=== PATIENT | female | born 1975 | race Caucasian/White ===

== ENCOUNTER 2017-12-14 17:18 | Emergency (ER) | payer MEDICAID, SELFPAY ==
[2017-12-14 17:21] VITALS: BP 151/93; PULSE 100; RESP 22; TEMP 37.2; BMI 29.9
== END 2017-12-14 18:11 | disposition left against medical advice (07) ==
LOC: ED 18:10
PROVIDERS: Emergency Provider Emergency Medicine; Family Provider Family Medicine; PCP Family Medicine
DX: R69 Illness, unspecified (principal)

== ENCOUNTER 2018-01-26 17:08 | Emergency (ER) | payer OTHER, SELFPAY ==
[2018-01-26 17:10] VITALS: BP 115/68; PULSE 104; RESP 18; TEMP 36.7; O2SAT 98; BMI 30.1
--- NOTE | 2018-01-26 17:32 | ED.VISSUMM ---
- ER Visit Summary Date of Service: 01/26/18 Chief Complaint: [Back injury] History of Present Illness: The patient is a 42 F [presents to the emergency department with injury to her back that occurred approximately 4 PM today. Patient states that she needed apart so she reached overhead move a palate that was above her head. The palate shifted patient twisted her back. Patient felt a pop in her back. Patient complains of pain radiating down the backside of her right leg. She states she has had similar symptoms in the past and she had an MRI about a year ago that showed a herniated disc but does not remember what level. Patient denies loss of bowel or bladder function. She denies any saddle anesthesia.] Physical Examination: [HEENT-PERRLA, EOMI. Cranial nerves II through XII grossly intact. TMs clear. Mucous membranes moist. No adenopathy. Cardiovascular-regular rate and rhythm without murmur or ectopy Lungs-clear to auscultation, chest wall stable without crepitus or subcu emphysema Abdomen-normoactive bowel sounds, soft, nontender, no rebound or rigidity, no peritoneal signs. Back exam-patient has tenderness to palpation over the right lumbar paraspinal musculature. Patient has tenderness over the right buttock and right piriformis muscle. Patient has a positive straight leg raise with pain at about 20?. Deep tendon reflexes are plus 2 out of 4 bilaterally at the patella and Achilles. Patient has normal L5 extension bilaterally. Patient has somewhat decreased sensation to light touch over the lateral aspect of the right calf. Extremities-intact ?4, normal range of motion, normal pulses, atraumatic] Test Results: [None indicated] Emergency Department Course and Treatment: [Patient was medicated with Dilaudid and Norflex. Patient required second and third dose of Dilaudid for pain. She is feeling much improved at this time. Patient was given option of admission for pain control versus home with pain meds and outpatient follow-up. Patient does not want to be admitted at this time.] Treatment Plan: [Patient to follow-up with [facility] within next 3-5 days and given work restriction's.] Patient given a prescription for Flexeril and Percocet. Disposition: [Discharged home in stable condition] Impression: [Lumbar radiculopathy Lumbar strain] This note was generated with [employer] software. It may contain incorrect words, spelling, and punctuation that were not noted in review of the chart prior to signing ED Disposition - Plan for ED Patient: Chief Complaint: Back Referrals: Care Physician,No Primary [Primary Care Provider] -
[2018-01-26] MEDS: HYDROmorphone 1 MG/ML Syringe IM ×3 (17:38→19:42)
[2018-01-26] MEDS: Orphenadrine 60 MG/2 ML Ampul IM (17:38)
[2018-01-26] MEDS: Ondansetron ODT 4 MG Tablet PO (17:50)
--- NOTE | 2018-01-26 19:10 | ED.DEP ---
ED Disposition - Plan for ED Patient: Chief Complaint: Back Instructions: ED Spasm Back No Trauma, ED Sciatica Prescriptions: Oxycodone HCl/Acetaminophen [Percocet 5/325] 1 tab PO Q6H PRN PRN 5 Days #20 tab PRN Reason: Pain Cyclobenzaprine [Flexeril] 10 mg PO TID PRN #20 tab PRN Reason: Muscle Spasm Referrals: Care Physician,No Primary [Primary Care Provider] - [facility] - 3-5 Days
[2018-01-26 20:25] VITALS: BP 127/75; PULSE 75; RESP 18; O2SAT 95
== END 2018-01-26 20:26 | disposition home or self-care (01) ==
PROVIDERS: Emergency Provider Emergency Medicine
DX: M54.16 Radiculopathy, lumbar region (principal); S39.012A Strain of muscle, fascia and tendon of lower back, initial encounter; M79.7 Fibromyalgia; Z72.0 Tobacco use; Z79.899 Other long term (current) drug therapy; X50.1XXA Overexertion from prolonged static or awkward postures, initial encounter; Y93.89 Activity, other specified; Y92.1 Institutional (nonprivate) residence as the place of occurrence of the external cause; Y99.8 Other external cause status
CPT/HCPCS: 99282

== ENCOUNTER 2018-02-10 21:17 | Emergency (ER) | payer OTHER, SELFPAY ==
[2018-02-10 21:19] VITALS: BP 126/102; PULSE 113; RESP 16; TEMP 36.8; O2SAT 99; BMI 30.1
[2018-02-10] MEDS: HYDROcodone Bitartrate/Apap 5/325 Tablet PO (21:50)
[2018-02-10] MEDS: predniSONE 20 MG Tablet 40 MG PO (21:50)
--- NOTE | 2018-02-10 22:03 | ED.VISSUMM ---
- ER Visit Summary Date of Service: 02/10/18 Chief Complaint: Low back pain History of Present Illness: The patient is a 42 F who presents for several days of low back pain status post an injury at work. Patient was seen on January 26 of this year for a Worker's Comp. injury, in which she injured her lower back while at work. Patient states that she is taking Flexeril currently without any relief. Her pain is severe located in the bilateral lower back and radiating down into her right leg to the toes. She states she is under work restrictions to only sit or to stand on a concrete floor, and her back is not getting any better. Pain is worse with moving and standing. She has tried heat without improvement. Flexeril is not working. Patient states she is allergic to all NSAIDs. She was given prescription for Percocet with some improvement. Pain is sharp. Patient denies any fever, abdominal pain, urinary or bowel incontinence or retention. Patient had an MRI recently and brought the report with her. Physical Examination: Vital signs: afebrile, hemodynamically stable, no hypoxia on room air General: well nourished, well developed, in no distress but tearful Skin: warm, dry, no rash, no pallor HEENT: normocephalic and atraumatic; PERRL, EOMI, moist mucous membranes Cardiovascular: tachycardic rate and rhythm without murmurs, no peripheral edema, 2+ pulses all distal extremities Respiratory: No increased work of breathing, lungs are clear to auscultation bilaterally, no rales, rhonchi or wheezing Abdominal: Abdomen is soft, nontender with normoactive bowel sounds, no guarding or rebound, no masses Back: Diffuse tenderness to palpation in the lumbar paraspinal musculature bilaterally and diffusely in the midline, no foreign bodies, step-offs, fluctuance or induration; no erythema --patient is very waite diffusely and evenly MSK: Moves all extremities, no deformities, weakness with plantar flexion, dorsiflexion and EHL in the right lower extremity with poor effort. Patellar reflexes are 2+ and symmetric. Patient has diffuse diminished sensation to light touch in the right lower extremity following no dermatomal or radicular pattern. Neuro: Awake and alert, oriented ?4. No facial droop, sensation and motor function intact and symmetric Test Results: [] Emergency Department Course and Treatment: Discussed with patient that back injuries and back pain take days to weeks to heal. Patient already has an MRI performed which she brought with her, and it showed no concerning findings that would require emergent spinal decompression or further emergent evaluation. Oars report was performed on patient and shows 2 prescriptions for Percocet since the injury occurred and multiple prescriptions from multiple providers for opiates and benzodiazepines. Patient states she does take clonazepam on a regular basis anxiety. Discussed with her that I cannot write her an opiate prescription due to her multiple recent prescriptions as well as the fact she is also a benzodiazepine, and a combination of the 2 increases her risk of accidental overdose and . Patient is allergic to all NSAIDs per the patient, and thus stated she cannot take any of those. She is taking Tylenol and states it does not work. Patient was given a dose of prednisone and a Medrol Dosepak prescription to see if that will help her pain. Patient's neuro exam was diffuse in the right lower extremity and did not clinically make sense, as it would be expected patient would have sensory and motor deficits in a specific nerve pattern rather than on the hip down. Patient gave poor effort on her strength examination. Thus I do not think her sensory and motor deficits reflect any active nerve compression. Patient requested a work excuse for tomorrow, and we discussed she is under the care of Worker's Comp. and already has work restrictions in place. She needs to follow-up with her Worker's Comp. physician if she needs any adjustments to her work restrictions. She was discharged home. She walked out of the emergency department with an even gait and no evidence of footdrop or limp. Treatment Plan: [] Disposition: [] Impression: lower back injury, subsequent visit This note was generated with [email or web address] dictation software. It may contain incorrect words, spelling, and punctuation that were not noted in review of the chart prior to signing ED Disposition - Plan for ED Patient: Disposition: Home or Assisted Living Chief Complaint: Back Instructions: ED Low Back Pain Injury Prescriptions: MethylPREDNISolone DosePak [Medrol DosePak] 4 mg PO UD #1 box Referrals: Care Physician,No Primary [Primary Care Provider] - Doctor,Your [STAFF PHYSICIAN] - As soon as possible Additional Instructions: Please continue using the Flexeril that you have previously been prescribed as needed for your pain. Use [id number] pain medication of your choice. Please take the steroid Dosepak as directed to help further with your pain. We will need to follow-up with your Worker's Comp physician for further discussion of work restrictions. Please keep your scheduled appointment or call to schedule an appointment for sooner date if possible.
[2018-02-10 22:12] VITALS: RESP 16
== END 2018-02-10 22:12 | disposition home or self-care (01) ==
PROVIDERS: Emergency Provider Emergency Medicine
DX: S39.012D Strain of muscle, fascia and tendon of lower back, subsequent encounter (principal); X58.XXXD Exposure to other specified factors, subsequent encounter; R20.2 Paresthesia of skin; R53.1 Weakness; F41.9 Anxiety disorder, unspecified; Z79.899 Other long term (current) drug therapy
CPT/HCPCS: 99283

== ENCOUNTER 2018-04-10 17:39 | Emergency (ER) | payer BC, MEDICAID, SELFPAY ==
[2018-04-10 17:40] VITALS: BP 150/85; PULSE 91; RESP 16; TEMP 36.6; O2SAT 98; BMI 32.1
[2018-04-10] MEDS: 0.9% Normal Saline 1,000 ML 150 ML IV (18:50)
[2018-04-10] MEDS: MethylPREDNISolone 125 MG/2 ML Vial IV (18:50)
[2018-04-10] MEDS: DiphenhydrAMINE 50 MG/ML Syringe 25 MG IV (18:51)
[2018-04-10] MEDS: Ondansetron 4 MG/2 ML Vial IV (18:51)
[2018-04-10 18:55] LABS: Absolute Lymphocyte Count 3.22 X10^3/ul (0.83-4.51); Absolute Neutrophil Count 6.1 X10^3/uL (2.0-7.7); Basophil# 0.04 X10^3/uL; Basophil% 0.4 % (0-1); Eosinophil# 0.17 X10^3/uL; Eosinophils% 1.7 % (0-5); Hematocrit 45.4 % (37-47); Hemoglobin 15.1 g/dl (12.0-15.0); Lymphocyte # 3.22 X10^3/ul (4.0); Lymphocyte % 31.7 % (19-41); Mean Corp Hgb Conc 33.3 g/gl (32-36); Mean Corpuscular Hgb 32.1 pg (27.0-32.0); Mean Corpuscular Volume 96.6 fL (81-99); Monocyte# 0.56 X10^3/uL; Monocyte% 5.5 % (0-10); Neutrophil # 6.14 X10^3/uL (2.7-7.7); Neutrophil % 60.5 % (47-70); Platelet Count 237 K/mm3 (150-450); RBC Distribution Width SD 45.6 fl (35.1-43.9); White Blood Count 10.2 K/mm3 (4.4-11.0)
[2018-04-10 18:57] LABS: International Normalized Ratio 0.9; Prothrombin Time (Protime)PT. 12.4 SECONDS (11.7-14.9)
[2018-04-10 19:04] LABS: Anion Gap 7 (5-15); BUN 9 mg/dL (7-18); BUN/Creat Ratio 10.9 RATIO (10-20); Calcium,Total 9.1 mg/dL (8.5-10.1); Chloride 109 mmol/L (98-107); Creatinine, Serum 0.82 mg/dL (0.55-1.02); EST Glomerular Filtration Rate 81 mL/min (>60); Est Glom Filt Rate - Afr Amer 98 mL/min (>60); Estimated Creatinine Clearance 74.69 ml/min; Glucose 85 mg/dL (74-106); Potassium 3.6 mmol/L (3.5-5.1); Sodium Level 140 mmol/L (136-145)
[2018-04-10 19:06] LABS: POSITIVE COUNT NO; POSITIVE DIFFERENTIAL NO; POSITIVE MORPHOLOGY NO
[2018-04-10 19:10] LABS: Pregnancy, Serum, hCG Quali. NEGATIVE Negative (0-9 Nonpreg)
[2018-04-10 19:14] VITALS: BP 127/88; PULSE 81; RESP 20; O2SAT 100
[2018-04-10 20:04] VITALS: BP 139/86; PULSE 71; RESP 18; O2SAT 100
[2018-04-10] MEDS: HYDROmorphone 0.5 MG/0.5 ML SYRINGE IV ×2 (20:04→21:10)
[2018-04-10 20:30] VITALS: BP 150/89; PULSE 71; RESP 18; O2SAT 96
[2018-04-10] MEDS: Metoclopramide 10 MG/2 ML Vial IV (21:10)
[2018-04-10] MEDS: DiphenhydrAMINE 50 MG/ML Syringe 12.5 MG IV (21:10)
--- NOTE | 2018-04-10 22:40 | ED.VISSUMM ---
- ER Visit Summary Date of Service: 04/10/18 Chief Complaint: Headache History of Present Illness: The patient is a 43 F with a history of migraines. Patient states she had gradual onset of a slight headache with some double vision. Headache and suddenly worsened. She reported had a syncopal episode at work. She denies any recent head trauma. No URI symptoms. She does state her father of a stroke at age 40. Patient has had multiple imaging studies of her head and denies known history of aneurysm. Physical Examination: Blood pressure is 150/85, other vitals normal. Patient's lying in a darkened room with a washcloth over her eyes. Pupils are equal and reactive. Neck is nontender with no meningismus. Heart is regular rate and rhythm. Lung sounds are clear. Abdomen is soft nontender. Neuro exam reveals no focal deficits with good strength and sensation throughout. Test Results: Noncontrast head CT is unremarkable. CTA head is unremarkable. Blood work unremarkable. test is negative. Emergency Department Course and Treatment: Patient does have an allergy to IV contrast and due to initial concern for possible subarachnoid hemorrhage was pretreated with Benadryl, Zofran, and Solu-Medrol. After noncontrast head CT returned okay she was given a small dose of Dilaudid. Patient does have multiple allergies to pain medication and other options were not easily available. Patient was sent for a CTA of the head which was unremarkable. Due to continued pain she did receive 1 final dose of Dilaudid, Reglan, and Benadryl. On final repeat evaluation she is sitting up looking around the room. She states she feels significantly improved and wishes to go home. Test results were discussed with the patient and family at bedside. Treatment Plan: [] Disposition: Discharge Impression: Cephalgia, resolved This note was generated with [employer] dictation software. It may contain incorrect words, spelling, and punctuation that were not noted in review of the chart prior to signing ED Disposition - Plan for ED Patient: Disposition: Home or Assisted Living Chief Complaint: Headache Instructions: ED Headache Migraine Prescriptions: proMETHazine tablet [Phenergan] 25 mg PO Q6H PRN PRN #10 tablet PRN Reason: Nausea Referrals: Ish Zhu MD [STAFF PHYSICIAN] - As Needed
[2018-04-10 22:50] VITALS: BP 115/83; PULSE 81; RESP 16; O2SAT 99
[2018-04-10] MEDS: proMETHazine 25 MG Tablet PO (22:50)
== END 2018-04-10 22:51 | disposition home or self-care (01) ==
PROVIDERS: Emergency Provider Emergency Medicine
DX: G43.909 Migraine, unspecified, not intractable, without status migrainosus (principal); K21.9 Gastro-esophageal reflux disease without esophagitis; F41.9 Anxiety disorder, unspecified; F32.9 Major depressive disorder, single episode, unspecified; Z90.710 Acquired absence of both cervix and uterus; Z79.899 Other long term (current) drug therapy; Z72.0 Tobacco use
CPT/HCPCS: 70450; 70496; 80048; 84703; 85025; 85610; 85730; 96361; 96374; 96375; 96376; 99284; J7030; Q9967; A4216

== ENCOUNTER 2018-06-16 17:10 | Emergency (ER) | payer BC, SELFPAY ==
[2018-06-16 17:11] VITALS: BP 132/78; PULSE 87; RESP 22; TEMP 36.6; O2SAT 98; BMI 30.1
--- NOTE | 2018-06-16 17:31 | CT_ITS ---
STUDY: CT ABDOMEN AND PELVIS WITHOUT CONTRAST REASON FOR EXAM: Female, 43 years old. Right-sided abdominal pain RADIATION DOSAGE (If Supplied By Facility): CTDIvol = ( 8.32 ) mGy, DLP = ( 382.49 ) mGycm TECHNIQUE: Transaxial images were obtained from the dome of the diaphragm to the symphysis pubis without oral contrast, and without intravenous contrast. Sagittal and coronal images were reconstructed. # of Images: 429 Individualized dose optimization techniques were used for this CT. COMPARISON: 12/06/2013 FINDINGS: The visualized lung bases are unremarkable. The visualized portions of the heart are within normal limits. Normal liver. Normal gallbladder and extrahepatic biliary system. Normal spleen. Normal pancreas. Normal bilateral adrenal glands. Normal right kidney. Normal left kidney. Normal visualized stomach. Normal small intestine. Normal colon. The appendix is visualized and appears normal. Normal abdominal aorta. Normal inferior vena cava. Normal retroperitoneum. Normal urinary bladder. Multiseptated cystic structure in the left adnexa measuring roughly 8.9 x 5.3 cm. Probable complicated ovarian or paraovarian cyst. Status post hysterectomy. Normal abdominal wall. Normal osseous structures. CT/Abdomen/Pelvis without Cont IMPRESSION: 1. No evidence of urolithiasis or renal obstruction 2. Unremarkable appendix 3. Large multiseptated cystic structure in the left adnexa, likely adnexal cyst versus ovarian cyst. Recommend pelvic ultrasound to further evaluate Electronically Signed: Kwasi Willett DO at 18:41 EDT Tel , Service support ,
--- NOTE | 2018-06-16 17:33 | ED.DCSUM_ITS ---
- ER Visit Summary Date of Service: 06/16/18 Chief Complaint: Right flank pain History of Present Illness: The patient is a 43 F presenting with right flank and right lower quadrant abdominal pain. She states this started suddenly while at work. She has nausea with no vomiting. Denies fever. Denies dysuria or hematuria. She has never had these symptoms in the past. Denies other complaints. Physical Examination: Vitals are stable. Patient is afebrile. Alert no acute distress. HEENT exam is unremarkable. Neck is supple. Lungs are clear and equal bilaterally. Heart is regular rate and rhythm. Abdomen is soft right lower quadrant tenderness with no rebound or guarding Pelvic: No cervical motion tenderness, left adnexal tenderness. No discharge Back: Right CVA tenderness Extremities are unremarkable. Skin is warm and dry. Remainder of exam is unremarkable. Emergency Department Course and Treatment: Patient is given morphine, Zofran IV. CT abdomen pelvis shows no evidence of urolithiasis or renal obstruction, unremarkable appendix, large multiseptated cystic structure in the left adnexa, likely adnexal cyst versus ovarian cyst. Recommend pelvic ultrasound to further evaluate. Pelvic ultrasound shows 2 left ovarian cysts, one is simple in appearance and the second is complex in appearance. Recommend repeat pelvic ultrasound in 4-6 weeks. Status post hysterectomy. Normal right ovary. Patient initially felt the pain on the right but she states it does radiate to the left side as well. Patient was given Dilaudid IV with improvement of her symptoms. CBC, chemistries unremarkable. Urinalysis is unremarkable. Patient is given prescription for short course of [place]. 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 Advised return to ED for worsening complaints. Disposition: Discharge home Impression: Left ovarian cyst This note was generated with [employer] dictation software. It may contain incorrect words, spelling, and punctuation that were not noted in review of the chart prior to signing ED Disposition - Plan for ED Patient: Chief Complaint: Flank Pain Instructions: ED Cyst Ovarian Prescriptions: Hydrocodone Bitart/Apap 5-325 [[place] 5MG-325MG] 1 tablet PO Q6H PRN PRN 3 Days #10 tablet PRN Reason: Pain Referrals: Becca Gaines MD [STAFF PHYSICIAN] - Care Physician,No Primary [NON-STAFF] -
[2018-06-16] MEDS: Morphine 4 MG/ML Syringe IV ×2 (17:37→21:17)
[2018-06-16] MEDS: Ondansetron 4 MG/2 ML Vial IV (17:37)
[2018-06-16 17:52] LABS: Bacteria 0 SEEN /hpf (None Seen); Mucous, Urine 0 SEEN /hpf (<or=2+); Red Blood Cells-Urine 0 SEEN /hpf (0-5); White Blood Cells 0 SEEN /hpf (0-5)
[2018-06-16 17:56] LABS: Absolute Lymphocyte Count 3.65 X10^3/ul (0.83-4.51); Basophil# 0.05 X10^3/uL; Basophil% 0.5 % (0-1); Eosinophils% 2.1 % (0-5); Hematocrit 41.7 % (37-47); Hemoglobin 14.4 g/dl (12.0-15.0); Lymphocyte # 3.65 X10^3/ul (4.0); Mean Corp Hgb Conc 34.5 g/gl (32-36); Mean Corpuscular Hgb 33.3 pg (27.0-32.0); Mean Corpuscular Volume 96.3 fL (81-99); Mean Platelet Vol. 11.9 fl (6.2-12.0); Monocyte# 0.67 X10^3/uL; Neutrophil % 52.1 % (47-70); Platelet Count 197 K/mm3 (150-450); RBC Distribution Width CV 12.2 % (11.6-14.6); RBC Distribution Width SD 41.9 fl (35.1-43.9); Red Blood Count 4.33 M/mm3 (4.2-5.4); White Blood Count 9.6 K/mm3 (4.4-11.0)
[2018-06-16 17:58] LABS: POSITIVE COUNT NO; POSITIVE DIFFERENTIAL NO; POSITIVE MORPHOLOGY NO
[2018-06-16 18:02] LABS: Color, Urine Yellow (Yellow); Glucose, Dipstick Normal (Normal); Ketone-Dipstick Negative (Negative); Leukocyte Esterase-Dipstick Negative /ul (Negative); Nitrite-Dipstick Negative (Negative); Occult Blood-Urine Negative /ul (Negative); Protein-Dipstick Negative (Negative); Urine Bilirubin Dipstick Negative (Negative); Urine Clarity Clear (Clear); Urine Urobilinogen Normal (Normal)
[2018-06-16 18:15] LABS: Anion Gap 8 (5-15); BUN 11 mg/dL (7-18); BUN/Creat Ratio 14.3 RATIO (10-20); Chloride 109 mmol/L (98-107); Creatinine, Serum 0.77 mg/dL (0.55-1.02); EST Glomerular Filtration Rate 88 mL/min (>60); Est Glom Filt Rate - Afr Amer 106 mL/min (>60); Estimated Creatinine Clearance 79.54 ml/min; Glucose 85 mg/dL (74-106); Potassium 3.9 mmol/L (3.5-5.1); Sodium Level 142 mmol/L (136-145)
[2018-06-16 18:26] LABS: Squamous Epithelial Cells - UA 0-5 SEEN /hpf (5-10)
[2018-06-16] MEDS: HYDROmorphone 1 MG/ML Syringe IV (18:32)
--- NOTE | 2018-06-16 19:20 | US_ITS ---
STUDY: ULTRASOUND OF THE FEMALE PELVIS - COMPLETE REASON FOR EXAM: Female, 43 years old. Pelvic pain LMP: Unknown. TECHNIQUE: Transabdominal and Transvaginal # of Images: 50 TECHNICAL QUALITY: Adequate. COMPARISON: CT abdomen and pelvis earlier FINDINGS: Status post hysterectomy The right ovary is visualized. The right ovary measures 2.5 x 1.6 x 1.6 cm. There is no right ovarian cyst or ovarian mass. There is no visualized right adnexal mass or complex lesion. There is normal arterial and normal venous vascularity. The left ovary is visualized. The left ovary measures 8.4 x 7.1 x 5.4 cm. There are 2 ovarian cysts, one measures 4.6 x 4.8 x 5.0 cm. This cyst is anechoic and simple in appearance. A second cyst is noted measuring 5.1 x 4.9 x 4.6 cm. This is complex in nature with a soft tissue mural component, without vascularity. There is no visualized left adnexal mass or complex lesion. There is normal arterial and normal venous vascularity. There is no fluid in the cul-de-sac. The pre void volume of the bladder was 50 ml. US/Pelvic (Non ) IMPRESSION: 2 left ovarian cysts, one is simple in appearance and the second is complex in appearance. Recommend repeat pelvic ultrasound in 4-6 weeks. Status post hysterectomy. Normal right ovary. Electronically Signed: Kwasi Willett DO at 21:52 EDT Tel , Service support ,
--- NOTE | 2018-06-16 19:20 | US_ITS ---
STUDY: ULTRASOUND OF THE FEMALE PELVIS - COMPLETE REASON FOR EXAM: Female, 43 years old. Pelvic pain LMP: Unknown. TECHNIQUE: Transabdominal and Transvaginal # of Images: 50 TECHNICAL QUALITY: Adequate. COMPARISON: CT abdomen and pelvis earlier FINDINGS: Status post hysterectomy The right ovary is visualized. The right ovary measures 2.5 x 1.6 x 1.6 cm. There is no right ovarian cyst or ovarian mass. There is no visualized right adnexal mass or complex lesion. There is normal arterial and normal venous vascularity. The left ovary is visualized. The left ovary measures 8.4 x 7.1 x 5.4 cm. There are 2 ovarian cysts, one measures 4.6 x 4.8 x 5.0 cm. This cyst is anechoic and simple in appearance. A second cyst is noted measuring 5.1 x 4.9 x 4.6 cm. This is complex in nature with a soft tissue mural component, without vascularity. There is no visualized left adnexal mass or complex lesion. There is normal arterial and normal venous vascularity. There is no fluid in the cul-de-sac. The pre void volume of the bladder was 50 ml. US/Transvaginal Non- IMPRESSION: 2 left ovarian cysts, one is simple in appearance and the second is complex in appearance. Recommend repeat pelvic ultrasound in 4-6 weeks. Status post hysterectomy. Normal right ovary. Electronically Signed: Kwasi Willett DO at 21:52 EDT Tel , Service support ,
[2018-06-16 19:29] VITALS: BP 122/77; PULSE 81; RESP 16; O2SAT 95
[2018-06-16 21:01] VITALS: RESP 16
--- NOTE | 2018-06-16 22:33 | ED.DEP ---
ED Disposition - Plan for ED Patient: Chief Complaint: Flank Pain Instructions: ED Cyst Ovarian Prescriptions: Hydrocodone Bitart/Apap 5-325 [[place] 5MG-325MG] 1 tablet PO Q6H PRN PRN 3 Days #10 tablet PRN Reason: Pain Referrals: Care Physician,No Primary [NON-STAFF] - Becca Gaines MD [STAFF PHYSICIAN] -
--- NOTE | 2018-06-16 22:37 | DCINST.ED_ITS ---
ED Disposition - Plan for ED Patient: Chief Complaint: Flank Pain Instructions: ED Cyst Ovarian Prescriptions: Hydrocodone Bitart/Apap 5-325 [[place] 5MG-325MG] 1 tablet PO Q6H PRN PRN 3 Days #10 tablet PRN Reason: Pain Referrals: Care Physician,No Primary [NON-STAFF] - Becca Gaines MD [STAFF PHYSICIAN] -
[2018-06-16] MEDS: HYDROcodone Bitartrate/Apap 5/325 Tablet PO (22:43)
[2018-06-16 22:50] VITALS: BP 111/72; PULSE 77; RESP 16; O2SAT 95
--- NOTE | 2018-06-16 22:51 | ED.RN ---
REVIEWED D/C INSTRUCTIONS, FOLLOW UP CARE, PRESCRIPTION, AND S/S THAT WOULD WARRANT A RETURN TO THE ED WITH PT. PT VERBALIZED AN UNDERSTANDING AND DENIES FURTHER QUESTIONS FOR THIS RN. PT SKIN P/W/D, RESP EVEN AND UNLABORED, PT A&O X 3, NO DISTRESS NOTED. PT AMBULATED OUT OF ED, GAIT STEADY.
== END 2018-06-16 22:53 | disposition home or self-care (01) ==
PROVIDERS: Emergency Provider Emergency Medicine; Family Provider Family Medicine; PCP Family Medicine
DX: N83.202 Unspecified ovarian cyst, left side (principal); M79.7 Fibromyalgia; Z90.710 Acquired absence of both cervix and uterus; Z79.899 Other long term (current) drug therapy; Z72.0 Tobacco use
CPT/HCPCS: 74176; 76830; 76856; 80048; 81001; 85025; 93976; 96374; 96375; 96376; 99283; A4216; J2405

== ENCOUNTER 2018-06-19 01:54 | Observation (INO) | payer BC, SELFPAY ==
[2018-06-19] VITALS (8 sets, daily range): BP systolic 88–128; BP diastolic 47–82; PULSE 68–90; RESP 14–18; TEMP 36.5–37.3; O2SAT 93–100; BMI 31.1; BMI 30.5
[2018-06-19 02:19] LABS: Bacteria 0 SEEN /hpf (None Seen); Mucous, Urine 0 SEEN /hpf (<or=2+)
[2018-06-19 02:24] LABS: Color, Urine Yellow (Yellow); Glucose, Dipstick Normal (Normal); Ketone-Dipstick Negative (Negative); Leukocyte Esterase-Dipstick 25 /ul (Negative); Nitrite-Dipstick Negative (Negative); Occult Blood-Urine 10 /ul (Negative); Protein-Dipstick 30 mg/dl (Negative); Specific Gravity, Urine 1.015 (1.002-1.030); Urine Bilirubin Dipstick Negative (Negative); Urine Clarity Sl. Cloudy (Clear); Urine Urobilinogen 1 mg/dl (Normal)
[2018-06-19 02:28] LABS: Absolute Lymphocyte Count 3.96 X10^3/ul (0.83-4.51); Absolute Neutrophil Count 5.2 X10^3/uL (2.0-7.7); Basophil# 0.06 X10^3/uL; Basophil% 0.6 % (0-1); Eosinophil# 0.19 X10^3/uL; Eosinophils% 1.9 % (0-5); Hematocrit 42.8 % (37-47); Hemoglobin 14.5 g/dl (12.0-15.0); Lymphocyte # 3.96 X10^3/ul (4.0); Lymphocyte % 39.6 % (19-41); Mean Corp Hgb Conc 33.9 g/gl (32-36); Mean Corpuscular Hgb 32.8 pg (27.0-32.0); Mean Corpuscular Volume 96.8 fL (81-99); Mean Platelet Vol. 11.1 fl (6.2-12.0); Monocyte# 0.62 X10^3/uL; Monocyte% 6.2 % (0-10); Neutrophil # 5.16 X10^3/uL (2.7-7.7); Neutrophil % 51.5 % (47-70); Platelet Count 196 K/mm3 (150-450); RBC Distribution Width CV 12.3 % (11.6-14.6); RBC Distribution Width SD 42.8 fl (35.1-43.9); Red Blood Count 4.42 M/mm3 (4.2-5.4)
[2018-06-19 02:31] LABS: Squamous Epithelial Cells - UA 25-50 SEEN /hpf (5-10); White Blood Cells 0-5 SEEN /hpf (0-5)
[2018-06-19 02:32] LABS: Red Blood Cells-Urine 0-5 SEEN /hpf (0-5)
[2018-06-19 02:32] LABS: POSITIVE COUNT NO; POSITIVE DIFFERENTIAL NO; POSITIVE MORPHOLOGY NO
[2018-06-19 02:42] LABS: Anion Gap 5 (5-15); BUN 10 mg/dL (7-18); BUN/Creat Ratio 13.1 RATIO (10-20); Calcium,Total 8.4 mg/dL (8.5-10.1); Chloride 109 mmol/L (98-107); Creatinine, Serum 0.76 mg/dL (0.55-1.02); EST Glomerular Filtration Rate 88 mL/min (>60); Est Glom Filt Rate - Afr Amer 107 mL/min (>60); Estimated Creatinine Clearance 80.58 ml/min; Glucose 106 mg/dL (74-106); Potassium 3.6 mmol/L (3.5-5.1); Sodium Level 140 mmol/L (136-145)
[2018-06-19] MEDS: Ondansetron 4 MG/2 ML Vial IV (02:47)
[2018-06-19] MEDS: HYDROmorphone 1 MG/ML Syringe IV ×3 (02:47→10:58)
[2018-06-19 02:50] LABS: Pregnancy, Serum, hCG Quali. NEGATIVE Negative (0-9 Nonpreg)
--- NOTE | 2018-06-19 02:51 | CT_ITS ---
STUDY: CT ABDOMEN AND PELVIS WITHOUT CONTRAST REASON FOR EXAM: Female, 43 years old. Abdominal pain, nausea, bloating. RADIATION DOSAGE (If Supplied By Facility): CTDIvol = ( 8.70 ) mGy, DLP = ( 441.03 ) mGycm TECHNIQUE: Transaxial images were obtained from the dome of the diaphragm to the symphysis pubis with oral contrast, and without intravenous contrast. Sagittal and coronal images were reconstructed. Individualized dose optimization techniques were used for this CT. COMPARISON: June 16, 2018. December 06, 2013. Pelvic ultrasound June 19, 2018. FINDINGS: The visualized lung bases are unremarkable. The visualized portions of the heart are within normal limits. There is decreased attenuation of the liver consistent with steatosis. Normal gallbladder and extrahepatic biliary system. Normal spleen. Normal pancreas. Normal bilateral adrenal glands. Normal right kidney. Normal left kidney. Normal visualized stomach. Normal small intestine. At the time of imaging only the stomach, duodenum and proximal/mid jejunum were opacified with oral contrast. Normal colon. The appendix is visualized and appears normal. Normal abdominal aorta. Normal inferior vena cava. Normal retroperitoneum. No intra-abdominal free air. Normal urinary bladder. Uterus grossly normal. 7.7 x 5.7 cm minimally complex left ovarian cyst, unchanged since the recent prior CT scan and not present on the study of November 2013. The thickened septation seen on the ultrasound is not appreciated on this study. Normal abdominal wall. Normal osseous structures. CT/Abdomen/Pel W ORAL Cont Only IMPRESSION: No acute findings in the abdomen or pelvis. Fatty liver. Enlarged left ovary containing a 7.7 cm minimally complex left ovarian cyst. There is a thickened septation within the cyst on the pelvic ultrasound not appreciated on this study. Considerations include both benign and malignant neoplasms. Recommend SCRIPT WORKER consult. No evidence of bowel obstruction. Electronically Signed: Yury Ann MD at 5:38 EDT , Service support ,
--- NOTE | 2018-06-19 02:51 | US_ITS ---
STUDY: ULTRASOUND TRANSVAGINAL CLINICAL: Female, 43 years old. Ovarian cyst. TECHNIQUE: Transvaginal COMPARISON: 06/16/2018. CT abdomen and pelvis June 16, 2018. FINDINGS: Uterus is absent. Right ovary not visualized. Left ovary measures 8.8 x 6.3 x 4.8 cm and contains an anechoic cyst measuring 8.0 x 6.1 x 4.4 cm which contains a thickened septation.. There is no free fluid in the pelvis. Polycystic ovary disease: No. US/Transvaginal Non- IMPRESSION: Enlarged left ovary containing an 8 cm cyst with a thick septation. Considerations include both benign and malignant neoplasms. Recommend AUTOMATIC OPERATOR consult. Electronically Signed: Yury Ann MD at 4:54 EDT , Service support ,
[2018-06-19] MEDS: HYDROmorphone 0.5 MG/0.5 ML SYRINGE IV (04:09)
--- NOTE | 2018-06-19 04:55 | ED.VISSUMM ---
- ER Visit Summary Date of Service: 06/19/18 Chief Complaint: Abdominal pain History of Present Illness: The patient is a 43 F presenting with left lower quadrant abdominal pain. This started 3 days ago. She was seen in the ED at that time. She had a CT scan and pelvic ultrasound which showed a simple and complex left ovarian cyst. She was sent home with [place]. She states [place] is not helping. She believes the pain has worsened. She now complains of bloating as well. She denies fever. Denies other complaints. Physical Examination: Vitals are stable. Patient is afebrile. Alert no acute distress. HEENT exam is unremarkable. Neck is supple. Lungs are clear and equal bilaterally. Heart is regular rate and rhythm. Abdomen is soft left lower quadrant tenderness with no rebound or guarding Extremities are unremarkable. Skin is warm and dry. Remainder of exam is unremarkable. Emergency Department Course and Treatment: Patient was given Dilaudid, Zofran IV. CBC chemistries unremarkable. Urinalysis unremarkable. HCG negative. Pelvic ultrasound shows enlarged left ovary containing an 8 cm cyst with a thick septation. Considerations include both benign and malignant neoplasms. Recommend RECREATION FACILITY ATTENDANT consult. CT abdomen pelvis with po contrast shows no acute findings in the abdomen or pelvis. Fatty liver. Enlarged left ovary containing a 7.7 cm minimally complex left ovarian cyst. Considerations include both benign and malignant neoplasms. Recommend RECREATION FACILITY ATTENDANT consult. No evidence of bowel obstruction. Discussed with Dr Gaines and she will evaluate the patient in the ED. Disposition: pending 911 OPERATOR eval Impression: Complex left ovarian cyst This note was generated with [employer] dictation software. It may contain incorrect words, spelling, and punctuation that were not noted in review of the chart prior to signing ED Disposition - Plan for ED Patient: Chief Complaint: Abd Pain Referrals: Antonino Billy MD [Primary Care Provider] -
--- NOTE | 2018-06-19 07:22 | ED.DEP ---
ED Disposition - Plan for ED Patient: Chief Complaint: Abd Pain Prescriptions: Oxycodone HCl/Acetaminophen [Percocet 5/325] 1 tablet PO Q6H PRN PRN 3 Days #12 tablet PRN Reason: Pain Referrals: Antonino Billy MD [Primary Care Provider] - Becca Gaines MD [STAFF PHYSICIAN] -
--- NOTE | 2018-06-19 07:25 | ED.DEP ---
ED Disposition - Plan for ED Patient: Chief Complaint: Abd Pain Instructions: ED Cyst Ovarian Prescriptions: Oxycodone HCl/Acetaminophen [Percocet 5/325] 1 tablet PO Q6H PRN PRN 3 Days #12 tablet PRN Reason: Pain Referrals: Antonino Billy MD [Primary Care Provider] - Becca Gaines MD [STAFF PHYSICIAN] -
[2018-06-19] MEDS: Lactated Ringers 1,000 ML 75 ML IV (09:45)
--- NOTE | 2018-06-19 11:10 | OV_PTH ---
PATIENT: FELIX ARITA LOC: MS2 U#:[id number] AGE/SX: 43/F [place] [facility] [id number]/[address]: Dr. Becca Gaines MD : 1975 BED: 1 DIS: 06/19/2018 SPEC #: [id number] RECD: 06/20/18 11:50 STATUS: CRISTHIAN REKhanh #: [id number] HERNÁN: 06/19/18 11:[address]: Becca Gaines DEPT: SURGICAL PATHOLOGY RECD BY: Lamont Espinoza ENTERED: 06/20/18 11:51 SP TYPE: OVARY OTHR DR: Dr. Antonino Billy MD Tissues: A - Left ovary B - Appendix, NOS Procedures: Surgery Specimen Level III Surgery Specimen Level IV HEADER OPERATION: Laparoscopic left oophorectomy with extensive lysis of adhesion PRE-OP DIAGNOSIS: Left adnexal mass, left lower quadrant pain TISSUE SUBMITTED: A - Left ovary, B - Appendix MICROSCOPIC DIAGNOSIS A. Left ovary, oophorectomy: A collapsed hemorrhagic cyst, favor physiologic follicular cyst. Adherent portion of fallopian tube, no pathologic diagnosis. B. Appendix: Appendix with luminal obliteration, no pathologic diagnosis. ALEKSANDR:jesus 06/21/18 MICROSCOPIC DESCRIPTION Slides are reviewed. GROSS DESCRIPTION A - Received in fixative is one container labeled with the patient's name and designated left ovary. The specimen consists of a soft to cystic ovary weighing 18 gm and measuring 5 x 3.5 x 2 cm. The outer surface is smooth and is inked black. Sections reveal a collapsed cyst with smooth lining measuring 3 cm in greatest dimension and also multiple cysts filled with clear to hemorrhagic fluid. The large cyst measures 0.5 cm in greatest dimension. Catalogue Illustrator sections are submitted in two cassettes. B - Received is one container labeled with the patient's name and designated appendix. The specimen consists of a C-shaped appendix measuring 5.5 cm in length and up to 0.5 cm in diameter. The attached periappendiceal adipose tissue measures up to 3 cm in width. The serosal surface is waite, glistening. No obvious perforation is identified. The lumen is pin point. No fecalith is identified. Sections of the periappendiceal adipose tissue do not reveal any obvious mass lesions. The entire appendix is submitted in two cassettes as follows: 1 - tip and proximal portion, 2 - rest of the appendix. / ALEKSANDR:jesus 06/20/18 TC:5 CPT: 86478, 52018
--- NOTE | 2018-06-19 11:10 | FLU_PTH ---
PATIENT: FELIX ARITA LOC: MS2 U#:[id number] AGE/SX: 43/F [place] [facility] [id number] RE06/19/[address]: Dr. Becca Gaines MD : 1975 BED: 1 DIS: 06/19/2018 SPEC #: [id number] RECD: 06/20/18 11:49 STATUS: CRISTHIAN NAHID #: [id number] HERNÁN: 06/19/18 11:[address]: Becca Gaines DEPT: CYTOLOGY RECD BY: Lamont Espinoza ENTERED: 06/20/18 11:50 SP TYPE: Fluid OTHR DR: Dr. Antonino Billy MD Tissues: OVARIAN CYST Procedures: Pap Stain (control) Special Stain Group II Surgery Specimen Level IV Cell Block Cytospin Fluid HEADER OPERATION: Laparoscopic left oophorectomy with extensive lysis of adhesions PRE-OP DIAGNOSIS: Left adnexal mass, left lower quadrant pain TISSUE SUBMITTED: Cyst fluid for cytology DIAGNOSIS CYTOLOGY Cyst fluid for cytology (cytospin and cell block): Negative for malignant cells. Paucicellular and bloody specimen. SJ:rg 06/21/18 COMMENT Please correlate with corresponding surgical specimen ([id number]). CYTOLOGY STUDY Slides are reviewed. CYTOLOGY GROSS Received is 20 ml of dark red cloudy fluid with tissue fragments labeled with the patient's name and and designated per the requisition as cyst. Submitted for cytology preparation including cell block. / 06/20/18 TC:5 CPT: 83260, 97105
[2018-06-19] MEDS: Bupivacaine 0.5% PF 10 ML VIAL (12:16)
--- NOTE | 2018-06-19 12:37 | HP.PCM_ITS ---
History of Present Illness Date of Admission: 06/19/18 Chief Complaint: LLQ pain 43-year-old patient presents today with acute onset of left lower quadrant pain for 2 days. She states that sharp and stabbing. It increases and decreases in intensity. It is limiting her activities. It is so intense is making her feel nauseous. Vicodin did not take away her pain completely. She states she has not had pain like this before. She has a remote history of ovarian cyst but nothing in the last few years. She has a history of a total abdominal hysterectomy approximately 4 years ago. She does not have menses because of this. She denies any fevers or chills. She states the pain radiates to her back somewhat and down into her vaginal area. She denies any vaginal bleeding. Past medical history is significant for goiter, Graves' disease, seasonal allergies, fibromyalgia, depression and anxiety, tobacco use disorder Past surgical history is significant for 3 C-sections the last one with a tubal, tonsillectomy with adenoidectomy, CALVIN approximately 4 years ago in the upper port at that time revealed extensive adhesions especially around the left ovary. Past Medical History Allergies amoxicillin trihydrate [From Augmentin] Allergy (Verified 06/19/18 01:58) Hives Gadolinium-MRI Contrast Medium [DYE] Allergy (Verified 06/19/18 01:58) Swelling ibuprofen Allergy (Verified 06/19/18 01:58) Hives Iodinated Contrast- Oral and IV Dye [DYEE] Allergy (Verified 06/19/18 01:58) Swelling ketorolac [From Toradol] Allergy (Verified 06/19/18 01:58) Hives nitrofurantoin macrocrystalline [From Macrodantin] Allergy (Verified 06/19/18 01:58) Hives NSAIDS (Non-Steroidal Anti-Inflamma Allergy (Verified 06/19/18 01:58) Hives potassium clavulanate [From Augmentin] Allergy (Verified 06/19/18 01:58) Hives sulfamethoxazole [From Bactrim] Allergy (Verified 06/19/18 01:58) Hives trimethoprim [From Bactrim] Allergy (Verified 06/19/18 01:58) Hives STERI-STRIPS Allergy (Uncoded 06/19/18 01:58) Other Home Medications: Ambulatory Orders Medication Instructions Recorded Sertraline HCl [Zoloft] 100 mg PO DAILY 01/26/18 Clonazepam [Klonopin] 1 mg PO DAILY PRN 06/19/18 Smoking Status: Current every day smoker Review of Systems Constitutional: Reports: Anorexia, Malaise. Denies: Chills, Weight Change Cardiovascular: Denies: Chest Pain, Chest Tightness, Edema Respiratory: Denies: Cough, Shortness of Breath Gastrointestinal: Reports: Abdominal Pain, Nausea. Denies: Constipation, Diarrhea, Vomiting Genitourinary: Denies: Dysuria, Frequency, Hematuria Gynecological: Denies: Vaginal bleeding, Vaginal discharge, Vaginal itching Skin: Denies: Rash Neurological: Denies: Blurred vision, Change in Speech, Headaches Psychiatric: Reports: Anxiety, Depression Hematologic/ Lymphatic: Denies: Anemia, Easy Bruising, Easy Bleeding, Hx of blood clot VTE Information - Inpt Only VTE Present on Admission: No VTE Mechan Device Prophylaxis: SCD's VTE Pharm Prophylaxis ordered?: No Reason prophylaxis not ordered:: Treatment Not Indicated - Physical Exam General: Alert, Cooperative, No apparent distress HEENT: Atraumatic, PERRLA Neck: Supple Lungs: Clear to auscultation, No rhonchi, No wheeze, No rales Cardiovascular: Regular rate, Regular Rhythm Abdomen: Soft, Distended - moderately, Obese, Guarding, Tender - moderately, - - pain worse LLQ Exam: Normal mons pubis, normal labia majora and minora. Normal hair distribution pattern. Normal introitus and perineum. Normal urethra and anus. Vagina with pink moist mucous membranes and normal rugae and physiological discharge. Cervix and uterus are surgically absent. Moderate tenderness in the left lower quadrant with a fullness that not well-defined. Right lower quadrant adnexal area is less tender but still mildly tender. Extremities: No clubbing, No edema Skin: No rashes Psych/Mental Status: Normal Affect, Appropriate Comment: [employer] exam: Normal mons pubis, normal labia majora and minora. Normal vagina Vital Signs Temp Pulse Resp BP Pulse Ox 98.4 F 68 14 106/58 L 99 06/19/18 09:19 06/19/18 11:08 06/19/18 11:08 06/19/18 11:08 06/19/18 11:08 Oxygen Delivery Method Room Air Weight: 78.188 kg Body Mass Index (BMI) 30.5 Laboratory Tests Past 24 Hrs 06/19/18 06/19/18 06/19/18 02:10 02:20 02:20 WBC 10.0 RBC 4.42 Hgb 14.5 Hct 42.8 MCV 96.8 MCH 32.8 H MCHC 33.9 RDW 12.3 RDW Differential 42.8 Plt Count 196 MPV 11.1 Immature Gran % (Auto) 0.200 Neut % (Auto) 51.5 Lymph % (Auto) 39.6 Pershing % (Auto) 6.2 Eos % (Auto) 1.9 Baso % (Auto) 0.6 Absolute Neuts (auto) 5.2 Absolute Lymphs (auto) 3.96 Total Counted Not Reportable Sodium 140 Potassium 3.6 Chloride 109 H Carbon Dioxide 26.0 Anion Gap 5 BUN 10 Creatinine 0.76 Estim Creat Clear Calc 80.58 Est GFR (MDRD) Af Amer 107 Est GFR (MDRD) Non-Af 88 BUN/Creatinine Ratio 13.1 Glucose 106 Calcium 8.4 L CA 125 Antigen CA 125 Ag Serial Mntr Serum , Qual Urine Color Yellow Urine Clarity Sl. Cloudy Urine pH 7.0 Ur Specific [place] 1.015 Urine Protein 30 H Urine Glucose (UA) Normal Urine Ketones Negative Urine Occult Blood 10 H Urine Nitrite Negative Urine Bilirubin Negative Urine Urobilinogen 1 H Ur Leukocyte Esterase 25 H Urine RBC 0-5 SEEN Urine WBC 0-5 SEEN Ur Squamous Epith Cells 25-50 SEEN Urine Bacteria 0 SEEN Urine Mucus 0 SEEN Blood Type Antibody Screen 06/19/18 06/19/18 06/19/18 02:20 10:50 10:50 WBC RBC Hgb Hct MCV MCH MCHC RDW RDW Differential Plt Count MPV Immature Gran % (Auto) Neut % (Auto) Lymph % (Auto) Pershing % (Auto) Eos % (Auto) Baso % (Auto) Absolute Neuts (auto) Absolute Lymphs (auto) Total Counted Sodium Potassium Chloride Carbon Dioxide Anion Gap BUN Creatinine Estim Creat Clear Calc Est GFR (MDRD) Af Amer Est GFR (MDRD) Non-Af BUN/Creatinine Ratio Glucose Calcium CA 125 Antigen Pending CA 125 Ag Serial Mntr Pending Serum , Qual NEGATIVE Urine Color Urine Clarity Urine pH Ur Specific [place] Urine Protein Urine Glucose (UA) Urine Ketones Urine Occult Blood Urine Nitrite Urine Bilirubin Urine Urobilinogen Ur Leukocyte Esterase Urine RBC Urine WBC Ur Squamous Epith Cells Urine Bacteria Urine Mucus Blood Type A POSITIVE Antibody Screen NEGATIVE Assessment/Plan 43-year-old female status post hysterectomy now with complex left adnexal mass. Acute left lower quadrant pain. Patient's been to the emergency room twice in the past 3 days. I discussed with the patient risk benefits and alternatives to diagnostic laparoscopy with possible left oophorectomy. We discussed possible need to conversion to open laparotomy depending on adhesions and size of the mass. We also discussed small chance that this may be a malignancy. If I am highly suspicious of malignancy upon entry with laparoscope would close her and send her to [facility] [facility]. The patient's questions were answered to her satisfaction consent was signed. And she desires to proceed. She will be observed on the floor for pain control and kept n.p.o. until surgery.
--- NOTE | 2018-06-19 14:54 | DCINST_ITS ---
Discharge Diet: No Restrictions - Increase fluid intake for the next 48 hours. Eat lightly for 2-3 days and until you have a bowel movement Discharge Activity: Return to Normal Activity, May Drive - when you are no longer taking pain/narcotic meds., May Shower, May Take a Tub Bath - in 7 days Return to work on:: 07/03/18 May shower in (days): 1 May resume sexual activity in: 1 week Additional Activity Instructions:: Ambulate often the next week after surgery. Nothing in the vagina for 5 days. Call your doctor if your incision/area has: Continuous Slow Oozing, Sudden Increased Bleeding, Increased Pain/ Swelling, Increased Redness, Foul Smelling Discharge Call your doctor if you observe: Fever of 101 or Higher, Inability to have a bowel movement, Uncontrolled pain Cleanse incision/area with: Soap & Water, - - Your incisions have skin glue, they can get wet Instructions: ED Cyst Ovarian Allergies/Adverse Reactions: Allergies amoxicillin trihydrate [From Augmentin] Allergy (Verified 06/19/18 01:58) Hives Gadolinium-MRI Contrast Medium [DYE] Allergy (Verified 06/19/18 01:58) Swelling ibuprofen Allergy (Verified 06/19/18 01:58) Hives Iodinated Contrast- Oral and IV Dye [DYEE] Allergy (Verified 06/19/18 01:58) Swelling ketorolac [From Toradol] Allergy (Verified 06/19/18 01:58) Hives nitrofurantoin macrocrystalline [From Macrodantin] Allergy (Verified 06/19/18 01:58) Hives NSAIDS (Non-Steroidal Anti-Inflamma Allergy (Verified 06/19/18 01:58) Hives potassium clavulanate [From Augmentin] Allergy (Verified 06/19/18 01:58) Hives sulfamethoxazole [From Bactrim] Allergy (Verified 06/19/18 01:58) Hives trimethoprim [From Bactrim] Allergy (Verified 06/19/18 01:58) Hives STERI-STRIPS Allergy (Uncoded 06/19/18 01:58) Other Medications to take at Discharge Sertraline HCl [Zoloft] 100 mg PO DAILY 01/26/18 Clonazepam [Klonopin] 1 mg PO DAILY PRN 06/19/18 Docusate Sodium [Colace] 100 mg PO BID PRN PRN #60 capsule 06/19/18 Ondansetron HCl [Zofran] 8 mg PO Q8 PRN #12 tablet 06/19/18 Oxycodone HCl/Acetaminophen [Percocet 5-325] 1 - 2 tablet PO Q8 PRN 7 Days #28 tablet 06/19/18 The following prescriptions were given: Docusate Sodium [Colace] 100 mg PO BID PRN PRN #60 capsule PRN Reason: Constipation Ondansetron HCl [Zofran] 8 mg PO Q8 PRN #12 tablet PRN Reason: Nausea Oxycodone HCl/Acetaminophen [Percocet 5-325] 1 - 2 tablet PO Q8 PRN 7 Days #28 tablet PRN Reason: Moderate-Severe pain Primary Care Physician: Antonino Billy MD [Primary Care Provider] - Becca Gaines MD [STAFF PHYSICIAN] - Test Results: Test results from this visit will be discussed in further detail at your follow- up appointment, if applicable. Please Follow Up With: Becca Gaines MD - [phone] When: 2 weeks or as needed Please Follow Up With: Lamont Atwood MD - [phone] When: call his office to schedule
--- NOTE | 2018-06-19 14:56 | OP.PCM_ITS ---
Report of Operation Date of Procedure: 06/19/18 Pre-Operative Diagnosis: Acute left lower quadrant pain, complex left ovarian cyst, extensive adhesions of the omentum to the anterior abdominal wall, the bowel and ovary to the pelvic sidewalls and vaginal cuff, adhesions of the mesosalpinx and appendix to the right pelvic sidewall Post-Operative Diagnosis: same Surgery/Procedure Performed:: Laparoscopic left oophorectomy with extensive lysis of adhesions (Dr. Atwood performed lysis of adhesions and appendectomy, see his note) Description of Surgical Findings:: Large amount of adhesions of the omentum to the anterior abdominal wall. Exte nsive adhesions of the colon to both the right and left pelvic sidewalls as well as the vaginal cuff. Left ovary was enlarged with 2 simple appearing cysts. It was adhered to the left pelvic sidewall and the colon. The right ovary was able to be visualized and appeared normal but adhered to the right pelvic sidewall and was somewhat adhesed to the colon. It was not dissected off the pelvic hussein ewall because it appeared normal and I do not want a risk of bleeding and needing to remove it. The appendix was adhered to the right pelvic sidewall and taut with some epiploica adhered over it. Normal-appearing upper abdomen. talent acquisition program manager: Lamont Atwood talent acquisition program manager: Susy Murillo Type of Anesthesia:: General Anesthesiologist: Ligia Hansen Special Medications: none Specimen's removed: left ovary, appendix, ovarian cyst fluid Drains: none Estimated Blood Loss (mL): 30cc Fluids Replaced: 1500 cc LR Description of Procedure: The patient was taken the operating room where she is prepped and draped in dorsal lithotomy position. A sponge stick was placed in the vagina and her bladder was drained. A 5 mm incision was made proximally 3 cm above the umbilicus. Entry here was chosen because of her previous umbilical hernia repair. The skin incisions were all infiltrated with Marcaine before skin incisions were made. A 5 mm blade less trocar and sleeve were advanced directly the peritoneal cavity while tenting up the anterior abdominal wall with towel clips. Intraperitoneal placement was confirmed with the laparoscope. Pneumoperitoneum was created and the underlying abdominal contents were intact. The large amount of adhesions was noted but we are able to find a clear spot on the right and left lateral sidewalls to place 5 mm trochars. Using EndoShears and blunt dissection the omentum was taken down off the anterior abdominal wall. At this point, I cannot even identify the left or right ovary. We manipulated some of the adhesions and bowel gently with some blunt and sharp dissection and were able to visualize the right ovary but did not dissected out. It appeared normal. I then began dissecting the sigmoid colon off the left pelvic sidewall and away from the left ovary. I still could not identify discretely a left ovary or mass. After dissecting for approximately 45 minutes, I did not feel comfortable proceeding with the dissection of the bowel and ask for general surgery intraoperative consultation. Dr. Ramírez then came in and proceeded with his portion of the case. After he dissected down to the cyst, while grasping the cyst and dissecting off the bowel and pelvic sidewall there were 2 separate cyst that ruptured with clear straw-colored fluid. The fluid was collected for cytology. With care the ovary was dissected off the pelvic sidewall. At this point, after another hours worth of dissection the majority of the ovary and ovarian cyst was followed down to the infundibulopelvic ligament. Clamped across the ligament removing as much of the ovary as possible. The tube may have been in this mass, it was not difficult discretely identified. The harmonic scalpel was used to clamp seal and transect the ovary from the pedicle. The pedicle was hemostatic. Dr. Ramírez then performed the appendectomy. At the end of the procedure, the suction manager new product was used to irrigated out any blood and clots and the pedicles were hemostatic. Dr. Ramírez had converted the midline port to a 10 mm and placed another 5mm port approximately [facility] between the umbilicus and the pubic symphysis. The 10 mm port site fascia was closed with PDS suture by Dr. Ramírez. I then released the pneumoperitoneum and release the 5 mm ports. The skin incisions were all closed by me with Monocryl suture in a subcuticular fashion and skin glue was placed over them. The vaginal instruments were removed and a vaginal sweep was completed by me. The patient was awakened and taken to the recovery room in stable condition. Grafts/Implants Used: none - Complications none - Admit VTE Documentation VTE Present on Admission: No VTE Mechan Device Prophylaxis: SCD's VTE Pharm Prophylaxis ordered?: No Reason prophylaxis not ordered:: Procedure Not Indicated
[2018-06-19] MEDS: oxyCODONE 5 MG Tablet 10 MG PO (15:58)
[2018-06-19] MEDS: Sertraline 100 MG Tablet PO (15:58)
--- NOTE | 2018-06-19 21:42 | PCM.OPRPT ---
Report of Operation Date of Procedure: 06/19/18 Pre-Operative Diagnosis: Acute left lower quadrant pain, complex left ovarian cyst, extensive adhesions of the omentum to the anterior abdominal wall, the bowel and ovary to the pelvic sidewalls and vaginal cuff, adhesions of the mesosalpinx and appendix to the right pelvic sidewall Post-Operative Diagnosis: same Surgery/Procedure Performed:: Laparoscopic left oophorectomy with extensive lysis of adhesions (Dr. Atwood performed lysis of adhesions and appendectomy, see his note) web producer: Becca Gaines web producer: Susy Murillo Type of Anesthesia:: General Anesthesiologist: Ligia Hansen Special Medications: none Specimen's removed: left ovary, appendix, ovarian cyst fluid Drains: none Estimated Blood Loss (mL): 30cc Fluids Replaced: 1500 cc LR Description of Procedure: I was consulted intraoperatively by Dr. Gaines for significant adhesions to the left lower quadrant for a patient taken for a left pelvic pain and a larger left ovarian cyst. patient undergone a previous hysterectomy but had 2 ER visits recently for pelvic pain and was noted to have a larger left presumed ovarian cyst for which Dr. Gaines was present for planned left nephrectomy. Sigmoid adhesions to the left lateral sidewall and pelvis were dense enough that the tube and ovarian structures were not visualized. Additionally with the patient's recurring pain we discussed the plan for appendectomy as there were adhesions to the appendix on the right pelvic sidewall and if she had persistent chronic pelvic pain then remove the appendix would prevent diagnostic tumors in the future.. There were 35 and reports are replaced the supraumbilical port was upsized to a 10 mm port and an additional 5 port was placed in the lower midline extensive lysis of adhesions encompassing approximately 45 minutes of dissection time was undertaking freeing the sigmoid colon off the Lateral sidewall and being ill to mobilize and demonstrate the left ovary and larger cystic structure the colon and colonic mesentery and lateral pelvic structures were dissected so that the [place] structures could be addressed by Dr. Gaines. Dissection was performed both sharply locally using Metzenbaum scissors and harmonic scalpel. Once this was completed with good hemostasis the appendix was freed up from its adhesions in the right lower quadrant as was the mesoappendix the mesoappendix was then sequentially divided using a Harmonic scalpel and the appendix transected using the intestinal load Endo SYMONE stapler. The appendix was placed in her back and remove the supraumbilical 10 port site fundus 0 PDS figure 8 sutures placed on the 10 mm site to prevent future herniation. Dr. Gaines completed the case.
[2018-06-20 14:46] LABS: Cancer Antigen 125 2303 10.3 U/mL (0.0-38.1)
[2018-06-22 15:13] LABS: Cytology, Body Fluid / CSF SEE PATHOLOGY REPORT
== END 2018-06-19 16:50 | disposition home or self-care (01) ==
LOC: ED 08:22 → MS2 08:28
PROVIDERS: Admitting Provider Obstetrics & Gynecology; Emergency Provider Emergency Medicine; Family Provider Family Medicine; PCP Family Medicine; Visit Provider Obstetrics & Gynecology
PROC: (CPT 49320; principal; 2018-06-19 10:55)
DX: N83.292 Other ovarian cyst, left side (principal); M79.7 Fibromyalgia; F41.9 Anxiety disorder, unspecified; F32.9 Major depressive disorder, single episode, unspecified; Z79.899 Other long term (current) drug therapy; F17.200 Nicotine dependence, unspecified, uncomplicated; N73.6 Female pelvic peritoneal adhesions (postinfective); M32.9 Systemic lupus erythematosus, unspecified
CPT/HCPCS: 00840; 44970; 58661; 36415; 74176; 76830; 80048; 81001; 84703; 85025; 86304; 86850; 86900; 88108; 88304; 88305; 88313; 93976; 96361; 96374; 96375; 96376; 99218; 99282; 99406; J7120; A4216; G0378; J2405

== ENCOUNTER 2018-08-02 13:34 | Emergency (ER) | payer MEDICAID, SELFPAY ==
[2018-08-02 13:39] VITALS: BP 133/87; PULSE 95; RESP 22; TEMP 37.2; O2SAT 99; BMI 31.8
--- NOTE | 2018-08-02 13:40 | CT_ITS ---
STUDY: CT ABDOMEN AND PELVIS WITH CONTRAST REASON FOR EXAM: Female, 43 years old. Right lower quadrant pain and hematochezia RADIATION DOSAGE (If Supplied By Facility): CTDIvol = ( 14.19 ) mGy, DLP = ( 906.72 ) mGycm TECHNIQUE: Transaxial images were obtained from the dome of the diaphragm to the symphysis pubis without oral contrast. 100CC ml of Isovue 300 contrast was administered. Sagittal and coronal images were reconstructed. Individualized dose optimization techniques were used for this CT. COMPARISON: June 19, 2018 FINDINGS: There is minor atelectasis within the dependent portion of the lungs. The visualized portions of the heart are within normal limits. Liver is prominent and fatty infiltrated without mass or bile duct dilatation. Normal gallbladder and extrahepatic biliary system. Spleen is upper normal size. Normal pancreas. Normal bilateral adrenal glands. Normal right kidney. Normal left kidney. Concentric thickening of the moffett of stomach and narrowing of the lumen of uncertain significance possibly due to gastritis. Mild nonspecific ileus pattern.. Appendix is not visualized status post cholecystectomy. There does appear to be thick-walled terminal ileum with narrowing of the lumen possibly inflammatory Normal abdominal aorta. Normal inferior vena cava. Normal retroperitoneum. Bladder is incompletely distended and diffusely thick-walled uncertain significance. Uterus has been removed surgically. Normal abdominal wall. Normal osseous structures. CT/Abdomen/Pelvis WITH Contrast IMPRESSION: Nonvisualization of the appendix status post appendectomy. There does appear to be mild diffuse thickening of the wall of the terminal ileum and narrowing of the lumen possibly inflammatory. Nonspecific thickening of the moffett of stomach and diffuse ileus possibly inflammatory. Hepatomegaly and fatty infiltration of the liver. Status post hysterectomy Electronically Signed: Juan Luis Church MD at 17:18 EST , Service support ,
--- NOTE | 2018-08-02 13:44 | ED.VISSUMM ---
- ER Visit Summary Date of Service: 08/02/18 Chief Complaint: Right lower quadrant pain History of Present Illness: The patient is a 43 F who is 6 weeks status post hysterectomy, left ovary removal, appendectomy. Today she developed right lower quadrant pain and had bright red blood per rectum. She went to Dr. Ramírez's office and was sent in for evaluation by [facility]. She denies fever or chills. She does report having a colonoscopy in the past but does not remember specific result findings. Physical Examination: Vital signs are unremarkable. Patient sitting upright in bed. She is intermittently tearful. Head neck examination is unremarkable. Heart is regular rate and rhythm. Lung sounds are clear benign abdomen is soft with tenderness in the right lower quadrant. Prior incisions are well-healed. Hypoactive bowel sounds are noted throughout. Test Results: CBC is unremarkable. Chemistry studies normal. Coags normal. Urinalysis unremarkable. Emergency Department Course and Treatment: Patient was given Dilaudid, Zofran, and IV fluids. Vital signs remained stable. CT scan of the abdomen and pelvis with p.o. and IV contrast is obtained. Images were somewhat delayed secondary to the patient needing premedication due to an IV contrast allergy. This will be checked by oncoming physician for final disposition and contact to Dr. Ramírez. Treatment Plan: [] Disposition: Pending CT Impression: Abdominal pain with reported GI bleed This note was generated with [employer] dictation software. It may contain incorrect words, spelling, and punctuation that were not noted in review of the chart prior to signing ED Disposition - Plan for ED Patient: Chief Complaint: Abd Pain Referrals: Antonino Billy MD [Primary Care Provider] -
[2018-08-02] MEDS: Ondansetron 4 MG/2 ML Vial IV ×2 (13:57→18:01)
[2018-08-02] MEDS: HYDROmorphone 1 MG/ML Syringe 0.5 MG IV (13:57)
[2018-08-02 14:12] LABS: Absolute Lymphocyte Count 3.29 X10^3/ul (0.83-4.51); Absolute Neutrophil Count 2.9 X10^3/uL (2.0-7.7); Basophil# 0.04 X10^3/uL; Basophil% 0.6 % (0-1); Eosinophil# 0.16 X10^3/uL; Eosinophils% 2.3 % (0-5); Hematocrit 43.4 % (37-47); Hemoglobin 14.7 g/dl (12.0-15.0); Lymphocyte # 3.29 X10^3/ul (4.0); Mean Corp Hgb Conc 33.9 g/gl (32-36); Mean Corpuscular Volume 94.6 fL (81-99); Monocyte# 0.46 X10^3/uL; Monocyte% 6.7 % (0-10); Neutrophil % 42.3 % (47-70); Platelet Count 221 K/mm3 (150-450); RBC Distribution Width CV 12.6 % (11.6-14.6); RBC Distribution Width SD 43.5 fl (35.1-43.9); Red Blood Count 4.59 M/mm3 (4.2-5.4); White Blood Count 6.9 K/mm3 (4.4-11.0)
[2018-08-02 14:17] LABS: POSITIVE COUNT NO; POSITIVE DIFFERENTIAL NO; POSITIVE MORPHOLOGY NO
[2018-08-02 14:23] LABS: Anion Gap 8 (5-15); BUN 12 mg/dL (7-18); BUN/Creat Ratio 15.6 RATIO (10-20); Calcium,Total 9.3 mg/dL (8.5-10.1); Chloride 110 mmol/L (98-107); Creatinine, Serum 0.77 mg/dL (0.55-1.02); EST Glomerular Filtration Rate 88 mL/min (>60); Est Glom Filt Rate - Afr Amer 106 mL/min (>60); Estimated Creatinine Clearance 79.54 ml/min; Glucose 76 mg/dL (74-106); Potassium 3.7 mmol/L (3.5-5.1); Sodium Level 142 mmol/L (136-145)
[2018-08-02 14:27] LABS: International Normalized Ratio 0.9; Prothrombin Time (Protime)PT. 12.3 SECONDS (11.7-14.9)
[2018-08-02 14:28] LABS: Partial Thromboplast Time 31.5 Seconds (24.1-36.2)
[2018-08-02 14:39] LABS: Mucous, Urine 0 SEEN /hpf (<or=2+); White Blood Cells 0 SEEN /hpf (0-5)
[2018-08-02 14:41] LABS: Color, Urine Yellow (Yellow); Glucose, Dipstick Normal (Normal); Ketone-Dipstick Negative (Negative); Leukocyte Esterase-Dipstick Negative /ul (Negative); Nitrite-Dipstick Negative (Negative); Occult Blood-Urine Negative /ul (Negative); Protein-Dipstick Negative (Negative); Urine Bilirubin Dipstick Negative (Negative); Urine Clarity Sl. Cloudy (Clear); Urine Urobilinogen Normal (Normal)
[2018-08-02 14:55] LABS: Bacteria RARE /hpf (None Seen); Red Blood Cells-Urine 0-5 SEEN /hpf (0-5); Squamous Epithelial Cells - UA 5-10 SEEN /hpf (5-10)
[2018-08-02] MEDS: 0.9% Normal Saline 1,000 ML 150 ML IV (15:20)
[2018-08-02] MEDS: HYDROmorphone 0.5 MG/0.5 ML SYRINGE IV ×2 (15:20→18:01)
[2018-08-02 15:35] VITALS: BP 155/92; PULSE 84; RESP 12; O2SAT 95
[2018-08-02] MEDS: DiphenhydrAMINE 50 MG/ML Syringe 25 MG IV (15:36)
[2018-08-02] MEDS: MethylPREDNISolone 125 MG/2 ML Vial 100 MG IV (15:36)
[2018-08-02 17:57] VITALS: BP 119/80; PULSE 84; RESP 16; O2SAT 95
--- NOTE | 2018-08-02 17:59 | ED.RN ---
ATTEMPTED TO PAGE DR CARR PUT THROUGH TO DR BIRCH
--- NOTE | 2018-08-02 18:02 | ED.RN ---
DR HANNAH ON THE PHONE WITH DR BIRCH
--- NOTE | 2018-08-02 18:49 | DCINST.ED_ITS ---
ED Disposition - Plan for ED Patient: Chief Complaint: Abd Pain Instructions: ED Abdominal Pain Unkn Cause Prescriptions: Hydrocodone Bitart/Apap 5-325 [[place] 5MG-325MG] 1 tab PO Q4H PRN PRN 2 Days #4 tab PRN Reason: Pain Referrals: Antonino Billy MD [Primary Care Provider] - Additional Instructions: Please present to Dr. Ramírez's office for follow-up appointment tomorrow at 9:45 AM
[2018-08-02 19:18] VITALS: BP 125/73; PULSE 83; RESP 16; O2SAT 96
== END 2018-08-02 19:19 | disposition home or self-care (01) ==
LOC: ED 13:54
PROVIDERS: Emergency Provider Emergency Medicine; Family Provider Family Medicine; PCP Family Medicine
DX: R10.31 Right lower quadrant pain (principal); R11.0 Nausea
CPT/HCPCS: 74177; 80048; 81001; 85025; 85610; 85730; 96361; 96374; 96375; 96376; 99285; J7030; J7040; Q9967; J2405

== ENCOUNTER 2018-08-10 20:09 | Emergency (ER) | payer MEDICAID, SELFPAY ==
[2018-08-10 20:10] VITALS: BP 130/81; PULSE 103; RESP 16; TEMP 37.1; O2SAT 97; BMI 28.6
--- NOTE | 2018-08-10 20:42 | ED.RN ---
THIS NURSE CHECKED PT PHONE. PT INFORMED IT IS OK FOR HER TO KEEP HER PHONE LONG SHE IS COOPERATIVE AND IT DOES NOT CAUSE INCREASED STRESS
[2018-08-10 21:31] LABS: Amphetamine Urine VISTA NEGATIVE (<1000 ng/mL); Barbiturate Urine VISTA NEGATIVE (< 200 ng/mL); Benzodiazepine Urine VISTA NEGATIVE (< 200 ng/mL); Cocaine Urine VISTA NEGATIVE (< 300 ng/mL); Ecstacy Urine VISTA NEGATIVE (< 500 ng/mL); Methadone Urine VISTA NEGATIVE (< 300 ng/mL); PCP Urine VISTA NEGATIVE (< 25 ng/mL); THC Urine VISTA NEGATIVE (< 50 ng/mL); Vista UDS pH Range 6
[2018-08-10 21:40] LABS: Absolute Lymphocyte Count 3.22 X10^3/ul (0.83-4.51); Absolute Neutrophil Count 8.9 X10^3/uL (2.0-7.7); Basophil# 0.03 X10^3/uL; Basophil% 0.2 % (0-1); Eosinophil# 0.08 X10^3/uL; Eosinophils% 0.6 % (0-5); Hematocrit 45.1 % (37-47); Hemoglobin 15.4 g/dl (12.0-15.0); Lymphocyte # 3.22 X10^3/ul (4.0); Lymphocyte % 24.7 % (19-41); Mean Corp Hgb Conc 34.1 g/gl (32-36); Mean Corpuscular Hgb 32.5 pg (27.0-32.0); Mean Corpuscular Volume 95.1 fL (81-99); Monocyte# 0.76 X10^3/uL; Monocyte% 5.8 % (0-10); Neutrophil # 8.94 X10^3/uL (2.7-7.7); Neutrophil % 68.5 % (47-70); Platelet Count 227 K/mm3 (150-450); RBC Distribution Width CV 12.6 % (11.6-14.6); RBC Distribution Width SD 43.7 fl (35.1-43.9); Red Blood Count 4.74 M/mm3 (4.2-5.4); White Blood Count 13.1 K/mm3 (4.4-11.0)
[2018-08-10 21:41] LABS: POSITIVE COUNT NO; POSITIVE DIFFERENTIAL NO; POSITIVE MORPHOLOGY NO
[2018-08-10 21:54] LABS: Anion Gap 7 (5-15); BUN 6 mg/dL (7-18); BUN/Creat Ratio 7.2 RATIO (10-20); Calcium,Total 9.1 mg/dL (8.5-10.1); Chloride 108 mmol/L (98-107); Creatinine, Serum 0.83 mg/dL (0.55-1.02); EST Glomerular Filtration Rate 80 mL/min (>60); Est Glom Filt Rate - Afr Amer 97 mL/min (>60); Estimated Creatinine Clearance 77.02 ml/min; Glucose 80 mg/dL (74-106); Potassium 3.3 mmol/L (3.5-5.1); Sodium Level 141 mmol/L (136-145)
[2018-08-10 21:59] LABS: Pregnancy, Serum, hCG Quali. NEGATIVE Negative (0-9 Nonpreg)
[2018-08-10 22:00] VITALS: PULSE 92; RESP 16; O2SAT 100
--- NOTE | 2018-08-10 22:47 | ED.DCSUM_ITS ---
- ER Visit Summary Date of Service: 08/10/18 Chief Complaint: [Depression] History of Present Illness: The patient is a 43 F [presents the emergency department complaint of feeling depressed today due to the fact that she just found out that her cheated on her again for the third time. Patient apparently was on the phone with her while she was driving and made a comment to him that she wanted to kill herself and just called the thermometer production worker and let him know where to find her body. The then called the police who found the patient and brought her to the emergency department for evaluation. Patient states that she has no intention on harming herself and she just made the statement impulsively. Patient does have a history of depression and she is currently on Zoloft. She does see a counselor. Patient has an appointment with her counselor tomorrow morning. Patient has 3 children and states that she wants to be around for them and is adamant that she has no intention on harming herself. Patient is never made an attempt to harm herself in the past. She does have a history of fibromyalgia and depression as well as lupus. Patient denies any visual or auditory hallucinations. She denies any homicidal ideation.] Physical Examination: [HEENT-PERRLA, EOMI. Cranial nerves II through XII grossly intact. TMs clear. Mucous membranes moist. No adenopathy. Cardiovascular-regular rate and rhythm without murmur or ectopy Lungs-clear to auscultation, chest wall stable without crepitus or subcu emphysema Abdomen-normoactive bowel sounds, soft, nontender, no rebound or rigidity, no peritoneal signs. Extremities-intact ?4, normal range of motion, normal pulses, atraumatic] Test Results: [CBC with differential was unremarkable. Chemistry showed a slight depressed potassium at 3.3. Toxicology screen was positive for opiates. Alcohol was negative. HCG was negative.] Emergency Department Course and Treatment: [Patient was evaluated by crisis in the emergency department and they felt patient contract for safety and she has a support system. I do not believe patient is a threat to harm herself at this time.] Treatment Plan: [Discharged home in stable condition. Patient advised to return if she should start feeling suicidal.] Disposition: [Discharged home in stable condition] Impression: [Depression] This note was generated with [employer] software. It may contain incorrect words, spelling, and punctuation that were not noted in review of the chart prior to signing ED Disposition - Plan for ED Patient: Chief Complaint: Suicidal Referrals: Antonino Billy MD [Primary Care Provider] -
--- NOTE | 2018-08-10 22:47 | ED.DEP ---
ED Disposition - Plan for ED Patient: Chief Complaint: Suicidal Instructions: ED Contract, No Harm, ED Depression Referrals: Antonino Billy MD [Primary Care Provider] - 3-5 Days
[2018-08-10 23:04] VITALS: BP 136/81; PULSE 79; RESP 16; O2SAT 99
--- OUTSIDE RECORDS SUMMARY | 2018-09-26 15:32 | XMS RPT_ITS ---
:1975 Author Organization [place] Support Name Relationship Address Phone ROCIO RICCI Unavailable [address] + [address] [place] [address] LYLA, GHADA Unavailable [address] + [place] [address] UE Unavailable Unavailable Unavailable ROCIO RICCI Unavailable [address] + [address] [place] [address] LYLA GHADA Unavailable [address] + [place] [address] UE Unavailable Unavailable Unavailable ROCIO RICCI Unavailable [address] + [address] [place] [address] LYLA GHADA Unavailable [address] + [place] [address] WOOBR Unavailable [address] + [address] [place] [address] GEGEOZIER ROCIO Unavailable [address] + [address] [place] [address] LYLA GHADA Unavailable [address] + [place] [address] WOOBR Unavailable [address] + [address] [place] [address] DELOZIER, ROCIO Unavailable [address] [place] [address] LYLA, GHADA Unavailable [address] + [place] [address] WOOBR Unavailable [address] + [address] [place] [address] ASHLEYIER ROCIO Unavailable [address] + [address] [place] [address] LYLA, GHADA Unavailable [address] + [place] [address] WOOBR Unavailable [address] + [address] [place] [address] DELOZIER, ROCIO Unavailable [address] + [address] [place] [address] LYLA, GHADA Unavailable [address] + [place] [address] WOOBR Unavailable [address] + [address] [place] [address] DELOZIER, ROCIO Unavailable [address] + [address] [place] [address] UE Unavailable Unavailable Unavailable Care Team Providers Name Role Phone CASSIE CLARKE ([facility]) Attending Unavailable PODLOGAR, ELMIRA ([facility]) Attending Unavailable CASSIE CLARKE ([facility]) Attending Unavailable SHELIA YANES Attending Unavailable CASSIE CLARKE ([facility]) Attending Unavailable MEGHNA PRO ([facility]) Attending Unavailable NORA ATWOOD Attending Unavailable SHELIA YANES Referring Unavailable NORA ATWOOD Attending Unavailable Chuck Long Admitting Unavailable Chuck Long Attending Unavailable Tourlas, Gautam Primary Care Unavailable Chuck Long Attending Unavailable Tourlas, Gautam Primary Care Unavailable Tourlas, Gautam Attending Unavailable Tourlas, Gautam Primary Care Unavailable Tourlas, Gautam Attending Unavailable Tourlas, Gautam Primary Care Unavailable Tourlas, Gautam Admitting Unavailable Tourlas, Gautam Attending Unavailable Tourlas, Gautam Primary Care Unavailable Tourlas, Gautam Admitting Unavailable Tourlas, Gautam Attending Unavailable Tourlas, Gautam Primary Care Unavailable Tourlas, Gautam Primary Care Unavailable Sokari, Telemate Admitting Unavailable Sokari, Telemate Attending Unavailable Janessa Prater Attending Unavailable Tourlas, Gautam Primary Care Unavailable Janessa Prater Admitting Unavailable Tourlas, Gautam Attending Unavailable Tourlas, Gautam Primary Care Unavailable Anselmo Marks Attending Unavailable Tourlas, Gautam Primary Care Unavailable BRUNO, NORA T Admitting Unavailable BRUNO, NORA T Attending Unavailable Dhruv Bailey Primary Care Unavailable Charity Curran Attending Unavailable Isai, Kristinus Attending Unavailable Primay Care Physicia, No Primary Care Unavailable Primay Care Physicia, No Primary Care Unavailable Carolina Agosto Attending Unavailable Primay Care Physicia, No Primary Care Unavailable Charity Curran Attending Unavailable Rakel Duenas Attending Unavailable Bursley, Antonino Primary Care Unavailable Bursley, Antonino Primary Care Unavailable Eder, Shelia Admitting Unavailable Eder Shelia Attending Unavailable Dyllanley, Antonino Primary Care Unavailable Curran, Charity Attending Unavailable Wenceslao, Antonino Primary Care Unavailable Ungur, Remus Attending Unavailable PROBLEMS PROBLEMS DATE TYPE CONDITION / CODE ATTENDING STATUS SOURCE 08/03/2018 Active Unspecified BRUNO, Active [place] abdominal pain / [facility] Other R10.9(ICD-10) [place] Repository 08/03/2018 Active Constipation, BRUNO, Active [place] unspecified / [facility] Other K59.00(ICD-10) [facility] Repository 08/02/2018 Unknown R52 - Pain, Curran, Active [place] unspecified / [facility] R52(ICD-10) Hospital Repository 06/19/2018 Unknown G89.18 - Other acute Eder, Active [place] postprocedural pain [facility] / G89.18(ICD-10) Hospital Repository 06/16/2018 Unknown N83.209 - [place], Active [place] Unspecified ovarian [facility] cyst, unspecified Hospital side / Repository N83.209(ICD-10) 04/12/2018 Admitting Unknown / NA Active [facility] Medical diagnosis UNK(Unknown) [facility] Repository 07/27/2018 Unknown R51 - Headache / Curran, Active [place] R51(ICD-10) [facility] Repository 02/07/2018 Unknown S39.92XA - Ungur, Remus Active [place] Unspecified injury Community of lower back, Hospital initial encounter / Repository S39.92XA(ICD-10) PROCEDURES PROCEDURES No Procedure Records FoundRESULTS RESULTS PROGRESS Observed: 09/19/2018 Status: COMPLETED Source: [facility] 11:28 AM [facility] REPOSITORY HNO ID: [id number] Author: Aby Ayala Service: (none) Author Type: Physician Student Services Representative Type: Progress Notes Filed: 09/19/2018 12:45 PM Note Text: 09/19/2018 Patient presents with: bilateral ear pressure, chest and sinus congestion: x 6 days SUBJECTIVE: This is a 43 year old that is here today for Complaint(s) of LIZETH ear pressure and sinus congestion x 6 days. + chest congestion and cough. Cannot tolerate sudafed. + purulent drainage. Denies SOB, wheezing, vomiting, diarrhea. PAST MEDICAL HISTORY Diagnosis Date - Acne Vulgaris: Grade IV Nodulocystic--scarring 08/28/2009 - Adjustment disorder with depressed mood - Allergic rhinitis, cause unspecified 03/02/2006 - Depressive disorder - Fibromyalgia - Myalgia and myositis, unspecified - Other and unspecified hyperlipidemia 2003 - Other chronic cystitis 09/20/2005 - Palpitations 07/19/2005 - Systemic lupus erythematosus (HCC) - Thyroid nodule - Thyroiditis, unspecified 2000 had PP thyroiditis / hyperthyroidism, treated with radioactive iodine, was on Synthroid for a while, but recent TSH's are normal off of meds - Tobacco abuse ALLERGIES Iodinated Contrast- Oral And Iv Dye; Augmentin [Amoxicillin-Pot Clavulanate]; Bactrim [Sulfamethoxazole-Trimethoprim]; Cetirizine; Environmental Allergies [Other]; Ibuprofen; Iv Contrast [Iodine]; Macrodantin [Nitrofurantoin Macrocrystalline]; Nsaids (Non-Steroidal Anti-Inflammatory Drug); Phenazopyridine; Pseudoephedrine Hcl; Pyridium [Phenazopyridine Hcl] MEDICATIONS Current Outpatient Prescriptions: omeprazole (PRILOSEC) 20 mg capsule Take 2 capsules by mouth twice daily. prochlorperazine (COMPAZINE) 10 mg tablet Take 1 tablet by mouth every 6 hours as needed for Nausea/Vomiting. clonazePAM (KLONOPIN) 1 mg tablet Take 1 tablet by mouth at bedtime as needed for Anxiety. triamcinolone acetonide (KENALOG) 0.1 % cream Apply 1 application to affected area three times daily. Apply sparingly to area for rash/itching. (Patient not taking: Reported on 07/26/2018 ) hydrOXYzine pamoate (VISTARIL) 25 mg capsule Take 1 capsule by mouth three times daily as needed. May take 25-50 mg three times a day as needed for itching (Patient not taking: Reported on 07/26/2018 ) EPINEPHrine (EPIPEN) 0.3 mg/0.3 mL auto-injector Inject 0.3 mL intramuscularly as needed. Inject full content of the syringe. (Patient not taking: Reported on 07/26/2018 ) sertraline (ZOLOFT) 100 mg tablet Take 1 tablet by mouth once daily. No current facility-administered medications for this visit. 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 Social History Main Topics Smoking status: Current Every Day Smoker Packs/day: 0.50 Years: 17.00 Types: Cigarettes Smokeless tobacco: Never Used Alcohol use: No Drug use: No Sexual activity: Yes Partners with: Male control/protection: Tubal Ligation, Surgical Comment: hysterectomy Other Topics Concern No BLOOD TRANSFUSIONS No CAFFEINE No OCCUPATIONAL EXPOSURE No HOBBY HAZARD No SLEEP CONCERN No STRESS CONCERN No WEIGHT CONCERN No DIET No BACK CARE No EXERCISE No BIKE HELMET No SEAT BELT No SELF EXAMS No REVIEW OF SYSTEMS See HPI OBJECTIVE: BP 132/82 Pulse 92 Temp 36.3 ?C (97.4 ?F) (Tympanic) Resp 16 Wt 80 kg (176 lb 6.4 oz) LMP 04/07/2012 SpO2 97% BMI 30.28 kg/m? APPEARANCE Well appearing, alert, in no acute distress, well-hydrated, well nourished. EYES PERRLA, conjunctiva and sclera normal. EARS External ears normal, canals clear. TMS normal LIZETH NOSE/SINUS Nares normal. Septum midline. Mucosa erythematous. No drainage. + LIZETH maxillary sinus tenderness. THROAT normal, no erythema NECK Supple, no adenopathy; HEART RRR with normal S1 and S2 LUNG clear to auscultation,No wheezing, rhonchi, rales. ASSESSMENT/PLAN: 1. Acute maxillary sinusitis, recurrence not specified - ICD9: 461.0, ICD10: J01.00 rx printed for doxycycline-discussed possible viral etiology. Start abx in 5-7 days if not improving, sooner if worsening. - The patient should also be given OTC cough and cold meds as needed, warm salt water gargles, throat lozenges and/or OTC throat spray as needed and nasal saline gtts and suction prn for the first 5-7 days of treatment. - Supportive care with plenty of fluids, rest, and analgesia prn. - Follow up in one week if symptoms persist or worsen. - BENZONATATE 100 MG CAPSULE - DOXYCYCLINE MONOHYDRATE 100 MG CAPSULE The patient indicates understanding of these issues and agrees with the plan Reviewed red flags and when to seek care sooner. Aby Ayala PA-C CNOV Observed: 09/19/2018 Status: COMPLETED Source: [place] 11:15 AM [facility] REPOSITORY Office Visit ([facility]) KAT ARITA ([id number]) 1975 F Date Time Provider Department 09/19/18 11:15 AM ABY AYALA) [facility] During your visit today, we recorded the following information about you: Temperature Pulse Respiration Blood pressure 97.4 degrees 92/minute 16/minute 132/82 Weight 80 kg Aby Ayala PA-C 09/19/2018 12:45 PM Signed 09/19/2018 Patient presents with: bilateral ear pressure, chest and sinus congestion: x 6 days SUBJECTIVE: This is a 43 year old that is here today for Complaint(s) of LIZETH ear pressure and sinus congestion x 6 days. + chest congestion and cough. Cannot tolerate sudafed. + purulent drainage. Denies SOB, wheezing, vomiting, diarrhea. PAST MEDICAL HISTORY Diagnosis Date - Acne Vulgaris: Grade IV Nodulocystic--scarring 08/28/2009 - Adjustment disorder with depressed mood - Allergic rhinitis, cause unspecified 03/02/2006 - Depressive disorder - Fibromyalgia - Myalgia and myositis, unspecified - Other and unspecified hyperlipidemia 2003 - Other chronic cystitis 09/20/2005 - Palpitations 07/19/2005 - Systemic lupus erythematosus (HCC) - Thyroid nodule - Thyroiditis, unspecified 2000 had PP thyroiditis / hyperthyroidism, treated with radioactive iodine, was on Synthroid for a while, but recent TSH's are normal off of meds - Tobacco abuse ALLERGIES Iodinated Contrast- Oral And Iv Dye; Augmentin [Amoxicillin-Pot Clavulanate]; Bactrim [Sulfamethoxazole-Trimethoprim]; Cetirizine; Environmental Allergies [Other]; Ibuprofen; Iv Contrast [Iodine]; Macrodantin [Nitrofurantoin Macrocrystalline]; Nsaids (Non-Steroidal Anti-Inflammatory Drug); Phenazopyridine; Pseudoephedrine Hcl; Pyridium [Phenazopyridine Hcl] MEDICATIONS Current Outpatient Prescriptions: omeprazole (PRILOSEC) 20 mg capsule Take 2 capsules by mouth twice daily. prochlorperazine (COMPAZINE) 10 mg tablet Take 1 tablet by mouth every 6 hours as needed for Nausea/Vomiting. clonazePAM (KLONOPIN) 1 mg tablet Take 1 tablet by mouth at bedtime as needed for Anxiety. triamcinolone acetonide (KENALOG) 0.1 % cream Apply 1 application to affected area three times daily. Apply sparingly to area for rash/itching. (Patient not taking: Reported on 07/26/2018 ) hydrOXYzine pamoate (VISTARIL) 25 mg capsule Take 1 capsule by mouth three times daily as needed. May take 25-50 mg three times a day as needed for itching (Patient not taking: Reported on 07/26/2018 ) EPINEPHrine (EPIPEN) 0.3 mg/0.3 mL auto-injector Inject 0.3 mL intramuscularly as needed. Inject full content of the syringe. (Patient not taking: Reported on 07/26/2018 ) sertraline (ZOLOFT) 100 mg tablet Take 1 tablet by mouth once daily. No current facility-administered medications for this visit. 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 Social History Main Topics Smoking status: Current Every Day Smoker Packs/day: 0.50 Years: 17.00 Types: Cigarettes Smokeless tobacco: Never Used Alcohol use: No Drug use: No Sexual activity: Yes Partners with: Male control/protection: Tubal Ligation, Surgical Comment: hysterectomy Other Topics Concern No BLOOD TRANSFUSIONS No CAFFEINE No OCCUPATIONAL EXPOSURE No HOBBY HAZARD No SLEEP CONCERN No STRESS CONCERN No WEIGHT CONCERN No DIET No BACK CARE No EXERCISE No BIKE HELMET No SEAT BELT No SELF EXAMS No REVIEW OF SYSTEMS See HPI OBJECTIVE: BP 132/82 Pulse 92 Temp 36.3 ?C (97.4 ?F) (Tympanic) Resp 16 Wt 80 kg (176 lb 6.4 oz) LMP 04/07/2012 SpO2 97% BMI 30.28 kg/m? APPEARANCE Well appearing, alert, in no acute distress, well- hydrated, well nourished. EYES PERRLA, conjunctiva and sclera normal. EARS External ears normal, canals clear. TMS normal LIZETH NOSE/SINUS Nares normal. Septum midline. Mucosa erythematous. No drainage. + LIZETH maxillary sinus tenderness. THROAT normal, no erythema NECK Supple, no adenopathy; HEART RRR with normal S1 and S2 LUNG clear to auscultation,No wheezing, rhonchi, rales. ASSESSMENT/PLAN: 1. Acute maxillary sinusitis, recurrence not specified - ICD9: 461.0, ICD10: J01.00 rx printed for doxycycline-discussed possible viral etiology. Start abx in 5-7 days if not improving, sooner if worsening. - The patient should also be given OTC cough and cold meds as needed, warm salt water gargles, throat lozenges and/or OTC throat spray as needed and nasal saline gtts and suction prn for the first 5-7 days of treatment. - Supportive care with plenty of fluids, rest, and analgesia prn. - Follow up in one week if symptoms persist or worsen. - BENZONATATE 100 MG CAPSULE - DOXYCYCLINE MONOHYDRATE 100 MG CAPSULE The patient indicates understanding of these issues and agrees with the plan Reviewed red flags and when to seek care sooner. Aby Ayala PA-C Referring Provider: SELF [200] Allergies As of Date: 09/19/2018 Noted Allergy Reaction IODINATED CONTRAST- ORAL AND IV D*02/24/2017 4 - Hives AUGMENTIN (AMOXICILLIN-POT CLAVUL*07/19/2005 4 - Hives BACTRIM (SULFAMETHOXAZOLE-TRIMETH*12/04/2015 4 - Hives 7 - Swelling CETIRIZINE 14 - Other: See Comments Comments: Other reaction(s): Palpitations Environmental allergies [Other] 06/14/2006 Comments: Dust mites, molds IBUPROFEN 12/04/2015 4 - Hives 7 - Swelling IV CONTRAST (IODINE) 12/04/2015 2 - Rash 7 - Swelling MACRODANTIN (NITROFURANTOIN MACRO*07/19/2005 4 - Hives NSAIDS (NON-STEROIDAL ANTI-INFLAM*12/04/2015 4 - Hives Comments: Is able to take Toradol - given after surgery 2017 with no allergic response PHENAZOPYRIDINE 7 - Swelling Comments: Other reaction(s): Hives PSEUDOEPHEDRINE HCL 14 - Other: See Comments Comments: Other reaction(s): Palpitations PYRIDIUM (PHENAZOPYRIDINE HCL) 03/21/2007 2 - Rash Date Reviewed: 09/19/2018 Reviewed by: Trish Fay LPN - Fully Assessed Reason for Visit: bilateral ear pressure, chest and sinus congestion [Other] Cmt: x 6 days Primary Visit Diagnosis:Acute maxillary sinusitis, recurrence not specified [J01.00] Order(s):benzonatate (TESSALON PERLES) 100 mg capsuleTake 1-2 capsules by mouth three times daily as needed for Cough.Disp: 30 capsuleRfl: 0 doxycycline monohydrate (MONODOX) 100 mg capsuleTake 1 capsule by mouth twice daily for 10 days.Disp: 20 capsuleRfl: 0 Prescriptions as of 09/19/2018 Sig: OMEPRAZOLE 20 MG CAPSULE,CHAO* Take 2 capsules by mouth twic* PROCHLORPERAZINE MALEATE 10 M* Take 1 tablet by mouth every * CLONAZEPAM 1 MG TABLET Take 1 tablet by mouth at bed* BENZONATATE 100 MG CAPSULE Take 1-2 capsules by mouth th* DOXYCYCLINE MONOHYDRATE 100 M* Take 1 capsule by mouth twice* TRIAMCINOLONE ACETONIDE 0.1 %* Apply 1 application to affect* Patient not taking: Reported on 07/26/2018 HYDROXYZINE PAMOATE 25 MG CAP* Take 1 capsule by mouth three* Patient not taking: Reported on 07/26/2018 EPINEPHRINE 0.3 MG/0.3 ML INJ* Inject 0.3 mL intramuscularly* Patient not taking: Reported on 07/26/2018 SERTRALINE 100 MG TABLET Take 1 tablet by mouth once d* Problem List As Of Date 09/19/2018 Noted Resolved Severe episode of recurrent major depressive di*INVALID FOR* Generalized anxiety disorder [F41.1] INVALID FOR* ADJUSTMENT DISORDER WITH DEPRESSED MOOD [F43.21] 01/06/2007 Systemic lupus erythematosus (HCC) [M32.9] 12/29/2015 Fibromyalgia [M79.7] Palpitations [R00.2] INVALID FOR*12/29/2015 HYPOTHYROIDISM NOS [E03.9] INVALID FOR*01/06/2007 Other chronic cystitis [N30.20] INVALID FOR*12/29/2015 ALLERGIC RHINITIS NOS [J30.9] INVALID FOR* HYPERLIPIDEMIA NEC/NOS [E78.5] Thyroiditis, unspecified [E06.9] 12/29/2015 More... Acne Vulgaris: Grade IV Nodulocystic--scarring*INVALID FOR*12/29/2015 Scar Condition AND Fibrosis of Skin: acne: face*INVALID FOR* Sebaceous cyst [L72.3] INVALID FOR*12/29/2015 Dermatitis due to Unspec [L25.9] INVALID FOR*12/29/2015 Vitamin D deficiency [E55.9] INVALID FOR*12/29/2015 Tobacco abuse [Z72.0] INVALID FOR* Recurrent major depression in partial remission*INVALID FOR* Marital conflict [Z63.0] INVALID FOR* Panic disorder without agoraphobia [F41.0] INVALID FOR* Hx of Graves' disease [Z86.39] INVALID FOR* Impaired fasting glucose [R73.01] INVALID FOR* Uninodular goiter [E04.1] INVALID FOR* Thyroid nodule [E04.1] INVALID FOR* Abdominal pain [R10.9] INVALID FOR* More... Constipation [K59.00] INVALID FOR* More... Prescriptions ordered this encounter Disp Refills Start End BENZONATATE 100 MG CAPSULE 30 c* 0 09/19/2018 Route: ORAL Sig: Take 1-2 capsules by mouth three times daily as needed for Cough. DOXYCYCLINE MONOHYDRATE 100 MG CAPSU* 20 c* 0 09/19/2018 09/29/2018 Class: Print RX Route: ORAL Sig: Take 1 capsule by mouth twice daily for 10 days. Letter Text Aby Ayala PA-C Urgent Care [address] [facility] [place] [address] Dept: [phone] 09/19/2018 Kat Arita [address] [facility] [address] To Whom it May Concern: This is to certify that Kat Arita was seen at our office for medical care. Sincerely: Aby Ayala PA-C Encounter Status:Closed by ABY AYALA PA-C on 09/19/18 CNCO Observed: 09/04/2018 Status: COMPLETED Source: [facility] 12:00 AM [facility] REPOSITORY Letter Text [facility] [address] [place], [place] [address] 08/31/2018 Kat Samano Lyla [phone] [facility] [address] Dear Ms. Arita: I noted on my schedule today that we had an appointment. I am sorry I missed you. I realize that there are many distractions and busy schedules. Please call ahead of time, if you are unable to make it. If this was because of a miscommunication, please ensure that you speak with one of the schedulers over the phone/in person after each appointment (this is the safest way, since we can't guarantee that you will receive your appointments via mail). If you need to cancel, please call us in advance. Thanks for your understanding, and hope to see you again soon. Sincerely, Dhruv Billy MD (Signed electronically to expedite mailing) EMERGENCY DEPARTMENT Observed: 08/10/2018 Status: F Source: [place] SUMMARY 10:47 PM [facility] Medical Records Department [address] [place] [address] Emergency Department Summary 08/10/18 2245 MR#: [id number] Acct: [id number] Name: KAT ARITA Rep #: [id number] : 1975 43 From: Robin Alex DO PCP: Antonino Billy MD Status: REG ER - ER Visit Summary Date of Service: 08/10/18 Chief Complaint: [Depression] History of Present Illness: The patient is a 43 F [presents the emergency department complaint of feeling depressed today due to the fact that she just found out that her cheated on her again for the third time. Patient apparently was on the phone with her while she was driving and made a comment to him that she wanted to kill herself and just called the burr bench hand and let him know where to find her body. The then called the police who found the patient and brought her to the emergency department for evaluation. Patient states that she has no intention on harming herself and she just made the statement impulsively. Patient does have a history of depression and she is currently on Zoloft. She does see a counselor. Patient has an appointment with her counselor tomorrow morning. Patient has 3 children and states that she wants to be around for them and is adamant that she has no intention on harming herself. Patient is never made an attempt to harm herself in the past. She does have a history of fibromyalgia and depression as well as lupus. Patient denies any visual or auditory hallucinations. She denies any homicidal ideation.] Physical Examination: [HEENT-PERRLA, EOMI. Cranial nerves II through XII grossly intact. TMs clear. Mucous membranes moist. No adenopathy. Cardiovascular-regular rate and rhythm without murmur or ectopy Lungs-clear to auscultation, chest wall stable without crepitus or subcu emphysema Abdomen-normoactive bowel sounds, soft, nontender, no rebound or rigidity, no peritoneal signs. Extremities-intact 4, normal range of motion, normal pulses, atraumatic] Test Results: [CBC with differential was unremarkable. Chemistry showed a slight depressed potassium at 3.3. Toxicology screen was positive for opiates. Alcohol was negative. HCG was negative.] Emergency Department Course and Treatment: [Patient was evaluated by crisis in the emergency department and they felt patient contract for safety and she has a support system. I do not believe patient is a threat to harm herself at this time.] Treatment Plan: [Discharged home in stable condition. Patient advised to return if she should start feeling suicidal.] Disposition: [Discharged home in stable condition] Impression: [Depression] This note was generated with [employer] dictation software. It may contain incorrect words, spelling, and punctuation that were not noted in review of the chart prior to signing ED Disposition - Plan for ED Patient: Chief Complaint: Suicidal Referrals: Antonino Billy MD [Primary Care Provider] - What to do if you have Problems For any increased pain, shortness of breath, bleeding, nausea or vomiting, chest pain, or any unexpected problems, contact your Primary Care Provider. Call [facility] ([phone]) or report to the closest Emergency Room. Call 911 if necessary. 08/10/18 [id number] <Electronically signed by Robin Alex DO> Date Robin Alex DO Cosigner Signature (If Indicated): Date CC: Antonino Billy MD DISCHARGE INSTRUCTION Observed: 08/10/2018 Status: F Source: [place] 10:47 PM [facility] Medical Records Department [address] [place] [address] Discharge Instruction 08/10/182246 MR#: [id number] Acct: [id number] Name: KAT ARITA Rep #: [id number] : 1975 43 From: Robin Alex DO PCP: Antonino Billy MD Status: REG ER ED Disposition - Plan for ED Patient: Chief Complaint: Suicidal Instructions: ED Contract, No Harm, ED Depression Referrals: Antonino Billy MD [Primary Care Provider] - 3-5 Days What to do if you have Problems For any increased pain, shortness of breath, bleeding, nausea or vomiting, chest pain, or any unexpected problems, contact your Primary Care Provider. Call [facility] ([phone]) or report to the closest Emergency Room. Call 911 if necessary. 08/10/182246 <Electronically signed by Robin Alex DO> Date Kristin Isai ROWAN Cosigner Signature (If Indicated): Date CC: Antonino Billy MD CBC W/DIFF, AUTOMATED Collected: 08/10/2018 Status: F Source: [place] 9:20 PM [facility] REPOSITORY TYPE CODE TESTS RESULT OUT OF RANGE REFERENCE UNITS LAB L100.1000 4.4-11.0 K/mm3 High WBC 13.1 LAB L100.1200 4.2-5.4 M/mm3 Normal RBC 4.74 LAB L100.1300 12.0-15.0 g/dl High HGB 15.4 LAB L100.1400 37-47 % Normal HCT 45.1 LAB L100.1500 81-99 fL Normal MCV 95.1 LAB L100.1600 27.0-32.0 pg High MCH 32.5 LAB L100.1700 32-36 g/gl Normal MCHC 34.1 LAB L100.1810 11.6-14.6 % Normal RDW CV 12.6 LAB L100.1820 35.1-43.9 fl Normal RDW SD 43.7 LAB L100.1900 150-450 K/mm3 Normal PLT 227 LAB L100.2000 6.2-12.0 fl Normal MPV 11.0 LAB L100.2100 47-70 % Normal NEUT% 68.5 LAB L100.2200 19-41 % Normal LY% 24.7 LAB L100.2300 0-10 % Normal MONO% 5.8 LAB L100.2400 0-5 % Normal EO% 0.6 LAB L100.2500 0-1 % Normal BASO% 0.2 LAB L100.2550 0.0-0.9 % Normal IM GRAN % 0.200 Result Comment: IG% - Immature Granulocytes (promyelocytes, myelocytes and metamyelocytes) > 1% indicates that a LEFT SHIFT is Present. LAB L100.2620 2.0-7.7 X10 3/uL High Absolute Neut 8.9 LAB L100.2720 0.83-4.51 X10 3/ul Normal Absolute Lymph 3.22 Performed By: #### L100.0100 #### [facility] [address] [place], [place], [id number] BASIC METABOLIC Collected: 08/10/2018 Status: F Source: [place] PROFILE (BMP) 9:20 PM [facility] REPOSITORY TYPE CODE TESTS RESULT OUT OF RANGE REFERENCE UNITS LAB L501.0100 74-106 mg/dL Normal GLU 80 Result Comment: Please note revised GLUCOSE reference range effective 2017. LAB L501.1000 7-18 mg/dL Low BUN 6 LAB L501.1100 0.55-1.02 mg/dL Normal CREAT,SERUM 0.83 Result Comment: The validity of the calculated GFR AND GFRAA in patients over 70 years has not been determined. Clinical correlation is essential. LAB L501.1110 >60 mL/min Normal EST GFR 80 Result Comment: Non- GFR Calc LAB L501.1115 >60 mL/min Normal EST GFR - AA 97 Result Comment: GFR Calc LAB L501.1255 ml/min Normal Estimated CRCL 77.02 LAB L501.1300 10-20 RATIO Low BUN/CRE 7.2 LAB L501.2200 8.5-10 mg/dL Normal .1 CA 9.1 LAB L501.5300 136-14 mmol/L Normal 5 NA 141 LAB L501.5600 3.5-5. mmol/L Low 1 K 3.3 LAB L501.5900 98-107 mmol/L High CL 108 LAB L501.6100 21.0-3 mmol/L Normal 2.0 CO2 26.0 LAB L501.6200 5-15 Normal GAP 7 Performed By: #### L500.2500 #### [facility] [address] [place], [address] ALCOHOL, BLOOD Collected: 08/10/2018 Status: F Source: [place] ([facility])-SERUM 9:20 PM [facility] REPOSITORY TYPE CODE TESTS RESULT OUT OF RANGE REFERENCE UNITS LAB L501.9100 mg/dL Normal SERUM 15.0 ETOH Result Comment: The serum:whole blood ethanol ratio is approximately 1.14 and varies slightly with hematocrit. Medical Alcohol reference interval and critical value in non-tolerant individuals; 50 - 100 Impairment 100 Intoxication 100 - 250 Severe Poisoning 250 - 400 Deep/possible fatal coma Performed By: #### L501.9100 #### [facility] [address] [place], [place], [id number] ,SERUM,HCG QUALI. Collected: Status: F Source: [place] 08/10/2018 9:20 PM [facility] REPOSITORY TYPE CODE TESTS RESULT OUT OF REFERENCE UNITS RANGE LAB L700.7000 0-9 Nonpreg Negative Normal HCGSQUAL NEGATIVE LAB L700.6700 =>Qualitative mIU/mL Normal HCG Qual < 1 triggr Performed By: #### L700.6800 #### [facility] [address] [place], [address] URINE DRUG SCREEN Collected: 08/10/2018 Status: F [facility]: [place] [facility]:00 PM [facility] REPOSITORY TYPE CODE TESTS RESULT OUT OF RANGE REFERENCE UNITS LAB L505.0075 TO BE Normal CONFIRMED Result Comment: CONFIRMATORY TESTING FOR ALL POSITIVE URINE DRUG SCREEN RESULTS WILL ONLY BE SENT OUT UPON PHYSICIAN ORDER. VISTA Urine Drug Screen methods provide only preliminary analytical test results. A more specific alternate chemical method must be used in order to obtain a confirmed analytical result. Gas chromatography/mass spectrometery (GC/MS) is the preferred confirmatory method. Clinical consideration and professional judgement should be applied to any drug of abuse test result, particularly when preliminary positive results are used. URINE TCA TESTING MUST BE ORDERED SEPARATELY. USE TEST MNEMONIC: [facility] LAB L505.5005 VISTA UDS PH 6 Normal LAB L505.5015 <1000 ng/mL AMPHETAMINES Normal NEGATIVE LAB L505.5025 < 200 ng/mL BARBITIURATES Normal NEGATIVE LAB L505.5035 < 200 ng/mL BENZODIAZIPINE Normal NEGATIVE LAB L505.5045 < 300 ng/mL COCAINE Normal NEGATIVE LAB L505.5055 < 500 ng/mL ECSTACY Normal NEGATIVE LAB L505.5065 < 300 ng/mL METHADONE Normal NEGATIVE LAB L505.5075 < 300 High ng/mL OPIATES POSITIVE LAB L505.5085 < 25 ng/mL PCP Normal NEGATIVE LAB L505.5095 < 50 ng/mL THC Normal NEGATIVE Performed By: #### L505.5000 #### [facility] [address] [place], [address] ANES POST Observed: 08/09/2018 Status: COMPLETED Source: [place] 1:47 PM CLIN[facility] OTHER CAMPUS REPOSITORY HNO ID: [id number] Author: Mateo Stafford MD Service: Anesthesiology Author Type: Anesthesiologist Type: Anesthesia PostOp Filed: 08/09/2018 2:25 PM Note Text: POST ANESTHESIA EVALUATION NOTE SERVICE DATE: 08/09/2018 SERVICE TIME: 1300 : 1975 Vitals: 08/09/18 1042 08/09/18 1236 Temp: 37.3 ?C (99.1 ?F) 36.5 ?C (97.7 ?F) 08/09/18 1145 08/09/18 1236 08/09/18 1245 08/09/18 1300 BP: 153/84 105/55 107/59 118/65 08/09/18 1145 08/09/18 1236 08/09/18 1245 08/09/18 1300 Pulse: 86 81 75 77 08/09/18 1145 08/09/18 1236 08/09/18 1245 08/09/18 1300 Resp: 16 16 16 16 08/09/18 1145 08/09/18 1236 08/09/18 1245 08/09/18 1300 SpO2: 97% 94% 95% 99% Validated Vital Signs: Yes POST ANES STATUS: No apparent anesthetic complications. The patient is appropriately hydrated with stable respiratory and cardiovascular status. Patient has safe and adequate airway control. The patient has appropriate pain relief and no significant post operative nausea or vomiting. The patient has achieved baseline mental status. Intra-Operative Events: No Significant Anesthesia Events Further assessment by Anesthesia Service: None Other Remarks: SIGNATURE: Mateo Stafford MD PATIENT NAME: Kat Arita DATE: August 09, 2018 TIME: 2:25 PM PAGER/CONTACT #: PT ED Observed: 08/09/2018 Status: COMPLETED Source: [place] 1:46 PM [facility] REPOSITORY HNO ID: [id number] Author: Rashida (Rn) KITTY Easton Service: (none) Author Type: Registered Nurse Type: Patient Education Filed: 08/09/2018 1:46 PM Note Text: POST OP LEARNING RESPONSE INSTRUCTION PROVIDED TO: Patient and Family member METHOD OF INSTRUCTION: Individual instruction PATIENT / FAMILY RESPONSE: Verbalizes understanding of: POST-OPERATIVE INSTRUCTIONS-Correct actions to take to reduce postoperative complications FOLLOW-UP PLAN: Complete - No need for follow-up SUPPLEMENTAL MATERIAL: None REFERRAL (RECOMMENDATION): None Electronically Signed By: Rashida Easton RN In Department: [facility] ENDOSCOPY NURSING PROG Observed: 08/09/2018 Status: COMPLETED Source: [place] 1:[address] [facility] OTHER CAMPUS REPOSITORY HNO ID: [id number] Author: Makayla (Rn) KITTY Erwin Service: (none) Author Type: Registered Nurse Type: Nursing Progress Note Filed: 08/09/2018 1:10 PM Note Text: Nursing Progress Note Patient Name: Kat Arita Patient Location: [facility] Endo/[place] Endo @1309 Pt laughing and passing flatus without difficulty. Attempted to call report. RN will call back with available. This note was completed by: Makayla Erwin RN SURGICAL PATHOLOGY Observed: 08/09/2018 Status: F Source: [place] 12:45 PM CLINIC OTHER CAMPUS REPOSITORY Specimen originated from [facility] Specimen #: [id number] Submitting Physician: NORA ATWOOD MD FINAL DIAGNOSIS 1. Specimen designated terminal ileum, biopsy (A) - Colonic mucosa with no diagnostic abnormality. 2. Random colon, biopsy (B) - Colonic mucosa with no diagnostic abnormality. 3. Mid esophagus, biopsy (C) - Squamous mucosa with no diagnostic abnormality. 4. Stomach, antrum, biopsy (D) - Gastric antral-type mucosa with mild reactive gastropathy. 5. Esophagogastric junction, biopsy (E) - Squamous mucosa with no diagnostic abnormality. 6. Jejunum, biopsy (F) - Small bowel mucosa with no diagnostic abnormality. SASHA/michelle 08/10/2018 COMMENT 4. No Helicobacter pylori organisms are identified. Chuck Pierce M.D. (Electronic Signature) SPECIMEN SUBMITTED A: TERMINAL ILEUM, BIOPSY B: RANDOM COLON, BIOPSY C: MID ESOPHAGUS, BIOPSY D: ANTRAL, BIOPSY E: ESOPHAGOGASTRIC JUNCTION, BIOPSY F: JEJUNUM, BIOPSY CLINICAL DATA ABDOMINAL PAIN, CONSTIPATION, LMP: HYSTERECTOMY GROSS DESCRIPTION A. Received in formalin is one piece of waite, soft tissue measuring 2.3 x 0.2 x 0.2 cm. Totally submitted in one cassette. B. Received in formalin are two pieces of waite, soft tissue aggregating to 0.7 x 0.3 x 0.2 cm. Totally submitted in one cassette. C. Received in formalin is one piece of waite, soft tissue measuring 0.2 x 0.2 x 0.1 cm. Totally submitted in one cassette. D. Received in formalin is one piece of waite, soft tissue measuring 0.4 x 0.3 x 0.2 cm. Totally submitted in one cassette. E. Received in formalin is one piece of waite, soft tissue measuring 0.3 x 0.3 x 0.2 cm. Totally submitted in one cassette. F. Received in formalin is one piece of waite, soft tissue measuring 0.4 x 0.2 x 0.2 cm. Totally submitted in one cassette. Gross examination performed at [facility], [address] [place] [address] 08/09/2018 7:42:51 PM Date of Report: 08/10/2018 Date of Procedure: 08/09/2018 Date of Receipt: 08/09/2018 Submitted by: NORA ATWOOD MD Location: [facility] [place] [address]. Performed By: #### PATHS #### [employer] [address] [place] [address] [phone] HISTORY PHYSICAL Observed: 08/09/2018 Status: COMPLETED Source: [place] 11:52 AM CLINIC OTHER CAMPUS REPOSITORY HNO ID: [id number] Author: Nora Atwood Service: General Surgery Author Type: Physician Type: HANDP Filed: 08/09/2018 11:52 AM Note Text: HISTORY AND PHYSICAL ? Kat Arita 1975 ? ? REFERRING PHYSICIAN: Shelia Yanes MD ? CHIEF COMPLAINT: Post Op (post op Lysis of adhesions 06/19) ? HPI: The patient is a 43 year old female with a complaint of sudden onset of severe abdominal pain. The patient notes pain in her right lower quadrant. She states the pain has been going on for a few hours. 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 The patient drove here by herself. She was brought in to the office suite promptly when she noted she was having severe pain felt nausea and felt dizzy. The patient was sent down. Vitals were obtained which demonstrated mild tachycardia and a systolic blood pressure of 172. I was rapidly called to evaluate the patient. ? The patient also notes what she describes as a large bloody bowel movement this point it was all blood. She noted nausea and was retching in the office without actually vomiting. The patient states she feels she would feel better if she did vomit. She notes no bulges in her abdominal wall. ? The patient has a past surgical history of 3 sections. She then had an umbilical hernia repair in 2006. She had a tubal ligation then a hysterectomy. Most recently she underwent a left salpingo-oophorectomy for which I was called intraoperatively to assist due to significant adhesions to the tube and ovary structures and I performed an appendectomy at that time. This was on June 19, 2018. ? The patient underwent previous upper and lower endoscopy in December 2015 for nausea and change in bowel habits. Both scopes demonstrated no specific abnormalities. ? The patient's past medical history is significant for lupus, fibromyalgia, recurring severe major depression, generalized anxiety disorder, history of panic attacks, she smokes cigarettes. She denies other substances. ? The patient was seen in gynecology last week with complaints of dysuria. A urinalysis was obtained which demonstrated greater than 100,000 colony-forming units of Escherichia coli. ? The patient is being seen by me today at the request of Dr. Yanes for my opinion and advice regarding sudden onset severe abdominal pain. She was started on Keflex for 10 days ? PAST MEDICAL HISTORY PAST MEDICAL HISTORY Diagnosis Date - Acne Vulgaris: Grade IV Nodulocystic--scarring 08/28/2009 - Adjustment disorder with depressed mood ? - Allergic rhinitis, cause unspecified 03/02/2006 - Depressive disorder ? - Fibromyalgia ? - Myalgia and myositis, unspecified ? - Other and unspecified hyperlipidemia 2003 - Other chronic cystitis 09/20/2005 - Palpitations 07/19/2005 - Systemic lupus erythematosus (HCC) ? - Thyroid nodule ? - Thyroiditis, unspecified 2000 ? had PP thyroiditis / hyperthyroidism, treated with radioactive iodine, was on Synthroid for a while, but recent TSH's are normal off of meds - Tobacco abuse ? ? ? PAST SURGICAL HISTORY PAST SURGICAL HISTORY Procedure Laterality Date - APPENDECTOMY ? 06/19/2018 ? lysis of adhesions and appendectomy [facility] - BIOPSY OF BREAST ? 09/09/2010 ? U/S Core biopsy left breast - DELIVERY ONLY ? ? ? , low cervical - DELIVERY ONLY ? ? ? , low cervical - DELIVERY ONLY ? ? ? , low cervical - SECTION HX ? ? - COLONOSCOP W/ OR W/O [facility] SPEC ? 01/08/16 ? Colonoscopy (MAC) - COLONOSCOPY ? 2014 - DANDC DIAG AND/OR THERAP, NOT OB ? 2012 ? w/ ablation - EGD W/O OR W/BRUSH/WASH ? 01/08/16 ? EGD (MAC) - HYSTERECTOMY HX ? 2014 ? Dr Harris- both ovaries remain - L'SCOPE REM ADNEX W/PART/TOT OOPH/SALP ? left ? LSO< extensive adhesions, may have left some ovarian tissue on colon/sidewall - LIGATE FALLOPIAN TUBE ? ? ? Tubal ligation - REMOVAL ADENOIDS,PRIMARY,<12 Y/O ? ? ? Adenoidectomy - REMOVAL OF TONSILS,<12 Y/O ? ? ? Tonsillectomy - REPAIR UMBILICAL FADUMO,5+Y/O,REDUC ? 2006 ? ? ? CURRENT MEDICATIONS ? Current Outpatient Prescriptions: cephALEXin (KEFLEX) 500 mg capsule Take 1 capsule by mouth three times daily for 10 days. mupirocin (BACTROBAN) 2 % cream Apply 1 application to affected area three times daily for 10 days. Location: outer ear hydrocortisone 1 % cream Apply 1 application to affected area twice daily for 7 days. triamcinolone acetonide (KENALOG) 0.1 % cream Apply 1 application to affected area three times daily. Apply sparingly to area for rash/itching. (Patient not taking: Reported on 07/26/2018 ) hydrOXYzine pamoate (VISTARIL) 25 mg capsule Take 1 capsule by mouth three times daily as needed. May take 25-50 mg three times a day as needed for itching (Patient not taking: Reported on 07/26/2018 ) EPINEPHrine (EPIPEN) 0.3 mg/0.3 mL auto-injector Inject 0.3 mL intramuscularly as needed. Inject full content of the syringe. (Patient not taking: Reported on 07/26/2018 ) predniSONE (DELTASONE) 10 mg tablet Take 5 tablets by mouth once daily. (Patient not taking: Reported on 07/26/2018 ) sertraline (ZOLOFT) 100 mg tablet Take 1 tablet by mouth once daily. clonazePAM (KLONOPIN) 1 mg tablet Take 1 tablet by mouth at bedtime as needed for Anxiety. ? No current facility-administered medications for this visit. ? ALLERGIES: Iodinated Contrast- Oral And Iv Dye; Augmentin [Amoxicillin-Pot Clavulanate]; Bactrim [Sulfamethoxazole-Trimethoprim]; Cetirizine; Environmental Allergies [Other]; Ibuprofen; Iv Contrast [Iodine]; Macrodantin [Nitrofurantoin Macrocrystalline]; Nsaids (Non-Steroidal Anti-Inflammatory Drug); Phenazopyridine; Pseudoephedrine Hcl; Pyridium [Phenazopyridine Hcl] ? PERSONAL HISTORY: SOCIAL HISTORY Social History Marital status: Spouse name: KRISTEN Years of education: 12 Number of children: 3 ? 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 Social History Main Topics Smoking status: Current Every Day Smoker Packs/day: 0.50 Years: 17.00 Types: Cigarettes Smokeless tobacco: Never Used Alcohol use: No Drug use: No Sexual activity: Yes Partners with: Male control/protection: Tubal Ligation, Surgical Comment: hysterectomy ? Other Topics Concern No BLOOD TRANSFUSIONS No CAFFEINE No OCCUPATIONAL EXPOSURE No HOBBY HAZARD No SLEEP CONCERN No STRESS CONCERN No WEIGHT CONCERN No DIET No BACK CARE No EXERCISE No BIKE HELMET No SEAT BELT No SELF EXAMS No ? ? FAMILY HISTORY: FAMILY HISTORY FAMILY HISTORY Problem Relation Age of Onset - Hypertension Father ? - Stroke Father ? - Alcohol/Drug Father ? - Heart Mother ? - Cancer Mother ? ? skin - Coronary Artery Disease Mother ? - Psychiatry Mother ? - Cancer Maternal Grandmother ? ? lung / brain - Breast Cancer Maternal Grandmother ? - Colon Cancer Maternal Grandfather ? - Heart Paternal Grandfather ? - other (MULTIPLE SCLEROSIS) Maternal Aunt ? - Breast Cancer Other ? ? MGM AND MGGM - in their 40's - Colon Cancer Other ? ? MGF - in his 60's ? ? REVIEW OF SYMPTOMS: The review of systems data was entered by the nurse and reviewed by me ? There are no exam notes on file for this visit. ? Review of systems not able to be obtained due to patient distress. ? PHYSICAL EXAMINATION: ? General: The patient is 43 year old female, well nourished, well hydrated in significant distress due to her abdominal discomfort, but does come down with talking and during her examination. The patient is oriented to time, place, and person. ? VITALS: Blood pressure 172/88, pulse 80, temperature 36.8 ?C (98.3 ?F), temperature source Temporal Artery, last menstrual period 04/07/2012, SpO2 99 %. ? HEENT: Normal cephalic, ataumatic, pupils are equally round, sclera are anicteric, mucous membranes are moist, oropharynx is clear. Neck has no masses, asymmetry or lymphadenopathy. Thyroid is unremarkable. ? Respiratory: Clear to auscultation and percussion. Normal respiratory excursion and pattern. ? Cardiac: Examination is regular rate and rhythm. ? Abdominal exam: Soft, tender on the right abdomen with referred pain to the right with palpation of the left. No obvious peritoneal signs, with no palpable masses. No hepatosplenomegaly. No palpable hernias. ? Rectal exam: exam deferred ? Extremities: no clubbing, cyanosis or edema. No adenopathy. ? Other: ? ? LABORATORY VALUES: As Noted ? RADIOLOGIC STUDIES: As Noted ? Assessment IMPRESSION: Abdominal pain-severe, dizziness ? PLAN: At this point we have called EMS to transport the patient was treated Hospital for evaluation. Discussed with the emergency room physician the patient relating the above information and anticipate will be contacted by them later today. ? Diagnoses: (R10.84) Generalized abdominal pain (primary encounter diagnosis) ? My findings have been communicated to Dr. Yanes via shared medical record. Return to Clinic: The patient is instructed to follow-up with me as needed. ? This note was partially generated using [employer] voice recognition system, and there may be some incorrect words, spellings, and punctuation that were not noted in checking the note before saving. ? Nora Atwood MD NURSING PROG Observed: 08/09/2018 Status: COMPLETED Source: [place] 11:42 AM [facility] REPOSITORY HNO ID: [id number] Author: Lise DixonRn) KITTY Kaur Service: Nursing Author Type: Registered Nurse Type: Nursing Progress Note Filed: 08/09/2018 11:42 AM Note Text: 1135 Pt c/o feeling very anxious Dr caraballo updated 1141 Versed 2mg iv Continuous pulse ox on ANES PREOP Observed: 08/09/2018 Status: COMPLETED Source: [place] 11:06 AM [facility] REPOSITORY HNO ID: [id number] Author: Jose Caraballo Service: Anesthesiology Author Type: Anesthesiologist Type: Anesthesia PreOp Filed: 08/09/2018 11:06 AM Note Text: ANESTHESIOLOGY DAY OF SURGERY NOTE SERVICE DATE: 08/09/2018 SERVICE TIME: 11:06 AM : 1975 Procedure(s) (LRB): COLONOSCOPY (N/A) EGD (N/A) Surgeon(s): Nora Atwood Estimated body mass index is 28.67 kg/m? as calculated from the following: Height as of this encounter: 162.6 cm (5' 4). Weight as of this encounter: 75.8 kg (167 lb). Most recent hematocrit and potassium results: Hematocrit 43.2 12/14/2017 Potassium 3.9 12/14/2017 ANES DOS/PREOP NOTE: Vitals: 08/09/18 1042 BP: 126/77 Pulse: 83 Resp: 16 Temp: 37.3 ?C (99.1 ?F) SpO2: 98% Weight: 75.8 kg (167 lb) Height: 162.6 cm (5' 4) ACTIVE PROBLEM LIST Severe Episode of Recurrent Major Depressive Disorder (Hcc) Generalized anxiety disorder Fibromyalgia Allergic Rhinitis, Cause Unspecified Other and Unspecified Hyperlipidemia Scar Condition AND Fibrosis of Skin: acne: face Tobacco Abuse Recurrent Major Depression in Partial Remission (Hcc) Marital Conflict Panic Disorder Without Agoraphobia Hx of Graves' Disease Impaired Fasting Glucose Uninodular Goiter Thyroid Nodule Abdominal Pain Constipation PAST MEDICAL HISTORY Diagnosis Date - Acne Vulgaris: Grade IV Nodulocystic--scarring 08/28/2009 - Adjustment disorder with depressed mood - Allergic rhinitis, cause unspecified 03/02/2006 - Depressive disorder - Fibromyalgia - Myalgia and myositis, unspecified - Other and unspecified hyperlipidemia 2003 - Other chronic cystitis 09/20/2005 - Palpitations 07/19/2005 - Systemic lupus erythematosus (HCC) - Thyroid nodule - Thyroiditis, unspecified 2000 had PP thyroiditis / hyperthyroidism, treated with radioactive iodine, was on Synthroid for a while, but recent TSH's are normal off of meds - Tobacco abuse PAST SURGICAL HISTORY Procedure Laterality Date - APPENDECTOMY 06/19/2018 lysis of adhesions and appendectomy [facility] - BIOPSY OF BREAST 09/09/2010 U/S Core biopsy left breast - DELIVERY ONLY , low cervical - DELIVERY ONLY , low cervical - DELIVERY ONLY , low cervical - SECTION HX - COLONOSCOP W/ OR W/O [facility] SPEC 01/08/16 Colonoscopy (MAC) - COLONOSCOPY 2014 - DANDC DIAG AND/OR THERAP, NOT OB 2013 w/ ablation - EGD W/O OR W/BRUSH/WASH 01/08/16 EGD (MAC) - HYSTERECTOMY HX 2014 Dr Harris- both ovaries remain - L'SCOPE REM ADNEX W/PART/TOT OOPH/SALP left LSO< extensive adhesions, may have left some ovarian tissue on colon/sidewall - LIGATE FALLOPIAN TUBE Tubal ligation - REMOVAL ADENOIDS,PRIMARY,<12 Y/O Adenoidectomy - REMOVAL OF TONSILS,<12 Y/O Tonsillectomy - REPAIR UMBILICAL FADUMO,5+Y/O,REDUC 2006 FAMILY HISTORY Problem Relation Age of Onset - Hypertension Father - Stroke Father - Alcohol/Drug Father - Heart Mother - Cancer Mother skin - Coronary Artery Disease Mother - Psychiatry Mother - Cancer Maternal Grandmother lung / brain - Breast Cancer Maternal Grandmother - Colon Cancer Maternal Grandfather - Heart Paternal Grandfather - other (MULTIPLE SCLEROSIS) Maternal Aunt - Breast Cancer Other MGM AND MGGM - in their 40's - Colon Cancer Other MGF - in his 60's Social History: Social History Substance Use Topics - Smoking status: Current Every Day Smoker Packs/day: 0.50 Years: 17.00 Types: Cigarettes - Smokeless tobacco: Never Used - Alcohol use No No current facility-administered medications on file prior to encounter. Current Outpatient Prescriptions on File Prior to Encounter: clonazePAM (KLONOPIN) 1 mg tablet Take 1 tablet by mouth at bedtime as needed for Anxiety. sertraline (ZOLOFT) 100 mg tablet Take 1 tablet by mouth once daily. EPINEPHrine (EPIPEN) 0.3 mg/0.3 mL auto-injector Inject 0.3 mL intramuscularly as needed. Inject full content of the syringe. (Patient not taking: Reported on 07/26/2018 ) HYDROcodone-acetaminophen (NORCO) 5-325 mg per tablet Take 1 tablet by mouth every 8 hours as needed for up to 7 days. hydrOXYzine pamoate (VISTARIL) 25 mg capsule Take 1 capsule by mouth three times daily as needed. May take 25-50 mg three times a day as needed for itching (Patient not taking: Reported on 07/26/2018 ) prochlorperazine (COMPAZINE) 10 mg tablet Take 1 tablet by mouth every 6 hours as needed for Nausea/Vomiting. triamcinolone acetonide (KENALOG) 0.1 % cream Apply 1 application to affected area three times daily. Apply sparingly to area for rash/itching. (Patient not taking: Reported on 07/26/2018 ) Current Facility-Administered Medications: NaCl 0.9% iv infusion 30 mL/hr INTRAVENOUS CONTINUOUS Nora Atwood Last Rate: 30 mL/hr at 08/09/18 1056 30 mL/hr at 08/09/18 1056 Allergies: ALLERGIES Allergen Reactions - Iodinated Contrast-* Hives - Augmentin [Amoxicil* Hives - Bactrim [Sulfametho* Hives, Swelling - Cetirizine Other: See Comments Other reaction(s): Palpitations - Environmental Aller* Dust mites, molds - Ibuprofen Hives, Swelling - Iv Contrast [Iodine] Rash, Swelling - Macrodantin [Nitrof* Hives - Nsaids (Non-Steroid* Hives Is able to take Toradol - given after surgery 2017 with no allergic response - Phenazopyridine Swelling Other reaction(s): Hives - Pseudoephedrine Hcl Other: See Comments Other reaction(s): Palpitations - Pyridium [Phenazopy* Rash DOS EXAM: Adequate NPO status: Yes Anesthetic risks, benefits, alternatives, personnel and consent discussed: Yes Patient agrees to proceed: Yes Previous Anesthesia: No history of adverse event. Airway Assessment: MP 2; Neck ROM: Full ROM without neurologic symptoms; Airway Evaluation: No significant abnormalities Symptoms of Sleep Apnea: None Dentition: Teeth intact Additional Physical Exam: Lungs: Patient health status unchanged since recent history and physical. See history and physical for exam findings. Cardiac: Patient health status unchanged since recent history and physical. See history and physical for exam findings. Additional Pertinent Findings: N/A Blood Products: Not anticipated for this procedure. Anesthetic Plan: MAC with Sedation Pain Management Plan: Parenteral or Oral ASA Class: 3 Other Medical Problems: None I have interviewed and examined the patient. I have reviewed the medical record and/or the pre-anesthesia evaluation, pertinent labs, and test results. Significant changes in the patient's condition since the History and Physical, not otherwise documented in primary service progress notes: No This contains updated information obtained within 48 hours of Surgery/Procedure. SIGNATURE: Jose Caraballo MD PATIENT NAME: Kat Arita DATE: August 09, 2018 TIME: 11:06 AM CSN: [id number] PT ED Observed: 08/09/2018 Status: COMPLETED Source: [facility] 10:31 AM CLINIC OTHER [facility] REPOSITORY HNO ID: [id number] Author: Lise DixonRn) KITTY Kaur Service: Nursing Author Type: Registered Nurse Type: Patient Education Filed: 08/09/2018 10:31 AM Note Text: PRE OP LEARNING ASSESSMENT PROCEDURE/SURGERY:egd and colonoscopy READINESS TO LEARN COGNITIVE ABILITY: Alert and oriented MOTIVATION TO LEARN: Interested FAMILY SUPPORT: High - Very involved in pt care PATIENT LEARNS BEST BY: Verbal Instruction FACTORS AFFECTING LEARNING: None PHYSICAL LIMITATIONS AFFECTING LEARNING: None Electronically Signed By: Lise Kaur RN In Department: [facility] ENDOSCOPY NURSING PROG Observed: 08/08/2018 Status: COMPLETED Source: [facility] 1:19 PM CLINIC OTHER [facility] REPOSITORY HNO ID: [id number] Author: Naheed DixonRnRory Wallace RN Service: Nursing Author Type: Registered Nurse Type: Nursing Progress Note Filed: 08/08/2018 1:29 PM Note Text: PACC Nurse Progress Note History AND Physical: PACC Visit Date: N/A Original HANDP Date: 08/03/[address] Atwood,office visit ED visit Date: N/A Outside HANDP Scanned Date: N/A Labs Within Last 6 Months: N/A Imaging Within Last 12 Months: CT Scan- 06/16/18 abdomen/pelvis -scanned 07/18/18 Transvaginal 06/19/18- scanned 07/18/18 Cardiac Testing: N/A Last Menstrual Period: LMP Date: 2014 Postmenopausal >1yr: Yes, S/P Hysterectomy: Yes BMI Percentile (PEDS): N/A Risk Assessment: N/A Anesthesia Review: N/A Narrative: HX Lupus,fibromyalgia, panic attacks Pre-op Considerations: N/A Chart Check: IN PROGRESS Needs instructions. Naheed Wallace RN August 08, 2018 1:19 PM PATIENT PREOPERATIVE INSTRUCTIONS No ref. provider found has scheduled you for your procedure at this surgery center: [facility]: [phone] -- [address] [id number]. Please read below carefully for your personalized instructions. Blood Thinning Medications: - Stop NSAIDS (Ibuprofen, Advil, Aleve, Motrin, Celebrex, Mobic, etc.) 7 days before surgery, as directed by your surgeon. - Stop Vitamin E, ALL multi-vitamins, herbals and dietary supplements 7 days before surgery. Dietary Restrictions: - Follow Dr Atwood bowel prep instructions. Pain Medications: Medications: Approved medications to take the morning of surgery with a sip of water: zoloft Klonipin if needed If you start any new medications after today's visit, please contact the surgeon's office. Important Reminders: - Candy, mints, gum and tobacco products are NOT permitted the morning of surgery. - Hearing aids, dentures and glasses may be worn the morning of surgery. - NO jewelry, body piercings, makeup, hairpins or contacts are to be worn the day of surgery. Shower pre op,no creams.lotions, powders dos If you develop symptoms such as a fever, cold, or flu, or have other changes to your health within TWO DAYS of scheduled surgery or the morning of surgery, please contact the surgery center above. Personal Belongings: - Leave ALL valuables and money at home or with family members. For Outpatient Procedures: - YOU MUST HAVE A RESPONSIBLE WHITING CAN WORKER TAKE YOU HOME. A WORKFORCE MANAGEMENT CONSULTANT OR ELECTRIC SERVICEMAN CANNOT BE MADE A RESPONSIBLE WHITING CAN WORKER. - We recommend that a responsible person stays with you overnight to take care of you. - You cannot stay in a hotel alone after outpatient surgery. You will not be permitted to have your surgery, if you do not have someone to take care of you. Arrival Time for Surgery: - The Surgery Center or hospital where you are having surgery will call the afternoon before surgery (or Tuesday for Tuesday surgery) with a scheduled arrival time. - If you have not heard by 4 pm, please contact the surgery center above. Please be aware that emergency situations arise, which may delay or change your surgical time. If this happens, we will notify you as soon as possible and regret any inconvenience. Naheed Wallace RN 1:30 pm PROGRESS Observed: 08/03/2018 Status: COMPLETED Source: [facility] 12:27 PM [facility] REPOSITORY O ID: [id number] Author: Nora Atwood Service: (none) Author Type: Physician Type: Progress Notes Filed: 08/03/2018 12:48 PM Note Text: HISTORY AND PHYSICAL Kat Arita 1975 REFERRING PHYSICIAN: Shelia Yanes MD CHIEF COMPLAINT: Post Op (post op Lysis of adhesions 06/19) HPI: The patient is a 43 year old female with a complaint of sudden onset of severe abdominal pain. The patient notes pain in her right lower quadrant. She states the pain has been going on for a few hours. 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 The patient drove here by herself. She was brought in to the office suite promptly when she noted she was having severe pain felt nausea and felt dizzy. The patient was sent down. Vitals were obtained which demonstrated mild tachycardia and a systolic blood pressure of 172. I was rapidly called to evaluate the patient. The patient also notes what she describes as a large bloody bowel movement this point it was all blood. She noted nausea and was retching in the office without actually vomiting. The patient states she feels she would feel better if she did vomit. She notes no bulges in her abdominal wall. The patient has a past surgical history of 3 sections. She then had an umbilical hernia repair in 2006. She had a tubal ligation then a hysterectomy. Most recently she underwent a left salpingo-oophorectomy for which I was called intraoperatively to assist due to significant adhesions to the tube and ovary structures and I performed an appendectomy at that time. This was on June 19, 2018. The patient underwent previous upper and lower endoscopy in December 2015 for nausea and change in bowel habits. Both scopes demonstrated no specific abnormalities. The patient's past medical history is significant for lupus, fibromyalgia, recurring severe major depression, generalized anxiety disorder, history of panic attacks, she smokes cigarettes. She denies other substances. The patient was seen in gynecology last week with complaints of dysuria. A urinalysis was obtained which demonstrated greater than 100,000 colony-forming units of Escherichia coli. The patient is being seen by yesterday at the request of Dr. Yanes for my opinion and advice regarding sudden onset severe abdominal pain. She was started on Keflex for 10 days for urinary tract infection last week. She was sent by EMS to [facility]. She underwent laboratory testing which demonstrated normal white blood cell count normal chemistry and otherwise normal CBC. CT scan of the abdomen pelvis was obtained which demonstrated no severe acute abnormalities but did suggest gastric thickening and potentially terminal ileal thickening. The patient was comfortable going home with plans to follow-up with me this morning She states the blood in her stool yesterday but no blood since. She denies any diarrhea. She denies fever or chills. The abdominal pain is not as severe as just a but is still present in the right lower quadrant. PAST MEDICAL HISTORY Diagnosis Date - Acne Vulgaris: Grade IV Nodulocystic--scarring 08/28/2009 - Adjustment disorder with depressed mood - Allergic rhinitis, cause unspecified 03/02/2006 - Depressive disorder - Fibromyalgia - Myalgia and myositis, unspecified - Other and unspecified hyperlipidemia 2003 - Other chronic cystitis 09/20/2005 - Palpitations 07/19/2005 - Systemic lupus erythematosus (HCC) - Thyroid nodule - Thyroiditis, unspecified 2000 had PP thyroiditis / hyperthyroidism, treated with radioactive iodine, was on Synthroid for a while, but recent TSH's are normal off of meds - Tobacco abuse PAST SURGICAL HISTORY Procedure Laterality Date - APPENDECTOMY 06/19/2018 lysis of adhesions and appendectomy [facility] - BIOPSY OF BREAST 09/09/2010 U/S Core biopsy left breast - DELIVERY ONLY , low cervical - DELIVERY ONLY , low cervical - DELIVERY ONLY , low cervical - SECTION HX - COLONOSCOP W/ OR W/O [facility] SPEC 01/08/16 Colonoscopy (MAC) - COLONOSCOPY 2014 - [facility] DIAG AND/OR THERAP, NOT OB 2012 w/ ablation - EGD W/O OR W/BRUSH/WASH 01/08/16 EGD (MAC) - HYSTERECTOMY HX 2014 Dr Harris- both ovaries remain - L'SCOPE REM ADNEX W/PART/TOT OOPH/SALP left LSO< extensive adhesions, may have left some ovarian tissue on colon/sidewall - LIGATE FALLOPIAN TUBE Tubal ligation - REMOVAL ADENOIDS,PRIMARY,<12 Y/O Adenoidectomy - REMOVAL OF TONSILS,<12 Y/O Tonsillectomy - REPAIR UMBILICAL FADUMO,5+Y/O,REDUC 2006 Current Outpatient Prescriptions: prochlorperazine (COMPAZINE) 10 mg tablet Take 1 tablet by mouth every 6 hours as needed for Nausea/Vomiting. HYDROcodone-acetaminophen (NORCO) 5-325 mg per tablet Take 1 tablet by mouth every 8 hours as needed for up to 7 days. mupirocin (BACTROBAN) 2 % cream Apply 1 application to affected area three times daily for 10 days. Location: outer ear cephALEXin (KEFLEX) 500 mg capsule Take 1 capsule by mouth three times daily for 10 days. triamcinolone acetonide (KENALOG) 0.1 % cream Apply 1 application to affected area three times daily. Apply sparingly to area for rash/itching. (Patient not taking: Reported on 07/26/2018 ) hydrOXYzine pamoate (VISTARIL) 25 mg capsule Take 1 capsule by mouth three times daily as needed. May take 25-50 mg three times a day as needed for itching (Patient not taking: Reported on 07/26/2018 ) EPINEPHrine (EPIPEN) 0.3 mg/0.3 mL auto-injector Inject 0.3 mL intramuscularly as needed. Inject full content of the syringe. (Patient not taking: Reported on 07/26/2018 ) predniSONE (DELTASONE) 10 mg tablet Take 5 tablets by mouth once daily. (Patient not taking: Reported on 07/26/2018 ) sertraline (ZOLOFT) 100 mg tablet Take 1 tablet by mouth once daily. clonazePAM (KLONOPIN) 1 mg tablet Take 1 tablet by mouth at bedtime as needed for Anxiety. No current facility-administered medications for this visit. 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 Social History Main Topics Smoking status: Current Every Day Smoker Packs/day: 0.50 Years: 17.00 Types: Cigarettes Smokeless tobacco: Never Used Alcohol use: No Drug use: No Sexual activity: Yes Partners with: Male control/protection: Tubal Ligation, Surgical Comment: hysterectomy Other Topics Concern No BLOOD TRANSFUSIONS No CAFFEINE No OCCUPATIONAL EXPOSURE No HOBBY HAZARD No SLEEP CONCERN No STRESS CONCERN No WEIGHT CONCERN No DIET No BACK CARE No EXERCISE No BIKE HELMET No SEAT BELT No SELF EXAMS No FAMILY HISTORY: FAMILY HISTORY Problem Relation Age of Onset - Hypertension Father - Stroke Father - Alcohol/Drug Father - Heart Mother - Cancer Mother skin - Coronary Artery Disease Mother - Psychiatry Mother - Cancer Maternal Grandmother lung / brain - Breast Cancer Maternal Grandmother - Colon Cancer Maternal Grandfather - Heart Paternal Grandfather - other (MULTIPLE SCLEROSIS) Maternal Aunt - Breast Cancer Other MGM AND MGGM - in their 40's - Colon Cancer Other MGF - in his 60's REVIEW OF SYMPTOMS: The review of systems data was entered by the nurse and reviewed by me There are no exam notes on file for this visit. Review of systems not able to be obtained due to patient distress. PHYSICAL EXAMINATION: General: The patient is 43 year old female, well nourished, well hydrated in significant distress due to her abdominal discomfort, but does come down with talking and during her examination. The patient is oriented to time, place, and person. VITALS: Blood pressure 110/70, pulse 80, temperature 36.6 ?C (97.8 ?F), temperature source Temporal Artery, last menstrual period 04/07/2012. HEENT: Normal cephalic, ataumatic, pupils are equally round, sclera are anicteric, mucous membranes are moist, oropharynx is clear. Neck has no masses, asymmetry or lymphadenopathy. Thyroid is unremarkable. Respiratory: Clear to auscultation and percussion. Normal respiratory excursion and pattern. Cardiac: Examination is regular rate and rhythm. Abdominal exam: Soft, tender on the right abdomen with referred pain to the right with palpation of the left. No obvious peritoneal signs, with no palpable masses. No hepatosplenomegaly. No palpable hernias. Rectal exam: exam deferred Extremities: no clubbing, cyanosis or edema. No adenopathy. Other: LABORATORY VALUES: As Noted RADIOLOGIC STUDIES: As Noted Assessment IMPRESSION: Abdominal right lower quadrant-questionable gastric thickening and questionable ileocolic inflammation .oar PLAN: I have prescribed both Compazine for nausea and no workup as that improved her pain when she was given 4 tablets overnight for the emergency department - she noted this improved her pain. PDMP website checked and validated. All prescriptions have been APPROPRIATELY filled. No suspicious activity was identified. 08/03/2018 by Nora Atwood MD I plan to perform upper and lower endoscopy. Given the patient continued nausea I would plan for her to stay on clear liquids and do a relatively slow bowel prep with Ekaterina lax/Gatorade. We will then plan for endoscopy Tuesday at [facility] with monitored anesthetic care. We discussed the risks and benefits of the planned endoscopy. I have informed the patient that complications can occur including failure to complete the endoscopy and perforation. The patient had the opportunity to ask questions concerning the planned endoscopy. My staff has also explained the procedure to the patient in understandable terms and has given the patient printed material concerning the procedure. The patient freely consents to surgery. Diagnoses: (R93.3) Abnormal CT scan, colon (primary encounter diagnosis) (R10.31) RLQ abdominal pain (R11.0) Nausea My findings have been communicated to Dr. Yanes via shared medical record. Return to Clinic: The patient is instructed to follow-up with me as needed. This note was partially generated using [employer] voice recognition system, and there may be some incorrect words, spellings, and punctuation that were not noted in checking the note before saving. Nora Atwood MD CNOV Observed: 08/03/2018 Status: COMPLETED Source: [facility] 9:45 AM CLINIC MA[facility] REPOSITORY Office Visit (GENSWS) KAT ARITA ([id number]) 1975 F Date Time Provider Department 08/03/18 9:45 AM NORA ATWOOD During your visit today, we recorded the following information about you: Temperature Pulse Blood pressure 97.8 degrees 80/minute 110/70 Nora Atwood MD 08/03/2018 12:48 PM Signed HISTORY AND PHYSICAL Kat Arita 1975 REFERRING PHYSICIAN: Shelia Yanes MD CHIEF COMPLAINT: Post Op (post op Lysis of adhesions 06/19) HPI: The patient is a 43 year old female with a complaint of sudden onset of severe abdominal pain. The patient notes pain in her right lower quadrant. She states the pain has been going on for a few hours. 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 The patient drove here by herself. She was brought in to the office suite promptly when she noted she was having severe pain felt nausea and felt dizzy. The patient was sent down. Vitals were obtained which demonstrated mild tachycardia and a systolic blood pressure of 172. I was rapidly called to evaluate the patient. The patient also notes what she describes as a large bloody bowel movement this point it was all blood. She noted nausea and was retching in the office without actually vomiting. The patient states she feels she would feel better if she did vomit. She notes no bulges in her abdominal wall. The patient has a past surgical history of 3 sections. She then had an umbilical hernia repair in 2006. She had a tubal ligation then a hysterectomy. Most recently she underwent a left salpingo- oophorectomy for which I was called intraoperatively to assist due to significant adhesions to the tube and ovary structures and I performed an appendectomy at that time. This was on June 19, 2018. The patient underwent previous upper and lower endoscopy in December 2015 for nausea and change in bowel habits. Both scopes demonstrated no specific abnormalities. The patient's past medical history is significant for lupus, fibromyalgia, recurring severe major depression, generalized anxiety disorder, history of panic attacks, she smokes cigarettes. She denies other substances. The patient was seen in gynecology last week with complaints of dysuria. A urinalysis was obtained which demonstrated greater than 100,000 colony-forming units of Escherichia coli. The patient is being seen by yesterday at the request of Dr. Yanes for my opinion and advice regarding sudden onset severe abdominal pain. She was started on Keflex for 10 days for urinary tract infection last week. She was sent by EMS to [facility]. She underwent laboratory testing which demonstrated normal white blood cell count normal chemistry and otherwise normal CBC. CT scan of the abdomen pelvis was obtained which demonstrated no severe acute abnormalities but did suggest gastric thickening and potentially terminal ileal thickening. The patient was comfortable going home with plans to follow-up with me this morning She states the blood in her stool yesterday but no blood since. She denies any diarrhea. She denies fever or chills. The abdominal pain is not as severe as just a but is still present in the right lower quadrant. PAST MEDICAL HISTORY Diagnosis Date - Acne Vulgaris: Grade IV Nodulocystic--scarring 08/28/2009 - Adjustment disorder with depressed mood - Allergic rhinitis, cause unspecified 03/02/2006 - Depressive disorder - Fibromyalgia - Myalgia and myositis, unspecified - Other and unspecified hyperlipidemia 2003 - Other chronic cystitis 09/20/2005 - Palpitations 07/19/2005 - Systemic lupus erythematosus (HCC) - Thyroid nodule - Thyroiditis, unspecified 2000 had PP thyroiditis / hyperthyroidism, treated with radioactive iodine, was on Synthroid for a while, but recent TSH's are normal off of meds - Tobacco abuse PAST SURGICAL HISTORY Procedure Laterality Date - APPENDECTOMY 06/19/2018 lysis of adhesions and appendectomy [facility] - BIOPSY OF BREAST 09/09/2010 U/S Core biopsy left breast - DELIVERY ONLY , low cervical - DELIVERY ONLY , low cervical - DELIVERY ONLY , low cervical - SECTION HX - COLONOSCOP W/ OR W/O [facility] SPEC 01/08/16 Colonoscopy (MAC) - COLONOSCOPY 2014 - [facility] DIAG AND/OR THERAP, NOT OB 2012 w/ ablation - EGD W/O OR W/BRUSH/WASH 01/08/16 EGD ([facility]) - HYSTERECTOMY HX 2014 Dr Harris- both ovaries remain - L'SCOPE REM ADNEX W/PART/TOT OOPH/SALP left LSO< extensive adhesions, may have left some ovarian tissue on colon/sidewall - LIGATE FALLOPIAN TUBE Tubal ligation - REMOVAL ADENOIDS,PRIMARY,<12 Y/O Adenoidectomy - REMOVAL OF TONSILS,<12 Y/O Tonsillectomy - REPAIR UMBILICAL FADUMO,5+Y/O,REDUC 2006 Current Outpatient Prescriptions: prochlorperazine (COMPAZINE) 10 mg tablet Take 1 tablet by mouth every 6 hours as needed for Nausea/Vomiting. HYDROcodone-acetaminophen (NORCO) 5-325 mg per tablet Take 1 tablet by mouth every 8 hours as needed for up to 7 days. mupirocin (BACTROBAN) 2 % cream Apply 1 application to affected area three times daily for 10 days. Location: outer ear cephALEXin (KEFLEX) 500 mg capsule Take 1 capsule by mouth three times daily for 10 days. triamcinolone acetonide (KENALOG) 0.1 % cream Apply 1 application to affected area three times daily. Apply sparingly to area for rash/itching. (Patient not taking: Reported on 07/26/2018 ) hydrOXYzine pamoate (VISTARIL) 25 mg capsule Take 1 capsule by mouth three times daily as needed. May take 25-50 mg three times a day as needed for itching (Patient not taking: Reported on 07/26/2018 ) EPINEPHrine (EPIPEN) 0.3 mg/0.3 mL auto-injector Inject 0.3 mL intramuscularly as needed. Inject full content of the syringe. (Patient not taking: Reported on 07/26/2018 ) predniSONE (DELTASONE) 10 mg tablet Take 5 tablets by mouth once daily. (Patient not taking: Reported on 07/26/2018 ) sertraline (ZOLOFT) 100 mg tablet Take 1 tablet by mouth once daily. clonazePAM (KLONOPIN) 1 mg tablet Take 1 tablet by mouth at bedtime as needed for Anxiety. No current facility-administered medications for this visit. 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 Social History Main Topics Smoking status: Current Every Day Smoker Packs/day: 0.50 Years: 17.00 Types: Cigarettes Smokeless tobacco: Never Used Alcohol use: No Drug use: No Sexual activity: Yes Partners with: Male control/protection: Tubal Ligation, Surgical Comment: hysterectomy Other Topics Concern No BLOOD TRANSFUSIONS No CAFFEINE No OCCUPATIONAL EXPOSURE No HOBBY HAZARD No SLEEP CONCERN No STRESS CONCERN No WEIGHT CONCERN No DIET No BACK CARE No EXERCISE No BIKE HELMET No SEAT BELT No SELF EXAMS No FAMILY HISTORY: FAMILY HISTORY Problem Relation Age of Onset - Hypertension Father - Stroke Father - Alcohol/Drug Father - Heart Mother - Cancer Mother skin - Coronary Artery Disease Mother - Psychiatry Mother - Cancer Maternal Grandmother lung / brain - Breast Cancer Maternal Grandmother - Colon Cancer Maternal Grandfather - Heart Paternal Grandfather - other (MULTIPLE SCLEROSIS) Maternal Aunt - Breast Cancer Other MGM AND MGGM - in their 40's - Colon Cancer Other MGF - in his 60's REVIEW OF SYMPTOMS: The review of systems data was entered by the nurse and reviewed by me There are no exam notes on file for this visit. Review of systems not able to be obtained due to patient distress. PHYSICAL EXAMINATION: General: The patient is 43 year old female, well nourished, well hydrated in significant distress due to her abdominal discomfort, but does come down with talking and during her examination. The patient is oriented to time, place, and person. VITALS: Blood pressure 110/70, pulse 80, temperature 36.6 ?C (97.8 ?F), temperature source Temporal Artery, last menstrual period 04/07/2012. HEENT: Normal cephalic, ataumatic, pupils are equally round, sclera are anicteric, mucous membranes are moist, oropharynx is clear. Neck has no masses, asymmetry or lymphadenopathy. Thyroid is unremarkable. Respiratory: Clear to auscultation and percussion. Normal respiratory excursion and pattern. Cardiac: Examination is regular rate and rhythm. Abdominal exam: Soft, tender on the right abdomen with referred pain to the right with palpation of the left. No obvious peritoneal signs, with no palpable masses. No hepatosplenomegaly. No palpable hernias. Rectal exam: exam deferred Extremities: no clubbing, cyanosis or edema. No adenopathy. Other: LABORATORY VALUES: As Noted RADIOLOGIC STUDIES: As Noted Assessment IMPRESSION: Abdominal right lower quadrant-questionable gastric thickening and questionable ileocolic inflammation .oar PLAN: I have prescribed both Compazine for nausea and no workup as that improved her pain when she was given 4 tablets overnight for the emergency department - she noted this improved her pain. PDMP website checked and validated. All prescriptions have been APPROPRIATELY filled. No suspicious activity was identified. 08/03/2018 by Nora Atwood MD I plan to perform upper and lower endoscopy. Given the patient continued nausea I would plan for her to stay on clear liquids and do a relatively slow bowel prep with Ekaterina lax/Gatorade. We will then plan for endoscopy Tuesday at [facility] with monitored anesthetic care. We discussed the risks and benefits of the planned endoscopy. I have informed the patient that complications can occur including failure to complete the endoscopy and perforation. The patient had the opportunity to ask questions concerning the planned endoscopy. My staff has also explained the procedure to the patient in understandable terms and has given the patient printed material concerning the procedure. The patient freely consents to surgery. Diagnoses: (R93.3) Abnormal CT scan, colon (primary encounter diagnosis) (R10.31) RLQ abdominal pain (R11.0) Nausea My findings have been communicated to Dr. Yanes via shared medical record. Return to Clinic: The patient is instructed to follow-up with me as needed. This note was partially generated using [employer] voice recognition system, and there may be some incorrect words, spellings, and punctuation that were not noted in checking the note before saving. MD Jeanette Lomeli LPN 08/04/2018 11:18 AM Signed REVIEW OF SYSTEMS: General: The patient NOTES fatigue, denies weight loss, denies weight gain, denies feeling hot, and denies feelings of cold. Eyes: The patient denies glaucoma, denies eye injury/surgery, wears glasses or contacts. Ear/Nose/Throat: The patient NOTES allergies, denies hayfever, denies ear infections, and denies bloody noses. Cardiovascular: The patient denies chest pain, denies heart disease, denies high blood pressure,denies cardiac stent, denies prior heart attack, denies irregular heart beat, denies high cholesterol, denies poor circulation, denies heart failure, other cardiac issues, denies claudication, denies cold feet, denies peripheral arterial stent. Respiratory: The patient denies tuberculosis, denies pneumonia, denies frequent cough, denies pulmonary embolism, denies shortness of breath, and denies coughing up blood. Gastrointestinal: The patient denies difficulty swallowing, NOTES acid reflux, denies ulcers, denies vomiting, denies jaundice/hepatitis, denies gallbladder problems, denies black or tarry stools, denies hemorrhoids, NOTES bleeding from rectum, denies diverticulitis, denies constipation, denies diarrhea, denies loss of stool control, and denies hernias. Kidney/Bladder: The patient denies kidney stones, NOTES urine infections, and denies bloody urine. Skin: The patient denies a history of skin cancer, denies bleeding/changing moles, and denies a history of skin rash. Neurologic: The patient denies a history of epilepsy/convulsions, denies headaches, denies head/spinal injuries, and denies stroke/TIA. Psychiatric: The patient denies psychiatric medications, NOTES depression, and denies voices, denies substance abuse. Endocrine: The patient NOTES thyroid disorders, denies diabetes, and denies hormonal problems. Hematologic: The patient denies a history of bruising, denies bleeding, and denies anemia, denies blood clots. Infections: The patient denies a history of measles and mumps, denies rheumatic fever, and denies sexually transmitted diseases. Musculoskeletal: The patient denies back pain/injury, NOTES back problems, denies sciatica, denies knee/foot trouble, denies arthritis, or denies gout. When was patient's last Mammogram screening? 2017 Last Colonoscopy: None Jeanette Downs LPN Referring Provider: [facility] [[id number]] Allergies As of Date: 08/03/2018 Noted Allergy Reaction IODINATED CONTRAST- ORAL AND IV D*02/24/2017 4 - Hives AUGMENTIN (AMOXICILLIN-POT CLAVUL*07/19/2005 4 - Hives BACTRIM (SULFAMETHOXAZOLE-TRIMETH*12/04/2015 4 - Hives 7 - Swelling CETIRIZINE 14 - Other: See Comments Comments: Other reaction(s): Palpitations Environmental allergies [Other] 06/14/2006 Comments: Dust mites, molds IBUPROFEN 12/04/2015 4 - Hives 7 - Swelling IV CONTRAST (IODINE) 12/04/2015 2 - Rash 7 - Swelling MACRODANTIN (NITROFURANTOIN MACRO*07/19/2005 4 - Hives NSAIDS (NON-STEROIDAL ANTI-INFLAM*12/04/2015 4 - Hives Comments: Is able to take Toradol - given after surgery 2017 with no allergic response PHENAZOPYRIDINE 7 - Swelling Comments: Other reaction(s): Hives PSEUDOEPHEDRINE HCL 14 - Other: See Comments Comments: Other reaction(s): Palpitations PYRIDIUM (PHENAZOPYRIDINE HCL) 03/21/2007 2 - Rash Date Reviewed: 08/03/2018 Reviewed by: Nora Atwood - Fully Assessed Reason for Visit: ER F/U [41] Primary Visit Diagnosis:Abnormal CT scan, colon [R93.3] Other Visit Diagnoses:RLQ abdominal pain [R10.31] Nausea [R11.0] Order(s):prochlorperazine (COMPAZINE) 10 mg tabletTake 1 tablet by mouth every 6 hours as needed for Nausea/Vomiting.Disp: 20 tabletRfl: 0 HYDROcodone-acetaminophen (NORCO) 5-325 mg per tabletTake 1 tablet by mouth every 8 hours as needed for up to 7 days.Disp: 20 tabletRfl: 0 Prescriptions as of 08/03/2018 Sig: PROCHLORPERAZINE MALEATE 10 M* Take 1 tablet by mouth every * HYDROCODONE 5 MG-ACETAMINOPHE* Take 1 tablet by mouth every * MUPIROCIN 2 % TOPICAL CREAM Apply 1 application to affect* CEPHALEXIN 500 MG CAPSULE Take 1 capsule by mouth three* TRIAMCINOLONE ACETONIDE 0.1 %* Apply 1 application to affect* Patient not taking: Reported on 07/26/2018 HYDROXYZINE PAMOATE 25 MG CAP* Take 1 capsule by mouth three* Patient not taking: Reported on 07/26/2018 EPINEPHRINE 0.3 MG/0.3 ML INJ* Inject 0.3 mL intramuscularly* Patient not taking: Reported on 07/26/2018 PREDNISONE 10 MG TABLET Take 5 tablets by mouth once * Patient not taking: Reported on 07/26/2018 SERTRALINE 100 MG TABLET Take 1 tablet by mouth once d* CLONAZEPAM 1 MG TABLET Take 1 tablet by mouth at bed* Problem List As Of Date 08/03/2018 Noted Resolved Severe episode of recurrent major depressive di*INVALID FOR* Generalized anxiety disorder [F41.1] INVALID FOR* ADJUSTMENT DISORDER WITH DEPRESSED MOOD [F43.21] 01/06/2007 Systemic lupus erythematosus (HCC) [M32.9] 12/29/2015 Fibromyalgia [M79.7] Palpitations [R00.2] INVALID FOR*12/29/2015 HYPOTHYROIDISM NOS [E03.9] INVALID FOR*01/06/2007 Other chronic cystitis [N30.20] INVALID FOR*12/29/2015 ALLERGIC RHINITIS NOS [J30.9] INVALID FOR* HYPERLIPIDEMIA NEC/NOS [E78.5] Thyroiditis, unspecified [E06.9] 12/29/2015 More... Acne Vulgaris: Grade IV Nodulocystic--scarring*INVALID FOR*12/29/2015 Scar Condition AND Fibrosis of Skin: acne: face*INVALID FOR* Sebaceous cyst [L72.3] INVALID FOR*12/29/2015 Dermatitis due to Unspec [L25.9] INVALID FOR*12/29/2015 Vitamin D deficiency [E55.9] INVALID FOR*12/29/2015 Tobacco abuse [Z72.0] INVALID FOR* Recurrent major depression in partial remission*INVALID FOR* Marital conflict [Z63.0] INVALID FOR* Panic disorder without agoraphobia [F41.0] INVALID FOR* Hx of Graves' disease [Z86.39] INVALID FOR* Impaired fasting glucose [R73.01] INVALID FOR* Uninodular goiter [E04.1] INVALID FOR* Thyroid nodule [E04.1] INVALID FOR* Abdominal pain [R10.9] INVALID FOR* More... Constipation [K59.00] INVALID FOR* More... Visit Notes: >> Jeanette Downs LPN TueAug 04, 2018 11:17 AM Status: Signed REVIEW OF SYSTEMS: General: The patient NOTES fatigue, denies weight loss, denies weight gain, denies feeling hot, and denies feelings of cold. Eyes: The patient denies glaucoma, denies eye injury/surgery, wears glasses or contacts. Ear/Nose/Throat: The patient NOTES allergies, denies hayfever, denies ear infections, and denies bloody noses. Cardiovascular: The patient denies chest pain, denies heart disease, denies high blood pressure,denies cardiac stent, denies prior heart attack, denies irregular heart beat, denies high cholesterol, denies poor circulation, denies heart failure, other cardiac issues, denies claudication, denies cold feet, denies peripheral arterial stent. Respiratory: The patient denies tuberculosis, denies pneumonia, denies frequent cough, denies pulmonary embolism, denies shortness of breath, and denies coughing up blood. Gastrointestinal: The patient denies difficulty swallowing, NOTES acid reflux, denies ulcers, denies vomiting, denies jaundice/hepatitis, denies gallbladder problems, denies black or tarry stools, denies hemorrhoids, NOTES bleeding from rectum, denies diverticulitis, denies constipation, denies diarrhea, denies loss of stool control, and denies hernias. Kidney/Bladder: The patient denies kidney stones, NOTES urine infections, and denies bloody urine. Skin: The patient denies a history of skin cancer, denies bleeding/changing moles, and denies a history of skin rash. Neurologic: The patient denies a history of epilepsy/convulsions, denies headaches, denies head/spinal injuries, and denies stroke/TIA. Psychiatric: The patient denies psychiatric medications, NOTES depression, and denies voices, denies substance abuse. Endocrine: The patient NOTES thyroid disorders, denies diabetes, and denies hormonal problems. Hematologic: The patient denies a history of bruising, denies bleeding, and denies anemia, denies blood clots. Infections: The patient denies a history of measles and mumps, denies rheumatic fever, and denies sexually transmitted diseases. Musculoskeletal: The patient denies back pain/injury, NOTES back problems, denies sciatica, denies knee/foot trouble, denies arthritis, or denies gout. When was patient's last Mammogram screening? 2017 Last Colonoscopy: None Jeanette Downs LPN Prescriptions ordered this encounter Disp Refills Start End PROCHLORPERAZINE MALEATE 10 MG TABLET 20 t* 0 08/03/2018 Route: ORAL Sig: Take 1 tablet by mouth every 6 hours as needed for Nausea/Vomiting. HYDROCODONE 5 MG-ACETAMINOPHEN 325 M* 20 t* 0 08/03/2018 08/10/2018 Class: Print RX Route: ORAL Sig: Take 1 tablet by mouth every 8 hours as needed for up to 7 days. Follow-up and Disposition History Recorded Encounter Status:Closed by NORA ATWOOD MD on 08/03/18 HOSP Observed: 08/03/2018 Status: COMPLETED Source: [place] 12:00 AM CLINIC OTHER CAMPUS REPOSITORY Patient:Kat Arita MRN: <[id number]> Height:5' 4(1.626 m) Weight:167 lb (75.751 kg) Outpatient Medications as of 08/09/18: clonazePAM (KLONOPIN) 1 mg tablet EPINEPHrine (EPIPEN) 0.3 mg/0.3 mL auto-injector HYDROcodone-acetaminophen (NORCO) 5-325 mg per tablet hydrOXYzine pamoate (VISTARIL) 25 mg capsule prochlorperazine (COMPAZINE) 10 mg tablet sertraline (ZOLOFT) 100 mg tablet triamcinolone acetonide (KENALOG) 0.1 % cream Admission/Clinic Administered Medications as of 08/09/18: NaCl 0.9% iv infusion Problem List: Severe episode of recurrent major depressive disorder (HCC) [F33.2] Generalized anxiety disorder [F41.1] Fibromyalgia [M79.7] Allergic rhinitis, cause unspecified [J30.9] Other and unspecified hyperlipidemia [E78.5] Scar Condition AND Fibrosis of Skin: acne: face [L90.5] Tobacco abuse [Z72.0] Recurrent major depression in partial remission (HCC) [F33.41] Marital conflict [Z63.0] Panic disorder without agoraphobia [F41.0] Hx of Graves' disease [Z86.39] Impaired fasting glucose [R73.01] Uninodular goiter [E04.1] Thyroid nodule [E04.1] Abdominal pain [R10.9] Constipation [K59.00] Allergies: Iodinated Contrast- Oral And IV Dye Augmentin [Amoxicillin-Pot Clavulanate] Bactrim [Sulfamethoxazole-Trimethoprim] Cetirizine Environmental allergies [Other] Ibuprofen IV Contrast [Iodine] Macrodantin [Nitrofurantoin Macrocrystalline] Nsaids (Non-Steroidal Anti-Inflammatory Drug) Phenazopyridine Pseudoephedrine Hcl Pyridium [Phenazopyridine Hcl] Date Verified: 08/09/18 Lab Values No results within the last 30 days for the following basenames: K,HCT Progress Notes ([facility]): Jeanette Downs LPN 08/07/2018 11:18 AM Signed Patient has been identified by name and date of : Yes Pending Prescriptions Disp Refills PEG 3350 240 GRAM-ELECTROLYTES 22.72 GRAM-6.72 G-5.84 G POWDR FOR SOLN 1 Bottle 0 Sig: Take 4,000 mL by mouth one time only for 1 dose. RX INSTRUCTIONS: Patient aware RX will be sent to pharmacy. No need to notify patient. Jeanette Downs LPN Progress Notes (PRE [facility]): Charity Cisneros PA-C 08/04/2018 11:45 AM Signed Pt was called after she missed her PACC appt because she slept through it today. She saw Dr Atwood on 08/02/18 and 08/03/18 and she was in [facility] ED for abdominal pain 08/02/18. Dr Meléndez note from yesterday has a physical exam and full ROS per Nursing note. Vitals stable yesterday. Pt confirmed today on the phone she has had no h/o anesthesia complications. Pt understands all instructions. Dr Meléndez note acceptable for PACC for surgery. Liliana Cisneros PA-C DISCHARGE INSTRUCTION Observed: 08/02/2018 Status: F Source: [place] 6:49 PM [facility] REPOSITORY [facility] Medical Records Department [address] [place] [address] Discharge Instruction 08/02/18 1847 MR#: [id number] Acct: [id number] Name: KAT ARITA Rep #: [id number] : 1975 43 From: Jayce Craig MD PCP: Antonino Billy MD Status: REG ER ED Disposition - Plan for ED Patient: Chief Complaint: Abd Pain Instructions: ED Abdominal Pain Unkn Cause Prescriptions: Hydrocodone Bitart/Apap 5-325 [[place] 5MG-325MG] 1 tab PO Q4H PRN PRN 2 Days #4 tab PRN Reason: Pain Referrals: Antonino Billy MD [Primary Care Provider] - Additional Instructions: Please present to Dr. Ramírez's office for follow-up appointment tomorrow at 9:45 AM What to do if you have Problems For any increased pain, shortness of breath, bleeding, nausea or vomiting, chest pain, or any unexpected problems, contact your Primary Care Provider. Call [facility] ([phone]) or report to the closest Emergency Room. Call 911 if necessary. 08/02/18 1849 <Electronically signed by Jayce Craig MD> Date Jayce Craig MD Cosigner Signature (If Indicated): Date CC: Antonino Billy MD EMERGENCY DEPARTMENT Observed: 08/02/2018 Status: C Source: [place] SUMMARY 6:47 PM [facility] REPOSITORY [facility] Medical Records Department [address] [place] [address] Emergency Department Summary 08/02/18 1344 MR#: [id number] Acct: [id number] Name: KAT ARITA Rep #: [id number] : 1975 43 From: Charity Curran MD PCP: Antonino Billy MD Status: REG ER ADDENDUM by MD Daryl Craig on 08/02/[address] Craig dictating asked to evaluate the patient discussed case Dr. Ramírez after CT scan is available, patient is resting in the bed no distress CT scan shows some inflammation in the right lower quadrant see that report, we did speak with Dr. Ramírez made him aware of the CT images and report, he asked that the patient be instructed that he would be happy to arrange for admission for further management versus seeing her in the office tomorrow, the patient indicated she would prefer outpatient management did not wish to be admitted this time with the plan is to have her to be seen by Dr. Ramírez in the office tomorrow at 945 and return for change in symptoms she will be given [place] 4 tablet prescription and she understands need for follow-up Date Jayce Craig MD cc: Antonino Billy MD * Addendum - ER Visit Summary Date of Service: 08/02/18 Chief Complaint: Right lower quadrant pain History of Present Illness: The patient is a 43 F who is 6 weeks status post hysterectomy, left ovary removal, appendectomy. Today she developed right lower quadrant pain and had bright red blood per rectum. She went to Dr. Ramírez's office and was sent in for evaluation by amanda. She denies fever or chills. She does report having a colonoscopy in the past but does not remember specific result findings. Physical Examination: Vital signs are unremarkable. Patient sitting upright in bed. She is intermittently tearful. Head neck examination is unremarkable. Heart is regular rate and rhythm. Lung sounds are clear benign abdomen is soft with tenderness in the right lower quadrant. Prior incisions are well-healed. Hypoactive bowel sounds are noted throughout. Test Results: CBC is unremarkable. Chemistry studies normal. Coags normal. Urinalysis unremarkable. Emergency Department Course and Treatment: Patient was given Dilaudid, Zofran, and IV fluids. Vital signs remained stable. CT scan of the abdomen and pelvis with p.o. and IV contrast is obtained. Images were somewhat delayed secondary to the patient needing premedication due to an IV contrast allergy. This will be checked by oncoming physician for final disposition and contact to Dr. Ramírez. Treatment Plan: [] Disposition: Pending CT Impression: Abdominal pain with reported GI bleed This note was generated with [employer] software. It may contain incorrect words, spelling, and punctuation that were not noted in review of the chart prior to signing ED Disposition - Plan for ED Patient: Chief Complaint: Abd Pain Referrals: Antonino Billy MD [Primary Care Provider] - What to do if you have Problems For any increased pain, shortness of breath, bleeding, nausea or vomiting, chest pain, or any unexpected problems, contact your Primary Care Provider. Call [facility] ([phone]) or report to the closest Emergency Room. Call 911 if necessary. 08/02/18 1710 <Electronically signed by Charity Curran MD> Date Charity Curran MD Cosigner Signature (If Indicated): Date CC: Antonino Billy MD URINALYSIS, COMPLETE Collected: 08/02/2018 Status: F Source: [place] 2:33 PM [facility] REPOSITORY Order Comment: Order Date: 08/02/18 How was Urine Obtained? CLEAN CATCH TYPE CODE TESTS RESULT OUT OF RANGE REFERENCE UNITS LAB L400.3000 Yellow COLOR Normal Yellow LAB L400.3050 Clear Normal CLARITY Sl. Cloudy LAB L400.3200 Normal mg/dl Normal GLUCOSE, UR Normal LAB L400.3300 Negative mg/dL Normal BILIRUBIN URINE Negative LAB L400.3400 Negative mg/dl Normal KETONE UR Negative LAB L400.3465 1.002-1.030 Normal SP.GR. DIPSTX 1.010 LAB L400.3550 5.0 - 8.0 pH UR Normal 8.0 LAB L400.3600 Negative mg/dl PROT Normal DIPSTX Negative LAB L400.3700 Normal mg/dl Normal UROBILI Normal LAB L400.3750 Negative Normal NITRITE UR Negative LAB L400.3780 Negative /ul Normal OCCULT BLOOD-UR Negative LAB L400.3800 Negative /ul LEUK Normal ESTERASE Negative LAB L400.4050 0-5 /hpf WBC 0 Normal SEEN LAB L400.4100 0-5 /hpf Normal RBC-UA 0-5 SEEN LAB L400.4150 5-10 /hpf SQUAM Normal EPI 5-10 SEEN LAB L400.4300 None Seen /hpf Normal BACTERIA RARE LAB L400.4350 <or=2+ /hpf 0 Normal MUCUS, URINE SEEN Performed By: #### L400.0001 #### [facility] [address] [place], [address] CNOV Observed: 08/02/2018 Status: COMPLETED Source: [place] 2:20 PM [facility] REPOSITORY Office Visit (GENSWS) KAT ARITA ([id number]) 1975 F Date Time Provider Department 08/02/18 2:20 PM NORA ATWOOD During your visit today, we recorded the following information about you: Temperature Pulse Blood pressure 98.3 degrees 80/minute 172/88 Nora Atwood MD 08/02/2018 6:11 PM Signed HISTORY AND PHYSICAL Kat Arita 1975 REFERRING PHYSICIAN: Shelia Yanes MD CHIEF COMPLAINT: Post Op (post op Lysis of adhesions 06/19) HPI: The patient is a 43 year old female with a complaint of sudden onset of severe abdominal pain. The patient notes pain in her right lower quadrant. She states the pain has been going on for a few hours. 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 The patient drove here by herself. She was brought in to the office suite promptly when she noted she was having severe pain felt nausea and felt dizzy. The patient was sent down. Vitals were obtained which demonstrated mild tachycardia and a systolic blood pressure of 172. I was rapidly called to evaluate the patient. The patient also notes what she describes as a large bloody bowel movement this point it was all blood. She noted nausea and was retching in the office without actually vomiting. The patient states she feels she would feel better if she did vomit. She notes no bulges in her abdominal wall. The patient has a past surgical history of 3 sections. She then had an umbilical hernia repair in 2006. She had a tubal ligation then a hysterectomy. Most recently she underwent a left salpingo- oophorectomy for which I was called intraoperatively to assist due to significant adhesions to the tube and ovary structures and I performed an appendectomy at that time. This was on June 19, 2018. The patient underwent previous upper and lower endoscopy in December 2015 for nausea and change in bowel habits. Both scopes demonstrated no specific abnormalities. The patient's past medical history is significant for lupus, fibromyalgia, recurring severe major depression, generalized anxiety disorder, history of panic attacks, she smokes cigarettes. She denies other substances. The patient was seen in gynecology last week with complaints of dysuria. A urinalysis was obtained which demonstrated greater than 100,000 colony-forming units of Escherichia coli. The patient is being seen by me today at the request of Dr. Yanes for my opinion and advice regarding sudden onset severe abdominal pain. She was started on Keflex for 10 days PAST MEDICAL HISTORY Diagnosis Date - Acne Vulgaris: Grade IV Nodulocystic--scarring 08/28/2009 - Adjustment disorder with depressed mood - Allergic rhinitis, cause unspecified 03/02/2006 - Depressive disorder - Fibromyalgia - Myalgia and myositis, unspecified - Other and unspecified hyperlipidemia 2003 - Other chronic cystitis 09/20/2005 - Palpitations 07/19/2005 - Systemic lupus erythematosus (HCC) - Thyroid nodule - Thyroiditis, unspecified 2000 had PP thyroiditis / hyperthyroidism, treated with radioactive iodine, was on Synthroid for a while, but recent TSH's are normal off of meds - Tobacco abuse PAST SURGICAL HISTORY Procedure Laterality Date - APPENDECTOMY 06/19/2018 lysis of adhesions and appendectomy [facility] - BIOPSY OF BREAST 09/09/2010 U/S Core biopsy left breast - DELIVERY ONLY , low cervical - DELIVERY ONLY , low cervical - DELIVERY ONLY , low cervical - SECTION HX - COLONOSCOP W/ OR W/O [facility] SPEC 01/08/16 Colonoscopy ([facility]) - COLONOSCOPY 2014 - DANDC DIAG AND/OR THERAP, NOT OB 2012 w/ ablation - EGD W/O OR W/BRUSH/WASH 01/08/16 EGD ([facility]) - HYSTERECTOMY HX 2014 Dr Harris- both ovaries remain - L'SCOPE REM ADNEX W/PART/TOT OOPH/SALP left LSO< extensive adhesions, may have left some ovarian tissue on colon/sidewall - LIGATE FALLOPIAN TUBE Tubal ligation - REMOVAL ADENOIDS,PRIMARY,<12 Y/O Adenoidectomy - REMOVAL OF TONSILS,<12 Y/O Tonsillectomy - REPAIR UMBILICAL FADUMO,5+Y/O,REDUC 2006 Current Outpatient Prescriptions: cephALEXin (KEFLEX) 500 mg capsule Take 1 capsule by mouth three times daily for 10 days. mupirocin (BACTROBAN) 2 % cream Apply 1 application to affected area three times daily for 10 days. Location: outer ear hydrocortisone 1 % cream Apply 1 application to affected area twice daily for 7 days. triamcinolone acetonide (KENALOG) 0.1 % cream Apply 1 application to affected area three times daily. Apply sparingly to area for rash/itching. (Patient not taking: Reported on 07/26/2018 ) hydrOXYzine pamoate (VISTARIL) 25 mg capsule Take 1 capsule by mouth three times daily as needed. May take 25-50 mg three times a day as needed for itching (Patient not taking: Reported on 07/26/2018 ) EPINEPHrine (EPIPEN) 0.3 mg/0.3 mL auto-injector Inject 0.3 mL intramuscularly as needed. Inject full content of the syringe. (Patient not taking: Reported on 07/26/2018 ) predniSONE (DELTASONE) 10 mg tablet Take 5 tablets by mouth once daily. (Patient not taking: Reported on 07/26/2018 ) sertraline (ZOLOFT) 100 mg tablet Take 1 tablet by mouth once daily. clonazePAM (KLONOPIN) 1 mg tablet Take 1 tablet by mouth at bedtime as needed for Anxiety. No current facility-administered medications for this visit. 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 Social History Main Topics Smoking status: Current Every Day Smoker Packs/day: 0.50 Years: 17.00 Types: Cigarettes Smokeless tobacco: Never Used Alcohol use: No Drug use: No Sexual activity: Yes Partners with: Male control/protection: Tubal Ligation, Surgical Comment: hysterectomy Other Topics Concern No BLOOD TRANSFUSIONS No CAFFEINE No OCCUPATIONAL EXPOSURE No HOBBY HAZARD No SLEEP CONCERN No STRESS CONCERN No WEIGHT CONCERN No DIET No BACK CARE No EXERCISE No BIKE HELMET No SEAT BELT No SELF EXAMS No FAMILY HISTORY: FAMILY HISTORY Problem Relation Age of Onset - Hypertension Father - Stroke Father - Alcohol/Drug Father - Heart Mother - Cancer Mother skin - Coronary Artery Disease Mother - Psychiatry Mother - Cancer Maternal Grandmother lung / brain - Breast Cancer Maternal Grandmother - Colon Cancer Maternal Grandfather - Heart Paternal Grandfather - other (MULTIPLE SCLEROSIS) Maternal Aunt - Breast Cancer Other MGM AND MGGM - in their 40's - Colon Cancer Other MGF - in his 60's REVIEW OF SYMPTOMS: The review of systems data was entered by the nurse and reviewed by me There are no exam notes on file for this visit. Review of systems not able to be obtained due to patient distress. PHYSICAL EXAMINATION: General: The patient is 43 year old female, well nourished, well hydrated in significant distress due to her abdominal discomfort, but does come down with talking and during her examination. The patient is oriented to time, place, and person. VITALS: Blood pressure 172/88, pulse 80, temperature 36.8 ?C (98.3 ?F), temperature source Temporal Artery, last menstrual period 04/07/2012, SpO2 99 %. HEENT: Normal cephalic, ataumatic, pupils are equally round, sclera are anicteric, mucous membranes are moist, oropharynx is clear. Neck has no masses, asymmetry or lymphadenopathy. Thyroid is unremarkable. Respiratory: Clear to auscultation and percussion. Normal respiratory excursion and pattern. Cardiac: Examination is regular rate and rhythm. Abdominal exam: Soft, tender on the right abdomen with referred pain to the right with palpation of the left. No obvious peritoneal signs, with no palpable masses. No hepatosplenomegaly. No palpable hernias. Rectal exam: exam deferred Extremities: no clubbing, cyanosis or edema. No adenopathy. Other: LABORATORY VALUES: As Noted RADIOLOGIC STUDIES: As Noted Assessment IMPRESSION: Abdominal pain-severe, dizziness PLAN: At this point we have called EMS to transport the patient was treated Hospital for evaluation. Discussed with the emergency room physician the patient relating the above information and anticipate will be contacted by them later today. Diagnoses: (R10.84) Generalized abdominal pain (primary encounter diagnosis) My findings have been communicated to Dr. Yanes via shared medical record. Return to Clinic: The patient is instructed to follow-up with me as needed. This note was partially generated using [employer] voice recognition system, and there may be some incorrect words, spellings, and punctuation that were not noted in checking the note before saving. MD Papito Lomeli CEMENT FINISHER 08/02/2018 3:34 PM Signed When patients name was called to come back to exam room pt asked for assistance as she was feeling weak. Pt ambulated to exam room with minimal assistance. Pt reported that she has been having RLQ abd pain for about 1 day with significant increase through this morning. Pt reports that when she had episode of rectal bleeding this morning. Vitals taken as documented. Pain 10/10. Pt became nauseas and vomited small amount. Discussed with pt sending to ER. At pt's request called her mother for possible ride to ER. Stepped out to update doctor but not seen. Returned to exam room and pt reported she may need to lay down. Pt unable to move with assistance of 2 nurses to exam table to lay down. 2nd nurse stayed with pt in chair with feet elevated. Report given to Dr Atwood and he agreed to call 911 and send to ER. 911 called at [phone]. asked PSR to call and advise admin of 911 call. A [place] retrieved AED as precautionary measure. Squad arrived at 13:18 at the same time as pt's mother. Mother updated with pt status at pt's request and left for hospital with pt belongings at the same time as amanda. Referring Provider: SHELIA YANES [[id number]] Allergies As of Date: 08/02/2018 Noted Allergy Reaction IODINATED CONTRAST- ORAL AND IV D*02/24/2017 4 - Hives AUGMENTIN (AMOXICILLIN-POT CLAVUL*07/19/2005 4 - Hives BACTRIM (SULFAMETHOXAZOLE-TRIMETH*12/04/2015 4 - Hives 7 - Swelling CETIRIZINE 14 - Other: See Comments Comments: Other reaction(s): Palpitations Environmental allergies [Other] 06/14/2006 Comments: Dust mites, molds IBUPROFEN 12/04/2015 4 - Hives 7 - Swelling IV CONTRAST (IODINE) 12/04/2015 2 - Rash 7 - Swelling MACRODANTIN (NITROFURANTOIN MACRO*07/19/2005 4 - Hives NSAIDS (NON-STEROIDAL ANTI-INFLAM*12/04/2015 4 - Hives Comments: Is able to take Toradol - given after surgery 2017 with no allergic response PHENAZOPYRIDINE 7 - Swelling Comments: Other reaction(s): Hives PSEUDOEPHEDRINE HCL 14 - Other: See Comments Comments: Other reaction(s): Palpitations PYRIDIUM (PHENAZOPYRIDINE HCL) 03/21/2007 2 - Rash Date Reviewed: 08/02/2018 Reviewed by: Nora Atwood - Fully Assessed Reason for Visit: Post Op [174] Cmt: post op Lysis of adhesions 06/19 Primary Visit Diagnosis:Generalized abdominal pain [R10.84] Prescriptions as of 08/02/2018 Sig: CEPHALEXIN 500 MG CAPSULE Take 1 capsule by mouth three* MUPIROCIN 2 % TOPICAL CREAM Apply 1 application to affect* HYDROCORTISONE 1 % TOPICAL CR* Apply 1 application to affect* TRIAMCINOLONE ACETONIDE 0.1 %* Apply 1 application to affect* Patient not taking: Reported on 07/26/2018 HYDROXYZINE PAMOATE 25 MG CAP* Take 1 capsule by mouth three* Patient not taking: Reported on 07/26/2018 EPINEPHRINE 0.3 MG/0.3 ML INJ* Inject 0.3 mL intramuscularly* Patient not taking: Reported on 07/26/2018 PREDNISONE 10 MG TABLET Take 5 tablets by mouth once * Patient not taking: Reported on 07/26/2018 SERTRALINE 100 MG TABLET Take 1 tablet by mouth once d* CLONAZEPAM 1 MG TABLET Take 1 tablet by mouth at bed* Problem List As Of Date 08/02/2018 Noted Resolved Severe episode of recurrent major depressive di*INVALID FOR* Generalized anxiety disorder [F41.1] INVALID FOR* ADJUSTMENT DISORDER WITH DEPRESSED MOOD [F43.21] 01/06/2007 Systemic lupus erythematosus (HCC) [M32.9] 12/29/2015 Fibromyalgia [M79.7] Palpitations [R00.2] INVALID FOR*12/29/2015 HYPOTHYROIDISM NOS [E03.9] INVALID FOR*01/06/2007 Other chronic cystitis [N30.20] INVALID FOR*12/29/2015 ALLERGIC RHINITIS NOS [J30.9] INVALID FOR* HYPERLIPIDEMIA NEC/NOS [E78.5] Thyroiditis, unspecified [E06.9] 12/29/2015 More... Acne Vulgaris: Grade IV Nodulocystic--scarring*INVALID FOR*12/29/2015 Scar Condition AND Fibrosis of Skin: acne: face*INVALID FOR* Sebaceous cyst [L72.3] INVALID FOR*12/29/2015 Dermatitis due to Unspec [L25.9] INVALID FOR*12/29/2015 Vitamin D deficiency [E55.9] INVALID FOR*12/29/2015 Tobacco abuse [Z72.0] INVALID FOR* Recurrent major depression in partial remission*INVALID FOR* Marital conflict [Z63.0] INVALID FOR* Panic disorder without agoraphobia [F41.0] INVALID FOR* Hx of Graves' disease [Z86.39] INVALID FOR* Impaired fasting glucose [R73.01] INVALID FOR* Uninodular goiter [E04.1] INVALID FOR* Thyroid nodule [E04.1] INVALID FOR* Visit Notes: >> Papito Yassine VALADEZ TueAug 02, 2018 2:18 PM Status: Signed When patients name was called to come back to exam room pt asked for assistance as she was feeling weak. Pt ambulated to exam room with minimal assistance. Pt reported that she has been having RLQ abd pain for about 1 day with significant increase through this morning. Pt reports that when she had episode of rectal bleeding this morning. Vitals taken as documented. Pain 10/10. Pt became nauseas and vomited small amount. Discussed with pt sending to ER. At pt's request called her mother for possible ride to ER. Stepped out to update doctor but not seen. Returned to exam room and pt reported she may need to lay down. Pt unable to move with assistance of 2 nurses to exam table to lay down. 2nd nurse stayed with pt in chair with feet elevated. Report given to Dr Atwood and he agreed to call 911 and send to ER. 911 called at 1312. asked PSR to call and advise admin of 911 call. A Ele retrieved AED as precautionary measure. Amanda arrived at 13:18 at the same time as pt's mother. Mother updated with pt status at pt's request and left for hospital with pt belongings at the same time as amanda. Follow-up and Disposition History Recorded Encounter Status:Closed by NORA ATWOOD MD on 08/02/18 CBC W/DIFF, AUTOMATED Collected: 08/02/2018 Status: F Source: [place] 2:00 PM [facility] REPOSITORY TYPE CODE TESTS RESULT OUT OF RANGE REFERENCE UNITS LAB L100.1000 4.4-11.0 K/mm3 Normal WBC 6.9 LAB L100.1200 4.2-5.4 M/mm3 Normal RBC 4.59 LAB L100.1300 12.0-15.0 g/dl Normal HGB 14.7 LAB L100.1400 37-47 % Normal HCT 43.4 LAB L100.1500 81-99 fL Normal MCV 94.6 LAB L100.1600 27.0-32.0 pg Normal MCH 32.0 LAB L100.1700 32-36 g/gl Normal MCHC 33.9 LAB L100.1810 11.6-14.6 % Normal RDW CV 12.6 LAB L100.1820 35.1-43.9 fl Normal RDW SD 43.5 LAB L100.1900 150-450 K/mm3 Normal PLT 221 LAB L100.2000 6.2-12.0 fl Normal MPV 11.0 LAB L100.2100 47-70 % Low NEUT% 42.3 LAB L100.2200 19-41 % High LY% 48.0 LAB L100.2300 0-10 % Normal MONO% 6.7 LAB L100.2400 0-5 % Normal EO% 2.3 LAB L100.2500 0-1 % Normal BASO% 0.6 LAB L100.2550 0.0-0.9 % Normal IM GRAN % 0.100 Result Comment: IG% - Immature Granulocytes (promyelocytes, myelocytes and metamyelocytes) > 1% indicates that a LEFT SHIFT is Present. LAB L100.2620 2.0-7.7 X10 3/uL Normal Absolute Neut 2.9 LAB L100.2720 0.83-4.51 X10 3/ul Normal Absolute Lymph 3.29 Performed By: #### L100.0100 #### [facility] [address] [place], [place], [id number] BASIC METABOLIC Collected: 08/02/2018 Status: F Source: [place] PROFILE (BMP) 2:00 PM [facility] REPOSITORY TYPE CODE TESTS RESULT OUT OF RANGE REFERENCE UNITS LAB L501.0100 74-106 mg/dL Normal GLU 76 Result Comment: Please note revised GLUCOSE reference range effective 2017. LAB L501.1000 7-18 mg/dL Normal BUN 12 LAB L501.1100 0.55-1.02 mg/dL Normal CREAT,SERUM 0.77 Result Comment: The validity of the calculated GFR AND GFRAA in patients over 70 years has not been determined. Clinical correlation is essential. LAB L501.1110 >60 mL/min Normal EST GFR 88 Result Comment: Non- GFR Calc LAB L501.1115 >60 mL/min Normal EST GFR - AA 106 Result Comment: GFR Calc LAB L501.1255 ml/min Normal Estimated CRCL 79.54 LAB L501.1300 10-20 RATIO Normal BUN/CRE 15.6 LAB L501.2200 8.5-10 mg/dL Normal .1 CA 9.3 LAB L501.5300 136-14 mmol/L Normal 5 NA 142 LAB L501.5600 3.5-5. mmol/L Normal 1 K 3.7 LAB L501.5900 98-107 mmol/L High CL 110 LAB L501.6100 21.0-3 mmol/L Normal 2.0 CO2 24.0 LAB L501.6200 5-15 Normal GAP 8 Performed By: #### L500.2500 #### [facility] [address] [place], [place], [id number] PROTHROMBIN TIME W/INR Collected: 08/02/2018 Status: F Source: [place] 2:00 PM [facility] REPOSITORY TYPE CODE TESTS RESULT OUT OF RANGE REFERENCE UNITS LAB L300.4150 11.7-14.9 SECONDS Normal PROTIME 12.3 LAB L300.4200 Normal INR 0.9 Performed By: #### L300.3900, L300.4310 #### [facility] [address] [place], [address] PARTIAL THROMBOPLAST Collected: 08/02/2018 Status: F Source: [place] TIME 2:00 PM [facility] REPOSITORY TYPE CODE TESTS RESULT OUT OF RANGE REFERENCE UNITS LAB L300.4310 24.1-36.2 Seconds Normal PTT 31.5 Performed By: #### L300.3900, L300.4310 #### [facility] [address] [place], [address] ABDOMEN/PELVIS WITH Observed: 08/02/2018 Status: F Source: [place] CONTRAST 1:42 PM [facility] REPOSITORY [facility] Services [address] [place] [address] Abdomen/Pelvis WITH Contrast MR#: [id number] Acct: [id number] Name: KAT ARITA Jazmyne Rep #: [id number] : 1975 F 43 From: Juan Luis Church MD PCP: Antonino Billy MD Status: REG ER Study: Abdomen/Pelvis WITH Contrast Date of Exam: 08/02/18 Exam# [id number] Ordering Dr: Charity Curran MD STUDY: CT ABDOMEN AND PELVIS WITH CONTRAST REASON FOR EXAM: Female, 43 years old. Right lower quadrant pain and hematochezia RADIATION DOSAGE (If Supplied By Facility): CTDIvol = ( 14.19 ) mGy, DLP = ( 906.72 ) mGycm TECHNIQUE: Transaxial images were obtained from the dome of the diaphragm to the symphysis pubis without oral contrast. 100CC ml of Isovue 300 contrast was administered. Sagittal and coronal images were reconstructed. Individualized dose optimization techniques were used for this CT. COMPARISON: June 19, 2018 FINDINGS: There is minor atelectasis within the dependent portion of the lungs. The visualized portions of the heart are within normal limits. Liver is prominent and fatty infiltrated without mass or bile duct dilatation. Normal gallbladder and extrahepatic biliary system. Spleen is upper normal size. Normal pancreas. Normal bilateral adrenal glands. Normal right kidney. Normal left kidney. Concentric thickening of the moffett of stomach and narrowing of the lumen of uncertain significance possibly due to gastritis. Mild nonspecific ileus pattern.. Appendix is not visualized status post cholecystectomy. There does appear to be thick-walled terminal ileum with narrowing of the lumen possibly inflammatory Normal abdominal aorta. Normal inferior vena cava. Normal retroperitoneum. Bladder is incompletely distended and diffusely thick-walled uncertain significance. Uterus has been removed surgically. Normal abdominal wall. Normal osseous structures. CT/Abdomen/Pelvis WITH Contrast IMPRESSION: Nonvisualization of the appendix status post appendectomy. There does appear to be mild diffuse thickening of the wall of the terminal ileum and narrowing of the lumen possibly inflammatory. Nonspecific thickening of the moffett of stomach and diffuse ileus possibly inflammatory. Hepatomegaly and fatty infiltration of the liver. Status post hysterectomy Electronically Signed: Juan Luis Church MD at 17:18 EST , Service support , CC: Antonino Billy MD; Charity Curran MD Supervisor In Charge: Signed PROGRESS Observed: 08/02/2018 Status: COMPLETED Source: [place] 1:07 PM [facility] REPOSITORY HNO ID: [id number] Author: Nora Atwood Service: (none) Author Type: Physician Type: Progress Notes Filed: 08/02/2018 6:11 PM Note Text: HISTORY AND PHYSICAL Kat Arita 1975 REFERRING PHYSICIAN: Shelia Yanes MD CHIEF COMPLAINT: Post Op (post op Lysis of adhesions 06/19) HPI: The patient is a 43 year old female with a complaint of sudden onset of severe abdominal pain. The patient notes pain in her right lower quadrant. She states the pain has been going on for a few hours. 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 The patient drove here by herself. She was brought in to the office suite promptly when she noted she was having severe pain felt nausea and felt dizzy. The patient was sent down. Vitals were obtained which demonstrated mild tachycardia and a systolic blood pressure of 172. I was rapidly called to evaluate the patient. The patient also notes what she describes as a large bloody bowel movement this point it was all blood. She noted nausea and was retching in the office without actually vomiting. The patient states she feels she would feel better if she did vomit. She notes no bulges in her abdominal wall. The patient has a past surgical history of 3 sections. She then had an umbilical hernia repair in 2006. She had a tubal ligation then a hysterectomy. Most recently she underwent a left salpingo-oophorectomy for which I was called intraoperatively to assist due to significant adhesions to the tube and ovary structures and I performed an appendectomy at that time. This was on June 19, 2018. The patient underwent previous upper and lower endoscopy in December 2015 for nausea and change in bowel habits. Both scopes demonstrated no specific abnormalities. The patient's past medical history is significant for lupus, fibromyalgia, recurring severe major depression, generalized anxiety disorder, history of panic attacks, she smokes cigarettes. She denies other substances. The patient was seen in gynecology last week with complaints of dysuria. A urinalysis was obtained which demonstrated greater than 100,000 colony-forming units of Escherichia coli. The patient is being seen by me today at the request of Dr. Yanes for my opinion and advice regarding sudden onset severe abdominal pain. She was started on Keflex for 10 days PAST MEDICAL HISTORY Diagnosis Date - Acne Vulgaris: Grade IV Nodulocystic--scarring 08/28/2009 - Adjustment disorder with depressed mood - Allergic rhinitis, cause unspecified 03/02/2006 - Depressive disorder - Fibromyalgia - Myalgia and myositis, unspecified - Other and unspecified hyperlipidemia 2003 - Other chronic cystitis 09/20/2005 - Palpitations 07/19/2005 - Systemic lupus erythematosus (HCC) - Thyroid nodule - Thyroiditis, unspecified 2000 had PP thyroiditis / hyperthyroidism, treated with radioactive iodine, was on Synthroid for a while, but recent TSH's are normal off of meds - Tobacco abuse PAST SURGICAL HISTORY Procedure Laterality Date - APPENDECTOMY 06/19/2018 lysis of adhesions and appendectomy [facility] - BIOPSY OF BREAST 09/09/2010 U/S Core biopsy left breast - DELIVERY ONLY , low cervical - DELIVERY ONLY , low cervical - DELIVERY ONLY , low cervical - SECTION HX - COLONOSCOP W/ OR W/O BRSH SPEC 01/08/16 Colonoscopy ([facility] [place]) - COLONOSCOPY 2014 - DANDC DIAG AND/OR THERAP, NOT OB 2012 w/ ablation - EGD W/O OR W/BRUSH/WASH 01/08/16 EGD ([facility]) - HYSTERECTOMY HX 2014 Dr Harris- both ovaries remain - L'SCOPE REM ADNEX W/PART/TOT OOPH/SALP left LSO< extensive adhesions, may have left some ovarian tissue on colon/sidewall - LIGATE FALLOPIAN TUBE Tubal ligation - REMOVAL ADENOIDS,PRIMARY,<12 Y/O Adenoidectomy - REMOVAL OF TONSILS,<12 Y/O Tonsillectomy - REPAIR UMBILICAL FADUMO,5+Y/O,REDUC 2006 Current Outpatient Prescriptions: cephALEXin (KEFLEX) 500 mg capsule Take 1 capsule by mouth three times daily for 10 days. mupirocin (BACTROBAN) 2 % cream Apply 1 application to affected area three times daily for 10 days. Location: outer ear hydrocortisone 1 % cream Apply 1 application to affected area twice daily for 7 days. triamcinolone acetonide (KENALOG) 0.1 % cream Apply 1 application to affected area three times daily. Apply sparingly to area for rash/itching. (Patient not taking: Reported on 07/26/2018 ) hydrOXYzine pamoate (VISTARIL) 25 mg capsule Take 1 capsule by mouth three times daily as needed. May take 25-50 mg three times a day as needed for itching (Patient not taking: Reported on 07/26/2018 ) EPINEPHrine (EPIPEN) 0.3 mg/0.3 mL auto-injector Inject 0.3 mL intramuscularly as needed. Inject full content of the syringe. (Patient not taking: Reported on 07/26/2018 ) predniSONE (DELTASONE) 10 mg tablet Take 5 tablets by mouth once daily. (Patient not taking: Reported on 07/26/2018 ) sertraline (ZOLOFT) 100 mg tablet Take 1 tablet by mouth once daily. clonazePAM (KLONOPIN) 1 mg tablet Take 1 tablet by mouth at bedtime as needed for Anxiety. No current facility-administered medications for this visit. 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 Social History Main Topics Smoking status: Current Every Day Smoker Packs/day: 0.50 Years: 17.00 Types: Cigarettes Smokeless tobacco: Never Used Alcohol use: No Drug use: No Sexual activity: Yes Partners with: Male control/protection: Tubal Ligation, Surgical Comment: hysterectomy Other Topics Concern No BLOOD TRANSFUSIONS No CAFFEINE No OCCUPATIONAL EXPOSURE No HOBBY HAZARD No SLEEP CONCERN No STRESS CONCERN No WEIGHT CONCERN No DIET No BACK CARE No EXERCISE No BIKE HELMET No SEAT BELT No SELF EXAMS No FAMILY HISTORY: FAMILY HISTORY Problem Relation Age of Onset - Hypertension Father - Stroke Father - Alcohol/Drug Father - Heart Mother - Cancer Mother skin - Coronary Artery Disease Mother - Psychiatry Mother - Cancer Maternal Grandmother lung / brain - Breast Cancer Maternal Grandmother - Colon Cancer Maternal Grandfather - Heart Paternal Grandfather - other (MULTIPLE SCLEROSIS) Maternal Aunt - Breast Cancer Other MGM AND MGGM - in their 40's - Colon Cancer Other MGF - in his 60's REVIEW OF SYMPTOMS: The review of systems data was entered by the nurse and reviewed by me There are no exam notes on file for this visit. Review of systems not able to be obtained due to patient distress. PHYSICAL EXAMINATION: General: The patient is 43 year old female, well nourished, well hydrated in significant distress due to her abdominal discomfort, but does come down with talking and during her examination. The patient is oriented to time, place, and person. VITALS: Blood pressure 172/88, pulse 80, temperature 36.8 ?C (98.3 ?F), temperature source Temporal Artery, last menstrual period 04/07/2012, SpO2 99 %. HEENT: Normal cephalic, ataumatic, pupils are equally round, sclera are anicteric, mucous membranes are moist, oropharynx is clear. Neck has no masses, asymmetry or lymphadenopathy. Thyroid is unremarkable. Respiratory: Clear to auscultation and percussion. Normal respiratory excursion and pattern. Cardiac: Examination is regular rate and rhythm. Abdominal exam: Soft, tender on the right abdomen with referred pain to the right with palpation of the left. No obvious peritoneal signs, with no palpable masses. No hepatosplenomegaly. No palpable hernias. Rectal exam: exam deferred Extremities: no clubbing, cyanosis or edema. No adenopathy. Other: LABORATORY VALUES: As Noted RADIOLOGIC STUDIES: As Noted Assessment IMPRESSION: Abdominal pain-severe, dizziness PLAN: At this point we have called EMS to transport the patient was treated Hospital for evaluation. Discussed with the emergency room physician the patient relating the above information and anticipate will be contacted by them later today. Diagnoses: (R10.84) Generalized abdominal pain (primary encounter diagnosis) My findings have been communicated to Dr. Yanes via shared medical record. Return to Clinic: The patient is instructed to follow-up with me as needed. This note was partially generated using [employer] voice recognition system, and there may be some incorrect words, spellings, and punctuation that were not noted in checking the note before saving. Nora Atwood MD PROGRESS Observed: 07/26/2018 Status: COMPLETED Source: [place] 1:[address] [facility] REPOSITORY O ID: [id number] Author: Glenys Humphreys (Pa) Service: (none) Author Type: Physician Student Services Representative Type: Progress Notes Filed: 07/26/2018 3:00 PM Note Text: Subjective HPI Patient presents with bilateral ear itching over the past couple of days. She has on Keflex right now for UTI. She has been on that in the past she thinks. She states that outside of her ears have been itchy. She denies any swelling. She does not wear any earbuds or earplugs. No cold symptoms. No fever or chills. Review of Systems HENT: Positive for ear pain. Skin: Positive for itching. All other systems reviewed and are negative. PAST MEDICAL HISTORY Diagnosis Date - Acne Vulgaris: Grade IV Nodulocystic--scarring 08/28/2009 - Adjustment disorder with depressed mood - Allergic rhinitis, cause unspecified 03/02/2006 - Depressive disorder - Fibromyalgia - Myalgia and myositis, unspecified - Other and unspecified hyperlipidemia 2003 - Other chronic cystitis 09/20/2005 - Palpitations 07/19/2005 - Systemic lupus erythematosus (HCC) - Thyroid nodule - Thyroiditis, unspecified 2000 had PP thyroiditis / hyperthyroidism, treated with radioactive iodine, was on Synthroid for a while, but recent TSH's are normal off of meds - Tobacco abuse Current Outpatient Prescriptions: cephALEXin (KEFLEX) 500 mg capsule Take 1 capsule by mouth three times daily for 10 days. Disp: 30 capsule Rfl: 0 sertraline (ZOLOFT) 100 mg tablet Take 1 tablet by mouth once daily. Disp: 30 tablet Rfl: 5 clonazePAM (KLONOPIN) 1 mg tablet Take 1 tablet by mouth at bedtime as needed for Anxiety. Disp: 30 tablet Rfl: 1 fluconazole (DIFLUCAN) 150 mg tablet Take 1 tablet by mouth one time only for 1 dose. (Patient not taking: Reported on 07/26/2018 ) Disp: 1 tablet Rfl: 0 mupirocin (BACTROBAN) 2 % cream Apply 1 application to affected area three times daily for 10 days. Location: outer ear Disp: 15 g Rfl: 0 hydrocortisone 1 % cream Apply 1 application to affected area twice daily for 7 days. Disp: 30 g Rfl: 0 triamcinolone acetonide (KENALOG) 0.1 % cream Apply 1 application to affected area three times daily. Apply sparingly to area for rash/itching. (Patient not taking: Reported on 07/26/2018 ) Disp: 85.2 g Rfl: 1 hydrOXYzine pamoate (VISTARIL) 25 mg capsule Take 1 capsule by mouth three times daily as needed. May take 25-50 mg three times a day as needed for itching (Patient not taking: Reported on 07/26/2018 ) Disp: 30 capsule Rfl: 1 EPINEPHrine (EPIPEN) 0.3 mg/0.3 mL auto-injector Inject 0.3 mL intramuscularly as needed. Inject full content of the syringe. (Patient not taking: Reported on 07/26/2018 ) Disp: 2 Each Rfl: 0 predniSONE (DELTASONE) 10 mg tablet Take 5 tablets by mouth once daily. (Patient not taking: Reported on 07/26/2018 ) Disp: 3 tablet Rfl: 0 No current facility-administered medications for this visit. PAST SURGICAL HISTORY Procedure Laterality Date - APPENDECTOMY 06/19/2018 lysis of adhesions and appendectomy WC - BIOPSY OF BREAST 09/09/2010 U/S Core biopsy left breast - DELIVERY ONLY , low cervical - DELIVERY ONLY , low cervical - DELIVERY ONLY , low cervical - SECTION HX - COLONOSCOP W/ OR W/O BRSH SPEC 01/08/16 Colonoscopy ([facility] [place]) - COLONOSCOPY 2014 - DANDC DIAG AND/OR THERAP, NOT OB 2013 w/ ablation - EGD W/O OR W/BRUSH/WASH 01/08/16 EGD ([facility]) - HYSTERECTOMY HX 2014 Dr Harris- both ovaries remain - L'SCOPE REM ADNEX W/PART/TOT OOPH/SALP left LSO< extensive adhesions, may have left some ovarian tissue on colon/sidewall - LIGATE FALLOPIAN TUBE Tubal ligation - REMOVAL ADENOIDS,PRIMARY,<12 Y/O Adenoidectomy - REMOVAL OF TONSILS,<12 Y/O Tonsillectomy - REPAIR UMBILICAL FADUMO,5+Y/O,REDUC 2006 FAMILY HISTORY Problem Relation Age of Onset - Hypertension Father - Stroke Father - Alcohol/Drug Father - Heart Mother - Cancer Mother skin - Coronary Artery Disease Mother - Psychiatry Mother - Cancer Maternal Grandmother lung / brain - Breast Cancer Maternal Grandmother - Colon Cancer Maternal Grandfather - Heart Paternal Grandfather - other (MULTIPLE SCLEROSIS) Maternal Aunt - Breast Cancer Other MGM AND MGGM - in their 40's - Colon Cancer Other MGF - in his 60's Social History Substance Use Topics - Smoking status: Current Every Day Smoker Packs/day: 0.50 Years: 17.00 Types: Cigarettes - Smokeless tobacco: Never Used - Alcohol use No BP 112/70 Pulse 78 Temp 36.6 ?C (97.8 ?F) (Tympanic) Resp 16 Wt 75.8 kg (167 lb) LMP 04/07/2012 BMI 27.79 kg/m? Objective Physical Exam Constitutional: She is oriented to person, place, and time and well-developed, well-nourished, and in no distress. HENT: Head: Normocephalic and atraumatic. Right Ear: Tympanic membrane and ear canal normal. Left Ear: Tympanic membrane and ear canal normal. Nose: Nose normal. Mouth/Throat: Uvula is midline, oropharynx is clear and moist and mucous membranes are normal. Patient has some mild erythema and flaky skin on the external ears adjacent to the ear canals. No swelling. The canal itself is normal. TMs normal bilaterally. Cardiovascular: Normal rate, regular rhythm and normal heart sounds. Pulmonary/Chest: Effort normal and breath sounds normal. Neurological: She is alert and oriented to person, place, and time. Skin: Skin is warm and dry. Psychiatric: Affect and judgment normal. Nursing note and vitals reviewed. ASSESSMENT/PLAN: 1. Irritation of ear, bilateral - ICD9: 388.8, ICD10: H93.8X3 I did write mupirocin and hydrocortisone x 1 week. Discussed not putting inside the ear canal just the outer ear. If not improved follow up with pcp. Glenys Humphreys PA-C CNOV Observed: 07/26/2018 Status: COMPLETED Source: [place] 1:30 PM [facility] REPOSITORY Office Visit (WSTR) KAT ARITA ([id number]) 1975 F Date Time Provider Department 07/26/18 1:30 PM GLENYS HUMPHREYS (GONZALO) [facility] During your visit today, we recorded the following information about you: Temperature Pulse Respiration Blood pressure 97.8 degrees 78/minute 16/minute 112/70 Weight 75.8 kg Glenys Humphreys PA-C 07/26/2018 3:00 PM Signed Subjective HPI Patient presents with bilateral ear itching over the past couple of days. She has on Keflex right now for UTI. She has been on that in the past she thinks. She states that outside of her ears have been itchy. She denies any swelling. She does not wear any earbuds or earplugs. No cold symptoms. No fever or chills. Review of Systems HENT: Positive for ear pain. Skin: Positive for itching. All other systems reviewed and are negative. PAST MEDICAL HISTORY Diagnosis Date - Acne Vulgaris: Grade IV Nodulocystic--scarring 08/28/2009 - Adjustment disorder with depressed mood - Allergic rhinitis, cause unspecified 03/02/2006 - Depressive disorder - Fibromyalgia - Myalgia and myositis, unspecified - Other and unspecified hyperlipidemia 2003 - Other chronic cystitis 09/20/2005 - Palpitations 07/19/2005 - Systemic lupus erythematosus (HCC) - Thyroid nodule - Thyroiditis, unspecified 2000 had PP thyroiditis / hyperthyroidism, treated with radioactive iodine, was on Synthroid for a while, but recent TSH's are normal off of meds - Tobacco abuse Current Outpatient Prescriptions: cephALEXin (KEFLEX) 500 mg capsule Take 1 capsule by mouth three times daily for 10 days. Disp: 30 capsule Rfl: 0 sertraline (ZOLOFT) 100 mg tablet Take 1 tablet by mouth once daily. Disp: 30 tablet Rfl: 5 clonazePAM (KLONOPIN) 1 mg tablet Take 1 tablet by mouth at bedtime as needed for Anxiety. Disp: 30 tablet Rfl: 1 fluconazole (DIFLUCAN) 150 mg tablet Take 1 tablet by mouth one time only for 1 dose. (Patient not taking: Reported on 07/26/2018 ) Disp: 1 tablet Rfl: 0 mupirocin (BACTROBAN) 2 % cream Apply 1 application to affected area three times daily for 10 days. Location: outer ear Disp: 15 g Rfl: 0 hydrocortisone 1 % cream Apply 1 application to affected area twice daily for 7 days. Disp: 30 g Rfl: 0 triamcinolone acetonide (KENALOG) 0.1 % cream Apply 1 application to affected area three times daily. Apply sparingly to area for rash/itching. (Patient not taking: Reported on 07/26/2018 ) Disp: 85.2 g Rfl: 1 hydrOXYzine pamoate (VISTARIL) 25 mg capsule Take 1 capsule by mouth three times daily as needed. May take 25-50 mg three times a day as needed for itching (Patient not taking: Reported on 07/26/2018 ) Disp: 30 capsule Rfl: 1 EPINEPHrine (EPIPEN) 0.3 mg/0.3 mL auto-injector Inject 0.3 mL intramuscularly as needed. Inject full content of the syringe. (Patient not taking: Reported on 07/26/2018 ) Disp: 2 Each Rfl: 0 predniSONE (DELTASONE) 10 mg tablet Take 5 tablets by mouth once daily. (Patient not taking: Reported on 07/26/2018 ) Disp: 3 tablet Rfl: 0 No current facility-administered medications for this visit. PAST SURGICAL HISTORY Procedure Laterality Date - APPENDECTOMY 06/19/2018 lysis of adhesions and appendectomy WC - BIOPSY OF BREAST 09/09/2010 U/S Core biopsy left breast - DELIVERY ONLY , low cervical - DELIVERY ONLY , low cervical - DELIVERY ONLY , low cervical - SECTION HX - COLONOSCOP W/ OR W/O BRSH SPEC 01/08/16 Colonoscopy ([facility]) - COLONOSCOPY 2014 - DANDC DIAG AND/OR THERAP, NOT OB 2012 w/ ablation - EGD W/O OR W/BRUSH/WASH 01/08/16 EGD ([facility] [place]) - HYSTERECTOMY HX 2014 Dr Harris- both ovaries remain - L'SCOPE REM ADNEX W/PART/TOT OOPH/SALP left LSO< extensive adhesions, may have left some ovarian tissue on colon/sidewall - LIGATE FALLOPIAN TUBE Tubal ligation - REMOVAL ADENOIDS,PRIMARY,<12 Y/O Adenoidectomy - REMOVAL OF TONSILS,<12 Y/O Tonsillectomy - REPAIR UMBILICAL FADUMO,5+Y/O,REDUC 2006 FAMILY HISTORY Problem Relation Age of Onset - Hypertension Father - Stroke Father - Alcohol/Drug Father - Heart Mother - Cancer Mother skin - Coronary Artery Disease Mother - Psychiatry Mother - Cancer Maternal Grandmother lung / brain - Breast Cancer Maternal Grandmother - Colon Cancer Maternal Grandfather - Heart Paternal Grandfather - other (MULTIPLE SCLEROSIS) Maternal Aunt - Breast Cancer Other MGM AND MGGM - in their 40's - Colon Cancer Other MGF - in his 60's Social History Substance Use Topics - Smoking status: Current Every Day Smoker Packs/day: 0.50 Years: 17.00 Types: Cigarettes - Smokeless tobacco: Never Used - Alcohol use No BP 112/70 Pulse 78 Temp 36.6 ?C (97.8 ?F) (Tympanic) Resp 16 Wt 75.8 kg (167 lb) LMP 04/07/2012 BMI 27.79 kg/m? Objective Physical Exam Constitutional: She is oriented to person, place, and time and well-developed, well-nourished, and in no distress. HENT: Head: Normocephalic and atraumatic. Right Ear: Tympanic membrane and ear canal normal. Left Ear: Tympanic membrane and ear canal normal. Nose: Nose normal. Mouth/Throat: Uvula is midline, oropharynx is clear and moist and mucous membranes are normal. Patient has some mild erythema and flaky skin on the external ears adjacent to the ear canals. No swelling. The canal itself is normal. TMs normal bilaterally. Cardiovascular: Normal rate, regular rhythm and normal heart sounds. Pulmonary/Chest: Effort normal and breath sounds normal. Neurological: She is alert and oriented to person, place, and time. Skin: Skin is warm and dry. Psychiatric: Affect and judgment normal. Nursing note and vitals reviewed. ASSESSMENT/PLAN: 1. Irritation of ear, bilateral - ICD9: 388.8, ICD10: H93.8X3 I did write mupirocin and hydrocortisone x 1 week. Discussed not putting inside the ear canal just the outer ear. If not improved follow up with pcp. Glenys Humphreys PA-C Referring Provider: SELF [[id number]] Allergies As of Date: 07/26/2018 Noted Allergy Reaction IODINATED CONTRAST- ORAL AND IV D*02/24/2017 4 - Hives AUGMENTIN (AMOXICILLIN-POT CLAVUL*07/19/2005 4 - Hives BACTRIM (SULFAMETHOXAZOLE-TRIMETH*12/04/2015 4 - Hives 7 - Swelling CETIRIZINE 14 - Other: See Comments Comments: Other reaction(s): Palpitations Environmental allergies [Other] 06/14/2006 Comments: Dust mites, molds IBUPROFEN 12/04/2015 4 - Hives 7 - Swelling IV CONTRAST (IODINE) 12/04/2015 2 - Rash 7 - Swelling MACRODANTIN (NITROFURANTOIN MACRO*07/19/2005 4 - Hives NSAIDS (NON-STEROIDAL ANTI-INFLAM*12/04/2015 4 - Hives Comments: Is able to take Toradol - given after surgery 2017 with no allergic response PHENAZOPYRIDINE 7 - Swelling Comments: Other reaction(s): Hives PSEUDOEPHEDRINE HCL 14 - Other: See Comments Comments: Other reaction(s): Palpitations PYRIDIUM (PHENAZOPYRIDINE HCL) 03/21/2007 2 - Rash Date Reviewed: 07/26/2018 Reviewed by: Mary Herrera Ma - Fully Assessed Reason for Visit: Ear Pain [817] Cmt: bilateral ear pain with itching on outside of ears x few days Primary Visit Diagnosis:Irritation of ear, bilateral [H93.8X3] Order(s):mupirocin (BACTROBAN) 2 % creamApply 1 application to affected area three times daily for 10 days. Location: outer earDisp: 15 gRfl: 0 hydrocortisone 1 % creamApply 1 application to affected area twice daily for 7 days.Disp: 30 gRfl: 0 Prescriptions as of 07/26/2018 Sig: CEPHALEXIN 500 MG CAPSULE Take 1 capsule by mouth three* SERTRALINE 100 MG TABLET Take 1 tablet by mouth once d* CLONAZEPAM 1 MG TABLET Take 1 tablet by mouth at bed* FLUCONAZOLE 150 MG TABLET Take 1 tablet by mouth one ti* Patient not taking: Reported on 07/26/2018 MUPIROCIN 2 % TOPICAL CREAM Apply 1 application to affect* HYDROCORTISONE 1 % TOPICAL CR* Apply 1 application to affect* TRIAMCINOLONE ACETONIDE 0.1 %* Apply 1 application to affect* Patient not taking: Reported on 07/26/2018 HYDROXYZINE PAMOATE 25 MG CAP* Take 1 capsule by mouth three* Patient not taking: Reported on 07/26/2018 EPINEPHRINE 0.3 MG/0.3 ML INJ* Inject 0.3 mL intramuscularly* Patient not taking: Reported on 07/26/2018 PREDNISONE 10 MG TABLET Take 5 tablets by mouth once * Patient not taking: Reported on 07/26/2018 Problem List As Of Date 07/26/2018 Noted Resolved Severe episode of recurrent major depressive di*INVALID FOR* Generalized anxiety disorder [F41.1] INVALID FOR* ADJUSTMENT DISORDER WITH DEPRESSED MOOD [F43.21] 01/06/2007 Systemic lupus erythematosus (HCC) [M32.9] 12/29/2015 Fibromyalgia [M79.7] Palpitations [R00.2] INVALID FOR*12/29/2015 HYPOTHYROIDISM NOS [E03.9] INVALID FOR*01/06/2007 Other chronic cystitis [N30.20] INVALID FOR*12/29/2015 ALLERGIC RHINITIS NOS [J30.9] INVALID FOR* HYPERLIPIDEMIA NEC/NOS [E78.5] Thyroiditis, unspecified [E06.9] 12/29/2015 More... Acne Vulgaris: Grade IV Nodulocystic--scarring*INVALID FOR*12/29/2015 Scar Condition AND Fibrosis of Skin: acne: face*INVALID FOR* Sebaceous cyst [L72.3] INVALID FOR*12/29/2015 Dermatitis due to Unspec [L25.9] INVALID FOR*12/29/2015 Vitamin D deficiency [E55.9] INVALID FOR*12/29/2015 Tobacco abuse [Z72.0] INVALID FOR* Recurrent major depression in partial remission*INVALID FOR* Marital conflict [Z63.0] INVALID FOR* Panic disorder without agoraphobia [F41.0] INVALID FOR* Hx of Graves' disease [Z86.39] INVALID FOR* Impaired fasting glucose [R73.01] INVALID FOR* Uninodular goiter [E04.1] INVALID FOR* Thyroid nodule [E04.1] INVALID FOR* Prescriptions ordered this encounter Disp Refills Start End MUPIROCIN 2 % TOPICAL CREAM 15 g 0 07/26/2018 08/05/2018 Route: TOPICAL Sig: Apply 1 application to affected area three times daily for 10 days. Location: outer ear HYDROCORTISONE 1 % TOPICAL CREAM 30 g 0 07/26/2018 08/02/2018 Route: TOPICAL Sig: Apply 1 application to affected area twice daily for 7 days. Encounter Status:Closed by GLENYS HUMPHREYS PA-C on 07/26/18 APOLINAR Observed: 07/26/2018 Status: COMPLETED Source: [place] 12:00 AM [facility] REPOSITORY Telephone (WOOB) KAT ARITA ([id number]) 1975 F Date Time Provider Department 07/26/18 MEGHNA PRO (PK) WOOB During your visit today, we recorded the following information about you: Meghna Pro APRN.CNP 07/26/2018 11:36 AM Signed Please let the pt know that the vaginal culture were negative but I will send in Diflucan for her to take when she completes the ATB for the UTI. LUO Irahetaque RN 07/26/2018 12:15 PM Signed Attempted to call patient. Unable to leave message-voicemail not set up yet. aDlia Summerse David VALADEZ 07/27/2018 3:47 PM Signed ----- Message from Meghna Pro sent at 07/27/2018 3:22 PM EST ----- Pt was treated at [facility]. LOU Iraheta LPN 07/27/2018 3:48 PM Signed + UTI-was treated at [facility]. See note below also regarding Diflucan Melia Hernandez LPN 07/27/2018 4:07 PM Signed Not able to leave a message d/t voicemail not being set up. Charity Peng RN 07/31/2018 3:09 PM Signed Again, attempted to notify patient. No answer and voicemail not set up yet. Patient doesn't check her mychart. Letter mailed. Charity Peng RN Allergies As of Date: 07/26/2018 Noted Allergy Reaction IODINATED CONTRAST- ORAL AND IV D*02/24/2017 4 - Hives AUGMENTIN (AMOXICILLIN-POT CLAVUL*07/19/2005 4 - Hives BACTRIM (SULFAMETHOXAZOLE-TRIMETH*12/04/2015 4 - Hives 7 - Swelling CETIRIZINE 14 - Other: See Comments Comments: Other reaction(s): Palpitations Environmental allergies [Other] 06/14/2006 Comments: Dust mites, molds IBUPROFEN 12/04/2015 4 - Hives 7 - Swelling IV CONTRAST (IODINE) 12/04/2015 2 - Rash 7 - Swelling MACRODANTIN (NITROFURANTOIN MACRO*07/19/2005 4 - Hives NSAIDS (NON-STEROIDAL ANTI-INFLAM*12/04/2015 4 - Hives Comments: Is able to take Toradol - given after surgery 2017 with no allergic response PHENAZOPYRIDINE 7 - Swelling Comments: Other reaction(s): Hives PSEUDOEPHEDRINE HCL 14 - Other: See Comments Comments: Other reaction(s): Palpitations PYRIDIUM (PHENAZOPYRIDINE HCL) 03/21/2007 2 - Rash Date Reviewed: 07/26/2018 Reviewed by: Mary Herrera Ma - Fully Assessed Reason for Visit: Results [95] Order(s):[] fluconazole (DIFLUCAN) 150 mg tabletTake 1 tablet by mouth one time only for 1 dose.Disp: 1 tabletRfl: 0 Prescriptions as of 07/26/2018 Sig: FLUCONAZOLE 150 MG TABLET Take 1 tablet by mouth one ti* Patient not taking: Reported on 07/26/2018 CEPHALEXIN 500 MG CAPSULE Take 1 capsule by mouth three* TRIAMCINOLONE ACETONIDE 0.1 %* Apply 1 application to affect* Patient not taking: Reported on 07/26/2018 HYDROXYZINE PAMOATE 25 MG CAP* Take 1 capsule by mouth three* Patient not taking: Reported on 07/26/2018 EPINEPHRINE 0.3 MG/0.3 ML INJ* Inject 0.3 mL intramuscularly* Patient not taking: Reported on 07/26/2018 PREDNISONE 10 MG TABLET Take 5 tablets by mouth once * Patient not taking: Reported on 07/26/2018 SERTRALINE 100 MG TABLET Take 1 tablet by mouth once d* CLONAZEPAM 1 MG TABLET Take 1 tablet by mouth at bed* Problem List As Of Date 07/26/2018 Noted Resolved Severe episode of recurrent major depressive di*INVALID FOR* Generalized anxiety disorder [F41.1] INVALID FOR* ADJUSTMENT DISORDER WITH DEPRESSED MOOD [F43.21] 01/06/2007 Systemic lupus erythematosus (HCC) [M32.9] 12/29/2015 Fibromyalgia [M79.7] Palpitations [R00.2] INVALID FOR*12/29/2015 HYPOTHYROIDISM NOS [E03.9] INVALID FOR*01/06/2007 Other chronic cystitis [N30.20] INVALID FOR*12/29/2015 ALLERGIC RHINITIS NOS [J30.9] INVALID FOR* HYPERLIPIDEMIA NEC/NOS [E78.5] Thyroiditis, unspecified [E06.9] 12/29/2015 More... Acne Vulgaris: Grade IV Nodulocystic--scarring*INVALID FOR*12/29/2015 Scar Condition AND Fibrosis of Skin: acne: face*INVALID FOR* Sebaceous cyst [L72.3] INVALID FOR*12/29/2015 Dermatitis due to Unspec [L25.9] INVALID FOR*12/29/2015 Vitamin D deficiency [E55.9] INVALID FOR*12/29/2015 Tobacco abuse [Z72.0] INVALID FOR* Recurrent major depression in partial remission*INVALID FOR* Marital conflict [Z63.0] INVALID FOR* Panic disorder without agoraphobia [F41.0] INVALID FOR* Hx of Graves' disease [Z86.39] INVALID FOR* Impaired fasting glucose [R73.01] INVALID FOR* Uninodular goiter [E04.1] INVALID FOR* Thyroid nodule [E04.1] INVALID FOR* Prescriptions ordered this encounter Disp Refills Start End FLUCONAZOLE 150 MG TABLET 1 ta* 0 07/26/2018 07/26/2018 Route: ORAL Sig: Take 1 tablet by mouth one time only for 1 dose. Letter Text Meghna Pro CNP [facility] [address] [place], [place] [id number] Kat Arita [id number] [facility] [address] 07/31/2018 Dear Kat, We have been unable to reach you by phone. Please call between 8am and 5pm at your earliest convenience and ask to speak with a nurse regarding need for additional medication. Thank you for choosing the [facility]. Sincerely, Meghna Pro CNP Encounter Status:Closed by MEGHNA PRO on 07/31/18 Observed: 07/24/2018 Status: F Source: [place] URINE CULTURE 4:[address] [facility] REPOSITORY Sp. Request/Comment: - Specimen received in preservative Culture Result - >=100,000 CFU/ml Escherichia coli --> ABNORMAL ALERT ORGANISM: Escherichia coli METHOD: Minimum inhibitory concentration(Vitek) Antibiotic Interp ENMA Status Ampicillin SUSCEPTIBLE <=2 F Gentamicin SUSCEPTIBLE <=1 F Trimeth sulfameth SUSCEPTIBLE <=20 F Cefazolin SUSCEPTIBLE <=4 F CLSI breakpoints for therapy of uncomplicated UTI's due to E.coli, K.pneumoniae, and P.mirabilis were applied and may be used to predict the activity of oral agents(cefaclor, cefdinir, cefpodoxime, cefp rozil, cefuroxime, cephalexin, loracarbef). Ciprofloxacin SUSCEPTIBLE <=0.25 F Nitrofurantoin SUSCEPTIBLE 32 F Cefepime SUSCEPTIBLE <=1 F Piperacillin/Tazobac SUSCEPTIBLE <=4 F Ampicillin Sulbact SUSCEPTIBLE <=2 F Ceftriaxone SUSCEPTIBLE <=1 F Meropenem SUSCEPTIBLE <=0.25 F Ertapenem SUSCEPTIBLE <=0.5 F Performed By: #### URCUL #### [facility] [address] [place], [place] [address] PROGRESS Observed: 07/24/2018 Status: COMPLETED Source: [place] 2:[address] [facility] RE[facility]ITORY HNO ID: [id number] Author: Meghna Clement) Layla Service: (none) Author Type: Nurse Practitioner Type: Progress Notes Filed: 07/24/2018 3:17 PM Note Text: Kat Arita is a 43 year old female who presents for problem visit Dysuria, vaginal discharge and itching for 3 days. HPI: pt states that she notice about 3 days ago the dysuria and just seem to be getting worst, also having some frequency with little output. Vaginal discharge is white/greer/yellow- she used some monostat late nite. She also notice a lump on the upper inner thigh and it is red and painful. Denies any fever or chills. PAST MEDICAL HISTORY Diagnosis Date - Acne Vulgaris: Grade IV Nodulocystic--scarring 08/28/2009 - Adjustment disorder with depressed mood - Allergic rhinitis, cause unspecified 03/02/2006 - Depressive disorder - Fibromyalgia - Myalgia and myositis, unspecified - Other and unspecified hyperlipidemia 2003 - Other chronic cystitis 09/20/2005 - Palpitations 07/19/2005 - Systemic lupus erythematosus (HCC) - Thyroid nodule - Thyroiditis, unspecified 2000 had PP thyroiditis / hyperthyroidism, treated with radioactive iodine, was on Synthroid for a while, but recent TSH's are normal off of meds - Tobacco abuse PAST SURGICAL HISTORY Procedure Laterality Date - APPENDECTOMY 06/19/2018 lysis of adhesions and appendectomy WC - BIOPSY OF BREAST 09/09/2010 U/S Core biopsy left breast - DELIVERY ONLY , low cervical - DELIVERY ONLY , low cervical - DELIVERY ONLY , low cervical - SECTION HX - COLONOSCOP W/ OR W/O BRSH SPEC 01/08/16 Colonoscopy ([facility]) - COLONOSCOPY 2014 - DANDC DIAG AND/OR THERAP, NOT OB 2012 w/ ablation - EGD W/O OR W/BRUSH/WASH 01/08/16 EGD ([facility]) - HYSTERECTOMY HX 2014 Dr Harris- both ovaries remain - L'SCOPE REM ADNEX W/PART/TOT OOPH/SALP left LSO< extensive adhesions, may have left some ovarian tissue on colon/sidewall - LIGATE FALLOPIAN TUBE Tubal ligation - REMOVAL ADENOIDS,PRIMARY,<12 Y/O Adenoidectomy - REMOVAL OF TONSILS,<12 Y/O Tonsillectomy - REPAIR UMBILICAL FADUMO,5+Y/O,REDUC 2006 FAMILY HISTORY Problem Relation Age of Onset - Hypertension Father - Stroke Father - Alcohol/Drug Father - Heart Mother - Cancer Mother skin - Coronary Artery Disease Mother - Psychiatry Mother - Cancer Maternal Grandmother lung / brain - Breast Cancer Maternal Grandmother - Colon Cancer Maternal Grandfather - Heart Paternal Grandfather - other (MULTIPLE SCLEROSIS) Maternal Aunt - Breast Cancer Other MGM AND MGGM - in their 40's - Colon Cancer Other MGF - in his 60's Social History Marital status: Spouse name: KRISTEN Years of education: 12 Number of children: 3 Occupational History 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 Social History Main Topics Smoking status: Current Every Day Smoker Packs/day: 0.50 Years: 17.00 Types: Cigarettes Smokeless tobacco: Never Used Alcohol use: No Drug use: No Sexual activity: Yes Partners with: Male control/protection: Tubal Ligation, Surgical Comment: hysterectomy Other Topics Concern No BLOOD TRANSFUSIONS No CAFFEINE No OCCUPATIONAL EXPOSURE No HOBBY HAZARD No SLEEP CONCERN No STRESS CONCERN No WEIGHT CONCERN No DIET No BACK CARE No EXERCISE No BIKE HELMET No SEAT BELT No SELF EXAMS No Current Outpatient Prescriptions: triamcinolone acetonide (KENALOG) 0.1 % cream Apply 1 application to affected area three times daily. Apply sparingly to area for rash/itching. hydrOXYzine pamoate (VISTARIL) 25 mg capsule Take 1 capsule by mouth three times daily as needed. May take 25-50 mg three times a day as needed for itching EPINEPHrine (EPIPEN) 0.3 mg/0.3 mL auto-injector Inject 0.3 mL intramuscularly as needed. Inject full content of the syringe. predniSONE (DELTASONE) 10 mg tablet Take 5 tablets by mouth once daily. sertraline (ZOLOFT) 100 mg tablet Take 1 tablet by mouth once daily. clonazePAM (KLONOPIN) 1 mg tablet Take 1 tablet by mouth at bedtime as needed for Anxiety. No current facility-administered medications for this visit. Allergies As of Date: 07/24/2018 Allergen Noted Reaction IODINATED CONTRAST- ORAL AND IV D*02/24/2017 Hives AUGMENTIN [AMOXICILLIN-POT CLAVUL*07/19/2005 Hives BACTRIM [SULFAMETHOXAZOLE-TRIMETH*12/04/2015 Hives and Swelling CETIRIZINE Other: See Comments ENVIRONMENTAL ALLERGIES [OTHER] 06/14/2006 IBUPROFEN 12/04/2015 Hives and Swelling IV CONTRAST [IODINE] 12/04/2015 Rash and Swelling MACRODANTIN [NITROFURANTOIN MACRO*07/19/2005 Hives NSAIDS (NON-STEROIDAL ANTI-INFLAM*12/04/2015 Hives PHENAZOPYRIDINE Swelling PSEUDOEPHEDRINE HCL Other: See Comments PYRIDIUM [PHENAZOPYRIDINE HCL] 03/21/2007 Rash Fully Assessed 07/24/2018 REVIEW OF SYSTEMS Abdomen: No bloating, early satiety, indigestion, or increased flatulence. No abdominal pain, nausea, vomiting, diarrhea, or constipation. Bladder: dysuria and frequency . Expanded ROS: N/A Allergies and current medication updated:Yes EXAM: Wt 171 lb 9.6 oz (77.8kg) LMP 04/07/2012 GENERAL: pleasant, female in no apparent distress HEENT: Normocephalic, atraumatic, mucus membranes moist and no lesions CHEST: Normal inspiratory effort PELVIC: external genitalia normal, normal Bartholin's glands, urethra, [place]'s glands, no vulvar lesions, no cervical lesions, good vaginal support, normal appearing perineal body and perianal region, large amount of white discharge NEURO: alert and oriented x3,exam grossly non-focal SKIN: right upper inner thigh with semi-firm lump that is red and warm to touch ASSESSMENT AND PLAN: Encounter Diagnosis ICD-10-CM 1. Dysuria R30.0 UA DIP B/O I AND D of right thigh cyst- Keflex given for 10 days BVC sent will call with results She will need Diflucan at the end of ATB treatment. Meghna Pro APRN.PK CNOV Observed: 07/24/2018 Status: COMPLETED Source: [facility] 2:[address] [facility] REPOSITORY Office Visit (WOOB) KAT ARITA ([id number]) 1975 F Date Time Provider Department 07/24/18 2:30 PM MEGHNA PRO (PK) WOOB During your visit today, we recorded the following information about you: Blood pressure Weight 122/64 77.8 kg Meghna Pro APRN.CNP 07/24/2018 3:17 PM Signed Kat Arita is a 43 year old female who presents for problem visit Dysuria, vaginal discharge and itching for 3 days. HPI: pt states that she notice about 3 days ago the dysuria and just seem to be getting worst, also having some frequency with little output. Vaginal discharge is white/greer/yellow- she used some monostat late nite. She also notice a lump on the upper inner thigh and it is red and painful. Denies any fever or chills. PAST MEDICAL HISTORY Diagnosis Date - Acne Vulgaris: Grade IV Nodulocystic--scarring 08/28/2009 - Adjustment disorder with depressed mood - Allergic rhinitis, cause unspecified 03/02/2006 - Depressive disorder - Fibromyalgia - Myalgia and myositis, unspecified - Other and unspecified hyperlipidemia 2003 - Other chronic cystitis 09/20/2005 - Palpitations 07/19/2005 - Systemic lupus erythematosus (HCC) - Thyroid nodule - Thyroiditis, unspecified 2000 had PP thyroiditis / hyperthyroidism, treated with radioactive iodine, was on Synthroid for a while, but recent TSH's are normal off of meds - Tobacco abuse PAST SURGICAL HISTORY Procedure Laterality Date - APPENDECTOMY 06/19/2018 lysis of adhesions and appendectomy WC - BIOPSY OF BREAST 09/09/2010 U/S Core biopsy left breast - DELIVERY ONLY , low cervical - DELIVERY ONLY , low cervical - DELIVERY ONLY , low cervical - SECTION HX - COLONOSCOP W/ OR W/O BRSH SPEC 01/08/16 Colonoscopy ([facility]) - COLONOSCOPY 2014 - DANMI DIAG AND/OR THERAP, NOT OB 2012 w/ ablation - EGD W/O OR W/BRUSH/WASH 01/08/16 EGD ([facility]) - HYSTERECTOMY HX 2014 Dr Harris- both ovaries remain - L'SCOPE REM ADNEX W/PART/TOT OOPH/SALP left LSO< extensive adhesions, may have left some ovarian tissue on colon/sidewall - LIGATE FALLOPIAN TUBE Tubal ligation - REMOVAL ADENOIDS,PRIMARY,<12 Y/O Adenoidectomy - REMOVAL OF TONSILS,<12 Y/O Tonsillectomy - REPAIR UMBILICAL FADUMO,5+Y/O,REDUC 2006 FAMILY HISTORY Problem Relation Age of Onset - Hypertension Father - Stroke Father - Alcohol/Drug Father - Heart Mother - Cancer Mother skin - Coronary Artery Disease Mother - Psychiatry Mother - Cancer Maternal Grandmother lung / brain - Breast Cancer Maternal Grandmother - Colon Cancer Maternal Grandfather - Heart Paternal Grandfather - other (MULTIPLE SCLEROSIS) Maternal Aunt - Breast Cancer Other MGM AND MGGM - in their 40's - Colon Cancer Other MGF - in his 60's Social History Marital status: Spouse name: KRISTEN Years of education: 12 Number of children: 3 Occupational History 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 Social History Main Topics Smoking status: Current Every Day Smoker Packs/day: 0.50 Years: 17.00 Types: Cigarettes Smokeless tobacco: Never Used Alcohol use: No Drug use: No Sexual activity: Yes Partners with: Male control/protection: Tubal Ligation, Surgical Comment: hysterectomy Other Topics Concern No BLOOD TRANSFUSIONS No CAFFEINE No OCCUPATIONAL EXPOSURE No HOBBY HAZARD No SLEEP CONCERN No STRESS CONCERN No WEIGHT CONCERN No DIET No BACK CARE No EXERCISE No BIKE HELMET No SEAT BELT No SELF EXAMS No Current Outpatient Prescriptions: triamcinolone acetonide (KENALOG) 0.1 % cream Apply 1 application to affected area three times daily. Apply sparingly to area for rash/itching. hydrOXYzine pamoate (VISTARIL) 25 mg capsule Take 1 capsule by mouth three times daily as needed. May take 25-50 mg three times a day as needed for itching EPINEPHrine (EPIPEN) 0.3 mg/0.3 mL auto-injector Inject 0.3 mL intramuscularly as needed. Inject full content of the syringe. predniSONE (DELTASONE) 10 mg tablet Take 5 tablets by mouth once daily. sertraline (ZOLOFT) 100 mg tablet Take 1 tablet by mouth once daily. clonazePAM (KLONOPIN) 1 mg tablet Take 1 tablet by mouth at bedtime as needed for Anxiety. No current facility-administered medications for this visit. Allergies As of Date: 07/24/2018 Allergen Noted Reaction IODINATED CONTRAST- ORAL AND IV D*02/24/2017 Hives AUGMENTIN [AMOXICILLIN-POT CLAVUL*07/19/2005 Hives BACTRIM [SULFAMETHOXAZOLE-TRIMETH*12/04/2015 Hives and Swelling CETIRIZINE Other: See Comments ENVIRONMENTAL ALLERGIES [OTHER] 06/14/2006 IBUPROFEN 12/04/2015 Hives and Swelling IV CONTRAST [IODINE] 12/04/2015 Rash and Swelling MACRODANTIN [NITROFURANTOIN MACRO*07/19/2005 Hives NSAIDS (NON-STEROIDAL ANTI-INFLAM*12/04/2015 Hives PHENAZOPYRIDINE Swelling PSEUDOEPHEDRINE HCL Other: See Comments PYRIDIUM [PHENAZOPYRIDINE HCL] 03/21/2007 Rash Fully Assessed 07/24/2018 REVIEW OF SYSTEMS Abdomen: No bloating, early satiety, indigestion, or increased flatulence. No abdominal pain, nausea, vomiting, diarrhea, or constipation. Bladder: dysuria and frequency . Expanded ROS: N/A Allergies and current medication updated:Yes EXAM: Wt 171 lb 9.6 oz (77.8kg) LMP 04/07/2012 GENERAL: pleasant, female in no apparent distress HEENT: Normocephalic, atraumatic, mucus membranes moist and no lesions CHEST: Normal inspiratory effort PELVIC: external genitalia normal, normal Bartholin's glands, urethra, [place]'s glands, no vulvar lesions, no cervical lesions, good vaginal support, normal appearing perineal body and perianal region, large amount of white discharge NEURO: alert and oriented x3,exam grossly non-focal SKIN: right upper inner thigh with semi-firm lump that is red and warm to touch ASSESSMENT AND PLAN: Encounter Diagnosis ICD-10-CM 1. Dysuria R30.0 UA DIP B/O I AND D of right thigh cyst- Keflex given for 10 days BVC sent will call with results She will need Diflucan at the end of ATB treatment. Meghna Pro APRN.PK Pro APRN.CNP 07/24/2018 4:07 PM Signed Addended by: MEGHNA PRO on: 07/24/2018 04:07 PM Modules accepted: Orders Referring Provider: SELF [[id number]] Allergies As of Date: 07/24/2018 Noted Allergy Reaction IODINATED CONTRAST- ORAL AND IV D*02/24/2017 4 - Hives AUGMENTIN (AMOXICILLIN-POT CLAVUL*07/19/2005 4 - Hives BACTRIM (SULFAMETHOXAZOLE-TRIMETH*12/04/2015 4 - Hives 7 - Swelling CETIRIZINE 14 - Other: See Comments Comments: Other reaction(s): Palpitations Environmental allergies [Other] 06/14/2006 Comments: Dust mites, molds IBUPROFEN 12/04/2015 4 - Hives 7 - Swelling IV CONTRAST (IODINE) 12/04/2015 2 - Rash 7 - Swelling MACRODANTIN (NITROFURANTOIN MACRO*07/19/2005 4 - Hives NSAIDS (NON-STEROIDAL ANTI-INFLAM*12/04/2015 4 - Hives Comments: Is able to take Toradol - given after surgery 2017 with no allergic response PHENAZOPYRIDINE 7 - Swelling Comments: Other reaction(s): Hives PSEUDOEPHEDRINE HCL 14 - Other: See Comments Comments: Other reaction(s): Palpitations PYRIDIUM (PHENAZOPYRIDINE HCL) 03/21/2007 2 - Rash Date Reviewed: 07/24/2018 Reviewed by: Neda Delacruz LPN - Fully Assessed Reason for Visit: Dysuria [1085] Primary Visit Diagnosis:Dysuria [R30.0] Other Visit Diagnoses:Vaginal discharge [N89.8] Skin cyst [L72.9] Order(s):UA DIP B/O [[id number]] Order #: [id number] UA DIP, URINE (POC) [[id number]] Order #: [id number]. #:[id number] cephALEXin (KEFLEX) 500 mg capsuleTake 1 capsule by mouth three times daily for 10 days.Disp: 30 capsuleRfl: 0 BACT/KINGSLEY VAG GRAM STAIN [SQBVCNSM] Order #: [id number] FUTURE URINE CULTURE [SQURCUL] Order #: [id number] Prescriptions as of 07/24/2018 Sig: CEPHALEXIN 500 MG CAPSULE Take 1 capsule by mouth three* TRIAMCINOLONE ACETONIDE 0.1 %* Apply 1 application to affect* HYDROXYZINE PAMOATE 25 MG CAP* Take 1 capsule by mouth three* EPINEPHRINE 0.3 MG/0.3 ML INJ* Inject 0.3 mL intramuscularly* PREDNISONE 10 MG TABLET Take 5 tablets by mouth once * SERTRALINE 100 MG TABLET Take 1 tablet by mouth once d* CLONAZEPAM 1 MG TABLET Take 1 tablet by mouth at bed* Problem List As Of Date 07/24/2018 Noted Resolved Severe episode of recurrent major depressive di*INVALID FOR* Generalized anxiety disorder [F41.1] INVALID FOR* ADJUSTMENT DISORDER WITH DEPRESSED MOOD [F43.21] 01/06/2007 Systemic lupus erythematosus (HCC) [M32.9] 12/29/2015 Fibromyalgia [M79.7] Palpitations [R00.2] INVALID FOR*12/29/2015 HYPOTHYROIDISM NOS [E03.9] INVALID FOR*01/06/2007 Other chronic cystitis [N30.20] INVALID FOR*12/29/2015 ALLERGIC RHINITIS NOS [J30.9] INVALID FOR* HYPERLIPIDEMIA NEC/NOS [E78.5] Thyroiditis, unspecified [E06.9] 12/29/2015 More... Acne Vulgaris: Grade IV Nodulocystic--scarring*INVALID FOR*12/29/2015 Scar Condition AND Fibrosis of Skin: acne: face*INVALID FOR* Sebaceous cyst [L72.3] INVALID FOR*12/29/2015 Dermatitis due to Unspec [L25.9] INVALID FOR*12/29/2015 Vitamin D deficiency [E55.9] INVALID FOR*12/29/2015 Tobacco abuse [Z72.0] INVALID FOR* Recurrent major depression in partial remission*INVALID FOR* Marital conflict [Z63.0] INVALID FOR* Panic disorder without agoraphobia [F41.0] INVALID FOR* Hx of Graves' disease [Z86.39] INVALID FOR* Impaired fasting glucose [R73.01] INVALID FOR* Uninodular goiter [E04.1] INVALID FOR* Thyroid nodule [E04.1] INVALID FOR* Prescriptions ordered this encounter Disp Refills Start End CEPHALEXIN 500 MG CAPSULE 30 c* 0 07/24/2018 08/03/2018 Route: ORAL Sig: Take 1 capsule by mouth three times daily for 10 days. Encounter Status:Closed by MEGHNA PRO on 07/24/18 Observed: 07/24/2018 Status: F Source: [facility] BACT/CAND VAG GRM [facility] 2:25 AM [facility] REPOSITORY Sp. Request/Comment: - Swab Smear Result - BACTERIAL VAGINOSIS RESULT: Stain results consistent with normal vaginal jorge. No Yeast observed No Polymorphonuclear Leukocytes Performed By: #### BVCNSM #### [place] [address] Observed: 07/04/2018 Status: F Source: [facility] BACT/CAND VAG GRM ST 3:30 PM [facility] REPOSITORY Sp. Request/Comment: - Swab Smear Result - BACTERIAL VAGINOSIS RESULT: Stain results consistent with normal vaginal jorge. Many --> ABNORMAL ALERT Yeast --> ABNORMAL ALERT Rare Polymorphonuclear leukocytes Performed By: #### BVCNSM #### [place] [address] GC/CHLAMYDIA AMPLIF Collected: 07/04/2018 Status: F Source: [facility] 3:30 PM [facility] REPOSITORY TYPE CODE TESTS RESULT OUT OF REFERENCE UNITS RANGE LAB GCCTSR GC/Chlam Amp [facility]ervix Source LAB GCAMPL GC Negative Amplification for Neisseria gonorrhoeae by amplification. LAB CLAMPL Chlamydia Negative Amplif for Chlamydia trachomatis by amplification. Performed By: #### GCCT #### [place] [address] Observed: 07/04/2018 Status: F Source: [facility] TRICHOMONAS PREP 3:30 PM [facility] REPOSITORY Sp. Request/Comment: - Swab Smear Result - Negative for Trichomonas vaginalis antigen This test was developed and its performance characteristics determined by [facility] [place] ([facility] It has not been cleared or approved by the FDA. [facility] is regulated under CLIA as qualified to perform high-complexity testing. This test is used for clinical purposes. It should not be regarded as investigational or for research. Performed By: #### TRICHO #### [place] [address] PROGRESS Observed: 07/04/2018 Status: COMPLETED Source: [facility] 3:07 PM [facility] REPOSITORY HNO ID: [id number] Author: Tabby Dc Ma Service: (none) Author Type: (none) Type: Progress Notes Filed: 07/04/2018 4:56 PM Note Text: Would you like a refinery superintendent present for your visit today? No Tabby Dao Wilma PROGRESS Observed: 07/04/2018 Status: COMPLETED Source: [facility] 3:01 PM [facility] REPOSITORY HNO ID: [id number] Author: Cassie Clarke Service: (none) Author Type: Nurse Practitioner Type: Progress Notes Filed: 07/04/2018 4:56 PM Note Text: Kat Arita is a 43 year old female who presents for vaginal pruritis for 2 days. Vaginal discharge: scant amount, thin and yellow. Slight fishy odor Itching: Yes Dyspareunia: YES from irritation Fever/chills: No Abdominal pain: Yes,lower aching/cramping Bladder: Negative for dysuria or frequency Bowel: No blood in stool, pain with BM, tarry stool, persistent diarrhea or constipation Any new sexual partners or concern for STD exposure: Yes, partner has been unfaithful in past Does your partner have any new complaints: Partner using powder for yeast infection in groin Are you currently taking any medications to treat vaginitis: No Do you use feminine sprays, douches or deodorants: No Menstrual cycle: hysterectomy Past medical, surgical, social history, medications and allergies reviewed and updated. OBJECTIVE: BP 120/80 Wt 169 lb 3.2 oz (76.7kg) LMP 04/07/2012 GENERAL: Well developed, well nourished in no apparent distress ABDOMEN: soft, non-tender and no masses. Healing incisions x 4. PELVIC: external genitalia normal, normal Bartholin's glands, urethra, [place]'s glands, no vulvar lesions, good vaginal support, normal appearing perineal body and perianal region, abnormal discharge thick white BIMANUAL: no adnexal masses, non-tender and uterus surgically absent. RECTOVAGINAL: deferred. ASSESSMENT/PLAN: 1. Acute vaginitis - ICD9: 616.10, ICD10: N76.0 (primary diagnosis) - suspect yeast infection. - GC/CHLAMYDIA DNA DET - BACT/KINGSLEY VAG GRAM STAIN - TRICHOMONAS PREP - RAPID BV B/O - negative - FLUCONAZOLE 150 MG TABLET 2. Screen for STD (sexually transmitted disease) - ICD9: V74.5, ICD10: Z11.3 - SYPHILIS IGG WITH CONF - HEP B SURF AG SCRN - HCV QUANT RNA BY PCR - GC/CHLAMYDIA DNA DET - HIV 1,2 COMBO (AG/AB) - TRICHOMONAS PREP with very large patches of yeast to groin and inner thighs - encouraged pt to ask to see his PCP for treatment. Follow-up as needed. Cassie Clarke APRN.CNP CNOV Observed: 07/04/2018 Status: COMPLETED Source: [facility] 2:45 PM [facility] REPOSITORY Office Visit (WOOB) KAT ARITA ([id number]) 1975 F Date Time Provider Department 07/04/18 2:45 PM CASSIE CLARKE (REFINERY SUPERINTENDENT) WOOB During your visit today, we recorded the following information about you: Blood pressure Weight 120/80 76.7 kg Cassie Clarke APRN.CNP 07/04/2018 4:56 PM Signed Kat Arita is a 43 year old female who presents for vaginal pruritis for 2 days. Vaginal discharge: scant amount, thin and yellow. Slight fishy odor Itching: Yes Dyspareunia: YES from irritation Fever/chills: No Abdominal pain: Yes,lower aching/cramping Bladder: Negative for dysuria or frequency Bowel: No blood in stool, pain with BM, tarry stool, persistent diarrhea or constipation Any new sexual partners or concern for STD exposure: Yes, partner has been unfaithful in past Does your partner have any new complaints: Partner using powder for yeast infection in groin Are you currently taking any medications to treat vaginitis: No Do you use feminine sprays, douches or deodorants: No Menstrual cycle: hysterectomy Past medical, surgical, social history, medications and allergies reviewed and updated. OBJECTIVE: BP 120/80 Wt 169 lb 3.2 oz (76.7kg) LMP 04/07/2012 GENERAL: Well developed, well nourished in no apparent distress ABDOMEN: soft, non-tender and no masses. Healing incisions x 4. PELVIC: external genitalia normal, normal Bartholin's glands, urethra, [place]'s glands, no vulvar lesions, good vaginal support, normal appearing perineal body and perianal region, abnormal discharge thick white BIMANUAL: no adnexal masses, non-tender and uterus surgically absent. RECTOVAGINAL: deferred. ASSESSMENT/PLAN: 1. Acute vaginitis - ICD9: 616.10, ICD10: N76.0 (primary diagnosis) - suspect yeast infection. - GC/CHLAMYDIA DNA DET - BACT/KINGSLEY VAG GRAM STAIN - TRICHOMONAS PREP - RAPID BV B/O - negative - FLUCONAZOLE 150 MG TABLET 2. Screen for STD (sexually transmitted disease) - ICD9: V74.5, ICD10: Z11.3 - SYPHILIS IGG WITH CONF - HEP B SURF AG SCRN - HCV QUANT RNA BY PCR - GC/CHLAMYDIA DNA DET - HIV 1,2 COMBO (AG/AB) - TRICHOMONAS PREP with very large patches of yeast to groin and inner thighs - encouraged pt to ask to see his PCP for treatment. Follow-up as needed. Cassie Clarke APRN.PK Dc Ma 07/04/2018 4:56 PM Signed Would you like a refinery superintendent present for your visit today? No Tabby Dc Ma Referring Provider: SELF [200] Allergies As of Date: 07/04/2018 Noted Allergy Reaction IODINATED CONTRAST- ORAL AND IV D*02/24/2017 4 - Hives AUGMENTIN (AMOXICILLIN-POT CLAVUL*07/19/2005 4 - Hives BACTRIM (SULFAMETHOXAZOLE-TRIMETH*12/04/2015 4 - Hives 7 - Swelling CETIRIZINE 14 - Other: See Comments Comments: Other reaction(s): Palpitations Environmental allergies [Other] 06/14/2006 Comments: Dust mites, molds IBUPROFEN 12/04/2015 4 - Hives 7 - Swelling IV CONTRAST (IODINE) 12/04/2015 2 - Rash 7 - Swelling MACRODANTIN (NITROFURANTOIN MACRO*07/19/2005 4 - Hives NSAIDS (NON-STEROIDAL ANTI-INFLAM*12/04/2015 4 - Hives Comments: Is able to take Toradol - given after surgery 2017 with no allergic response PHENAZOPYRIDINE 7 - Swelling Comments: Other reaction(s): Hives PSEUDOEPHEDRINE HCL 14 - Other: See Comments Comments: Other reaction(s): Palpitations PYRIDIUM (PHENAZOPYRIDINE HCL) 03/21/2007 2 - Rash Date Reviewed: 07/04/2018 Reviewed by: Cassie Clarke - Fully Assessed Primary Visit Diagnosis:Acute vaginitis [N76.0] Other Visit Diagnosis:Screen for STD (sexually transmitted disease) [Z11.3] Order(s):SYPHILIS IGG WITH CONF [SQSYPHGX] Order #: [id number] FUTURE HEP B SURF AG SCRN [SQHBSAG] Order #: [id number] FUTURE HCV QUANT RNA BY PCR [SQHCQPCR] Order #: [id number] FUTURE GC/CHLAMYDIA DNA DET [SQGCCAMP] Order #: [id number]. #:[id number] HIV 1,2 COMBO (AG/AB) [SQHIV12] Order #: [id number] FUTURE BACT/KINGSLEY VAG GRAM STAIN [SQBVCNSM] Order #: [id number] FUTURE TRICHOMONAS PREP [SQTRICHO] Order #: [id number]. #:[id number] RAPID BV B/O [[id number]] Order #: [id number] Prescriptions as of 07/04/2018 Sig: TRIAMCINOLONE ACETONIDE 0.1 %* Apply 1 application to affect* HYDROXYZINE PAMOATE 25 MG CAP* Take 1 capsule by mouth three* EPINEPHRINE 0.3 MG/0.3 ML INJ* Inject 0.3 mL intramuscularly* PREDNISONE 10 MG TABLET Take 5 tablets by mouth once * SERTRALINE 100 MG TABLET Take 1 tablet by mouth once d* CLONAZEPAM 1 MG TABLET Take 1 tablet by mouth at bed* X FLUCONAZOLE 150 MG TABLET Take 1 tablet by mouth one ti* Problem List As Of Date 07/04/2018 Noted Resolved Severe episode of recurrent major depressive di*INVALID FOR* Generalized anxiety disorder [F41.1] INVALID FOR* ADJUSTMENT DISORDER WITH DEPRESSED MOOD [F43.21] 01/06/2007 Systemic lupus erythematosus (HCC) [M32.9] 12/29/2015 Fibromyalgia [M79.7] Palpitations [R00.2] INVALID FOR*12/29/2015 HYPOTHYROIDISM NOS [E03.9] INVALID FOR*01/06/2007 Other chronic cystitis [N30.20] INVALID FOR*12/29/2015 ALLERGIC RHINITIS NOS [J30.9] INVALID FOR* HYPERLIPIDEMIA NEC/NOS [E78.5] Thyroiditis, unspecified [E06.9] 12/29/2015 More... Acne Vulgaris: Grade IV Nodulocystic--scarring*INVALID FOR*12/29/2015 Scar Condition AND Fibrosis of Skin: acne: face*INVALID FOR* Sebaceous cyst [L72.3] INVALID FOR*12/29/2015 Dermatitis due to Unspec [L25.9] INVALID FOR*12/29/2015 Vitamin D deficiency [E55.9] INVALID FOR*12/29/2015 Tobacco abuse [Z72.0] INVALID FOR* Recurrent major depression in partial remission*INVALID FOR* Marital conflict [Z63.0] INVALID FOR* Panic disorder without agoraphobia [F41.0] INVALID FOR* Hx of Graves' disease [Z86.39] INVALID FOR* Impaired fasting glucose [R73.01] INVALID FOR* Uninodular goiter [E04.1] INVALID FOR* Thyroid nodule [E04.1] INVALID FOR* Prescriptions ordered this encounter Disp Refills Start End FLUCONAZOLE 150 MG TABLET 1 ta* 0 07/04/2018 07/06/2018 Route: ORAL Sig: Take 1 tablet by mouth one time only for 1 dose. Encounter Status:Closed by CASSIE CLARKE on 07/04/18 PROGRESS Observed: 07/02/2018 Status: COMPLETED Source: [facility] 11:38 AM [facility] REPOSITORY HNO ID: [id number] Author: Nora Atwood Service: (none) Author Type: Physician Type: Progress Notes Filed: 07/02/2018 11:41 AM Note Text: [facility]ED[facility]. June 19, 2018 Kat Jazmyne Arita 1975 [id number] female PROCEDURE: laparoscopic appendectomy - 55477-045, Laparoscopic Lysis of Adhesions - 40627 SURGEON: Heather Atwood M.D. FACS [employer] INSTALLER: None DEPT: WQ PROVIDER: [id number]=XapopeaNora Atwood MD POS: [id number] DIAGNOSIS: (R10.32, G89.29) Chronic LLQ pain (primary encounter diagnosis) (K66.0) Intestinal adhesions ASA CLASS: 2 - mild FINDINGS: COMPLICATIONS: None PMHx - PAST MEDICAL HISTORY Diagnosis Date - Acne Vulgaris: Grade IV Nodulocystic--scarring 08/28/2009 - Adjustment disorder with depressed mood - Allergic rhinitis, cause unspecified 03/02/2006 - Depressive disorder - Fibromyalgia - Myalgia and myositis, unspecified - Other and unspecified hyperlipidemia 2003 - Other chronic cystitis 09/20/2005 - Palpitations 07/19/2005 - Systemic lupus erythematosus (HCC) - Thyroid nodule - Thyroiditis, unspecified 2000 had PP thyroiditis / hyperthyroidism, treated with radioactive iodine, was on Synthroid for a while, but recent TSH's are normal off of meds - Tobacco abuse COMORBIDITIES - Smoking/Tobacco Post Op Occurrences - None Wound Classification - Clean Contaminated Operative note dictated in the [facility] dictation system. Nora Atwood MD CNOV Observed: 06/26/2018 Status: COMPLETED Source: [place] 2:00 PM [facility] REPOSITORY Office Visit (WOOB) KAT ARITA ([id number]) 1975 F Date Time Provider Department 06/26/18 2:00 PM SHELIA YANES During your visit today, we recorded the following information about you: Blood pressure Weight 128/70 78.5 kg Shelia Yanes MD 06/26/2018 2:23 PM Signed Post-op visit Kat Arita is a 43 year old female who underwent laprascopicLSO w/ extensive lysis of adhesions w/ general surgery and appendectomy on 06/19/18 Her immediate post-op course was uncomplicated and she was discharged home from [facility] on post-op day #0 Has had some sweats. NO fever. Sofy. regular diet. Pain improved and has one percocet. Took oral toradol but upset stomach. Feels percocet is too strong, has one left. Having BM but still feels bowels are sluggish, did have BM this am. Having some episodes of acute pelvic/vaginal pain randomly, last a few minutes and resolve Symptoms since surgery: Fever/chills: No. Vaginal bleeding: No. Operative findings: extensive adhesions, left ovarian cysts, complex Pathology: Benign, reviewed Reviewed and updated past medical, surgical, family, social history, medications and allergies. LMP 04/07/2012 GENERAL: pleasant, female in no apparent distress ABDOMEN: soft, appropriately tender, no hernia, no masses INCISIONS: clean, dry and intact., some bruising Assessment: 43 year old doing well s/p l/s LSO w/ WILDER- no evidence of endometriosis 1) Operative findings and pathology were reviewed with the patient and all questions were answered. Additional follow up or treatment indicated: none 2) Return for Annual exam or sooner as needed Didn't tolerate po toradol, made her nauseated. Tramadol prn alternate w/ tylenol MD Shelia Moeller MD 06/26/2018 4:21 PM Signed Addended by: SHELIA YANES MD on: 06/26/2018 04:21 PM Modules accepted: Orders Referring Provider: SELF [200] Allergies As of Date: 06/26/2018 Noted Allergy Reaction IODINATED CONTRAST- ORAL AND IV D*02/24/2017 4 - Hives AUGMENTIN (AMOXICILLIN-POT CLAVUL*07/19/2005 4 - Hives BACTRIM (SULFAMETHOXAZOLE-TRIMETH*12/04/2015 4 - Hives 7 - Swelling CETIRIZINE 14 - Other: See Comments Comments: Other reaction(s): Palpitations Environmental allergies [Other] 06/14/2006 Comments: Dust mites, molds IBUPROFEN 12/04/2015 4 - Hives 7 - Swelling IV CONTRAST (IODINE) 12/04/2015 2 - Rash 7 - Swelling MACRODANTIN (NITROFURANTOIN MACRO*07/19/2005 4 - Hives NSAIDS (NON-STEROIDAL ANTI-INFLAM*12/04/2015 4 - Hives Comments: Is able to take Toradol - given after surgery 2018 with no allergic response PHENAZOPYRIDINE 7 - Swelling Comments: Other reaction(s): Hives PSEUDOEPHEDRINE HCL 14 - Other: See Comments Comments: Other reaction(s): Palpitations PYRIDIUM (PHENAZOPYRIDINE HCL) 03/21/2007 2 - Rash Date Reviewed: 06/22/2018 Reviewed by: Cassie Clarke - Fully Assessed Reason for Visit: Post Op [174] Primary Visit Diagnosis:Postoperative visit [Z48.89] Other Visit Diagnoses:Postoperative pain [G89.18] Breast screening [Z12.31] Order(s):traMADol (ULTRAM) 50 mg tabletTake 1 tablet by mouth every 4 hours as needed for up to 5 days.Disp: 15 tabletRfl: 0 ENMA SCREENING [[id number]] Order #: [id number] FUTURE Prescriptions as of 06/26/2018 Sig: TRAMADOL 50 MG TABLET Take 1 tablet by mouth every * TRIAMCINOLONE ACETONIDE 0.1 %* Apply 1 application to affect* HYDROXYZINE PAMOATE 25 MG CAP* Take 1 capsule by mouth three* EPINEPHRINE 0.3 MG/0.3 ML INJ* Inject 0.3 mL intramuscularly* PREDNISONE 10 MG TABLET Take 5 tablets by mouth once * SERTRALINE 100 MG TABLET Take 1 tablet by mouth once d* CLONAZEPAM 1 MG TABLET Take 1 tablet by mouth at bed* Problem List As Of Date 06/26/2018 Noted Resolved Severe episode of recurrent major depressive di*INVALID FOR* Generalized anxiety disorder [F41.1] INVALID FOR* ADJUSTMENT DISORDER WITH DEPRESSED MOOD [F43.21] 01/06/2007 Systemic lupus erythematosus (HCC) [M32.9] 12/29/2015 Fibromyalgia [M79.7] Palpitations [R00.2] INVALID FOR*12/29/2015 HYPOTHYROIDISM NOS [E03.9] INVALID FOR*01/06/2007 Other chronic cystitis [N30.20] INVALID FOR*12/29/2015 ALLERGIC RHINITIS NOS [J30.9] INVALID FOR* HYPERLIPIDEMIA NEC/NOS [E78.5] Thyroiditis, unspecified [E06.9] 12/29/2015 More... Acne Vulgaris: Grade IV Nodulocystic--scarring*INVALID FOR*12/29/2015 Scar Condition AND Fibrosis of Skin: acne: face*INVALID FOR* Sebaceous cyst [L72.3] INVALID FOR*12/29/2015 Dermatitis due to Unspec [L25.9] INVALID FOR*12/29/2015 Vitamin D deficiency [E55.9] INVALID FOR*12/29/2015 Tobacco abuse [Z72.0] INVALID FOR* Recurrent major depression in partial remission*INVALID FOR* Marital conflict [Z63.0] INVALID FOR* Panic disorder without agoraphobia [F41.0] INVALID FOR* Hx of Graves' disease [Z86.39] INVALID FOR* Impaired fasting glucose [R73.01] INVALID FOR* Uninodular goiter [E04.1] INVALID FOR* Thyroid nodule [E04.1] INVALID FOR* Prescriptions ordered this encounter Disp Refills Start End TRAMADOL 50 MG TABLET 15 t* 0 06/26/2018 07/01/2018 Class: Print RX Route: ORAL Sig: Take 1 tablet by mouth every 4 hours as needed for up to 5 days. Medications Discontinued During This Encounter ketorolac (TORADOL) 10 mg tablet 15 t* 0 06/22/2018 06/26/2018 Route: ORAL Sig: Take 1 tablet by mouth every 8 hours. Disc: Reason for discontinue is not on file. Encounter Status:Closed by SHELIA YANES MD on 06/26/18 PROGRESS Observed: 06/26/2018 Status: COMPLETED Source: [place] 1:[address] [facility] REPOSITORY O ID: [id number] Author: Shelia Yanes Service: (none) Author Type: Physician Type: Progress Notes Filed: 06/26/2018 2:23 PM Note Text: Post-op visit Kat Arita is a 43 year old female who underwent laprascopicLSO w/ extensive lysis of adhesions w/ general surgery and appendectomy on 06/19/18 Her immediate post-op course was uncomplicated and she was discharged home from [facility] on post-op day #0 Has had some sweats. NO fever. Sofy. regular diet. Pain improved and has one percocet. Took oral toradol but upset stomach. Feels percocet is too strong, has one left. Having BM but still feels bowels are sluggish, did have BM this am. Having some episodes of acute pelvic/vaginal pain randomly, last a few minutes and resolve Symptoms since surgery: Fever/chills: No. Vaginal bleeding: No. Operative findings: extensive adhesions, left ovarian cysts, complex Pathology: Benign, reviewed Reviewed and updated past medical, surgical, family, social history, medications and allergies. LMP 04/07/2012 GENERAL: pleasant, female in no apparent distress ABDOMEN: soft, appropriately tender, no hernia, no masses INCISIONS: clean, dry and intact., some bruising Assessment: 43 year old doing well s/p l/s LSO w/ WILDER- no evidence of endometriosis 1) Operative findings and pathology were reviewed with the patient and all questions were answered. Additional follow up or treatment indicated: none 2) Return for Annual exam or sooner as needed Didn't tolerate po toradol, made her nauseated. Tramadol prn alternate w/ tylenol Shelia Yanes MD PROGRESS Observed: 06/23/2018 Status: COMPLETED Source: [place] 4:52 PM [facility] REPOSITORY HNO ID: [id number] Author: Shelia Yanes Service: (none) Author Type: Physician Type: Progress Notes Filed: 06/23/2018 4:59 PM Note Text: Patient underwent a laparoscopic extensive lysis of adhesions of the omentum off the anterior abdominal wall and colon off the pelvic sidewall, left ovary off the pelvic sidewall and appendectomy on 06/19/2018 for acute pelvic pain with complex left adnexal mass. She had an extensive amount of adhesions of her colon to her ovary and pelvic sidewall. General surgeon Dr. Atwood was called in intraoperatively to assist. He perform some of the lysis of adhesions in the appendectomy. I performed some of the lysis of adhesions and the oophorectomy on the left. Her right ovary was and what adhered to the pelvic sidewall and there were some colon adhesions near it also. However, it was left intact and appeared to be normal size overall. The pelvic washings were negative. The cyst fluid contained straw-colored and blood colored fluid. There is no gross blood. Pathology has returned benign and consistent with corpus luteum and had a hemorrhagic cyst. There were at least 2 separate cysts that were ruptured during the surgery. The tube was not separately identified but is present on the pathological specimen. Patient was discharged home the same day with routine instructions and prescriptions. Shelia Yanes MD CNOV Observed: 06/22/2018 Status: COMPLETED Source: [place] 4:30 PM [facility] REPOSITORY Office Visit (WOOB) KAT ARITA ([id number]) 1975 F Date Time Provider Department 06/22/18 4:30 PM CASSIE CLARKE (REFINERY SUPERINTENDENT) WOOB During your visit today, we recorded the following information about you: Temperature Blood pressure Weight 97.8 degrees 140/82 79.4 kg Cassie Clarke APRN.PK 06/22/2018 5:32 PM Signed SUBJECTIVE: 43 year old female presents for post-op exam. 06/19/18 - Laparoscopic left oophorectomy per Dr Lorenza Yanes with extensive lysis of adhesions and appendectomy per Dr Atwood. States has been having a hard time controlling pain, temperature 100.0 last pm and pain to umbilical incision. Taking Percocet every 4 hours as scheduled. OBJECTIVE: Incision: x 4 healing with surgical glue intact. Incision on right side with surrounding ecchymosis. No erythema or drainage. Abdomen: Soft and mild tenderness with palpation. PLAN: Toradol 10 mg every hours sent to pharmacy - Given Toradol IV post-op while still intubated with no allergic reaction. RTO Tuesday for scheduled appointment with Dr Yanes. I have reviewed and updated past medical and surgical history, medications and allergies. Cassie Clarke APRN.REFINERY SUPERINTENDENT Referring Provider: SELF [200] Allergies As of Date: 06/22/2018 Noted Allergy Reaction IODINATED CONTRAST- ORAL AND IV D*02/24/2017 4 - Hives AUGMENTIN (AMOXICILLIN-POT CLAVUL*07/19/2005 4 - Hives BACTRIM (SULFAMETHOXAZOLE-TRIMETH*12/04/2015 4 - Hives 7 - Swelling CETIRIZINE 14 - Other: See Comments Comments: Other reaction(s): Palpitations Environmental allergies [Other] 06/14/2006 Comments: Dust mites, molds IBUPROFEN 12/04/2015 4 - Hives 7 - Swelling IV CONTRAST (IODINE) 12/04/2015 2 - Rash 7 - Swelling MACRODANTIN (NITROFURANTOIN MACRO*07/19/2005 4 - Hives NSAIDS (NON-STEROIDAL ANTI-INFLAM*12/04/2015 4 - Hives Comments: Is able to take Toradol - given after surgery 2018 with no allergic response PHENAZOPYRIDINE 7 - Swelling Comments: Other reaction(s): Hives PSEUDOEPHEDRINE HCL 14 - Other: See Comments Comments: Other reaction(s): Palpitations PYRIDIUM (PHENAZOPYRIDINE HCL) 03/21/2007 2 - Rash Date Reviewed: 06/22/2018 Reviewed by: Cassie Clarke - Fully Assessed Primary Visit Diagnosis:Post-operative state [Z98.890] Order(s):ketorolac (TORADOL) 10 mg tabletTake 1 tablet by mouth every 8 hours.Disp: 15 tabletRfl: 0 Prescriptions as of 06/22/2018 Sig: TRIAMCINOLONE ACETONIDE 0.1 %* Apply 1 application to affect* HYDROXYZINE PAMOATE 25 MG CAP* Take 1 capsule by mouth three* EPINEPHRINE 0.3 MG/0.3 ML INJ* Inject 0.3 mL intramuscularly* PREDNISONE 10 MG TABLET Take 5 tablets by mouth once * SERTRALINE 100 MG TABLET Take 1 tablet by mouth once d* CLONAZEPAM 1 MG TABLET Take 1 tablet by mouth at bed* KETOROLAC 10 MG TABLET Take 1 tablet by mouth every * Problem List As Of Date 06/22/2018 Noted Resolved Severe episode of recurrent major depressive di*INVALID FOR* Generalized anxiety disorder [F41.1] INVALID FOR* ADJUSTMENT DISORDER WITH DEPRESSED MOOD [F43.21] 01/06/2007 Systemic lupus erythematosus (HCC) [M32.9] 12/29/2015 Fibromyalgia [M79.7] Palpitations [R00.2] INVALID FOR*12/29/2015 HYPOTHYROIDISM NOS [E03.9] INVALID FOR*01/06/2007 Other chronic cystitis [N30.20] INVALID FOR*12/29/2015 ALLERGIC RHINITIS NOS [J30.9] INVALID FOR* HYPERLIPIDEMIA NEC/NOS [E78.5] Thyroiditis, unspecified [E06.9] 12/29/2015 More... Acne Vulgaris: Grade IV Nodulocystic--scarring*INVALID FOR*12/29/2015 Scar Condition AND Fibrosis of Skin: acne: face*INVALID FOR* Sebaceous cyst [L72.3] INVALID FOR*12/29/2015 Dermatitis due to Unspec [L25.9] INVALID FOR*12/29/2015 Vitamin D deficiency [E55.9] INVALID FOR*12/29/2015 Tobacco abuse [Z72.0] INVALID FOR* Recurrent major depression in partial remission*INVALID FOR* Marital conflict [Z63.0] INVALID FOR* Panic disorder without agoraphobia [F41.0] INVALID FOR* Hx of Graves' disease [Z86.39] INVALID FOR* Impaired fasting glucose [R73.01] INVALID FOR* Uninodular goiter [E04.1] INVALID FOR* Thyroid nodule [E04.1] INVALID FOR* Prescriptions ordered this encounter Disp Refills Start End KETOROLAC 10 MG TABLET 15 t* 0 06/22/2018 Route: ORAL Sig: Take 1 tablet by mouth every 8 hours. Encounter Status:Closed by CASSIE CLARKE on 06/22/18 PROGRESS Observed: 06/22/2018 Status: COMPLETED Source: [place] 3:57 PM [facility] HNO ID: [id number] Author: Cassie (Pk) Deepa Service: (none) Author Type: Nurse Practitioner Type: Progress Notes Filed: 06/22/2018 5:32 PM Note Text: SUBJECTIVE: 43 year old female presents for post-op exam. 06/19/18 - Laparoscopic left oophorectomy per Dr Lorenza Yanes with extensive lysis of adhesions and appendectomy per Dr Atwood. States has been having a hard time controlling pain, temperature 100.0 last pm and pain to umbilical incision. Taking Percocet every 4 hours as scheduled. OBJECTIVE: Incision: x 4 healing with surgical glue intact. Incision on right side with surrounding ecchymosis. No erythema or drainage. Abdomen: Soft and mild tenderness with palpation. PLAN: Toradol 10 mg every hours sent to pharmacy - Given Toradol IV post-op while still intubated with no allergic reaction. RTO Tuesday for scheduled appointment with Dr Yanes. I have reviewed and updated past medical and surgical history, medications and allergies. Cassie Clarke APRN.REFINERY SUPERINTENDENT OPERATIVE REPORT Observed: 06/22/2018 Status: F Source: [place] 1:00 PM [facility] Medical Records Department [address] [place] [address] Operative Report 06/19/18 1454 MR#: [id number] Acct: [id number] Name: KAT ARITA Rep #: [id number] : 1975 43 From: Shelia Yanes MD PCP: Antonino Billy MD Status: DIS REILLY Y [place] [facility] [id number] Report of Operation Date of Procedure: 06/19/18 Pre-Operative Diagnosis: Acute left lower quadrant pain, complex left ovarian cyst, extensive adhesions of the omentum to the anterior abdominal wall, the bowel and ovary to the pelvic sidewalls and vaginal cuff, adhesions of the mesosalpinx and appendix to the right pelvic sidewall Post-Operative Diagnosis: same Surgery/Procedure Performed:: Laparoscopic left oophorectomy with extensive lysis of adhesions (Dr. Atwood performed lysis of adhesions and appendectomy, see his note) Description of Surgical Findings:: Large amount of adhesions of the omentum to the anterior abdominal wall. Extensive adhesions of the colon to both the right and left pelvic sidewalls as well as the vaginal cuff. Left ovary was enlarged with 2 simple appearing cysts. It was adhered to the left pelvic sidewall and the colon. The right ovary was able to be visualized and appeared normal but adhered to the right pelvic sidewall and was somewhat adhesed to the colon. It was not dissected off the pelvic sidewall because it appeared normal and I do not want a risk of bleeding and needing to remove it. The appendix was adhered to the right pelvic sidewall and taut with some epiploica adhered over it. Normal-appearing upper abdomen. instrument fitter: Nora Atwood instrument fitter: Susy Murillo Type of Anesthesia:: General Anesthesiologist: Ligia Hansen Special Medications: none Specimen's removed: left ovary, appendix, ovarian cyst fluid Drains: none Estimated Blood Loss (mL): 30cc Fluids Replaced: 1500 cc LR Description of Procedure: The patient was taken the operating room where she is prepped and draped in dorsal lithotomy position. A sponge stick was placed in the vagina and her bladder was drained. A 5 mm incision was made proximally 3 cm above the umbilicus. Entry here was chosen because of her previous umbilical hernia repair. The skin incisions were all infiltrated with Marcaine before skin incisions were made. A 5 mm blade less trocar and sleeve were advanced directly the peritoneal cavity while tenting up the anterior abdominal wall with towel clips. Intraperitoneal placement was confirmed with the laparoscope. Pneumoperitoneum was created and the underlying abdominal contents were intact. The large amount of adhesions was noted but we are able to find a clear spot on the right and left lateral sidewalls to place 5 mm trochars. Using EndoShears and blunt dissection the omentum was taken down off the anterior abdominal wall. At this point, I cannot even identify the left or right ovary. We manipulated some of the adhesions and bowel gently with some blunt and sharp dissection and were able to visualize the right ovary but did not dissected out. It appeared normal. I then began dissecting the sigmoid colon off the left pelvic sidewall and away from the left ovary. I still could not identify discretely a left ovary or mass. After dissecting for approximately 45 minutes, I did not feel comfortable proceeding with the dissection of the bowel and ask for general surgery intraoperative consultation. Dr. Ramírez then came in and proceeded with his portion of the case. After he dissected down to the cyst, while grasping the cyst and dissecting off the bowel and pelvic sidewall there were 2 separate cyst that ruptured with clear straw-colored fluid. The fluid was collected for cytology. With care the ovary was dissected off the pelvic sidewall. At this point, after another hours worth of dissection the majority of the ovary and ovarian cyst was followed down to the infundibulopelvic ligament. Clamped across the ligament removing as much of the ovary as possible. The tube may have been in this mass, it was not difficult discretely identified. The harmonic scalpel was used to clamp seal and transect the ovary from the pedicle. The pedicle was hemostatic. Dr. Ramírez then performed the appendectomy. At the end of the procedure, the suction library clerk was used to irrigated out any blood and clots and the pedicles were hemostatic. Dr. Ramírez had converted the midline port to a 10 mm and placed another 5mm port approximately fdc between the umbilicus and the pubic symphysis. The 10 mm port site fascia was closed with PDS suture by Dr. Ramírez. I then released the pneumoperitoneum and release the 5 mm ports. The skin incisions were all closed by me with Monocryl suture in a subcuticular fashion and skin glue was placed over them. The vaginal instruments were removed and a vaginal sweep was completed by me. The patient was awakened and taken to the recovery room in stable condition. Grafts/Implants Used: none - Complications none - Admit VTE Documentation VTE Present on Admission: No VTE Mechan Device Prophylaxis: SCD's VTE Pharm Prophylaxis ordered?: No Reason prophylaxis not ordered:: Procedure Not Indicated 06/22/18 1300 <Electronically signed by Shelia Yanes MD> Date Shelia Yanes MD CC: Antonino Billy MD; Shelia Yanes MD Signed PROGRESS Observed: 06/21/2018 Status: COMPLETED Source: [place] 10:47 AM [facility] REPOSITORY HNO ID: [id number] Author: January Collins LPN Service: (none) Author Type: (none) Type: Progress Notes Filed: 06/21/2018 10:47 AM Note Text: Unable to reach pt, no answer/no voicemail. PROGRESS Observed: 06/20/2018 Status: COMPLETED Source: [place] 3:26 PM [facility] REPOSITORY HNO ID: [id number] Author: Dhruv Billy Service: (none) Author Type: Physician Type: Progress Notes Filed: 06/20/2018 3:27 PM Note Text: Reviewed. Will f/u on 06/28 as scheduled. Continue colace and add miralax daily to BID OTC for constipation. PROGRESS Observed: 06/20/2018 Status: COMPLETED Source: [place] 2:12 PM [facility] REPOSITORY HNO ID: [id number] Author: Danelle Timmons) RORY Robledo Service: (none) Author Type: LICENSED NURSE Type: Progress Notes Filed: 06/26/2018 10:46 AM Note Text: TRANSITION CARE MANAGEMENT (TCM) INITIAL CONTACT Reconciliation Manager Outreach Provider Action/FYI: Pt has no issues at this time other than no b/m since 06/17 is taking colace. Initial contact with patient post discharge, spoke to patient. Patient identified by name and . TRANSITION CARE MANAGEMENT INITIAL OUTREACH DOCUMENTATION: Date of Outreach: 06/20/2018 Date of Discharge 06/19/2018 Some recent data might be hidden SUMMARY: -Pt discharged from [facility] on 06/19/18. -Admitted for: adnexal mass Do you have a hospital follow up appointment with your PCP? Appointment on 06/28/18 with 10:40. Yes. Remind patient of appointment date, time, and location. If not within 14 calendar days of discharge - please reschedule accordingly. MEDICATIONS: Many patients have questions or concerns about their medications once they are home. Were you prescribed any new medications? Yes Percocet n5-325mg , zofran Were you told to hold any medications? No Were any of your medications discontinued? No Do you have any questions about getting or taking your medications? No Your discharge instructions/After visit Summary (AVS) are important in guiding you through the recovery process. Is there anything I might help you understand? No Do you have all the necessary equipment and supplies at home? Yes Medical records from recent hospitalization: Receive from [facility] . WILD Observed: 06/20/2018 Status: COMPLETED Source: [place] 12:00 AM [facility] REPOSITORY Patient Outreach (FAMPWS) KAT ARITA ([id number]) 1975 F Date Time Provider Department 06/20/18 DANELLE ROBLEDO (RORY) ROSEWS During your visit today, we recorded the following information about you: Danelle Robledo LPN, RORY 06/26/2018 10:46 AM Signed TRANSITION CARE MANAGEMENT (TCM) INITIAL CONTACT Reconciliation Manager Outreach Provider Action/FYI: Pt has no issues at this time other than no b/m since 06/17 is taking colace. Initial contact with patient post discharge, spoke to patient. Patient identified by name and . TRANSITION CARE MANAGEMENT INITIAL OUTREACH DOCUMENTATION: Date of Outreach: 06/20/2018 Date of Discharge 06/19/2018 Some recent data might be hidden SUMMARY: -Pt discharged from [facility] on 06/19/18. -Admitted for: adnexal mass Do you have a hospital follow up appointment with your PCP? Appointment on 06/28/18 with 10:40. Yes. Remind patient of appointment date, time, and location. If not within 14 calendar days of discharge - please reschedule accordingly. MEDICATIONS: Many patients have questions or concerns about their medications once they are home. Were you prescribed any new medications? Yes Percocet n5-325mg , zofran Were you told to hold any medications? No Were any of your medications discontinued? No Do you have any questions about getting or taking your medications? No Your discharge instructions/After visit Summary (AVS) are important in guiding you through the recovery process. Is there anything I might help you understand? No Do you have all the necessary equipment and supplies at home? Yes Medical records from recent hospitalization: Receive from [facility] . Dhruv Billy MD 06/20/2018 3:27 PM Addendum Reviewed. Will f/u on 06/28 as scheduled. Continue colace and add miralax daily to BID OTC for constipation. January Collins LPN 06/21/2018 10:47 AM Signed Unable to reach pt, no answer/no voicemail. Allergies As of Date: 06/20/2018 Noted Allergy Reaction IODINATED CONTRAST- ORAL AND IV D*02/24/2017 4 - Hives AUGMENTIN (AMOXICILLIN-POT CLAVUL*07/19/2005 4 - Hives BACTRIM (SULFAMETHOXAZOLE-TRIMETH*12/04/2015 4 - Hives 7 - Swelling CETIRIZINE 14 - Other: See Comments Comments: Other reaction(s): Palpitations Environmental allergies [Other] 06/14/2006 Comments: Dust mites, molds IBUPROFEN 12/04/2015 4 - Hives 7 - Swelling IV CONTRAST (IODINE) 12/04/2015 2 - Rash 7 - Swelling MACRODANTIN (NITROFURANTOIN MACRO*07/19/2005 4 - Hives NSAIDS (NON-STEROIDAL ANTI-INFLAM*12/04/2015 4 - Hives PHENAZOPYRIDINE 7 - Swelling Comments: Other reaction(s): Hives PSEUDOEPHEDRINE HCL 14 - Other: See Comments Comments: Other reaction(s): Palpitations PYRIDIUM (PHENAZOPYRIDINE HCL) 03/21/2007 2 - Rash Date Reviewed: 05/29/2018 Reviewed by: Danelle Perez (Rory) RORY Robledo - Fully Assessed Reason for Visit: Transition Of Care [4074] Prescriptions as of 06/20/2018 Sig: TRIAMCINOLONE ACETONIDE 0.1 %* Apply 1 application to affect* HYDROXYZINE PAMOATE 25 MG CAP* Take 1 capsule by mouth three* EPINEPHRINE 0.3 MG/0.3 ML INJ* Inject 0.3 mL intramuscularly* PREDNISONE 10 MG TABLET Take 5 tablets by mouth once * SERTRALINE 100 MG TABLET Take 1 tablet by mouth once d* CLONAZEPAM 1 MG TABLET Take 1 tablet by mouth at bed* Problem List As Of Date 06/20/2018 Noted Resolved Severe episode of recurrent major depressive di*INVALID FOR* Generalized anxiety disorder [F41.1] INVALID FOR* ADJUSTMENT DISORDER WITH DEPRESSED MOOD [F43.21] 01/06/2007 Systemic lupus erythematosus (HCC) [M32.9] 12/29/2015 Fibromyalgia [M79.7] Palpitations [R00.2] INVALID FOR*12/29/2015 HYPOTHYROIDISM NOS [E03.9] INVALID FOR*01/06/2007 Other chronic cystitis [N30.20] INVALID FOR*12/29/2015 ALLERGIC RHINITIS NOS [J30.9] INVALID FOR* HYPERLIPIDEMIA NEC/NOS [E78.5] Thyroiditis, unspecified [E06.9] 12/29/2015 More... Acne Vulgaris: Grade IV Nodulocystic--scarring*INVALID FOR*12/29/2015 Scar Condition AND Fibrosis of Skin: acne: face*INVALID FOR* Sebaceous cyst [L72.3] INVALID FOR*12/29/2015 Dermatitis due to Unspec [L25.9] INVALID FOR*12/29/2015 Vitamin D deficiency [E55.9] INVALID FOR*12/29/2015 Tobacco abuse [Z72.0] INVALID FOR* Recurrent major depression in partial remission*INVALID FOR* Marital conflict [Z63.0] INVALID FOR* Panic disorder without agoraphobia [F41.0] INVALID FOR* Hx of Graves' disease [Z86.39] INVALID FOR* Impaired fasting glucose [R73.01] INVALID FOR* Uninodular goiter [E04.1] INVALID FOR* Thyroid nodule [E04.1] INVALID FOR* Encounter Status:Closed by SIS ASHLEY MA on 06/26/18 OPERATIVE REPORT Observed: 06/19/2018 Status: F Source: [place] 9:46 PM [facility] Medical Records Department [address] [place] [address] Operative Report 06/19/18 214 MR#: [id number] Acct: [id number] Name: KAT ARITA Rep #: [id number] : 1975 43 From: Nora Atwood MD PCP: Antonino Billy MD Status: DIS REILLY Y Location: [place] [address] Report of Operation Date of Procedure: 06/19/18 Pre-Operative Diagnosis: Acute left lower quadrant pain, complex left ovarian cyst, extensive adhesions of the omentum to the anterior abdominal wall, the bowel and ovary to the pelvic sidewalls and vaginal cuff, adhesions of the mesosalpinx and appendix to the right pelvic sidewall Post-Operative Diagnosis: same Surgery/Procedure Performed:: Laparoscopic left oophorectomy with extensive lysis of adhesions (Dr. Atwood performed lysis of adhesions and appendectomy, see his note) instrument fitter: Shelia Yanes instrument fitter: Susy Murillo Type of Anesthesia:: General Anesthesiologist: Ligia Hansen Special Medications: none Specimen's removed: left ovary, appendix, ovarian cyst fluid Drains: none Estimated Blood Loss (mL): 30cc Fluids Replaced: 1500 cc LR Description of Procedure: I was consulted intraoperatively by Dr. Yanes for significant adhesions to the left lower quadrant for a patient taken for a left pelvic pain and a larger left ovarian cyst. patient undergone a previous hysterectomy but had 2 ER visits recently for pelvic pain and was noted to have a larger left presumed ovarian cyst for which Dr. Yanes was present for planned left nephrectomy. Sigmoid adhesions to the left lateral sidewall and pelvis were dense enough that the tube and ovarian structures were not visualized. Additionally with the patient's recurring pain we discussed the plan for appendectomy as there were adhesions to the appendix on the right pelvic sidewall and if she had persistent chronic pelvic pain then remove the appendix would prevent diagnostic tumors in the future.. There were 35 and reports are replaced the supraumbilical port was upsized to a 10 mm port and an additional 5 port was placed in the lower midline extensive lysis of adhesions encompassing approximately 45 minutes of dissection time was undertaking freeing the sigmoid colon off the Lateral sidewall and being ill to mobilize and demonstrate the left ovary and larger cystic structure the colon and colonic mesentery and lateral pelvic structures were dissected so that the Francisco structures could be addressed by Dr. Yanes. Dissection was performed both sharply locally using Metzenbaum scissors and harmonic scalpel. Once this was completed with good hemostasis the appendix was freed up from its adhesions in the right lower quadrant as was the mesoappendix the mesoappendix was then sequentially divided using a Harmonic scalpel and the appendix transected using the intestinal load Endo SYMONE stapler. The appendix was placed in her back and remove the supraumbilical 10 port site fundus 0 PDS figure 8 sutures placed on the 10 mm site to prevent future herniation. Dr. Yanes completed the case. 06/19/182145 <Electronically signed by Nora Atwood MD> Date Nora Atwood MD CC: Antonino Billy MD; Nora Atwood MD Signed DISCHARGE INSTRUCTION Observed: 06/19/2018 Status: F Source: [place] 2:54 PM [facility] Medical Records Department [address] [place] [address] Instructions for Home/Discharge Instructions 06/19/18 1452 MR#: [id number] Acct: [id number] Name: ETIENNE ARITASHAY Samano Rep #: [id number] : 1975 43 From: Shelia Yanes MD PCP: Antonino Billy MD Status: ADM REILLY Discharge Diet: No Restrictions - Increase fluid intake for the next 48 hours. Eat lightly for 2-3 days and until you have a bowel movement Discharge Activity: Return to Normal Activity, May Drive - when you are no longer taking pain/narcotic meds., May Shower, May Take a Tub Bath - in 7 days Return to work on:: 07/03/18 May shower in (days): 1 May resume sexual activity in: 1 week Additional Activity Instructions:: Ambulate often the next week after surgery. Nothing in the vagina for 5 days. Call your doctor if your incision/area has: Continuous Slow Oozing, Sudden Increased Bleeding, Increased Pain/ Swelling, Increased Redness, Foul Smelling Discharge Call your doctor if you observe: Fever of 101 or Higher, Inability to have a bowel movement, Uncontrolled pain Cleanse incision/area with: Soap AND Water, - - Your incisions have skin glue, they can get wet Instructions: ED Cyst Ovarian Allergies/Adverse Reactions: Allergies amoxicillin trihydrate [From Augmentin] Allergy (Verified 06/19/18 01:58) Hives Gadolinium-MRI Contrast Medium [DYE] Allergy (Verified 06/19/18 01:58) Swelling ibuprofen Allergy (Verified 06/19/18 01:58) Hives Iodinated Contrast- Oral and IV Dye [DYEE] Allergy (Verified 06/19/18 01:58) Swelling ketorolac [From Toradol] Allergy (Verified 06/19/18 01:58) Hives nitrofurantoin macrocrystalline [From Macrodantin] Allergy (Verified 06/19/18 01:58) Hives NSAIDS (Non-Steroidal Anti-Inflamma Allergy (Verified 06/19/18 01:58) Hives potassium clavulanate [From Augmentin] Allergy (Verified 06/19/18 01:58) Hives sulfamethoxazole [From Bactrim] Allergy (Verified 06/19/18 01:58) Hives trimethoprim [From Bactrim] Allergy (Verified 06/19/18 01:58) Hives STERI-STRIPS Allergy (Uncoded 06/19/18 01:58) Other Medications to take at Discharge Sertraline HCl [Zoloft] 100 mg PO DAILY 01/26/18 Clonazepam [Klonopin] 1 mg PO DAILY PRN 06/19/18 Docusate Sodium [Colace] 100 mg PO BID PRN PRN #60 capsule 06/19/18 Ondansetron HCl [Zofran] 8 mg PO Q8 PRN #12 tablet 06/19/18 Oxycodone HCl/Acetaminophen [Percocet 5-325] 1 - 2 tablet PO Q8 PRN 7 Days #28 tablet 06/19/18 The following prescriptions were given: Docusate Sodium [Colace] 100 mg PO BID PRN PRN #60 capsule PRN Reason: Constipation Ondansetron HCl [Zofran] 8 mg PO Q8 PRN #12 tablet PRN Reason: Nausea Oxycodone HCl/Acetaminophen [Percocet 5-325] 1 - 2 tablet PO Q8 PRN 7 Days #28 tablet PRN Reason: Moderate-Severe pain Primary Care Physician: Antonino Billy MD [Primary Care Provider] - Shelia Yanes MD [STAFF PHYSICIAN] - Test Results: Test results from this visit will be discussed in further detail at your follow-up appointment, if applicable. Please Follow Up With: Shelia Yanes MD - [phone] When: 2 weeks or as needed Please Follow Up With: Nora Atwood MD - [phone] When: call his office to schedule 06/19/18 3709 <Electronically signed by Shelia Yanes MD> Date Shelia Yanes MD CC: Antonino Billy MD CYTOLOGY, BODY FLUID / Collected: 06/19/2018 Status: F Source: [place] CSF 1:52 PM [facility] Order Comment: Comments: LEFT OVARIAN CYST CONTENTS FOR CYTOLOGY TYPE CODE TESTS RESULT OUT OF RANGE REFERENCE UNITS LAB L350.1000 SEE Normal PATHOLOGY CYTOLOGY,BF REPORT /CSF Result Comment: Specimen submitted to Anatomical Pathology Department for testing. Performed By: #### L350.1000 #### [facility] [address] [place], [address] HISTORY AND PHYSICAL Observed: 06/19/2018 Status: F Source: [place] EXAM 12:43 PM [facility] Medical Records Department [address] [facility] [place] [address] History and Physical 06/19/18 1231 MR#: [id number] Acct: [id number] Name: KAT ARITA Rep #: [id number] : 1975 43 From: Shelia Yanes MD PCP: Antonino Billy MD Status: ADM REILLY Y Location: [place] [id number] History of Present Illness Date of Admission: 06/19/18 Chief Complaint: LLQ pain 43-year-old patient presents today with acute onset of left lower quadrant pain for 2 days. She states that sharp and stabbing. It increases and decreases in intensity. It is limiting her activities. It is so intense is making her feel nauseous. Vicodin did not take away her pain completely. She states she has not had pain like this before. She has a remote history of ovarian cyst but nothing in the last few years. She has a history of a total abdominal hysterectomy approximately 4 years ago. She does not have menses because of this. She denies any fevers or chills. She states the pain radiates to her back somewhat and down into her vaginal area. She denies any vaginal bleeding. Past medical history is significant for goiter, Graves' disease, seasonal allergies, fibromyalgia, depression and anxiety, tobacco use disorder Past surgical history is significant for 3 C-sections the last one with a tubal, tonsillectomy with adenoidectomy, CALVIN approximately 4 years ago in the upper port at that time revealed extensive adhesions especially around the left ovary. Past Medical History Allergies amoxicillin trihydrate [From Augmentin] Allergy (Verified 06/19/18 01:58) Hives Gadolinium-MRI Contrast Medium [DYE] Allergy (Verified 06/19/18 01:58) Swelling ibuprofen Allergy (Verified 06/19/18 01:58) Hives Iodinated Contrast- Oral and IV Dye [DYEE] Allergy (Verified 06/19/18 01:58) Swelling ketorolac [From Toradol] Allergy (Verified 06/19/18 01:58) Hives nitrofurantoin macrocrystalline [From Macrodantin] Allergy (Verified 06/19/18 01:58) Hives NSAIDS (Non-Steroidal Anti-Inflamma Allergy (Verified 06/19/18 01:58) Hives potassium clavulanate [From Augmentin] Allergy (Verified 06/19/18 01:58) Hives sulfamethoxazole [From Bactrim] Allergy (Verified 06/19/18 01:58) Hives trimethoprim [From Bactrim] Allergy (Verified 06/19/18 01:58) Hives STERI-STRIPS Allergy (Uncoded 06/19/18 01:58) Other Home Medications: Ambulatory Orders Medication Instructions Recorded Sertraline HCl [Zoloft] 100 mg PO DAILY 01/26/18 Clonazepam [Klonopin] 1 mg PO DAILY PRN 06/19/18 Smoking Status: Current every day smoker Review of Systems Constitutional: Reports: Anorexia, Malaise. Denies: Chills, Weight Change Cardiovascular: Denies: Chest Pain, Chest Tightness, Edema Respiratory: Denies: Cough, Shortness of Breath Gastrointestinal: Reports: Abdominal Pain, Nausea. Denies: Constipation, Diarrhea, Vomiting Genitourinary: Denies: Dysuria, Frequency, Hematuria Gynecological: Denies: Vaginal bleeding, Vaginal discharge, Vaginal itching Skin: Denies: Rash Neurological: Denies: Blurred vision, Change in Speech, Headaches Psychiatric: Reports: Anxiety, Depression Hematologic/ Lymphatic: Denies: Anemia, Easy Bruising, Easy Bleeding, Hx of blood clot VTE Information - Inpt Only VTE Present on Admission: No VTE Mechan Device Prophylaxis: SCD's VTE Pharm Prophylaxis ordered?: No Reason prophylaxis not ordered:: Treatment Not Indicated - Physical Exam General: Alert, Cooperative, No apparent distress HEENT: Atraumatic, PERRLA Neck: Supple Lungs: Clear to auscultation, No rhonchi, No wheeze, No rales Cardiovascular: Regular rate, Regular Rhythm Abdomen: Soft, Distended - moderately, Obese, Guarding, Tender - moderately, - - pain worse LLQ Exam: Normal mons pubis, normal labia majora and minora. Normal hair distribution pattern. Normal introitus and perineum. Normal urethra and anus. Vagina with pink moist mucous membranes and normal rugae and physiological discharge. Cervix and uterus are surgically absent. Moderate tenderness in the left lower quadrant with a fullness that not well-defined. Right lower quadrant adnexal area is less tender but still mildly tender. Extremities: No clubbing, No edema Skin: No rashes Psych/Mental Status: Normal Affect, Appropriate Comment: GEAR FINISHER exam: Normal mons pubis, normal labia majora and minora. Normal vagina Vital Signs Temp Pulse Resp BP Pulse Ox 98.4 F 68 14 106/58 L 99 06/19/18 09:19 06/19/18 11:08 06/19/18 11:08 06/19/18 11:08 06/19/18 11:08 Oxygen Delivery Method Room Air Weight: 78.188 kg Body Mass Index (BMI) 30.5 Laboratory Tests Past 24 Hrs WBC 10.0 RBC 4.42 Hgb 14.5 Hct 42.8 MCV 96.8 MCH 32.8 H MCHC 33.9 WBC RBC Hgb Hct MCV MCH MCHC Assessment/Plan 43-year-old female status post hysterectomy now with complex left adnexal mass. Acute left lower quadrant pain. Patient's been to the emergency room twice in the past 3 days. I discussed with the patient risk benefits and alternatives to diagnostic laparoscopy with possible left oophorectomy. We discussed possible need to conversion to open laparotomy depending on adhesions and size of the mass. We also discussed small chance that this may be a malignancy. If I am highly suspicious of malignancy upon entry with laparoscope would close her and send her to [facility] oncology. The patient's questions were answered to her satisfaction consent was signed. And she desires to proceed. She will be observed on the floor for pain control and kept n.p.o. until surgery. 06/19/18 1243 <Electronically signed by Shelia Yanes MD> Date Shelia Ynaes MD Cosign Signature: Date (if applicable) CC: Antonino Billy MD; Shelia Yanes MD Signed FLUID/WASHING Observed: 06/19/2018 Status: F Source: [place] 11:10 AM [facility] Patient: KAT ARITA : 1975 (43/F) Acct Num: [id number] Phys: Eder MELGAR,Shelia Unit Num: [id number] Loc: MS2 [id number] Specimen: [id number] Received: 06/20/18 - 1149 Spec Type: Fluid TISSUES 1 TISSUES: OVARIAN CYST COMMENT Please correlate with corresponding surgical specimen ([id number]). CYTOLOGY GROSS Received is 20 ml of dark red cloudy fluid with tissue fragments labeled with the patient's name and and designated per the requisition as cyst. Submitted for cytology preparation including cell block. / 06/20/18 TC:5 CPT: 10830, 55929 CYTOLOGY STUDY Slides are reviewed. DIAGNOSIS CYTOLOGY Cyst fluid for cytology (cytospin and cell block): Negative for malignant cells. Paucicellular and bloody specimen. SJ:jesus 06/21/18 HEADER OPERATION: Laparoscopic left oophorectomy with extensive lysis of adhesions PRE-OP DIAGNOSIS: Left adnexal mass, left lower quadrant pain TISSUE SUBMITTED: Cyst fluid for cytology Signed Obey Fosterin 06/21/18 <signature on file> Performed By: #### PFLU #### [facility] [address] [place], [address] OVARY (CHOOSE SIDE) Observed: 06/19/2018 Status: F Source: [place] 11:10 AM [facility] Patient: KAT ARITA : 1975 (43/F) Acct Num: [id number] Phys: Eder MELGAR,Shelia Unit Num: [id number] Loc: MS2 [id number] Specimen: [id number] Received: 06/20/18 - 1150 Spec Type: OVARY TISSUES 1 TISSUES: A. Left ovary B. Appendix, NOS GROSS DESCRIPTION A - Received in fixative is one container labeled with the patient's name and designated left ovary. The specimen consists of a soft to cystic ovary weighing 18 gm and measuring 5 x 3.5 x 2 cm. The outer surface is smooth and is inked black. Sections reveal a collapsed cyst with smooth lining measuring 3 cm in greatest dimension and also multiple cysts filled with clear to hemorrhagic fluid. The large cyst measures 0.5 cm in greatest dimension. Order Checker sections are submitted in two cassettes. B - Received is one container labeled with the patient's name and designated appendix. The specimen consists of a C-shaped appendix measuring 5.5 cm in length and up to 0.5 cm in diameter. The attached periappendiceal adipose tissue measures up to 3 cm in width. The serosal surface is waite, glistening. No obvious perforation is identified. The lumen is pin point. No fecalith is identified. Sections of the periappendiceal adipose tissue do not reveal any obvious mass lesions. The entire appendix is submitted in two cassettes as follows: 1 - tip and proximal portion, 2 - rest of the appendix. / ALEKSANDR:jesus TC:5 CPT: 45457, 51642 HEADER OPERATION: Laparoscopic left oophorectomy with extensive lysis of adhesion PRE-OP DIAGNOSIS: Left adnexal mass, left lower quadrant pain TISSUE SUBMITTED: A - Left ovary, B - Appendix MICROSCOPIC DESCRIPTION Slides are reviewed. MICROSCOPIC DIAGNOSIS A. Left ovary, oophorectomy: A collapsed hemorrhagic cyst, favor physiologic follicular cyst. Adherent portion of fallopian tube, no pathologic diagnosis. B. Appendix: Appendix with luminal obliteration, no pathologic diagnosis. SJ:jesus 06/21/18 Signed Obey Guerrero 06/21/18 <signature on file> Performed By: #### POV #### [facility] [address] [place], [place], [address] TYPE AND SCREEN Collected: 06/19/2018 Status: F Source: [place] 10:50 AM [facility] Order Comment: Has pt arrived? Y Reason for Type AND Screen/Red Cells: SURGERY Surgery Date: 06/19/18 Time: 1230 Type of Surgery: OTHER TYPE CODE TESTS RESULT OUT OF RANGE REFERENCE UNITS LAB B10.0800 A Normal BLOOD TYPE GEL POSITIVE LAB B100.4000 Normal Antibody NEGATIVE Screen Performed By: #### B101.7450 #### [facility] [address] [place], [place], [address] CA 125 SERIAL Collected: 06/19/2018 Status: F Source: [place] MONITOR 10:50 AM [facility] TYPE CODE TESTS RESULT OUT OF RANGE REFERENCE UNITS LAB L3100.5010 0.0-38.1 U/mL Normal CA125 10.3 2303 Result Comment: Daniella ECLIA methodology Performed at: [facility] [address], [place], [place] [id number] Card Sorter: Rajinder Hensley PhD, Phone: [phone] LAB L3100.2463 Normal CA 125 SM GRAPH Result Comment: Scanned image report available in EMR Performed By: #### L3100.4950 #### [facility] (refer to report for specific site) refer to report for address and phone number DISCHARGE INSTRUCTION Observed: 06/19/2018 Status: F Source: [place] 7:26 AM [facility] Medical Records Department [address] [place] [address] Discharge Instruction 06/19/18724 MR#: [id number] Acct: [id number] Name: KAT ARITA Rep #: [id number] : 1975 43 From: Rakel Duenas MD PCP: Antonino Billy MD Status: REG ER ED Disposition - Plan for ED Patient: Chief Complaint: Abd Pain Instructions: ED Cyst Ovarian Prescriptions: Oxycodone HCl/Acetaminophen [Percocet 5/325] 1 tablet PO Q6H PRN PRN 3 Days #12 tablet PRN Reason: Pain Referrals: Antonino Billy MD [Primary Care Provider] - Shelia Yanes MD [STAFF PHYSICIAN] - What to do if you have Problems For any increased pain, shortness of breath, bleeding, nausea or vomiting, chest pain, or any unexpected problems, contact your Primary Care Provider. Call [facility] ([phone]) or report to the closest Emergency Room. Call 911 if necessary. 06/19/18725 <Electronically signed by Rakel Duenas MD> Date Rakel Duenas MD Cosigner Signature (If Indicated): Date CC: Antonino Billy MD DISCHARGE INSTRUCTION Observed: 06/19/2018 Status: F Source: [place] 7:24 AM [facility] Medical Records Department [address] [place] [address] Discharge Instruction 06/19/18721 MR#: [id number] Acct: [id number] Name: KAT ARITA Rep #: [id number] : 1975 43 From: Rakel Duenas MD PCP: Antonino Billy MD Status: REG ER ED Disposition - Plan for ED Patient: Chief Complaint: Abd Pain Prescriptions: Oxycodone HCl/Acetaminophen [Percocet 5/325] 1 tablet PO Q6H PRN PRN 3 Days #12 tablet PRN Reason: Pain Referrals: Antonino Billy MD [Primary Care Provider] - Shelia Yanes MD [STAFF PHYSICIAN] - What to do if you have Problems For any increased pain, shortness of breath, bleeding, nausea or vomiting, chest pain, or any unexpected problems, contact your Primary Care Provider. Call [facility] ([phone]) or report to the closest Emergency Room. Call 911 if necessary. 06/19/18 0724 <Electronically signed by Rakel Duenas MD> Date Rakel Duenas MD Cosigner Signature (If Indicated): Date CC: Antonino Billy MD EMERGENCY DEPARTMENT Observed: 06/19/2018 Status: F Source: [place] SUMMARY 7:03 AM [facility] Medical Records Department [address] [place] [address] Emergency Department Summary 06/19/18 0455 MR#: [id number] Acct: [id number] Name: LYLAKAT A Rep #: [id number] : 1975 43 From: Rakel Duenas MD PCP: Antonino Billy MD Status: REG ER - ER Visit Summary Date of Service: 06/19/18 Chief Complaint: Abdominal pain History of Present Illness: The patient is a 43 F presenting with left lower quadrant abdominal pain. This started 3 days ago. She was seen in the ED at that time. She had a CT scan and pelvic ultrasound which showed a simple and complex left ovarian cyst. She was sent home with [place]. She states [place] is not helping. She believes the pain has worsened. She now complains of bloating as well. She denies fever. Denies other complaints. Physical Examination: Vitals are stable. Patient is afebrile. Alert no acute distress. HEENT exam is unremarkable. Neck is supple. Lungs are clear and equal bilaterally. Heart is regular rate and rhythm. Abdomen is soft left lower quadrant tenderness with no rebound or guarding Extremities are unremarkable. Skin is warm and dry. Remainder of exam is unremarkable. Emergency Department Course and Treatment: Patient was given Dilaudid, Zofran IV. CBC chemistries unremarkable. Urinalysis unremarkable. HCG negative. Pelvic ultrasound shows enlarged left ovary containing an 8 cm cyst with a thick septation. Considerations include both benign and malignant neoplasms. Recommend GEAR FINISHER consult. CT abdomen pelvis with po contrast shows no acute findings in the abdomen or pelvis. Fatty liver. Enlarged left ovary containing a 7.7 cm minimally complex left ovarian cyst. Considerations include both benign and malignant neoplasms. Recommend GEAR FINISHER consult. No evidence of bowel obstruction. Discussed with Dr Yanes and she will evaluate the patient in the ED. Disposition: pending NURSERY MANAGER eval Impression: Complex left ovarian cyst This note was generated with [employer] dictation software. It may contain incorrect words, spelling, and punctuation that were not noted in review of the chart prior to signing ED Disposition - Plan for ED Patient: Chief Complaint: Abd Pain Referrals: nAtonino Billy MD [Primary Care Provider] - What to do if you have Problems For any increased pain, shortness of breath, bleeding, nausea or vomiting, chest pain, or any unexpected problems, contact your Primary Care Provider. Call [facility] ([phone]) or report to the closest Emergency Room. Call 911 if necessary. 06/19/18 0703 <Electronically signed by Rakel Duenas MD> Date Rakel Duenas MD Cosigner Signature (If Indicated): Date CC: Antonino Billy MD TRANSVAGINAL Observed: 06/19/2018 Status: F Source: [place] NON- 2:52 [facility] Imaging Services [address] [place] [address] Transvaginal Non- MR#: [id number] Acct: [id number] Name: KAT ARITA Rep #: [id number] : 1975 F 43 From: Yury Ann PCP: Antonino Billy MD Status: REG ER Study: Transvaginal Non- Date of Exam: 06/19/18 Exam# [id number] Ordering Dr: Rakel Duenas MD ADDENDUM by Yury Ann on 06/19/18 at 0458 ADDENDUM The left ovarian cyst was not present on the CT abdomen and pelvis from December 06, 2013. Electronically Signed: Yury Ann MD at 4:55 EDT , Service support , 06/19/18 5487 Date cc: Rakel Duenas MD; Antonino Billy MD * Signed ADDENDUM by Yury Ann on 06/19/18 at 0455 US/Transvaginal Non- 06/19/18 0502 Date cc: Rakel Duenas MD; Antonino Billy MD * Signed STUDY: ULTRASOUND TRANSVAGINAL CLINICAL: Female, 43 years old. Ovarian cyst. TECHNIQUE: Transvaginal COMPARISON: 06/16/2018. CT abdomen and pelvis June 16, 2018. FINDINGS: Uterus is absent. Right ovary not visualized. Left ovary measures 8.8 x 6.3 x 4.8 cm and contains an anechoic cyst measuring 8.0 x 6.1 x 4.4 cm which contains a thickened septation.. There is no free fluid in the pelvis. Polycystic ovary disease: No. US/Transvaginal Non- IMPRESSION: Enlarged left ovary containing an 8 cm cyst with a thick septation. Considerations include both benign and malignant neoplasms. Recommend GEAR FINISHER consult. Electronically Signed: Yury Ann MD at 4:54 EDT , Service support , CC: Rakel Duenas MD; Antonino Billy MD Supervisor In Charge: Signed ABDOMEN/PEL W ORAL CONT Observed: 06/19/2018 Status: F Source: [facility] 2:52 AM [facility] REPOSITORY [facility] Imaging Services [address] [place] [address] Abdomen/Pel W ORAL Cont Only MR#: [id number] Acct: [id number] Name: KAT ARITA Rep #: [id number] : 1975 F 43 From: Yury Ann PCP: Antonino Billy MD Status: REG ER Study: Abdomen/Pel W ORAL Cont Only Date of Exam: 06/19/18 Exam# [id number] Ordering Dr: Rakel Duenas MD STUDY: CT ABDOMEN AND PELVIS WITHOUT CONTRAST REASON FOR EXAM: Female, 43 years old. Abdominal pain, nausea, bloating. RADIATION DOSAGE (If Supplied By Facility): CTDIvol = ( 8.70 ) mGy, DLP = ( 441.03 ) mGycm TECHNIQUE: Transaxial images were obtained from the dome of the diaphragm to the symphysis pubis with oral contrast, and without intravenous contrast. Sagittal and coronal images were reconstructed. Individualized dose optimization techniques were used for this CT. COMPARISON: June 16, 2018. December 06, 2013. Pelvic ultrasound June 19, 2018. FINDINGS: The visualized lung bases are unremarkable. The visualized portions of the heart are within normal limits. There is decreased attenuation of the liver consistent with steatosis. Normal gallbladder and extrahepatic biliary system. Normal spleen. Normal pancreas. Normal bilateral adrenal glands. Normal right kidney. Normal left kidney. Normal visualized stomach. Normal small intestine. At the time of imaging only the stomach, duodenum and proximal/mid jejunum were opacified with oral contrast. Normal colon. The appendix is visualized and appears normal. Normal abdominal aorta. Normal inferior vena cava. Normal retroperitoneum. No intra-abdominal free air. Normal urinary bladder. Uterus grossly normal. 7.7 x 5.7 cm minimally complex left ovarian cyst, unchanged since the recent prior CT scan and not present on the study of November 2013. The thickened septation seen on the ultrasound is not appreciated on this study. Normal abdominal wall. Normal osseous structures. CT/Abdomen/Pel W ORAL Cont Only IMPRESSION: No acute findings in the abdomen or pelvis. Fatty liver. Enlarged left ovary containing a 7.7 cm minimally complex left ovarian cyst. There is a thickened septation within the cyst on the pelvic ultrasound not appreciated on this study. Considerations include both benign and malignant neoplasms. Recommend GEAR FINISHER consult. No evidence of bowel obstruction. Electronically Signed: Yury Ann MD at 5:38 EDT , Service support , CC: Rakel Duenas MD; Antonino Billy MD Supervisor In Charge: Signed CBC W/DIFF, AUTOMATED Collected: 06/19/2018 Status: F Source: [place] 2:20 AM [facility] REPOSITORY TYPE CODE TESTS RESULT OUT OF RANGE REFERENCE UNITS LAB L100.1000 4.4-11.0 K/mm3 Normal WBC 10.0 LAB L100.1200 4.2-5.4 M/mm3 Normal RBC 4.42 LAB L100.1300 12.0-15.0 g/dl Normal HGB 14.5 LAB L100.1400 37-47 % Normal HCT 42.8 LAB L100.1500 81-99 fL Normal MCV 96.8 LAB L100.1600 27.0-32.0 pg High MCH 32.8 LAB L100.1700 32-36 g/gl Normal MCHC 33.9 LAB L100.1810 11.6-14.6 % Normal RDW CV 12.3 LAB L100.1820 35.1-43.9 fl Normal RDW SD 42.8 LAB L100.1900 150-450 K/mm3 Normal PLT 196 LAB L100.2000 6.2-12.0 fl Normal MPV 11.1 LAB L100.2100 47-70 % Normal NEUT% 51.5 LAB L100.2200 19-41 % Normal LY% 39.6 LAB L100.2300 0-10 % Normal MONO% 6.2 LAB L100.2400 0-5 % Normal EO% 1.9 LAB L100.2500 0-1 % Normal BASO% 0.6 LAB L100.2550 0.0-0.9 % Normal IM GRAN % 0.200 Result Comment: IG% - Immature Granulocytes (promyelocytes, myelocytes and metamyelocytes) > 1% indicates that a LEFT SHIFT is Present. LAB L100.2620 2.0-7.7 X10 3/uL Normal Absolute Neut 5.2 LAB L100.2720 0.83-4.51 X10 3/ul Normal Absolute Lymph 3.96 Performed By: #### L100.0100 #### [facility] [address] [place], [address] BASIC METABOLIC Collected: 06/19/2018 Status: F Source: [place] PROFILE ([facility]) 2:20 AM [facility] REPOSITORY TYPE CODE TESTS RESULT OUT OF RANGE REFERENCE UNITS LAB L501.0100 74-106 mg/dL Normal GLU 106 Result Comment: Fasting Glucose result from 100 to 125 mg/dL suggests IMPAIRED HOMEOSTASIS per A.D.A. criteria. Please note revised GLUCOSE reference range effective 2017. LAB L501.1000 7-18 mg/dL Normal BUN 10 LAB L501.1100 0.55-1.02 mg/dL Normal CREAT,SERUM 0.76 Result Comment: The validity of the calculated GFR AND GFRAA in patients over 70 years has not been determined. Clinical correlation is essential. LAB L501.1110 >60 mL/min Normal EST GFR 88 Result Comment: Non- GFR Calc LAB L501.1115 >60 mL/min Normal EST GFR - AA 107 Result Comment: GFR Calc LAB L501.1255 ml/min Normal Estimated CRCL 80.58 LAB L501.1300 10-20 RATIO Normal BUN/CRE 13.1 LAB L501.2200 8.5-10 mg/dL Low .1 CA 8.4 LAB L501.5300 136-14 mmol/L Normal 5 NA 140 LAB L501.5600 3.5-5. mmol/L Normal 1 K 3.6 LAB L501.5900 98-107 mmol/L High CL 109 LAB L501.6100 21.0-3 mmol/L Normal 2.0 CO2 26.0 LAB L501.6200 5-15 Normal GAP 5 Performed By: #### L500.2500 #### [facility] [address] [place], [place], [address] ,SERUM,HCG QUALI. Collected: Status: F Source: [place] 06/19/2018 2:20 AM [facility] REPOSITORY TYPE CODE TESTS RESULT OUT OF REFERENCE UNITS RANGE LAB L700.6700 =>Qualitative mIU/mL Normal HCG Qual < 1 triggr LAB L700.7000 0-9 Nonpreg Negative Normal HCGSQUAL NEGATIVE Performed By: #### L700.6800 #### [facility] [address] [place], [place], [address] URINALYSIS, COMPLETE Collected: 06/19/2018 Status: F Source: [place] 2:10 AM [facility] REPOSITORY Order Comment: How was Urine Obtained? CLEAN CATCH TYPE CODE TESTS RESULT OUT OF RANGE REFERENCE UNITS LAB L400.3000 Yellow COLOR Normal Yellow LAB L400.3050 Clear Normal CLARITY Sl. Cloudy LAB L400.3200 Normal mg/dl Normal GLUCOSE, UR Normal LAB L400.3300 Negative mg/dL Normal BILIRUBIN URINE Negative LAB L400.3400 Negative mg/dl Normal KETONE UR Negative LAB L400.3465 1.002-1.030 Normal SP.GR. DIPSTX 1.015 LAB L400.3550 5.0 - 8.0 pH UR Normal 7.0 LAB L400.3600 Negative mg/dl High PROT 30 DIPSTX LAB L400.3700 Normal mg/dl High 1 UROBILI LAB L400.3750 Negative Normal NITRITE UR Negative LAB L400.3780 Negative /ul High 10 OCCULT BLOOD-UR LAB L400.3800 Negative /ul High LEUK 25 ESTERASE LAB L400.4050 0-5 /hpf WBC Normal 0-5 SEEN LAB L400.4100 0-5 /hpf Normal RBC-UA 0-5 SEEN LAB L400.4150 5-10 /hpf SQUAM Normal EPI 25-50 SEEN LAB L400.4300 None Seen /hpf 0 Normal BACTERIA SEEN LAB L400.4350 <or=2+ /hpf 0 Normal MUCUS, URINE SEEN Performed By: #### L400.0001 #### [facility] [address] [place], [address] CNOP Observed: 06/19/2018 Status: COMPLETED Source: [place] 12:00 AM [facility] REPOSITORY Operative Note (Enc) (WOOB) Progress Notes: Shelia Yanes MD 06/23/2018 4:59 PM Signed Patient underwent a laparoscopic extensive lysis of adhesions of the omentum off the anterior abdominal wall and colon off the pelvic sidewall, left ovary off the pelvic sidewall and appendectomy on 06/19/2018 for acute pelvic pain with complex left adnexal mass. She had an extensive amount of adhesions of her colon to her ovary and pelvic sidewall. General surgeon Dr. Atwood was called in intraoperatively to assist. He perform some of the lysis of adhesions in the appendectomy. I performed some of the lysis of adhesions and the oophorectomy on the left. Her right ovary was and what adhered to the pelvic sidewall and there were some colon adhesions near it also. However, it was left intact and appeared to be normal size overall. The pelvic washings were negative. The cyst fluid contained straw-colored and blood colored fluid. There is no gross blood. Pathology has returned benign and consistent with corpus luteum and had a hemorrhagic cyst. There were at least 2 separate cysts that were ruptured during the surgery. The tube was not separately identified but is present on the pathological specimen. Patient was discharged home the same day with routine instructions and prescriptions. Shelia Yanes MD Encounter Status:Closed by SHELIA YANES MD on 06/23/18 CNOP Observed: 06/19/2018 Status: COMPLETED Source: [place] 12:00 AM [facility] REPOSITORY Operative Note (Enc) (GENSWS) Progress Notes: Nora Atwood MD 07/02/2018 11:41 AM Signed [facility] SURGICAL PROCED[facility]. June 19, 2018 Katshay Johnser 1975 [id number] female PROCEDURE: laparoscopic appendectomy - 26099-529, Laparoscopic Lysis of Adhesions - 79139 SURGEON: Heather Atwood M.D. FACS [employer] INSTALLER: None DEPT: W PROVIDER: [id number]=AvhktmsNora Atwood MD POS: [id number] DIAGNOSIS: (R10.32, G89.29) Chronic LLQ pain (primary encounter diagnosis) (K66.0) Intestinal adhesions ASA CLASS: 2 - mild FINDINGS: COMPLICATIONS: None PMHx - PAST MEDICAL HISTORY Diagnosis Date - Acne Vulgaris: Grade IV Nodulocystic--scarring 08/28/2009 - Adjustment disorder with depressed mood - Allergic rhinitis, cause unspecified 03/02/2006 - Depressive disorder - Fibromyalgia - Myalgia and myositis, unspecified - Other and unspecified hyperlipidemia 2003 - Other chronic cystitis 09/20/2005 - Palpitations 07/19/2005 - Systemic lupus erythematosus (HCC) - Thyroid nodule - Thyroiditis, unspecified 2000 had PP thyroiditis / hyperthyroidism, treated with radioactive iodine, was on Synthroid for a while, but recent TSH's are normal off of meds - Tobacco abuse COMORBIDITIES - Smoking/Tobacco Post Op Occurrences - None Wound Classification - Clean Contaminated Operative note dictated in the [facility] dictation system. Nora Atwood MD Encounter Status:Closed by NORA ATWOOD MD on 07/02/18 EMERGENCY DEPARTMENT Observed: 06/16/2018 Status: F Source: [place] SUMMARY 10:42 PM [facility] Medical Records Department [address] [place] [address] Emergency Department Summary 06/16/18 1732 MR#: [id number] Acct: [id number] Name: KAT ARITA Rep #: [id number] : 1975 43 From: Rakel Duenas MD PCP: Antonino Billy MD Status: REG ER - ER Visit Summary Date of Service: 06/16/18 Chief Complaint: Right flank pain History of Present Illness: The patient is a 43 F presenting with right flank and right lower quadrant abdominal pain. She states this started suddenly while at work. She has nausea with no vomiting. Denies fever. Denies dysuria or hematuria. She has never had these symptoms in the past. Denies other complaints. Physical Examination: Vitals are stable. Patient is afebrile. Alert no acute distress. HEENT exam is unremarkable. Neck is supple. Lungs are clear and equal bilaterally. Heart is regular rate and rhythm. Abdomen is soft right lower quadrant tenderness with no rebound or guarding Pelvic: No cervical motion tenderness, left adnexal tenderness. No discharge Back: Right CVA tenderness Extremities are unremarkable. Skin is warm and dry. Remainder of exam is unremarkable. Emergency Department Course and Treatment: Patient is given morphine, Zofran IV. CT abdomen pelvis shows no evidence of urolithiasis or renal obstruction, unremarkable appendix, large multiseptated cystic structure in the left adnexa, likely adnexal cyst versus ovarian cyst. Recommend pelvic ultrasound to further evaluate. Pelvic ultrasound shows 2 left ovarian cysts, one is simple in appearance and the second is complex in appearance. Recommend repeat pelvic ultrasound in 4-6 weeks. Status post hysterectomy. Normal right ovary. Patient initially felt the pain on the right but she states it does radiate to the left side as well. Patient was given Dilaudid IV with improvement of her symptoms. CBC, chemistries unremarkable. Urinalysis is unremarkable. Patient is given prescription for short course of [place]. She is advised to follow-up with her NURSERY MANAGER. Advised return to ED for worsening complaints. Disposition: Discharge home Impression: Left ovarian cyst This note was generated with [employer] dictation software. It may contain incorrect words, spelling, and punctuation that were not noted in review of the chart prior to signing ED Disposition - Plan for ED Patient: Chief Complaint: Flank Pain Instructions: ED Cyst Ovarian Prescriptions: Hydrocodone Bitart/Apap 5-325 [[place] 5MG-325MG] 1 tablet PO Q6H PRN PRN 3 Days #10 tablet PRN Reason: Pain Referrals: Shelia Yanes MD [STAFF PHYSICIAN] - Care Physician,No Primary [NON-STAFF] - What to do if you have Problems For any increased pain, shortness of breath, bleeding, nausea or vomiting, chest pain, or any unexpected problems, contact your Primary Care Provider. Call [facility] ([phone]) or report to the closest Emergency Room. Call 911 if necessary. 06/16/182241 <Electronically signed by Rakel Duenas MD> Date Rakel Duenas MD Cosigner Signature (If Indicated): Date CC: Antonino Billy MD DISCHARGE INSTRUCTION Observed: 06/16/2018 Status: F Source: [place] 10:37 PM [facility] Medical Records Department [address] [place] [address] Discharge Instruction 06/16/183 MR#: [id number] Acct: [id number] Name: KAT ARITA Rep #: [id number] : 1975 43 From: Rakel Duenas MD PCP: Antonino Billy MD Status: REG ER ED Disposition - Plan for ED Patient: Chief Complaint: Flank Pain Instructions: ED Cyst Ovarian Prescriptions: Hydrocodone Bitart/Apap 5-325 [[place] 5MG-325MG] 1 tablet PO Q6H PRN PRN 3 Days #10 tablet PRN Reason: Pain Referrals: Care Physician,No Primary [NON-STAFF] - Shelia Yanes MD [STAFF PHYSICIAN] - What to do if you have Problems For any increased pain, shortness of breath, bleeding, nausea or vomiting, chest pain, or any unexpected problems, contact your Primary Care Provider. Call [facility] ([phone]) or report to the closest Emergency Room. Call 911 if necessary. 06/16/182236 <Electronically signed by Rakel Duenas MD> Date Rakel Duenas MD Cosigner Signature (If Indicated): Date CC: Antonino Billy MD TRANSVAGINAL Observed: 06/16/2018 Status: F Source: [place] NON- 7:21 PM [facility] Imaging Services [address] [place] [address] Transvaginal Non- MR#: [id number] Acct: [id number] Name: KAT ARITA Rep #: [id number] : 1975 F 43 From: [facility] PCP: Antonino Billy MD Status: REG ER Study: Transvaginal Non- Date of Exam: 06/16/18 Exam# [id number] Ordering Dr: Rakel Duenas MD STUDY: ULTRASOUND OF THE FEMALE PELVIS - COMPLETE REASON FOR EXAM: Female, 43 years old. Pelvic pain LMP: Unknown. TECHNIQUE: Transabdominal and Transvaginal # of Images: 50 TECHNICAL QUALITY: Adequate. COMPARISON: CT abdomen and pelvis earlier FINDINGS: Status post hysterectomy The right ovary is visualized. The right ovary measures 2.5 x 1.6 x 1.6 cm. There is no right ovarian cyst or ovarian mass. There is no visualized right adnexal mass or complex lesion. There is normal arterial and normal venous vascularity. The left ovary is visualized. The left ovary measures 8.4 x 7.1 x 5.4 cm. There are 2 ovarian cysts, one measures 4.6 x 4.8 x 5.0 cm. This cyst is anechoic and simple in appearance. A second cyst is noted measuring 5.1 x 4.9 x 4.6 cm. This is complex in nature with a soft tissue mural component, without vascularity. There is no visualized left adnexal mass or complex lesion. There is normal arterial and normal venous vascularity. There is no fluid in the cul-de-sac. The pre void volume of the bladder was 50 ml. US/Transvaginal Non- IMPRESSION: 2 left ovarian cysts, one is simple in appearance and the second is complex in appearance. Recommend repeat pelvic ultrasound in 4-6 weeks. Status post hysterectomy. Normal right ovary. Electronically Signed: Kwasi Willett DO at 21:52 EDT Tel , Service support , CC: Rakel Duenas MD; Antonino Billy MD Supervisor In Charge: Signed PELVIC (NON ) Observed: 06/16/2018 Status: F Source: [place] 7:21 PM [facility] Imaging Services [address] [place] [address] Pelvic (Non ) MR#: [id number] Acct: [id number] Name: KAT ARITA Jazmyne Rep #: [id number] : 1975 F 43 From: Kwasi Willett DO PCP: Antonino Billy MD Status: REG ER Study: Pelvic (Non ) Date of Exam: 06/16/18 Exam# [id number] Ordering Dr: Rakel Duenas MD STUDY: ULTRASOUND OF THE FEMALE PELVIS - COMPLETE REASON FOR EXAM: Female, 43 years old. Pelvic pain LMP: Unknown. TECHNIQUE: Transabdominal and Transvaginal # of Images: 50 TECHNICAL QUALITY: Adequate. COMPARISON: CT abdomen and pelvis earlier FINDINGS: Status post hysterectomy The right ovary is visualized. The right ovary measures 2.5 x 1.6 x 1.6 cm. There is no right ovarian cyst or ovarian mass. There is no visualized right adnexal mass or complex lesion. There is normal arterial and normal venous vascularity. The left ovary is visualized. The left ovary measures 8.4 x 7.1 x 5.4 cm. There are 2 ovarian cysts, one measures 4.6 x 4.8 x 5.0 cm. This cyst is anechoic and simple in appearance. A second cyst is noted measuring 5.1 x 4.9 x 4.6 cm. This is complex in nature with a soft tissue mural component, without vascularity. There is no visualized left adnexal mass or complex lesion. There is normal arterial and normal venous vascularity. There is no fluid in the cul-de-sac. The pre void volume of the bladder was 50 ml. US/Pelvic (Non ) IMPRESSION: 2 left ovarian cysts, one is simple in appearance and the second is complex in appearance. Recommend repeat pelvic ultrasound in 4-6 weeks. Status post hysterectomy. Normal right ovary. Electronically Signed: Kwasi Willett DO at 21:52 EDT Tel , Service support , CC: Rakel Duenas MD; Antonino Billy MD Supervisor In Charge: Signed CBC W/DIFF, AUTOMATED Collected: 06/16/2018 Status: F Source: [place] 5:42 PM [facility] REPOSITORY Order Comment: Order Date: 06/16/18 TYPE CODE TESTS RESULT OUT OF RANGE REFERENCE UNITS LAB L100.1000 4.4-11.0 K/mm3 Normal WBC 9.6 LAB L100.1200 4.2-5.4 M/mm3 Normal RBC 4.33 LAB L100.1300 12.0-15.0 g/dl Normal HGB 14.4 LAB L100.1400 37-47 % Normal HCT 41.7 LAB L100.1500 81-99 fL Normal MCV 96.3 LAB L100.1600 27.0-32.0 pg High MCH 33.3 LAB L100.1700 32-36 g/gl Normal MCHC 34.5 LAB L100.1810 11.6-14.6 % Normal RDW CV 12.2 LAB L100.1820 35.1-43.9 fl Normal RDW SD 41.9 LAB L100.1900 150-450 K/mm3 Normal PLT 197 LAB L100.2000 6.2-12.0 fl Normal MPV 11.9 LAB L100.2100 47-70 % Normal NEUT% 52.1 LAB L100.2200 19-41 % Normal LY% 38.0 LAB L100.2300 0-10 % Normal MONO% 7.0 LAB L100.2400 0-5 % Normal EO% 2.1 LAB L100.2500 0-1 % Normal BASO% 0.5 LAB L100.2550 0.0-0.9 % Normal IM GRAN % 0.300 Result Comment: IG% - Immature Granulocytes (promyelocytes, myelocytes and metamyelocytes) > 1% indicates that a LEFT SHIFT is Present. LAB L100.2620 2.0-7.7 X10 3/uL Normal Absolute Neut 5.0 LAB L100.2720 0.83-4.51 X10 3/ul Normal Absolute Lymph 3.65 Performed By: #### L100.0100 #### [facility] [address] [place], [address] BASIC METABOLIC Collected: 06/16/2018 Status: F Source: [place] PROFILE ([facility]) 5:42 PM [facility] REPOSITORY TYPE CODE TESTS RESULT OUT OF RANGE REFERENCE UNITS LAB L501.0100 74-106 mg/dL Normal GLU 85 Result Comment: Please note revised GLUCOSE reference range effective 2017. LAB L501.1000 7-18 mg/dL Normal BUN 11 LAB L501.1100 0.55-1.02 mg/dL Normal CREAT,SERUM 0.77 Result Comment: The validity of the calculated GFR AND GFRAA in patients over 70 years has not been determined. Clinical correlation is essential. LAB L501.1110 >60 mL/min Normal EST GFR 88 Result Comment: Non- GFR Calc LAB L501.1115 >60 mL/min Normal EST GFR - AA 106 Result Comment: GFR Calc LAB L501.1255 ml/min Normal Estimated CRCL 79.54 LAB L501.1300 10-20 RATIO Normal BUN/CRE 14.3 LAB L501.2200 8.5-10 mg/dL Normal .1 CA 9.0 LAB L501.5300 136-14 mmol/L Normal 5 NA 142 LAB L501.5600 3.5-5. mmol/L Normal 1 K 3.9 LAB L501.5900 98-107 mmol/L High CL 109 LAB L501.6100 21.0-3 mmol/L Normal 2.0 CO2 25.0 LAB L501.6200 5-15 Normal GAP 8 Performed By: #### L500.2500 #### [facility] [address] [place], [address] URINALYSIS, COMPLETE Collected: 06/16/2018 Status: F Source: [place] 5:42 PM [facility] REPOSITORY Order Comment: Order Date: 06/16/18 How was Urine Obtained? CLEAN CATCH TYPE CODE TESTS RESULT OUT OF RANGE REFERENCE UNITS LAB L400.3000 Yellow COLOR Normal Yellow LAB L400.3050 Clear Normal CLARITY Clear LAB L400.3200 Normal mg/dl Normal GLUCOSE, UR Normal LAB L400.3300 Negative mg/dL Normal BILIRUBIN URINE Negative LAB L400.3400 Negative mg/dl Normal KETONE UR Negative LAB L400.3465 1.002-1.030 Normal SP.GR. DIPSTX 1.010 LAB L400.3550 5.0 - 8.0 pH UR Normal 7.0 LAB L400.3600 Negative mg/dl PROT Normal DIPSTX Negative LAB L400.3700 Normal mg/dl Normal UROBILI Normal LAB L400.3750 Negative Normal NITRITE UR Negative LAB L400.3780 Negative /ul Normal OCCULT BLOOD-UR Negative LAB L400.3800 Negative /ul LEUK Normal ESTERASE Negative LAB L400.4050 0-5 /hpf WBC 0 Normal SEEN LAB L400.4100 0-5 /hpf 0 Normal RBC-UA SEEN LAB L400.4150 5-10 /hpf SQUAM Normal EPI 0-5 SEEN LAB L400.4300 None Seen /hpf 0 Normal BACTERIA SEEN LAB L400.4350 <or=2+ /hpf 0 Normal MUCUS, URINE SEEN Performed By: #### L400.0001 #### [facility] Laboratory [address] [place], [address] ABDOMEN/PELVIS WITHOUT Observed: 06/16/2018 Status: F Source: ESTELLE CONT 5:32 PM [facility] Imaging Services [address] [place] [address] Abdomen/Pelvis without Cont MR#: [id number] Acct: [id number] Name: KAT ARITA Rep #: [id number] : 1975 F 43 From: Kwasi Willett DO PCP: Antonino Billy MD Status: REG ER Study: Abdomen/Pelvis without Cont Date of Exam: 06/16/18 Exam# [id number] Ordering Dr: Rakel Duenas MD STUDY: CT ABDOMEN AND PELVIS WITHOUT CONTRAST REASON FOR EXAM: Female, 43 years old. Right-sided abdominal pain RADIATION DOSAGE (If Supplied By Facility): CTDIvol = ( 8.32 ) mGy, DLP = ( 382.49 ) mGycm TECHNIQUE: Transaxial images were obtained from the dome of the diaphragm to the symphysis pubis without oral contrast, and without intravenous contrast. Sagittal and coronal images were reconstructed. # of Images: 429 Individualized dose optimization techniques were used for this CT. COMPARISON: 12/06/2013 FINDINGS: The visualized lung bases are unremarkable. The visualized portions of the heart are within normal limits. Normal liver. Normal gallbladder and extrahepatic biliary system. Normal spleen. Normal pancreas. Normal bilateral adrenal glands. Normal right kidney. Normal left kidney. Normal visualized stomach. Normal small intestine. Normal colon. The appendix is visualized and appears normal. Normal abdominal aorta. Normal inferior vena cava. Normal retroperitoneum. Normal urinary bladder. Multiseptated cystic structure in the left adnexa measuring roughly 8.9 x 5.3 cm. Probable complicated ovarian or paraovarian cyst. Status post hysterectomy. Normal abdominal wall. Normal osseous structures. CT/Abdomen/Pelvis without Cont IMPRESSION: 1. No evidence of urolithiasis or renal obstruction 2. Unremarkable appendix 3. Large multiseptated cystic structure in the left adnexa, likely adnexal cyst versus ovarian cyst. Recommend pelvic ultrasound to further evaluate Electronically Signed: Kwasi Willett DO at 18:41 EDT Tel , Service support , CC: Rakel Duenas MD; Antonino Billy MD Supervisor In Charge: Signed CNOV Observed: 05/29/2018 Status: COMPLETED Source: [place] 2:00 PM [facility] REPOSITORY [facility] KAT ARITA ([id number]) 1975 F Date Time Provider Department 05/29/18 2:00 PM ELMIRA EVANS [facility] During your visit today, we recorded the following information about you: Pulse Respiration Blood pressure Weight 64/minute 18/minute 132/86 78.5 kg Elmira Evans [email or web address] 05/30/2018 8:28 AM Signed 05/29/2018 Patient presents with: Hives: no new meds or skin care or shampoos started tuesday. was at [facility] last evening SUBJECTIVE: This is a 43 year old that is here today for Above Complaints. In ER on 05/27 and 05/28 for hives. Given a prescription for prednisone for which she is on day 3 of and epi-pen. She was treated with epi IM and benadryl IM yesterday in ER. Presents today for follow-up ONSET: Tuesday woke up with rash LOCATION: entire body DURATION:went away intially tuesday when went to ER then came back Tuesday and reports it was worse CHARACTERISTICS:burnng feeling AGGRAVATING FEATURES: nothing ALLIEVIATING FEATURES: medicine from ER Denies fever, chills, new lotions, soaps, shampoos, detergents, prescribed, OTC, herbal medications, traveling, contacts with rashes, new foods, plant/animal exposure, new clothing or bedding, SOB, dyspnea, wheezing, drooling, lip swelling or feeling like throat is closing. Also denies stress. She reports she did not get her epi-pen filled d/t cost of $80.00. Patient is asking for note to be off work until she finds out what hives are from. PAST MEDICAL HISTORY Diagnosis Date - Acne Vulgaris: Grade IV Nodulocystic--scarring 08/28/2009 - Adjustment disorder with depressed mood - Allergic rhinitis, cause unspecified 03/02/2006 - Depressive disorder - Fibromyalgia - Myalgia and myositis, unspecified - Other and unspecified hyperlipidemia 2003 - Other chronic cystitis 09/20/2005 - Palpitations 07/19/2005 - Systemic lupus erythematosus (HCC) - Thyroid nodule - Thyroiditis, unspecified 2000 had PP thyroiditis / hyperthyroidism, treated with radioactive iodine, was on Synthroid for a while, but recent TSH's are normal off of meds - Tobacco abuse ALLERGIES Iodinated Contrast- Oral And Iv Dye; Augmentin [Amoxicillin-Pot Clavulanate]; Bactrim [Sulfamethoxazole-Trimethoprim]; Cetirizine; Environmental Allergies [Other]; Ibuprofen; Iv Contrast [Iodine]; Macrodantin [Nitrofurantoin Macrocrystalline]; Nsaids (Non-Steroidal Anti-Inflammatory Drug); Phenazopyridine; Pseudoephedrine Hcl; Pyridium [Phenazopyridine Hcl] MEDICATIONS Current Outpatient Prescriptions: EPINEPHrine (EPIPEN) 0.3 mg/0.3 mL auto-injector Inject 0.3 mL intramuscularly as needed. Inject full content of the syringe. predniSONE (DELTASONE) 10 mg tablet Take 5 tablets by mouth once daily. famotidine (PEPCID) 20 mg tablet Take 1 tablet by mouth twice daily for 14 days. 20mg PO BID times 3 days then PRN sertraline (ZOLOFT) 100 mg tablet Take 1 tablet by mouth once daily. clonazePAM (KLONOPIN) 1 mg tablet Take 1 tablet by mouth at bedtime as needed for Anxiety. No current facility-administered medications for this visit. Medications and allergies reviewed by this provider. 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 OBJECTIVE: LMP 04/07/2012 .BP 132/86 (BP Site: Left Arm, BP Position: Sitting, BP Cuff Size: Regular Adult) Pulse 64 Resp 18 Wt 78.5 kg (173 lb) LMP 04/07/2012 BMI 28.79 kg/m? APPEARANCE Well appearing, alert, in no acute distress, well- hydrated, well nourished. SKIN; No rashes observed today. Left foot second two slightly reddened from scratching. ASSESSMENT/PLAN: 1. Hives - ICD9: 708.9, ICD10: L50.9 (primary diagnosis) - resolved - Likely viral or allergic etiology discussed with patient - no red flag exam findings - red flag symptoms discussed, verbalizes understanding - discussed since hives have resolved I can not write her off work until seeing an extension forester- as it may take some time to see one - finish prednisone taper - Anti itch therapy of Rx for Atarax and triamcinolone to be used sparingly to areas of itching recommended prn - discussed not driving operating heavy machinery while take vistaril. Discussed with patient not to take benadryl of klonopin at same time as vistaril, verbalizes understanding - virtual voucher for epi-pen provided - CONSULT TO ALLERGY/IMMUNOLOGY - Follow up if symptoms persist or worsen, to ER with red flag symptoms 2. Screening for breast cancer - ICD9: V76.10, ICD10: Z12.31 - [facility] SCREENING Elmira Podlogar, LEAD SECURITY OFFICER.REFINERY SUPERINTENDENT Prescription instructions reviewed with patient as applicable. Patient advised if symptoms do not improve or if symptoms worsen sooner, to contact their primary care physician. Potential red flag symptoms discussed with the patient. Reviewed appropriate action plan to take if red flag symptoms occur. Patient agreeable to treatment plan. Elmira Greenberglogcurtis, [email or web address] 05/29/2018 2:34 PM Addendum Use triamcinolone cream sparingly to areas of itching Use cool compresses to help with itching Do not drive or operate heavy machinery while taking vistaril- do not take with klonopin If you develop difficulty breathing, lip swelling, drooling, feel like throat is closing, or wheezing call Referring Provider: SELF [200] Allergies As of Date: 05/29/2018 Noted Allergy Reaction IODINATED CONTRAST- ORAL AND IV D*02/24/2017 4 - Hives AUGMENTIN (AMOXICILLIN-POT CLAVUL*07/19/2005 4 - Hives BACTRIM (SULFAMETHOXAZOLE-TRIMETH*12/04/2015 4 - Hives 7 - Swelling CETIRIZINE 14 - Other: See Comments Comments: Other reaction(s): Palpitations Environmental allergies [Other] 06/14/2006 Comments: Dust mites, molds IBUPROFEN 12/04/2015 4 - Hives 7 - Swelling IV CONTRAST (IODINE) 12/04/2015 2 - Rash 7 - Swelling MACRODANTIN (NITROFURANTOIN MACRO*07/19/2005 4 - Hives NSAIDS (NON-STEROIDAL ANTI-INFLAM*12/04/2015 4 - Hives PHENAZOPYRIDINE 7 - Swelling Comments: Other reaction(s): Hives PSEUDOEPHEDRINE HCL 14 - Other: See Comments Comments: Other reaction(s): Palpitations PYRIDIUM (PHENAZOPYRIDINE HCL) 03/21/2007 2 - Rash Date Reviewed: 05/29/2018 Reviewed by: Danelle Perez (Rory) RORY Robledo - Fully Assessed Reason for Visit: Hives [56] Cmt: no new meds or skin care or shampoos started tuesday. was at [facility] last evening Primary Visit Diagnosis:Hives [L50.9] Other Visit Diagnosis:Screening for breast cancer [Z12.31] Order(s):[facility] SCREENING [[id number]] Order #: [id number] FUTURE CONSULT TO ALLERGY/IMMUNOLOGY [9001] Order #: [id number]: 1 triamcinolone acetonide (KENALOG) 0.1 % creamApply 1 application to affected area three times daily. Apply sparingly to area for rash/itching.Disp: 85.2 gRfl: 1 hydrOXYzine pamoate (VISTARIL) 25 mg capsuleTake 1 capsule by mouth three times daily as needed. May take 25-50 mg three times a day as needed for itchingDisp: 30 capsuleRfl: 1 Prescriptions as of 05/29/2018 Sig: EPINEPHRINE 0.3 MG/0.3 ML INJ* Inject 0.3 mL intramuscularly* PREDNISONE 10 MG TABLET Take 5 tablets by mouth once * FAMOTIDINE 20 MG TABLET Take 1 tablet by mouth twice * SERTRALINE 100 MG TABLET Take 1 tablet by mouth once d* CLONAZEPAM 1 MG TABLET Take 1 tablet by mouth at bed* TRIAMCINOLONE ACETONIDE 0.1 %* Apply 1 application to affect* HYDROXYZINE PAMOATE 25 MG CAP* Take 1 capsule by mouth three* Problem List As Of Date 05/29/2018 Noted Resolved Severe episode of recurrent major depressive di*INVALID FOR* Generalized anxiety disorder [F41.1] INVALID FOR* ADJUSTMENT DISORDER WITH DEPRESSED MOOD [F43.21] 01/06/2007 Systemic lupus erythematosus (HCC) [M32.9] 12/29/2015 Fibromyalgia [M79.7] Palpitations [R00.2] INVALID FOR*12/29/2015 HYPOTHYROIDISM NOS [E03.9] INVALID FOR*01/06/2007 Other chronic cystitis [N30.20] INVALID FOR*12/29/2015 ALLERGIC RHINITIS NOS [J30.9] INVALID FOR* HYPERLIPIDEMIA NEC/NOS [E78.5] Thyroiditis, unspecified [E06.9] 12/29/2015 More... Acne Vulgaris: Grade IV Nodulocystic--scarring*INVALID FOR*12/29/2015 Scar Condition AND Fibrosis of Skin: acne: face*INVALID FOR* Sebaceous cyst [L72.3] INVALID FOR*12/29/2015 Dermatitis due to Unspec [L25.9] INVALID FOR*12/29/2015 Vitamin D deficiency [E55.9] INVALID FOR*12/29/2015 Tobacco abuse [Z72.0] INVALID FOR* Recurrent major depression in partial remission*INVALID FOR* Marital conflict [Z63.0] INVALID FOR* Panic disorder without agoraphobia [F41.0] INVALID FOR* Hx of Graves' disease [Z86.39] INVALID FOR* Impaired fasting glucose [R73.01] INVALID FOR* Uninodular goiter [E04.1] INVALID FOR* Thyroid nodule [E04.1] INVALID FOR* Other instructions from your clinician: Use triamcinolone cream sparingly to areas of itching Use cool compresses to help with itching Do not drive or operate heavy machinery while taking vistaril- do not take with klonopin If you develop difficulty breathing, lip swelling, drooling, feel like throat is closing, or wheezing call Prescriptions ordered this encounter Disp Refills Start End TRIAMCINOLONE ACETONIDE 0.1 % TOPICA* 85.2* 1 05/29/2018 Route: TOPICAL Sig: Apply 1 application to affected area three times daily. Apply sparingly to area for rash/itching. HYDROXYZINE PAMOATE 25 MG CAPSULE 30 c* 1 05/29/2018 Route: ORAL Sig: Take 1 capsule by mouth three times daily as needed. May take 25-50 mg three times a day as needed for itching Follow-up and Disposition History Recorded Encounter Status:Closed by PODLOGARELMIRA CNP on 05/30/18 PROGRESS Observed: 05/29/2018 Status: COMPLETED Source: [place] 1:[address] [facility] REPOSIT[facility] HNO ID: [id number] Author: Elmira Clement) Podlogar Service: (none) Author Type: Nurse Practitioner Type: Progress Notes Filed: 05/30/2018 8:28 AM Note Text: 05/29/2018 Patient presents with: Hives: no new meds or skin care or shampoos started tuesday. was at [facility] last evening SUBJECTIVE: This is a 43 year old that is here today for Above Complaints. In ER on 05/27 and 05/28 for hives. Given a prescription for prednisone for which she is on day 3 of and epi-pen. She was treated with epi IM and benadryl IM yesterday in ER. Presents today for follow-up ONSET: Tuesday woke up with rash LOCATION: entire body DURATION:went away intially tuesday when went to ER then came back Tuesday and reports it was worse CHARACTERISTICS:burnng feeling AGGRAVATING FEATURES: nothing ALLIEVIATING FEATURES: medicine from ER Denies fever, chills, new lotions, soaps, shampoos, detergents, prescribed, OTC, herbal medications, traveling, contacts with rashes, new foods, plant/animal exposure, new clothing or bedding, SOB, dyspnea, wheezing, drooling, lip swelling or feeling like throat is closing. Also denies stress. She reports she did not get her epi-pen filled d/t cost of $80.00. Patient is asking for note to be off work until she finds out what hives are from. PAST MEDICAL HISTORY Diagnosis Date - Acne Vulgaris: Grade IV Nodulocystic--scarring 08/28/2009 - Adjustment disorder with depressed mood - Allergic rhinitis, cause unspecified 03/02/2006 - Depressive disorder - Fibromyalgia - Myalgia and myositis, unspecified - Other and unspecified hyperlipidemia 2003 - Other chronic cystitis 09/20/2005 - Palpitations 07/19/2005 - Systemic lupus erythematosus (HCC) - Thyroid nodule - Thyroiditis, unspecified 2000 had PP thyroiditis / hyperthyroidism, treated with radioactive iodine, was on Synthroid for a while, but recent TSH's are normal off of meds - Tobacco abuse ALLERGIES Iodinated Contrast- Oral And Iv Dye; Augmentin [Amoxicillin-Pot Clavulanate]; Bactrim [Sulfamethoxazole-Trimethoprim]; Cetirizine; Environmental Allergies [Other]; Ibuprofen; Iv Contrast [Iodine]; Macrodantin [Nitrofurantoin Macrocrystalline]; Nsaids (Non-Steroidal Anti-Inflammatory Drug); Phenazopyridine; Pseudoephedrine Hcl; Pyridium [Phenazopyridine Hcl] MEDICATIONS Current Outpatient Prescriptions: EPINEPHrine (EPIPEN) 0.3 mg/0.3 mL auto-injector Inject 0.3 mL intramuscularly as needed. Inject full content of the syringe. predniSONE (DELTASONE) 10 mg tablet Take 5 tablets by mouth once daily. famotidine (PEPCID) 20 mg tablet Take 1 tablet by mouth twice daily for 14 days. 20mg PO BID times 3 days then PRN sertraline (ZOLOFT) 100 mg tablet Take 1 tablet by mouth once daily. clonazePAM (KLONOPIN) 1 mg tablet Take 1 tablet by mouth at bedtime as needed for Anxiety. No current facility-administered medications for this visit. Medications and allergies reviewed by this provider. 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 OBJECTIVE: LMP 04/07/2012 .BP 132/86 (BP Site: Left Arm, BP Position: Sitting, BP Cuff Size: Regular Adult) Pulse 64 Resp 18 Wt 78.5 kg (173 lb) LMP 04/07/2012 BMI 28.79 kg/m? APPEARANCE Well appearing, alert, in no acute distress, well-hydrated, well nourished. SKIN; No rashes observed today. Left foot second two slightly reddened from scratching. ASSESSMENT/PLAN: 1. Hives - ICD9: 708.9, ICD10: L50.9 (primary diagnosis) - resolved - Likely viral or allergic etiology discussed with patient - no red flag exam findings - red flag symptoms discussed, verbalizes understanding - discussed since hives have resolved I can not write her off work until seeing an extension forester- as it may take some time to see one - finish prednisone taper - Anti itch therapy of Rx for Atarax and triamcinolone to be used sparingly to areas of itching recommended prn - discussed not driving operating heavy machinery while take vistaril. Discussed with patient not to take benadryl of klonopin at same time as vistaril, verbalizes understanding - virtual voucher for epi-pen provided - CONSULT TO ALLERGY/IMMUNOLOGY - Follow up if symptoms persist or worsen, to ER with red flag symptoms 2. Screening for breast cancer - ICD9: V76.10, ICD10: Z12.31 - [facility] SCREENING Elmira Evans APRN.REFINERY SUPERINTENDENT Prescription instructions reviewed with patient as applicable. Patient advised if symptoms do not improve or if symptoms worsen sooner, to contact their primary care physician. Potential red flag symptoms discussed with the patient. Reviewed appropriate action plan to take if red flag symptoms occur. Patient agreeable to treatment plan. ED NOTE Observed: 05/28/2018 Status: COMPLETED Source: [place] 9:06 PM [facility] REPOSITORY HNO ID: [id number] Author: Evangelist DixonRn) KITTY Faust Service: Emergency Medicine Author Type: Registered Nurse Type: ED Notes Filed: 05/28/2018 9:09 PM Note Text: To Xray at this time. ED NOTE Observed: 05/28/2018 Status: COMPLETED Source: [place] 8:24 PM [facility] REPOSITORY HNO ID: [id number] Author: Trish DixonRn) KITTY Gibson Service: Emergency Medicine Author Type: Registered Nurse Type: ED Notes Filed: 05/28/2018 8:24 PM Note Text: Pt reports itching has stopped, no discomfort at this time ED NOTE Observed: 05/28/2018 Status: COMPLETED Source: [place] 7:35 PM [facility] REPOSITORY HNO ID: [id number] Author: Evangelist Wang) KITTY Faust Service: Emergency Medicine Author Type: Registered Nurse Type: ED Notes Filed: 05/28/2018 7:44 PM Note Text: quality assurance monitor body applied. ED PROV NOTE Observed: 05/28/2018 Status: COMPLETED Source: [place] 7:27 PM [facility] REPOSITORY HNO ID: [id number] Author: Dwain Bazzi DO Service: Emergency Medicine Author Type: Physician Type: ED Provider Notes Filed: 05/28/2018 9:39 PM Note Text: ED Provider Note Patient Name: Kat Arita SERVICE DATE: 05/28/18 History Patient presents with: Jes Arita presents with urticaria that has gotten worse. She states she was seen in the emergency department yesterday. The hives started around her umbilical incision. Today they have spread to all over her body, mainly her upper extremities and lower extremities. They come and go. She thinks there in between her fingers at ?2. She denies that she has been outside or that anyone in her family has the same affliction. She denies any throat closing but feels mildly short of breath and shaky. She did fill her prescriptions and take her prednisone. She has been taking Benadryl without relief of her symptoms. She denies contact with any new substances. She states that she feels that these and she hives have gotten much worse. PAST MEDICAL HISTORY Diagnosis Date - Acne Vulgaris: Grade IV Nodulocystic--scarring 08/28/2009 - Adjustment disorder with depressed mood - Allergic rhinitis, cause unspecified 03/02/2006 - Depressive disorder - Fibromyalgia - Myalgia and myositis, unspecified - Other and unspecified hyperlipidemia 2003 - Other chronic cystitis 09/20/2005 - Palpitations 07/19/2005 - Systemic lupus erythematosus (HCC) - Thyroid nodule - Thyroiditis, unspecified 2000 had PP thyroiditis / hyperthyroidism, treated with radioactive iodine, was on Synthroid for a while, but recent TSH's are normal off of meds - Tobacco abuse PAST SURGICAL HISTORY Procedure Laterality Date - BIOPSY OF BREAST 09/09/2010 U/S Core biopsy left breast - DELIVERY ONLY , low cervical - DELIVERY ONLY , low cervical - DELIVERY ONLY , low cervical - SECTION HX - COLONOSCOP W/ OR W/O BRSH SPEC 01/08/16 Colonoscopy ([facility]) - COLONOSCOPY 2014 - DANDC DIAG AND/OR THERAP, NOT OB 2013 w/ ablation - EGD W/O OR W/BRUSH/WASH 01/08/16 EGD ([facility]) - HYSTERECTOMY HX 2014 Dr Harris- both ovaries remain - LIGATE FALLOPIAN TUBE Tubal ligation - REMOVAL ADENOIDS,PRIMARY,<12 Y/O Adenoidectomy - REMOVAL OF TONSILS,<12 Y/O Tonsillectomy - REPAIR UMBILICAL FADUMO,5+Y/O,REDUC 2006 FAMILY HISTORY Problem Relation Age of Onset - Hypertension Father - Stroke Father - Alcohol/Drug Father - Heart Mother - Cancer Mother skin - Coronary Artery Disease Mother - Psychiatry Mother - Cancer Maternal Grandmother lung / brain - Breast Cancer Maternal Grandmother - Colon Cancer Maternal Grandfather - Heart Paternal Grandfather - other (MULTIPLE SCLEROSIS) Maternal Aunt - Breast Cancer Other MGM AND MGGM - in their 40's - Colon Cancer Other MGF - in his 60's Social History Social History Main Topics - Smoking status: Current Every Day Smoker Packs/day: 0.50 Years: 17.00 Types: Cigarettes - Smokeless tobacco: Never Used - Alcohol use No - Drug use: No - Sexual activity: Yes Partners: Male control/ protection: Tubal Ligation, Surgical Comment: hysterectomy ALLERGIES Allergen Reactions - Iodinated Contrast-* Hives - Augmentin [Amoxicil* Hives - Bactrim [Sulfametho* Hives, Swelling - Cetirizine Other: See Comments Other reaction(s): Palpitations - Environmental Aller* Dust mites, molds - Ibuprofen Hives, Swelling - Iv Contrast [Iodine] Rash, Swelling - Macrodantin [Nitrof* Hives - Nsaids (Non-Steroid* Hives - Phenazopyridine Swelling Other reaction(s): Hives - Pseudoephedrine Hcl Other: See Comments Other reaction(s): Palpitations - Pyridium [Phenazopy* Rash Review of Systems Constitutional: Negative. Negative for chills and fever. HENT: Negative. Negative for sore throat and trouble swallowing. Eyes: Negative. Respiratory: Positive for shortness of breath. Negative for cough and wheezing. Cardiovascular: Negative. Negative for chest pain. Gastrointestinal: Negative. Negative for abdominal pain, nausea and vomiting. Genitourinary: Negative. Musculoskeletal: Negative. Negative for neck pain and neck stiffness. Skin: Positive for rash. Neurological: Negative. Negative for headaches. Physical Exam BP 125/72 Pulse 78 Temp (Src) 97.3 (Temporal Artery) Resp 20 Ht 5' 5 (1.65m) Wt 170 lb (77.1kg) SpO2 100% LMP 04/07/2012 BMI 28.29 kg/(m2). Physical Exam Constitutional: She is oriented to person, place, and time. She appears well-developed and well-nourished. nontoxic appearing HENT: Head: Normocephalic and atraumatic. Mouth/Throat: Oropharynx is clear and moist. airway patent. No drooling or trismus. Eyes: Pupils are equal, round, and reactive to light. EOM are normal. Neck: Normal range of motion. Neck supple. Cardiovascular: Normal rate, regular rhythm, normal heart sounds and intact distal pulses. Pulmonary/Chest: Effort normal and breath sounds normal. No respiratory distress. She has no wheezes. She has no rales. She exhibits no tenderness. Abdominal: Soft. Bowel sounds are normal. There is no tenderness. There is no rebound. Musculoskeletal: Normal range of motion. Neurological: She is alert and oriented to person, place, and time. She has normal reflexes. No cranial nerve deficit. Skin: Skin is warm and dry. Rash (Diffuse, blanchable hives on torso, and bilateral upper and lower extremities.) noted. Psychiatric: She has a normal mood and affect. Nursing note and vitals reviewed. Diagnostic Testing ED Labs Ordered and Reviewed - No data to display Procedures ED Course / Clinical Impression Clinical Impressions as of May 28 2135 Hives Allergic reaction, initial encounter MDM / Disposition / Plan Patient was placed on a quality assurance monitor chassis. As her hives have gotten progressively worse and she feels short of breath. I do feel that she would benefit from epinephrine as she has already been taking antihistamine and a corticosteroid. She was administered Benadryl 50 mg intramuscularly for the itching, and she was administered 0.3 mg of epinephrine intramuscularly. She'll be monitored to show signs of improvement. At this point in time, she'll be signed out to the overnight physician and will make final disposition which is anticipated discharge home. She is to continue her Benadryl and steroid burst that she had been given yesterday from the emergency department. In the event that this is idiopathic hives antihistamine problem, I will write her prescription for an epinephrine pen. I strongly suggested that she follow- up with her primary care physician and/or an extension forester. She'll be signed out to Dr. Bazzi in stable condition. Reevaluation at 21:37. Patient felt better. Patient states her hives have completely resolved. Patient denies any shortness of breath. Patient was instructed to continue her prednisone as prescribed. Patient was instructed to follow-up with her primary care physician in 1-2 days. Patient understood and was agreeable with the plan. All questions were answered. Disposition The patient was given RX and discharged. Counseled patient regarding . As well as the need for follow-up. Discharged home with verbal and written instructions. They were instructed to return as needed for persistent or worsening symptoms or any new concerns. Medication(s) prescribed include Epinephrine Pen. Condition at disposition is stable and improved. SIGNATURE: MD Dwain Orosco, DO 05/28/182138 ED NOTE Observed: 05/28/2018 Status: COMPLETED Source: [facility] 7:23 PM [facility] REPOSITORY HNO ID: [id number] Author: Carolina DixonRnRory Curry RN Service: Emergency Medicine Author Type: Registered Nurse Type: ED Notes Filed: 05/28/2018 7:24 PM Note Text: Here yesterday w/ hives. Returns today w/ worsening hives, itching. States taking rx given. Pt Anxious, restless. No dyspnea noted. ED NOTE Observed: 05/27/2018 Status: COMPLETED Source: [facility] 4:22 PM [facility] REPOSITORY HNO ID: [id number] Author: Trish Wang) KITTY Gibson Service: Emergency Medicine Author Type: Registered Nurse Type: ED Notes Filed: 05/27/2018 4:23 PM Note Text: Pt alert and oriented, thankful for the care she was given. ED NOTE Observed: 05/27/2018 Status: COMPLETED Source: [facility] 4:00 PM [facility] REPOSITORY HNO ID: [id number] Author: Trish Gibson RN Service: Emergency Medicine Author Type: Registered Nurse Type: ED Notes Filed: 05/27/2018 4:07 PM Note Text: Dr at bedside. ED NOTE Observed: 05/27/2018 Status: COMPLETED Source: [facility] 3:15 PM [facility] REPOSITORY HNO ID: [id number] Author: Clementina DixonRn) KITTY Partida Service: Emergency Medicine Author Type: Registered Nurse Type: ED Notes Filed: 05/27/2018 3:15 PM Note Text: Pt ambulates to bathroom with a steady gait ED NOTE Observed: 05/27/2018 Status: COMPLETED Source: [facility] 2:53 PM [facility] REPOSITORY HNO ID: [id number] Author: Clementina DixonRn) KITTY Partida Service: Emergency Medicine Author Type: Registered Nurse Type: ED Notes Filed: 05/27/2018 2:58 PM Note Text: Patient informed: the name of medication, why we are giving it, possible side effects, what they may expect to feel, and was offered a chance to ask questions, prior to the administration of tramadol, prednisone, pepcid and benadryl. ED NOTE Observed: 05/27/2018 Status: COMPLETED Source: [facility] 2:41 PM [facility] REPOSITORY HNO ID: [id number] Author: Clementina (Rn) KITTY Partida Service: Emergency Medicine Author Type: Registered Nurse Type: ED Notes Filed: 05/27/2018 2:41 PM Note Text: Lights off for patient comfort; as pt reports she is now sensitive to light with this headache. ED PROV NOTE Observed: 05/27/2018 Status: COMPLETED Source: [facility] 2:[address] [facility] REPOSITORY HNO ID: [id number] Author: Dhruv Shepherd MD Service: Emergency Medicine Author Type: Physician Type: ED Provider Notes Filed: 05/27/2018 4:39 PM Note Text: ED Provider Note Patient Name: Kat Arita SERVICE DATE: 05/27/18 History Patient presents with: Allergic Reaction Pt presents with itchy, red, rash, mainly to her abdomen Took prednisone without any improvement, did not take benadryl as she was supposed ot work today and did not want to be tired, however symptoms were progressing and she came to the ED Hives Severity: Mild Onset quality: Gradual Progression: Worsening Chronicity: New Associated symptoms: headaches and rash Associated symptoms: no abdominal pain, no chest pain, no cough and no wheezing PAST MEDICAL HISTORY Diagnosis Date - Acne Vulgaris: Grade IV Nodulocystic--scarring 08/28/2009 - Adjustment disorder with depressed mood - Allergic rhinitis, cause unspecified 03/02/2006 - Depressive disorder - Fibromyalgia - Myalgia and myositis, unspecified - Other and unspecified hyperlipidemia 2003 - Other chronic cystitis 09/20/2005 - Palpitations 07/19/2005 - Systemic lupus erythematosus (HCC) - Thyroid nodule - Thyroiditis, unspecified 2000 had PP thyroiditis / hyperthyroidism, treated with radioactive iodine, was on Synthroid for a while, but recent TSH's are normal off of meds - Tobacco abuse PAST SURGICAL HISTORY Procedure Laterality Date - BIOPSY OF BREAST 09/09/2010 U/S Core biopsy left breast - DELIVERY ONLY , low cervical - DELIVERY ONLY , low cervical - DELIVERY ONLY , low cervical - SECTION HX - COLONOSCOP W/ OR W/O BRSH SPEC 01/08/16 Colonoscopy ([facility]) - COLONOSCOPY 2014 - DANDC DIAG AND/OR THERAP, NOT OB 2012 w/ ablation - EGD W/O OR W/BRUSH/WASH 01/08/16 EGD ([facility]) - HYSTERECTOMY HX 2014 Dr Harris- both ovaries remain - LIGATE FALLOPIAN TUBE Tubal ligation - REMOVAL ADENOIDS,PRIMARY,<12 Y/O Adenoidectomy - REMOVAL OF TONSILS,<12 Y/O Tonsillectomy - REPAIR UMBILICAL FADUMO,5+Y/O,REDUC 2006 FAMILY HISTORY Problem Relation Age of Onset - Hypertension Father - Stroke Father - Alcohol/Drug Father - Heart Mother - Cancer Mother skin - Coronary Artery Disease Mother - Psychiatry Mother - Cancer Maternal Grandmother lung / brain - Breast Cancer Maternal Grandmother - Colon Cancer Maternal Grandfather - Heart Paternal Grandfather - other (MULTIPLE SCLEROSIS) Maternal Aunt - Breast Cancer Other MGM AND MGGM - in their 40's - Colon Cancer Other MGF - in his 60's Social History Social History Main Topics - Smoking status: Current Every Day Smoker Packs/day: 0.50 Years: 17.00 Types: Cigarettes - Smokeless tobacco: Never Used - Alcohol use No - Drug use: No - Sexual activity: Yes Partners: Male control/ protection: Tubal Ligation, Surgical Comment: hysterectomy ALLERGIES Allergen Reactions - Iodinated Contrast-* Hives - Augmentin [Amoxicil* Hives - Bactrim [Sulfametho* Hives, Swelling - Cetirizine Other: See Comments Other reaction(s): Palpitations - Environmental Aller* Dust mites, molds - Ibuprofen Hives, Swelling - Iv Contrast [Iodine] Rash, Swelling - Macrodantin [Nitrof* Hives - Nsaids (Non-Steroid* Hives - Phenazopyridine Swelling Other reaction(s): Hives - Pseudoephedrine Hcl Other: See Comments Other reaction(s): Palpitations - Pyridium [Phenazopy* Rash Review of Systems Respiratory: Negative for cough and wheezing. Cardiovascular: Negative for chest pain. Gastrointestinal: Negative for abdominal pain. Skin: Positive for rash. Neurological: Positive for headaches. All other systems reviewed and are negative. Physical Exam BP 132/79 Pulse 96 Temp 97.8 Resp 18 Ht 5' 3 (1.60m) Wt 170 lb (77.1kg) SpO2 98% LMP 04/07/2012 BMI 30.12 kg/(m2). Physical Exam Constitutional: She is oriented to person, place, and time. She appears well-developed and well-nourished. HENT: Head: Normocephalic and atraumatic. Mouth/Throat: Oropharynx is clear and moist. Eyes: Right eye exhibits no discharge. Left eye exhibits no discharge. Neck: Neck supple. No JVD present. Cardiovascular: Normal rate, regular rhythm and normal heart sounds. Pulmonary/Chest: Effort normal and breath sounds normal. No stridor. No respiratory distress. She has no wheezes. She exhibits no tenderness. Abdominal: Soft. Neurological: She is alert and oriented to person, place, and time. Skin: No rash noted. Diffuse, small, hives to torso, abdomen, and a couple of smaller sparse ones to the extremities Moderate confluence of hives around healed abdominal incision Psychiatric: She has a normal mood and affect. Her behavior is normal. Judgment and thought content normal. Nursing note and vitals reviewed. Diagnostic Testing ED Labs Ordered and Reviewed - No data to display Procedures ED Course / Clinical Impression Clinical Impressions as of May 27 1626 Urticaria Allergic reaction, initial encounter Other migraine without status migrainosus, not intractable MDM / Disposition / Plan 43 year old female with multiple reported allergies presents with diffuse urticaria. Etiology is not apparent, thru history/questioning/physical. Pt concerned that she was not improving because she took 40mg of leftover prednisone at home. Pt treated for urticaria of likely allergic etiology. No airway, or respiratory compromise noted in the ED. Pt improved with steroids, benadryl, and pepcid in the ED, w ultram for her migraine headache. DC home w short course of steroids, and OTC H1,H2 blockers. [facility] Disposition The patient was discharged. Counseled patient regarding suspected diagnosis. As well as the need for follow-up. Discharged home with verbal and written instructions. They were instructed to return as needed for persistent or worsening symptoms or any new concerns. Condition at disposition is improved. SIGNATURE: MD Dhruv Flores MD 05/27/18 0778 Dhruv Shepherd MD 05/27/18 1639 ED NOTE Observed: 05/27/2018 Status: COMPLETED Source: [facility] 2:[address] [facility] REPOSITORY HNO ID: [id number] Author: Clementina Wang) KITTY Partida Service: Emergency Medicine Author Type: Registered Nurse Type: ED Notes Filed: 05/27/2018 2:39 PM Note Text: Hives to low abd and groin area upon waking up today. The longer pt was here, she started to complain now of headache and stomach pain. ED NOTE Observed: 05/27/2018 Status: COMPLETED Source: [facility] 2:[address] [facility] REPOSITORY HNO ID: [id number] Author: Carolina Curry RN Service: Emergency Medicine Author Type: Registered Nurse Type: ED Notes Filed: 05/27/2018 2:31 PM Note Text: Hives to low abd/groin area CNCO Observed: 05/16/2018 Status: COMPLETED Source: [facility] 12:[address] [facility] REPOSITORY Letter Text Kat Arita [address] [facility] [address] 05/16/2018 [facility] #: [id number] Dear , Due to a change in the provider's schedule it has been necessary to reschedule your Appointment. Your original appointment was scheduled for 05/18/2018 at 10:00 AM with Dhruv Billy M.D. Your new appointment is now scheduled on 08/31/2018 at 2:00 PM with Dhruv Billy M.D. If this new appointment is not convenient for you, please contact our office at [phone]. Thank you for choosing the [facility] as your Healthcare Provider . Sincerely, Family Medicine Appointment Office ED DOC Observed: 04/12/2018 Status: UNK Source: [facility] 3:37 PM [facility] REPOSITORY This is a preliminary report only, as the practitioner review and authentication has not occurred. ED DOC Observed: 04/12/2018 Status: UNK Source: [facility] 3:37 PM [facility] REPOSITORY PHYSICIAN ASSESSMENT RECORDS : Discharge Report Event Time: 04/12/2018 15:10 : FlexChartData Event Time: 04/12/2018 16:00 Status: Signed [facility] Kat Arita [[id number]] Attending Physician 43 / F / 1975 Addendum (V2b) Chart created at 04/12/2018 15:28 by Andrew Garcia Chart closed at 04/12/2018 15:29 Entry in Emergency Department at 04/12/2018 12:30, departure at 04/12/2018 15:37 Patient Name: Kat Arita Record Number: [id number] Date: 04/12/2018 15:28 Entered Department at: 04/12/2018 12:30 Patient Seen at: 04/12/2018 14:00 PCP: [facility] Chief Complaint:PRESENTS WITH C/O HEADACHE SINCE TUESDAY, SYNCOPE AT WORK ON THAT DAY AND TAKEN TO [place] [facility] FOR EVALUATION AND HEAD CT. DIAGNOSED WITH MIGRAINE AT THAT TIME. DIZZINESS CONTINUES TODAY SINCE THAT TIME. WEAKNESS NOTED ON RIGHT HAND. STATES THAT SHE HAS WEAKNESS AND NUMBESS ON THE RIGH SIDE. PHOTOPHOBIA AT TRIAGE. UNABLE TO COMPLETE SNELLEN CHART. DIZZINESS WORSE WITH POSITION CHANGES. UNABLE TO ASSESS FACIAL SYMETRY AT TRIAGE. Re-Evaluation: 15:28: pt had her PMD send her to ED, though CT and CTA was on Tuesday. I dont feel this is a new change, and suggested she schedule appoint/ment with PMD. [facility] PATIENT NAME: KAT ARITA [address] [facility] [address] MEDICAL REC #: [id number] [place] [address] EMERGENCY DEPARTMENT CHART EMERGENCY DEPARTMENT PHYSICIAN Conor x1 day, follow up to be arranged, I dont feel needs emergent MRI. Very dramatic patient, and records from [place] suggest multiple workups. . : FlexChartData Event Time: 04/12/2018 15:40 Status: Signed [facility] Katshay Arita [[id number]] Attending Physician / 1975 Chart (V2b) Chart created at 04/12/2018 14:58 by Andrew Garcia Chart closed at 04/12/2018 15:09 Entry in Emergency Department at 04/12/2018 12:30, departure at 04/12/2018 15:37 Patient Name: Kat Arita Record Number: [id number] Date: 04/12/2018 14:58 Entered Department at: 04/12/2018 12:30 Patient Seen at: 04/12/2018 14:00 Historian: Patient PCP: CHALINO Chief Complaint:PRESENTS WITH C/O HEADACHE SINCE TUESDAY, SYNCOPE AT WORK ON THAT DAY AND TAKEN TO [place] [facility] FOR EVALUATION AND HEAD CT. DIAGNOSED WITH MIGRAINE AT THAT TIME. DIZZINESS CONTINUES TODAY SINCE THAT TIME. WEAKNESS NOTED ON RIGHT HAND. STATES THAT SHE HAS WEAKNESS AND NUMBESS ON THE RIGH SIDE. PHOTOPHOBIA AT TRIAGE. UNABLE TO COMPLETE SNELLEN CHART. DIZZINESS WORSE WITH POSITION CHANGES. UNABLE TO ASSESS FACIAL SYMETRY AT TRIAGE. Triage Note reviewed and Initial Vital Signs reviewed. Temperature: 98.4 F (36.9 C). Pulse: 101. Respiratory Rate: 18. Blood-pressure: 151/87. Oxygen Saturation: 99%. History of Present Illness: [facility] PATIENT NAME: KAT ARITA [address] [facility] [address] MEDICAL REC #: [id number] [place] [address] EMERGENCY DEPARTMENT CHART EMERGENCY DEPARTMENT PHYSICIAN Patient is here with a headache since Tuesday. She was seen at [facility] and discharged home. There was a question of allergy to contrast as she felt swelling after her CT scan with contrast. She is presented here because it has not improved. He describes weakness of the right side arm and leg. She describes having headaches all month, starting earlier this year. She does have multiple medical problems including fibromyalgia. She does not take Imitrex or other migraine type meds. There is been no trauma to her head. She is here with her family now saying that the right side is so weak. She was brought back to the nursing staff could not assess her further and said they thought her right eye was a little swelled. There is concerned about her history of contrast allergy. She describes her headache is sharp and aching right side of the head. No visual changes at this time. HPI Elements: Onset: 3 Days ago; Timing: Sudden Onset; Quality: Aching; Severity: maximum Moderate, now Moderate; Context: At Rest; Exacerbated by: Nothing; Alleviated by: Nothing Review of Systems. Constitutional: negative for Fever Eyes: negative for Eye Pain Ear/Nose/Throat: negative for Sore Throat Cardio-Vascular: negative for Chest Pain Respiratory: negative for Hemoptysis GI: negative for Abd. Pain : negative for Hematuria Musculo-Skeletal: negative for Back Pain, Right arm and leg weakness Neurological: positive for Headache Hem/Endo: negative for Bleeding Immunology: negative for Joint Pain All other systems reviewed and negative.. Past History, Medications, Allergies, Social History and Family History reviewed in nurses note. Medications: Reviewed RN Note. ZOLOFT 100MG TABLET - PO, MEDS VERIFIED WITH PT 04/12/18 SM Allergies: Reviewed RN Note [facility] PATIENT NAME: KAT ARITA [facility] [address] [place] MEDICAL REC #: [id number] [place] [address] EMERGENCY DEPARTMENT CHART EMERGENCY DEPARTMENT PHYSICIAN Bactrim(Hives), PYRIDI(Hives), NSAIDS(Hives), Toradol(Hives), Reglan(Hives), IVP DYE(Anaphylactic Reaction) Social History: Reviewed RN Note. Tobacco: Smoking. Alcohol: None. Family History: Reviewed RN Note Physical Examination: General: Alert and Well Developed; EOMI and PERRLA, no lid swelling HEENT: Normal ENT inspection. Eyes: Lids Normal; . Oropharynx / Throat: Normal Pharynx. Symmetric face and there is no eye swelling on my exam. Eyebrows elevate equally.. 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 With encouragement both of them increase of a little bit. But the patient did ambulate to the room. Skin: No rash, No Petechiae, Warm and Dry; No rashes no heat no warmth no swelling Psychological: Mood/Affect Normal and Normal Memory/Judgment; Very flat affect. Talks with her eyes closed. She has no neck stiffness. Medical Decision Making I do not believe that this is an acute CVA or one from 3 days ago. Her symptoms are bilateral and she has such a weak grasp left and right and anxiety I think is overwhelming on this. I do not find a focal loss and if she had a CTA, I do not think she has an acute bleed as she does not have a toxic appearing headache at this time. Is to note the nursing notes have shown me and he has talked to me that she was unable to visualize a Snellen chart even on the largest of numbers. Yet she looks at me to talk to me at times. There is no facial asymmetry at this time. Re-Evaluation: [facility] PATIENT NAME: KAT ARITA [facility] [address] [place] MEDICAL REC #: [id number] [place] [address] EMERGENCY DEPARTMENT CHART EMERGENCY DEPARTMENT PHYSICIAN 15:09: I am awaiting the records from [place]. Unless there is a significant white count or a CT finding, I expect to be discharging her to follow with the neurology appointment she has made already.. Additional Information: Old records reviewed. Discussed Results, Diagnosis and Follow-Up with Patient. Clinical Impression: 1. Headache 2. Anxiety Disposition: Discharged *Home at 12 Apr 2018, 15:09. Condition: Good MSE completed. I was the primary ED attending.. ===DISCHARGE REPORT=== : Discharge Report Event Time: 04/12/2018 15:10 Status: Draft Reasons to Return to the ER: You must return to the ER for any new, worsening or changing symptoms, or if you feel more ill or sick in any way. This is the most important thing to remember. Follow-up: The care you received in the ER was given on an emergency basis only, and it is often not possible to completely treat or diagnose a problem in a single ER visit. You must see your follow-up doctor for a recheck within a week unless you receive instructions with a different timeframe for follow-up. Please follow all your discharge instructions. Medications: Unless the ER doctor tells you differently, you should take [facility] PATIENT NAME: KAT ARITA [facility] [address] [place] MEDICAL REC #: [id number] [place] [id number] EMERGENCY DEPARTMENT CHART EMERGENCY DEPARTMENT PHYSICIAN all your regular medications and any new medications prescribed today. Because it is not possible for the ER doctor to review all of your medication side effects or interactions, you must review possible side effects and interactions with your pharmacist when you get your prescriptions filled. EKG and Radiology Results: A online advertising manager or radiologist will review any EKG or radiology results provided by the ER doctor. We will contact you if the results in the final EKG or radiology reports require a change in treatment. Culture Results: Cultures may have been ordered during your ER visit. We will contact you if the culture results require a change in treatment. Referrals: Most referrals to specialists come from the on-call list You should make your regular doctor aware of any referrals before you schedule the appointment so that they are aware and can make suggestions DIAGNOSIS: Headache, Anxiety UNLESS THE ER DOCTOR GIVES YOU OTHER INSTRUCTIONS, YOU MUST SEE YOUR FOLLOW-UP DOCTOR WITHIN 2 TO 3 DAYS FOR RECHECK YOU MUST RETURN TO THE ER RIGHT AWAY FOR ANY OF THE FOLLOWING:Increasing or changing painNew or increasing vision problemsNew or increasing problems with balanceNew or increasing confusion, dizziness or weaknessNew or increasing vomitingNew or increasing fever or chillsNew or increasing neck stiffnessNew or increasing numbness or weakness in the arms or legs REFERRAL Chuck Gee MD (Neurology), , fax: [facility] PATIENT NAME: KAT ARITA [address] [facility] [address] [place] MEDICAL REC #: [id number] [place] [address] EMERGENCY DEPARTMENT CHART EMERGENCY DEPARTMENT PHYSICIAN Please call the above number to schedule a follow-up appointment. next week MEDICATIONS We have given you these prescriptions that you must fill and start taking: [place] 5 mg-325 mg tablet, count:4, Dose = 1, count:4, q4-6h, count:4, Number of Refills = 0, count:4, R51, count:4 COMMENTS: Patient Satisfaction: Within the first few days after your visit, you will receive an email and/or phone call regarding your visit. We value your feedback, and would appreciate it if you would take the time to complete this short survey. If you receive a call, it will be between 6p and 8p. My signature below indicates that I have received and understand the oral instructions regarding my medical problem. I also acknowledge receipt of this written instruction sheet including a list of major tests and procedures ordered during my visit. I will arrange for follow-up care as indicated by these instructions and referrals. This signed original will be kept in my medical record. Your signature below indicates consent for Case Management to contact [facility] in an effort to meet your ongoing healthcare needs. This will allow forcontinuity of care once you leave the Emergency Department. This exchange of informationwill include, but not be limited to, disclosure of your patient information and possible release of records. : MistyDabrea Event Time: 04/12/2018 16:00 : FlexChartData [facility] PATIENT NAME: KAT ARITA [address] [facility] [address] 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 DIAGNOSED WITH MIGRAINE AT THAT TIME. DIZZINESS CONTINUES TODAY SINCE THAT TIME. WEAKNESS NOTED ON RIGHT HAND. STATES THAT SHE HAS WEAKNESS AND NUMBESS ON THE RIGH SIDE. PHOTOPHOBIA AT TRIAGE. UNABLE TO COMPLETE SNELLEN CHART. DIZZINESS WORSE WITH POSITION CHANGES. UNABLE TO ASSESS FACIAL SYMETRY AT TRIAGE. Arrival Date: 04/12/2018 12:30 Triage Date: 04/12/2018 13:06 Mode of Arrival: *Privately Owned Vehicle Transfer From: * Home WC: N Language: Liberian Transport: Ambulatory/Walk In [facility] PATIENT NAME: LYLAKAT [address] [facility] [address] [place] MEDICAL REC #: [id number] [place] [address] EMERGENCY DEPARTMENT CHART EMERGENCY DEPARTMENT PHYSICIAN BED A04 In: 04/12/2018 13:15:56 04/12/2018 13:15:56 JIR A04 (Removed From) Out: 04/12/2018 15:37:43 04/12/2018 15:37:43 SXM PROVIDERS KITTY Goodman Provider Contact: 04/12/2018 13:37:38 SXM End: ROBERTO CARLOS Bernal Provider Contact: 04/12/2018 13:41:50 [facility] End: MD Andrew Garcia Provider Contact: 04/12/2018 14:00:36 BAM End: TRIAGE HISTORY ALLERGIES Allergic To: Bactrim - Hives 04/12/2018 13:16 JIR Allergic To: PYRIDI - Hives 04/12/2018 13:16 JIR Allergic To: NSAIDS - Hives 04/12/2018 13:16 JIR Allergic To: Toradol - Hives 04/12/2018 13:16 JIR Allergic To: Reglan - Hives 04/12/2018 13:16 JIR Allergic To: IVP DYE - Anaphylactic Reaction 04/12/2018 13:16 JIR CURRENT MEDS Name: ZOLOFT 100MG TABLET - PO 04/12/2018 14:00 SXM Freq: 1 time a day - Last dose today Name: MEDS VERIFIED WITH PT 04/12/18 SM 04/12/2018 14:00 [facility] PATIENT NAME: ETIENNE ARITASHAY Samano [address] [facility] [address] [place] MEDICAL REC #: [id number] [place] [address] EMERGENCY DEPARTMENT CHART EMERGENCY DEPARTMENT PHYSICIAN SXM ILLNESS Illness: Depression 04/12/2018 13:16 JIR Illness: Fibromyalgia 04/12/2018 13:16 JIR Illness: Migraines 04/12/2018 13:16 JIR Illness: *Family History of CA 04/12/2018 13:16 JIR Illness: *Family History of CAD 04/12/2018 13:16 JIR Illness: *Family History of CVA 04/12/2018 13:16 JIR Illness: *Family History of Diabetes 04/12/2018 13:16 JIR Illness: *Family History of HTN 04/12/2018 13:16 JIR Illness: Anxiety 04/12/2018 13:16 JIR PAST SURGERY HIST Surgery: 04/12/2018 13:16 JIR Surgery: Hysterectomy- 04/12/2018 13:16 JIR Surgery: Hernia Repair 04/12/2018 13:16 JIR PAST SOCIAL HIST Social History: Behavior age appropriate 04/12/2018 13:16 JIR Social History: Communicates without difficulty 04/12/2018 13:16 JIR Social History: Lives with family or significant other 04/12/2018 13:16 JIR Social History: Alcohol - None 04/12/2018 13:16 JIR Social History: Smoker-0.5 PPD 04/12/2018 13:16 JIR [facility] PATIENT NAME: KAT ARITA [address] [facility] [address] [place] MEDICAL REC #: [id number] [place] [address] EMERGENCY DEPARTMENT CHART EMERGENCY DEPARTMENT PHYSICIAN Social History: Denies Domestic Violence 04/12/2018 13:16 JIR Social History: Denies thoughts of self harm. 04/12/2018 13:16 JIR Social History: Have you traveled in the past month? 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 04/12/2018 13:24 JIR 04/12/2018 14:30 RODOLFO AWARE OF RECORD REQUEST. 04/12/2018 14:30 SXM 04/12/2018 14:38 PT UP TO THE BEDISDE COMMODE BY HERSELF WITHOUT DIFFICULTY. 04/12/2018 14:38 SXM 04/12/2018 15:36 PT AXOX3. SKIN WARM AND DRY. PT REPORTS HEADACHE WITH NAUSEA AND PHOTOPHOBIA. PT SEEN AT [place] [facility] ON TUE DAY FOR THE SAME. NO FACIAL DROOP NOTED. NO SLURRED SPEECH NOTED. BILATERAL ARM WEAKNESS NOTED. 04/12/2018 15:37 SXM TREATMENT 04/12/2018 14:38 Patient Interaction - Name Band on Pt [facility] PATIENT NAME: KAT ARITA [address] [facility] [address] [place] MEDICAL REC #: [id number] [place] [address] EMERGENCY DEPARTMENT CHART EMERGENCY DEPARTMENT PHYSICIAN 04/12/2018 14:39 SXM 04/12/2018 14:38 Patient Interaction - Introduce self to Patient. 04/12/2018 14:39 SXM 04/12/2018 14:38 Patient Interaction - Allergy Band on Pt. 04/12/2018 14:39 SXM 04/12/2018 14:38 Primary DOC Guide - A. 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 Fall Risk Assessment (Age andlt;65) 04/12/2018 14:39 SXM History of Falling in last 3 months? No (0) Confusion or Disorientation? No (0) Intoxicated or Sedated? No (0) Impaired Gait? No (0) Mobility Assist Device Used? No (0) Altered Elimination? No (0) Fall Risk Score 1-2 Points = Low Risk. 3-4 Points = Moderate Risk. 5 or more points = High Risk. 0 Fall Score Greater andgt;= 3? No 04/12/2018 14:39 Primary DOC Guide - D. Psychosocial Assessment 04/12/2018 14:39 SXM Over the Last 2 weeks, how often have you had little interest or pleasure in doing things (0) Not at All Is Psychosocial Assessment Score 3 or more? If score is 3 or more please consult ED Navigator! No Total Psychosocial Assessment Score 0 Over the last 2 weeks, how often have you been feeling down, depressed or hopeless (0) Not at All 04/12/2018 14:39 Primary DOC Guide - E. Family Violence Assessment 04/12/2018 14:39 SXM [facility] PATIENT NAME: KAT ARITA [address] [facility] [address] [place] MEDICAL REC #: [id number] [place] [address] EMERGENCY DEPARTMENT CHART EMERGENCY DEPARTMENT PHYSICIAN Within the past year, has anyone ever pushed, shoved, slapped, choked, hit, punched or kicked you: No Within the past year, has anyone ever pressured or forced you to have sexual activities when you did not want to: No Do you feel safe and well cared for: Yes Is there a partner from a previous or current relationship that is making you feel unsafe now: No 04/12/2018 15:36 Admit/Discharge - *Discharge instructions/tests andamp; procedures/med list reviewed and provided; prescriptions given to patient 04/12/2018 15:36 SXM 04/12/2018 15:36 Admit/Discharge - Ambulated with steady gait home 04/12/2018 15:36 SXM MEDICATIONS IV I AND O VITALS VS-ROUTINE Time: 04/12/2018 13:06 B/P: 151/87 - Right Upper Arm - Sitting - Machine Pulse: 101 - Monitor Resp: 18 Sa02: 99 Room Air Temp: 98.40 F - Oral 04/12/2018 13:16 JIR VS-Pain Time: 04/12/2018 13:06 Pain Level: 10 04/12/2018 13:16 JIR VS-GCS Time: 04/12/2018 13:06 Visual: 4 Verbal: 5 Motor: 6 GCS Total: 15 04/12/2018 13:16 JIR VS-HT/WT Time: 04/12/2018 13:06 Ht: 63 in. Stated Weight: 172 lbs Stated 04/12/2018 13:16 JIR VS-Visual Time: 04/12/2018 13:06 04/12/2018 13:16 JIR VS-FHT Time: 04/12/2018 13:06 04/12/2018 13:16 JIR VS-Notes Time: 04/12/2018 13:06 MAP= 113 04/12/2018 13:16 JIR [facility] PATIENT NAME: KAT ARITA [address] [facility] [address] [place] MEDICAL REC #: [id number] [place] [address] EMERGENCY DEPARTMENT CHART EMERGENCY DEPARTMENT PHYSICIAN VS-ROUTINE Time: 04/12/2018 15:35 B/P: 147/88 - Left Upper Arm - Sitting - Machine Pulse: 82 - Monitor Resp: 16 Sa02: 97 Room Air 04/12/2018 15:36 SXM VS-Pain Time: 04/12/2018 15:35 Pain Level: 10 04/12/2018 15:36 SXM VS-GCS Time: 04/12/2018 15:35 04/12/2018 15:36 SXM VS-HT/WT Time: 04/12/2018 15:35 04/12/2018 15:36 SXM VS-Visual Time: 04/12/2018 15:35 04/12/2018 15:36 SXM VS-FHT Time: 04/12/2018 15:35 04/12/2018 15:36 SXM VS-Notes Time: 04/12/2018 15:35 map 113 04/12/2018 15:36 SXM ORDERS [place] (PO)*(5/325) DOSE:1 tabs PO 04/12/2018 15:35 N/A Ordered: 04/12/2018 15:26 By Andrew Garcia Completed Time: 04/12/2018 15:35 By Andrew Garcia Noted Time: 04/12/2018 15:29 SXM Discharge patient 04/12/2018 15:27 N/A Ordered: 04/12/2018 15:10 By . Other Reviewed: 04/12/2018 15:27 By . Other *Other Nurse: records from [place] on Tuesday CT and labs and visit 04/12/2018 14:37 N/A Ordered: 04/12/2018 14:19 By Andrew Garcia Completed Time: 04/12/2018 14:37 By Andrew Garcia Noted Time: 04/12/2018 14:30 SXM DISCHARGE Diagnosis: Headache, Anxiety 04/12/2018 15:30 CANCELLED DIAGNOSES Diagnosis Name: Headache, Anxiety Disposition: Time: 04/12/2018 15:10 Discharge Time: 04/12/2018 15:37 [facility] PATIENT NAME: LYLAKAT Jazmyne [address] [facility] [address] [place] MEDICAL REC #: [id number] [place] [address] EMERGENCY DEPARTMENT CHART EMERGENCY DEPARTMENT PHYSICIAN Type: Discharge Condition: Stable for admission/discharge/transfer after emergency evaluation/treatment Category: *NOT APPLICABLE Referral: 04/12/2018 15:30 Admit Physician: . Other PRESCRIPTIONS [place] 5 mg-325 mg tablet 04/12/2018 15:30 SI q4-6h Additional Instructions: R51 Dispense: 4 / Refills: CHARGES SIGNATURE Andrew Loaiza RNPCC JUANITA Goodman RN SXM Mateo Bernal PA-C [facility] PATIENT NAME: KAT ARITA [address] [facility] [address] [place] MEDICAL REC #: [id number] [place] [address] EMERGENCY DEPARTMENT CHART EMERGENCY DEPARTMENT PHYSICIAN EMERGENCY DEPARTMENT Observed: 04/11/2018 Status: F Source: [place] SUMMARY 3:00 PM [facility] Medical Records Department [address] [place] [address] Emergency Department Summary 04/10/18 2240 MR#: [id number] Acct: [id number] Name: KAT ARITA Rep #: [id number] : 1975 43 From: Charity Curran MD PCP: Care Physician, No Primary Status: DEP ER - ER Visit Summary Date of Service: 04/10/18 Chief Complaint: Headache History of Present Illness: The patient is a 43 F with a history of migraines. Patient states she had gradual onset of a slight headache with some double vision. Headache and suddenly worsened. She reported had a syncopal episode at work. She denies any recent head trauma. No URI symptoms. She does state her father of a stroke at age 40. Patient has had multiple imaging studies of her head and denies known history of aneurysm. Physical Examination: Blood pressure is 150/85, other vitals normal. Patient's lying in a darkened room with a washcloth over her eyes. Pupils are equal and reactive. Neck is nontender with no meningismus. Heart is regular rate and rhythm. Lung sounds are clear. Abdomen is soft nontender. Neuro exam reveals no focal deficits with good strength and sensation throughout. Test Results: Noncontrast head CT is unremarkable. CTA head is unremarkable. Blood work unremarkable. test is negative. Emergency Department Course and Treatment: Patient does have an allergy to IV contrast and due to initial concern for possible subarachnoid hemorrhage was pretreated with Benadryl, Zofran, and Solu-Medrol. After noncontrast head CT returned okay she was given a small dose of Dilaudid. Patient does have multiple allergies to pain medication and other options were not easily available. Patient was sent for a CTA of the head which was unremarkable. Due to continued pain she did receive 1 final dose of Dilaudid, Reglan, and Benadryl. On final repeat evaluation she is sitting up looking around the room. She states she feels significantly improved and wishes to go home. Test results were discussed with the patient and family at bedside. Treatment Plan: [] Disposition: Discharge Impression: Cephalgia, resolved This note was generated with [employer] dictation software. It may contain incorrect words, spelling, and punctuation that were not noted in review of the chart prior to signing ED Disposition - Plan for ED Patient: Disposition: Home or Assisted Living Chief Complaint: Headache Instructions: ED Headache Migraine Prescriptions: proMETHazine tablet [Phenergan] 25 mg PO Q6H PRN PRN #10 tablet PRN Reason: Nausea Referrals: Ish Zhu MD [STAFF PHYSICIAN] - As Needed What to do if you have Problems For any increased pain, shortness of breath, bleeding, nausea or vomiting, chest pain, or any unexpected problems, contact your Primary Care Provider. Call [facility] ([phone]) or report to the closest Emergency Room. Call 911 if necessary. 04/11/18 1500 <Electronically signed by Charity Curran MD> Date Charity Curran MD Cosigner Signature (If Indicated): Date CC: No Primary Care Physician DISCHARGE INSTRUCTION Observed: 04/10/2018 Status: F Source: [place] 10:41 PM [facility] Medical Records Department [address] [place] [address] Discharge Instruction 04/10/18 2240 MR#: [id number] Acct: [id number] Name: KAT ARITA Jazmyne Rep #: [id number] : 1975 43 From: Charity Curran MD PCP: Care Physician, No Primary Status: REG ER ED Disposition - Plan for ED Patient: Disposition: Home or Assisted Living Chief Complaint: Headache Instructions: ED Headache Migraine Prescriptions: proMETHazine tablet [Phenergan] 25 mg PO Q6H PRN PRN #10 tablet PRN Reason: Nausea Referrals: Ish Zhu MD [STAFF PHYSICIAN] - As Needed What to do if you have Problems For any increased pain, shortness of breath, bleeding, nausea or vomiting, chest pain, or any unexpected problems, contact your Primary Care Provider. Call [facility] ([phone]) or report to the closest Emergency Room. Call 911 if necessary. 04/10/18 2241 <Electronically signed by Charity Curran MD> Date Charity Curran MD Cosigner Signature (If Indicated): Date CC: No Primary Care Physician CTA HEAD W/WO Observed: 04/10/2018 Status: F Source: [place] CONTRAST 8:01 PM [facility] Imaging Services [address] [place] [address] CTA Head W/WO Contrast MR#: [id number] Acct: [id number] Name: KAT ARITA Rep #: [id number] : 1975 F 43 From: Garfield Christine MD PCP: Care Physician, No Primary Status: REG ER Study: CTA Head W/WO Contrast Date of Exam: 04/10/18 Exam# [id number] Ordering Dr: Charity Curran MD STUDY: CTA OF THE BRAIN REASON FOR EXAM: Female, 43 years old. Sudden onset of headache. Syncope. RADIATION DOSAGE (If Supplied By Facility): CTDIvol = ( 22.45 ) mGy, DLP = ( 379.88 ) mGycm TECHNIQUE: CT angiography was performed with a multi-detector CT scanner. Data acquisition was obtained from the skull base through the vertex following intravenous administration of 100 ml of Isovue-370. MIP images were reconstructed from the axial data set. Post-processing of the angiographic images was performed, with multiplanar reformation and 3D reconstruction. Individualized dose optimization techniques were used for this CT. COMPARISON: Noncontrast CT of the head of the same day.. FINDINGS: Normal bilateral petrous carotid arteries. Normal right cavernous carotid artery with a normal supraclinoid bifurcation. Normal left cavernous carotid artery with a normal supraclinoid bifurcation. Normal right A1 segments of the anterior cerebral artery. Normal left A1 segments of the anterior cerebral artery. Normal intact anterior communicating artery (ACOM). Normal bilateral A2 segments of the anterior cerebral arteries. Normal right M1 and M2 segments of the middle cerebral arteries, with a normal M1 bifurcation. Normal left M1 and M2 segments of the middle cerebral arteries, with a normal M1 bifurcation. Normal right posterior communicating artery (PCOM). Normal left posterior communicating artery (PCOM). Normal bilateral vertebral arteries. Normal basilar artery with a normal basilar bifurcation. The visualized bilateral superior cerebellar (SCA) arteries are normal. Normal bilateral P1, P2 and visualized P3 segments of the posterior cerebral arteries. There is no demonstrated aneurysm of the [place] of [place]. There is no demonstrated abnormality of the visualized brain. CT/CTA Head W/WO Contrast IMPRESSION: Normal [place] without a demonstrated aneurysm or hemodynamically significant stenosis. Electronically Signed: Garfield Christine MD at 22:00 EDT , Service support , CC: No Primary Care Physician; Charity Curran MD Supervisor In Charge: Signed BRAIN/HEAD WITHOUT Observed: 04/10/2018 Status: F Source: [place] CONTRAST 6:40 PM [facility] [place] [address] Brain/Head without Contrast MR#: [id number] Acct: [id number] Name: KAT ARITA Rep #: [id number] : 1975 F 43 From: Romario Dave MD PCP: Care Physician, No Primary Status: REG ER Study: Brain/Head without Contrast Date of Exam: 04/10/18 Exam# [id number] Ordering Dr: Charity Curran MD STUDY: CT BRAIN WITHOUT CONTRAST REASON FOR EXAM: Female, 43 years old. Sudden onset of headache at work, syncope RADIATION DOSAGE (If Supplied By Facility): CTDIvol = ( 44.99 ) mGy, DLP = ( 745.49 ) mGycm TECHNIQUE: Transaxial CT imaging of the brain was performed without administration of intravenous contrast material. Individualized dose optimization techniques were used for this CT. COMPARISON: MRI from 2012 FINDINGS: Normal soft tissue structures. Normal calvarium. Normal size ventricles and extra-axial spaces for the patient's age. Normal white matter tracts of the cerebral hemispheres. Normal basal ganglia and thalami. Normal brainstem. Normal cerebellum. There is no intracranial hemorrhage. There are no findings of an acute ischemic infarction. Normal visualized paranasal sinuses. CT/Brain/Head without Contrast IMPRESSION: Normal unenhanced CT scan of the brain. Electronically Signed: Boyd Dave MD at 19:21 EDT , Service support , CC: No Primary Care Physician; Charity Curran MD Supervisor In Charge: Signed BASIC METABOLIC Collected: 04/10/2018 Status: F Source: [place] PROFILE (BMP) 6:08 PM [facility] REPOSITORY TYPE CODE TESTS RESULT OUT OF RANGE REFERENCE UNITS LAB L501.0100 74-106 mg/dL Normal GLU 85 Result Comment: Please note revised GLUCOSE reference range effective 2017. LAB L501.1000 7-18 mg/dL Normal BUN 9 LAB L501.1100 0.55-1.02 mg/dL Normal CREAT,SERUM 0.82 Result Comment: The validity of the calculated GFR AND GFRAA in patients over 70 years has not been determined. Clinical correlation is essential. LAB L501.1110 >60 mL/min Normal EST GFR 81 Result Comment: Non- GFR Calc LAB L501.1115 >60 mL/min Normal EST GFR - AA 98 Result Comment: GFR Calc LAB L501.1255 ml/min Normal Estimated CRCL 74.69 LAB L501.1300 10-20 RATIO Normal BUN/CRE 10.9 LAB L501.2200 8.5-10 mg/dL Normal .1 CA 9.1 LAB L501.5300 136-14 mmol/L Normal 5 NA 140 LAB L501.5600 3.5-5. mmol/L Normal 1 K 3.6 LAB L501.5900 98-107 mmol/L High CL 109 LAB L501.6100 21.0-3 mmol/L Normal 2.0 CO2 24.0 LAB L501.6200 5-15 Normal GAP 7 Performed By: #### L500.2500 #### [facility] [address] [place], [address] CBC W/DIFF, AUTOMATED Collected: 04/10/2018 Status: F Source: [place] 6:08 PM [facility] REPOSIT[facility] TYPE CODE TESTS RESULT OUT OF RANGE REFERENCE UNITS LAB L100.1000 4.4-11.0 K/mm3 Normal WBC 10.2 LAB L100.1200 4.2-5.4 M/mm3 Normal RBC 4.70 LAB L100.1300 12.0-15.0 g/dl High HGB 15.1 LAB L100.1400 37-47 % Normal HCT 45.4 LAB L100.1500 81-99 fL Normal MCV 96.6 LAB L100.1600 27.0-32.0 pg High MCH 32.1 LAB L100.1700 32-36 g/gl Normal MCHC 33.3 LAB L100.1810 11.6-14.6 % Normal RDW CV 13.0 LAB L100.1820 35.1-43.9 fl High RDW SD 45.6 LAB L100.1900 150-450 K/mm3 Normal PLT 237 LAB L100.2000 6.2-12.0 fl Normal MPV 12.0 LAB L100.2100 47-70 % Normal NEUT% 60.5 LAB L100.2200 19-41 % Normal LY% 31.7 LAB L100.2300 0-10 % Normal MONO% 5.5 LAB L100.2400 0-5 % Normal EO% 1.7 LAB L100.2500 0-1 % Normal BASO% 0.4 LAB L100.2550 0.0-0.9 % Normal IM GRAN % 0.200 Result Comment: IG% - Immature Granulocytes (promyelocytes, myelocytes and metamyelocytes) > 1% indicates that a LEFT SHIFT is Present. LAB L100.2620 2.0-7.7 X10 3/uL Normal Absolute Neut 6.1 LAB L100.2720 0.83-4.51 X10 3/ul Normal Absolute Lymph 3.22 Performed By: #### L100.0100 #### [facility] [address] [place], [address] PROTHROMBIN TIME W/INR Collected: 04/10/2018 Status: F Source: [place] 6:08 PM [facility] REPOSITORY TYPE CODE TESTS RESULT OUT OF RANGE REFERENCE UNITS LAB L300.4150 11.7-14.9 SECONDS Normal PROTIME 12.4 LAB L300.4200 Normal INR 0.9 Performed By: #### L300.3900, L300.4310 #### [facility] [address] [place], [address] PARTIAL THROMBOPLAST Collected: 04/10/2018 Status: F Source: [place] TIME 6:08 PM [facility] REPOSITORY TYPE CODE TESTS RESULT OUT OF RANGE REFERENCE UNITS LAB L300.4310 24.1-36.2 Seconds Normal PTT 33.0 Performed By: #### L300.3900, L300.4310 #### [facility] [address] [place], [place], [address] ,SERUM,HCG QUALI. Collected: Status: F Source: [place] 04/10/2018 6:08 PM [facility] REPOSITORY TYPE CODE TESTS RESULT OUT OF REFERENCE UNITS RANGE LAB L700.7000 0-9 Nonpreg Negative Normal HCGSQUAL NEGATIVE LAB L700.6700 =>Qualitative mIU/mL Normal HCG Qual < 1 triggr Performed By: #### L700.6800 #### [facility] [address] [place], [address] Observed: 04/05/2018 Status: F Source: [place] TRICH[facility]ON[facility] PREP 11:20 AM [facility] REPOSITORY Sp. Request/Comment: - Swab Smear Result - Negative for Trichomonas vaginalis antigen This test was developed and its performance characteristics determined by [facility] [place] ([facility] It has not been cleared or approved by the FDA. [facility] is regulated under CLIA as qualified to perform high-complexity testing. This test is used for clinical purposes. It should not be regarded as investigational or for research. Performed By: #### TRICHO #### [facility] [address] [place] [place] [address] Observed: 04/05/2018 Status: F Source: [place] BACT/CAND VAG GRM ST 11:20 AM [facility] REPOSITORY Sp. Request/Comment: - Swab Smear Result - BACTERIAL VAGINOSIS RESULT: Stain results consistent with bacterial vaginosis. --> ABNORMAL ALERT No Yeast observed Rare Polymorphonuclear leukocytes Performed By: #### BVCNSM #### [facility] [place] [address] GC/CHLAMYDIA AMPLIF Collected: 04/04/2018 Status: F Source: [facility] 11:20 [facility] REPOSITORY TYPE CODE TESTS RESULT OUT OF REFERENCE UNITS RANGE LAB GCCTSR GC/Chlam Amp [facility] Source LAB GCAMPL GC Negative Amplification for Neisseria gonorrhoeae by amplification. LAB CLAMPL Chlamydia Negative Amplif for Chlamydia trachomatis by amplification. Performed By: #### GCCT #### [facility] [place] [address] PROGRESS Observed: 04/04/2018 Status: COMPLETED Source: [place] 11:04 AM [facility] REPOSITORY HNO ID: [id number] Author: Cassie Clarke Service: (none) Author Type: Nurse Practitioner Type: Progress Notes Filed: 04/04/2018 1:00 PM Note Text: Kat Arita is a 43 year old female who presents for problem visit HPI: Has had 2.5 years of recurrent vaginal infections. had affair just prior to onset of symptoms - subsequent testing was negative for STDs. Has been evaluated and treated by video camera operator in [place] and [facility]. Has been treated for bacterial vaginosis several times. Has noticed a fishy odor, milky greer, thin but sometimes thick discharge consistent with past episodes of BV. Constant vaginal itching. Has had bumps on labia - one has been there for one year - MD diagnosed a cyst. PAST MEDICAL HISTORY Diagnosis Date - Acne Vulgaris: Grade IV Nodulocystic--scarring 08/28/2009 - Adjustment disorder with depressed mood - Allergic rhinitis, cause unspecified 03/02/2006 - Depressive disorder - Fibromyalgia - Myalgia and myositis, unspecified - Other and unspecified hyperlipidemia 2003 - Other chronic cystitis 09/20/2005 - Palpitations 07/19/2005 - Systemic lupus erythematosus (HCC) - Thyroid nodule - Thyroiditis, unspecified 2000 had PP thyroiditis / hyperthyroidism, treated with radioactive iodine, was on Synthroid for a while, but recent TSH's are normal off of meds - Tobacco abuse PAST SURGICAL HISTORY Procedure Laterality Date - BIOPSY OF BREAST 09/09/2010 U/S Core biopsy left breast - DELIVERY ONLY , low cervical - DELIVERY ONLY , low cervical - DELIVERY ONLY , low cervical - SECTION HX - COLONOSCOP W/ OR W/O BRSH SPEC 01/08/16 Colonoscopy (MAC) - COLONOSCOPY 2014 - [facility] DIAG AND/OR THERAP, NOT OB 2012 w/ ablation - EGD W/O OR W/BRUSH/WASH 01/08/16 EGD (MAC) - HYSTERECTOMY HX 2014 Dr Harris- both ovaries remain - LIGATE FALLOPIAN TUBE Tubal ligation - REMOVAL ADENOIDS,PRIMARY,<12 Y/O Adenoidectomy - REMOVAL OF TONSILS,<12 Y/O Tonsillectomy - REPAIR UMBILICAL FADUMO,5+Y/O,REDUC 2006 FAMILY HISTORY Problem Relation Age of Onset - Hypertension Father - Stroke Father - Alcohol/Drug Father - Heart Mother - Cancer Mother skin - Coronary Artery Disease Mother - Psychiatry Mother - Cancer Maternal Grandmother lung / brain - Breast Cancer Maternal Grandmother - Colon Cancer Maternal Grandfather - Heart Paternal Grandfather - MULTIPLE SCLEROSIS [OTHER] Maternal Aunt - Breast Cancer Other MGM AND MGGM - in their 40's - Colon Cancer Other MGF - in his 60's Social History Marital status: Spouse name: KRISTEN Years of education: 12 Number of children: 3 Occupational History 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 Social History Main Topics Smoking status: Current Every Day Smoker Packs/day: 0.50 Years: 17.00 Types: Cigarettes Smokeless tobacco: Never Used Alcohol use: No Drug use: No Sexual activity: Yes Partners with: Male control/protection: Tubal Ligation, Surgical Comment: hysterectomy Other Topics Concern No BLOOD TRANSFUSIONS No CAFFEINE No OCCUPATIONAL EXPOSURE No HOBBY HAZARD No SLEEP CONCERN No STRESS CONCERN No WEIGHT CONCERN No DIET No BACK CARE No EXERCISE No BIKE HELMET No SEAT BELT No SELF EXAMS No Current Outpatient Prescriptions: sertraline (ZOLOFT) 100 mg tablet Take 1 tablet by mouth once daily. clonazePAM (KLONOPIN) 1 mg tablet Take 1 tablet by mouth at bedtime as needed for Anxiety. venlafaxine ER (EFFEXOR XR) 75 mg 24 hr capsule Take 75 mg by mouth once daily. sertraline (ZOLOFT) 50 mg tablet Take 1 tablet by mouth once daily. No current facility-administered medications for this visit. Allergies As of Date: 04/04/2018 Allergen Noted Reaction AUGMENTIN [AMOXICILLIN-POT CLAVUL*07/19/2005 Hives BACTRIM [SULFAMETHOXAZOLE-TRIMETH*12/04/2015 Hives and Swelling ENVIRONMENTAL ALLERGIES [OTHER] 06/14/2006 IBUPROFEN 12/04/2015 Hives and Swelling IV CONTRAST [IODINE] 12/04/2015 Rash and Swelling MACRODANTIN [NITROFURANTOIN MACRO*07/19/2005 Hives NSAIDS (NON-STEROIDAL ANTI-INFLAM*12/04/2015 Hives PYRIDIUM [PHENAZOPYRIDINE HCL] 03/21/2007 Rash Fully Assessed 04/04/2018 REVIEW OF SYSTEMS Abdomen: No bloating, early satiety, indigestion, or increased flatulence. No abdominal pain, nausea, vomiting, diarrhea, or constipation. Bladder: No dysuria, gross hematuria, urinary frequency, urinary urgency, or incontinence. Allergies and current medication updated:Yes EXAM: BP 110/66 Wt 170 lb (77.1kg) LMP 04/07/2012 GENERAL: pleasant, female in no apparent distress CHEST: Normal inspiratory effort ABDOMEN: soft, non-tender and no masses PELVIC: external genitalia normal, normal Bartholin's glands, urethra, [place]'s glands, no vulvar lesions, cervix absent good vaginal support, normal appearing perineal body and perianal region, abnormal discharge small amount white/wilburn BIMANUAL: uterus absent, shape and consistency, no adnexal masses and non-tender ASSESSMENT/PLAN: 1. Acute vaginitis - ICD9: 616.10, ICD10: N76.0 (primary diagnosis) - recurrent BV - GC/CHLAMYDIA DNA DET - TRICHOMONAS PREP - RAPID BV B/O - positive - BACT/KINGSLEY VAG GRAM STAIN 2. Screen for STD (sexually transmitted disease) - ICD9: V74.5, ICD10: Z11.3 - GC/CHLAMYDIA DNA DET - TRICHOMONAS PREP 3. BV (bacterial vaginosis) - ICD9: 616.10, 041.9, ICD10: N76.0, B96.89 - METRONIDAZOLE 500 MG TABLET - Discussed and given written information on vulvar hygiene and BV including use of condoms, Florajen-3 probiotic. If BV recurs after treatment and lifestyle changes, will plan to do long-term treatment. Pt agreeable. Follow-up as needed. Cassie Clarke APRN.CNP CNOV Observed: 04/04/2018 Status: COMPLETED Source: [facility] 10:45 AM [facility] REPOSITORY Office Visit (WOOB) KAT ARITA ([id number]) 1975 F Date Time Provider Department 04/04/18 10:45 AM CASSIE CLARKE (PK) WOOB During your visit today, we recorded the following information about you: Blood pressure Weight 110/66 77.1 kg Cassi Muñiz Wilma 04/04/2018 11:21 AM Signed Burrer Hand offered: Patient declines. Cassie Clarke APRN.CNP 04/04/2018 1:00 PM Signed Kat Arita is a 43 year old female who presents for problem visit HPI: Has had 2.5 years of recurrent vaginal infections. had affair just prior to onset of symptoms - subsequent testing was negative for STDs. Has been evaluated and treated by video camera operator in [place] and [facility]. Has been treated for bacterial vaginosis several times. Has noticed a fishy odor, milky greer, thin but sometimes thick discharge consistent with past episodes of BV. Constant vaginal itching. Has had bumps on labia - one has been there for one year - MD diagnosed a cyst. PAST MEDICAL HISTORY Diagnosis Date - Acne Vulgaris: Grade IV Nodulocystic--scarring 08/28/2009 - Adjustment disorder with depressed mood - Allergic rhinitis, cause unspecified 03/02/2006 - Depressive disorder - Fibromyalgia - Myalgia and myositis, unspecified - Other and unspecified hyperlipidemia 2003 - Other chronic cystitis 09/20/2005 - Palpitations 07/19/2005 - Systemic lupus erythematosus (HCC) - Thyroid nodule - Thyroiditis, unspecified 2000 had PP thyroiditis / hyperthyroidism, treated with radioactive iodine, was on Synthroid for a while, but recent TSH's are normal off of meds - Tobacco abuse PAST SURGICAL HISTORY Procedure Laterality Date - BIOPSY OF BREAST 09/09/2010 U/S Core biopsy left breast - DELIVERY ONLY , low cervical - DELIVERY ONLY , low cervical - DELIVERY ONLY , low cervical - SECTION HX - COLONOSCOP W/ OR W/O BRSH SPEC 01/08/16 Colonoscopy (MAC) - COLONOSCOPY 2014 - [facility] DIAG AND/OR THERAP, NOT OB 2012 w/ ablation - EGD W/O OR W/BRUSH/WASH 01/08/16 EGD (MAC) - HYSTERECTOMY HX 2014 Dr Harris- both ovaries remain - LIGATE FALLOPIAN TUBE Tubal ligation - REMOVAL ADENOIDS,PRIMARY,<12 Y/O Adenoidectomy - REMOVAL OF TONSILS,<12 Y/O Tonsillectomy - REPAIR UMBILICAL FADUMO,5+Y/O,REDUC 2006 FAMILY HISTORY Problem Relation Age of Onset - Hypertension Father - Stroke Father - Alcohol/Drug Father - Heart Mother - Cancer Mother skin - Coronary Artery Disease Mother - Psychiatry Mother - Cancer Maternal Grandmother lung / brain - Breast Cancer Maternal Grandmother - Colon Cancer Maternal Grandfather - Heart Paternal Grandfather - MULTIPLE SCLEROSIS [OTHER] Maternal Aunt - Breast Cancer Other MGM AND MGGM - in their 40's - Colon Cancer Other MGF - in his 60's Social History Marital status: Spouse name: KRISTEN Years of education: 12 Number of children: 3 Occupational History 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 Social History Main Topics Smoking status: Current Every Day Smoker Packs/day: 0.50 Years: 17.00 Types: Cigarettes Smokeless tobacco: Never Used Alcohol use: No Drug use: No Sexual activity: Yes Partners with: Male control/protection: Tubal Ligation, Surgical Comment: hysterectomy Other Topics Concern No BLOOD TRANSFUSIONS No CAFFEINE No OCCUPATIONAL EXPOSURE No HOBBY HAZARD No SLEEP CONCERN No STRESS CONCERN No WEIGHT CONCERN No DIET No BACK CARE No EXERCISE No BIKE HELMET No SEAT BELT No SELF EXAMS No Current Outpatient Prescriptions: sertraline (ZOLOFT) 100 mg tablet Take 1 tablet by mouth once daily. clonazePAM (KLONOPIN) 1 mg tablet Take 1 tablet by mouth at bedtime as needed for Anxiety. venlafaxine ER (EFFEXOR XR) 75 mg 24 hr capsule Take 75 mg by mouth once daily. sertraline (ZOLOFT) 50 mg tablet Take 1 tablet by mouth once daily. No current facility-administered medications for this visit. Allergies As of Date: 04/04/2018 Allergen Noted Reaction AUGMENTIN [AMOXICILLIN-POT CLAVUL*07/19/2005 Hives BACTRIM [SULFAMETHOXAZOLE-TRIMETH*12/04/2015 Hives and Swelling ENVIRONMENTAL ALLERGIES [OTHER] 06/14/2006 IBUPROFEN 12/04/2015 Hives and Swelling IV CONTRAST [IODINE] 12/04/2015 Rash and Swelling MACRODANTIN [NITROFURANTOIN MACRO*07/19/2005 Hives NSAIDS (NON-STEROIDAL ANTI-INFLAM*12/04/2015 Hives PYRIDIUM [PHENAZOPYRIDINE HCL] 03/21/2007 Rash Fully Assessed 04/04/2018 REVIEW OF SYSTEMS Abdomen: No bloating, early satiety, indigestion, or increased flatulence. No abdominal pain, nausea, vomiting, diarrhea, or constipation. Bladder: No dysuria, gross hematuria, urinary frequency, urinary urgency, or incontinence. Allergies and current medication updated:Yes EXAM: BP 110/66 Wt 170 lb (77.1kg) LMP 04/07/2012 GENERAL: pleasant, female in no apparent distress CHEST: Normal inspiratory effort ABDOMEN: soft, non-tender and no masses PELVIC: external genitalia normal, normal Bartholin's glands, urethra, [place]'s glands, no vulvar lesions, cervix absent good vaginal support, normal appearing perineal body and perianal region, abnormal discharge small amount white/wilburn BIMANUAL: uterus absent, shape and consistency, no adnexal masses and non-tender ASSESSMENT/PLAN: 1. Acute vaginitis - ICD9: 616.10, ICD10: N76.0 (primary diagnosis) - recurrent BV - GC/CHLAMYDIA DNA DET - TRICHOMONAS PREP - RAPID BV B/O - positive - BACT/KINGSLEY VAG GRAM STAIN 2. Screen for STD (sexually transmitted disease) - ICD9: V74.5, ICD10: Z11.3 - GC/CHLAMYDIA DNA DET - TRICHOMONAS PREP 3. BV (bacterial vaginosis) - ICD9: 616.10, 041.9, ICD10: N76.0, B96.89 - METRONIDAZOLE 500 MG TABLET - Discussed and given written information on vulvar hygiene and BV including use of condoms, Florajen-3 probiotic. If BV recurs after treatment and lifestyle changes, will plan to do long-term treatment. Pt agreeable. Follow-up as needed. LOU Rodriguez APRN.CNP 04/04/2018 11:45 AM Signed Florajen-3 probiotic RepHresh Condoms for intercourse Minimizing irritation of the vulva (area around the vagina) Wear white cotton underwear. Avoid synthetic fabrics and tight clothing. Sleep wearing shorts or pajama bottoms without underwear. No thongs. Shower as soon as possible after exercise. Avoid clothing detergents and soaps with perfumes or dyes. Use warm (not hot) water to wash the vulva and if you use soap use a product designed for sensitive skin (like Dove or Cetaphil). Dove unscented bar soap Do not douche or use creams/powders in the vulvar area unless instructed by your physician. If you must douche, use only plain warm water. Make sure the vulva is dry before dressing by patting dry with a towel. Avoid vigorous rubbing with the towel. You may want to use the blow dryer (on the cool setting only!) on the vulva. The most important way to let your body heal is by avoiding scratching. Many patients find it difficult to avoid scratching at night when they are most aware of the itchiness. You can try taking Benadryl just before bedtime. Some women find it helpful to wear cotton gloves to bed to avoid scratching at night. Bacterial Vaginosis What is bacterial vaginosis? Bacterial vaginosis (BV) is a common infection that occurs in a woman's vagina. Bacterial vaginosis does not usually cause serious health problems, except in women. What causes BV? Health care providers do not yet fully understand what causes BV. Bacteria are a natural part of the vagina. For some reason, something upsets the normal balance of bacteria. Some of the bacteria grow too rapidly and cause infection. What are the symptoms of BV? Unfortunately, almost 50 percent of the women who have bacterial vaginosis do not have any symptoms. Common symptoms of BV include: White or discolored discharge Discharge that smells fishy Fishy smell that is strongest after sex Other symptoms can include: Itchy vagina Sore vagina Because BV has symptoms that are similar to other infections, it is important that you visit your health care provider if you think you have an infection in your vagina. Who can get BV? Any woman can get BV. The infection is most common in women between the ages of 18 and 44. BV is most common in sexually active women, although sexual transmission of BV has never been proven. Women who are not engaging in sex can also get BV. You may have a higher risk of getting BV if you: Have many sex partners Have a sexually transmitted infection (STI) How can I know if I have BV? Your health care provider can tell you if you have BV. He or she will examine you and will take a sample of fluid from your vagina. The fluid is viewed under a microscope. In most cases, your health care provider can tell right away if you have BV. How is BV treated? Bacterial vaginosis is treated using medicines that kill the infection. The most common medicine ordered for BV is called metronidazole. Common product names for this medicine are Flagyl? and Protostat?. Metronidazole may be given as a pill that is taken by mouth. It may also be given as a vaginal gel. Does the medication have side effects? Yes. You may have: Upset stomach Metal taste in your mouth Heartburn Don't drink alcohol while you are taking metronidazole. You can become very sick to your stomach. Call your health care provider if you have these or any other side effects. Can I treat myself for BV? No. Bacterial vaginosis can only be treated with medicines ordered by your health care provider. You cannot purchase [id number] products to treat BV. Products for douching and treating yeast infections will not cure BV. Should I be treated for BV if I am ? Yes, but not during the first three months of . Some studies have shown that having the infection during may cause early labor and premature . Tell your health care provider if you are . Also let your health care provider know if you think that you might be . You and your health care provider should discuss whether or not the infection should be treated. How can I protect myself from BV? Ways to prevent BV are not yet known. Female hygiene products like douches and deodorants will not cure the infection. These products may make the infection worse. To maintain your overall good health: Eat a well-balanced diet Exercise Manage stress levels Get a pelvic exam as directed by your provider When should I call my doctor? You should call your health care provider any time if: Your vaginal discharge changes color, becomes heavier, or smells different You notice itching, burning, swelling, or soreness around the vagina ?Copyright 9274-8503 [facility]. All rights reserved. This information is provided by the [facility] and is not intended to replace the medical advice of your doctor or health care provider. Please consult your health care provider for advice about a specific medical condition. For additional written health information, please contact the Health Information Center at the [facility] or toll-free extension [phone] or visit [email or web address] This document was last reviewed on: 2010 Referring Provider: SELF [[id number]] Allergies As of Date: 04/04/2018 Noted Allergy Reaction IODINATED CONTRAST- ORAL AND IV D*02/24/2017 4 - Hives AUGMENTIN (AMOXICILLIN-POT CLAVUL*07/19/2005 4 - Hives BACTRIM (SULFAMETHOXAZOLE-TRIMETH*12/04/2015 4 - Hives 7 - Swelling CETIRIZINE 14 - Other: See Comments Comments: Other reaction(s): Palpitations Environmental allergies [Other] 06/14/2006 Comments: Dust mites, molds IBUPROFEN 12/04/2015 4 - Hives 7 - Swelling IV CONTRAST (IODINE) 12/04/2015 2 - Rash 7 - Swelling MACRODANTIN (NITROFURANTOIN MACRO*07/19/2005 4 - Hives NSAIDS (NON-STEROIDAL ANTI-INFLAM*12/04/2015 4 - Hives PHENAZOPYRIDINE 7 - Swelling Comments: Other reaction(s): Hives PSEUDOEPHEDRINE HCL 14 - Other: See Comments Comments: Other reaction(s): Palpitations PYRIDIUM (PHENAZOPYRIDINE HCL) 03/21/2007 2 - Rash Date Reviewed: 04/04/2018 Reviewed by: Cassie Clarke - Fully Assessed Reason for Visit: Vaginal Problem [117] Cmt: Discharge and Odor Primary Visit Diagnosis:Acute vaginitis [N76.0] Other Visit Diagnoses:Screen for STD (sexually transmitted disease) [Z11.3] BV (bacterial vaginosis) [N76.0, B96.89] Order(s):GC/CHLAMYDIA DNA DET [SQGCCAMP] Order #: [id number] TRICHOMONAS PREP [SQTRICHO] Order #: [id number] RAPID BV B/O [[id number]] Order #: [id number] BACT/KINGSLEY VAG GRAM STAIN [SQBVCNSM] Order #: [id number] FUTURE metroNIDAZOLE (FLAGYL) 500 mg tabletTake 1 tablet by mouth twice daily for 7 days.Disp: 14 tabletRfl: 0 Prescriptions as of 04/04/2018 Sig: SERTRALINE 100 MG TABLET Take 1 tablet by mouth once d* CLONAZEPAM 1 MG TABLET Take 1 tablet by mouth at bed* METRONIDAZOLE 500 MG TABLET Take 1 tablet by mouth twice * Problem List As Of Date 04/04/2018 Noted Resolved Severe episode of recurrent major depressive di*INVALID FOR* Generalized anxiety disorder [F41.1] INVALID FOR* ADJUSTMENT DISORDER WITH DEPRESSED MOOD [F43.21] 01/06/2007 Systemic lupus erythematosus (HCC) [M32.9] 12/29/2015 Fibromyalgia [M79.7] Palpitations [R00.2] INVALID FOR*12/29/2015 HYPOTHYROIDISM NOS [E03.9] INVALID FOR*01/06/2007 Other chronic cystitis [N30.20] INVALID FOR*12/29/2015 ALLERGIC RHINITIS NOS [J30.9] INVALID FOR* HYPERLIPIDEMIA NEC/NOS [E78.5] Thyroiditis, unspecified [E06.9] 12/29/2015 More... Acne Vulgaris: Grade IV Nodulocystic--scarring*INVALID FOR*12/29/2015 Scar Condition AND Fibrosis of Skin: acne: face*INVALID FOR* Sebaceous cyst [L72.3] INVALID FOR*12/29/2015 Dermatitis due to Unspec [L25.9] INVALID FOR*12/29/2015 Vitamin D deficiency [E55.9] INVALID FOR*12/29/2015 Tobacco abuse [Z72.0] INVALID FOR* Recurrent major depression in partial remission*INVALID FOR* Marital conflict [Z63.0] INVALID FOR* Panic disorder without agoraphobia [F41.0] INVALID FOR* Hx of Graves' disease [Z86.39] INVALID FOR* Impaired fasting glucose [R73.01] INVALID FOR* Uninodular goiter [E04.1] INVALID FOR* Thyroid nodule [E04.1] INVALID FOR* Other instructions from your clinician: Florajen-3 probiotic RepHresh Condoms for intercourse Minimizing irritation of the vulva (area around the vagina) Wear white cotton underwear. Avoid synthetic fabrics and tight clothing. Sleep wearing shorts or pajama bottoms without underwear. No thongs. Shower as soon as possible after exercise. Avoid clothing detergents and soaps with perfumes or dyes. Use warm (not hot) water to wash the vulva and if you use soap use a product designed for sensitive skin (like Dove or Cetaphil). Dove unscented bar soap Do not douche or use creams/powders in the vulvar area unless instructed by your physician. If you must douche, use only plain warm water. Make sure the vulva is dry before dressing by patting dry with a towel. Avoid vigorous rubbing with the towel. You may want to use the blow dryer (on the cool setting only!) on the vulva. The most important way to let your body heal is by avoiding scratching. Many patients find it difficult to avoid scratching at night when they are most aware of the itchiness. You can try taking Benadryl just before bedtime. Some women find it helpful to wear cotton gloves to bed to avoid scratching at night. Bacterial Vaginosis What is bacterial vaginosis? Bacterial vaginosis (BV) is a common infection that occurs in a woman's vagina. Bacterial vaginosis does not usually cause serious health problems, except in women. What causes BV? Health care providers do not yet fully understand what causes BV. Bacteria are a natural part of the vagina. For some reason, something upsets the normal balance of bacteria. Some of the bacteria grow too rapidly and cause infection. What are the symptoms of BV? Unfortunately, almost 50 percent of the women who have bacterial vaginosis do not have any symptoms. Common symptoms of BV include: White or discolored discharge Discharge that smells fishy Fishy smell that is strongest after sex Other symptoms can include: Itchy vagina Sore vagina Because BV has symptoms that are similar to other infections, it is important that you visit your health care provider if you think you have an infection in your vagina. Who can get BV? Any woman can get BV. The infection is most common in women between the ages of 18 and 44. BV is most common in sexually active women, although sexual transmission of BV has never been proven. Women who are not engaging in sex can also get BV. You may have a higher risk of getting BV if you: Have many sex partners Have a sexually transmitted infection (STI) How can I know if I have BV? Your health care provider can tell you if you have BV. He or she will examine you and will take a sample of fluid from your vagina. The fluid is viewed under a microscope. In most cases, your health care provider can tell right away if you have BV. How is BV treated? Bacterial vaginosis is treated using medicines that kill the infection. The most common medicine ordered for BV is called metronidazole. Common product names for this medicine are Flagyl? and Protostat?. Metronidazole may be given as a pill that is taken by mouth. It may also be given as a vaginal gel. Does the medication have side effects? Yes. You may have: Upset stomach Metal taste in your mouth Heartburn Don't drink alcohol while you are taking metronidazole. You can become very sick to your stomach. Call your health care provider if you have these or any other side effects. Can I treat myself for BV? No. Bacterial vaginosis can only be treated with medicines ordered by your health care provider. You cannot purchase yijj-jym-niysqms products to treat BV. Products for douching and treating yeast infections will not cure BV. Should I be treated for BV if I am ? Yes, but not during the first three months of . Some studies have shown that having the infection during may cause early labor and premature . Tell your health care provider if you are . Also let your health care provider know if you think that you might be . You and your health care provider should discuss whether or not the infection should be treated. How can I protect myself from BV? Ways to prevent BV are not yet known. Female hygiene products like douches and deodorants will not cure the infection. These products may make the infection worse. To maintain your overall good health: Eat a well-balanced diet Exercise Manage stress levels Get a pelvic exam as directed by your provider When should I call my doctor? You should call your health care provider any time if: Your vaginal discharge changes color, becomes heavier, or smells different You notice itching, burning, swelling, or soreness around the vagina ?Copyright 6885-4871 [facility]. All rights reserved. This information is provided by the [facility] and is not intended to replace the medical advice of your doctor or health care provider. Please consult your health care provider for advice about a specific medical condition. For additional written health information, please contact the Health Information Center at the [facility] or toll-free extension [phone] or visit [email or web address] This document was last reviewed on: 2010 Visit Notes: >> Cassi Abrams Apr 04, 2018 11:03 AM Status: Signed Burrer Hand offered: Patient declines. Prescriptions ordered this encounter Disp Refills Start End METRONIDAZOLE 500 MG TABLET 14 t* 0 04/04/2018 04/11/2018 Route: ORAL Sig: Take 1 tablet by mouth twice daily for 7 days. Medications Discontinued During This Encounter sertraline (ZOLOFT) 50 mg tablet 30 t* 1 12/29/2015 04/04/2018 Route: ORAL Sig: Take 1 tablet by mouth once daily. Disc: Reason for discontinue is not on file. venlafaxine ER (EFFEXOR XR) 75 mg 24* 04/04/2018 Class: Historical Med Route: ORAL Sig: Take 75 mg by mouth once daily. Disc: Reason for discontinue is not on file. Encounter Status:Closed by CASSIE CLARKE on 04/04/18 EMERGENCY DEPARTMENT Observed: 02/10/2018 Status: F Source: [place] SUMMARY 10:19 PM [facility] Medical Records Department [address] [place] [address] Emergency Department Summary 02/10/18 2203 MR#: [id number] Acct: [id number] Name: KAT ARITA Rep #: [id number] : 1975 42 From: Carolina Agosto MD PCP: Care Physician, No Primary Status: DEP ER - ER Visit Summary Date of Service: 02/10/18 Chief Complaint: Low back pain History of Present Illness: The patient is a 42 F who presents for several days of low back pain status post an injury at work. Patient was seen on January 26 of this year for a Worker's Comp. injury, in which she injured her lower back while at work. Patient states that she is taking Flexeril currently without any relief. Her pain is severe located in the bilateral lower back and radiating down into her right leg to the toes. She states she is under work restrictions to only sit or to stand on a concrete floor, and her back is not getting any better. Pain is worse with moving and standing. She has tried heat without improvement. Flexeril is not working. Patient states she is allergic to all NSAIDs. She was given prescription for Percocet with some improvement. Pain is sharp. Patient denies any fever, abdominal pain, urinary or bowel incontinence or retention. Patient had an MRI recently and brought the report with her. Physical Examination: Vital signs: afebrile, hemodynamically stable, no hypoxia on room air General: well nourished, well developed, in no distress but tearful Skin: warm, dry, no rash, no pallor HEENT: normocephalic and atraumatic; PERRL, EOMI, moist mucous membranes Cardiovascular: tachycardic rate and rhythm without murmurs, no peripheral edema, 2+ pulses all distal extremities Respiratory: No increased work of breathing, lungs are clear to auscultation bilaterally, no rales, rhonchi or wheezing Abdominal: Abdomen is soft, nontender with normoactive bowel sounds, no guarding or rebound, no masses Back: Diffuse tenderness to palpation in the lumbar paraspinal musculature bilaterally and diffusely in the midline, no foreign bodies, step-offs, fluctuance or induration; no erythema --patient is very waite diffusely and evenly MSK: Moves all extremities, no deformities, weakness with plantar flexion, dorsiflexion and EHL in the right lower extremity with poor effort. Patellar reflexes are 2+ and symmetric. Patient has diffuse diminished sensation to light touch in the right lower extremity following no dermatomal or radicular pattern. Neuro: Awake and alert, oriented 4. No facial droop, sensation and motor function intact and symmetric Test Results: [] Emergency Department Course and Treatment: Discussed with patient that back injuries and back pain take days to weeks to heal. Patient already has an MRI performed which she brought with her, and it showed no concerning findings that would require emergent spinal decompression or further emergent evaluation. Oars report was performed on patient and shows 2 prescriptions for Percocet since the injury occurred and multiple prescriptions from multiple providers for opiates and benzodiazepines. Patient states she does take clonazepam on a regular basis anxiety. Discussed with her that I cannot write her an opiate prescription due to her multiple recent prescriptions as well as the fact she is also a benzodiazepine, and a combination of the 2 increases her risk of accidental overdose and . Patient is allergic to all NSAIDs per the patient, and thus stated she cannot take any of those. She is taking Tylenol and states it does not work. Patient was given a dose of prednisone and a Medrol Dosepak prescription to see if that will help her pain. Patient's neuro exam was diffuse in the right lower extremity and did not clinically make sense, as it would be expected patient would have sensory and motor deficits in a specific nerve pattern rather than on the hip down. Patient gave poor effort on her strength examination. Thus I do not think her sensory and motor deficits reflect any active nerve compression. Patient requested a work excuse for tomorrow, and we discussed she is under the care of Worker's Comp. and already has work restrictions in place. She needs to follow-up with her Worker's Comp. physician if she needs any adjustments to her work restrictions. She was discharged home. She walked out of the emergency department with an even gait and no evidence of footdrop or limp. Treatment Plan: [] Disposition: [] Impression: lower back injury, subsequent visit This note was generated with [employer] dictation software. It may contain incorrect words, spelling, and punctuation that were not noted in review of the chart prior to signing ED Disposition - Plan for ED Patient: Disposition: Home or Assisted Living Chief Complaint: Back Instructions: ED Low Back Pain Injury Prescriptions: MethylPREDNISolone DosePak [Medrol DosePak] 4 mg PO UD #1 box Referrals: Care Physician,No Primary [Primary Care Provider] - Doctor,Your [STAFF PHYSICIAN] - As soon as possible Additional Instructions: Please continue using the Flexeril that you have previously been prescribed as needed for your pain. Use tygi-qeo-clirkic pain medication of your choice. Please take the steroid Dosepak as directed to help further with your pain. We will need to follow-up with your Worker's Comp physician for further discussion of work restrictions. Please keep your scheduled appointment or call to schedule an appointment for sooner date if possible. What to do if you have Problems For any increased pain, shortness of breath, bleeding, nausea or vomiting, chest pain, or any unexpected problems, contact your Primary Care Provider. Call [facility] ([phone]) or report to the closest Emergency Room. Call 911 if necessary. 02/10/18 4036 <Electronically signed by Carolina Agosto MD> Date Carolina Agosto MD Cosigner Signature (If Indicated): Date CC: No Primary Care Physician DISCHARGE INSTRUCTION Observed: 02/10/2018 Status: F Source: [place] 10:19 PM [facility] Medical Records Department [address] [place] [address] Discharge Instruction 02/10/18 2203 MR#: [id number] Acct: [id number] Name: KAT ARITA Rep #: [id number] : 1975 42 From: Carolina Agosto MD PCP: Care Physician, No Primary Status: DEP ER ED Disposition - Plan for ED Patient: Disposition: Home or Assisted Living Chief Complaint: Back Instructions: ED Low Back Pain Injury Prescriptions: MethylPREDNISolone DosePak [Medrol DosePak] 4 mg PO UD #1 box Referrals: Care Physician,No Primary [Primary Care Provider] - Doctor,Your [STAFF PHYSICIAN] - As soon as possible Additional Instructions: Please continue using the Flexeril that you have previously been prescribed as needed for your pain. Use [id number] pain medication of your choice. Please take the steroid Dosepak as directed to help further with your pain. We will need to follow-up with your Worker's Comp physician for further discussion of work restrictions. Please keep your scheduled appointment or call to schedule an appointment for sooner date if possible. What to do if you have Problems For any increased pain, shortness of breath, bleeding, nausea or vomiting, chest pain, or any unexpected problems, contact your Primary Care Provider. Call [employer] ([phone]) or report to the closest Emergency Room. Call 911 if necessary. 02/10/18 5516 <Electronically signed by Carolina Agosto MD> Date Carolina Agosto MD Cosigner Signature (If Indicated): Date CC: No Primary Care Physician EMERGENCY DEPARTMENT Observed: 01/26/2018 Status: F Source: [place] SUMMARY 10:12 PM [facility] Medical Records Department [address] [place] [address] Emergency Department Summary 01/26/18 1732 MR#: [id number] Acct: [id number] Name: KAT ARITA Rep #: [id number] : 1975 42 From: Robin Alex DO PCP: Care Physician, No Primary Status: DEP ER - ER Visit Summary Date of Service: 01/26/18 Chief Complaint: [Back injury] History of Present Illness: The patient is a 42 F [presents to the emergency department with injury to her back that occurred approximately 4 PM today. Patient states that she needed apart so she reached overhead move a palate that was above her head. The palate shifted patient twisted her back. Patient felt a pop in her back. Patient complains of pain radiating down the backside of her right leg. She states she has had similar symptoms in the past and she had an MRI about a year ago that showed a herniated disc but does not remember what level. Patient denies loss of bowel or bladder function. She denies any saddle anesthesia.] Physical Examination: [HEENT-PERRLA, EOMI. Cranial nerves II through XII grossly intact. TMs clear. Mucous membranes moist. No adenopathy. Cardiovascular-regular rate and rhythm without murmur or ectopy Lungs-clear to auscultation, chest wall stable without crepitus or subcu emphysema Abdomen-normoactive bowel sounds, soft, nontender, no rebound or rigidity, no peritoneal signs. Back exam-patient has tenderness to palpation over the right lumbar paraspinal musculature. Patient has tenderness over the right buttock and right piriformis muscle. Patient has a positive straight leg raise with pain at about 20 . Deep tendon reflexes are plus 2 out of 4 bilaterally at the patella and Achilles. Patient has normal L5 extension bilaterally. Patient has somewhat decreased sensation to light touch over the lateral aspect of the right calf. Extremities-intact 4, normal range of motion, normal pulses, atraumatic] Test Results: [None indicated] Emergency Department Course and Treatment: [Patient was medicated with Dilaudid and Norflex. Patient required second and third dose of Dilaudid for pain. She is feeling much improved at this time. Patient was given option of admission for pain control versus home with pain meds and outpatient follow-up. Patient does not want to be admitted at this time.] Treatment Plan: [Patient to follow-up with [facility] within next 3-5 days and given work restriction's.] Patient given a prescription for Flexeril and Percocet. Disposition: [Discharged home in stable condition] Impression: [Lumbar radiculopathy Lumbar strain] This note was generated with [employer] software. It may contain incorrect words, spelling, and punctuation that were not noted in review of the chart prior to signing ED Disposition - Plan for ED Patient: Chief Complaint: Back Referrals: Care Physician,No Primary [Primary Care Provider] - What to do if you have Problems For any increased pain, shortness of breath, bleeding, nausea or vomiting, chest pain, or any unexpected problems, contact your Primary Care Provider. Call [facility] ([phone]) or report to the closest Emergency Room. Call 911 if necessary. 01/26/182211 <Electronically signed by Robin Alex DO> Date Robin Alex DO Cosigner Signature (If Indicated): Date CC: No Primary Care Physician DISCHARGE INSTRUCTION Observed: 01/26/2018 Status: F Source: [place] 7:12 PM [facility] Medical Records Department [address] [place] [id number] Discharge Instruction 01/26/18 191 MR#: [id number] Acct: [id number] Name: KAT ARITA Rep #: [id number] : 1975 42 From: Robin Alex DO PCP: Care Physician, No Primary Status: REG ER ED Disposition - Plan for ED Patient: Chief Complaint: Back Instructions: ED Spasm Back No Trauma, ED Sciatica Prescriptions: Oxycodone HCl/Acetaminophen [Percocet 5/325] 1 tab PO Q6H PRN PRN 5 Days #20 tab PRN Reason: Pain Cyclobenzaprine [Flexeril] 10 mg PO TID PRN #20 tab PRN Reason: Muscle Spasm Referrals: Care Physician,No Primary [Primary Care Provider] - [facility] - 3-5 Days What to do if you have Problems For any increased pain, shortness of breath, bleeding, nausea or vomiting, chest pain, or any unexpected problems, contact your Primary Care Provider. Call [facility] ([phone]) or report to the closest Emergency Room. Call 911 if necessary. 01/26/181911 <Electronically signed by Robin Alex DO> Date Robin Alex DO Cosigner Signature (If Indicated): Date CC: No Primary Care Physician ED PROV NOTE Observed: 12/14/2017 Status: COMPLETED Source: [place] 9:[address] [facility] O ID: [id number] Author: Kristen Ruiz MD Service: Emergency Medicine Author Type: Physician Type: ED Provider Notes Filed: 12/14/2017 9:08 PM Note Text: ED Provider Note Patient Name: Kat Arita SERVICE DATE: 12/14/17 History Patient presents with: Headache HPI PAST MEDICAL HISTORY Diagnosis Date - Acne Vulgaris: Grade IV Nodulocystic--scarring 08/28/2009 - Adjustment disorder with depressed mood - Allergic rhinitis, cause unspecified 03/02/2006 - Depressive disorder - Fibromyalgia - Myalgia and myositis, unspecified - Other and unspecified hyperlipidemia 2003 - Other chronic cystitis 09/20/2005 - Palpitations 07/19/2005 - Systemic lupus erythematosus (HCC) - Thyroid nodule - Thyroiditis, unspecified 2000 had PP thyroiditis / hyperthyroidism, treated with radioactive iodine, was on Synthroid for a while, but recent TSH's are normal off of meds - Tobacco abuse PAST SURGICAL HISTORY Procedure Laterality Date - BIOPSY OF BREAST 09/09/2010 U/S Core biopsy left breast - DELIVERY ONLY , low cervical - DELIVERY ONLY , low cervical - DELIVERY ONLY , low cervical - SECTION HX - COLONOSCOP W/ OR W/O BRSH SPEC 01/08/16 Colonoscopy ([facility]) - COLONOSCOPY 2014 - DANDC DIAG AND/OR THERAP, NOT OB 2013 w/ ablation - EGD W/O OR W/BRUSH/WASH 01/08/16 EGD ([facility]) - HYSTERECTOMY HX 2014 Dr Harris- both ovaries remain - LIGATE FALLOPIAN TUBE Tubal ligation - REMOVAL ADENOIDS,PRIMARY,<12 Y/O Adenoidectomy - REMOVAL OF TONSILS,<12 Y/O Tonsillectomy - REPAIR UMBILICAL FADUMO,5+Y/O,REDUC 2006 FAMILY HISTORY Problem Relation Age of Onset - Hypertension Father - Stroke Father - Alcohol/Drug Father - Heart Mother - Cancer Mother skin - Coronary Artery Disease Mother - Psychiatry Mother - Cancer Maternal Grandmother lung / brain - Breast Cancer Maternal Grandmother - Colon Cancer Maternal Grandfather - Heart Paternal Grandfather - MULTIPLE SCLEROSIS [OTHER] Maternal Aunt - Breast Cancer Other MGM AND MGGM - in their 40's - Colon Cancer Other MGF - in his 60's Social History Social History Main Topics - Smoking status: Current Every Day Smoker Packs/day: 0.50 Years: 17.00 Types: Cigarettes - Smokeless tobacco: Never Used - Alcohol use No - Drug use: No - Sexual activity: Yes Partners: Male control/ protection: Tubal Ligation, Surgical Comment: hysterectomy ALLERGIES Allergen Reactions - Augmentin [Amoxicil* Hives - Bactrim [Sulfametho* Hives, Swelling - Environmental Aller* Dust mites, molds - Ibuprofen Hives, Swelling - Iv Contrast [Iodine] Rash, Swelling - Macrodantin [Nitrof* Hives - Nsaids (Non-Steroid* Hives - Pyridium [Phenazopy* Rash Review of Systems Physical Exam BP 138/80 Pulse 73 Temp (Src) 97.6 (Temporal Artery) Resp 16 Ht 5' 3 (1.60m) Wt 160 lb (72.6kg) SpO2 97% LMP 04/07/2012 BMI 28.35 kg/(m2). Physical Exam Diagnostic Testing ED Labs Ordered and Reviewed BASIC METABOLIC PANEL (AK,AV,EU,FV,HL,JOSE,MM,SP) - Abnormal; Notable for the following: Result Value Ref Range Chloride 108 (*) 98 - 107 mEq/L Glucose 100 (*) 70 - 99 mg/dL Anion Gap 7 (*) 8 - 20 All other components within normal limits CBC + AUTO DIFF (AK,AV,EU,FV,HL,JOSE,MM,SP) - Abnormal; Notable for the following: MCH 32.5 (*) 27.0 - 31.0 pg MPV 11.6 (*) 7.1 - 10.5 fl All other components within normal limits MDRD GFR Procedures Medical Decision Making / ED Course ED Course Patient was turned over to me pending her CTA. This came back that showed no acute process. The patient looks comfortable in the room. She is comfortable with the follow-up plan at discharge. We did discuss these results and follow-up. Medications that are ready been written for. Had a safe ride home. Encounter Diagnosis ICD-10-CM 1. Acute nonintractable headache, unspecified headache type R51 Plan The Patient was Condition at time of disposition: stable SIGNATURE: MD Kristen Castañeda MD 12/14/172107 ED NOTE Observed: 12/14/2017 Status: COMPLETED Source: [place] 8:25 PM [facility] REPOSIT[facility] HNO ID: [id number] Author: Caterina (Rn) KITTY Daniels Service: Emergency Medicine Author Type: Registered Nurse Type: ED Notes Filed: 12/14/2017 8:25 PM Note Text: Dr. Pfeiffer in room explaining plan of care after discharge. Dr. Ruiz to take over patient. Awaiting CT results. Pt aware. at bedside. CTA HEAD W IV CON Observed: 12/14/2017 Status: F Source: [facility] 8:23 PM [facility]POSITORY Performed at [facility] APPROVED BY: Oniel Pinon MD Addendum Begins * * * * * * * * ORIGINAL REPORT * * * * * * * * EXAMINATION: CTA HEAD W IV CON HISTORY: Right side headache x4 hours TECHNIQUE: Spiral high resolution axial images were obtained through the head, neck and superior mediastinum following bolus administration of intravenous contrast for CT angiography. The data was s ubsequently post-processed utilizing 3D multi-planar reconstructions, 3D maximum intensity projections, and a tissue segmentation algorithm at a separate workstation under physician supervision. Precon trast and postcontrast CT scan of brain was provided MQ: CTAHN_3 Contrast: 100 mL Omnipaque 320 IV Dose-Length Product (DLP): 3020 mGy*cm. CT Dose Reduction Employed: 5 COMPARISON: None. RESULT: BRAIN: Evaluation of the individual slices of the CTA demonstrates no evidence of an acute stroke. ASPECT Score = 10 On postcontrast imaging, no evidence of vascular malformation. No evidence of cytotoxic or vasogenic edema Hemorrhage: No evidence of acute intracranial hemorrhage. ECASS hemorrhagic transformation score: Not Applicable Spot Sign Presence: Not Applicable Spot Sign Number: Not Applicable CT ARTERIOGRAM: Intracranial Circulation: Anterior Circulation: No evidence of an aneurysm, occlusion or stenosis Vertebrobasilar Circulation: No evidence of aneurysm, occlusion or stenosis IMPRESSION: Negative enhanced and nonenhanced CT scan of brain. Negative CTA of the head * * * * * * * * ADDENDUM #1 * * * * * * * * Impression:Dose-Length Product (DLP): 3020 mGy*cm. CT Dose Reduction Employed: 5-no dose reduction technique was required Addendum Ends EXAMINATION: CTA HEAD W IV CON HISTORY: Right side headache x4 hours TECHNIQUE: Spiral high resolution axial images were obtained through the head, neck and superior mediastinum following bolus administration of intravenous contrast for CT angiography. The data was s ubsequently post-processed utilizing 3D multi-planar reconstructions, 3D maximum intensity projections, and a tissue segmentation algorithm at a separate workstation under physician supervision. Precon trast and postcontrast CT scan of brain was provided MQ: CTAHN_3 Contrast: 100 mL Omnipaque 320 IV Dose-Length Product (DLP): 3020 mGy*cm. CT Dose Reduction Employed: 5 COMPARISON: None. RESULT: BRAIN: Evaluation of the individual slices of the CTA demonstrates no evidence of an acute stroke. ASPECT Score = 10 On postcontrast imaging, no evidence of vascular malformation. No evidence of cytotoxic or vasogenic edema Hemorrhage: No evidence of acute intracranial hemorrhage. ECASS hemorrhagic transformation score: Not Applicable Spot Sign Presence: Not Applicable Spot Sign Number: Not Applicable CT ARTERIOGRAM: Intracranial Circulation: Anterior Circulation: No evidence of an aneurysm, occlusion or stenosis Vertebrobasilar Circulation: No evidence of aneurysm, occlusion or stenosis IMPRESSION: Negative enhanced and nonenhanced CT scan of brain. Negative CTA of the head ED PROV NOTE Observed: 12/14/2017 Status: COMPLETED Source: [place] 7:31 PM [facility] REPOSIT[facility] O ID: [id number] Author: Lupillo Pfeiffer MD Service: Emergency Medicine Author Type: Physician Type: ED Provider Notes Filed: 12/14/2017 8:13 PM Note Text: ED Provider Note Patient Name: Kat Arita SERVICE DATE: 12/14/17 History Patient presents with: Headache HPI patient complains of a headache that began abruptly 2- 3 hours ago. Stent 10 severity. It is a throbbing, sharp pain over her right jainism. She denies he vomited 3 times. This is associated with photophobia and phonophobia. Nothing has relieved this.she reports that this is accompanied by a double vision. She denies any numbness or weakness. Patient reports that she's had a history of similar headaches approximately once a month for the past 3-4 months. She had a CT of her head at [facility] one month ago. She is unsure whether or not she had a CTA. She does have a family history of aneurysms in her father. She is unsure of a history of migraines. PAST MEDICAL HISTORY Diagnosis Date - Acne Vulgaris: Grade IV Nodulocystic--scarring 08/28/2009 - Adjustment disorder with depressed mood - Allergic rhinitis, cause unspecified 03/02/2006 - Depressive disorder - Fibromyalgia - Myalgia and myositis, unspecified - Other and unspecified hyperlipidemia 2003 - Other chronic cystitis 09/20/2005 - Palpitations 07/19/2005 - Systemic lupus erythematosus (HCC) - Thyroid nodule - Thyroiditis, unspecified 2000 had PP thyroiditis / hyperthyroidism, treated with radioactive iodine, was on Synthroid for a while, but recent TSH's are normal off of meds - Tobacco abuse PAST SURGICAL HISTORY Procedure Laterality Date - BIOPSY OF BREAST 09/09/2010 U/S Core biopsy left breast - DELIVERY ONLY , low cervical - DELIVERY ONLY , low cervical - DELIVERY ONLY , low cervical - SECTION HX - COLONOSCOP W/ OR W/O BRSH SPEC 01/08/16 Colonoscopy ([facility]) - COLONOSCOPY 2014 - DANDC DIAG AND/OR THERAP, NOT OB 2012 w/ ablation - EGD W/O OR W/BRUSH/WASH 01/08/16 EGD ([facility]) - HYSTERECTOMY HX 2014 Dr Harris- both ovaries remain - LIGATE FALLOPIAN TUBE Tubal ligation - REMOVAL ADENOIDS,PRIMARY,<12 Y/O Adenoidectomy - REMOVAL OF TONSILS,<12 Y/O Tonsillectomy - REPAIR UMBILICAL FADUMO,5+Y/O,REDUC 2006 FAMILY HISTORY Problem Relation Age of Onset - Hypertension Father - Stroke Father - Alcohol/Drug Father - Heart Mother - Cancer Mother skin - Coronary Artery Disease Mother - Psychiatry Mother - Cancer Maternal Grandmother lung / brain - Breast Cancer Maternal Grandmother - Colon Cancer Maternal Grandfather - Heart Paternal Grandfather - MULTIPLE SCLEROSIS [OTHER] Maternal Aunt - Breast Cancer Other MGM AND MGGM - in their 40's - Colon Cancer Other MGF - in his 60's Social History Social History Main Topics - Smoking status: Current Every Day Smoker Packs/day: 0.50 Years: 17.00 Types: Cigarettes - Smokeless tobacco: Never Used - Alcohol use No - Drug use: No - Sexual activity: Yes Partners: Male control/ protection: Tubal Ligation, Surgical Comment: hysterectomy ALLERGIES Allergen Reactions - Augmentin [Amoxicil* Hives - Bactrim [Sulfametho* Hives, Swelling - Environmental Aller* Dust mites, molds - Ibuprofen Hives, Swelling - Iv Contrast [Iodine] Rash, Swelling - Macrodantin [Nitrof* Hives - Nsaids (Non-Steroid* Hives - Pyridium [Phenazopy* Rash Review of Systems Constitutional: Negative for chills, diaphoresis and fever. HENT: Negative for ear pain and sore throat. Respiratory: Negative for cough, chest tightness, shortness of breath and wheezing. Cardiovascular: Negative for chest pain and palpitations. Gastrointestinal: Negative for abdominal pain, blood in stool, constipation, diarrhea, nausea and vomiting. Genitourinary: Negative for dysuria, frequency and hematuria. Skin: Negative for rash. Neurological: Positive for headaches. Negative for dizziness, seizures, syncope, facial asymmetry, speech difficulty, weakness and numbness. All other systems reviewed and are negative. Physical Exam BP 129/78 Pulse 71 Temp (Src) 97.6 (Temporal Artery) Resp 16 Ht 5' 3 (1.60m) Wt 160 lb (72.6kg) SpO2 99% LMP 04/07/2012 BMI 28.35 kg/(m2). Physical Exam Constitutional: She is oriented to person, place, and time. She appears well-developed and well-nourished. HENT: Head: Normocephalic and atraumatic. Eyes: Conjunctivae are normal. Pupils are equal, round, and reactive to light. Neck: Normal range of motion. Cardiovascular: Normal rate, regular rhythm and normal heart sounds. No murmur heard. Pulmonary/Chest: Effort normal and breath sounds normal. No respiratory distress. Abdominal: Soft. Bowel sounds are normal. She exhibits no distension. There is no tenderness. There is no rebound and no guarding. No peritoneal signs. Musculoskeletal: Normal range of motion. She exhibits no tenderness. Lymphadenopathy: She has no cervical adenopathy. Neurological: She is alert and oriented to person, place, and time. She has normal strength. No cranial nerve deficit or sensory deficit. Gait normal. GCS eye subscore is 4. GCS verbal subscore is 5. GCS motor subscore is 6. Skin: Skin is warm and dry. No rash noted. Psychiatric: She has a normal mood and affect. Diagnostic Testing ED Labs Ordered and Reviewed BASIC METABOLIC PANEL (AK,AV,EU,FV,HL,JOSE,MM,SP) - Abnormal; Notable for the following: Result Value Ref Range Chloride 108 (*) 98 - 107 mEq/L Glucose 100 (*) 70 - 99 mg/dL Anion Gap 7 (*) 8 - 20 All other components within normal limits CBC + AUTO DIFF (AK,AV,EU,FV,HL,JOSE,MM,SP) - Abnormal; Notable for the following: MCH 32.5 (*) 27.0 - 31.0 pg MPV 11.6 (*) 7.1 - 10.5 fl All other components within normal limits MDRD GFR Procedures Medical Decision Making / ED Course ED Course patient had an IV placed. She has a history of IV contrast allergy and reports that this makes my ears well. She was pretreated with Benadryl and Solu-Medrol. She was given morphine and Reglan for her headache. on repeat exam she reports that her headache is improved and her vision has returned to normal. Encounter Diagnosis ICD-10-CM 1. Acute nonintractable headache, unspecified headache type R51 Plan the patient will be turned over to the care of the oncoming physician for follow-up on her CT and appropriate disposition if this is abnormal. If her CT is normal she will be discharged with prednisone and Zyrtec as she did get IV contrast here and has a history of allergy to iodine. She will be instructed to follow up with her primary care physician in one to 2 days if not improving. Instructed to return to the emergency department for any worsening symptoms or concerns. The Patient was transferred to the care of the oncoming physician. Condition at time of disposition: improved and stable. This note was generated with [employer] dictation software. It may contain incorrect words, spelling, and punctuate that were not noted in review of the chart prior to signing. SIGNATURE: MD Lupillo Zamora MD 12/14/172012 HEMOGRAM/DIFF Collected: 12/14/2017 Status: F Source: [facility] 7:00 HEALTH SYSTEM REPOSITORY TYPE CODE TESTS RESULT OUT OF REFERENCE UNITS RANGE LAB LWBC(LOINC 4.8-10.8 thou/cmm ) WBC 9.8 LAB LRBC(LOINC 4.20-5.40 mil/cmm ) RBC 4.62 LAB LHGB(LOINC 12.0-16.0 g/dL ) Hgb 15.0 LAB LHCT(LOINC 37.0-47.0 % ) Hct 43.2 LAB LMCV(LOINC 81.0-99.0 fl ) MCV 93.5 LAB LMCH(LOINC 27.0-31.0 pg ) MCH High 32.5 LAB LMCHC(LOIN 32.0-36.0 % C) MCHC 34.7 LAB LRDW(LOINC 11.5-15.9 % ) RDW 11.6 LAB LPLT(LOINC 150-400 thou/cmm ) Platelet 234 LAB LMPV(LOINC 7.1-10.5 fl ) MPV High 11.6 LAB LSEGT(LOIN % C) Seg Neutrophil 56.3 LAB LLYMP(LOIN % C) Lymphocyte 34.7 LAB LMNO(LOINC % ) Monocyte 6.0 LAB NIKI(LOINC % ) Eosinophil 2.3 LAB LBASO(LOIN % C) Basophil 0.7 LAB LSEGN(LOIN 3.00-5.67 thou/cmm C) Abs. Neut 5.51 LAB LLYMN(LOIN 1.50-3.65 thou/cmm C) Abs. Lymph 3.40 LAB LMONN(LOIN 0.20-1.00 thou/cmm C) Abs. Wilcox 0.59 LAB LEOSN(LOIN 0.00-0.41 thou/cmm C) Abs. Eosin 0.23 LAB LBASN(LOIN 0.00-0.08 thou/cmm C) Abs. Baso 0.07 Performed By: #### LCBCD #### [place] [address] BASIC PANEL Collected: 12/14/2017 Status: F Source: [facility] 7:00 HEALTH SYSTEM REPOSITORY TYPE CODE TESTS RESULT OUT OF REFERENCE UNITS RANGE LAB STOCK CRANE OPERATOR(LOINC) 136-145 mEq/L Sodium Blood 137 LAB LK(LOINC) 3.5-5.1 mEq/L Potassium Blood 3.9 LAB LCL(LOINC) 98-107 mEq/L Chloride High Blood 108 LAB LCO2(LOINC 21-32 mEq/L ) CO2 Blood 26 LAB LGLU(LOINC 70-99 mg/dL ) Glucose High Blood 100 LAB LBUN(LOINC 7-25 mg/dL ) BUN Blood 10 LAB LCREA(LOIN 0.51-0.95 mg/dL C) Creatinine Blood 0.74 LAB LCA(LOINC) 8.5-10.1 mg/dL Calcium Blood 9.6 LAB LANGP(LOIN 8-20 C) Low Anion Gap 7 LAB LBNCR(LOIN 10-20 C) BUN/Creatinine 14 Ratio Performed By: #### LP8 #### [place] [address] MDRD EGFR Collected: 12/14/2017 Status: F Source: [facility] 7:00 HEALTH SYSTEM REPOSITORY TYPE CODE TESTS RESULT OUT OF RANGE REFERENCE UNITS LAB LGFRF(LOINC >60mL/min/1.73m ) 2 eGFR >60 Result Comment: If the patient is , multiply the result by 1.210. Performed By: #### LGFR #### [place] [address] ED NOTE Observed: 12/14/2017 Status: COMPLETED Source: [facility] 6:44 PM [facility] REPOSITORY HNO ID: [id number] Author: Caterina Wang) KITTY Daniels Service: Emergency Medicine Author Type: Registered Nurse Type: ED Notes Filed: 12/14/2017 6:45 PM Note Text: Pt reports migraine onset approx 1630 pt states feels like I was hit in the head with a baseball bat. Pt reports pain to right side and radiating down neck. Reports 3 migraines in past 30 days; new onset CT HEAD OR BRAIN W/O Observed: 11/08/2017 Status: F Source: [facility] 8:36 PM [facility] REPOSITORY Exam Date/Time: 11/08/2017 20:53 EDT Reason for Exam: Headache Report CT SCAN BRAIN, NONCONTRAST CLINICAL HISTORY: Headache. COMPARISON: None. TECHNIQUE: Unenhanced helical imaging was acquired from skull base to vertex. Multiplanar images are submitted. Dose reduction techniques were achieved by using: automated exposure control and/or adjustment of mA and /or kV according to patient size and/or use of iterative reconstruction technique. FINDINGS: There is no acute intraaxial or extraaxial mass, shift, or bleed. Wilburn-white junctions are well defined. The ventricles and sulci are age-appropriate. The pituitary and sella turcica are normal. The orbit and ocular contents are normal. The paranasal sinuses are clear. Calvarium is intact. IMPRESSION: 1. No acute intracranial event. 2. Clear sinuses. FINAL REPORT Dictated: 11/08/2017 9:20 pm Tatyana Martin MD Signed (Electronic Signature): 11/08/2017 9:20 pm Signed by: Tatyana Martin MD Technologist: AM ALLERGIES ALLERGIES DATE TYPE / CODE NAME / CODE REACTION SEVERITY SOURCE 08/10/20 Drug amoxicillin Hives Unknown [place] 18 Allergy/860851589 trihydrate/C43061119 Community (SNOMED CT) 7(RXNORM) Hospital Repository 08/10/20 Drug potassium Hives Unknown [place] 18 Allergy/808796432 clavulanate/W8135128 Community (SNOMED CT) 09(RXNORM) Hospital Repository 08/10/20 Drug nitrofurantoin Hives Unknown [place] 18 Allergy/568373641 macrocrystalline/F00 Community (SNOMED CT) 3462595(RXNORM) Hospital Repository 08/10/20 Drug NSAIDS Hives Unknown [place] 18 Allergy/273700219 (Non-Steroidal Community (SNOMED CT) Anti-Inflamma/V58324 Hospital 0439(RXNORM) Repository 08/10/20 Drug ibuprofen/C101845059 Hives Unknown [place] 18 Allergy/496326129 (RXNORM) [facility] (SNOMED CT) Hospital Repository 08/10/20 Drug sulfamethoxazole/F00 Hives Unknown [place] 18 Allergy/963122722 6741809(RXNORM) Community (SNOMED CT) Hospital Repository 08/10/20 Drug trimethoprim/O795055 Hives Unknown [place] 18 Allergy/595070867 873(RXNORM) [facility] (SNOMED CT) Hospital Repository 08/10/20 Miscellaneous STERI-STRIPS Other Unknown [place] 18 Allergy/391865040 [facility] (SNOMED CT) Hospital Repository 08/10/20 Drug Iodinated Contrast- Swelling Unknown [place] 18 Allergy/742253534 Oral and IV Community (SNOMED CT) Dye/X801184294(RXNOR Hospital M) Repository 08/10/20 Drug Gadolinium-MRI Swelling Unknown [place] 18 Allergy/715639395 Contrast Community (SNOMED CT) Medium/N631826345(RX Hospital NORM) Repository 08/10/20 Drug ketorolac/B215886024 Hives Unknown [place] 18 Allergy/100275484 (RXNORM) [facility] (SNOMED CT) Hospital Repository 02/25/20 Drug IODINATED CONTRAST- HIVES Med [place] 17 Class/216617278(S ORAL AND IV DYE Clinic Main NOMED CT) [place] Repository 12/04/19 DRUG/313834038(SN SULFAMETHOXAZOLE-TRI [facility] [place] [address]) METHOPRIM Clinic Main [place] Repository 12/04/19 DRUG IBUPROFEN [facility] [place] 16 INGREDI/654573467 Clinic Main (SNOMED CT) [place] Repository 12/04/19 DRUG IODINE RASH [place] 16 INGREDI/789289293 Clinic Main (SNOMED CT) [place] Repository 12/04/19 Drug NSAIDS [facility] [place] 16 Class/825871635(S (NON-STEROIDAL Clinic Main NOMED CT) ANTI-INFLAMMATORY [place] DRUG) Repository 03/21/20 DRUG PHENAZOPYRIDINE HCL RASH [place] 07 INGREDI/629413117 Clinic Main (SNOMED CT) [place] Repository 06/14/20 Miscellaneous OTHER [place] 06 Allergy/173971709 Clinic Main (SNOMED CT) [place] Repository 07/19/20 DRUG/269400655(SN AMOXICILLIN-POT [facility] [address]) CLAVULANATE Clinic Main [place] Repository 07/19/20 DRUG NITROFURANTOIN HIVES [place] 05 INGREDI/722590320 MACROCRYSTALLINE Clinic Main (SNOMED CT) [place] Repository DRUG CETIRIZINE OTHER: SEE C [place] INGREDI/815757702 Clinic Main (SNOMED CT) [place] Repository DRUG PHENAZOPYRIDINE SWELLING [place] INGREDI/129972734 Clinic Main (SNOMED CT) [place] Repository DRUG PSEUDOEPHEDRINE HCL OTHER: SEE C [place] INGREDI/233701680 Clinic Main (SNOMED CT) [place] Repository Drug/510210549(SN Pyridium HIVES Mandaen OMED CT) [facility] Repository Drug/817387275(SN ibuprofen 702637709 Severe Mandaen OMED CT) [facility] Repository Drug/162189410(SN Contrast Dye Unknown Mandaen OMED CT) [facility] Repository Drug/130420338(SN Bactrim 356070448 Severe Mandaen OMED CT) [facility] Repository Drug/089958262(SN Sudafed PALPITATIONS Mandaen OMED CT) [facility] Repository Drug/900702092(SN ZyrTEC PALPITATIONS [place]anda[place] OMED CT) [facility] Repository ENCOUNTERS ENCOUNTERS ADMIT/DISCHARGE ACCOUNT ADMITTING ENCOUNTER LOCATION SOURCE NUMBER CLASS 09/19/2018/ [id number] Ambulatory [address] [place] Repository 08/10/2018/ [id number] Emergency [place] ing:ED Repository 08/09/2018/ [id number] BRUNO [address] Other [place] Repository 08/03/2018/ [id number] Ambulatory [address] Main [place] Repository 08/02/2018/ [id number] Ambulatory [address] Main [place] Repository 08/02/2018/ [id number] Emergency [place] [address] [place] [address] ing:ED Repository 07/26/2018/ [id number] Ambulatory [address] Main [place] Repository 07/24/2018/ [id number] Ambulatory [address] Main [place] Repository 07/04/2018/ [id number] Ambulatory [address] Main [place] Repository 06/26/2018/ [id number] Ambulatory [place] 018 Clinic Main [place] Repository 06/22/2018/ [id number] Ambulatory [place] 018 [facility] Main [place] Repository 06/19/2018/ [id number] Eder Ambulatory [place] 018 [facility] ing:VR6Zrhe: Repository XP432Esy: 1 06/16/2018/ [id number] Emergency [place] 018 [facility] ing:ED Repository 05/29/2018/ [id number] Ambulatory [place] 018 [facility] Main [place] Repository 04/12/2018 [id number] Emergency [facility] Ian g:H.ED Repository 04/10/2018/ [id number] Emergency [place] 018 [facility] ing:ED Repository 04/04/2018/ [id number] Ambulatory [place] 018 [facility] Main [place] Repository 02/10/2018/ [id number] Emergency [place] 018 [facility] ing:ED Repository 02/06/2018/ [id number] Ambulatory Medical [facility] 018 [facility] 01/26/2018/ [id number] Emergency [place] 018 [facility] ing:ED Repository 01/09/2018/ [id number] Ambulatory [place] Manda[place] 018 [facility] ing:[facility] Repository c 12/19/2017/ [id number] Janessa Prater Ambulatory [place]anda[place] 018 [facility] ing:[facility] Repository Mar: Room 2 12/14/2017/ [id number] Emergency [place] 018 [facility] ing:ED Repository 11/08/2017/ [id number] Errol Emergency Mandaen Mandaen 018 [facility] ing:[facility] EDRoom: WR Repository 11/03/2017/ [id number] Ambulatory [address] [facility] ing:[facility] Repository c 10/20/2017/ [id number] [facility], [address] Regional ing:.[facility] Health System Repository 10/13/2017/ [id number] [place], [address] System ing:[facility] Repository Mar: Room 3 10/03/2017/ [id number] Ambulatory [address] [facility] 10/03/2017/ [id number] [address] System ing:[facility] Repository c 09/23/2017/ [id number] Chuck Long [address] Regional ing:[facility] Health System Repository PAYERS PAYERS ENCOUNTER GUARANTOR PAYER SUBSCRIBER SOURCE 08/10/2018 KRISTEN Cheema Primary KAT Mccabe [id number] Insurance:CARESOURCEP STUDERDOB: [facility] Number: [id number], [place] [id number] Repository 794[address]Bdq: (330) Date:2018-08-10P O [phone] () [address]ATTN: [place] [address]MA: 08/10/2018 Secondary NOT GIVENUNK [place] Insurance:SELF PAY [facility] Number: Effective Repository Date:2018-08-10 08/02/2018 KRISTEN Cheema Primary KAT Mccabe [id number] Insurance:CARESOURCEP STUDERDOB: [facility] Number: [id number], [place] [id number] Repository [address]Blc: (330) Date:2018-08-02P O [phone] (HP) [address]ATTN: [place] [address]OQ: 08/02/2018 Secondary NOT GIVENUNK [place] Insurance:SELF PAY [facility] Number: Effective Repository Date:2018-08-02 06/19/2018 KRISTEN Cheema Primary KAT A [place] [id number] Insurance:ANTHEMPolic STUDERDOB: Community [address] y Number: [id number], [place] [id number] Repository 818[address]Ycl: (330) Date:4772-41-20SP [phone] () [id number] [address]GU: 06/19/2018 Secondary NOT GIVENUNK [place] Insurance:SELF PAY [facility] Number: Effective Repository Date:2018-06-19 06/16/2018 KRISTEN Cheema Primary KAT A [place] [id number] Insurance:ANTHEMPolic STUDERDOB: Community [address] y Number: [id number], [place] [id number] Repository [address]Gun: (330) Date:5476-90-02LE [phone] () [id number] [place] [address]RT: 06/16/2018 Secondary NOT GIVENUNK [place] Insurance:SELF PAY [facility] Number: Effective Repository Date:2018-06-16 04/12/2018 KAT A Primary KAT A [facility] [id number] Insurance:[facility] [address] OTHERPolicy Number: Repository [place], [place] [id number] [id number]: (330) Date:2087-64-29IX [phone] () [id number] [place] [address]CO: 04/12/2018 Secondary KAT A [facility] [place] [place] Repository [id number] Date:2017-11-27[address], [place] [address]QS: 04/10/2018 KRISTEN Cheema Primary KAT A [place] [id number] Insurance:ANTHEMPolic [facility] Number: [id number], [place] [id number] Repository [address]Shd: (623) Date:3093-72-34LK [phone] (HP) [address]64[address]HPAPSOP, [place] [address]NM: 04/10/2018 Secondary KAT A [place] Insurance:CARESOURC STUDERDOB: [facility] Number: [id number] [id number] Repository Date:2018-04-10 [address]ATTN: [place] [address]RT: 04/10/2018 Tertiary NOT GIVENUNK [place] Insurance:SELF PAY [facility] Number: Effective Repository Date:2018-04-10 02/10/2018 Kristen Cheema Primary KAT A [place] [id number] Insurance:SELF INS STUDERDOB: [facility] [id number] [facility] Medical CenterPol[facility] Number: Repository [address]Yrd: 330 [id number] [phone] () Date:2018-02-10 02/10/2018 Secondary NOT GIVENUNK [place] Insurance:SELF PAY [facility] Number: Effective Repository Date:2018-02-10 02/06/2018 KAT A Primary KAT A Mandaen STUDERDOB: Insurance:[facility] STUDERDOB: [facility] [id number] [facility] [id number] System [facility] Number: [facility] Repository [place], [place] [id number]: Date:2018-01-11 [id number]: [id number] () Name:CD:[id number] ()Tel: 000) [address], [place] [address] () [address]OU: 01/26/2018 Kristen Cheema Primary KAT A [place] [id number] Insurance:SELF INS STUDERDOB: [facility] [id number] County Memorial Hospitalic Number: Repository [address]Beh: (580) [id number] [phone] (HP) Date:2018-01-26 01/26/2018 Secondary NOT GIVENUNK [place] Insurance:SELF PAY [facility] Number: Effective Repository Date:2018-01-26 01/09/2018 KAT A Primary KAT A Mandaen STUDERDOB: Insurance:1500 STUDERDOB: [facility] [id number] System [address] OPolic Number: [address] Repository [place], [place] [id number]: Date:2017-12-19 [id number]: [id number] (HP) Name:CD:[id number] ()Tel: (000) [address], [place] [address] (WP) [address]JS: 12/19/2017 KAT A Primary KAT A Mandaen STUDERDOB: Insurance:1500 STUDERDOB: [facility] [id number] System [address]WE[address] OPolic Number: [address] [place], [place] Effective [place], [place] [id number]: Date:2017-12-19 [id number]: [id number] (HP) Name:CD:[id number] ()Tel: (000) [address], [place] 000[address] (WP) [phone]: 12/14/2017 Kristen Cheema Primary KAT A [place] [id number] Insurance:MEDICAIDPol STUDERDOB: [facility] [address] [facility] Number: [id number], [place] [id number] Repository [address]Wxk: (330) Date:2017-12-14 [phone] (HP) 12/14/2017 Secondary NOT GIVENUNK [place] Insurance:SELF PAY [facility] Number: Effective Repository Date:2017-12-14 11/08/2017 KAT A Primary KAT A Mandaen STUDERDOB: Insurance:[facility] STUDERDOB: [facility] MCAIDPolicy Number: [id number] [address] Effective [address] Repository [place], [place] Date:2017-11-08 [place], [place] [id number]: [id number] [id number]: Name:CD:[id number] (HP) [address] [place] [address] (HP)Tel: (000 [phone]: (WP) [phone] 11/03/2017 KAT A Primary KAT A Mandaen STUDERDOB: Insurance:[facility] STUDERDOB: [facility] [id number] [address] MCOPolicy Number: [address] Repository [place], [place] Effective [place], [place] [id number]: Date:2017-10-13 [id number]: [id number] (HP) Name:CD:[id number] (HP)Tel: (000) [address] [place] [address] (WP) [phone]: 10/20/2017 KAT A Primary KAT A Mandaen STUDERDOB: Insurance:[facility] STUDERDOB: [facility] MCAIDPolicy Number: [id number] [address] Effective [address] Repository [place], [place] Date:2017-10-14 [place], [place] [id number]: [id number] [id number]: Name:CD:[id number] (HP) [address] [place] [address] (HP)Tel: (000) [phone]: (WP) [phone] 10/13/2017 KAT A Primary KAT A Mandaen STUDERDOB: Insurance:1500 STUDERDOB: [facility] [id number] System [facility] OPoly Number: [address] Repository [place], [place] [id number]: Date:2017-10-13 [id number]: [id number] (HP) Name:CD:[id number] (HP)Tel: (000) [address], [place] [address] (WP) [address]PL: 10/03/2017 KAT A Primary KAT A Mandaen STUDERDOB: Insurance:1500 STUDERDOB: [facility] [id number] [place] [address] [id number] System [facility] HL[facility] [address]Policy [address] Repository [place], [place] Number: [place] [id number]: Date:2017-06-27 [id number]: [id number] (HP) Name:CD:[id number] O (HP)Tel: (000) [address], [place] [address] (WP) [address]RL: 10/03/2017 KAT A Primary KAT A Mandaen STUDERDOB: Insurance:1500 STUDERDOB: [facility] [id number] System [place] [address]CT[address]Policy [address] [facility] [address] Repository [place], [place] Number: Effective [place] [id number]: Date:2017-09-08 [id number]: [id number] (HP) Name:CD:[id number] O (HP)Tel: (000) [address], [place] [address] (WP) [address]SC: 09/23/2017 KAT A Primary KAT A Mandaen STUDERDOB: Insurance:CARESOURCE STUDERDOB: [facility] [id number] MCAIDPolicy Number: [id number] [address] Effective [address] Repository [place], [place] Date:2017-09-13 [place], [place] [id number]: [id number] [id number]: Name:CD:[id number] () [address] [place] [address] ()Tel: (242) [phone]: (wp) [phone]
== END 2018-08-10 23:04 | disposition home or self-care (01) ==
LOC: ED 21:12
PROVIDERS: Emergency Provider Emergency Medicine; Family Provider Family Medicine; PCP Family Medicine
DX: F32.9 Major depressive disorder, single episode, unspecified (principal); M79.7 Fibromyalgia; Z79.899 Other long term (current) drug therapy; Z72.0 Tobacco use
CPT/HCPCS: 80048; 80307; 80320; 84703; 85025; 99283; G0480

== ENCOUNTER 2018-11-14 12:00 | Emergency (ER) | payer MEDICAID, SELFPAY ==
[2018-11-14 12:01] VITALS: BP 167/85; PULSE 92; RESP 20; TEMP 36.6; O2SAT 99; BMI 30.4
--- NOTE | 2018-11-14 12:12 | ED.RN ---
PT DECLINES TO FILE WORKMAN'S COMPENSATION.
--- NOTE | 2018-11-14 12:14 | RAD_ITS ---
STUDY: X-RAY - LEFT SHOULDER REASON FOR EXAM: Female, 43 years old. chronic pain, worse today following dumping a bucket of water TECHNIQUE: 4 view(s) of the shoulder. COMPARISON: None. FINDINGS: Normal glenohumeral articulation. 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 Normal humeral head and visualized proximal humerus. The soft tissue structures are unremarkable. Normal visualized pulmonary apex. 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 Electronically Signed: Fredi Hedrick, at 12:40 EDT Tel , Service support ,
--- NOTE | 2018-11-14 12:19 | ED.DCSUM_ITS ---
History of Present Illness Chief Complaint: Upper Extremity Injury Informant: Patient Onset: Today - Worse today, - - Intermittent problem for 1 year Context: Sudden Onset Timing: Continuous Quality: Burning pain Location: Anterior and posterior left shoulder Current Severity: Mild Maximum Severity: Severe Worsened by: Movement Relieved by: Improves with rest Associated Symptoms: No other associated symptoms Narrative: Patient is a 43-year-old [id number] woman who reports intermittent left shoulder pain for approximate 1 year. Worse this morning after lifting a bucket of water. She reports pain and anteriorly in the area of the clavicle and posteriorly over the scapula. Movement makes the pain worse. She states that the burning discomfort. There is no radicular pain or neck pain. She denies paresthesia, anesthesia motor weakness. She has restricted use secondary to pain. She denies cardiac or respiratory symptoms. She took Tylenol arthritis without improvement. Prior similar symptoms: Yes Recent Illness/Hospitalization: No Past Medical History - Allergies and Home Meds Allergies/Adverse Reactions: Allergies amoxicillin trihydrate [From Augmentin] Allergy (Verified 11/14/18 12:04) Hives Gadolinium-MRI Contrast Medium [DYE] Allergy (Verified 11/14/18 12:04) Swelling ibuprofen Allergy (Verified 11/14/18 12:04) Hives Iodinated Contrast- Oral and IV Dye [DYEE] Allergy (Verified 11/14/18 12:04) Swelling ketorolac [From Toradol] Allergy (Verified 11/14/18 12:04) Hives nitrofurantoin macrocrystalline [From Macrodantin] Allergy (Verified 11/14/18 12:04) Hives NSAIDS (Non-Steroidal Anti-Inflamma Allergy (Verified 11/14/18 12:04) Hives phenazopyridine [From Pyridium] Allergy (Verified 11/14/18 12:04) Hives potassium clavulanate [From Augmentin] Allergy (Verified 11/14/18 12:04) Hives sulfamethoxazole [From Bactrim] Allergy (Verified 11/14/18 12:04) Hives trimethoprim [From Bactrim] Allergy (Verified 11/14/18 12:04) Hives STERI-STRIPS Allergy (Uncoded 11/14/18 12:04) Other Primary Care Physician: Antonino Billy MD [Primary Care Provider] - Prior records reviewed: Yes Lives: Spouse/ Significant Other Smoking Status: Current every day smoker Alcohol: Rare Review of Systems General: Denies: Chills, Fever, Malaise, Sweats Cardiovascular: Denies: Chest pain, Palpitations, Heart racing Respiratory: Denies: Dyspnea, Cough, Dyspnea on exertion, Orthopnea, Paroxysmal nocturnal dyspnea Gastrointestinal: Denies: Nausea, Vomiting Musculoskeletal: Reports: Extremity Pain. Denies: Myalgias, Arthralgias, Neck pain, Back pain, Swelling Skin: Denies: Rash Neurological: Denies: Weakness, Parasthesia, Numbness Physical Exam Vital Signs/Narrative: Vital Signs Temp Pulse Resp BP Pulse Ox 11/14/18 12:01 97.9 F 92 20 H 167/85 H 99 Inital Vital Signs reviewed: Yes General: Well nourished, Well developed, No Acute Distress Head: Normocephalic, Atraumatic Eyes: Perrl, EOMI. Negative for: Pale conjunctiva ENT: Moist mucous membranes, No rhinorrhea Neck: Supple, Nontender, No lymphadenopathy, No JVD Cardiovascular: Regular rate, Regular rhythm, No murmurs, Normal S1, Normal S2 Respiratory: No distress, CTA bilaterally, Chest nontender Extremities: No edema, - - There is no pain in a dermatomal distribution. Negative drop test. Increased pain with abduction past 90 degrees.. Negative for: Tenderness - Pain superior anterior left chest and left scapular region. Skin: Normal color, No rash, No Trauma. Negative for: Rash Neurological: Alert, Oriented x3, Cranial nerves II-XII grossly intact, Normal Strength, Normal Sensation, Normal DTR - Biceps, brachialis and triceps reflex are 1+ and symmetric. Psychological: Normal affect, Normal Mood Diagnostic/Tx/Re-eval Then three-view x-ray left shoulder reveals no evidence of fracture, subluxation, dislocation of the left shoulder. The AC joint is normal. The clavicle is normal. There is no evidence of calcification of the supraspinatus tendon. - Medical Decision Making With history of pain for approximate 1 year x-ray was obtained to determine if there is calcification of the supraspinatus tendon. Clinically patient has inflammation of the rotator cuff and probably impingement syndrome. I was informed by her nurse at 1245 that prednisone has not taken effect. She was administered the prednisone 9 minutes ago. Drug of choice is anti- inflammatory however she lists hives. Exam is suggestive of impingement syndrome versus strain. Will treat with prednisone since she has allergy to NSAIDs and opiate analgesics are not appropriate. ED Disposition - Plan for ED Patient: Disposition: Home or Assisted Living Diagnosis: Impingement syndrome of left shoulder Instructions: What Is Impingement Syndrome? Prescriptions: Prednisone [Deltasone] 40 mg PO DAILY #10 tab Referrals: Antonino Billy MD [Primary Care Provider] - 1 Week if not improving
[2018-11-14] MEDS: predniSONE 20 MG Tablet 60 MG PO (12:34)
[2018-11-14] MEDS: HYDROcodone Bitartrate/Apap 5/325 Tablet PO (12:57)
--- NOTE | 2018-11-14 12:58 | ED.RN ---
DISCHARGE INSTRUCTIONS GIVEN TO AND REVIEWED WITH PATIENT, PATIENT DENIES QUESTIONS OR CONCERNS AND VOICES UNDERSTANDING OF DISCHARGE INSTRUCTIONS. PT AMBULATES OUT OF ROOM WITHOUT DIFFICULTY.
== END 2018-11-14 12:58 | disposition home or self-care (01) ==
PROVIDERS: Emergency Provider Emergency Medicine; Family Provider Family Medicine; PCP Family Medicine
DX: M75.42 Impingement syndrome of left shoulder (principal); F17.200 Nicotine dependence, unspecified, uncomplicated
CPT/HCPCS: 73030; 99283

== ENCOUNTER 2019-05-07 17:17 | Emergency (ER) | payer MEDICAID, SELFPAY ==
[2019-04-09 12:55] VITALS: BMI 30.4
[2019-05-07 17:19] VITALS: BP 149/86; PULSE 120; RESP 24; TEMP 36.6; O2SAT 99; BMI 31.3
--- NOTE | 2019-05-07 17:57 | CT_ITS ---
STUDY: CT ABDOMEN AND PELVIS WITHOUT CONTRAST REASON FOR EXAM: Female, 44 years old. Right flank pain. RADIATION DOSAGE (If Supplied By Facility): CTDIvol = ( 13.83 ) mGy, DLP = ( 622.89 ) mGycm TECHNIQUE: Transaxial images were obtained from the dome of the diaphragm to the symphysis pubis without oral contrast, and without intravenous contrast. Sagittal and coronal images were reconstructed. Individualized dose optimization techniques were used for this CT. COMPARISON: May 03, 2018. FINDINGS: The visualized lung bases are unremarkable. The visualized portions of the heart are within normal limits. There is decreased attenuation of the enlargement liver consistent with steatosis. There is focal fatty sparing in the gallbladder fossa. Normal gallbladder and extrahepatic biliary system. Normal spleen. Normal pancreas. Normal bilateral adrenal glands. Normal right kidney. Normal left kidney. Normal ureters. Normal visualized stomach. Normal small intestine. Normal colon. There are surgical clips in the region of the appendix consistent with a prior appendectomy. Normal abdominal aorta. Normal inferior vena cava. Normal retroperitoneum. Normal urinary bladder. Normal vaginal cuff. There is no pelvic lymphadenopathy. No free air or free fluid is seen within the peritoneal cavity. Normal abdominal wall. Normal osseous structures. CT/Abdomen/Pelvis without Cont IMPRESSION: 1. No evidence of renal, ureteral or urinary bladder abnormality. 2. Stable hepatic steatosis and hepatomegaly. 3. No evidence of acute intra-abdominal process or interval change. Electronically Signed: Haider Black DO at 19:03 EDT Tel [phone], Service support ,
--- NOTE | 2019-05-07 18:06 | ED.VISSUMM ---
- ER Visit Summary Date of Service: 05/07/19 Chief Complaint: Right flank pain History of Present Illness: The patient is a 44 F presenting with right flank pain. Patient states this started yesterday. She complains of right flank pain and nausea. She has had subjective fever. She states she initially had dysuria and thought she had a UTI. She went to urgent care today. They sent her to the ED for concern of kidney stone. She has tried Tylenol at home. Physical Examination: Vitals are stable. Patient is afebrile. Alert no acute distress. HEENT exam is unremarkable. Neck is supple. Lungs are clear and equal bilaterally. Heart is regular and tachycardic Abdomen is soft nontender nondistended. No guarding or rebound Back right CVA tenderness Extremities are unremarkable. Skin is warm and dry. Remainder of exam is unremarkable. Emergency Department Course and Treatment: Patient was given morphine, Zofran IV. Urinalysis is unremarkable. CT flank shows no evidence of renal, ureteral or urinary bladder abnormality. Stable hepatic steatosis and hepatomegaly. No evidence of acute intra-abdominal process or interval change. Patient continues to have pain and was given Valium. She has some improvement. She did mention that the pain worsens with deep inspiration. She has no chest pain or shortness of breath. No PE/DVT risk factors. D-dimer was added and is negative. Patient will follow-up with her primary care physician. She is advised to return to ED for worsening complaints. Disposition: Discharge home Impression: Right flank pain This note was generated with [employer] dictation software. It may contain incorrect words, spelling, and punctuation that were not noted in review of the chart prior to signing ED Disposition - Plan for ED Patient: Referrals: Neda Chahal DO [Primary Care Provider] -
[2019-05-07] MEDS: 0.9% Normal Saline 1,000 ML 999 ML IV (18:14)
[2019-05-07] MEDS: Ondansetron 4 MG/2 ML Vial IV (18:15)
[2019-05-07] MEDS: Morphine 4 MG/ML Syringe IV (18:15)
[2019-05-07 18:27] LABS: Bacteria 0 SEEN /hpf (None Seen); Mucous, Urine 0 SEEN /hpf (<or=2+); Red Blood Cells-Urine 0 SEEN /hpf (0-5)
[2019-05-07 18:34] LABS: Color, Urine Yellow (Yellow); Glucose, Dipstick Normal (Normal); Ketone-Dipstick Negative (Negative); Leukocyte Esterase-Dipstick Negative /ul (Negative); Nitrite-Dipstick Negative (Negative); Occult Blood-Urine Negative /ul (Negative); Protein-Dipstick Negative (Negative); Urine Bilirubin Dipstick Negative (Negative); Urine Clarity Clear (Clear); Urine Urobilinogen Normal (Normal)
[2019-05-07 18:48] LABS: Squamous Epithelial Cells - UA 0-5 SEEN /hpf (5-10); White Blood Cells 0-5 SEEN /hpf (0-5)
[2019-05-07 19:49] VITALS: BP 139/75; PULSE 81; RESP 16; O2SAT 98
[2019-05-07] MEDS: diazePAM 5 MG Tablet PO (20:46)
[2019-05-07 20:57] LABS: D-Dimer Quantitative (DVT/PE) < 0.27 FEU/ug/m (0.27-0.49)
[2019-05-07 21:00] VITALS: RESP 16
[2019-05-07 21:28] VITALS: BP 107/74; PULSE 85; RESP 16; O2SAT 98
== END 2019-05-07 21:31 | disposition home or self-care (01) ==
LOC: ED 17:59
PROVIDERS: Emergency Provider Emergency Medicine; Family Provider Family Medicine; PCP Family Medicine
DX: R10.9 Unspecified abdominal pain (principal); R11.0 Nausea; R30.0 Dysuria; K76.0 Fatty (change of) liver, not elsewhere classified; F41.9 Anxiety disorder, unspecified; F32.9 Major depressive disorder, single episode, unspecified; M79.7 Fibromyalgia; Z79.899 Other long term (current) drug therapy; Z72.0 Tobacco use
CPT/HCPCS: 74176; 81001; 85379; 96361; 96374; 96375; 99284; J7030; A4216; J2405

== ENCOUNTER 2019-10-11 08:14 | Emergency (ER) | payer MEDICAID, SELFPAY ==
[2019-08-15 10:13] VITALS: BMI 31.3
[2019-10-11 08:16] VITALS: BP 150/88; PULSE 100; RESP 17; TEMP 36.9; O2SAT 97; BMI 30.9
--- NOTE | 2019-10-11 08:28 | ED.VISSUMM ---
- ER Visit Summary Date of Service: 10/11/19 Chief Complaint: [Headache] History of Present Illness: The patient is a 44 F [presents the emergency department complaint of a headache that started this morning. Patient woke up with a headache and took 2 Tylenol and then went to work. While at work patient states that the headache continued to progress and worsen. She states that she is got some blurred vision in her right eye. She complains of nausea and photophobia. She does have history of migraine. Patient describes the pain is a 6 out of 7 and throbbing to the right side of her head mostly. Patient denies recent illness. She denies any falls or head injuries. She denies any other medical issues. No family history of brain tumors or aneurysms.] Physical Examination: [HEENT-PERRLA, EOMI. Cranial nerves II through XII grossly intact. TMs clear. Mucous membranes moist. No adenopathy. Cardiovascular-regular rate and rhythm without murmur or ectopy Lungs-clear to auscultation, chest wall stable without crepitus or subcu emphysema Abdomen-normoactive bowel sounds, soft, nontender, no rebound or rigidity, no peritoneal signs. Neuro xziw-[id number] and heel galindo testing within normal limits, negative Romberg, negative for drift, fundi benign Extremities-intact ?4, normal range of motion, normal pulses, atraumatic] Test Results: [None indicated] Emergency Department Course and Treatment: [Patient given a liter normal same fluid bolus as well as Reglan 10 mg IV and Benadryl 25 mg IV. After approximately 1 hour her headache is resolved and her vision changes have resolved. Initially I had interviewed the patient about 45 minutes into treatment and she still had a lingering headache and I had ordered DHE as well as Decadron however by the time it came from pharmacy patient's headache had resolved and she does not want any further medication.] Treatment Plan: [Patient to follow-up with primary care physician as needed. Patient advised use ibuprofen or Tylenol for further discomfort.] Disposition: [Discharged home in stable condition.] Impression: [Migrainous cephalgia-resolved] This note was generated with [employer] software. It may contain incorrect words, spelling, and punctuation that were not noted in review of the chart prior to signing ED Disposition - Plan for ED Patient: Referrals: Neda Chahal DO [Primary Care Provider] -
[2019-10-11] MEDS: DiphenhydrAMINE 50 MG/ML Syringe 25 MG IV (08:41)
[2019-10-11] MEDS: Metoclopramide 10 MG/2 ML Vial IV (08:41)
[2019-10-11] MEDS: 0.9% Normal Saline 1,000 ML 1000 ML IV (08:41)
[2019-10-11 08:54] VITALS: BP 134/69; PULSE 93; RESP 16; TEMP 36.4; O2SAT 97
--- NOTE | 2019-10-11 09:46 | ED.DEP ---
ED Disposition - Plan for ED Patient: Instructions: ED, Migraine (Classical) Referrals: Neda Chahal DO [Primary Care Provider] - As Needed
== END 2019-10-11 09:57 | disposition home or self-care (01) ==
PROVIDERS: Emergency Provider Emergency Medicine; PCP Family Medicine
DX: G43.909 Migraine, unspecified, not intractable, without status migrainosus (principal); Z72.0 Tobacco use
CPT/HCPCS: 96361; 96374; 96375; 99283; J7030; A4216; J1110

== ENCOUNTER 2019-10-24 15:09 | Emergency (ER) | payer MEDICAID, SELFPAY ==
[2019-10-24 15:10] VITALS: BP 147/68; PULSE 120; RESP 15; TEMP 38; O2SAT 98; BMI 31.9
[2019-10-24 17:32] VITALS: BP 129/81; PULSE 103; RESP 16; O2SAT 98
[2019-10-24] MEDS: Acetaminophen 325 MG Tablet 650 MG PO (17:33)
[2019-10-24] MEDS: 0.9% Normal Saline 1,000 ML 999 ML IV (17:33)
--- NOTE | 2019-10-24 17:36 | ED.DCSUM_ITS ---
- ER Visit Summary Date of Service: 10/24/19 Chief Complaint: Fever, sore throat History of Present Illness: The patient is a 44 F who presents with a fever and sore throat. Started yesterday. She has body aches all over. She took her temperature at home and it was 102 ?F. She then started with some vomiting and diarrhea last night. Nothing really makes her pain better or worse. She tried Tylenol without any relief. She did get a flu shot this year. 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 Physical Examination: Vital signs reviewed. HEENT exam unremarkable. Heart is tachycardic and regular rhythm without murmurs. Lungs are clear to auscultation. Abdomen is soft and nontender. Extremities reveal no edema. Skin exam normal. Neurologic exam normal. Test Results: Chest x-ray, influenza and strep are negative Emergency Department Course and Treatment: Patient was given Tylenol and IV fluids. Upon reevaluation she is much improved. Her influenza test was negative but her clinical symptoms are consistent with influenza. I will treat her with Tamiflu. She will continue Tylenol and pushing fluids at home. Treatment Plan: [] Disposition: Discharge Impression: Influenza This note was generated with [employer] dictation software. It may contain incorrect words, spelling, and punctuation that were not noted in review of the chart prior to signing ED Disposition - Plan for ED Patient: Disposition: Home or Assisted Living Instructions: INFLUENZA (Adult) Prescriptions: Oseltamivir Phosphate [Tamiflu] 75 mg PO BID #10 cap Transmission Status: Pending to [facility] Referrals: Neda Chahal DO [Primary Care Provider] - Additional Instructions: Your prescription was electronically transmitted to [facility]
[2019-10-24] MEDS: Ondansetron 4 MG/2 ML Vial IV (18:03)
--- NOTE | 2019-10-24 18:34 | RAD_ITS ---
STUDY: X-RAY CHEST REASON FOR EXAM: Female, 44 years old. COUGH AND CONGESTION WITH FEVER. TECHNIQUE: Frontal and lateral views of the chest. COMPARISON: July 06, 2011 FINDINGS: The lungs are clear and expanded. There is no demonstrated pleural abnormality. Normal size heart. Normal mediastinum and alan. Normal visualized pulmonary arteries. Normal visualized aortic arch and descending thoracic aorta. Normal visualized thoracic spine. Normal visualized ribs, clavicles, and shoulders. There is no demonstrated abnormality of the visualized soft tissue structures of the upper abdomen. RAD/Chest PA and Lateral IMPRESSION: Normal x-ray examination of the chest. Electronically Signed: Emil Dan MD at 18:46 EST , Service support ,
[2019-10-24 19:15] VITALS: BP 116/74; PULSE 80; RESP 16; O2SAT 96
== END 2019-10-24 19:22 | disposition home or self-care (01) ==
PROVIDERS: Emergency Provider Emergency Medicine; PCP Family Medicine
DX: J11.1 Influenza due to unidentified influenza virus with other respiratory manifestations (principal); Z72.0 Tobacco use
CPT/HCPCS: 71046; 87804; 87880; 96361; 96374; 99285; J7030; A4216; J2405

== ENCOUNTER → 2019-12-07 11:14 | Outpatient (CLI) | payer MEDICAID, SELFPAY ==
--- NOTE | 2019-12-07 | LES_PTH ---
PATIENT: FELIX ARITA LOC: [facility] U#:[id number] AGE/SX: 50/F ROOM: RE12/07/[address]: Dr. Wayne Cote MD : [id number] BED: DIS: SPEC #: [id number] RECD: 12/07/19 12:07 STATUS: CRISTHIAN NAHID #: [id number] HERNÁN: 12/07/19 00:[address]: Wayne Cote Chi DEPT: SURGICAL PATHOLOGY RECD BY: Matt Haro Tissues: Skin of head, NOS Procedures: Surgery Specimen Level IV HEADER OPERATION: Biopsy PRE-OP DIAGNOSIS: L98.9 TISSUE SUBMITTED: Right rastafarian MICROSCOPIC DIAGNOSIS Right rastafarian lesion, biopsy: Squamous papilloma. ALEKSANDR:jesus 12/11/19 COMMENT Case has been reviewed in consultation with Dr. Sharma who concurs with the above diagnosis. IDC:AM MICROSCOPIC DESCRIPTION Slides are reviewed. GROSS DESCRIPTION Received in fixative is one container labeled with the patient's name and designated right rastafarian. The specimen consists of a piece of waite-brown skin measuring 0.3 x 0.2 x 0.2 cm. The specimen is inked and submitted entirely in one cassette. / SJ:rg 12/10/19 TC:1 CPT: 39759
--- NOTE | 2019-12-07 11:33 | RAD_ITS ---
STUDY: X-RAY - ABDOMEN/PELVIS REASON FOR EXAM: Female, 44 years old. ABDOMINAL PAIN, CONSTIPATION, HX HYSTERECTOMY TECHNIQUE: AP supine and upright views of the abdomen and pelvis. COMPARISON: None. FINDINGS: Normal visualized lung bases. There is a moderate amount of colonic fecal material. There is no demonstrated free abdominal air. The visualized liver, spleen and kidneys are grossly normal in size and morphology. Normal soft tissue structures. Normal visualized osseous structures. RAD/Abd Inc Decub and/or Erect IMPRESSION: Moderate amount of fecal material is seen in the colon. Electronically Signed: Joe Guaman, at 12:51 EDT , Service support ,
[2019-12-07 12:28] LABS: Absolute Lymphocyte Count 2.93 X10^3/uL (0.83-4.51); Absolute Neutrophil Count 3.4 X10^3/uL (2.0-7.7); Basophil# 0.05 X10^3/uL; Basophil% 0.7 % (0-1); Eosinophil# 0.18 X10^3/uL; Eosinophils% 2.6 % (0-5); Hematocrit 45.1 % (37-47); Hemoglobin 14.9 g/dL (12.0-15.0); Lymphocyte # 2.93 X10^3/ul (4.0); Lymphocyte % 41.7 % (19-41); Mean Corpuscular Hgb 31.1 pg (27.0-32.0); Mean Corpuscular Volume 94.2 fL (81-99); Mean Platelet Vol. 11.9 fl (6.2-12.0); Monocyte# 0.42 X10^3/uL; NRBC Flagged by Analyzer 0 % (0-5); Neutrophil # 3.43 X10^3/uL (2.7-7.7); Neutrophil % 48.7 % (47-70); Platelet Count 248 K/mm3 (150-450); RBC Distribution Width CV 12.1 % (11.6-14.6); RBC Distribution Width SD 42.5 fl (35.1-43.9); Red Blood Count 4.79 M/mm3 (4.2-5.4)
[2019-12-07 12:48] LABS: ALB/GLOB Ratio 1.1 RATIO (0.9-2.4); AST(SGOT) 56 U/L (15-37); Alanine Aminotransfer ALT/SGPT 116 U/L (13-56); Albumin, Serum 4.1 g/dL (3.2-5.0); Alkaline Phosphatase 96 U/L (45-117); Anion Gap 7 (5-15); BUN 8 mg/dL (7-18); BUN/Creat Ratio 9.9 RATIO (10-20); Calcium,Total 8.9 mg/dL (8.5-10.1); Chloride 107 mmol/L (98-107); Creatinine, Serum 0.81 mg/dL (0.55-1.02); EST Glomerular Filtration Rate 83 mL/min (>60); Est Glom Filt Rate - Afr Amer 100 mL/min (>60); Globulin 3.6 g/dL (2.2-4.2); Glucose 81 mg/dL (74-106); Potassium 4.1 mmol/L (3.5-5.1); Protein, Total 7.7 g/dL (6.4-8.2); Sodium Level 140 mmol/L (136-145); Thyroid Stim Hormone (TSH) 3.61 uIU/mL (0.358-3.74)
[2019-12-09 14:06] LABS: Almond <0.10 kU/L (Class 0); Banana <0.10 kU/L (Class 0); Barley, Whole Grain <0.10 kU/L (Class 0); Beef <0.10 kU/L (Class 0); Carrot <0.10 kU/L (Class 0); Casein <0.10 kU/L (Class 0); Cashew <0.10 kU/L (Class 0); Celery <0.10 kU/L (Class 0); Cheddar Cheese <0.10 kU/L (Class 0); Chicken <0.10 kU/L (Class 0); Chocolate <0.10 kU/L (Class 0); Clam <0.10 kU/L (Class 0); Codfish <0.10 kU/L (Class 0); Corn <0.10 kU/L (Class 0); Crab <0.10 kU/L (Class 0); Egg, White <0.10 kU/L (Class 0); Egg, Whole <0.10 kU/L (Class 0); Egg, Yolk <0.10 kU/L (Class 0); Garlic <0.10 kU/L (Class 0); Gluten <0.10 kU/L (Class 0); Hazelnut/Filbert <0.10 kU/L (Class 0); Lettuce <0.10 kU/L (Class 0); Lobster <0.10 kU/L (Class 0); Milk (Cow) <0.10 kU/L (Class 0); Oat <0.10 kU/L (Class 0); Onion <0.10 kU/L (Class 0); Orange <0.10 kU/L (Class 0); Pea <0.10 kU/L (Class 0); Peach <0.10 kU/L (Class 0); Pecan <0.10 kU/L (Class 0); Pork <0.10 kU/L (Class 0); Potato, White <0.10 kU/L (Class 0); Rice <0.10 kU/L (Class 0); Rye <0.10 kU/L (Class 0); Salmon <0.10 kU/L (Class 0); Shrimp 0.33 kU/L (Class I); Soybean <0.10 kU/L (Class 0); Strawberry <0.10 kU/L (Class 0); Tomato <0.10 kU/L (Class 0); Tuna <0.10 kU/L (Class 0); Walnut, (Food) <0.10 kU/L (Class 0); Wheat <0.10 kU/L (Class 0); Yeast <0.10 kU/L (Class 0)
[2019-12-09 15:54] LABS: Apple <0.10 kU/L (Class 0); Lactalbumin, Alpha <0.10 kU/L (Class 0); Peanut <0.10 kU/L (Class 0); Turkey <0.10 kU/L (Class 0)
[2019-12-10 05:06] LABS: Alternaria tenuis <0.10 kU/L (Class 0); Ash, White <0.10 kU/L (Class 0); Aspergillus fumigatus <0.10 kU/L (Class 0); Bermuda Grass <0.10 kU/L (Class 0); Birch <0.10 kU/L (Class 0); Black Walnut <0.10 kU/L (Class 0); Cat Hair / Dander,Stand <0.10 kU/L (Class 0); Cedar, Mountain <0.10 kU/L (Class 0); Cladosporium herbarum <0.10 kU/L (Class 0); Cockroach, American 0.56 kU/L (Class II); Cottonwood <0.10 kU/L (Class 0); D farinae Mite 0.16 kU/L (Class 0/I); D pteronyssinus 0.16 kU/L (Class 0/I); Dog Epithelia <0.10 kU/L (Class 0); Elm, American White <0.10 kU/L (Class 0); Immunoglobulin E 311 IU/mL (6-495); Maple/Box Elder <0.10 kU/L (Class 0); Mulberry, White <0.10 kU/L (Class 0); Oak, White <0.10 kU/L (Class 0); Pecan <0.10 kU/L (Class 0); Penicillium Notatum <0.10 kU/L (Class 0); Pigweed, Rough <0.10 kU/L (Class 0); Ragweed, Short/Common <0.10 kU/L (Class 0); Russian Thistle <0.10 kU/L (Class 0); Sheep Sorrel <0.10 kU/L (Class 0); Sycamore, American <0.10 kU/L (Class 0); Timothy Grass <0.10 kU/L (Class 0)
[2019-12-11 12:47] LABS: Mouse Urine <0.10 kU/L (Class 0)
== END ==
PROVIDERS: PCP Family Medicine Geriatric Medicine; Referring Provider Family Medicine Geriatric Medicine; Visit Provider Family Medicine Geriatric Medicine
DX: R10.9 Unspecified abdominal pain (principal); R53.83 Other fatigue; T78.40XA Allergy, unspecified, initial encounter; L98.9 Disorder of the skin and subcutaneous tissue, unspecified
CPT/HCPCS: 36415; 74019; 80053; 82785; 84443; 85025; 86003; 88305

== ENCOUNTER → 2019-12-10 16:20 | Outpatient (CLI) | payer MEDICAID, SELFPAY ==
[2019-12-10 16:51] LABS: Absolute Lymphocyte Count 3.41 X10^3/uL (0.83-4.51); Absolute Neutrophil Count 3.2 X10^3/uL (2.0-7.7); Basophil# 0.07 X10^3/uL; Basophil% 0.9 % (0-1); Eosinophil# 0.21 X10^3/uL; Eosinophils% 2.8 % (0-5); Hematocrit 44.4 % (37-47); Hemoglobin 15.1 g/dL (12.0-15.0); Lymphocyte # 3.41 X10^3/ul (4.0); Lymphocyte % 45.4 % (19-41); Mean Corpuscular Hgb 31.7 pg (27.0-32.0); Mean Corpuscular Volume 93.3 fL (81-99); Mean Platelet Vol. 11.8 fl (6.2-12.0); Monocyte# 0.57 X10^3/uL; Monocyte% 7.6 % (0-10); NRBC Flagged by Analyzer 0 % (0-5); Neutrophil # 3.23 X10^3/uL (2.7-7.7); Platelet Count 245 K/mm3 (150-450); RBC Distribution Width CV 12.1 % (11.6-14.6); RBC Distribution Width SD 41.9 fl (35.1-43.9); Red Blood Count 4.76 M/mm3 (4.2-5.4); White Blood Count 7.5 K/mm3 (4.4-11.0)
[2019-12-10 17:28] LABS: ALB/GLOB Ratio 1.1 RATIO (0.9-2.4); AST(SGOT) 56 U/L (15-37); Alanine Aminotransfer ALT/SGPT 120 U/L (13-56); Alkaline Phosphatase 101 U/L (45-117); Amylase 25 U/L (25-115); Anion Gap 6 (5-15); BUN 9 mg/dL (7-18); BUN/Creat Ratio 11.4 RATIO (10-20); Calcium,Total 8.9 mg/dL (8.5-10.1); Chloride 110 mmol/L (98-107); Creatinine, Serum 0.79 mg/dL (0.55-1.02); EST Glomerular Filtration Rate 84 mL/min (>60); Est Glom Filt Rate - Afr Amer 102 mL/min (>60); Globulin 3.5 g/dL (2.2-4.2); Glucose 78 mg/dL (74-106); Lipase 100 U/L (73-393); Potassium 3.8 mmol/L (3.5-5.1); Protein, Total 7.5 g/dL (6.4-8.2); Sodium Level 141 mmol/L (136-145)
[2019-12-12 05:06] LABS: HEPATITIS B SURFACE AG Negative (Negative); Hepatitis A AB, Total Negative (Negative); Hepatitis A IgM Antibody Negative (Negative); Hepatitis B Core AB IgM Negative (Negative); Hepatitis B Core Ab Total Negative (Negative); Hepatitis C Ab <0.1 s/co ratio (0.0-0.9)
[2019-12-12 05:17] LABS: Hep B Surface Antibodies Reactive (.)
== END ==
PROVIDERS: PCP Family Medicine Geriatric Medicine; Visit Provider Family Medicine Geriatric Medicine
DX: R10.9 Unspecified abdominal pain (principal); R74.8 Abnormal levels of other serum enzymes
CPT/HCPCS: 36415; 74177; 80053; 82150; 83690; 84443; 85025; 86704; 86705; 86706; 86708; 86709; 86803; 87340; Q9967

== ENCOUNTER → 2019-12-10 17:18 | Outpatient (CLI) | payer MEDICAID, SELFPAY ==
--- NOTE | 2019-12-10 17:25 | CT_ITS ---
STUDY: CT ABDOMEN AND PELVIS WITH CONTRAST REASON FOR EXAM: Female, 44 years old. ABDOMINAL PAIN RADIATION DOSAGE (If Supplied By Facility): CTDIvol = ( 13.74 ) mGy, DLP = ( 830.06 ) mGycm TECHNIQUE: Transaxial images were obtained from the dome of the diaphragm to the symphysis pubis with oral contrast. Oral and amp; IV Gastrografin and amp; 100mL Isovue-300 was administered. Sagittal and coronal images were reconstructed. Individualized dose optimization techniques were used for this CT. COMPARISON: CT of abdomen and pelvis dated May 07, 2019 FINDINGS: The visualized lung bases are unremarkable. There is decreased attenuation of the liver consistent with steatosis. No intrahepatic biliary duct dilatation or liver mass. The gallbladder is contracted. Normal spleen. Normal pancreas. Normal bilateral adrenal glands. Normal right kidney. Normal left kidney. No hydronephrosis or renal masses. No large stones. There is a small hiatal hernia. Normal small intestine. Normal colon. No bowel dilatation or obstruction. No free air or free fluid. The appendix is visualized and appears normal. Normal abdominal aorta. Normal inferior vena cava. Normal retroperitoneum. Normal urinary bladder. There is absence of the uterus consistent with a prior hysterectomy. Chronic postsurgical scarring seen near the umbilicus. Hernia mesh is also present in the anterior abdominal region near the umbilicus. Unremarkable osseous structures. CT/Abdomen/Pelvis WITH Contrast IMPRESSION: No demonstrated acute or significant process of the abdomen and pelvis. Electronically Signed: Zenon Fowler MD at 19:42 EDT , Service support ,
== END ==
PROVIDERS: PCP Family Medicine Geriatric Medicine; Visit Provider Family Medicine Geriatric Medicine
DX: R10.9 Unspecified abdominal pain (principal)
CPT/HCPCS: 74177; Q9967

== ENCOUNTER → 2020-01-01 15:32 | Outpatient (CLI) | payer MEDICAID, SELFPAY ==
[2020-01-01 16:32] LABS: Absolute Neutrophil Count 5.3 X10^3/uL (2.0-7.7); Basophil# 0.05 X10^3/uL; Basophil% 0.5 % (0-1); Eosinophil# 0.27 X10^3/uL; Eosinophils% 2.7 % (0-5); Hematocrit 42.7 % (37-47); Hemoglobin 14.2 g/dL (12.0-15.0); Lymphocyte % 38.3 % (19-41); Mean Corp Hgb Conc 33.3 g/dL (32-36); Mean Corpuscular Hgb 31.1 pg (27.0-32.0); Mean Corpuscular Volume 93.4 fL (81-99); Mean Platelet Vol. 11.7 fl (6.2-12.0); Monocyte# 0.65 X10^3/uL; Monocyte% 6.4 % (0-10); NRBC Flagged by Analyzer 0 % (0-5); Neutrophil # 5.27 X10^3/uL (2.7-7.7); Neutrophil % 51.8 % (47-70); Platelet Count 213 K/mm3 (150-450); RBC Distribution Width CV 12.2 % (11.6-14.6); Red Blood Count 4.57 M/mm3 (4.2-5.4); White Blood Count 10.2 K/mm3 (4.4-11.0)
[2020-01-01 16:40] LABS: Erythrocyte Sedimentation Rate 13 mm/hr (0-20)
[2020-01-01 17:08] LABS: ALB/GLOB Ratio 1.2 RATIO (0.9-2.4); AST(SGOT) 36 U/L (15-37); Alanine Aminotransfer ALT/SGPT 85 U/L (13-56); Albumin, Serum 3.8 g/dL (3.2-5.0); Alkaline Phosphatase 86 U/L (45-117); Anion Gap 5 (5-15); BUN 10 mg/dL (7-18); BUN/Creat Ratio 13.2 RATIO (10-20); CRP < 2.90 mg/L (0.0-3.0); Calcium,Total 8.7 mg/dL (8.5-10.1); Chloride 110 mmol/L (98-107); Creatinine, Serum 0.76 mg/dL (0.55-1.02); EST Glomerular Filtration Rate 89 mL/min (>60); Est Glom Filt Rate - Afr Amer 108 mL/min (>60); Globulin 3.3 g/dL (2.2-4.2); Glucose 104 mg/dL (74-106); Potassium 3.8 mmol/L (3.5-5.1); Protein, Total 7.1 g/dL (6.4-8.2); Sodium Level 140 mmol/L (136-145); Thyroid Stim Hormone (TSH) 2.15 uIU/mL (0.358-3.74)
== END ==
PROVIDERS: PCP Family Medicine Geriatric Medicine; Referring Provider Family Medicine Geriatric Medicine; Visit Provider Family Medicine Geriatric Medicine
DX: K76.0 Fatty (change of) liver, not elsewhere classified (principal); R50.9 Fever, unspecified; R53.83 Other fatigue
CPT/HCPCS: 36415; 80053; 84443; 85025; 85652; 86140; 87040

== ENCOUNTER → 2020-02-12 11:43 | Outpatient (CLI) | payer MEDICAID, SELFPAY ==
[2020-02-12 12:32] LABS: Absolute Lymphocyte Count 3.12 X10^3/uL (0.83-4.51); Absolute Neutrophil Count 4.8 X10^3/uL (2.0-7.7); Basophil# 0.05 X10^3/uL; Basophil% 0.6 % (0-1); Eosinophil# 0.17 X10^3/uL; Eosinophils% 1.9 % (0-5); Hematocrit 42.5 % (37-47); Hemoglobin 14.1 g/dL (12.0-15.0); Lymphocyte # 3.12 X10^3/ul (4.0); Lymphocyte % 35.7 % (19-41); Mean Corp Hgb Conc 33.2 g/dL (32-36); Mean Corpuscular Hgb 32.1 pg (27.0-32.0); Mean Corpuscular Volume 96.8 fL (81-99); Mean Platelet Vol. 12.2 fl (6.2-12.0); Monocyte# 0.55 X10^3/uL; Monocyte% 6.3 % (0-10); NRBC Flagged by Analyzer 0 % (0-5); Neutrophil # 4.82 X10^3/uL (2.7-7.7); Neutrophil % 55.2 % (47-70); Platelet Count 193 K/mm3 (150-450); RBC Distribution Width SD 45.9 fl (35.1-43.9); Red Blood Count 4.39 M/mm3 (4.2-5.4); White Blood Count 8.7 K/mm3 (4.4-11.0)
[2020-02-12 13:04] LABS: ALB/GLOB Ratio 1.1 RATIO (0.9-2.4); AST(SGOT) 28 U/L (15-37); Alanine Aminotransfer ALT/SGPT 68 U/L (13-56); Albumin, Serum 3.8 g/dL (3.2-5.0); Alkaline Phosphatase 79 U/L (45-117); Anion Gap 6 (5-15); BUN 12 mg/dL (7-18); BUN/Creat Ratio 15.7 RATIO (10-20); Chloride 108 mmol/L (98-107); Creatinine, Serum 0.76 mg/dL (0.55-1.02); EST Glomerular Filtration Rate 88 mL/min (>60); Est Glom Filt Rate - Afr Amer 106 mL/min (>60); Globulin 3.5 g/dL (2.2-4.2); Glucose 87 mg/dL (74-106); Potassium 4.4 mmol/L (3.5-5.1); Protein, Total 7.3 g/dL (6.4-8.2); Sodium Level 139 mmol/L (136-145); Thyroid Stim Hormone (TSH) 2.13 uIU/mL (0.358-3.74)
== END ==
PROVIDERS: PCP Family Medicine Geriatric Medicine; Visit Provider Family Medicine Geriatric Medicine
DX: I95.1 Orthostatic hypotension (principal)
CPT/HCPCS: 36415; 80053; 84443; 85025

== ENCOUNTER 2020-02-13 17:40 | Emergency (ER) | payer MEDICAID, SELFPAY ==
[2020-02-13 17:42] VITALS: BP 157/95; PULSE 110; RESP 18; TEMP 37.9; O2SAT 99; BMI 33.3
[2020-02-13 17:47] VITALS: O2SAT 100
--- NOTE | 2020-02-13 18:02 | RAD_ITS ---
STUDY: X-RAY CHEST REASON FOR EXAM: Female, 44 years old. FATIGUE, GENERAL BODY ACHES, SHORTNESS OF BREATH, FEVER, COUGH. TECHNIQUE: Single frontal view of the chest. COMPARISON: 10/24/2019 FINDINGS: The lungs are clear and expanded. There is no demonstrated pleural abnormality. Normal size heart. Normal mediastinum and alan. Normal visualized pulmonary arteries. Normal visualized aortic arch and descending thoracic aorta. Normal visualized thoracic spine. Normal visualized ribs, clavicles, and shoulders. There is no demonstrated abnormality of the visualized soft tissue structures of the upper abdomen. RAD/Chest 1 View (Portable) IMPRESSION: Normal x-ray examination of the chest. Electronically Signed: Indra Garcia MD at 18:37 EDT Tel , Service support ,
--- NOTE | 2020-02-13 18:02 | EKG12_ITS ---
Test Reason : SOB Blood Pressure : / mmHG Vent. Rate : 099 BPM Atrial Rate : 099 BPM P-R Int : 156 ms QRS Dur : 076 ms QT Int : 330 ms P-R-T Axes : 057 069 035 degrees QTc Int : 423 ms Normal sinus rhythm Normal ECG Confirmed by RAYNA MELGAR, OPAL ([id number]), associate genetics professor JAZMYNE PRATT ([id number]) on 02/15/2020 11:14:38 AM Referred By: BEN Confirmed By:OPAL WAY MD
--- NOTE | 2020-02-13 18:15 | NURSING ---
NO OLD EKGS
[2020-02-13] MEDS: 0.9% Normal Saline 1,000 ML 999 ML IV (18:54)
[2020-02-13] MEDS: LORazepam 2 MG/ML Syringe 0.5 MG IV (18:54)
[2020-02-13] MEDS: Acetaminophen 500 MG Tablet 1000 MG PO (18:55)
[2020-02-13 19:05] VITALS: BP 147/93; PULSE 98; O2SAT 97
[2020-02-13 19:07] LABS: Absolute Lymphocyte Count 3.36 X10^3/uL (0.83-4.51); Absolute Neutrophil Count 5.2 X10^3/uL (2.0-7.7); Basophil# 0.04 X10^3/uL; Basophil% 0.4 % (0-1); Eosinophil# 0.21 X10^3/uL; Eosinophils% 2.2 % (0-5); Hematocrit 42.9 % (37-47); Hemoglobin 14.4 g/dL (12.0-15.0); Lymphocyte # 3.36 X10^3/ul (4.0); Lymphocyte % 35.2 % (19-41); Mean Corp Hgb Conc 33.6 g/dL (32-36); Mean Corpuscular Hgb 32.4 pg (27.0-32.0); Mean Corpuscular Volume 96.4 fL (81-99); Mean Platelet Vol. 11.6 fl (6.2-12.0); Monocyte# 0.71 X10^3/uL; Monocyte% 7.4 % (0-10); NRBC Flagged by Analyzer 0 % (0-5); Neutrophil # 5.21 X10^3/uL (2.7-7.7); Neutrophil % 54.6 % (47-70); Platelet Count 214 K/mm3 (150-450); RBC Distribution Width CV 12.7 % (11.6-14.6); Red Blood Count 4.45 M/mm3 (4.2-5.4); White Blood Count 9.6 K/mm3 (4.4-11.0)
[2020-02-13 19:20] LABS: Anion Gap 5 (5-15); BUN 10 mg/dL (7-18); BUN/Creat Ratio 12.6 RATIO (10-20); Chloride 112 mmol/L (98-107); EST Glomerular Filtration Rate 84 mL/min (>60); Est Glom Filt Rate - Afr Amer 101 mL/min (>60); Estimated Creatinine Clearance 75.78 ml/min; Glucose 92 mg/dL (74-106); Potassium 3.6 mmol/L (3.5-5.1); Sodium Level 142 mmol/L (136-145)
[2020-02-13 19:30] LABS: D-Dimer Quantitative (DVT/PE) <= 0.27 FEU/ug/m (0.27-0.49)
[2020-02-13 20:00] VITALS: BP 128/80; PULSE 93; RESP 18; O2SAT 97
--- NOTE | 2020-02-13 20:38 | ED.VISSUMM ---
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 She reports that she has felt fatigued and tired for the past 2 days. She is had subjective fever and chills. She has a nonproductive cough that began today. She reports that she is very short of breath with this. She has severe chest pain with coughing. She states that her throat is scratchy. Patient has not been quarantining. 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 She does not have any known exposure to COVID-19. Physical Examination: Vitals: Stable. Afebrile. General: Well-nourished and well-developed. Head: Normocephalic atraumatic. Neck: Supple, no lymphadenopathy. No JVD. Nontender. Cardiovascular: Regular rate and rhythm. No murmurs. Respiratory: No respiratory distress. Clear to auscultation bilaterally. Abdominal: Soft, nontender, nondistended, normal bowel sounds. No guarding, rebound, or peritoneal signs. Back: Nontender. Extremities: Nontender, no edema. Skin: Normal color, no rash. Neurologic: Alert and oriented ?3. Cranial nerves II through XII are intact. Normal strength and sensation. Psych: Normal affect. Test Results: EKG is sinus at 99 with no acute changes. D-dimer is negative. Chem-7 shows a chloride of 112. Lactic acid is 1.0. CBC is normal. Chest x-ray is normal. COVID-19 is negative. Emergency Department Course and Treatment: Patient was given a liter of normal saline. She is given Tylenol p.o. She is resting more comfortably. I had a prolonged discussion with her about the sensitivity of the test for COVID-19 and that I suspect that this may still be what she has. Treatment Plan: Patient is instructed to quarantine for the next 2 weeks. She is given a note for work. I also discussed with her about getting a repeat COVID-19 test if she is not improving. Follow-up with Dr. Cote in 2 weeks if not improving. Return the emerge department for worsening difficulty breathing or other concerns. Disposition: To home in improved and stable condition. Impression: 1. URI. 2. Suspected COVID-19 infection. This note was generated with Dragon dictation software. It may contain incorrect words, spelling, and punctuation that were not noted in review of the chart prior to signing ED Disposition - Plan for ED Patient: Disposition: Home or Assisted Living Instructions: ED Upper Resp Infec No Abx Tx Referrals: Wayne Cote Chi, MD [Primary Care Provider] - 10-14 Days if not better
[2020-02-13 21:22] VITALS: BP 118/63; PULSE 75; RESP 18; O2SAT 98
== END 2020-02-13 21:22 | disposition home or self-care (01) ==
LOC: ED 18:39
PROVIDERS: Emergency Provider Emergency Medicine; PCP Family Medicine Geriatric Medicine
DX: Z03.818 Encounter for observation for suspected exposure to other biological agents ruled out (principal); J06.9 Acute upper respiratory infection, unspecified
CPT/HCPCS: 71045; 80048; 83605; 85025; 85379; 87040; 87635; 93005; 96361; 96374; 99285; C9803; G2023; J7030; A4216; U0003

== ENCOUNTER → 2020-02-18 09:39 | Outpatient (CLI) | payer MEDICAID, SELFPAY ==
[2020-02-13 17:42] VITALS: BMI 33.3
[2020-02-19 07:35] LABS: SARS-COV-2 TOTAL ABS Nonreactive (Nonreactive)
== END ==
PROVIDERS: PCP Family Medicine Geriatric Medicine; Visit Provider Family Medicine Geriatric Medicine
DX: U07.1 COVID-19 (principal)
CPT/HCPCS: 36415; 86769

== ENCOUNTER → 2020-04-01 14:55 | Outpatient (CLI) | payer MEDICAID, SELFPAY ==
[2020-04-01 15:39] LABS: Absolute Lymphocyte Count 4.89 X10^3/uL (0.83-4.51); Absolute Neutrophil Count 3.4 X10^3/uL (2.0-7.7); Basophil# 0.09 X10^3/uL; Eosinophil# 0.17 X10^3/uL; Eosinophils% 1.8 % (0-5); Hematocrit 44.1 % (37-47); Hemoglobin 14.5 g/dL (12.0-15.0); Lymphocyte # 4.89 X10^3/ul (4.0); Lymphocyte % 53.2 % (19-41); Mean Corp Hgb Conc 32.9 g/dL (32-36); Mean Corpuscular Hgb 31.5 pg (27.0-32.0); Mean Corpuscular Volume 95.9 fL (81-99); Mean Platelet Vol. 11.8 fl (6.2-12.0); Monocyte# 0.62 X10^3/uL; Monocyte% 6.7 % (0-10); NRBC Flagged by Analyzer 0 % (0-5); Neutrophil # 3.41 X10^3/uL (2.7-7.7); Neutrophil % 37.1 % (47-70); Platelet Count 240 K/mm3 (150-450); RBC Distribution Width CV 12.2 % (11.6-14.6); RBC Distribution Width SD 42.5 fl (35.1-43.9); White Blood Count 9.2 K/mm3 (4.4-11.0)
[2020-04-01 16:16] LABS: ALB/GLOB Ratio 1.2 RATIO (0.9-2.4); AST(SGOT) 32 U/L (15-37); Alanine Aminotransfer ALT/SGPT 68 U/L (13-56); Albumin, Serum 4.2 g/dL (3.2-5.0); Alkaline Phosphatase 84 U/L (45-117); Anion Gap 5 (5-15); BUN 10 mg/dL (7-18); BUN/Creat Ratio 10.4 RATIO (10-20); Calcium,Total 8.9 mg/dL (8.5-10.1); Chloride 105 mmol/L (98-107); Creatinine, Serum 0.96 mg/dL (0.55-1.02); EST Glomerular Filtration Rate 68 mL/min (>60); Est Glom Filt Rate - Afr Amer 82 mL/min (>60); Globulin 3.6 g/dL (2.2-4.2); Glucose 83 mg/dL (74-106); Potassium 3.7 mmol/L (3.5-5.1); Protein, Total 7.8 g/dL (6.4-8.2); Sodium Level 139 mmol/L (136-145); Thyroid Stim Hormone (TSH) 3.18 uIU/mL (0.358-3.74)
== END ==
PROVIDERS: PCP Family Medicine Geriatric Medicine; Visit Provider Family Medicine Geriatric Medicine
DX: R53.83 Other fatigue (principal)
CPT/HCPCS: 36415; 80053; 84443; 85025

== ENCOUNTER 2020-04-11 18:00 | Emergency (ER) | payer MEDICAID, SELFPAY ==
[2020-04-11 18:01] VITALS: BP 150/111; PULSE 93; RESP 17; TEMP 37; O2SAT 97; BMI 31.2
--- NOTE | 2020-04-11 18:20 | US_ITS ---
STUDY: ABDOMINAL ULTRASOUND - RIGHT UPPER QUADRANT REASON FOR VISIT: Female, 45 years old RUQ pain -- 1 DAY TECHNIQUE: Ultrasound evaluation of the right upper quadrant was performed with real-time and static donnelly-scale imaging. TECHNICAL QUALITY: Adequate. COMPARISON: CT abdomen and pelvis 12/10/2019 FINDINGS: Liver: The liver measures 18 cm. There is increased echogenicity consistent with fatty infiltration. The bile ducts are within normal limits. There is hepatic color flow. The direction of portal flow is hepatopetal. There is no demonstrated mass lesion. Gallbladder: Normal distended gallbladder. The gallbladder wall measures 1.5 mm. There is a negative sonographic Cleveland''s sign. There is no pericholecystic fluid. There are no gallstones. Common Bile Duct (C.B.D.): The common bile duct measures 4.8 mm. Pancreas: Normal size of the head, body and tail of the pancreas. There is normal echogenicity of the pancreas. There is no demonstrated pancreatic mass or cyst. Right Kidney: Normal size of the right kidney. The right kidney measures 10.8 cm. Normal renal cortex. The right cortex measures 1.3 cm. There is no demonstrated renal mass or cyst. There is no right hydronephrosis. US/Gallbladder IMPRESSION: Normal right upper quadrant ultrasound examination. Electronically Signed: Emil Dan MD at 20:37 EDT , Service support ,
--- NOTE | 2020-04-11 18:20 | ED.VIS.GI ---
History of Present Illness Chief Complaint: Abd Pain Informant: Patient - Abdominal Pain/Flank Pain Onset: Yesterday Context: Gradual Onset Timing: Intermittent, Lasts - hrs, - - currently, not colicky Quality: Aching Location: RUQ - w/ radiation into right periscapular area in back Current Severity: Severe Maximum Severity: Severe Worsened by: Food Relieved by: Nothing - Nausea/Vomiting/Emesis GI Symptom: Nausea, Vomiting Onset: Yesterday - Diarrhea/Melena/Hematochezia GI Symptom: Diarrhea. Negative for: Melena, Hematochezia Onset: Today Stool Quality: Loose. Negative for: Mucous, Black, CALE per rectum Severity: Mild Associated Symptoms: Negative for: Dysuria, Frequency, Hematuria, Urgency Narrative: Patient with severe upper abdominal pain that is worse in the right. Never had this before but started yesterday, seems to be after meals. States she cannot eat and is extremely nauseated today. No fevers or chills. No coughing or shortness of breath. Pain is not pleuritic. Prior similar symptoms: No Recent Illness/Hospitalization: No Past Medical History - Allergies and Home Meds Allergies/Adverse Reactions: Allergies amoxicillin trihydrate [From Augmentin] Allergy (Verified 04/11/20 18:01) Hives Gadolinium-MRI Contrast Medium [DYE] Allergy (Verified 04/11/20 18:01) Swelling ibuprofen Allergy (Verified 04/11/20 18:01) Hives Iodinated Contrast Media [DYEE] Allergy (Verified 04/11/20 18:01) Swelling ketorolac [From Toradol] Allergy (Verified 04/11/20 18:01) Hives nitrofurantoin macrocrystalline [From Macrodantin] Allergy (Verified 04/11/20 18:01) Hives NSAIDS (Non-Steroidal Anti-Inflamma Allergy (Verified 04/11/20 18:01) Hives phenazopyridine [From Pyridium] Allergy (Verified 04/11/20 18:01) Hives potassium clavulanate [From Augmentin] Allergy (Verified 04/11/20 18:01) Hives sulfamethoxazole [From Bactrim] Allergy (Verified 04/11/20 18:01) Hives trimethoprim [From Bactrim] Allergy (Verified 04/11/20 18:01) Hives STERI-STRIPS Allergy (Uncoded 04/11/20 18:01) Other Primary Care Physician: Wayne Cote Chi, MD [Primary Care Provider] - Past Medical History: None Surgical History: appendectomy, hysterectomy, - - Smoking Status: Former smoker Review of Systems General: Reports: Malaise. Denies: Chills, Fever, Sweats Eyes: Denies: Visual changes - bilaterally, Diplopia ENT: Denies: Rhinorrhea, Sore throat Cardiovascular: Denies: Chest pain, Palpitations Respiratory: Denies: Dyspnea, Cough, Dyspnea on exertion Gastrointestinal: Reports: Abdominal pain, Nausea, Vomiting, Diarrhea. Denies: Melena, Hematochezia Genitourinary: Denies: Dysuria, Hematuria, Frequency Musculoskeletal: Reports: Back pain. Denies: Neck pain, Extremity Pain Skin: Denies: Rash, Wounds Neurological: Denies: Headache, Weakness, Numbness Physical Exam Vital Signs/Narrative: Vital Signs Temp Pulse Resp BP Pulse Ox 04/11/20 18:01 98.6 F 93 17 150/111 H 97 Inital Vital Signs reviewed: Yes General: Well nourished, Well developed, No Acute Distress Head: Normocephalic, Atraumatic Eyes: Perrl, EOMI ENT: Moist mucous membranes, No rhinorrhea Neck: Supple, Nontender Cardiovascular: Regular rate, Regular rhythm, No murmurs Respiratory: No distress, CTA bilaterally, Chest nontender Abdomen: Soft, Nondistended, Normal bowel sounds, Tender - Severely tender right upper quadrant and epigastrium. Nontender left upper quadrant, lateral right flank, right lower quadrant., Guarding - Voluntary right upper quadrant, [place]'s sign. Negative for: Rebound tenderness Back: Nontender, Normal Inspection. Negative for: CVA tenderness Extremities: Nontender, No edema Skin: Normal color, No rash Neurological: Alert, Oriented x3, Cranial nerves II-XII grossly intact, Normal Strength, Normal Sensation Psychological: Tearful Diagnostic/Tx/Re-eval Impressions Gallbladder Ultrasound 04/11/20 18:20 IMPRESSION: Normal right upper quadrant ultrasound examination. Electronically Signed: Emil Dan MD at 20:37 EDT , Service support , Abdomen/Pelvis CT 04/11/20 21:02 IMPRESSION: No acute disease. Sensitivity limited without IV and oral contrast. Electronically Signed: Emil Dan MD at 22:36 EDT , Service support , 04/11/20 18:20 Gallbladder [US] Stat 04/11/20 21:02 CT Abd [Abdomen/Pelvis without Cont] [CT] Stat Laboratory Results 04/11/20 04/11/20 04/11/20 18:42 18:42 18:55 WBC 11.4 H RBC 4.60 Hgb 15.0 Hct 43.7 MCV 95.0 MCH 32.6 H MCHC 34.3 RDW Std Deviation 42.1 RDW Coeff of Sakina 12.0 Plt Count 262 MPV 11.1 Immature Gran % (Auto) 0.400 Neut % (Auto) 51.5 Lymph % (Auto) 38.5 [place] % (Auto) 5.9 Eos % (Auto) 2.9 Baso % (Auto) 0.8 Absolute Neuts (auto) 5.9 Absolute Lymphs (auto) 4.39 Nucleated RBC % 0 Sodium 143 Potassium 4.1 Chloride 111 H Carbon Dioxide 25.0 Anion Gap 7 BUN 12 Creatinine 0.86 Estim Creat Clear Calc 69.77 Est GFR (MDRD) Af Amer 92 Est GFR (MDRD) Non-Af 76 BUN/Creatinine Ratio 13.9 Glucose 83 Calcium 9.4 Total Bilirubin 0.30 AST 20 ALT 58 H Alkaline Phosphatase 84 Total Protein 7.6 Albumin 4.2 Globulin 3.4 Albumin/Globulin Ratio 1.2 Lipase 84 Urine Color Yellow Urine Clarity Clear Urine pH 7.0 Ur Specific [place] 1.015 Urine Protein Negative Urine Glucose (UA) Normal Urine Ketones Negative Urine Occult Blood Negative Urine Nitrite Negative Urine Bilirubin Negative Urine Urobilinogen Normal Ur Leukocyte Esterase 25 H Urine RBC 0 SEEN Urine WBC 0 SEEN Ur Squamous Epith Cells 0-5 SEEN Urine Bacteria 0 SEEN Urine Mucus 0 SEEN - Medical Decision Making As I was initially concerned about biliary pain, ultrasound of the gallbladder was obtained as well as relevant blood test. Aside from a very mild leukocytosis which is nonspecific, the rest of the testing as above is all normal including a gallbladder ultrasound. Patient was given morphine initially while we were getting these test results, and it helped, but then her pain came back. I gave her a GI cocktail, it did not help her abdominal pain at all so she was given another dose of morphine and I sent her for a CT of the abdomen and pelvis. I did so with no contrast and she has an allergy to IV contrast, and I thought it would be fine to leave it off. Result is normal. She is feeling better and keenly alert. My suspicion is that she could have a calculus cholecystitis, her labs being relatively normal with regards to her liver enzymes and her symptoms being controlled with medication, I do not think she needs to be admitted to the hospital at this time. I discussed all that with her, said that we certainly could admit her for intractable pain she was having trouble, however since tomorrow Tuesday nuclear medicine would not be available to perform a HIDA scan which I think is the next best test for her to get, which can be obtained as an outpatient if her symptoms are under control and she does not have any other acute changes, for which we advised returning to the emergency department. She is comfortable going home with a prescription for analgesics at this time, and sticking with a liquid diet such as Gatorade, water. We will follow-up with her PCP after the weekend. ED Disposition - Plan for ED Patient: Disposition: Home or Assisted Living Diagnosis: Right upper quadrant abdominal pain Instructions: ED Abdominal Pain Unkn Cause Fem Prescriptions: Dicyclomine HCl [Bentyl] 20 mg PO Q6H PRN #15 cap PRN Reason: abdominal pain Prescription Printed Oxycodone HCl/Acetaminophen [Percocet 5/325] 1 tab PO Q6H PRN PRN 3 Days #12 tab PRN Reason: Pain Prescription Printed Ondansetron [Zofran Odt] 8 mg PO Q8H PRN PRN #12 tab PRN Reason: Nausea Prescription Printed Referrals: Wayne Cote Chi, MD [Primary Care Provider] - 3-5 Days
[2020-04-11] MEDS: Ondansetron 4 MG/2 ML Vial IV (18:30)
[2020-04-11] MEDS: Morphine 4 MG/ML Syringe IV ×2 (18:30→22:48)
[2020-04-11 18:49] LABS: Absolute Lymphocyte Count 4.39 X10^3/uL (0.83-4.51); Absolute Neutrophil Count 5.9 X10^3/uL (2.0-7.7); Basophil# 0.09 X10^3/uL; Basophil% 0.8 % (0-1); Eosinophil# 0.33 X10^3/uL; Eosinophils% 2.9 % (0-5); Hematocrit 43.7 % (37-47); Lymphocyte # 4.39 X10^3/ul (4.0); Lymphocyte % 38.5 % (19-41); Mean Corp Hgb Conc 34.3 g/dL (32-36); Mean Corpuscular Hgb 32.6 pg (27.0-32.0); Mean Platelet Vol. 11.1 fl (6.2-12.0); Monocyte# 0.67 X10^3/uL; Monocyte% 5.9 % (0-10); NRBC Flagged by Analyzer 0 % (0-5); Neutrophil # 5.89 X10^3/uL (2.7-7.7); Neutrophil % 51.5 % (47-70); Platelet Count 262 K/mm3 (150-450); RBC Distribution Width SD 42.1 fl (35.1-43.9); White Blood Count 11.4 K/mm3 (4.4-11.0)
[2020-04-11] MEDS: 0.9% Normal Saline 1,000 ML 1000 ML IV (18:57)
[2020-04-11 19:03] LABS: Bacteria 0 SEEN /hpf (None Seen); Mucous, Urine 0 SEEN /hpf (<or=2+); Red Blood Cells-Urine 0 SEEN /hpf (0-5); White Blood Cells 0 SEEN /hpf (0-5)
[2020-04-11 19:08] LABS: Color, Urine Yellow (Yellow); Glucose, Dipstick Normal (Normal); Ketone-Dipstick Negative (Negative); Leukocyte Esterase-Dipstick 25 /ul (Negative); Nitrite-Dipstick Negative (Negative); Occult Blood-Urine Negative /ul (Negative); Protein-Dipstick Negative (Negative); Specific Gravity, Urine 1.015 (1.002-1.030); Urine Bilirubin Dipstick Negative (Negative); Urine Clarity Clear (Clear); Urine Urobilinogen Normal (Normal)
[2020-04-11 19:09] LABS: ALB/GLOB Ratio 1.2 RATIO (0.9-2.4); AST(SGOT) 20 U/L (15-37); Alanine Aminotransfer ALT/SGPT 58 U/L (13-56); Albumin, Serum 4.2 g/dL (3.2-5.0); Alkaline Phosphatase 84 U/L (45-117); Anion Gap 7 (5-15); BUN 12 mg/dL (7-18); BUN/Creat Ratio 13.9 RATIO (10-20); Calcium,Total 9.4 mg/dL (8.5-10.1); Chloride 111 mmol/L (98-107); Creatinine, Serum 0.86 mg/dL (0.55-1.02); EST Glomerular Filtration Rate 76 mL/min (>60); Est Glom Filt Rate - Afr Amer 92 mL/min (>60); Estimated Creatinine Clearance 69.77 ml/min; Globulin 3.4 g/dL (2.2-4.2); Glucose 83 mg/dL (74-106); Lipase 84 U/L (73-393); Potassium 4.1 mmol/L (3.5-5.1); Protein, Total 7.6 g/dL (6.4-8.2); Sodium Level 143 mmol/L (136-145)
[2020-04-11 19:28] LABS: Squamous Epithelial Cells - UA 0-5 SEEN /hpf (5-10)
--- NOTE | 2020-04-11 21:02 | CT_ITS ---
STUDY: CT ABDOMEN AND PELVIS WITHOUT CONTRAST REASON FOR EXAM: Female, 45 years old. RIGHT UPPER ABD PAIN, NAUSEA VOMITING SINCE YESTERDAY. RADIATION DOSAGE (If Supplied By Facility): CTDIvol = ( 8.70 ) mGy, DLP = ( 410.78 ) mGycm TECHNIQUE: Transaxial images were obtained from the dome of the diaphragm to the symphysis pubis without oral contrast, and without intravenous contrast. Sagittal and coronal images were reconstructed. Individualized dose optimization techniques were used for this CT. COMPARISON: Abdominal ultrasound 04/11/[address] abdomen and pelvis 12/10/2019 FINDINGS: The visualized lung bases are unremarkable. The visualized portions of the heart are within normal limits. Normal liver. Normal gallbladder and extrahepatic biliary system. Normal spleen. Normal pancreas. Normal bilateral adrenal glands. Normal right kidney. Normal left kidney. Normal visualized stomach. Normal small intestine. Normal colon. There are surgical clips in the region of the appendix consistent with a prior appendectomy. Normal abdominal aorta. Retroaortic left renal vein. Normal inferior vena cava. Normal retroperitoneum. Normal urinary bladder. Normal abdominal wall. Normal osseous structures. CT/Abdomen/Pelvis without Cont IMPRESSION: No acute disease. Sensitivity limited without IV and oral contrast. Electronically Signed: Emil Dan MD at 22:36 EDT , Service support ,
[2020-04-11 22:50] VITALS: BP 129/68; PULSE 74; RESP 16; O2SAT 98
[2020-04-12 00:06] VITALS: BP 147/98; PULSE 92; RESP 14; O2SAT 97
== END 2020-04-12 00:06 | disposition home or self-care (01) ==
PROVIDERS: Emergency Provider Emergency Medicine; PCP Family Medicine Geriatric Medicine
DX: R10.11 Right upper quadrant pain (principal); R10.13 Epigastric pain; R11.2 Nausea with vomiting, unspecified; R19.7 Diarrhea, unspecified; M54.9 Dorsalgia, unspecified; R53.81 Other malaise; Z87.891 Personal history of nicotine dependence
CPT/HCPCS: 74176; 76705; 80053; 81001; 83690; 85025; 96361; 96374; 96375; 96376; 99283; J7030; A4216; J2405

== ENCOUNTER 2020-05-14 14:16 | Outpatient (RCR) | payer MEDICAID, SELFPAY | END 2020-05-28 23:59 | LOC: EMPH 14:16 | PROVIDERS: PCP Family Medicine Geriatric Medicine; Visit Provider Family Medicine Geriatric Medicine | DX: Z11.59 Encounter for screening for other viral diseases (principal) | CPT/HCPCS: 87635; U0003 ==

== ENCOUNTER → 2020-06-23 14:32 | Outpatient (CLI) | payer MEDICAID, SELFPAY ==
--- NOTE | 2020-06-23 14:34 | RAD_ITS ---
HISTORY: FALL ADDITIONAL HISTORY: None provided. EXAMINATION/TECHNIQUE: XR Shoulder Min 2 Views Right Number of images including paperwork: 4 COMPARISON: Chest 02/13/2020 FINDINGS: BONES: No acute fracture. JOINTS: No subluxation. SOFT TISSUES: No distinct foreign body. RAD/Shoulder min 2 Views IMPRESSION: No acute osseous abnormality. at 0544 Reported and signed by: Carolina Akins MD Electronically Signed: Carolina Akins MD at 5:44 EDT Tel , Service support ,
--- NOTE | 2020-06-23 14:34 | RAD_ITS ---
HISTORY: FALL EXAMINATION/TECHNIQUE:XR AP pelvis and right hip 3 views total COMPARISON: CT abdomen and pelvis 04/11/2020 FINDINGS: No fracture, dislocation, or bony abnormality. The sacroiliac and hip joints appear preserved. As visualized, soft tissues are negative. RAD/HIP, UNI W/ Pelvis 2-3 Views IMPRESSION: Normal exam, AP pelvis and right hip. at 0637 Reported and signed by: Ran Avalos MD Electronically Signed: Ran Avalos, at 6:36 EDT Tel , Service support ,
--- NOTE | 2020-06-23 14:34 | RAD_ITS ---
HISTORY: FALL EXAMINATION/TECHNIQUE: XR Spine Lumbar: 2 views COMPARISON: CT abdomen and pelvis 04/11/2020 FINDINGS: The lumbar vertebra show normal height and alignment. No fracture or acute osseous abnormality. No suspicious bony lesion. Lumbar disc space heights are preserved. The posterior elements appear intact. No spondylolisthesis. The SI joints are preserved. Paravertebral soft tissues are unremarkable. RAD/Lumbar Spine 2 or 3 Views IMPRESSION: Normal exam, lumbar spine. at 0639 Reported and signed by: Ran Avalos MD Electronically Signed: Ran Avalos, at 6:38 EDT Tel , Service support ,
== END ==
PROVIDERS: PCP Family Medicine Geriatric Medicine; Referring Provider Family Medicine Geriatric Medicine; Visit Provider Family Medicine Geriatric Medicine
DX: Z03.818 Encounter for observation for suspected exposure to other biological agents ruled out (principal); M25.551 Pain in right hip; M54.5 Low back pain; M25.511 Pain in right shoulder
CPT/HCPCS: 72100; 73030; 73502; 87426

== ENCOUNTER 2020-06-26 13:09 | Outpatient (RCR) | payer MEDICAID, SELFPAY | END 2020-06-28 23:59 | LOC: EMPH 13:09 | PROVIDERS: PCP Family Medicine Geriatric Medicine; Referring Provider Family Medicine Geriatric Medicine; Visit Provider Family Medicine Geriatric Medicine | DX: Z03.818 Encounter for observation for suspected exposure to other biological agents ruled out (principal) | CPT/HCPCS: 87426 ==

== ENCOUNTER 2020-07-21 08:27 | Emergency (ER) | payer MEDICAID, SELFPAY ==
[2020-07-21 08:29] VITALS: PULSE 103; RESP 20; TEMP 36.2; O2SAT 99; BMI 30.1
--- NOTE | 2020-07-21 08:45 | CT_ITS ---
INDICATION: RLQ PAIN, NAUSEA -- SURG-ABLASION, C-SECTIONS, HERNIA REPAIR, APPY, LEFT OOPHRECTOMY EXAMINATION: CT ABDOMEN AND PELVIS WITHOUT CONTRAST - CT Abdomen And Pelvis W/O Contrast Injection TECHNIQUE: Helically acquired images were obtained of the abdomen and pelvis without oral or IV contrast. A radiation dose optimization technique was used for this scan. IV Contrast dosage and agent: None. Oral contrast: None. CLINICAL HISTORY: 45 years Female, RLQ PAIN, NAUSEA -- SURG-ABLASION, C-SECTIONS, HERNIA REPAIR, APPY, LEFT OOPHRECTOMY COMPARISON: Previous CT scan of the abdomen and pelvis obtained on 04/11/2020 TECHNIQUE: A CT scan of the abdomen and pelvis was performed without IV contrast contrast administration. Coronal and sagittal reconstruction images were reviewed. This exam was performed according to our departmental dose-optimization program, which includes automated exposure control, adjustment of the mA and/or kV according to patient size and/or use of iterative reconstruction technique. FINDINGS: The lung bases and the base of the heart are normal. The liver is normal.The spleen is normal.The adrenal glands are normal.The head, body, and tail of the pancreas are normal. The right and left kidneys were examined and appear to be normal. Both ureters appear to be normal, and no obstructive uropathy is identified. The abdominal aortal is normal along its course and distribution. No paraortic lymphadenopathy is seen. No abdominal masses or lesions are seen. The CT scan of the pelvis was then reviewed. The common iliac vessels, external iliac vessels, and common femoral vessels are normal along their course and distribution No pelvis masses or lesions are seen. No pericecal inflammatory reaction is seen. Bone scanning windows of the lumbar spine and pelvis were reviewed in the coronal and sagittal planes and appear to be normal. CT/Abdomen/Pelvis without Cont IMPRESSION: Normal CT scan of the abdomen and pelvis. Electronically Signed: Evangelist Lozano, at 9:32 EST Tel , Service support ,
--- NOTE | 2020-07-21 08:45 | ED.DCSUM_ITS ---
History of Present Illness Chief Complaint: Abd Pain Informant: Patient Narrative: 45-year-old female presenting to the emergency department with right lower quadrant pain. Patient states that she felt fine yesterday. She states shortly before arrival she began to have nauseous feeling. Then severe pain in the right lower quadrant. Nonradiating. She denies history of kidney stones but does note a history of ovarian cyst. Normal bowel movement today. No fevers. She denies any urinary symptoms. Past Medical History - Allergies and Home Meds Allergies/Adverse Reactions: Allergies amoxicillin trihydrate [From Augmentin] Allergy (Verified 07/21/20 08:30) Hives Gadolinium-MRI Contrast Medium [DYE] Allergy (Verified 07/21/20 08:30) Swelling ibuprofen Allergy (Verified 07/21/20 08:30) Hives Iodinated Contrast Media [DYEE] Allergy (Verified 07/21/20 08:30) Swelling ketorolac [From Toradol] Allergy (Verified 07/21/20 08:30) Hives nitrofurantoin macrocrystalline [From Macrodantin] Allergy (Verified 07/21/20 08:30) Hives NSAIDS (Non-Steroidal Anti-Inflamma Allergy (Verified 07/21/20 08:30) Hives phenazopyridine [From Pyridium] Allergy (Verified 07/21/20 08:30) Hives potassium clavulanate [From Augmentin] Allergy (Verified 07/21/20 08:30) Hives sulfamethoxazole [From Bactrim] Allergy (Verified 07/21/20 08:30) Hives trimethoprim [From Bactrim] Allergy (Verified 07/21/20 08:30) Hives STERI-STRIPS Allergy (Uncoded 07/21/20 08:30) Other Primary Care Physician: Wayne Cote Chi, MD [Primary Care Provider] - Surgical History: appendectomy, hysterectomy, - - Smoking Status: Never smoker Drugs: None Review of Systems General: Denies: Chills, Fever, Sweats Eyes: Denies: Visual changes - bilaterally, Diplopia ENT: Denies: Rhinorrhea, Sore throat Cardiovascular: Denies: Chest pain, Palpitations Respiratory: Denies: Dyspnea, Cough, Dyspnea on exertion Gastrointestinal: Reports: Abdominal pain, Nausea. Denies: Vomiting, Diarrhea, Melena, Hematochezia Genitourinary: Denies: Dysuria, Hematuria, Frequency Musculoskeletal: Denies: Back pain, Extremity Pain Skin: Denies: Rash, Wounds Neurological: Denies: Headache, Weakness, Numbness Physical Exam Vital Signs/Narrative: Vital Signs Temp Pulse Resp Pulse Ox 07/21/20 08:29 97.1 F L 103 H 20 H 99 General: Well nourished, Well developed, No Acute Distress, - - Tearful Head: Normocephalic, Atraumatic Eyes: Perrl, EOMI ENT: Moist mucous membranes, No rhinorrhea Neck: Supple, Nontender Cardiovascular: Regular rate, Regular rhythm, No murmurs Respiratory: No distress, CTA bilaterally, Chest nontender Abdomen: Soft, Nondistended, Normal bowel sounds, Tender, Guarding Back: Nontender, Normal Inspection Extremities: Nontender, No edema Skin: Normal color, No rash Neurological: Alert, Oriented x3, Cranial nerves II-XII grossly intact, Normal Strength, Normal Sensation Psychological: Tearful Diagnostic/Tx/Re-eval Clinical Impression(s) from Imaging Studies Abdomen/Pelvis CT 07/21/20 08:45 IMPRESSION: Normal CT scan of the abdomen and pelvis. Electronically Signed: Evangelist Lozano, at 9:32 EST Tel , Service support , Laboratory Last Values WBC 9.0 K/mm3 (4.4-11.0) 07/21/20 08:37 RBC 4.85 M/mm3 (4.2-5.4) 07/21/20 08:37 Hgb 15.4 g/dL (12.0-15.0) H 07/21/20 08:37 Hct 46.9 % (37-47) 07/21/20 08:37 MCV 96.7 fL (81-99) 07/21/20 08:37 MCH 31.8 pg (27.0-32.0) 07/21/20 08:37 MCHC 32.8 g/dL (32-36) 07/21/20 08:37 RDW Std Deviation 46.0 fl (35.1-43.9) H 07/21/20 08:37 RDW Coeff of Sakina 12.7 % (11.6-14.6) 07/21/20 08:37 Plt Count 305 K/mm3 (150-450) 07/21/20 08:37 MPV 10.9 fl (6.2-12.0) 07/21/20 08:37 Immature Gran % (Auto) 0.300 % (0.0-0.9) 07/21/20 08:37 Neut % (Auto) 49.5 % (47-70) 07/21/20 08:37 Lymph % (Auto) 38.2 % (19-41) 07/21/20 08:37 [place] % (Auto) 7.7 % (0-10) 07/21/20 08:37 Eos % (Auto) 3.5 % (0-5) 07/21/20 08:37 Baso % (Auto) 0.8 % (0-1) 07/21/20 08:37 Absolute Neuts (auto) 4.5 X10^3/uL (2.0-7.7) 07/21/20 08:37 Absolute Lymphs (auto) 3.43 X10^3/uL (0.83-4.51) 07/21/20 08:37 Nucleated RBC % 0 % (0-5) 07/21/20 08:37 Sodium 140 mmol/L (136-145) 07/21/20 08:37 Potassium 4.1 mmol/L (3.5-5.1) 07/21/20 08:37 Chloride 110 mmol/L (98-107) H 07/21/20 08:37 Carbon Dioxide 23.0 mmol/L (21.0-32.0) 07/21/20 08:37 Anion Gap 7 (5-15) 07/21/20 08:37 BUN 13 mg/dL (7-18) 07/21/20 08:37 Creatinine 0.86 mg/dL (0.55-1.02) 07/21/20 08:37 Estim Creat Clear Calc 69.77 ml/min 07/21/20 08:37 Est GFR (MDRD) Af Amer 93 mL/min (>60) 07/21/20 08:37 Est GFR (MDRD) Non-Af 77 mL/min (>60) 07/21/20 08:37 BUN/Creatinine Ratio 15.2 RATIO (10-20) 07/21/20 08:37 Glucose 85 mg/dL (74-106) 07/21/20 08:37 Calcium 9.7 mg/dL (8.5-10.1) 07/21/20 08:37 Urine Color Yellow (Yellow) 07/21/20 08:52 Urine Clarity Clear (Clear) 07/21/20 08:52 Urine pH 5.0 (5.0 - 8.0) 07/21/20 08:52 Ur Specific [place] 1.025 (1.002-1.030) 07/21/20 08:52 Urine Protein 15 mg/dl (Negative) H 07/21/20 08:52 Urine Glucose (UA) Normal mg/dl (Normal) 07/21/20 08:52 Urine Ketones 5 mg/dl (Negative) H 07/21/20 08:52 Urine Occult Blood Negative /ul (Negative) 07/21/20 08:52 Urine Nitrite Negative (Negative) 07/21/20 08:52 Urine Bilirubin Negative mg/dL (Negative) 07/21/20 08:52 Urine Urobilinogen Normal mg/dl (Normal) 07/21/20 08:52 Ur Leukocyte Esterase 25 /ul (Negative) H 07/21/20 08:52 Urine RBC 0 SEEN /hpf (0-5) 07/21/20 08:52 Urine WBC 0-5 SEEN /hpf (0-5) 07/21/20 08:52 Ur Squamous Epith Cells 0-5 SEEN /hpf (5-10) 07/21/20 08:52 Urine Bacteria 1+ /hpf (None Seen) 07/21/20 08:52 Urine Mucus 2+ /hpf (<or=2+) 07/21/20 08:52 - Medical Decision Making IV established and the patient received morphine and Zofran. Basic blood work showed a normal white blood cell count. Urinalysis shows no overt infection or obvious hematuria. CT of the pelvis did not demonstrate anything to explain her pain. At this point discussed the results with the patient. I have asked that if she continues to have pain in 24 hours and she had repeat examination either by the emergency department or her primary care physician. I will write for a short course of pain medication. ED Disposition - Plan for ED Patient: Disposition: Home or Assisted Living Diagnosis: Acute abdominal pain Instructions: ED Abdominal Pain Unkn Cause Fem Prescriptions: Oxycodone HCl/Acetaminophen [Percocet 5/325] 1 tab PO Q6H PRN PRN 3 Days #12 tab PRN Reason: Pain Prescription Printed Ondansetron [Zofran Odt] 4 mg PO Q6H PRN PRN #10 tab PRN Reason: Nausea Prescription Printed Referrals: Wayne Cote Chi, MD [Primary Care Provider] - 1 Day (if continued symptoms)
[2020-07-21 08:52] LABS: Absolute Lymphocyte Count 3.43 X10^3/uL (0.83-4.51); Absolute Neutrophil Count 4.5 X10^3/uL (2.0-7.7); Basophil# 0.07 X10^3/uL; Basophil% 0.8 % (0-1); Eosinophil# 0.31 X10^3/uL; Eosinophils% 3.5 % (0-5); Hematocrit 46.9 % (37-47); Hemoglobin 15.4 g/dL (12.0-15.0); Lymphocyte # 3.43 X10^3/ul (4.0); Lymphocyte % 38.2 % (19-41); Mean Corp Hgb Conc 32.8 g/dL (32-36); Mean Corpuscular Hgb 31.8 pg (27.0-32.0); Mean Corpuscular Volume 96.7 fL (81-99); Mean Platelet Vol. 10.9 fl (6.2-12.0); Monocyte# 0.69 X10^3/uL; Monocyte% 7.7 % (0-10); NRBC Flagged by Analyzer 0 % (0-5); Neutrophil # 4.45 X10^3/uL (2.7-7.7); Neutrophil % 49.5 % (47-70); Platelet Count 305 K/mm3 (150-450); RBC Distribution Width CV 12.7 % (11.6-14.6); Red Blood Count 4.85 M/mm3 (4.2-5.4)
[2020-07-21 08:58] LABS: Red Blood Cells-Urine 0 SEEN /hpf (0-5)
[2020-07-21] MEDS: Morphine 4 MG/ML Syringe IV (08:59)
[2020-07-21] MEDS: Ondansetron 4 MG/2 ML Vial IV (08:59)
[2020-07-21 09:00] LABS: Color, Urine Yellow (Yellow); Glucose, Dipstick Normal (Normal); Ketone-Dipstick 5 mg/dl (Negative); Leukocyte Esterase-Dipstick 25 /ul (Negative); Nitrite-Dipstick Negative (Negative); Occult Blood-Urine Negative /ul (Negative); Protein-Dipstick 15 mg/dl (Negative); Specific Gravity, Urine 1.025 (1.002-1.030); Urine Bilirubin Dipstick Negative (Negative); Urine Clarity Clear (Clear); Urine Urobilinogen Normal (Normal)
[2020-07-21 09:09] LABS: Bacteria 1+ /hpf (None Seen); Mucous, Urine 2+ /hpf (<or=2+); Squamous Epithelial Cells - UA 0-5 SEEN /hpf (5-10); White Blood Cells 0-5 SEEN /hpf (0-5)
[2020-07-21 09:15] LABS: Anion Gap 7 (5-15); BUN 13 mg/dL (7-18); BUN/Creat Ratio 15.2 RATIO (10-20); Calcium,Total 9.7 mg/dL (8.5-10.1); Chloride 110 mmol/L (98-107); Creatinine, Serum 0.86 mg/dL (0.55-1.02); EST Glomerular Filtration Rate 77 mL/min (>60); Est Glom Filt Rate - Afr Amer 93 mL/min (>60); Estimated Creatinine Clearance 69.77 ml/min; Glucose 85 mg/dL (74-106); Potassium 4.1 mmol/L (3.5-5.1); Sodium Level 140 mmol/L (136-145)
[2020-07-21 10:14] VITALS: BP 124/77; PULSE 68; RESP 15; O2SAT 99
== END 2020-07-21 10:20 | disposition home or self-care (01) ==
PROVIDERS: Emergency Provider Emergency Medicine; PCP Family Medicine Geriatric Medicine
DX: R10.31 Right lower quadrant pain (principal); Z03.818 Encounter for observation for suspected exposure to other biological agents ruled out; R11.0 Nausea
CPT/HCPCS: 74176; 80048; 81001; 85025; 87426; 96374; 96375; 99283; A4216; J2405

== ENCOUNTER → 2020-07-23 11:20 | Outpatient (CLI) | payer MEDICAID, SELFPAY ==
[2020-07-21 08:29] VITALS: BMI 30.1
[2020-07-23 13:11] LABS: Absolute Lymphocyte Count 3.27 X10^3/uL (0.83-4.51); Basophil# 0.07 X10^3/uL; Basophil% 0.8 % (0-1); Eosinophil# 0.19 X10^3/uL; Eosinophils% 2.3 % (0-5); Hematocrit 48.5 % (37-47); Hemoglobin 15.7 g/dL (12.0-15.0); Lymphocyte # 3.27 X10^3/ul (4.0); Lymphocyte % 39.1 % (19-41); Mean Corp Hgb Conc 32.4 g/dL (32-36); Mean Corpuscular Hgb 32.4 pg (27.0-32.0); Mean Platelet Vol. 11.7 fl (6.2-12.0); Monocyte# 0.76 X10^3/uL; Monocyte% 9.1 % (0-10); NRBC Flagged by Analyzer 0 % (0-5); Neutrophil # 4.04 X10^3/uL (2.7-7.7); Neutrophil % 48.3 % (47-70); Platelet Count 288 K/mm3 (150-450); RBC Distribution Width CV 12.8 % (11.6-14.6); RBC Distribution Width SD 47.2 fl (35.1-43.9); Red Blood Count 4.85 M/mm3 (4.2-5.4); White Blood Count 8.4 K/mm3 (4.4-11.0)
[2020-07-23 13:36] LABS: ALB/GLOB Ratio 1.2 RATIO (0.9-2.4); AST(SGOT) 20 U/L (15-37); Alanine Aminotransfer ALT/SGPT 44 U/L (13-56); Albumin, Serum 4.1 g/dL (3.2-5.0); Alkaline Phosphatase 91 U/L (45-117); Anion Gap 3 (5-15); BUN 10 mg/dL (7-18); BUN/Creat Ratio 10.5 RATIO (10-20); Calcium,Total 9.3 mg/dL (8.5-10.1); Chloride 109 mmol/L (98-107); Creatinine, Serum 0.96 mg/dL (0.55-1.02); EST Glomerular Filtration Rate 68 mL/min (>60); Est Glom Filt Rate - Afr Amer 82 mL/min (>60); Globulin 3.5 g/dL (2.2-4.2); Glucose 82 mg/dL (74-106); Potassium 4.2 mmol/L (3.5-5.1); Protein, Total 7.6 g/dL (6.4-8.2); Sodium Level 139 mmol/L (136-145); Thyroid Stim Hormone (TSH) 2.62 uIU/mL (0.358-3.74)
== END ==
PROVIDERS: PCP Family Medicine Geriatric Medicine; Visit Provider Family Medicine Geriatric Medicine
DX: Z03.818 Encounter for observation for suspected exposure to other biological agents ruled out (principal); R53.83 Other fatigue
CPT/HCPCS: 36415; 80053; 84443; 85025; 87426

== ENCOUNTER 2020-07-23 12:59 | Outpatient (RCR) | payer MEDICAID, SELFPAY | END 2020-07-28 23:59 | LOC: EMPH 12:59 | PROVIDERS: PCP Family Medicine Geriatric Medicine; Referring Provider Family Medicine Geriatric Medicine; Visit Provider Family Medicine Geriatric Medicine | DX: Z03.818 Encounter for observation for suspected exposure to other biological agents ruled out (principal) | CPT/HCPCS: 87426 ==

== ENCOUNTER 2020-08-02 13:21 | Emergency (ER) | payer OTHER, MEDICAID, SELFPAY ==
[2020-08-02 13:22] VITALS: BP 167/84; PULSE 109; RESP 18; TEMP 37.2; O2SAT 100; BMI 31.1
[2020-08-02 13:44] VITALS: O2SAT 97
--- NOTE | 2020-08-02 13:54 | RAD_ITS ---
STUDY: X-RAY CHEST REASON FOR EXAM: Female, 45 years old. SHORT OF BREATH, WEAKNESS, COVID SX TECHNIQUE: AP upright portable view. COMPARISON: 02/13/2020. FINDINGS: The lungs are clear and expanded. There is no demonstrated pleural abnormality. Normal size heart. Normal mediastinum and alan. Normal visualized pulmonary arteries. Normal visualized aortic arch and descending thoracic aorta. Normal visualized thoracic spine. Normal visualized ribs, clavicles, and shoulders. There is no demonstrated abnormality of the visualized soft tissue structures of the upper abdomen. RAD/Chest 1 View (Portable) IMPRESSION: Normal x-ray examination of the chest and unchanged when compared to 02/13/2020. Electronically Signed: Will Ford MD at 15:27 EST , Service support ,
--- NOTE | 2020-08-02 13:54 | EKG12_ITS ---
Test Reason : SOB Blood Pressure : / mmHG Vent. Rate : 089 BPM Atrial Rate : 089 BPM P-R Int : 158 ms QRS Dur : 078 ms QT Int : 344 ms P-R-T Axes : 059 058 027 degrees QTc Int : 418 ms Normal sinus rhythm Normal ECG Confirmed by RAYNA MELGAR, OPAL ([id number]), fan mail editor ROSI ALFORD ([id number]) on 08/04/2020 1:30:59 PM Referred By: Confirmed By:OPAL WAY MD
[2020-08-02] MEDS: Ondansetron 4 MG/2 ML Vial IV (14:16)
[2020-08-02] MEDS: Morphine 4 MG/ML Syringe IV (14:16)
[2020-08-02] MEDS: 0.9% Normal Saline 1,000 ML 1000 ML IV (14:17)
[2020-08-02 14:33] LABS: Absolute Lymphocyte Count 3.76 X10^3/uL (0.83-4.51); Absolute Neutrophil Count 4.9 X10^3/uL (2.0-7.7); Basophil# 0.04 X10^3/uL; Basophil% 0.4 % (0-1); Eosinophils% 2.1 % (0-5); Hematocrit 49.4 % (37-47); Hemoglobin 16.3 g/dL (12.0-15.0); Lymphocyte # 3.76 X10^3/ul (4.0); Lymphocyte % 39.5 % (19-41); Mean Corpuscular Hgb 32.8 pg (27.0-32.0); Mean Corpuscular Volume 99.4 fL (81-99); Mean Platelet Vol. 11.3 fl (6.2-12.0); Monocyte# 0.58 X10^3/uL; Monocyte% 6.1 % (0-10); NRBC Flagged by Analyzer 0 % (0-5); Neutrophil % 51.5 % (47-70); Platelet Count 266 K/mm3 (150-450); RBC Distribution Width CV 12.7 % (11.6-14.6); RBC Distribution Width SD 45.9 fl (35.1-43.9); Red Blood Count 4.97 M/mm3 (4.2-5.4); White Blood Count 9.5 K/mm3 (4.4-11.0)
[2020-08-02 14:42] LABS: D-Dimer Quantitative (DVT/PE) 0.43 FEU/ug/m (0.27-0.49)
[2020-08-02 14:51] LABS: ALB/GLOB Ratio 1.1 RATIO (0.9-2.4); AST(SGOT) 16 U/L (15-37); Alanine Aminotransfer ALT/SGPT 43 U/L (13-56); Albumin, Serum 4.2 g/dL (3.2-5.0); Alkaline Phosphatase 91 U/L (45-117); Anion Gap 5 (5-15); BUN 13 mg/dL (7-18); BUN/Creat Ratio 15.8 RATIO (10-20); Calcium,Total 9.7 mg/dL (8.5-10.1); Chloride 111 mmol/L (98-107); Creatinine, Serum 0.82 mg/dL (0.55-1.02); EST Glomerular Filtration Rate 81 mL/min (>60); Est Glom Filt Rate - Afr Amer 98 mL/min (>60); Estimated Creatinine Clearance 73.18 ml/min; Globulin 3.9 g/dL (2.2-4.2); Glucose 83 mg/dL (74-106); Potassium 3.8 mmol/L (3.5-5.1); Protein, Total 8.1 g/dL (6.4-8.2); Sodium Level 141 mmol/L (136-145)
--- NOTE | 2020-08-02 14:51 | ED.VISSUMM ---
- ER Visit Summary Date of Service: 08/02/20 Chief Complaint: Myalgias History of Present Illness: The patient is a 45 F presenting with myalgias. Patient states that she has had temperature up to 100.1, chills. She has had sore throat. She has had shortness of breath and cough. She has had nausea without vomiting. She denies diarrhea. She has diffuse myalgias. She has a headache. She has tried Tylenol at home. She has had fatigue and decreased appetite. She works in [employer]. She states she was exposed to Covid on Tuesday. She was tested on and was negative. She woke up with worsening symptoms today. Physical Examination: Vitals are stable. Patient is afebrile. Alert no acute distress. HEENT exam is unremarkable. Neck is supple. No meningismus Lungs are clear and equal bilaterally. Heart is regular tachycardic Abdomen is soft nontender nondistended. Extremities are unremarkable. Skin is warm and dry. No focal neurologic deficit. Remainder of exam is unremarkable. Emergency Department Course and Treatment: EKG is sinus rhythm rate of 89 with no acute ischemic changes. CBC, chemistries unremarkable. D-dimer negative. Troponin negative. Covid negative. Chest x-ray shows Normal x-ray examination of the chest and unchanged when compared to 02/13/2020. Rapid strep is pending and will be checked out to the oncoming physician. Disposition: pending Impression: Viral illness This note was generated with [employer] dictation software. It may contain incorrect words, spelling, and punctuation that were not noted in review of the chart prior to signing ED Disposition - Plan for ED Patient: Referrals: Wayne Cote Chi, MD [Primary Care Provider] -
[2020-08-02] MEDS: proMETHazine 25 MG Tablet PO (16:15)
--- NOTE | 2020-08-02 16:20 | ED.DEP ---
ED Disposition - Plan for ED Patient: Diagnosis: Pharyngitis Instructions: Coronavirus Disease 2019 (COVID-19): Overview, Coronavirus Disease 2019 (COVID-19): Prevention Prescriptions: Naproxen [Naprosyn] 500 mg PO BID PRN #20 tab Prescription Printed Referrals: Wayne Cote Chi, MD [Primary Care Provider] -
[2020-08-02 16:29] VITALS: BP 130/87; PULSE 68; RESP 16; O2SAT 99
== END 2020-08-02 16:31 | disposition home or self-care (01) ==
LOC: ED 14:24
PROVIDERS: Emergency Provider Emergency Medicine; PCP Family Medicine Geriatric Medicine
DX: B34.9 Viral infection, unspecified (principal); J02.9 Acute pharyngitis, unspecified; R06.00 Dyspnea, unspecified; R05 Cough; R11.0 Nausea; M79.10 Myalgia, unspecified site; R53.83 Other fatigue; R50.9 Fever, unspecified; R51.9 Headache, unspecified; Z72.0 Tobacco use
CPT/HCPCS: 71045; 80053; 84484; 85025; 85379; 87426; 87880; 93005; 96361; 96374; 96375; 99284; J7030; A4216; J2405

== ENCOUNTER → 2020-08-06 09:19 | Outpatient (CLI) | payer OTHER, MEDICAID, SELFPAY ==
[2020-07-21 08:29] VITALS: BMI 30.1
[2020-08-02 13:22] VITALS: BMI 31.1
--- NOTE | 2020-08-06 09:22 | US_ITS ---
STUDY: ABDOMINAL ULTRASOUND - RIGHT UPPER QUADRANT REASON FOR VISIT: Female, 45 years old FATTY LIVER TECHNIQUE: Ultrasound evaluation of the right upper quadrant was performed with real-time and static donnelly-scale imaging. TECHNICAL QUALITY: Adequate. COMPARISON: Comparison is made with prior sonogram dated 04/11/2020. FINDINGS: Liver: The liver measures 17.3 cm. There is increased echogenicity consistent with fatty infiltration. Focal fatty sparing in the gallbladder region. The bile ducts are within normal limits. There is hepatic color flow. The direction of portal flow is hepatopetal. There is no demonstrated mass lesion. Gallbladder: Normal distended gallbladder. The gallbladder wall measures 2.0 mm. There is a negative sonographic Cleveland''s sign. There is no pericholecystic fluid. There are no gallstones. Common Bile Duct (C.B.D.): The common bile duct measures 4.8 mm. Pancreas: Normal size of the head, body and tail of the pancreas. There is normal echogenicity of the pancreas. There is no demonstrated pancreatic mass or cyst. Right Kidney: Normal size of the right kidney. The right kidney measures 11.2 cm x 5.2 cm x 3.9 cm. Normal renal cortex. The right cortex measures 1.3 cm. There is no demonstrated renal mass or cyst. There is no right hydronephrosis. IMPRESSION: Fatty infiltration of the liver with focal fatty sparing in the prachi gallbladder region. Electronically Signed: Joe Rowena, at 8:40 EST , Service support , STUDY: ABDOMINAL ULTRASOUND - ELASTOGRAPHY REASON FOR VISIT: Female, 45 years old. Fatty infiltration of the liver. TECHNIQUE: Liver stiffness measurements were obtained on a [employer] 85 ultrasound machine using a CA 1-7 probe following the SRU guidelines. 3 measurements were obtained using a 2-D-SWE method. The IQR/M was 16% suggesting a quality data set. TECHNICAL QUALITY: Adequate. COMPARISON: None. FINDINGS: Liver: There is no demonstrated mass lesion. Fatty infiltration of the liver. Median liver stiffness measured 5.9 kPa. US/Elastography Parenchyma/Organ IMPRESSION: Liver stiffness measures 5.9 kPa compatible with F2-F3 Metavir score. In the absence of other known clinical signs, this rules out compensated advanced chronic liver disease. If there are known clinical signs, may need further tests for confirmation. Electronically Signed: Joe Guaman, at 8:48 EST , Service support ,
--- NOTE | 2020-08-06 09:27 | US_ITS ---
STUDY: ABDOMINAL ULTRASOUND - RIGHT UPPER QUADRANT REASON FOR VISIT: Female, 45 years old FATTY LIVER TECHNIQUE: Ultrasound evaluation of the right upper quadrant was performed with real-time and static donnelly-scale imaging. TECHNICAL QUALITY: Adequate. COMPARISON: Comparison is made with prior sonogram dated 04/11/2020. FINDINGS: Liver: The liver measures 17.3 cm. There is increased echogenicity consistent with fatty infiltration. Focal fatty sparing in the gallbladder region. The bile ducts are within normal limits. There is hepatic color flow. The direction of portal flow is hepatopetal. There is no demonstrated mass lesion. Gallbladder: Normal distended gallbladder. The gallbladder wall measures 2.0 mm. There is a negative sonographic Cleveland''s sign. There is no pericholecystic fluid. There are no gallstones. Common Bile Duct (C.B.D.): The common bile duct measures 4.8 mm. Pancreas: Normal size of the head, body and tail of the pancreas. There is normal echogenicity of the pancreas. There is no demonstrated pancreatic mass or cyst. Right Kidney: Normal size of the right kidney. The right kidney measures 11.2 cm x 5.2 cm x 3.9 cm. Normal renal cortex. The right cortex measures 1.3 cm. There is no demonstrated renal mass or cyst. There is no right hydronephrosis. IMPRESSION: Fatty infiltration of the liver with focal fatty sparing in the prachi gallbladder region. Electronically Signed: Joe Rowena, at 8:40 EST , Service support , STUDY: ABDOMINAL ULTRASOUND - ELASTOGRAPHY REASON FOR VISIT: Female, 45 years old. Fatty infiltration of the liver. TECHNIQUE: Liver stiffness measurements were obtained on a [employer] 85 ultrasound machine using a CA 1-7 probe following the SRU guidelines. 3 measurements were obtained using a 2-D-SWE method. The IQR/M was 16% suggesting a quality data set. TECHNICAL QUALITY: Adequate. COMPARISON: None. FINDINGS: Liver: There is no demonstrated mass lesion. Fatty infiltration of the liver. Median liver stiffness measured 5.9 kPa. US/Abdomen Limited IMPRESSION: Liver stiffness measures 5.9 kPa compatible with F2-F3 Metavir score. In the absence of other known clinical signs, this rules out compensated advanced chronic liver disease. If there are known clinical signs, may need further tests for confirmation. Electronically Signed: Joe Guaman, at 8:48 EST , Service support ,
== END ==
PROVIDERS: PCP Family Medicine Geriatric Medicine; Referring Provider Family Medicine Geriatric Medicine; Visit Provider Family Medicine Geriatric Medicine
DX: K76.0 Fatty (change of) liver, not elsewhere classified (principal)
CPT/HCPCS: 76705; 76981

== ENCOUNTER → 2020-08-07 16:29 | Outpatient (CLI) | payer OTHER, MEDICAID, SELFPAY ==
[2020-08-02 13:22] VITALS: BMI 31.1
== END ==
PROVIDERS: PCP Family Medicine Geriatric Medicine; Visit Provider Family Medicine Geriatric Medicine
DX: N39.0 Urinary tract infection, site not specified (principal)
CPT/HCPCS: 87086; 87088; 87186

== ENCOUNTER 2020-08-20 10:46 | Outpatient (RCR) | payer OTHER, MEDICAID, SELFPAY | END 2020-08-28 23:59 | LOC: EMPH 10:46 | PROVIDERS: PCP Family Medicine Geriatric Medicine; Referring Provider Family Medicine Geriatric Medicine; Visit Provider Family Medicine Geriatric Medicine | DX: Z03.818 Encounter for observation for suspected exposure to other biological agents ruled out (principal) | CPT/HCPCS: 87426 ==

== ENCOUNTER 2020-08-27 14:04 | Emergency (ER) | payer OTHER, MEDICAID, SELFPAY ==
[2020-08-27 14:05] VITALS: BP 154/102; PULSE 105; RESP 16; TEMP 36.1; O2SAT 100; BMI 32.1
[2020-08-27 14:09] VITALS: BP 138/98; PULSE 107; RESP 19; O2SAT 100
--- NOTE | 2020-08-27 14:20 | EKG12_ITS ---
Test Reason : CP Blood Pressure : / mmHG Vent. Rate : 098 BPM Atrial Rate : 098 BPM P-R Int : 152 ms QRS Dur : 074 ms QT Int : 338 ms P-R-T Axes : 051 067 035 degrees QTc Int : 431 ms Normal sinus rhythm Normal ECG Confirmed by KIMBERLY MELGAR, RAMON ([id number]), scientific publications editor DOUGLAS MCCRAY ([id number]) on 09/01/2020 9:28:53 AM Referred By: Confirmed By:SUGAR HARRIS MD
[2020-08-27] MEDS: HYDROcodone Bitartrate/Apap 5/325 Tablet PO (14:29)
[2020-08-27] MEDS: Ondansetron 4 MG/2 ML Vial IV (14:29)
[2020-08-27] MEDS: 0.9% Normal Saline 1,000 ML 1000 ML IV (14:29)
[2020-08-27 14:37] LABS: International Normalized Ratio 0.9; Partial Thromboplast Time 31.8 Seconds (24.1-36.2)
[2020-08-27 14:48] LABS: Absolute Lymphocyte Count 3.37 X10^3/uL (0.83-4.51); Absolute Neutrophil Count 3.8 X10^3/uL (2.0-7.7); Basophil# 0.04 X10^3/uL; Basophil% 0.5 % (0-1); Eosinophil# 0.18 X10^3/uL; Eosinophils% 2.2 % (0-5); Hematocrit 50.8 % (37-47); Hemoglobin 16.6 g/dL (12.0-15.0); Lymphocyte # 3.37 X10^3/ul (4.0); Lymphocyte % 41.6 % (19-41); Mean Corp Hgb Conc 32.7 g/dL (32-36); Mean Corpuscular Volume 97.9 fL (81-99); Mean Platelet Vol. 11.7 fl (6.2-12.0); Monocyte# 0.64 X10^3/uL; Monocyte% 7.9 % (0-10); NRBC Flagged by Analyzer 0 % (0-5); Neutrophil # 3.83 X10^3/uL (2.7-7.7); Neutrophil % 47.3 % (47-70); Platelet Count 196 K/mm3 (150-450); RBC Distribution Width CV 12.7 % (11.6-14.6); RBC Distribution Width SD 45.9 fl (35.1-43.9); Red Blood Count 5.19 M/mm3 (4.2-5.4); White Blood Count 8.1 K/mm3 (4.4-11.0)
[2020-08-27 14:51] LABS: Lactic Acid 2.4 mmol/L (0.4-1.9)
[2020-08-27 14:52] LABS: ALB/GLOB Ratio 1.1 RATIO (0.9-2.4); AST(SGOT) 20 U/L (15-37); Alanine Aminotransfer ALT/SGPT 53 U/L (13-56); Albumin, Serum 3.9 g/dL (3.2-5.0); Alkaline Phosphatase 92 U/L (45-117); Anion Gap 7 (5-15); BUN 8 mg/dL (7-18); BUN/Creat Ratio 8.9 RATIO (10-20); Chloride 108 mmol/L (98-107); EST Glomerular Filtration Rate 73 mL/min (>60); Est Glom Filt Rate - Afr Amer 88 mL/min (>60); Estimated Creatinine Clearance 66.67 ml/min; Globulin 3.7 g/dL (2.2-4.2); Glucose 105 mg/dL (74-106); Potassium 3.5 mmol/L (3.5-5.1); Protein, Total 7.6 g/dL (6.4-8.2); Sodium Level 139 mmol/L (136-145)
[2020-08-27 15:12] LABS: Mucous, Urine 0 SEEN /hpf (<or=2+); Red Blood Cells-Urine 0 SEEN /hpf (0-5); White Blood Cells 0 SEEN /hpf (0-5)
[2020-08-27 15:18] LABS: Color, Urine Yellow (Yellow); Glucose, Dipstick Normal (Normal); Ketone-Dipstick Negative (Negative); Leukocyte Esterase-Dipstick Negative /ul (Negative); Nitrite-Dipstick Negative (Negative); Occult Blood-Urine Negative /ul (Negative); Protein-Dipstick Negative (Negative); Urine Bilirubin Dipstick Negative (Negative); Urine Clarity Clear (Clear); Urine Urobilinogen Normal (Normal)
--- NOTE | 2020-08-27 15:20 | RAD_ITS ---
STUDY: X-RAY CHEST REASON FOR EXAM: Female, 45 years old. SUDDEN ONSET CHEST PAIN THAT STARTED APPROX 1 HOUR [employer]. TESTED COVID + ON 08/25. PAIN WITH URINATION TECHNIQUE: Single AP portable view of the chest. COMPARISON: None. FINDINGS: The lungs are clear and expanded. There is no demonstrated pleural abnormality. Normal size heart. Normal mediastinum and alan. Normal visualized pulmonary arteries. Normal visualized aortic arch and descending thoracic aorta. Normal visualized thoracic spine. Normal visualized ribs, clavicles, and shoulders. There is no demonstrated abnormality of the visualized soft tissue structures of the upper abdomen. RAD/Chest 1 View (Portable) IMPRESSION: Normal x-ray examination of the chest. Electronically Signed: Fredi Hedrick, at 15:36 EST Tel , Service support ,
[2020-08-27 15:21] LABS: Internal QC Validated? YES +Cl - CLEAR BKGD; Pregnancy, Urine Negative Negative
[2020-08-27 15:37] LABS: Bacteria RARE /hpf (None Seen); Squamous Epithelial Cells - UA 0-5 SEEN /hpf (5-10)
[2020-08-27 15:40] VITALS: BP 127/84; PULSE 93; RESP 18; O2SAT 100
--- NOTE | 2020-08-27 15:47 | ED.DCSUM_ITS ---
History of Present Illness Chief Complaint: Chest Pain Informant: Patient Narrative: 45-year-old female presents the emergency department with chest pain. She was recently diagnosed with COVID-19. She states her back is experiencing extreme pressure from the low back to her hips. She notes some dysuria. She notes a chest ache mostly on the right anterior aspect. She states that the chest pain is not worse with breathing. Nonproductive cough. She has been eating and drinking. Past Medical History - Allergies and Home Meds Allergies/Adverse Reactions: Allergies amoxicillin trihydrate [From Augmentin] Allergy (Verified 08/27/20 14:05) Hives ibuprofen Allergy (Verified 08/27/20 14:05) Hives Iodinated Contrast Media [DYEE] Allergy (Verified 08/27/20 14:05) Swelling ketorolac [From Toradol] Allergy (Verified 08/27/20 14:05) Hives nitrofurantoin macrocrystalline [From Macrodantin] Allergy (Verified 08/27/20 14:05) Hives NSAIDS (Non-Steroidal Anti-Inflamma Allergy (Verified 08/27/20 14:05) Hives phenazopyridine [From Pyridium] Allergy (Verified 08/27/20 14:05) Hives potassium clavulanate [From Augmentin] Allergy (Verified 08/27/20 14:05) Hives sulfamethoxazole [From Bactrim] Allergy (Verified 08/27/20 14:05) Hives trimethoprim [From Bactrim] Allergy (Verified 08/27/20 14:05) Hives STERI-STRIPS Allergy (Uncoded 08/27/20 14:05) Other Primary Care Physician: Wayne Cote Chi, MD [Primary Care Provider] - As Needed Past Medical History: - Surgical History: appendectomy, hysterectomy, - - Smoking Status: Current every day smoker Drugs: None - COVID-19 Review of Systems General: Reports: Chills, Fever, Malaise. Denies: Sweats Eyes: Denies: Visual changes - bilaterally, Diplopia ENT: Reports: - - Loss of taste and smell. Denies: Rhinorrhea, Sore throat Cardiovascular: Reports: Chest pain. Denies: Palpitations Respiratory: Denies: Dyspnea, Cough, Dyspnea on exertion Gastrointestinal: Reports: Nausea. Denies: Abdominal pain, Vomiting, Diarrhea, Melena, Hematochezia Genitourinary: Denies: Dysuria, Hematuria, Frequency Musculoskeletal: Reports: Myalgias, Back pain. Denies: Extremity Pain Skin: Denies: Rash, Wounds Neurological: Reports: Headache. Denies: Weakness, Numbness Physical Exam Vital Signs/Narrative: Vital Signs Temp Pulse Resp BP Pulse Ox 08/27/20 15:40 93 18 127/84 H 100 08/27/20 14:09 107 H 19 H 138/98 H 100 08/27/20 14:05 96.9 F L 105 H 16 154/102 H 100 Inital Vital Signs reviewed: Yes General: Well nourished, Well developed, No Acute Distress Head: Normocephalic, Atraumatic Eyes: Perrl, EOMI ENT: Moist mucous membranes, No rhinorrhea Neck: Supple, Nontender Cardiovascular: Regular rate, Regular rhythm, No murmurs Respiratory: No distress, CTA bilaterally, Chest nontender Abdomen: Soft, Nontender, Nondistended, Normal bowel sounds Back: - - Diffusely tender out of proportion to examination Extremities: Nontender, No edema Skin: Normal color, No rash Neurological: Alert, Oriented x3, Cranial nerves II-XII grossly intact, Normal Strength, Normal Sensation Psychological: Normal affect, Normal Mood Diagnostic/Tx/Re-eval Clinical Impression(s) from Imaging Studies Chest X-Ray 08/27/20 15:20 IMPRESSION: Normal x-ray examination of the chest. Electronically Signed: Fredi Hedrick at 15:36 EST Tel , Service support , Chest CTA 08/27/20 15:57 IMPRESSION: No demonstrated PE, or thoracic aortic aneurysm or dissection No acute pulmonary process No pleural or pericardial effusions Electronically Signed: Boyd Dave MD at 17:35 EST , Service support , Laboratory Last Values WBC 8.1 K/mm3 (4.4-11.0) 08/27/20 14:11 RBC 5.19 M/mm3 (4.2-5.4) 08/27/20 14:11 Hgb 16.6 g/dL (12.0-15.0) H 08/27/20 14:11 Hct 50.8 % (37-47) H 08/27/20 14:11 MCV 97.9 fL (81-99) 08/27/20 14:11 MCH 32.0 pg (27.0-32.0) 08/27/20 14:11 MCHC 32.7 g/dL (32-36) 08/27/20 14:11 RDW Std Deviation 45.9 fl (35.1-43.9) H 08/27/20 14:11 RDW Coeff of Sakina 12.7 % (11.6-14.6) 08/27/20 14:11 Plt Count 196 K/mm3 (150-450) 08/27/20 14:11 MPV 11.7 fl (6.2-12.0) 08/27/20 14:11 Immature Gran % (Auto) 0.500 % (0.0-0.9) 08/27/20 14:11 Neut % (Auto) 47.3 % (47-70) 08/27/20 14:11 Lymph % (Auto) 41.6 % (19-41) H 08/27/20 14:11 [place] % (Auto) 7.9 % (0-10) 08/27/20 14:11 Eos % (Auto) 2.2 % (0-5) 08/27/20 14:11 Baso % (Auto) 0.5 % (0-1) 08/27/20 14:11 Absolute Neuts (auto) 3.8 X10^3/uL (2.0-7.7) 08/27/20 14:11 Absolute Lymphs (auto) 3.37 X10^3/uL (0.83-4.51) 08/27/20 14:11 Nucleated RBC % 0 % (0-5) 08/27/20 14:11 PT 12.0 SECONDS (11.7-14.9) 08/27/20 14:11 INR 0.9 08/27/20 14:11 APTT 31.8 Seconds (24.1-36.2) 08/27/20 14:11 Sodium 139 mmol/L (136-145) 08/27/20 14:11 Potassium 3.5 mmol/L (3.5-5.1) 08/27/20 14:11 Chloride 108 mmol/L (98-107) H 08/27/20 14:11 Carbon Dioxide 24.0 mmol/L (21.0-32.0) 08/27/20 14:11 Anion Gap 7 (5-15) 08/27/20 14:11 BUN 8 mg/dL (7-18) 08/27/20 14:11 Creatinine 0.90 mg/dL (0.55-1.02) 08/27/20 14:11 Estim Creat Clear Calc 66.67 ml/min 08/27/20 14:11 Est GFR (MDRD) Af Amer 88 mL/min (>60) 08/27/20 14:11 Est GFR (MDRD) Non-Af 73 mL/min (>60) 08/27/20 14:11 BUN/Creatinine Ratio 8.9 RATIO (10-20) L 08/27/20 14:11 Glucose 105 mg/dL (74-106) 08/27/20 14:11 Lactic Acid 2.4 mmol/L (0.4-1.9) H* 08/27/20 14:11 Calcium 9.0 mg/dL (8.5-10.1) 08/27/20 14:11 Total Bilirubin 0.30 mg/dL (0.20-1.00) 08/27/20 14:11 AST 20 U/L (15-37) 08/27/20 14:11 ALT 53 U/L (13-56) 08/27/20 14:11 Alkaline Phosphatase 92 U/L (45-117) 08/27/20 14:11 Troponin I < 0.015 ng/mL (<0.045) 08/27/20 14:11 Total Protein 7.6 g/dL (6.4-8.2) 08/27/20 14:11 Albumin 3.9 g/dL (3.2-5.0) 08/27/20 14:11 Globulin 3.7 g/dL (2.2-4.2) 08/27/20 14:11 Albumin/Globulin Ratio 1.1 RATIO (0.9-2.4) 08/27/20 14:11 Urine Color Yellow (Yellow) 08/27/20 14:57 Urine Clarity Clear (Clear) 08/27/20 14:57 Urine pH 6.0 (5.0 - 8.0) 08/27/20 14:57 Ur Specific [place] 1.010 (1.002-1.030) 08/27/20 14:57 Urine Protein Negative mg/dl (Negative) 08/27/20 14:57 Urine Glucose (UA) Normal mg/dl (Normal) 08/27/20 14:57 Urine Ketones Negative mg/dl (Negative) 08/27/20 14:57 Urine Occult Blood Negative /ul (Negative) 08/27/20 14:57 Urine Nitrite Negative (Negative) 08/27/20 14:57 Urine Bilirubin Negative mg/dL (Negative) 08/27/20 14:57 Urine Urobilinogen Normal mg/dl (Normal) 08/27/20 14:57 Ur Leukocyte Esterase Negative /ul (Negative) 08/27/20 14:57 Urine RBC 0 SEEN /hpf (0-5) 08/27/20 14:57 Urine WBC 0 SEEN /hpf (0-5) 08/27/20 14:57 Ur Squamous Epith Cells 0-5 SEEN /hpf (5-10) 08/27/20 14:57 Urine Bacteria RARE /hpf (None Seen) 08/27/20 14:57 Urine Mucus 0 SEEN /hpf (<or=2+) 08/27/20 14:57 - EKG Initial EKG Interpretation: Sinus Rhythm - EKG demonstrates a normal sinus rhythm at a rate of 98. - Medical Decision Making Chest x-ray shows no acute findings. Her EKG is a normal sinus rhythm. Basic blood work is negative except for lactic acid of 2.4. She certainly does not appear hypoxic or in a shock state. She received IV fluids and a Mclaughlin. I talked to her regarding evaluation for pulmonary embolism in light that she is COVID-19 positive. She has an IV dye allergy which she states is where her ears swell and the skin sloughed off. She states that she is willing to be pretreated to obtain a CTA to evaluate for pulmonary embolism. We talked about a D-dimer and in light that she is COVID-19 positive has a strong likelihood that this will be elevated. She preferred not to wait until that test comes back and then do the pretreatment as much as she would rather just do the pretreatment into the CT. Patient received Benadryl and Solu-Cortef. CTA of the chest is negative for pulmonary embolism or dissection. No obvious inflammatory changes associated with Covid were noted. No pleural effusions. At this point the patient has normal vital signs and essentially a normal work- up. The patient continues to have pain which is most likely associated with her myalgias of Covid. The patient has reported severe pain in the past when I evaluated her for abdominal pain with a negative work-up. I do not believe narcotics are indicated. Would recommend fluid hydration Tylenol. She has an NSAID allergy. I am going to start her on Decadron. ED Disposition - Plan for ED Patient: Disposition: Home or Assisted Living Diagnosis: Chest pain, Back pain, COVID-19 Instructions: Coronavirus Disease 2019 (COVID-19): Caring for Yourself or Others Prescriptions: Dexamethasone [Decadron] 6 mg PO DAILY 5 Days tab Prescription Printed Referrals: Wayne Cote Chi, MD [Primary Care Provider] - As Needed
--- NOTE | 2020-08-27 15:57 | CT_ITS ---
STUDY: CTA CHEST REASON FOR EXAM: Female, 45 years old. CP, COVID+ RADIATION DOSAGE (If Supplied By Facility): CTDIvol = ( 11.06 ) mGy, DLP = ( 453.10 ) mGycm TECHNIQUE: The examination was performed with the intravenous administration of IV 100mL Isovue-370. Post-processing of the angiographic images was performed, with multiplanar reformation and 3D reconstruction. Individualized dose optimization techniques were used for this CT. COMPARISON: Previous plain films FINDINGS: Normal enhancement of the main pulmonary artery and right and left pulmonary arteries. Normal enhancement of the bilateral peripheral pulmonary arteries. There is no demonstrated pulmonary embolism. Normal thoracic aorta and visualized great vessels. There is no demonstrated aortic dissection. Normal heart and pericardium. Normal mediastinum. Normal hilar regions. Normal visualized trachea and bronchi. The lungs are well expanded. Normal pulmonary parenchyma. Normal pleura. Normal chest wall structures. Normal osseous structures. Normal visualized upper abdomen. CT/CTA Chest W/WO Contrast IMPRESSION: No demonstrated PE, or thoracic aortic aneurysm or dissection No acute pulmonary process No pleural or pericardial effusions Electronically Signed: Boyd Dave MD at 17:35 EST , Service support ,
[2020-08-27] MEDS: DiphenhydrAMINE 50 MG/ML Syringe 25 MG IV (16:11)
[2020-08-27] MEDS: Hydrocortisone Sod Succinate 100 MG/2 ML Vial 200 MG IV (16:11)
[2020-08-27 16:14] VITALS: BP 115/81; PULSE 84; RESP 15; O2SAT 99
[2020-08-27 17:01] VITALS: BP 120/80; PULSE 84; RESP 14; TEMP 36.8; O2SAT 97
[2020-08-27 18:27] LABS: Reflex Lactate? Y
[2020-08-27 18:31] VITALS: BP 128/83; PULSE 88; RESP 16; O2SAT 96
== END 2020-08-27 18:34 | disposition home or self-care (01) ==
PROVIDERS: Emergency Provider Emergency Medicine; PCP Family Medicine Geriatric Medicine
DX: R07.89 Other chest pain (principal); M54.9 Dorsalgia, unspecified; U07.1 COVID-19; R05 Cough; R30.0 Dysuria; R43.8 Other disturbances of smell and taste; F17.200 Nicotine dependence, unspecified, uncomplicated
CPT/HCPCS: 71045; 71275; 80053; 81001; 81025; 83605; 84484; 85025; 85610; 85730; 93005; 96361; 96374; 96375; 99285; J7030; Q9967; A4216; J2405

== ENCOUNTER 2020-09-19 14:40 | Emergency (ER) | payer OTHER, SELFPAY ==
[2020-09-19 14:41] VITALS: BP 143/84; PULSE 94; RESP 17; TEMP 35.8; O2SAT 99; BMI 31.5
--- NOTE | 2020-09-19 14:57 | ED.VIS.GEN ---
History of Present Illness Chief Complaint: Back Informant: Patient Narrative: 45-year-old female presents with acute right back pain. 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 She was forcefully bent forward while attempting to stay upright. She notes a burning sensation in the right lumbar paraspinal musculature. No radicular symptoms. No history of IV drug use fevers or rashes or other red flags to suggest abscess/infection. Past Medical History - Allergies and Home Meds Allergies/Adverse Reactions: Allergies amoxicillin trihydrate [From Augmentin] Allergy (Verified 09/19/20 14:41) Hives ibuprofen Allergy (Verified 09/19/20 14:41) Hives Iodinated Contrast Media [DYEE] Allergy (Verified 09/19/20 14:41) Swelling ketorolac [From Toradol] Allergy (Verified 09/19/20 14:41) Hives nitrofurantoin macrocrystalline [From Macrodantin] Allergy (Verified 09/19/20 14:41) Hives NSAIDS (Non-Steroidal Anti-Inflamma Allergy (Verified 09/19/20 14:41) Hives phenazopyridine [From Pyridium] Allergy (Verified 09/19/20 14:41) Hives potassium clavulanate [From Augmentin] Allergy (Verified 09/19/20 14:41) Hives sulfamethoxazole [From Bactrim] Allergy (Verified 09/19/20 14:41) Hives trimethoprim [From Bactrim] Allergy (Verified 09/19/20 14:41) Hives STERI-STRIPS Allergy (Uncoded 08/27/20 14:05) Other Primary Care Physician: Wayne Cote Chi, MD [Primary Care Provider] - Surgical History: appendectomy, hysterectomy, - - Smoking Status: Current every day smoker Drugs: None Review of Systems General: Denies: Chills, Fever, Sweats Eyes: Denies: Visual changes - bilaterally, Diplopia ENT: Denies: Rhinorrhea, Sore throat Cardiovascular: Denies: Chest pain, Palpitations Respiratory: Denies: Dyspnea, Cough, Dyspnea on exertion Gastrointestinal: Denies: Abdominal pain, Nausea, Vomiting, Diarrhea, Melena, Hematochezia Genitourinary: Denies: Dysuria, Hematuria, Frequency Musculoskeletal: Reports: Back pain. Denies: Extremity Pain Skin: Denies: Rash, Wounds Neurological: Denies: Headache, Weakness, Numbness Physical Exam Vital Signs/Narrative: Vital Signs Temp Pulse Resp BP Pulse Ox 09/19/20 14:41 96.5 F L 94 17 143/84 H 99 Inital Vital Signs reviewed: Yes General: Well nourished, Well developed, No Acute Distress Head: Normocephalic, Atraumatic Eyes: Perrl, EOMI ENT: Moist mucous membranes, No rhinorrhea Neck: Supple, Nontender Cardiovascular: Regular rate, Regular rhythm, No murmurs Respiratory: No distress, CTA bilaterally, Chest nontender Abdomen: Soft, Nontender, Nondistended, Normal bowel sounds Back: - - Right lumbar paraspinal muscular tenderness to palpation. Extremities: Nontender, No edema Skin: Normal color, No rash Neurological: Alert, Oriented x3, Cranial nerves II-XII grossly intact, Normal Strength, Normal Sensation Psychological: Normal affect, Normal Mood Diagnostic/Tx/Re-eval - Medical Decision Making Patient is instructed to rest heat and I can write for Flexeril. Patient is allergic to anti-inflammatories. Patient to follow-up with Workmen's Comp. 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 ED Disposition - Plan for ED Patient: Disposition: Home or Assisted Living Diagnosis: Strain of lumbar paraspinal muscle Instructions: ED Back Sprain/Strain Prescriptions: cycloBENZAPRine HCl [Flexeril] 10 mg PO TID PRN #15 tab PRN Reason: Muscle Spasm Prescription Printed Referrals: [facility] [GROUP OF PHYSICIANS] - As soon as possible
[2020-09-19] MEDS: cycloBENZAPRine HCl 10 MG Tablet PO (15:24)
--- NOTE | 2020-09-19 15:41 | ED.RN ---
DISCHARGE INSTRUCTIONS GIVEN TO AND REVIEWED WITH PATIENT, PATIENT DENIES QUESTIONS OR CONCERNS AND VOICES UNDERSTANDING OF DISCHARGE INSTRUCTIONS. PT AMBULATES OUT OF ROOM WITHOUT DIFFICULTY.
== END 2020-09-19 15:41 | disposition home or self-care (01) ==
LOC: ED 15:17
PROVIDERS: Emergency Provider Emergency Medicine; PCP Family Medicine Geriatric Medicine
DX: S39.012A Strain of muscle, fascia and tendon of lower back, initial encounter (principal); X50.1XXA Overexertion from prolonged static or awkward postures, initial encounter; Y93.9 Activity, unspecified; Y92.9 Unspecified place or not applicable; F17.200 Nicotine dependence, unspecified, uncomplicated
CPT/HCPCS: 99283

== ENCOUNTER → 2020-11-18 14:07 | Outpatient (CLI) | payer OTHER, SELFPAY ==
[2020-09-22 14:27] VITALS: BMI 30.2
[2020-11-18 14:52] LABS: ALB/GLOB Ratio 1.1 RATIO (0.9-2.4); AST(SGOT) 24 U/L (15-37); Alanine Aminotransfer ALT/SGPT 64 U/L (13-56); Albumin, Serum 4.2 g/dL (3.2-5.0); Alkaline Phosphatase 102 U/L (45-117); Anion Gap 4 (5-15); BUN 10 mg/dL (7-18); Calcium,Total 9.6 mg/dL (8.5-10.1); Chloride 109 mmol/L (98-107); Creatinine, Serum 0.84 mg/dL (0.55-1.02); EST Glomerular Filtration Rate 79 mL/min (>60); Est Glom Filt Rate - Afr Amer 96 mL/min (>60); Globulin 3.7 g/dL (2.2-4.2); Glucose 97 mg/dL (74-106); Protein, Total 7.9 g/dL (6.4-8.2); Sodium Level 138 mmol/L (136-145)
== END ==
PROVIDERS: PCP Family Medicine Geriatric Medicine; Visit Provider Family Medicine Geriatric Medicine
DX: R74.8 Abnormal levels of other serum enzymes (principal)
CPT/HCPCS: 36415; 80053

== ENCOUNTER 2020-11-25 09:45 | Outpatient (RCR) | payer OTHER, SELFPAY ==
[2020-09-22 14:27] VITALS: BMI 30.2
== END 2020-11-26 23:59 ==
LOC: EMPH 09:45
PROVIDERS: PCP Family Medicine Geriatric Medicine; Visit Provider Family Medicine Geriatric Medicine
DX: Z03.818 Encounter for observation for suspected exposure to other biological agents ruled out (principal)
CPT/HCPCS: 87426

== ENCOUNTER → 2020-12-05 14:41 | Outpatient (CLI) | payer OTHER, SELFPAY ==
[2020-12-05 14:02] VITALS: BMI 30.5
[2020-12-05 17:09] LABS: Absolute Lymphocyte Count 3.97 X10^3/uL (0.83-4.51); Absolute Neutrophil Count 3.8 X10^3/uL (2.0-7.7); Basophil# 0.07 X10^3/uL; Basophil% 0.8 % (0-1); Eosinophil# 0.22 X10^3/uL; Eosinophils% 2.5 % (0-5); Hematocrit 43.9 % (37-47); Hemoglobin 14.3 g/dL (12.0-15.0); Lymphocyte # 3.97 X10^3/ul (4.0); Lymphocyte % 45.5 % (19-41); Mean Corp Hgb Conc 32.6 g/dL (32-36); Mean Corpuscular Hgb 31.9 pg (27.0-32.0); Mean Platelet Vol. 11.9 fl (6.2-12.0); Monocyte# 0.62 X10^3/uL; Monocyte% 7.1 % (0-10); NRBC Flagged by Analyzer 0 % (0-5); Neutrophil # 3.81 X10^3/uL (2.7-7.7); Neutrophil % 43.8 % (47-70); Platelet Count 283 K/mm3 (150-450); RBC Distribution Width CV 12.7 % (11.6-14.6); Red Blood Count 4.48 M/mm3 (4.2-5.4); White Blood Count 8.7 K/mm3 (4.4-11.0)
[2020-12-05 17:16] LABS: ALB/GLOB Ratio 1.1 RATIO (0.9-2.4); AST(SGOT) 24 U/L (15-37); Alanine Aminotransfer ALT/SGPT 52 U/L (13-56); Albumin, Serum 3.8 g/dL (3.2-5.0); Alkaline Phosphatase 84 U/L (45-117); Amylase 33 U/L (25-115); Anion Gap 4 (5-15); BUN 8 mg/dL (7-18); BUN/Creat Ratio 8.6 RATIO (10-20); CPK Total, Creatine Kinase 78 U/L (26-192); CRP 3.85 mg/L (0.0-3.0); Calcium,Total 9.2 mg/dL (8.5-10.1); Chloride 108 mmol/L (98-107); Creatinine, Serum 0.92 mg/dL (0.55-1.02); EST Glomerular Filtration Rate 70 mL/min (>60); Est Glom Filt Rate - Afr Amer 85 mL/min (>60); Globulin 3.5 g/dL (2.2-4.2); Glucose 68 mg/dL (74-106); Lipase 122 U/L (73-393); Protein, Total 7.3 g/dL (6.4-8.2); Rheumatoid Factor < 10.0 IU/mL (<15); Sodium Level 140 mmol/L (136-145); T4 Free Direct 0.72 ng/dL (0.76-1.46); Thyroid Stim Hormone (TSH) 1.98 uIU/mL (0.358-3.74)
[2020-12-05 17:17] LABS: Erythrocyte Sedimentation Rate 27 mm/hr (0-30)
== END ==
PROVIDERS: PCP Internal Medicine; Referring Provider Internal Medicine; Visit Provider Internal Medicine
DX: M19.90 Unspecified osteoarthritis, unspecified site (principal); Z13.29 Encounter for screening for other suspected endocrine disorder; R10.9 Unspecified abdominal pain; M79.10 Myalgia, unspecified site
CPT/HCPCS: 36415; 80053; 82150; 82550; 83690; 84439; 84443; 85025; 85652; 86140; 86431

== ENCOUNTER → 2020-12-06 08:49 | Outpatient (CLI) | payer OTHER, SELFPAY ==
[2020-12-05 14:02] VITALS: BMI 30.5
--- NOTE | 2020-12-06 08:50 | US_ITS ---
STUDY: ABDOMINAL ULTRASOUND - RIGHT UPPER QUADRANT REASON FOR VISIT: Female, 45 years old RUQ Pain TECHNIQUE: Ultrasound evaluation of the right upper quadrant was performed with real-time and static donnelly-scale imaging. TECHNICAL QUALITY: Adequate. COMPARISON: 08/06/2020 FINDINGS: Liver: The liver measures 17.8 cm. There is increased echogenicity consistent with fatty infiltration. The bile ducts are within normal limits. There is hepatic color flow. The direction of portal flow is hepatopetal. There is no demonstrated mass lesion. Gallbladder: Normal distended gallbladder. The gallbladder wall measures 2 mm. There is a negative sonographic [place]''s sign. There is no pericholecystic fluid. There are no gallstones. Common Bile Duct (C.B.D.): The common bile duct measures 4 mm. Pancreas: Normal size of the head, body and tail of the pancreas. There is normal echogenicity of the pancreas. There is no demonstrated pancreatic mass or cyst. Right Kidney: Normal size of the right kidney. The right kidney measures 11.3 cm. Normal renal cortex. The right cortex measures 1.3 cm. There is no demonstrated renal mass or cyst. There is no right hydronephrosis. US/Abdomen Limited IMPRESSION: Fatty infiltration of the liver. Electronically Signed: Lamont Villa MD at 10:24 EDT Tel , Service support ,
== END ==
PROVIDERS: PCP Internal Medicine; Referring Provider Internal Medicine; Visit Provider Internal Medicine
DX: R10.11 Right upper quadrant pain (principal)
CPT/HCPCS: 76705

== ENCOUNTER 2020-12-26 09:44 | Outpatient (RCR) | payer OTHER, SELFPAY ==
[2020-09-22 14:27] VITALS: BMI 30.2
== END 2020-12-26 23:59 ==
LOC: EMPH 09:44
PROVIDERS: PCP Family Medicine Geriatric Medicine; Visit Provider Family Medicine Geriatric Medicine
DX: Z03.818 Encounter for observation for suspected exposure to other biological agents ruled out (principal)
CPT/HCPCS: 87426

== ENCOUNTER 2021-01-01 19:35 | Emergency (ER) | payer OTHER, MEDICAID, SELFPAY ==
[2020-12-19 10:25] VITALS: BMI 30.2
[2021-01-01 19:36] VITALS: BP 163/87; PULSE 86; RESP 20; TEMP 37; O2SAT 100; BMI 30.4
--- NOTE | 2021-01-01 19:45 | EKG12_ITS ---
Test Reason : CP Blood Pressure : / mmHG Vent. Rate : 093 BPM Atrial Rate : 093 BPM P-R Int : 144 ms QRS Dur : 078 ms QT Int : 334 ms P-R-T Axes : 043 069 039 degrees QTc Int : 415 ms Normal sinus rhythm Normal ECG Confirmed by GASTON BAE MD ([id number]), editor greeting card DOUGLAS MCCRAY ([id number]) on 01/05/2021 12:42:20 PM Referred By: CLARA Confirmed By:GASTON BAE MD
--- NOTE | 2021-01-01 19:45 | CT_ITS ---
STUDY: CT BRAIN WITHOUT CONTRAST REASON FOR EXAM: Female, 45 years old. Headache RADIATION DOSAGE (If Supplied By Facility): CTDIvol = ( 44.99 ) mGy, DLP = ( 779.24 ) mGycm TECHNIQUE: Transaxial CT imaging of the brain was performed without administration of intravenous contrast material. Individualized dose optimization techniques were used for this CT. COMPARISON: 04/10/2018. FINDINGS: Normal soft tissue structures. Normal calvarium. Small hypoattenuated density in the medial left temporal lobe likely representing prominent perivascular space Normal size ventricles and extra-axial spaces for the patient''s age. Normal white matter tracts of the cerebral hemispheres. Normal basal ganglia and thalami. Normal brainstem. Normal cerebellum. There is no intracranial hemorrhage. There are no findings of an acute ischemic infarction. Mild mucosal thickening in the right posterior ethmoid air cells. No significant change since prior exam CT/Brain/Head without Contrast IMPRESSION: Probable perivascular space in the left medial temporal lobe.. No evidence for obstructive hydrocephalus mass or acute bleed. Electronically Signed: Juan Luis Church MD at 20:48 EDT , Service support ,
[2021-01-01 20:03] LABS: Absolute Lymphocyte Count 4.66 X10^3/uL (0.83-4.51); Absolute Neutrophil Count 6.2 X10^3/uL (2.0-7.7); Basophil# 0.08 X10^3/uL; Basophil% 0.7 % (0-1); Eosinophil# 0.12 X10^3/uL; Hematocrit 48.4 % (37-47); Hemoglobin 16.2 g/dL (12.0-15.0); Lymphocyte # 4.66 X10^3/ul (0.83-4.51); Lymphocyte % 39.6 % (19-41); Mean Corp Hgb Conc 33.5 g/dL (32-36); Mean Corpuscular Hgb 31.8 pg (27.0-32.0); Mean Corpuscular Volume 94.9 fL (81-99); Mean Platelet Vol. 11.7 fl (6.2-12.0); Monocyte# 0.68 X10^3/uL; Monocyte% 5.8 % (0-10); NRBC Flagged by Analyzer 0 % (0-5); Neutrophil # 6.16 X10^3/uL (2.7-7.7); Neutrophil % 52.4 % (47-70); Platelet Count 306 K/mm3 (150-450); RBC Distribution Width CV 12.4 % (11.6-14.6); RBC Distribution Width SD 43.3 fl (35.1-43.9); White Blood Count 11.8 K/mm3 (4.4-11.0)
[2021-01-01] MEDS: 0.9% Normal Saline 1,000 ML 1000 ML IV (20:12)
[2021-01-01] MEDS: Morphine 4 MG/ML Syringe IV (20:16)
[2021-01-01] MEDS: Ondansetron 4 MG/2 ML Vial IV (20:17)
[2021-01-01 20:29] LABS: ALB/GLOB Ratio 1.2 RATIO (0.9-2.4); AST(SGOT) 19 U/L (15-37); Alanine Aminotransfer ALT/SGPT 42 U/L (13-56); Albumin, Serum 4.4 g/dL (3.2-5.0); Alkaline Phosphatase 95 U/L (45-117); Anion Gap 10 (5-15); BUN 7 mg/dL (7-18); BUN/Creat Ratio 7.7 RATIO (10-20); Calcium,Total 9.7 mg/dL (8.5-10.1); Chloride 105 mmol/L (98-107); Creatinine, Serum 0.91 mg/dL (0.55-1.02); EST Glomerular Filtration Rate 71 mL/min (>60); Est Glom Filt Rate - Afr Amer 86 mL/min (>60); Estimated Creatinine Clearance 65.94 ml/min; Globulin 3.8 g/dL (2.2-4.2); Glucose 79 mg/dL (74-106); Potassium 3.2 mmol/L (3.5-5.1); Protein, Total 8.2 g/dL (6.4-8.2); Sodium Level 140 mmol/L (136-145)
--- NOTE | 2021-01-01 20:30 | RAD_ITS ---
STUDY: X-RAY CHEST REASON FOR EXAM: Female, 45 years old. Chest pain TECHNIQUE: AP portable COMPARISON: 08/27/2020 FINDINGS: The lungs are clear and expanded. There is no demonstrated pleural abnormality. Normal size heart. Normal mediastinum and alan. Normal visualized pulmonary arteries. Normal visualized aortic arch and descending thoracic aorta. Normal visualized thoracic spine. Normal visualized ribs, clavicles, and shoulders. There is no demonstrated abnormality of the visualized soft tissue structures of the upper abdomen. RAD/Chest 1 View (Portable) IMPRESSION: Normal x-ray examination of the chest. Electronically Signed: Juan Luis Church MD at 21:07 EDT , Service support ,
[2021-01-01 21:55] VITALS: BP 123/102; PULSE 79; RESP 16; O2SAT 94
[2021-01-01] MEDS: Ketorolac 15 MG/ML Vial IV (22:02)
[2021-01-01 22:05] VITALS: BP 125/75; PULSE 73; RESP 16; O2SAT 99
[2021-01-01] MEDS: Acetaminophen 500 MG Tablet 1000 MG PO (22:08)
--- NOTE | 2021-01-01 22:29 | EKG12_ITS ---
Test Reason : REPEAT Blood Pressure : / mmHG Vent. Rate : 068 BPM Atrial Rate : 068 BPM P-R Int : 172 ms QRS Dur : 080 ms QT Int : 404 ms P-R-T Axes : 061 070 046 degrees QTc Int : 429 ms Normal sinus rhythm Normal ECG Confirmed by GASTON BAE MD ([id number]), clinical editor DOUGLAS MCCRAY ([id number]) on 01/05/2021 12:42:34 PM Referred By: CLARA Confirmed By:GASTON BAE MD
[2021-01-01 23:11] VITALS: BP 113/67; PULSE 71; RESP 14; O2SAT 96
[2021-01-01 23:14] LABS: D-Dimer Quantitative (DVT/PE) 0.42 FEU/ug/m (0.27-0.49)
[2021-01-01 23:23] VITALS: BP 113/81; PULSE 78; RESP 19; O2SAT 96
--- NOTE | 2021-01-01 23:29 | EDS_ITS ---
HPI History of Present Illness Chief Complaint: Chest Pain Narrative Narrative: 45-year-old patient who sees Dr. Mayo. She reports she has chest pain that began abruptly 2 hours ago while she was making dinner. It is a continuous pressure that waxes and wanes. It is 9 out of 10 at worst and 7 out of 10 currently. She states that it is worsened by nothing including exertion or deep breaths. Is also relieved by nothing. She is been nauseated, but has not vomited. She does report that she been diaphoretic and a little short of breath. Patient reports that she has a sharp frontal headache that began abruptly at the same time 2 hours ago. Is 8 out of 10 severity. She does not have a history of similar headaches. [facility] Medical History (Updated 01/01/21 @ 23:[address] Pete Pfeiffer MD) Arthritis Back problem Fibromyalgia GI problem Headache, migraine History of pneumonia Liver disease Lupus Seasonal allergies Thyroid disease Home Medications acetaminophen 650 mg PO Q4H PRN 08/27/20 [History Last Taken Unknown] azithromycin 250 mg tablet 250 mg PO QDAY #12 tablet 12/17/20 [Rx Last Taken Unknown] omeprazole 40 mg capsule,delayed release 40 mg PO BID #90 cap 12/19/20 [Rx Last Taken Unknown] sertraline 100 mg tablet 100 mg PO DAILY #90 tablet 12/19/20 [Rx Last Taken Unknown] Allergy/AdvReac Type Severity Reaction Status Date / Time amoxicillin trihydrate Allergy Hives Verified 01/01/21 19:45 [From Augmentin] ibuprofen Allergy Hives Verified 01/01/21 19:45 Iodinated Contrast Media Allergy Swelling Verified 01/01/21 19:45 [DYEE] ketorolac [From Toradol] Allergy Hives Verified 01/01/21 19:45 nitrofurantoin Allergy Hives Verified 01/01/21 19:45 macrocrystalline [From Macrodantin] NSAIDS (Non-Steroidal Allergy Hives Verified 01/01/21 19:45 Anti-Inflamma phenazopyridine Allergy Hives Verified 01/01/21 19:45 [From Pyridium] potassium clavulanate Allergy Hives Verified 01/01/21 19:45 [From Augmentin] sulfamethoxazole Allergy Hives Verified 01/01/21 19:45 [From Bactrim] trimethoprim [From Bactrim] Allergy Hives Verified 01/01/21 19:45 STERI-STRIPS Allergy Other Uncoded 01/01/21 19:45 Family History Father Alcoholism CVA (cerebral vascular accident) Mother Cancer Melanoma Grandfather Cancer Grandmother Cancer Other Arthritis Autoimmune disorder Breast cancer Colon cancer Depression Heart disease Hypertension Liver disease Myocardial infarction Ovarian cancer Psychiatric care Thyroid disorder Uterine cancer ulcer disease Surgical History History of tonsillectomy Hx of section Hx of hernia repair Hx of hysterectomy Social History Smoking Status: Current every day smoker alcohol intake: never substance use type: does not use ROS ROS ED Constitutional Constitutional ED: Denies chills, fever(s) or sweats Eyes Eyes: Denies change in vision ENT ENT ED: Denies sore throat Cardiovascular Cardiovascular: Reports chest pain Respiratory/Chest Respiratory/Chest: Denies cough, dyspnea or dyspnea on exertion Gastrointestinal Gastrointestinal: Denies abdominal pain, diarrhea, melena, nausea or vomiting Genitourinary Genitourinary ED: Denies dysuria or urinary frequency Musculoskeletal Musculoskeletal: Denies myalgias Integumentary Denies rash Neurologic Neurologic: Reports headache(s); Denies paresthesias or weakness EXAM Physical Exam Const Vital Signs: 01/01/21 19:36 01/01/21 19:41 01/01/21 21:55 Temperature 98.6 F Temperature Source Oral Pulse Rate 86 79 Respiratory Rate 20 H 16 Respiratory Effort Normal Respiratory Pattern Normal Blood Pressure 163/87 H 123/102 H Blood Pressure Mean 112 109 Pulse Ox 100 94 Oxygen Delivery Method Room Air Room Air 01/01/21 22:05 01/01/21 23:11 01/01/21 23:23 Temperature Temperature Source Pulse Rate 73 71 78 Respiratory Rate 16 14 19 H Respiratory Effort Respiratory Pattern Blood Pressure 125/75 H 113/67 113/81 H Blood Pressure Mean 91 82 91 Pulse Ox 99 96 96 Oxygen Delivery Method Room Air Room Air Room Air Positive well nourished and well developed General Appearance ED: well developed HEENT Reports normocephalic and head/scalp atraumatic Eyes PERRL Neck no lymphadenopathy, supple and no JVD General: Negative for tenderness Resp normal respiratory effort and clear to auscultation bilaterally Cardio regular rate, regular rhythm and no murmurs GI normal to inspection, nondistended, normoactive bowel sounds and non-tender GI Narrative: No guarding, rebound, or peritoneal signs. Palpation: soft Back/Spine Back/Spine Narrative: Nontender. Extremity General Extremety ED: Negative for edema or tenderness General Extremity: Negative for edema Neuro oriented x3, CN's II-XII intact bilaterally and no sensory deficits noted Sensorium / Orientation: alert Motor Exam: strength 5/5 throughout Psych mental status grossly normal Skin no rashes or lesions noted Heart Score History: Slightly/Non-Suspicious ECG: Nonspecific Repolarization Age: </= 45 years Risk Factors: >/= 3 Risk Factors or History of CAD Score: 3 MDM MDM Lab Data Labs: Laboratory Results - last 24 hr 01/01/21 01/01/21 01/01/21 19:25 19:25 19:25 WBC 11.8 H RBC 5.10 Hgb 16.2 H Hct 48.4 H MCV 94.9 MCH 31.8 MCHC 33.5 RDW Std Deviation 43.3 RDW Coeff of Sakina 12.4 Plt Count 306 MPV 11.7 Immature Gran % (Auto) 0.500 Neut % (Auto) 52.4 Lymph % (Auto) 39.6 [place] % (Auto) 5.8 Eos % (Auto) 1.0 Baso % (Auto) 0.7 Absolute Neuts (auto) 6.2 Absolute Lymphs (auto) 4.66 H Nucleated RBC % 0 D-Dimer Quant (PE/DVT) 0.42 Sodium 140 Potassium 3.2 L Chloride 105 Carbon Dioxide 25.0 Anion Gap 10 BUN 7 Creatinine 0.91 Estim Creat Clear Calc 65.94 Est GFR (MDRD) Af Amer 86 Est GFR (MDRD) Non-Af 71 BUN/Creatinine Ratio 7.7 L Glucose 79 Calcium 9.7 Total Bilirubin 0.30 AST 19 ALT 42 Alkaline Phosphatase 95 Troponin I < 0.015 Total Protein 8.2 Albumin 4.4 Globulin 3.8 Albumin/Globulin Ratio 1.2 01/01/21 23:30 WBC RBC Hgb Hct MCV MCH MCHC RDW Std Deviation RDW Coeff of Sakina Plt Count MPV Immature Gran % (Auto) Neut % (Auto) Lymph % (Auto) [place] % (Auto) Eos % (Auto) Baso % (Auto) Absolute Neuts (auto) Absolute Lymphs (auto) Nucleated RBC % D-Dimer Quant (PE/DVT) Sodium Potassium Chloride Carbon Dioxide Anion Gap BUN Creatinine Estim Creat Clear Calc Est GFR (MDRD) Af Amer Est GFR (MDRD) Non-Af BUN/Creatinine Ratio Glucose Calcium Total Bilirubin AST ALT Alkaline Phosphatase Troponin I < 0.015 Total Protein Albumin Globulin Albumin/Globulin Ratio Radiography Diagnostic Testing: Radiology Impression Brain CT 01/01/21 19:45 IMPRESSION: Probable perivascular space in the left medial temporal lobe.. No evidence for obstructive hydrocephalus mass or acute bleed. Electronically Signed: Juan Luis Church MD at 20:48 EDT , Service support , Chest X-Ray 01/01/21 20:30 IMPRESSION: Normal x-ray examination of the chest. Electronically Signed: Juan Luis Church MD at 21:07 EDT , Service support , 1 view chest x-ray shows no acute disease on my read. EKG Initial EKG: Attestation: I personally reviewed and interpreted this EKG as follows: Interpretation: Sinus Rhythm Comments: EKG is sinus at [address] changes. Follow-up EKG: Attestation: I personally reviewed and interpreted this EKG as follows: Interpretation: Sinus Rhythm Comments: Sinus at 60 with nonspecific changes. Unchanged from prior. Prior: Unchanged Treatment and Re-Evaluation Comments:: Emergency department course: Patient had an IV placed. She was given morphine and Zofran IV. She is resting more comfortably. She did continue to complain of a headache. She was given Tylenol p.o. Treatment plan: Patient's pain is atypical and her heart score is 3. I feel that she is a suitable candidate for further outpatient evaluation. She will be discharged instructions follow-up her primary care physician within 2 days for another exam. Return to the emergency department for any worsening symptoms. Disposition: To home in improved and stable condition. Discharge Plan Triage Chief Complaint: Chest Pain ED Provider: Pete Pfeiffer Dx/Rx/DC Orders Clinical Impression: Atypical chest pain, Cephalalgia Instructions: ED Chest Pain, Uncertain Cause Prescriptions: No Action omeprazole 40 mg capsule,delayed release(DR/EC) 40 mg PO BID Qty: 90 RF: 1 sertraline 100 mg tablet 100 mg PO DAILY Qty: 90 RF: 3 azithromycin 250 mg tablet 250 mg PO QDAY Qty: 12 RF: 0 acetaminophen 650 MG tablet extended release 650 mg PO Q4H PRN (Reason: PAIN/FEVER) RF: 0 Primary Care Provider: Neymar Mayo Referrals: Neymar Mayo MD [Primary Care Provider] - 2 Days
[2021-01-02 00:15] VITALS: BP 106/55; PULSE 75; RESP 16; O2SAT 98
== END 2021-01-02 00:18 | disposition home or self-care (01) ==
LOC: ED 20:04
PROVIDERS: Emergency Provider Emergency Medicine; PCP Internal Medicine
DX: R07.89 Other chest pain (principal); R51.9 Headache, unspecified; R11.0 Nausea; R61 Generalized hyperhidrosis; R06.02 Shortness of breath; M79.7 Fibromyalgia; M19.90 Unspecified osteoarthritis, unspecified site; E07.9 Disorder of thyroid, unspecified; Z87.01 Personal history of pneumonia (recurrent); Z79.899 Other long term (current) drug therapy; F17.200 Nicotine dependence, unspecified, uncomplicated
CPT/HCPCS: 70450; 71045; 80053; 84484; 85025; 85379; 93005; 96361; 96374; 96375; 99285; J7030; A4216; J2405

== ENCOUNTER → 2021-01-06 11:27 | Outpatient (CLI) | payer OTHER, SELFPAY ==
[2021-01-06 10:38] VITALS: BMI 30.4
[2021-01-06 11:30] LABS: Bacteria 0 SEEN /hpf (None Seen); Mucous, Urine 0 SEEN /hpf (<or=2+); Red Blood Cells-Urine 0 SEEN /hpf (0-5); White Blood Cells 0 SEEN /hpf (0-5)
[2021-01-06 12:28] LABS: Absolute Lymphocyte Count 2.81 X10^3/uL (0.83-4.51); Absolute Neutrophil Count 3.2 X10^3/uL (2.0-7.7); Basophil# 0.06 X10^3/uL; Basophil% 0.9 % (0-1); Eosinophils% 4.3 % (0-5); Hematocrit 45.5 % (37-47); Hemoglobin 14.8 g/dL (12.0-15.0); Lymphocyte # 2.81 X10^3/ul (0.83-4.51); Lymphocyte % 40.6 % (19-41); Mean Corp Hgb Conc 32.5 g/dL (32-36); Mean Corpuscular Volume 95.4 fL (81-99); Mean Platelet Vol. 11.7 fl (6.2-12.0); Monocyte# 0.53 X10^3/uL; Monocyte% 7.7 % (0-10); NRBC Flagged by Analyzer 0 % (0-5); Neutrophil % 46.2 % (47-70); Platelet Count 279 K/mm3 (150-450); RBC Distribution Width CV 12.3 % (11.6-14.6); RBC Distribution Width SD 43.4 fl (35.1-43.9); Red Blood Count 4.77 M/mm3 (4.2-5.4); White Blood Count 6.9 K/mm3 (4.4-11.0)
[2021-01-06 12:44] LABS: Color, Urine Yellow (Yellow); Glucose, Dipstick Normal (Normal); Ketone-Dipstick Negative (Negative); Leukocyte Esterase-Dipstick Negative /ul (Negative); Nitrite-Dipstick Negative (Negative); Occult Blood-Urine Negative /ul (Negative); Protein-Dipstick Negative (Negative); Specific Gravity, Urine 1.005 (1.002-1.030); Urine Bilirubin Dipstick Negative (Negative); Urine Clarity Sl. Cloudy (Clear); Urine Urobilinogen Normal (Normal)
[2021-01-06 12:53] LABS: Squamous Epithelial Cells - UA 0-5 SEEN /hpf (5-10)
[2021-01-06 12:55] LABS: ALB/GLOB Ratio 1.1 RATIO (0.9-2.4); AST(SGOT) 24 U/L (15-37); Alanine Aminotransfer ALT/SGPT 45 U/L (13-56); Albumin, Serum 3.9 g/dL (3.2-5.0); Alkaline Phosphatase 93 U/L (45-117); Anion Gap 6 (5-15); BUN 9 mg/dL (7-18); BUN/Creat Ratio 12.2 RATIO (10-20); Calcium,Total 9.1 mg/dL (8.5-10.1); Chloride 106 mmol/L (98-107); Cholesterol 293 mg/dL (200); Creatinine, Serum 0.74 mg/dL (0.55-1.02); EST Glomerular Filtration Rate 91 mL/min (>60); Est Glom Filt Rate - Afr Amer 110 mL/min (>60); Globulin 3.5 g/dL (2.2-4.2); Glucose 74 mg/dL (74-106); High Density Lipoprotein 55 mg/dL; Potassium 3.9 mmol/L (3.5-5.1); Protein, Total 7.4 g/dL (6.4-8.2); Sodium Level 140 mmol/L (136-145); Triglycerides 173 mg/dL; Very Low Density Lipoprotein 35 mg/dL (5-40)
== END ==
PROVIDERS: PCP Internal Medicine; Referring Provider Physician Assistant; Visit Provider Physician Assistant
DX: I10 Essential (primary) hypertension (principal)
CPT/HCPCS: 36415; 80053; 80061; 81001; 85025

== ENCOUNTER → 2021-01-13 14:58 | Outpatient (CLI) | payer OTHER, SELFPAY ==
[2021-01-06 10:38] VITALS: BMI 30.4
[2021-01-13 17:58] LABS: CRP < 2.90 mg/L (0.0-3.0)
[2021-01-15 16:09] LABS: Endomysial Antibody IgA Negative (Negative)
[2021-01-15 16:53] LABS: Immunoglobulin A 160 mg/dL (87-352); t-Transglutaminase IgA <2 U/mL (0-3)
== END ==
PROVIDERS: PCP Internal Medicine; Referring Provider Internal Medicine Gastroenterology; Visit Provider Internal Medicine Gastroenterology
DX: R19.7 Diarrhea, unspecified (principal)
CPT/HCPCS: 36415; 82784; 83516; 86140; 86255; 87426

== ENCOUNTER 2021-01-23 09:06 | Outpatient (RCR) | payer OTHER, SELFPAY ==
[2020-12-19 10:25] VITALS: BMI 30.2
== END 2021-01-26 23:59 ==
LOC: EMPH 09:06
PROVIDERS: PCP Internal Medicine; Visit Provider Family Medicine Geriatric Medicine
DX: Z03.818 Encounter for observation for suspected exposure to other biological agents ruled out (principal)
CPT/HCPCS: 87426

== ENCOUNTER 2021-02-24 10:56 | Outpatient (RCR) | payer OTHER, SELFPAY ==
[2021-01-06 10:38] VITALS: BMI 30.4
== END 2021-02-25 23:59 ==
LOC: EMPH 10:56
PROVIDERS: PCP Internal Medicine; Referring Provider Family Medicine Geriatric Medicine; Visit Provider Family Medicine Geriatric Medicine
DX: Z03.818 Encounter for observation for suspected exposure to other biological agents ruled out (principal)
CPT/HCPCS: 87426

== ENCOUNTER → 2021-03-17 | Outpatient (CLI) | payer OTHER, SELFPAY ==
[2021-03-17 06:36] VITALS: BMI 30.4
[2021-03-17 10:37] LABS: Bacteria 0 SEEN /hpf (None Seen); Mucous, Urine 0 SEEN /hpf (<or=2+); Red Blood Cells-Urine 0 SEEN /hpf (0-5)
[2021-03-17 10:43] LABS: Color, Urine Yellow (Yellow); Glucose, Dipstick Normal (Normal); Ketone-Dipstick Negative (Negative); Leukocyte Esterase-Dipstick 25 /ul (Negative); Nitrite-Dipstick Negative (Negative); Occult Blood-Urine Negative /ul (Negative); Protein-Dipstick Negative (Negative); Specific Gravity, Urine 1.005 (1.002-1.030); Urine Bilirubin Dipstick Negative (Negative); Urine Clarity Clear (Clear); Urine Urobilinogen Normal (Normal)
[2021-03-17 10:49] LABS: Squamous Epithelial Cells - UA 0-5 SEEN /hpf (5-10); White Blood Cells 0-5 SEEN /hpf (0-5)
== END | disposition home or self-care (01) ==
LOC: LABSPEC 10:24
PROVIDERS: PCP Internal Medicine; Referring Provider Physician Assistant Surgical; Visit Provider Physician Assistant Surgical
DX: N39.0 Urinary tract infection, site not specified (principal)
CPT/HCPCS: 81001; 87086; 87088; 87186

== ENCOUNTER 2021-03-27 12:14 | Outpatient (RCR) | payer OTHER, SELFPAY ==
[2021-01-06 10:38] VITALS: BMI 30.4
== END 2021-03-28 23:59 ==
LOC: EMPH 12:14
PROVIDERS: PCP Internal Medicine; Referring Provider Family Medicine Geriatric Medicine; Visit Provider Family Medicine Geriatric Medicine
DX: Z03.818 Encounter for observation for suspected exposure to other biological agents ruled out (principal)
CPT/HCPCS: 87426

== ENCOUNTER 2021-04-28 13:37 | Outpatient (RCR) | payer OTHER, SELFPAY ==
[2021-03-17 06:36] VITALS: BMI 30.4
== END 2021-04-28 23:59 ==
LOC: EMPH 13:37
PROVIDERS: PCP Internal Medicine; Referring Provider Family Medicine Geriatric Medicine; Visit Provider Family Medicine Geriatric Medicine
DX: Z03.818 Encounter for observation for suspected exposure to other biological agents ruled out (principal)
CPT/HCPCS: 87426

== ENCOUNTER 2021-05-08 12:12 | Outpatient (RCR) | payer OTHER, SELFPAY ==
[2021-04-29 00:32] VITALS: BMI 30.4
== END 2021-05-28 23:59 ==
LOC: EMPH 12:12
PROVIDERS: PCP Internal Medicine; Referring Provider Family Medicine Geriatric Medicine; Visit Provider Family Medicine Geriatric Medicine
DX: Z03.818 Encounter for observation for suspected exposure to other biological agents ruled out (principal)
CPT/HCPCS: 87426

== ENCOUNTER 2021-05-22 12:29 | Emergency (ER) | payer OTHER, MEDICAID, SELFPAY ==
[2021-05-22 12:31] VITALS: BP 130/100; PULSE 110; RESP 18; TEMP 37.1; O2SAT 100; BMI 31.3
[2021-05-22 13:40] LABS: Absolute Lymphocyte Count 3.18 X10^3/uL (0.83-4.51); Absolute Neutrophil Count 3.8 X10^3/uL (2.0-7.7); Basophil# 0.06 X10^3/uL; Basophil% 0.8 % (0-1); Eosinophil# 0.26 X10^3/uL; Eosinophils% 3.3 % (0-5); Hematocrit 45.4 % (37-47); Hemoglobin 15.1 g/dL (12.0-15.0); Lymphocyte # 3.18 X10^3/ul (0.83-4.51); Lymphocyte % 39.9 % (19-41); Mean Corp Hgb Conc 33.3 g/dL (32-36); Mean Corpuscular Hgb 31.3 pg (27.0-32.0); Mean Platelet Vol. 11.2 fl (6.2-12.0); Monocyte# 0.62 X10^3/uL; Monocyte% 7.8 % (0-10); NRBC Flagged by Analyzer 0 % (0-5); Neutrophil # 3.82 X10^3/uL (2.7-7.7); Neutrophil % 47.8 % (47-70); Platelet Count 226 K/mm3 (150-450); RBC Distribution Width CV 12.7 % (11.6-14.6); RBC Distribution Width SD 43.8 fl (35.1-43.9); Red Blood Count 4.83 M/mm3 (4.2-5.4)
[2021-05-22 13:46] LABS: Internal QC Validated? YES +Cl - CLEAR BKGD; Pregnancy, Serum, hCG Quali. NEGATIVE Negative
[2021-05-22 13:51] LABS: Anion Gap 3 (5-15); BUN 9 mg/dL (7-18); BUN/Creat Ratio 11.6 RATIO (10-20); Calcium,Total 9.4 mg/dL (8.5-10.1); Chloride 110 mmol/L (98-107); Creatinine, Serum 0.77 mg/dL (0.55-1.02); EST Glomerular Filtration Rate 86 mL/min (>60); Est Glom Filt Rate - Afr Amer 104 mL/min (>60); Estimated Creatinine Clearance 77.13 ml/min; Glucose 99 mg/dL (74-106); Potassium 4.2 mmol/L (3.5-5.1); Sodium Level 140 mmol/L (136-145)
[2021-05-22 14:13] LABS: AST(SGOT) 29 U/L (15-37); Alanine Aminotransfer ALT/SGPT 46 U/L (13-56); Albumin, Serum 3.8 g/dL (3.2-5.0); Alkaline Phosphatase 85 U/L (45-117); Bilirubin, Direct 0.09 mg/dL (0.00-0.30); Globulin 3.7 g/dL (2.2-4.2); Lipase 92 U/L (73-393); Protein, Total 7.5 g/dL (6.4-8.2)
[2021-05-22] MEDS: morphine 8 MG/ML Syringe IV (14:22)
[2021-05-22] MEDS: 0.9% Normal Saline 1,000 ML 125 ML IV (14:22)
[2021-05-22] MEDS: Ondansetron 4 MG/2 ML Vial IV ×2 (14:23→17:35)
--- NOTE | 2021-05-22 14:31 | EDS_ITS ---
HPI HPI - GI History of Present Illness Chief Complaint: Abd Pain Informant: patient Abdominal Pain/Flank Pain Onset: Hours Context: Sudden Onset Timing: Continuous and Waxes and wanes Quality: Aching and Cramping Location: RUQ Current Severity: Moderate Maximum Severity: Severe Worsened by: Nothing Relieved by: Nothing Nausea/Vomiting/Emesis GI Symptom: Positive for Nausea; Negative for Vomiting Onset: Hours Severity: Moderate Diarrhea/Melena/Hematochezia GI Symptom: Positive for Diarrhea Onset: Hours Stool Quality: Positive for Loose and Watery; Negative for Mucous, Black, Maroon and BRB per rectum Severity: Mild Associated Symptoms Associated Symptoms: Negative for Dysuria, Frequency and Hematuria LMP: Status post hysterectomy Narrative Narrative: Patient is a 44-year-old woman status post appendectomy, hysterectomy with unilateral salpingo-oophorectomy who presents with right upper quadrant pain radiating through/between her shoulder blades. She had a hash brown from [place] at 10 AM. There is a family history cholelithiasis/cholecystitis. She denies pulmonary or cardiac symptoms. She denies dysuria, frequency, urgency or hematuria. She denies history of renal ureterolithiasis. There is no history of trauma. She denies fever, chills or night sweats. She does have mild congestion due to allergies. Prior similar symptoms: No Recent Illness/Hospitalization: No [facility] Medical History Arthritis Back problem Fibromyalgia GI problem Headache, migraine History of pneumonia Hypertension Liver disease Lupus Seasonal allergies Thyroid disease Home Medications acetaminophen 650 mg PO Q4H PRN 08/27/20 [History Last Taken Unknown] omeprazole 40 mg capsule,delayed release 40 mg PO BID #90 cap 12/19/20 [Rx Last Taken Unknown] sertraline 100 mg tablet 100 mg PO DAILY #90 tablet 12/19/20 [Rx Last Taken Unknown] cyclobenzaprine 5 mg tablet 5 mg PO QHS PRN #10 tab 01/06/21 [Rx Last Taken Unknown] hydrochlorothiazide 25 mg tablet 25 mg PO DAILY #30 tab 01/06/21 [Rx Last Taken Unknown] ondansetron HCl 4 mg tablet 4 mg PO Q8H PRN #10 tab 03/17/21 [Rx Last Taken Unknown] hydrocodone-acetaminophen 1 tab PO Q6H PRN PRN 3 Days #10 tablet 05/22/21 [Rx Last Taken Unknown] Allergy/AdvReac Type Severity Reaction Status Date / Time amoxicillin trihydrate Allergy Hives Verified 05/22/21 12:30 [From Augmentin] ibuprofen Allergy Hives Verified 05/22/21 12:30 Iodinated Contrast Media Allergy Swelling Verified 05/22/21 12:30 [DYEE] ketorolac [From Toradol] Allergy Hives Verified 05/22/21 12:30 nitrofurantoin Allergy Hives Verified 05/22/21 12:30 macrocrystalline [From Macrodantin] NSAIDS (Non-Steroidal Allergy Hives Verified 05/22/21 12:30 Anti-Inflamma phenazopyridine Allergy Hives Verified 05/22/21 12:30 [From Pyridium] potassium clavulanate Allergy Hives Verified 05/22/21 12:30 [From Augmentin] sulfamethoxazole Allergy Hives Verified 05/22/21 12:30 [From Bactrim] trimethoprim [From Bactrim] Allergy Hives Verified 05/22/21 12:30 STERI-STRIPS Allergy Other Uncoded 05/22/21 12:30 Family History Father Alcoholism CVA (cerebral vascular accident) Mother Cancer Melanoma Grandfather Cancer Grandmother Cancer Other Arthritis Autoimmune disorder Breast cancer Colon cancer Depression Heart disease Hypertension Liver disease Myocardial infarction Ovarian cancer Psychiatric care Thyroid disorder Uterine cancer ulcer disease Surgical History History of tonsillectomy Hx of section Hx of hernia repair Hx of hysterectomy Social History (Updated 05/22/21 @ 14:[address] Cosmo Richards MD) household members: none Smoking Status: Current every day smoker tobacco type: cigarettes alcohol intake: never substance use type: marijuana ROS ROS ED Constitutional Constitutional ED: Denies chills, fever(s), subjective or sweats ENT ENT ED: Denies ear pain, rhinorrhea or sore throat Cardiovascular Cardiovascular: Denies chest pain, orthopnea, palpitations or racing heartbeat Respiratory/Chest Respiratory/Chest: Denies cough, dyspnea, dyspnea on exertion or orthopnea Gastrointestinal Gastrointestinal: Reports abdominal pain, diarrhea and nausea; Denies constipation, melena or vomiting Genitourinary Genitourinary ED: Denies dysuria, hematuria or urinary frequency Musculoskeletal Musculoskeletal: Reports back pain; Denies arthralgias, myalgias or neck pain Integumentary Denies Abrasions or rash Neurologic Neurologic: Denies headache(s) or weakness Psychiatric Psychiatric: Reports anxiety Hematologic/Lymphatic Hematologic/Lymphatic: Denies easy bleeding or easy bruising EXAM Physical Exam Const Vital Signs: 05/22/21 12:31 Temperature 98.7 F Temperature Source Temporal Pulse Rate 110 H Respiratory Rate 18 Blood Pressure 130/100 H Blood Pressure Mean 110 Pulse Ox 100 Oxygen Delivery Method Room Air Positive well nourished, well developed and obese General Appearance ED: well developed and other Patient appears uncomfortable. She is reluctant to move and she is holding her abdomen. Nutritional Appearance: obese HEENT Reports TM's clear and moist mucous membranes normocephalic and atraumatic Tympanic Membrane ED: Yes TM's clear Eyes PERRL and EOMs intact bilaterally General Eye ED: Negative for pale conjunctiva or scleral icterus Neck no lymphadenopathy, supple and no JVD Resp clear to auscultation bilaterally Cardio regular rate, regular rhythm, S1 normal heart sound, S2 normal heart sound and no murmurs GI non-distended and no masses; Negative for non-tender Inspection: Negative for abdominal distention Auscultation: hypoactive bowel sounds; Negative for normoactive bowel sounds Palpation: soft and tender RUQ and Cleveland's sign; Negative for guarding, mass, pulsatile mass or rebound tenderness present Back/Spine no CVA tenderness Thoracic Spine / Upper Back: Negative for thoracic spinal tenderness Lumbar Spine / Lower Back: Negative for lumbar spinal tenderness Extremity full ROM General Extremety ED: Negative for edema or tenderness General Extremity: Negative for edema Neuro CN's II-XII intact bilaterally and no sensory deficits noted Sensorium / Orientation: alert, oriented to person, oriented to place and oriented to time Psych mental status grossly normal and thought process normal Skin no wounds Lesions: no lesions Rashes: no rashes MDM MDM MDM Narrative Medical decision making narrative: Patient presents with acute right upper quadrant pain radiating to the intrascapular area after a greasy meal. There is family history cholelithiasis. Suspect patient has biliary colic due to cholelithiasis versus chronic cholecystitis versus acute on chronic cholecystitis. Appropriate blood work was ordered. Ultrasound was ordered to be performed after 4 PM. The tech was made aware. She was medicated with antiemetic and pain medicine. Ultrasound revealed no evidence of cholelithiasis or chronic cholecystitis. Patient's work-up is unremarkable. Suspect patient has biliary colic. There is a possibility that she has cholelithiasis and not visualized on scan, approximately 5% incident. She may also have dysfunctional gallbladder and may need a HIDA scan as an outpatient. She was discharged home with appropriate home-going instructions Lab Data Attestation: I reviewed the patient's lab results. Labs: Laboratory Results - last 24 hr 05/22/21 05/22/21 05/22/21 13:28 13:28 13:28 WBC 8.0 RBC 4.83 Hgb 15.1 H Hct 45.4 MCV 94.0 MCH 31.3 MCHC 33.3 RDW Std Deviation 43.8 RDW Coeff of Sakina 12.7 Plt Count 226 MPV 11.2 Immature Gran % (Auto) 0.400 Neut % (Auto) 47.8 Lymph % (Auto) 39.9 [place] % (Auto) 7.8 Eos % (Auto) 3.3 Baso % (Auto) 0.8 Absolute Neuts (auto) 3.8 Absolute Lymphs (auto) 3.18 Nucleated RBC % 0 Sodium 140 Potassium 4.2 Chloride 110 H Carbon Dioxide 27.0 Anion Gap 3 L BUN 9 Creatinine 0.77 Estim Creat Clear Calc 77.13 Est GFR (MDRD) Af Amer 104 Est GFR (MDRD) Non-Af 86 BUN/Creatinine Ratio 11.6 Glucose 99 Calcium 9.4 Total Bilirubin Direct Bilirubin AST ALT Alkaline Phosphatase Total Protein Albumin Globulin Lipase Serum , Qual NEGATIVE Urine Color Urine Clarity Urine pH Ur Specific [place] Urine Protein Urine Glucose (UA) Urine Ketones Urine Occult Blood Urine Nitrite Urine Bilirubin Urine Urobilinogen Ur Leukocyte Esterase Urine RBC Urine WBC Ur Squamous Epith Cells Urine Bacteria Urine Mucus 05/22/21 05/22/21 13:28 15:00 WBC RBC Hgb Hct MCV MCH MCHC RDW Std Deviation RDW Coeff of Sakina Plt Count MPV Immature Gran % (Auto) Neut % (Auto) Lymph % (Auto) [place] % (Auto) Eos % (Auto) Baso % (Auto) Absolute Neuts (auto) Absolute Lymphs (auto) Nucleated RBC % Sodium Potassium Chloride Carbon Dioxide Anion Gap BUN Creatinine Estim Creat Clear Calc Est GFR (MDRD) Af Amer Est GFR (MDRD) Non-Af BUN/Creatinine Ratio Glucose Calcium Total Bilirubin 0.30 Direct Bilirubin 0.09 AST 29 ALT 46 Alkaline Phosphatase 85 Total Protein 7.5 Albumin 3.8 Globulin 3.7 Lipase 92 Serum , Qual Urine Color Yellow Urine Clarity Sl. Cloudy Urine pH 8.0 Ur Specific [place] 1.015 Urine Protein Negative Urine Glucose (UA) Normal Urine Ketones Negative Urine Occult Blood Negative Urine Nitrite Negative Urine Bilirubin Negative Urine Urobilinogen Normal Ur Leukocyte Esterase 25 H Urine RBC 0 SEEN Urine WBC 0 SEEN Ur Squamous Epith Cells 0-5 SEEN Urine Bacteria 0 SEEN Urine Mucus 0 SEEN Radiography Diagnostic Testing: Radiology Impression Gallbladder Ultrasound 05/22/21 16:00 IMPRESSION: Fatty infiltration of the liver. Electronically Signed: Lamont Villa MD at 16:43 EDT Tel , Service support , Critical Care Time Critical Care Time: Yes Critical care time (excluding procedures): 30-74 minutes Discharge Plan Triage Chief Complaint: Abd Pain ED Provider: Cosmo Richards Dx/Rx/DC Orders Clinical Impression: Right upper quadrant abdominal pain Instructions: ED Abdominal Pain Unkn Cause Fem Prescriptions: New hydrocodone-acetaminophen [hydrocodone-acetaminophen] 1 TABLET tablet 1 tab PO Q6H PRN PRN (Reason: Pain) 3 Days Qty: 10 RF: 0 No Action omeprazole 40 mg capsule,delayed release(DR/EC) 40 mg PO BID Qty: 90 RF: 1 sertraline 100 mg tablet 100 mg PO DAILY Qty: 90 RF: 3 hydrochlorothiazide 25 mg tablet 25 mg PO DAILY Qty: 30 RF: 0 cyclobenzaprine 5 mg tablet 5 mg PO QHS PRN (Reason: muscle spasm) Qty: 10 RF: 0 ondansetron HCl [Zofran] 4 mg tablet 4 mg PO Q8H PRN (Reason: nausea and vomiting) Qty: 10 RF: 0 acetaminophen 650 MG tablet extended release 650 mg PO Q4H PRN (Reason: PAIN/FEVER) RF: 0 Primary Care Provider: Neymar Mayo Referrals: Neymar Mayo MD [Primary Care Provider] - 3-5 Days (Patient presented with right upper quadrant pain radiating to the intrascapular area after greasy meal. Ultrasound was negative. There is a 5% incidence of nonvisualized stone versus 2 to 3% incidence of a calculus cholecystitis. Patient may need an outpatient HIDA scan.) Disposition Disposition: Home, Self Care
[2021-05-22 15:05] LABS: Bacteria 0 SEEN /hpf (None Seen); Mucous, Urine 0 SEEN /hpf (<or=2+); Red Blood Cells-Urine 0 SEEN /hpf (0-5); White Blood Cells 0 SEEN /hpf (0-5)
[2021-05-22 15:31] LABS: Color, Urine Yellow (Yellow); Glucose, Dipstick Normal (Normal); Ketone-Dipstick Negative (Negative); Leukocyte Esterase-Dipstick 25 /ul (Negative); Nitrite-Dipstick Negative (Negative); Occult Blood-Urine Negative /ul (Negative); Protein-Dipstick Negative (Negative); Specific Gravity, Urine 1.015 (1.002-1.030); Urine Bilirubin Dipstick Negative (Negative); Urine Clarity Sl. Cloudy (Clear); Urine Urobilinogen Normal (Normal)
[2021-05-22 15:42] LABS: Squamous Epithelial Cells - UA 0-5 SEEN /hpf (5-10)
--- NOTE | 2021-05-22 16:00 | US_ITS ---
STUDY: ABDOMINAL ULTRASOUND - RIGHT UPPER QUADRANT REASON FOR VISIT: Female, 46 years old PAIN to be done @ or after 4pm -- Right upper quadrant pain radiating to the intrasc TECHNIQUE: Ultrasound evaluation of the right upper quadrant was performed with real-time and static donnelly-scale imaging. TECHNICAL QUALITY: Adequate. COMPARISON: 12/06/2020 FINDINGS: Liver: The liver measures 18.4 cm. There is increased echogenicity consistent with fatty infiltration. The bile ducts are within normal limits. There is hepatic color flow. The direction of portal flow is hepatopetal. There is no demonstrated mass lesion. Gallbladder: Normal distended gallbladder. The gallbladder wall measures 2 mm. There is a negative sonographic Cleveland''s sign. There is no pericholecystic fluid. There are no gallstones. Common Bile Duct (C.B.D.): The common bile duct measures 5 mm. Pancreas: Normal size of the head, body and tail of the pancreas. There is normal echogenicity of the pancreas. There is no demonstrated pancreatic mass or cyst. Right Kidney: Normal size of the right kidney. The right kidney measures 12.1 cm. Normal renal cortex. The right cortex measures 1.8 cm. There is no demonstrated renal mass or cyst. There is no right hydronephrosis. US/Gallbladder IMPRESSION: Fatty infiltration of the liver. Electronically Signed: Lamont Villa MD at 16:43 EDT Tel , Service support ,
[2021-05-22] MEDS: Morphine 4 MG/ML Syringe IV (17:35)
[2021-05-22 17:49] VITALS: BP 144/85; PULSE 74; RESP 16; O2SAT 97
== END 2021-05-22 17:50 | disposition home or self-care (01) ==
PROVIDERS: Emergency Provider Emergency Medicine; PCP Internal Medicine
DX: R10.11 Right upper quadrant pain (principal); R19.7 Diarrhea, unspecified; R11.0 Nausea; M54.9 Dorsalgia, unspecified; E66.9 Obesity, unspecified; Z68.31 Body mass index [BMI] 31.0-31.9, adult; I10 Essential (primary) hypertension; E07.9 Disorder of thyroid, unspecified; K76.0 Fatty (change of) liver, not elsewhere classified; M19.90 Unspecified osteoarthritis, unspecified site; M32.9 Systemic lupus erythematosus, unspecified; M79.7 Fibromyalgia; G43.909 Migraine, unspecified, not intractable, without status migrainosus; Z87.01 Personal history of pneumonia (recurrent); Z79.899 Other long term (current) drug therapy; F17.210 Nicotine dependence, cigarettes, uncomplicated
CPT/HCPCS: 76705; 80048; 80076; 81001; 83690; 84703; 85025; 96361; 96374; 96375; 96376; 99284; J7030; A4216; J2405

== ENCOUNTER 2021-06-04 06:32 | Outpatient (RCR) | payer OTHER, SELFPAY ==
[2021-05-29 00:26] VITALS: BMI 30.4
== END 2021-06-28 23:59 ==
LOC: EMPH 06:32
PROVIDERS: PCP Internal Medicine; Referring Provider Family Medicine Geriatric Medicine; Visit Provider Family Medicine Geriatric Medicine
DX: Z03.818 Encounter for observation for suspected exposure to other biological agents ruled out (principal)
CPT/HCPCS: 87426

== ENCOUNTER 2021-07-09 14:38 | Outpatient (RCR) | payer OTHER, SELFPAY ==
[2021-06-29 00:21] VITALS: BMI 30.4
== END 2021-07-28 23:59 ==
LOC: EMPH 14:38
PROVIDERS: PCP Internal Medicine; Referring Provider Family Medicine Geriatric Medicine; Visit Provider Family Medicine Geriatric Medicine
DX: Z03.818 Encounter for observation for suspected exposure to other biological agents ruled out (principal)
CPT/HCPCS: 87426

== ENCOUNTER 2021-07-29 13:47 | Emergency (ER) | payer OTHER, SELFPAY ==
[2021-07-29 13:49] VITALS: BP 141/89; PULSE 95; RESP 16; TEMP 36.4; O2SAT 98; BMI 30.9
--- NOTE | 2021-07-29 14:31 | EKG12_ITS ---
Test Reason : CP Blood Pressure : / mmHG Vent. Rate : 092 BPM Atrial Rate : 092 BPM P-R Int : 150 ms QRS Dur : 082 ms QT Int : 362 ms P-R-T Axes : 057 062 038 degrees QTc Int : 447 ms Normal sinus rhythm Normal ECG Confirmed by KIMBERLY MELGAR, RAMON ([id number]), slot editor DOUGLAS MCCRAY ([id number]) on 08/03/2021 9:34:13 AM Referred By: SAPPHIRE/LIUDMILA Confirmed By:SUGAR HARRIS MD
--- NOTE | 2021-07-29 14:40 | RAD_ITS ---
STUDY: X-RAY CHEST REASON FOR EXAM: Female, 46 years old. Chest pain TECHNIQUE: Single AP portable view of the chest. COMPARISON: Comparison is made with prior study of 01/01/2021. FINDINGS: EKG electrodes are seen. The lungs are clear and expanded. There is no demonstrated pleural abnormality. Normal size heart. Normal mediastinum and alan. Normal visualized pulmonary arteries. Normal visualized aortic arch and descending thoracic aorta. Normal visualized thoracic spine. Normal visualized ribs, clavicles, and shoulders. There is no demonstrated abnormality of the visualized soft tissue structures of the upper abdomen. RAD/Chest 1 View (Portable) IMPRESSION: Normal x-ray examination of the chest. Electronically Signed: Joe Guaman MD at 15:06 EST , Service support ,
--- NOTE | 2021-07-29 14:48 | ED.VIS.CHEST ---
HPI History of Present Illness Chief Complaint: Chest Pain Informant: patient Onset/Context/Timing Onset: Today Current Severity: Mild Maximum Severity: Mild Worsened By: Nothing Relieved By: Nothing Associated Symptoms: Positive for Diaphoresis; Negative for Vomiting, Dyspnea, Cough, Fever, Lightheadedness, Acid Reflux and Palpitations Narrative Prior Similar Symptoms: No Recent Illness/Hospitalization: No CVD Risk Factors: Positive for Hypertension, Family History 1' </=55 and Smoking; Negative for Diabetes and Hypercholesterolemia PE Risk Factors: Negative for Recent Travel/Surgery, Recent Immobilization, Prior DVT or PE and OCP + Smoking + >/=35 TAD Risk Factors: Positive for Hypertension; Negative for Marfan's Syndrome [facility] Medical History Acute otitis externa of both ears Arthritis Back problem Fibromyalgia GI problem Headache, migraine History of pneumonia Hypertension Liver disease Lupus Seasonal allergies Thyroid disease Home Medications acetaminophen 650 mg PO Q4H PRN 08/27/20 [History Last Taken Unknown] omeprazole 40 mg capsule,delayed release 40 mg PO BID #90 cap 12/19/20 [Rx Last Taken Unknown] ondansetron HCl 4 mg tablet 4 mg PO Q8H PRN #10 tab 03/17/21 [Rx Last Taken Unknown] amlodipine 5 mg tablet 5 mg PO DAILY #30 tab 06/26/21 [Rx Last Taken Unknown] Vitamin C PO 06/29/21 [History Last Taken Unknown] Vitamin D3 PO 06/29/21 [History Last Taken Unknown] Zinc PO 06/29/21 [History Last Taken Unknown] sertraline 100 mg tablet 150 mg PO DAILY tab 06/29/21 [History Last Taken Unknown] tumeric PO 06/29/21 [History Last Taken Unknown] azithromycin 250 mg tablet 250 mg PO QDAY #6 tab 07/08/21 [Rx Last Taken Unknown] Allergy/AdvReac Type Severity Reaction Status Date / Time amoxicillin trihydrate Allergy Hives Verified 07/29/21 13:49 [From Augmentin] Iodinated Contrast Media Allergy Swelling Verified 07/29/21 13:49 [DYEE] nitrofurantoin Allergy Hives Verified 07/29/21 13:49 macrocrystalline [From Macrodantin] phenazopyridine Allergy Hives Verified 07/29/21 13:49 [From Pyridium] potassium clavulanate Allergy Hives Verified 07/29/21 13:49 [From Augmentin] sulfamethoxazole Allergy Hives Verified 07/29/21 13:49 [From Bactrim] trimethoprim [From Bactrim] Allergy Hives Verified 07/29/21 13:49 STERI-STRIPS Allergy Other Uncoded 07/29/21 13:49 Family History Father Alcoholism CVA (cerebral vascular accident) Mother Cancer Melanoma Grandfather Cancer Grandmother Cancer Other Arthritis Autoimmune disorder Breast cancer Colon cancer Depression Heart disease Hypertension Liver disease Myocardial infarction Ovarian cancer Psychiatric care Thyroid disorder Uterine cancer ulcer disease Surgical History History of tonsillectomy Hx of section Hx of hernia repair Hx of hysterectomy Social History household members: none Smoking Status: Current every day smoker tobacco type: cigarettes alcohol intake: never substance use type: marijuana ROS ROS ED ROS Narrative Burning in her feet. Review of Systems ROS Unobtainable: Denies due to encephalopathy Constitutional Constitutional ED: Denies fever(s) Eyes Eyes: Denies none ENT ENT ED: Denies ear pain Cardiovascular Cardiovascular: Reports as per HPI and chest pain Respiratory/Chest Respiratory/Chest: Denies cough or dyspnea Gastrointestinal Gastrointestinal: Reports nausea; Denies abdominal pain, diarrhea or vomiting Musculoskeletal Musculoskeletal: Denies myalgias Integumentary Denies rash Neurologic Neurologic: Denies headache(s) Psychiatric Psychiatric: Denies depression Endocrine Endocrinology: Denies polyuria Hematologic/Lymphatic Hematologic/Lymphatic: Denies easy bruising Allergic/Immunologic Allergic/Immunologic ED: Denies urticaria EXAM Physical Exam Narrative Exam Narrative: Middle-aged female no acute distress vital signs stable afebrile. Pulse ox 90% room air no signs hypoxia. H EENT exam unremarkable. Neck nontender no lymphadenopathy. Lungs clear to auscultation bilaterally. Heart regular rate and rhythm rate about 95 no murmur. Chest wall nontender. Abdomen soft nontender normal bowel sounds no peritoneal signs. Patient moving all 4 extremities. Calves are nontender without edema or cords. Back nontender. Skin unremarkable. Neurologic exam normal. Patient has equal symmetrical radial pulses equal symmetrical dorsalis pedis pulses. Neurologic exam normal. Const Vital Signs: 07/29/21 13:49 07/29/21 14:17 07/29/21 14:39 Temperature 97.6 F L Temperature Source Oral Pulse Rate 95 Respiratory Rate 16 Respiratory Effort Normal Non-Labored Respiratory Pattern Normal Blood Pressure 141/89 H Blood Pressure Mean 106 Pulse Ox 98 Oxygen Delivery Method Room Air Room Air Positive well nourished and well developed; Negative for obese, cachectic, contractures or unkempt General Appearance ED: well developed and NAD; Negative for unkempt, cachectic, contractures or pallor Nutritional Appearance: Negative for cachectic or obese HEENT Reports moist mucous membranes normocephalic and atraumatic; Negative for trauma or tenderness Eyes PERRL and EOMs intact bilaterally Neck no lymphadenopathy, supple and no JVD General: Negative for tenderness Chest Wall inspection of chest normal and palpation of chest normal Chest: Negative for tenderness Resp normal respiratory effort and clear to auscultation bilaterally Effort and Inspection: respiratory distress Auscultation: Negative for rales, rhonchi or wheezes Cardio regular rate, regular rhythm, S1 normal heart sound, S2 normal heart sound and no murmurs Rate: Negative for bradycardia or tachycardic Rhythm: Negative for abnormal rhythm Peripheral Pulses: pulses 2+ throughout, radial pulses present and dorsalis pedis pulses present GI normal to inspection, nondistended, normoactive bowel sounds, soft to palpation, non-tender, non-distended and no masses; Negative for hepatosplenomegaly Auscultation: Negative for hyperactive bowel sounds Palpation: Negative for splenomegaly or mass Back/Spine no CVA tenderness and no thoracic nor lumbar tenderness General Back: Negative for CVA tenderness Cervical Spine: Negative for cervical spine tenderness Extremity normal to inspection General Extremety ED: Negative for edema, pulses abnormal or tenderness General Extremity: Negative for edema or pulses abnormal Neuro oriented x3, CN's II-XII intact bilaterally and no sensory deficits noted Sensorium / Orientation: awake, alert, oriented to person, oriented to place and oriented to time Sensory Exam: No sensory level loss detected Motor Exam: strength 5/5 throughout and strength abnormal Psych mental status grossly normal Appearance: Negative for unkempt Mood & Affect: Negative for depressed or tearful Skin no rashes or lesions noted and no wounds General Skin Exam: Negative for jaundice or pallor Rashes: No rashes noted Heart Score History: Slightly/Non-Suspicious ECG: Normal Age: </= 45 years Risk Factors: 1 or 2 Risk Factors Troponin: </= Normal Limit Score: 1 MDM MDM MDM Narrative Medical decision making narrative: 46-year-old female past medical history of hypertension. States that she had a vaccine on Tuesday and has not really felt well since. Today she was monitoring the waiting room in triage when she got nauseated, her feet started burning she did not feel well. She noticed some mild midsternal chest discomfort with no radiation. No pleuritic pain no hemoptysis. She will undergo a cardiac work-up she is never had any cardiac disease or significant work-up. There is some family history and she is a smoker. Her exam is benign. Repeat exam patient is doing well at 3:57 PM. We discussed her test results. She can be discharged to home outpatient follow-up with her primary care physician Dr. Mayo due to her family history she may warrant an outpatient stress test. She will return if feeling worse. Prior to receiving the Covid shot she had no cardiac symptoms or any symptoms with exertion. Lab Data Attestation: I reviewed the patient's lab results. Lab results narrative: CBC shows a white count of 7. Hemoglobin 13.9. Electrolytes unremarkable gap of 8 normal BUN and creatinine. Glucose of 102 troponin is normal at 4. Chest x-ray unremarkable. Labs: Laboratory Results - last 24 hr 07/29/21 07/29/21 14:52 14:52 WBC 7.3 RBC 4.31 Hgb 13.9 Hct 40.2 MCV 93.3 MCH 32.3 H MCHC 34.6 RDW Std Deviation 45.9 H RDW Coeff of Sakina 13.2 Plt Count 232 MPV 11.3 Immature Gran % (Auto) 0.500 Neut % (Auto) 50.7 Lymph % (Auto) 36.3 [place] % (Auto) 8.2 Eos % (Auto) 3.2 Baso % (Auto) 1.1 H Absolute Neuts (auto) 3.7 Absolute Lymphs (auto) 2.64 Nucleated RBC % 0 Sodium 141 Potassium 4.0 Chloride 109 H Carbon Dioxide 24.0 Anion Gap 8 BUN 10 Creatinine 0.72 Estim Creat Clear Calc 86.10 Est GFR (MDRD) Af Amer 114 Est GFR (MDRD) Non-Af 94 BUN/Creatinine Ratio 14.0 Glucose 102 Calcium 9.0 Troponin I High Sens 4 Radiography Chest X-Ray - ED: 1 View, Read by ED Physician, Read by Radiologist, Normal, Heart, Lungs, Mediastinum, Bony Structures, No Acute Disease and Chronic Changes Diagnostic Testing: Clinical Impression(s) from Imaging Studies Chest X-Ray 07/29/21 14:40 IMPRESSION: Normal x-ray examination of the chest. Electronically Signed: Joe Guaman MD at 15:06 EST , Service support , Chest x-ray, single portable view interpreted by myself and radiology shows no acute normality. Normal cardiac silhouette and mediastinum. No infiltrates. Rhythm Strip Rhythm Strip: Sinus Rhythm Rate: 92 Ectopy: None EKG Initial EKG: Attestation: I personally reviewed and interpreted this EKG as follows: Interpretation: Sinus Rhythm and No Acute Injury Pattern Comments: Normal sinus rhythm rate of 92 no acute signs of RI nor ischemia. No old EKG available. Prior EKG tracings: not available for review Discharge Plan Triage Chief Complaint: Chest Pain ED Provider: Kei Hernandes Dx/Rx/DC Orders Clinical Impression: Chest pain Instructions: ED Chest Pain, Uncertain Cause Prescriptions: No Action omeprazole 40 mg capsule,delayed release(DR/EC) 40 mg PO BID Qty: 90 RF: 1 ondansetron HCl [Zofran] 4 mg tablet 4 mg PO Q8H PRN (Reason: nausea and vomiting) Qty: 10 RF: 0 amlodipine 5 mg tablet 5 mg PO DAILY Qty: 30 RF: 1 sertraline 100 mg tablet 150 mg PO DAILY RF: 0 tumeric PO RF: 0 Vitamin C PO RF: 0 Vitamin D3 PO RF: 0 Zinc PO RF: 0 azithromycin 250 mg tablet 250 mg PO QDAY Qty: 6 RF: 0 acetaminophen 650 MG tablet extended release 650 mg PO Q4H PRN (Reason: PAIN/FEVER) RF: 0 Primary Care Provider: Neymar Mayo Referrals: Neymar Mayo MD [Primary Care Provider] - As soon as possible Activity Restrictions/Additional Instructions: Follow-up with primary care physician discuss outpatient stress test due to your family history. Today all your test were normal there is no signs of a heart attack or any other acute abnormality. This does not rule out cardiac disease and also I want to follow-up with your primary care physician. Return if feeling worse. Disposition Disposition: Home, Self Care
[2021-07-29 15:02] LABS: Absolute Lymphocyte Count 2.64 X10^3/uL (0.83-4.51); Absolute Neutrophil Count 3.7 X10^3/uL (2.0-7.7); Basophil# 0.08 X10^3/uL; Basophil% 1.1 % (0-1); Eosinophil# 0.23 X10^3/uL; Eosinophils% 3.2 % (0-5); Hematocrit 40.2 % (37-47); Hemoglobin 13.9 g/dL (12.0-15.0); Lymphocyte # 2.64 X10^3/ul (0.83-4.51); Lymphocyte % 36.3 % (19-41); Mean Corp Hgb Conc 34.6 g/dL (32-36); Mean Corpuscular Hgb 32.3 pg (27.0-32.0); Mean Corpuscular Volume 93.3 fL (81-99); Mean Platelet Vol. 11.3 fl (6.2-12.0); Monocyte% 8.2 % (0-10); NRBC Flagged by Analyzer 0 % (0-5); Neutrophil # 3.69 X10^3/uL (2.7-7.7); Neutrophil % 50.7 % (47-70); Platelet Count 232 K/mm3 (150-450); RBC Distribution Width CV 13.2 % (11.6-14.6); RBC Distribution Width SD 45.9 fl (35.1-43.9); Red Blood Count 4.31 M/mm3 (4.2-5.4); White Blood Count 7.3 K/mm3 (4.4-11.0)
[2021-07-29 15:21] LABS: Anion Gap 8 (5-15); BUN 10 mg/dL (7-18); Chloride 109 mmol/L (98-107); Creatinine, Serum 0.72 mg/dL (0.55-1.02); EST Glomerular Filtration Rate 94 mL/min (>60); Est Glom Filt Rate - Afr Amer 114 mL/min (>60); Glucose 102 mg/dL (74-106); Sodium Level 141 mmol/L (136-145); Troponin-I HS 4 pg/mL (3.0-54.0)
[2021-07-29 16:05] VITALS: BP 116/82; PULSE 74; RESP 15; O2SAT 98
== END 2021-07-29 16:17 | disposition home or self-care (01) ==
PROVIDERS: Emergency Provider Emergency Medicine; PCP Internal Medicine
DX: R07.9 Chest pain, unspecified (principal); R11.0 Nausea; R61 Generalized hyperhidrosis; I10 Essential (primary) hypertension; M79.7 Fibromyalgia; E07.9 Disorder of thyroid, unspecified; M19.90 Unspecified osteoarthritis, unspecified site; Z87.01 Personal history of pneumonia (recurrent); Z79.899 Other long term (current) drug therapy; F17.210 Nicotine dependence, cigarettes, uncomplicated
CPT/HCPCS: 71045; 80048; 84484; 85025; 93005; 99284; A4216

== ENCOUNTER 2021-08-11 16:13 | Emergency (ER) | payer OTHER, SELFPAY ==
[2021-08-11 16:14] VITALS: BP 165/106; PULSE 116; RESP 18; TEMP 36.2; O2SAT 98; BMI 32.3
[2021-08-11 16:41] LABS: Absolute Lymphocyte Count 3.01 X10^3/uL (0.83-4.51); Absolute Neutrophil Count 5.7 X10^3/uL (2.0-7.7); Basophil# 0.06 X10^3/uL; Basophil% 0.6 % (0-1); Eosinophil# 0.19 X10^3/uL; Hemoglobin 14.9 g/dL (12.0-15.0); Lymphocyte # 3.01 X10^3/ul (0.83-4.51); Lymphocyte % 31.2 % (19-41); Mean Corp Hgb Conc 33.9 g/dL (32-36); Mean Corpuscular Hgb 32.2 pg (27.0-32.0); Mean Platelet Vol. 11.5 fl (6.2-12.0); Monocyte# 0.63 X10^3/uL; Monocyte% 6.5 % (0-10); NRBC Flagged by Analyzer 0 % (0-5); Neutrophil # 5.71 X10^3/uL (2.7-7.7); Neutrophil % 59.2 % (47-70); Platelet Count 232 K/mm3 (150-450); RBC Distribution Width CV 13.2 % (11.6-14.6); RBC Distribution Width SD 45.7 fl (35.1-43.9); Red Blood Count 4.63 M/mm3 (4.2-5.4); White Blood Count 9.7 K/mm3 (4.4-11.0)
[2021-08-11 16:56] LABS: Anion Gap 5 (5-15); BUN 11 mg/dL (7-18); BUN/Creat Ratio 13.5 RATIO (10-20); Calcium,Total 9.4 mg/dL (8.5-10.1); Chloride 110 mmol/L (98-107); Creatinine, Serum 0.82 mg/dL (0.55-1.02); EST Glomerular Filtration Rate 81 mL/min (>60); Est Glom Filt Rate - Afr Amer 98 mL/min (>60); Estimated Creatinine Clearance 72.42 ml/min; Glucose 120 mg/dL (74-106); Potassium 3.6 mmol/L (3.5-5.1); Sodium Level 142 mmol/L (136-145)
[2021-08-11 17:51] LABS: Bacteria 0 SEEN /hpf (None Seen); Mucous, Urine 0 SEEN /hpf (<or=2+); White Blood Cells 0 SEEN /hpf (0-5)
[2021-08-11 18:12] LABS: Color, Urine Yellow (Yellow); Glucose, Dipstick Normal (Normal); Ketone-Dipstick Negative (Negative); Leukocyte Esterase-Dipstick Negative /ul (Negative); Nitrite-Dipstick Negative (Negative); Occult Blood-Urine 10 /ul (Negative); Protein-Dipstick Negative (Negative); Specific Gravity, Urine 1.015 (1.002-1.030); Urine Bilirubin Dipstick Negative (Negative); Urine Clarity Clear (Clear); Urine Urobilinogen Normal (Normal); Urine pH 6.5 (5.0 - 8.0)
[2021-08-11 18:25] LABS: Red Blood Cells-Urine 0-5 SEEN /hpf (0-5); Squamous Epithelial Cells - UA 0-5 SEEN /hpf (5-10)
--- NOTE | 2021-08-11 19:26 | CT_ITS ---
STUDY: CT Abdomen And Pelvis W/O Contrast Injection 08/11/2021 8:10 PM REASON FOR EXAM: Female, 46 years old. Technologist Notes Other, ABDOMEN PAIN, NAUSEA, DARK STOOLS HX: HTN,LUPUS SURGERY:APPENDECTOMY,HERNIA REPAIR,,HYSTERECTOMY Rectal bleeding TECHNIQUE: Transaxial images were obtained without oral contrast, and without intravenous contrast. Individualized dose optimization techniques were used for this CT. COMPARISON: 07.21.20 FINDINGS: The visualized lung bases are unremarkable. The visualized portions of the heart are within normal limits. There is decreased attenuation of the liver consistent with steatosis. Normal gallbladder and extrahepatic biliary system. Normal spleen. Normal pancreas.There is hepatomegaly with diffuse hepatic enlargement. Normal bilateral adrenal glands. No acute findings of the right kidney. No acute findings of the left kidney. Normal visualized stomach. Normal small intestine. Stool throughout the colon. There are surgical clips in the region of the appendix consistent with a prior appendectomy. There are no acute findings of the abdominal aorta. Normal inferior vena cava. Subcentimeter mesenteric lymph nodes. Normal urinary bladder. There is absence of the uterus consistent with a prior hysterectomy.Epigastric ventral hernia containing fat. There is an umbilical hernia containing fat. Partially visualized disc herniation L5-S1. MRI can better evaluate. IMPRESSION: (NOT LISTED IN ORDER OF SIGNIFICANCE) Fatty liver. Liver is enlarged. Epigastric ventral hernia containing fat. Umbilical hernia containing fat. Partially visualized disc herniation L5-S1. MRI can better evaluate. Other findings as above. Electronically Signed: Zachariah Main MD at 20:13 EST , Service support , CT/Abdomen/Pelvis without Cont
--- NOTE | 2021-08-11 19:27 | ED.VIS.GI ---
HPI HPI - GI History of Present Illness Chief Complaint: GI Bleed Detail of Chief Complaint: Abdominal pain with diarrhea now bloody diarrhea Informant: patient Abdominal Pain/Flank Pain Onset: Today (Bloody diarrhea with pain and distention today) and Days (Diarrhea started 3 days ago) Context: Gradual Onset Timing: Continuous and Waxes and wanes Quality: Aching and Cramping Location: Diffuse Current Severity: Moderate Maximum Severity: Severe Worsened by: Car ride and Movement Relieved by: Nothing Nausea/Vomiting/Emesis GI Symptom: Positive for Nausea; Negative for Vomiting Diarrhea/Melena/Hematochezia GI Symptom: Positive for Diarrhea and Hematochezia; Negative for Melena Onset: Today (Today blood was noted for the 1st time) and Days (Diarrhea started 3 days ago) Stool Quality: Positive for Loose and Watery Severity: Moderate Associated Symptoms Associated Symptoms: Negative for Dysuria, Frequency and Hematuria LMP: Status post hysterectomy due to fibroids Narrative Narrative: Patient is a 46-year-old woman with history of hypertension and biliary colic who presents with diarrhea that started 3 days ago. She states she had 8 bloody loose watery stools this afternoon. She reports distention abdominal pain. She reports pain with movement. She complains of subjective fever. She has had chills. She denies headache, visual, ocular auditory symptoms. She denies cardiac respiratory symptoms. She does report nausea without vomiting. She denies dysuria, frequency, urgency or hematuria. She denies vaginal bleeding or vaginal discharge. She denies rash. She denies myalgias arthralgias. Prior similar symptoms: No Recent Illness/Hospitalization: No PFSH PFSH Medical History Acute otitis externa of both ears Arthritis Back problem Fibromyalgia GI problem Headache, migraine History of pneumonia Hypertension Liver disease Lupus Seasonal allergies Thyroid disease Home Medications acetaminophen 650 mg PO Q4H PRN 08/27/20 [History Last Taken Unknown] omeprazole 40 mg capsule,delayed release 40 mg PO BID #90 cap 12/19/20 [Rx Last Taken Unknown] ondansetron HCl 4 mg tablet 4 mg PO Q8H PRN #10 tab 03/17/21 [Rx Last Taken Unknown] amlodipine 5 mg tablet 5 mg PO DAILY #30 tab 06/26/21 [Rx Last Taken Unknown] Vitamin C PO 06/29/21 [History Last Taken Unknown] Vitamin D3 PO 06/29/21 [History Last Taken Unknown] Zinc PO 06/29/21 [History Last Taken Unknown] sertraline 100 mg tablet 150 mg PO DAILY tab 06/29/21 [History Last Taken Unknown] tumeric PO 06/29/21 [History Last Taken Unknown] azithromycin 250 mg tablet 250 mg PO QDAY #6 tab 07/08/21 [Rx Last Taken Unknown] ciprofloxacin HCl 500 mg PO BID #14 tablet 08/11/21 [Rx Last Taken Unknown] hydrocodone-acetaminophen 1 tab PO Q6H PRN PRN 3 Days #10 tablet 08/11/21 [Rx Last Taken Unknown] metronidazole 500 mg PO Q8H #21 tab 08/11/21 [Rx Last Taken Unknown] Allergy/AdvReac Type Severity Reaction Status Date / Time amoxicillin trihydrate Allergy Hives Verified 08/11/21 16:14 [From Augmentin] Iodinated Contrast Media Allergy Swelling Verified 08/11/21 16:14 [DYEE] nitrofurantoin Allergy Hives Verified 08/11/21 16:14 macrocrystalline [From Macrodantin] phenazopyridine Allergy Hives Verified 08/11/21 16:14 [From Pyridium] potassium clavulanate Allergy Hives Verified 08/11/21 16:14 [From Augmentin] sulfamethoxazole Allergy Hives Verified 08/11/21 16:14 [From Bactrim] trimethoprim [From Bactrim] Allergy Hives Verified 08/11/21 16:14 STERI-STRIPS Allergy Other Uncoded 08/11/21 16:14 Family History Father Alcoholism CVA (cerebral vascular accident) Mother Cancer Melanoma Grandfather Cancer Grandmother Cancer Other Arthritis Autoimmune disorder Breast cancer Colon cancer Depression Heart disease Hypertension Liver disease Myocardial infarction Ovarian cancer Psychiatric care Thyroid disorder Uterine cancer ulcer disease Surgical History History of tonsillectomy Hx of section Hx of hernia repair Hx of hysterectomy Social History household members: none Smoking Status: Current every day smoker tobacco type: cigarettes alcohol intake: never substance use type: marijuana ROS ROS ED Constitutional Constitutional ED: Reports chills, fever(s) and subjective; Denies sweats or weight loss ENT ENT ED: Denies ear pain, rhinorrhea or sore throat Cardiovascular Cardiovascular: Denies chest pain, palpitations or racing heartbeat Respiratory/Chest Respiratory/Chest: Denies cough, dyspnea or dyspnea on exertion Gastrointestinal Gastrointestinal: Reports abdominal pain, diarrhea and nausea; Denies constipation, melena or vomiting Genitourinary Genitourinary ED: Denies dysuria, hematuria or urinary frequency Musculoskeletal Musculoskeletal: Reports myalgias; Denies arthralgias, back pain or neck pain Integumentary Denies rash Neurologic Neurologic: Reports weakness; Denies headache(s) or paresthesias Endocrine Endocrinology: Denies polydipsia, polyphagia or polyuria Hematologic/Lymphatic Hematologic/Lymphatic: Denies easy bruising EXAM Physical Exam Const Vital Signs: 08/11/21 16:14 08/11/21 21:04 Temperature 97.2 F L Temperature Source Temporal Pulse Rate 116 H Respiratory Rate 18 Blood Pressure 165/106 H 130/78 H Blood Pressure Mean 125 95 Pulse Ox 98 Oxygen Delivery Method Room Air Positive well nourished, well developed and obese; Negative for cachectic, contractures or unkempt General Appearance ED: well developed; Negative for unkempt, cachectic, contractures, NAD or pallor Nutritional Appearance: obese; Negative for cachectic HEENT Reports TM's clear and dry mucous membranes HEENT Narrative: Patient appears flushed. normocephalic and atraumatic; Negative for trauma or tenderness Tympanic Membrane ED: Yes TM's clear Mouth ED: Yes dry mucous membranes Mouth: dry mucous membranes Eyes PERRL and EOMs intact bilaterally General Eye ED: Negative for pale conjunctiva or scleral icterus Neck no lymphadenopathy, supple and no JVD Resp normal respiratory effort and clear to auscultation bilaterally Cardio regular rhythm, S1 normal heart sound, S2 normal heart sound and no murmurs Rate: tachycardic GI no masses; Negative for non-tender or non-distended Auscultation: Negative for normoactive bowel sounds Palpation: tender LLQ, RLQ, LUQ and RUQ, guarding LLQ and RLQ and rebound tenderness present diffuse; Negative for soft or rigid Back/Spine no CVA tenderness Cervical Spine: Negative for cervical spine tenderness Thoracic Spine / Upper Back: Negative for thoracic spinal tenderness Lumbar Spine / Lower Back: Negative for lumbar spinal tenderness Extremity full ROM General Extremety ED: Negative for edema or tenderness General Extremity: Negative for edema Neuro CN's II-XII intact bilaterally Sensorium / Orientation: alert and oriented to person Motor Exam: strength 5/5 throughout Psych mental status grossly normal and thought process normal Appearance: Negative for unkempt Skin no wounds General Skin Exam: Negative for jaundice or pallor Lesions: no lesions Rashes: no rashes MDM MDM MDM Narrative Medical decision making narrative: Differential would include infectious colitis versus ischemic colitis versus inflammatory colitis. White count is normal. Differential is unremarkable. Basic metabolic panel is unremarkable. UA is negative. Scan without contrast was performed since patient has allergy to contrast. She was treated with ciprofloxacin metronidazole. She also was medicated with morphine. Case was discussed with Dr. Salena simmons for gastroenterology. Asked if patient had cramping pain prior to the bloody diarrhea. She was asked and responded yes. He suspect she had low flow causing the bloody diarrhea and may be related to the sertraline. Plan is discharged with prescription for pain medicine antibiotics and to contact his office in the morning for follow-up he said there may not be evidence of bowel wall thickening since patient head scan without contrast because of her allergy. Lab Data Labs: Laboratory Results - last 24 hr 08/11/21 08/11/21 08/11/21 16:35 16:35 17:38 WBC 9.7 RBC 4.63 Hgb 14.9 Hct 44.0 MCV 95.0 MCH 32.2 H MCHC 33.9 RDW Std Deviation 45.7 H RDW Coeff of Sakina 13.2 Plt Count 232 MPV 11.5 Immature Gran % (Auto) 0.500 Neut % (Auto) 59.2 Lymph % (Auto) 31.2 [place] % (Auto) 6.5 Eos % (Auto) 2.0 Baso % (Auto) 0.6 Absolute Neuts (auto) 5.7 Absolute Lymphs (auto) 3.01 Nucleated RBC % 0 Sodium 142 Potassium 3.6 Chloride 110 H Carbon Dioxide 27.0 Anion Gap 5 BUN 11 Creatinine 0.82 Estim Creat Clear Calc 72.42 Est GFR (MDRD) Af Amer 98 Est GFR (MDRD) Non-Af 81 BUN/Creatinine Ratio 13.5 Glucose 120 H Lactic Acid Calcium 9.4 Urine Color Yellow Urine Clarity Clear Urine pH 6.5 Ur Specific [place] 1.015 Urine Protein Negative Urine Glucose (UA) Normal Urine Ketones Negative Urine Occult Blood 10 H Urine Nitrite Negative Urine Bilirubin Negative Urine Urobilinogen Normal Ur Leukocyte Esterase Negative Urine RBC 0-5 SEEN Urine WBC 0 SEEN Ur Squamous Epith Cells 0-5 SEEN Urine Bacteria 0 SEEN Urine Mucus 0 SEEN 08/11/21 20:30 WBC RBC Hgb Hct MCV MCH MCHC RDW Std Deviation RDW Coeff of Sakina Plt Count MPV Immature Gran % (Auto) Neut % (Auto) Lymph % (Auto) [place] % (Auto) Eos % (Auto) Baso % (Auto) Absolute Neuts (auto) Absolute Lymphs (auto) Nucleated RBC % Sodium Potassium Chloride Carbon Dioxide Anion Gap BUN Creatinine Estim Creat Clear Calc Est GFR (MDRD) Af Amer Est GFR (MDRD) Non-Af BUN/Creatinine Ratio Glucose Lactic Acid 0.3 L Calcium Urine Color Urine Clarity Urine pH Ur Specific [place] Urine Protein Urine Glucose (UA) Urine Ketones Urine Occult Blood Urine Nitrite Urine Bilirubin Urine Urobilinogen Ur Leukocyte Esterase Urine RBC Urine WBC Ur Squamous Epith Cells Urine Bacteria Urine Mucus Discharge Plan Triage Chief Complaint: GI Bleed Other Complaint: Abd Pain ED Provider: Cosmo Richards Dx/Rx/DC Orders Clinical Impression: Bloody diarrhea, Acute ischemic colitis Instructions: Ischemic Colitis Prescriptions: New ciprofloxacin HCl [ciprofloxacin HCl] 500 MG tablet 500 mg PO BID Qty: 14 RF: 0 metronidazole 500 mg tablet 500 mg PO Q8H Qty: 21 RF: 0 hydrocodone-acetaminophen [hydrocodone-acetaminophen] 1 TABLET tablet 1 tab PO Q6H PRN PRN (Reason: Pain) 3 Days Qty: 10 RF: 0 No Action omeprazole 40 mg capsule,delayed release(DR/EC) 40 mg PO BID Qty: 90 RF: 1 ondansetron HCl [Zofran] 4 mg tablet 4 mg PO Q8H PRN (Reason: nausea and vomiting) Qty: 10 RF: 0 amlodipine 5 mg tablet 5 mg PO DAILY Qty: 30 RF: 1 sertraline 100 mg tablet 150 mg PO DAILY RF: 0 tumeric PO RF: 0 Vitamin C PO RF: 0 Vitamin D3 PO RF: 0 Zinc PO RF: 0 azithromycin 250 mg tablet 250 mg PO QDAY Qty: 6 RF: 0 acetaminophen 650 MG tablet extended release 650 mg PO Q4H PRN (Reason: PAIN/FEVER) RF: 0 Primary Care Provider: Neymar Mayo Referrals: Neymar Mayo MD [Primary Care Provider] - Activity Restrictions/Additional Instructions: Discontinue taking azithromycin if you still have any left. Disposition Disposition: Home, Self Care
[2021-08-11] MEDS: Morphine 4 MG/ML Syringe IV (19:35)
[2021-08-11] MEDS: Ciprofloxacin 400 MG/200 ML BAG 200 MG IV (19:35)
[2021-08-11] MEDS: 0.9% Normal Saline 1,000 ML 1000 ML IV (19:35)
[2021-08-11] MEDS: Ondansetron 4 MG/2 ML Vial IV ×2 (19:36→21:59)
[2021-08-11] MEDS: HYDROmorphone 0.5 MG/0.5 ML SYRINGE IV (20:28)
[2021-08-11] MEDS: metroNIDAZOLE 500 MG/100 ML BAG 100 MG IV (20:35)
[2021-08-11 21:00] LABS: Lactic Acid 0.3 mmol/L (0.4-1.9)
[2021-08-11 21:04] VITALS: BP 130/78
== END 2021-08-11 23:34 | disposition home or self-care (01) ==
PROVIDERS: Emergency Provider Emergency Medicine; PCP Internal Medicine
DX: K55.039 Acute (reversible) ischemia of large intestine, extent unspecified (principal); E66.9 Obesity, unspecified; Z68.32 Body mass index [BMI] 32.0-32.9, adult; K76.0 Fatty (change of) liver, not elsewhere classified; I10 Essential (primary) hypertension; M19.90 Unspecified osteoarthritis, unspecified site; M32.9 Systemic lupus erythematosus, unspecified; M79.7 Fibromyalgia; E07.9 Disorder of thyroid, unspecified; G43.909 Migraine, unspecified, not intractable, without status migrainosus; Z87.01 Personal history of pneumonia (recurrent); Z79.899 Other long term (current) drug therapy; F17.210 Nicotine dependence, cigarettes, uncomplicated
CPT/HCPCS: 74176; 80048; 81001; 83605; 85025; 96365; 96366; 96368; 96375; 96376; 99284; J7030; A4216; J0744; J2405

== ENCOUNTER 2021-08-12 17:06 | Emergency (ER) | payer OTHER, SELFPAY ==
[2021-08-12 17:08] VITALS: BP 140/90; PULSE 87; RESP 17; TEMP 36.2; O2SAT 98; BMI 32.3
--- NOTE | 2021-08-12 17:23 | CT_ITS ---
STUDY: CT Abdomen And Pelvis W/ Contrast Injection 08/12/2021 7:44 PM REASON FOR EXAM: Female, 46 years old. abdominal pain -- pain, distension, nausea/diarrhea. Prior hysterectomy, appendectomy, . TECHNIQUE: Transaxial images were obtained with oral contrast, and with IV Gastrografin and 100mL Isovue-300 intravenous contrast. Individualized dose optimization techniques were used for this CT. COMPARISON: CT done yesterday. FINDINGS: The visualized lung bases are unremarkable. The visualized portions of the heart are within normal limits. There is decreased attenuation of the liver consistent with steatosis. Normal gallbladder and extrahepatic biliary system. Normal spleen. Normal pancreas. There is hepatomegaly with diffuse hepatic enlargement. Normal bilateral adrenal glands. No acute findings of the right kidney. No acute findings of the left kidney. Esophageal wall thickening may suggest an esophagitis. Normal small intestine. Stool throughout the colon. There are surgical clips in the region of the appendix consistent with a prior appendectomy. There are no acute findings of the abdominal aorta. Normal inferior vena cava. Subcentimeter mesenteric lymph nodes. Normal urinary bladder. There is absence of the uterus consistent with a prior hysterectomy. Epigastric ventral hernia containing fat. Se 2 iM: 46. There is an umbilical hernia containing fat. Partially visualized disc herniation L5-S1. MRI can better evaluate. IMPRESSION: (NOT LISTED IN ORDER OF SIGNIFICANCE) Esophageal wall thickening may suggest an esophagitis. Fatty liver. Liver is enlarged. Partially visualized disc herniation L5-S1. MRI can better evaluate. Other findings as above. Electronically Signed: Zachariah Main MD at 19:48 EST , Service support , CT/Abdomen/Pelvis WITH Contrast
[2021-08-12 17:47] LABS: Absolute Lymphocyte Count 3.39 X10^3/uL (0.83-4.51); Absolute Neutrophil Count 3.3 X10^3/uL (2.0-7.7); Basophil# 0.06 X10^3/uL; Basophil% 0.8 % (0-1); Eosinophil# 0.21 X10^3/uL; Eosinophils% 2.7 % (0-5); Hematocrit 40.8 % (37-47); Hemoglobin 13.8 g/dL (12.0-15.0); Lymphocyte # 3.39 X10^3/ul (0.83-4.51); Lymphocyte % 44.1 % (19-41); Mean Corp Hgb Conc 33.8 g/dL (32-36); Mean Corpuscular Hgb 31.9 pg (27.0-32.0); Mean Corpuscular Volume 94.4 fL (81-99); Mean Platelet Vol. 11.4 fl (6.2-12.0); Monocyte# 0.66 X10^3/uL; Monocyte% 8.6 % (0-10); NRBC Flagged by Analyzer 0 % (0-5); Neutrophil # 3.34 X10^3/uL (2.7-7.7); Neutrophil % 43.4 % (47-70); Platelet Count 205 K/mm3 (150-450); RBC Distribution Width CV 13.2 % (11.6-14.6); Red Blood Count 4.32 M/mm3 (4.2-5.4); White Blood Count 7.7 K/mm3 (4.4-11.0)
[2021-08-12] MEDS: DiphenhydrAMINE 50 MG/ML Syringe IV (17:47)
[2021-08-12] MEDS: 0.9% Normal Saline 1,000 ML 999 ML IV (17:47)
[2021-08-12] MEDS: HYDROmorphone 1 MG/ML Syringe IV (17:48)
[2021-08-12] MEDS: Ondansetron 4 MG/2 ML Vial IV (17:49)
[2021-08-12] MEDS: MethylPREDNISolone 125 MG/2 ML Vial IV (17:58)
[2021-08-12 18:05] LABS: Erythrocyte Sedimentation Rate 15 mm/hr (0-30)
[2021-08-12 18:06] LABS: AST(SGOT) 30 U/L (15-37); Alanine Aminotransfer ALT/SGPT 60 U/L (13-56); Albumin, Serum 3.6 g/dL (3.2-5.0); Alkaline Phosphatase 80 U/L (45-117); Anion Gap 5 (5-15); BUN 8 mg/dL (7-18); BUN/Creat Ratio 11.7 RATIO (10-20); Bilirubin, Direct 0.07 mg/dL (0.00-0.30); CRP 4.44 mg/L (0.0-3.0); Chloride 111 mmol/L (98-107); Creatinine, Serum 0.68 mg/dL (0.55-1.02); EST Glomerular Filtration Rate 99 mL/min (>60); Est Glom Filt Rate - Afr Amer 120 mL/min (>60); Estimated Creatinine Clearance 87.33 ml/min; Globulin 3.6 g/dL (2.2-4.2); Glucose 81 mg/dL (74-106); LDH 198 U/L (84-246); Lipase 75 U/L (73-393); Potassium 3.8 mmol/L (3.5-5.1); Protein, Total 7.2 g/dL (6.4-8.2); Sodium Level 141 mmol/L (136-145)
[2021-08-12 18:16] LABS: Lactic Acid 0.6 mmol/L (0.4-1.9)
--- NOTE | 2021-08-12 19:40 | ED.VIS.GI ---
HPI HPI - GI History of Present Illness Chief Complaint: Abd Pain Narrative Narrative: 46-year-old female presenting with diffuse abdominal pain, bloating, diarrhea. She does admit to some blood in her stool. Patient states it started about 2 days ago. She was seen in the emergency room yesterday and had a normal work-up as far as lab work. She had a CT of the abdomen pelvis without contrast because of allergy to contrast dye and this did not show anything acute. Patient was scheduled to follow-up with Dr. Martino today and on his evaluation he felt she was very distended and she was having pain so they sent her back to the emergency room for repeat lab work and imaging. Patient has not had a fever, chills. She denies vaginal complaints or urinary complaints. She states that she has not had of much diarrhea today. She has not had any exotic foods. She does not drink from [place] or [place]. Nobody else in her household is sick. No history of inflammatory bowel disease. [facility] Medical History Acute otitis externa of both ears Arthritis Back problem Fibromyalgia GI problem Headache, migraine History of pneumonia Hypertension Liver disease Lupus Seasonal allergies Thyroid disease Home Medications acetaminophen 650 mg PO Q4H PRN 08/27/20 [History Last Taken Unknown] omeprazole 40 mg capsule,delayed release 40 mg PO BID #90 cap 12/19/20 [Rx Last Taken Unknown] ondansetron HCl 4 mg tablet 4 mg PO Q8H PRN #10 tab 03/17/21 [Rx Last Taken Unknown] amlodipine 5 mg tablet 5 mg PO DAILY #30 tab 06/26/21 [Rx Last Taken Unknown] Vitamin C PO 06/29/21 [History Last Taken Unknown] Vitamin D3 PO 06/29/21 [History Last Taken Unknown] Zinc PO 06/29/21 [History Last Taken Unknown] sertraline 100 mg tablet 150 mg PO DAILY tab 06/29/21 [History Last Taken Unknown] tumeric PO 06/29/21 [History Last Taken Unknown] azithromycin 250 mg tablet 250 mg PO QDAY #6 tab 07/08/21 [Rx Last Taken Unknown] ciprofloxacin HCl 500 mg PO BID #14 tablet 08/11/21 [Rx Last Taken Unknown] hydrocodone-acetaminophen 1 tab PO Q6H PRN PRN 3 Days #10 tablet 08/11/21 [Rx Last Taken Unknown] metronidazole 500 mg PO Q8H #21 tab 08/11/21 [Rx Last Taken Unknown] Allergy/AdvReac Type Severity Reaction Status Date / Time amoxicillin trihydrate Allergy Hives Verified 08/12/21 17:07 [From Augmentin] Iodinated Contrast Media Allergy Swelling Verified 08/12/21 17:07 [DYEE] nitrofurantoin Allergy Hives Verified 08/12/21 17:07 macrocrystalline [From Macrodantin] phenazopyridine Allergy Hives Verified 08/12/21 17:07 [From Pyridium] potassium clavulanate Allergy Hives Verified 08/12/21 17:07 [From Augmentin] sulfamethoxazole Allergy Hives Verified 08/12/21 17:07 [From Bactrim] trimethoprim [From Bactrim] Allergy Hives Verified 08/12/21 17:07 STERI-STRIPS Allergy Other Uncoded 08/12/21 17:07 Family History Father Alcoholism CVA (cerebral vascular accident) Mother Cancer Melanoma Grandfather Cancer Grandmother Cancer Other Arthritis Autoimmune disorder Breast cancer Colon cancer Depression Heart disease Hypertension Liver disease Myocardial infarction Ovarian cancer Psychiatric care Thyroid disorder Uterine cancer ulcer disease Surgical History History of tonsillectomy Hx of section Hx of hernia repair Hx of hysterectomy Social History household members: none Smoking Status: Current every day smoker tobacco type: cigarettes alcohol intake: never substance use type: marijuana ROS ROS ED Constitutional Constitutional ED: Denies chills or fever(s) ENT ENT ED: Denies rhinorrhea or sore throat Cardiovascular Cardiovascular: Denies chest pain or palpitations Respiratory/Chest Respiratory/Chest: Denies cough, dyspnea or sputum Gastrointestinal Gastrointestinal: Reports abdominal pain, diarrhea and nausea Genitourinary Genitourinary ED: Denies dysuria or hematuria Musculoskeletal Musculoskeletal: Denies arthralgias or myalgias Integumentary Denies rash Neurologic Neurologic: Denies headache(s) or paresthesias Psychiatric Psychiatric: Denies anxiety or depression EXAM Physical Exam Const Vital Signs: 12/15/21 17:08 Temperature 97.1 F L Temperature Source Temporal Pulse Rate 87 Respiratory Rate 17 Blood Pressure 140/90 H Blood Pressure Mean 106 Pulse Ox 98 Oxygen Delivery Method Room Air Positive well nourished General Appearance ED: NAD; Negative for pallor HEENT Reports moist mucous membranes normocephalic Eyes PERRL General Eye ED: Yes pale conjunctiva Neck supple Resp normal respiratory effort and clear to auscultation bilaterally Cardio regular rate and regular rhythm GI GI Narrative: Abdomen is mildly distended. No focal tenderness. No fluid wave. Back/Spine no CVA tenderness Neuro Sensorium / Orientation: alert, oriented to person, oriented to place and oriented to time Psych mental status grossly normal and thought process normal Skin General Skin Exam: Negative for jaundice or pallor MDM MDM MDM Narrative Medical decision making narrative: After speaking with Dr. Martino I did repeat lab work. Her CBC still shows no leukocytosis with a white blood cell count of 7.7. Hemoglobin is 13.8. It was 14.9 yesterday. Patient does state that she has had some follow-up blood in her stool. Renal function is normal. Electrolytes are normal. Lactic acid is -0.6. I added on inflammatory markers for Dr. Martino and it is noted that her ESR is normal at 15, CRP is mildly elevated at 4.44, LDH is 198 and therefore normal. As far as her LFTs her AST is mildly elevated at 60 with a normal cutoff of 56. Patient was given Dilaudid for pain and Zofran for nausea. Patient was medicated with Solu-Medrol and Benadryl due to her allergy of hives to contrast dye. Patient has CT of the abdomen pelvis with p.o. and IV contrast and this does not is identify any acute intra-abdominal process other than may be esophagitis. It does identify disc herniation L5-S1 however patient has no cauda equina symptoms. She is able to urinate and defecate. She has no saddle anesthesia. I discussed the case with Dr. Martino after full work-up and he recommended having her follow-up for upper endoscopy and colonoscopy. Patient requests a work note because she does not feel well enough to go back to work. This was provided. Impression: #1. Abdominal pain Lab Data Labs: Laboratory Results - last 24 hr 08/12/21 08/12/21 08/12/21 17:30 17:30 17:30 WBC 7.7 RBC 4.32 Hgb 13.8 Hct 40.8 MCV 94.4 MCH 31.9 MCHC 33.8 RDW Std Deviation 46.0 H RDW Coeff of Sakina 13.2 Plt Count 205 MPV 11.4 Immature Gran % (Auto) 0.400 Neut % (Auto) 43.4 L Lymph % (Auto) 44.1 H [place] % (Auto) 8.6 Eos % (Auto) 2.7 Baso % (Auto) 0.8 Absolute Neuts (auto) 3.3 Absolute Lymphs (auto) 3.39 Nucleated RBC % 0 ESR 15 Sodium 141 Potassium 3.8 Chloride 111 H Carbon Dioxide 25.0 Anion Gap 5 BUN 8 Creatinine 0.68 Estim Creat Clear Calc 87.33 Est GFR (MDRD) Af Amer 120 Est GFR (MDRD) Non-Af 99 BUN/Creatinine Ratio 11.7 Glucose 81 Lactic Acid 0.6 Calcium 9.0 Total Bilirubin 0.20 Direct Bilirubin 0.07 AST 30 ALT 60 H Alkaline Phosphatase 80 Lactate Dehydrogenase 198 C-React Prot Ext Range 4.44 H Total Protein 7.2 Albumin 3.6 Globulin 3.6 Lipase 75 Radiography Diagnostic Testing: Clinical Impression(s) from Imaging Studies Abdomen/Pelvis CT 08/12/21 17:23 Discharge Plan Triage Chief Complaint: Abd Pain ED Provider: Emerson Haney Dx/Rx/DC Orders Instructions: ED Abdominal Pain Unkn Cause Fem Prescriptions: No Action omeprazole 40 mg capsule,delayed release(DR/EC) 40 mg PO BID Qty: 90 RF: 1 ondansetron HCl [Zofran] 4 mg tablet 4 mg PO Q8H PRN (Reason: nausea and vomiting) Qty: 10 RF: 0 amlodipine 5 mg tablet 5 mg PO DAILY Qty: 30 RF: 1 sertraline 100 mg tablet 150 mg PO DAILY RF: 0 tumeric PO RF: 0 Vitamin C PO RF: 0 Vitamin D3 PO RF: 0 Zinc PO RF: 0 azithromycin 250 mg tablet 250 mg PO QDAY Qty: 6 RF: 0 acetaminophen 650 MG tablet extended release 650 mg PO Q4H PRN (Reason: PAIN/FEVER) RF: 0 ciprofloxacin HCl [ciprofloxacin HCl] 500 MG tablet 500 mg PO BID Qty: 14 RF: 0 metronidazole 500 mg tablet 500 mg PO Q8H Qty: 21 RF: 0 hydrocodone-acetaminophen [hydrocodone-acetaminophen] 1 TABLET tablet 1 tab PO Q6H PRN PRN (Reason: Pain) 3 Days Qty: 10 RF: 0 Stand Alone Forms: ED Work / School Excuse Primary Care Provider: Neymar Mayo Referrals: Neymar Mayo MD [Primary Care Provider] - Friend,DO Tushar [STAFF PHYSICIAN] - As soon as possible Disposition Disposition: Home, Self Care
== END 2021-08-12 20:22 | disposition home or self-care (01) ==
PROVIDERS: Student in an Organized Health Care Education/Training Program; PCP Internal Medicine
DX: R10.84 Generalized abdominal pain (principal); R14.0 Abdominal distension (gaseous); R19.7 Diarrhea, unspecified; M79.7 Fibromyalgia; I10 Essential (primary) hypertension; E07.9 Disorder of thyroid, unspecified; K76.0 Fatty (change of) liver, not elsewhere classified; M32.9 Systemic lupus erythematosus, unspecified; G43.909 Migraine, unspecified, not intractable, without status migrainosus; Z87.01 Personal history of pneumonia (recurrent); Z79.899 Other long term (current) drug therapy; F17.210 Nicotine dependence, cigarettes, uncomplicated
CPT/HCPCS: 74177; 80048; 80076; 83605; 83615; 83690; 85025; 85652; 86140; 96361; 96374; 96375; 99283; J7030; Q9967; A4216; J2405

== ENCOUNTER 2021-09-10 12:02 | Emergency (ER) | payer OTHER, MEDICAID, SELFPAY ==
[2021-09-10 12:02] VITALS: BP 132/93; PULSE 102; RESP 16; TEMP 36.6; O2SAT 100; BMI 32.8
--- NOTE | 2021-09-10 12:27 | EDS_ITS ---
HPI HPI - GI History of Present Illness Chief Complaint: Abd Pain Informant: patient Abdominal Pain/Flank Pain Onset: Days Context: Gradual Onset Timing: Continuous Quality: Stabbing Location: RUQ Worsened by: Nothing Relieved by: Nothing Nausea/Vomiting/Emesis GI Symptom: Positive for Nausea; Negative for Vomiting Diarrhea/Melena/Hematochezia GI Symptom: Positive for Diarrhea Associated Symptoms Associated Symptoms: Negative for Dysuria and Hematuria Narrative Narrative: Patient presents with right upper quadrant abdominal pain that has been getting worse over the past couple days. Patient states it is constant. Patient describes the pain as stabbing. Patient states nothing makes it worse and nothing makes it better. Patient admits to some nausea but denies any vomiting. Patient admits to some diarrhea. Patient denies any dysuria or hematuria. Patient admits to some subjective chills but denies any fevers. Patient does admit to some mild shortness of breath because of the pain. [facility] Medical History Acute otitis externa of both ears Arthritis Back problem Fibromyalgia GI problem Headache, migraine History of pneumonia Hypertension Liver disease Lupus POWELL (nonalcoholic steatohepatitis) Seasonal allergies Thyroid disease Home Medications acetaminophen 650 mg PO Q4H PRN 08/27/20 [History Last Taken Unknown] omeprazole 40 mg capsule,delayed release 40 mg PO BID #90 cap 12/19/20 [Rx Last Taken Unknown] ondansetron HCl 4 mg tablet 4 mg PO Q8H PRN #10 tab 03/17/21 [Rx Last Taken Unknown] Vitamin C PO 06/29/21 [History Last Taken Unknown] Vitamin D3 PO 06/29/21 [History Last Taken Unknown] Zinc PO 06/29/21 [History Last Taken Unknown] sertraline 100 mg tablet 150 mg PO DAILY tab 06/29/21 [History Last Taken Unknown] tumeric PO 06/29/21 [History Last Taken Unknown] hydrocodone-acetaminophen 1 tab PO Q6H PRN PRN 3 Days #10 tablet 08/11/21 [Rx Last Taken Unknown] bisacodyl 5 mg tablet,delayed release 5 mg PO ONCE #4 tab 08/25/21 [Rx Last Taken Unknown] polyethylene glycol 3350 17 gram/dose oral powder 17 g PO DAILY #238 g 08/25/21 [Rx Last Taken Unknown] colestipol 1 gram tablet 1 g PO ONCE #60 tab 09/09/21 [Rx Last Taken Unknown] dicyclomine 20 mg tablet 20 mg PO TID #90 tab 09/09/21 [Rx Last Taken Unknown] tramadol 50 mg tablet 50 mg PO Q8H PRN #30 tab 09/09/21 [Rx Last Taken Unknown] hydrocodone-acetaminophen 1 tab PO Q6H PRN PRN 3 Days #10 tablet 09/10/21 [Rx Last Taken Unknown] Allergy/AdvReac Type Severity Reaction Status Date / Time amoxicillin trihydrate Allergy Hives Verified 09/10/21 12:04 [From Augmentin] Iodinated Contrast Media Allergy Swelling Verified 09/10/21 12:04 [DYEE] nitrofurantoin Allergy Hives Verified 09/10/21 12:04 macrocrystalline [From Macrodantin] phenazopyridine Allergy Hives Verified 09/10/21 12:04 [From Pyridium] potassium clavulanate Allergy Hives Verified 09/10/21 12:04 [From Augmentin] sulfamethoxazole Allergy Hives Verified 09/10/21 12:04 [From Bactrim] trimethoprim [From Bactrim] Allergy Hives Verified 09/10/21 12:04 STERI-STRIPS Allergy Other Uncoded 09/10/21 12:04 Family History Father Alcoholism CVA (cerebral vascular accident) Mother Cancer Melanoma Grandfather Cancer Grandmother Cancer Other Arthritis Autoimmune disorder Breast cancer Colon cancer Depression Heart disease Hypertension Liver disease Myocardial infarction Ovarian cancer Psychiatric care Thyroid disorder Uterine cancer ulcer disease Surgical History History of tonsillectomy Hx of section Hx of hernia repair Hx of hysterectomy Social History household members: none Smoking Status: Current every day smoker tobacco type: cigarettes alcohol intake: never substance use type: marijuana ROS ROS ED Constitutional Constitutional ED: Reports chills; Denies fever(s) Eyes Eyes: Denies blurry vision or change in vision ENT ENT ED: Denies rhinorrhea or sore throat Cardiovascular Cardiovascular: Denies chest pain or palpitations Respiratory/Chest Respiratory/Chest: Reports dyspnea; Denies cough Gastrointestinal Gastrointestinal: Reports abdominal pain, diarrhea and nausea; Denies vomiting Genitourinary Genitourinary ED: Denies dysuria or hematuria Musculoskeletal Musculoskeletal: Reports neck pain; Denies back pain Integumentary Denies abscess or rash Neurologic Neurologic: Reports headache(s); Denies weakness Allergic/Immunologic Allergic/Immunologic ED: Denies mouth swelling or urticaria EXAM Physical Exam Const Vital Signs: 09/10/21 12:02 09/10/21 14:57 Temperature 97.8 F Temperature Source Temporal Pulse Rate 102 H 78 Respiratory Rate 16 14 Blood Pressure 132/93 H 120/70 Blood Pressure Mean 106 Pulse Ox 100 99 Oxygen Delivery Method Room Air Positive well nourished, well developed and obese General Appearance ED: well developed Nutritional Appearance: obese HEENT Reports moist mucous membranes Neck supple and no JVD Resp normal respiratory effort and clear to auscultation bilaterally Cardio regular rate, regular rhythm and no murmurs GI normal to inspection, nondistended, normoactive bowel sounds Auscultation: normoactive bowel sounds Palpation: soft and tender RUQ; Negative for guarding or rebound tenderness present Extremity normal to inspection General Extremety ED: Negative for edema or tenderness General Extremity: Negative for edema Neuro oriented x3, CN's II-XII intact bilaterally, moves all extremities and no sensory deficits noted Sensorium / Orientation: alert Motor Exam: strength 5/5 throughout Psych mental status grossly normal Skin no rashes or lesions noted MDM MDM MDM Narrative Medical decision making narrative: Patient was given IV fluids, morphine, and Zofran. CBC was within normal limits. Comprehensive metabolic profile was within normal limits. Lipase was normal. Urinalysis does not show any evidence of urinary tract infection. Since the patient's lab work is all within normal limits, I do not feel repeat imaging is necessary at this time. Patient was given a repeat dose of Dilaudid. Patient was given a prescription for [place]. Patient was instructed to follow-up with her primary care physician and assistant to the president as scheduled. Patient understood and was agreeable with the plan. All questions were answered. Lab Data Attestation: I reviewed the patient's lab results. Labs: Laboratory Results - last 24 hr 09/10/21 09/10/21 09/10/21 12:35 12:35 12:45 WBC 6.7 RBC 4.43 Hgb 13.8 Hct 41.6 MCV 93.9 MCH 31.2 MCHC 33.2 RDW Std Deviation 42.9 RDW Coeff of Sakina 12.3 Plt Count 233 MPV 11.3 Immature Gran % (Auto) 0.300 Neut % (Auto) 49.7 Lymph % (Auto) 40.7 Jay % (Auto) 6.1 Eos % (Auto) 2.2 Baso % (Auto) 1.0 Absolute Neuts (auto) 3.4 Absolute Lymphs (auto) 2.74 Nucleated RBC % 0 Sodium 140 Potassium 3.8 Chloride 109 H Carbon Dioxide 26.0 Anion Gap 5 BUN 10 Creatinine 0.81 Estim Creat Clear Calc 73.32 Est GFR (MDRD) Af Amer 99 Est GFR (MDRD) Non-Af 82 BUN/Creatinine Ratio 12.4 Glucose 114 H Calcium 9.3 Total Bilirubin 0.40 AST 40 H ALT 86 H Alkaline Phosphatase 87 Total Protein 7.2 Albumin 3.8 Globulin 3.4 Albumin/Globulin Ratio 1.1 Lipase 57 L Urine Color Yellow Urine Clarity Clear Urine pH 5.0 Ur Specific [place] 1.010 Urine Protein Negative Urine Glucose (UA) Normal Urine Ketones Negative Urine Occult Blood Negative Urine Nitrite Negative Urine Bilirubin Negative Urine Urobilinogen Normal Ur Leukocyte Esterase 25 H Urine RBC 0 SEEN Urine WBC 0 SEEN Ur Squamous Epith Cells 0 SEEN Urine Bacteria 0 SEEN Urine Mucus 0 SEEN Discharge Plan Triage Chief Complaint: Abd Pain ED Provider: Dawin Bazzi Dx/Rx/DC Orders Clinical Impression: Abdominal pain, POWELL (nonalcoholic steatohepatitis) Instructions: ED Abdominal Pain Unkn Cause Fem Prescriptions: New hydrocodone-acetaminophen [hydrocodone-acetaminophen] 1 TABLET tablet 1 tab PO Q6H PRN PRN (Reason: Pain) 3 Days Qty: 10 RF: 0 No Action omeprazole 40 mg capsule,delayed release(DR/EC) 40 mg PO BID Qty: 90 RF: 1 ondansetron HCl [Zofran] 4 mg tablet 4 mg PO Q8H PRN (Reason: nausea and vomiting) Qty: 10 RF: 0 sertraline 100 mg tablet 150 mg PO DAILY RF: 0 tumeric PO RF: 0 Vitamin C PO RF: 0 Vitamin D3 PO RF: 0 Zinc PO RF: 0 dicyclomine 20 mg tablet 20 mg PO TID Qty: 90 RF: 0 tramadol 50 mg tablet 50 mg PO Q8H PRN (Reason: pain) Qty: 30 RF: 0 colestipol 1 gram tablet 1 g PO ONCE Qty: 60 RF: 0 acetaminophen 650 MG tablet extended release 650 mg PO Q4H PRN (Reason: PAIN/FEVER) RF: 0 hydrocodone-acetaminophen [hydrocodone-acetaminophen] 1 TABLET tablet 1 tab PO Q6H PRN PRN (Reason: Pain) 3 Days Qty: 10 RF: 0 bisacodyl 5 mg tablet,delayed release (DR/EC) 5 mg PO ONCE Qty: 4 RF: 0 polyethylene glycol 3350 [Miralax] 17 gram/dose powder 17 g PO DAILY Qty: 238 RF: 0 Primary Care Provider: Neymar Mayo Referrals: Neymar Mayo MD [Primary Care Provider] - 3-5 Days Tushar Martino DO [STAFF PHYSICIAN] - Keep Daniela appointment Disposition Disposition: Home, Self Care Discharge Date/Time: 09/10/21 14:58
[2021-09-10 12:43] LABS: Absolute Lymphocyte Count 2.74 X10^3/uL (0.83-4.51); Absolute Neutrophil Count 3.4 X10^3/uL (2.0-7.7); Basophil# 0.07 X10^3/uL; Eosinophil# 0.15 X10^3/uL; Eosinophils% 2.2 % (0-5); Hematocrit 41.6 % (37-47); Hemoglobin 13.8 g/dL (12.0-15.0); Lymphocyte # 2.74 X10^3/ul (0.83-4.51); Lymphocyte % 40.7 % (19-41); Mean Corp Hgb Conc 33.2 g/dL (32-36); Mean Corpuscular Hgb 31.2 pg (27.0-32.0); Mean Corpuscular Volume 93.9 fL (81-99); Mean Platelet Vol. 11.3 fl (6.2-12.0); Monocyte# 0.41 X10^3/uL; Monocyte% 6.1 % (0-10); NRBC Flagged by Analyzer 0 % (0-5); Neutrophil # 3.35 X10^3/uL (2.7-7.7); Neutrophil % 49.7 % (47-70); Platelet Count 233 K/mm3 (150-450); RBC Distribution Width CV 12.3 % (11.6-14.6); RBC Distribution Width SD 42.9 fl (35.1-43.9); Red Blood Count 4.43 M/mm3 (4.2-5.4); White Blood Count 6.7 K/mm3 (4.4-11.0)
[2021-09-10] MEDS: Morphine 4 MG/ML Syringe IV (12:43)
[2021-09-10] MEDS: 0.9% Normal Saline 1,000 ML 1000 ML IV (12:43)
[2021-09-10] MEDS: Ondansetron 4 MG/2 ML Vial IV (12:44)
[2021-09-10 12:57] LABS: ALB/GLOB Ratio 1.1 RATIO (0.9-2.4); AST(SGOT) 40 U/L (15-37); Alanine Aminotransfer ALT/SGPT 86 U/L (13-56); Albumin, Serum 3.8 g/dL (3.2-5.0); Alkaline Phosphatase 87 U/L (45-117); Anion Gap 5 (5-15); BUN 10 mg/dL (7-18); BUN/Creat Ratio 12.4 RATIO (10-20); Calcium,Total 9.3 mg/dL (8.5-10.1); Chloride 109 mmol/L (98-107); Creatinine, Serum 0.81 mg/dL (0.55-1.02); EST Glomerular Filtration Rate 82 mL/min (>60); Est Glom Filt Rate - Afr Amer 99 mL/min (>60); Estimated Creatinine Clearance 73.32 ml/min; Globulin 3.4 g/dL (2.2-4.2); Glucose 114 mg/dL (74-106); Lipase 57 U/L (73-393); Potassium 3.8 mmol/L (3.5-5.1); Protein, Total 7.2 g/dL (6.4-8.2); Sodium Level 140 mmol/L (136-145)
[2021-09-10 13:01] LABS: Bacteria 0 SEEN /hpf (None Seen); Mucous, Urine 0 SEEN /hpf (<or=2+); Red Blood Cells-Urine 0 SEEN /hpf (0-5); Squamous Epithelial Cells - UA 0 SEEN /hpf (5-10); White Blood Cells 0 SEEN /hpf (0-5)
[2021-09-10 13:13] LABS: Color, Urine Yellow (Yellow); Glucose, Dipstick Normal (Normal); Ketone-Dipstick Negative (Negative); Leukocyte Esterase-Dipstick 25 /ul (Negative); Nitrite-Dipstick Negative (Negative); Occult Blood-Urine Negative /ul (Negative); Protein-Dipstick Negative (Negative); Urine Bilirubin Dipstick Negative (Negative); Urine Clarity Clear (Clear); Urine Urobilinogen Normal (Normal)
[2021-09-10] MEDS: HYDROmorphone 1 MG/ML Syringe 0.5 MG IV (14:52)
[2021-09-10 14:57] VITALS: BP 120/70; PULSE 78; RESP 14; O2SAT 99
== END 2021-09-10 14:58 | disposition home or self-care (01) ==
PROVIDERS: Emergency Provider Emergency Medicine; PCP Internal Medicine; Visit Provider Emergency Medicine
DX: R10.11 Right upper quadrant pain (principal); K75.81 Nonalcoholic steatohepatitis (NASH); F12.10 Cannabis abuse, uncomplicated; E66.9 Obesity, unspecified; I10 Essential (primary) hypertension; Z79.899 Other long term (current) drug therapy
CPT/HCPCS: 80053; 81001; 83690; 85025; 96361; 96374; 96375; 99284; J7030; A4216; J2405

== ENCOUNTER 2021-09-28 08:10 | Outpatient (CLI) | payer OTHER, MEDICAID, SELFPAY ==
[2021-09-28] VITALS (8 sets, daily range): BP systolic 105–121; BP diastolic 67–91; PULSE 74–92; RESP 12–22; TEMP 36.3; O2SAT 92–100; BMI 30.9
--- NOTE | 2021-09-28 08:11 | CT_ITS ---
PROCEDURE: CT DIRECTED CORE LIVER BIOPSY INDICATION: Female, 46 years old. Staging for cirrhosis. PHYSICIAN: CONSENT: Written informed consent was obtained having explained the risks, benefits and alternatives in detail with the patient who accepted the risks and agreed to proceed. Laboratory review and clinical assessment was performed. CONSCIOUS SEDATION PROTOCOL: The Drugs used were: 3 mg Versed, IV., and 100 mcg Fentanyl, IV. The sedation time was: 19 minutes. Conscious sedation was started on 9:21 AM and terminated at 940 The conscious sedation protocol was independently monitored. RADIATION DOSAGE (If Supplied By Facility): CTDIvol = ( 17 ) mGy, DLP = ( 315.42 ) mGycm Individualized dose optimization techniques were used for this CT. TECHNIQUE: Using CT image guidance with image documentation, a suitable location in the right lobe of the liver was identified. Using an anterior approach, puncture of the liver was uneventful with an 18-gauge core needle system. 3, 18-gauge core samples were obtained, and submitted in formalin to the pathologist for further assessment. Followup CT scan revealed no distinct sequelae. CT/Biopsy/Inj or Needle Placement IMPRESSION: 1. CT directed core needle biopsy of the liver, using CT image guidance with image documentation as described. 2. Conscious Sedation protocol utilized with independent monitoring. Electronically Signed: Joe Guaman MD at 10:06 [facility] ,
[2021-09-28 08:33] LABS: Platelet Count 249 K/mm3 (150-450)
[2021-09-28 08:39] LABS: Prothrombin Time (Protime)PT. 12.1 SECONDS (11.7-14.9)
[2021-09-28 08:40] LABS: Partial Thromboplast Time 32.5 Seconds (24.1-36.2)
[2021-09-28] MEDS: fentaNYL 100 MCG/2 ML Ampul IV ×3 (09:20→09:45)
[2021-09-28] MEDS: Midazolam 2 MG/2 ML Syringe IV ×2 (09:21→09:36)
[2021-09-28] MEDS: Lidocaine 2% (20 ml mdv) 20 ML Vial INFILT (09:28)
--- NOTE | 2021-09-28 09:35 | LIVB_PTH ---
PATIENT: FELIX ARITA LOC: CT U#:[id number] AGE/SX: 46/F ROOM: RE09/28/[address]: Dr. Tushar Martino DO : 1975 BED: DIS: 09/28/2021 SPEC #: [id number] RECD: 09/28/21 10:32 STATUS: CRISTHIAN REKhanh #: [id number] HERNÁN: 09/28/21 09:[address]: Tushar Martino DEPT: SURGICAL PATHOLOGY RECD BY: Enriqueta Acosta ENTERED: 09/28/21 10:50 SP TYPE: LIVER BX RHEA DR: Dr. Neymar Mayo MD Tissues: Liver, NOS Procedures: PAS with Diastase (control) Trichrome (control) Special Stain Group II PAS Stain (control) Surgery Specimen Level V Retic (control) Iron Stain (control) HEADER OPERATION: CT-guided liver biopsy PRE-OP DIAGNOSIS: Staging/POWELL TISSUE SUBMITTED: Liver 18-gauge x3 MICROSCOPIC DIAGNOSIS Liver, CT-guided core biopsy: Consistent with chronic steatohepatitis. See comment. AM:[email or web address] 09/29/2021 COMMENT Sections show microvesicular and macrovesicular steatosis. Chronic inflammation is mainly confined to portal areas with focal minimal lobular involvement. Trichrome stain with matched control does not reveal fibrosis or cirrhosis. Trichrome uptake is limited to portal areas. Iron stain with matched control does not reveal accumulation of iron in hepatic parenchyma. PAS stain with and without diastase does not reveal accumulation of abnormal proteins. The findings are consistent with chronic hepatitis, grade 1, stage 1 (modified Knodell scoring system for hepatitis). Clinical correlation is suggested. MICROSCOPIC DESCRIPTION Slides are reviewed. GROSS DESCRIPTION Received in fixative is one container labeled with the patient's name and designated liver. The specimen consists of three elongated fragments of waite soft tissue each measuring 2 cm in length and 0.1 cm in diameter. The specimen is totally submitted in one cassette. / SJ:jesus 09/28/2021 TC:3 CPT: 71618, 79576 x5
== END 2021-09-28 23:59 | disposition home or self-care (01) ==
PROVIDERS: PCP Internal Medicine; Referring Provider Internal Medicine Gastroenterology; Visit Provider Internal Medicine Gastroenterology
DX: K75.81 Nonalcoholic steatohepatitis (NASH) (principal); M19.90 Unspecified osteoarthritis, unspecified site; M79.7 Fibromyalgia; I10 Essential (primary) hypertension; Z79.899 Other long term (current) drug therapy; Z87.01 Personal history of pneumonia (recurrent); F17.210 Nicotine dependence, cigarettes, uncomplicated
CPT/HCPCS: 47000; 36415; 77012; 85049; 85610; 85730; 88307; 88313; 99156; J7040; A4216

== ENCOUNTER 2021-12-29 21:03 | Emergency (ER) | payer OTHER, MEDICAID, SELFPAY ==
[2021-12-29 21:03] VITALS: BP 150/90; PULSE 90; RESP 18; TEMP 36.6; O2SAT 99; BMI 30.9
--- NOTE | 2021-12-29 21:12 | EDS_ITS ---
HPI History of Present Illness Chief Complaint: Dental Detail of Chief Complaint: Pain due to broken tooth Informant: patient Onset/Context/Timing Onset: Yesterday Context: Sudden Onset Timing: Continuous and Waxes and wanes Quality: Pain Location: Tooth #29 Current Severity: Moderate Maximum Severity: Severe Worsened by: Air, cold and showing Relieved by: NSAIDs and Topicals Associated Symptoms Assocated Symptom - Dental: cold sensitivity; Negative for fever, jaw swelling, face swelling or hot sensitivity Narrative Narrative: Patient is a 46-year-old woman who presents with dental pain after her tooth broke yesterday. She does not have a dentist. She denies fever, chills or night sweats. She states she is sweaty. She denies history of medic fever, heart murmur, SBE or being immune suppressed. Patient denies allergy to penicillin or amoxicillin. Patient denies rash. She denies ocular, visual or auditory symptoms. She denies difficulty opening closing her mouth. She denies change in voice. She denies drooling. She has not noted a rash. Prior similar symptoms: No Recent Illness/Hospitalization: No PFSH PFS Medical History Acute otitis externa of both ears Acute otitis media, left Arthritis Back problem Cervical radiculopathy Contact dermatitis Depression Easy bruising Fatty liver Fibromyalgia Gastric reflux GI problem Headache, migraine High cholesterol History of pneumonia Hypertension Injury of back Left shoulder pain Left shoulder tendinitis Liver disease Lupus POWELL (nonalcoholic steatohepatitis) Open wound Restless legs Seasonal allergies Smoker Thyroid disease Home Medications omeprazole 40 mg capsule,delayed release 40 mg PO BID #90 cap 12/19/20 [Rx Last Taken Unknown] Vitamin C 500 mg PO DAILY 06/29/21 [History Last Taken Unknown] Vitamin D3 4,000 iu PO DAILY 06/29/21 [History Last Taken Unknown] Zinc 50 mg PO DAILY 06/29/21 [History Last Taken Unknown] tumeric 1 ea PO DAILY 06/29/21 [History Last Taken Unknown] bisacodyl 5 mg tablet,delayed release 5 mg PO ONCE #4 tab 08/25/21 [Rx Last Taken Unknown] polyethylene glycol 3350 17 gram/dose oral powder 17 g PO DAILY #238 g 08/25/21 [Rx Last Taken Unknown] prednisone 10 mg tablet 10 mg PO DAILY #30 tab 11/04/21 [Rx Last Taken Unknown] colestipol 1 gram tablet 1 g PO BID #90 tab 11/11/21 [Rx Last Taken Unknown] hydrocortisone acetate 30 mg rectal suppository 30 mg UT BID PRN #12 ea 11/11/21 [Rx Last Taken Unknown] sertraline 100 mg tablet 150 mg PO DAILY #90 tab 11/19/21 [Rx Last Taken Unknow n] hyoscyamine sulfate 0.125 mg disintegrating tablet 0.125 mg PO BID-QID #60 tab 12/04/21 [Rx Last Taken Unknown] scopolamine base 1 mg over 3 days transdermal patch 1 patch TRANSDERMAL Q3D PRN #10 ea 12/04/21 [Rx Last Taken Unknown] sucralfate 100 mg/mL oral suspension 10 ml PO BID 28 Days #560 ml 12/04/21 [Rx Last Taken Unknown] amoxicillin 500 mg PO TID #30 tab 12/29/21 [Rx Last Taken Unknown] hydrocodone-acetaminophen 1 tab PO Q6H PRN PRN 3 Days #10 tablet 12/29/21 [Rx Last Taken Unknown] naproxen 500 mg PO BID #14 tab 12/29/21 [Rx Last Taken Unknown] Allergy/AdvReac Type Severity Reaction Status Date / Time amoxicillin trihydrate Allergy Hives Verified 12/29/21 21:05 [From Augmentin] Iodinated Contrast Media Allergy Swelling Verified 12/29/21 21:05 [DYEE] nitrofurantoin Allergy Hives Verified 12/29/21 21:05 macrocrystalline [From Macrodantin] phenazopyridine Allergy Hives Verified 12/29/21 21:05 [From Pyridium] potassium clavulanate Allergy Hives Verified 12/29/21 21:05 [From Augmentin] sulfamethoxazole Allergy Hives Verified 12/29/21 21:05 [From Bactrim] trimethoprim [From Bactrim] Allergy Hives Verified 12/29/21 21:05 STERI-STRIPS Allergy Other Uncoded 12/29/21 21:05 Family History Father Alcoholism CVA (cerebral vascular accident) Mother Cancer Melanoma Grandfather Cancer Grandmother Cancer Other Arthritis Autoimmune disorder Breast cancer Colon cancer Depression Heart disease Hypertension Liver disease Myocardial infarction Ovarian cancer Psychiatric care Thyroid disorder Uterine cancer ulcer disease Surgical History History of tonsillectomy Hx of section Hx of hernia repair Hx of hysterectomy Social History household members: none Smoking Status: Current every day smoker tobacco type: cigarettes alcohol intake: never substance use type: marijuana ROS ROS ED Constitutional Constitutional ED: Reports sweats; Denies chills, fever(s), subjective or weight loss Eyes Eyes: Denies blurry vision or change in vision ENT ENT ED: Reports other Details: Tooth pain due to fractured tooth, #29 ; Denies ear pain, rhinorrhea or sore throat Cardiovascular Cardiovascular: Denies chest pain or palpitations Respiratory/Chest Respiratory/Chest: Denies cough, dyspnea or dyspnea on exertion Gastrointestinal Gastrointestinal: Reports nausea; Denies vomiting Hematologic/Lymphatic Hematologic/Lymphatic: Denies easy bleeding or easy bruising Allergic/Immunologic Allergic/Immunologic ED: Denies mouth swelling, tongue swelling or urticaria EXAM Physical Exam Const Vital Signs: 12/29/21 21:03 Temperature 97.9 F Temperature Source Temporal Pulse Rate 90 Respiratory Rate 18 Blood Pressure 150/90 H Blood Pressure Mean 110 Pulse Ox 99 Oxygen Delivery Method Room Air Positive well nourished and well developed General Appearance ED: well developed; Negative for NAD, pallor or other HEENT Reports TM's clear Negative for trauma or tenderness Face and Sinus: sinuses nontender Tympanic Membrane ED: Yes TM's clear Mouth ED: Yes oral and palatal mucosa normal, Yes lips normal, Yes tongue normal, Yes salivary gland normal, No mouth trauma and No oral and palatal mucosa abnormal Mouth: oral and palatal mucosa normal, lips normal, tongue normal, salivary gland normal, No mouth trauma and No oral and palatal mucosa abnormal Teeth and Gingiva: abnormal tooth and associated gingiva, caries, gingiva abnormal, poor dentition and teeth discoloration Throat: posterior oropharynx normal Eyes PERRL and EOMs intact bilaterally General Eye ED: Negative for pale conjunctiva or scleral icterus Neck no lymphadenopathy, supple and no JVD Neck Narrative: Trachea is midline. There is no in-store expiratory stridor. General: normal visual inspection; Negative for anterior neck swelling Chest Wall inspection of chest normal and palpation of chest normal Resp normal respiratory effort and clear to auscultation bilaterally Cardio regular rate, regular rhythm, S1 normal heart sound, S2 normal heart sound and no murmurs Neuro oriented x3 and CN's II-XII intact bilaterally Sensorium / Orientation: alert Psych mental status grossly normal Skin no rashes or lesions noted and no wounds General Skin Exam: Negative for pallor MDM MDM MDM Narrative Medical decision making narrative: Patient has pain due to fractured tooth, #29, due to dental carry. There is mild gingival edema noted. There is no fluctuance. There is tenderness over the body of the mandible. There is a shoddy submandibular node noted. There is no evidence of Ludewig's angina. There is no trismus. Patient was treated with amoxicillin, Naprosyn and hydrocodone. She states she is calling the dentist tomorrow morning. Discharge Plan Triage Chief Complaint: Dental ED Provider: Cosmo Richards Dx/Rx/DC Orders Clinical Impression: Dental cavity, Fracture of tooth, Apical abscess, Symptomatic reversible pulpitis Instructions: ED Dental Cavity, ED Dental Abscess Prescriptions: New hydrocodone-acetaminophen [hydrocodone-acetaminophen] 1 TABLET tablet 1 tab PO Q6H PRN PRN (Reason: Pain) 3 Days Qty: 10 RF: 0 amoxicillin 500 MG tablet 500 mg PO TID Qty: 30 RF: 0 naproxen 500 MG tablet 500 mg PO BID Qty: 14 RF: 0 No Action omeprazole 40 mg capsule,delayed release(DR/EC) 40 mg PO BID Qty: 90 RF: 1 tumeric 1 ea PO DAILY RF: 0 Vitamin C 500 mg PO DAILY RF: 0 Vitamin D3 4,000 iu PO DAILY RF: 0 Zinc 50 mg PO DAILY RF: 0 scopolamine base 1 mg over 3 days patch 3 day 1 patch transdermal Q3D PRN (Reason: nausea and vomiting) Qty: 10 RF: 1 sucralfate 100 mg/mL suspension 10 ml PO BID 28 Days Qty: 560 RF: 0 hyoscyamine sulfate 0.125 mg tablet,disintegrating 0.125 mg PO BID-QID Qty: 60 RF: 0 prednisone 10 mg tablet 10 mg PO DAILY Qty: 30 RF: 0 sertraline 100 mg tablet 150 mg PO DAILY Qty: 90 RF: 1 bisacodyl 5 mg tablet,delayed release (DR/EC) 5 mg PO ONCE Qty: 4 RF: 0 polyethylene glycol 3350 [Miralax] 17 gram/dose powder 17 g PO DAILY Qty: 238 RF: 0 hydrocortisone acetate 30 mg suppository 30 mg UT BID PRN (Reason: itching) Qty: 12 RF: 2 colestipol 1 gram tablet 1 g PO BID Qty: 90 RF: 2 Primary Care Provider: Neymar Mayo Referrals: Neymar Mayo MD [Primary Care Provider] - Dentist,Your [STAFF PHYSICIAN] - Disposition Disposition: Home, Self Care
[2021-12-29] MEDS: AMOXICILLIN 500 MG CAPSULE PO (21:21)
[2021-12-29] MEDS: Naproxen 250 MG Tablet 500 MG PO (21:22)
[2021-12-29] MEDS: HYDROcodone Bitartrate/Apap 5/325 Tablet PO (21:22)
== END 2021-12-29 21:58 | disposition home or self-care (01) ==
PROVIDERS: Emergency Provider Emergency Medicine; PCP Internal Medicine; Visit Provider Emergency Medicine
DX: S02.5XXA Fracture of tooth (traumatic), initial encounter for closed fracture (principal); M32.9 Systemic lupus erythematosus, unspecified; K04.7 Periapical abscess without sinus; K04.01 Reversible pulpitis; I10 Essential (primary) hypertension; K02.9 Dental caries, unspecified; E78.00 Pure hypercholesterolemia, unspecified; F32.A Depression, unspecified; K21.9 Gastro-esophageal reflux disease without esophagitis; K75.81 Nonalcoholic steatohepatitis (NASH); E07.9 Disorder of thyroid, unspecified; G25.81 Restless legs syndrome; K76.0 Fatty (change of) liver, not elsewhere classified; M79.7 Fibromyalgia; Z79.899 Other long term (current) drug therapy; Z79.52 Long term (current) use of systemic steroids; F17.210 Nicotine dependence, cigarettes, uncomplicated
CPT/HCPCS: 99283

== ENCOUNTER → 2022-02-04 | Outpatient (CLI) | payer OTHER, SELFPAY ==
[2022-02-04 15:11] LABS: Erythrocyte Sedimentation Rate 20 mm/hr (0-30)
[2022-02-04 15:18] LABS: Absolute Lymphocyte Count 2.66 X10^3/uL (0.83-4.51); Basophil# 0.06 X10^3/uL; Basophil% 0.8 % (0-1); Eosinophils% 1.3 % (0-5); Hematocrit 44.3 % (37-47); Hemoglobin 14.9 g/dL (12.0-15.0); Lymphocyte # 2.66 X10^3/ul (0.83-4.51); Lymphocyte % 35.7 % (19-41); Mean Corp Hgb Conc 33.6 g/dL (32-36); Mean Corpuscular Hgb 31.4 pg (27.0-32.0); Mean Corpuscular Volume 93.3 fL (81-99); Monocyte# 0.57 X10^3/uL; Monocyte% 7.7 % (0-10); NRBC Flagged by Analyzer 0 % (0-5); Neutrophil # 4.02 X10^3/uL (2.7-7.7); Platelet Count 217 K/mm3 (150-450); RBC Distribution Width CV 13.2 % (11.6-14.6); RBC Distribution Width SD 45.1 fl (35.1-43.9); Red Blood Count 4.75 M/mm3 (4.2-5.4); White Blood Count 7.5 K/mm3 (4.4-11.0)
[2022-02-04 15:36] LABS: ALB/GLOB Ratio 1.3 RATIO (0.9-2.4); AST(SGOT) 54 U/L (15-37); Alanine Aminotransfer ALT/SGPT 105 U/L (13-56); Albumin, Serum 4.3 g/dL (3.2-5.0); Alkaline Phosphatase 86 U/L (45-117); Anion Gap 5 (5-15); BUN 8 mg/dL (7-18); BUN/Creat Ratio 9.9 RATIO (10-20); CRP 4.14 mg/L (0.0-3.0); Calcium,Total 9.8 mg/dL (8.5-10.1); Chloride 107 mmol/L (98-107); Creatinine, Serum 0.81 mg/dL (0.55-1.02); EST Glomerular Filtration Rate 81 mL/min (>60); Est Glom Filt Rate - Afr Amer 98 mL/min (>60); Globulin 3.4 g/dL (2.2-4.2); Glucose 92 mg/dL (74-106); LDH 256 U/L (84-246); Potassium 4.1 mmol/L (3.5-5.1); Protein, Total 7.7 g/dL (6.4-8.2); Sodium Level 139 mmol/L (136-145)
[2022-02-08 11:26] LABS: Cytoplasmic Ab (C-ANCA) <1:20 titer (Neg:<1:20); Endomysial Antibody IgA Negative (Negative); Immunoglobulin A 154 mg/dL (87-352)
[2022-02-08 13:07] LABS: Anti-Centromere B Ab <0.2 AI (0.0-0.9); Anti-Chromatin <0.2 AI (0.0-0.9); Anti-Jo <0.2 AI (0.0-0.9); Anti-Scleroderma-70 AB <0.2 AI (0.0-0.9); RNP Ab <0.2 AI (0.0-0.9); SJOGREN'S Anti-SS-A test < 0.2 AI (0.0-0.9); SJOGREN'S Anti-SS-B test < 0.2 AI (0.0-0.9); Smith Ab <0.2 AI (0.0-0.9)
[2022-02-08 20:02] LABS: Anti-dsDNA Ab <1 IU/mL (0-9)
[2022-02-08 20:08] LABS: Perinuclear Ab (P-ANCA) <1:20 titer (Neg:<1:20); t-Transglutaminase IgA <2 U/mL (0-3)
== END | disposition home or self-care (01) ==
PROVIDERS: PCP Internal Medicine; Referring Provider Nurse Practitioner Adult Health; Visit Provider Nurse Practitioner Adult Health
DX: R19.7 Diarrhea, unspecified (principal); R79.82 Elevated C-reactive protein (CRP); R10.30 Lower abdominal pain, unspecified
CPT/HCPCS: 36415; 80053; 82784; 83516; 83615; 85025; 85652; 86140; 86225; 86235; 86255; 86256

== ENCOUNTER → 2022-02-15 | Outpatient (CLI) | payer OTHER, SELFPAY ==
--- NOTE | 2022-02-15 18:38 | CT_ITS ---
EXAM: CT ABDOMEN AND PELVIS WITH INTRAVENOUS CONTRAST CLINICAL INDICATION: bloody diarrhea, lower abd pain -- oral and IV, will prep for allergy TECHNIQUE: Helically acquired images were obtained of the abdomen and pelvis with intravenous contrast. This CT exam was performed using one or more of the following dose reduction techniques: automated exposure control, adjustment of the mA and/or kV according to patient size, and/or use of iterative reconstruction technique. This report was created using [email or web address] report generation technology. CONTRAST: Oral and amp; IV Readi-CAT and amp; 100mL Isovue-300 RADIATION DOSE: CTDIvol = 13.99 mGy, DLP = 886.79 mGy-cm COMPARISON: August 12, 2021. FINDINGS: LOWER THORAX: Unremarkable. Lung bases are clear. No cardiomegaly. No significant pericardial effusion. ABDOMEN: LIVER: Low-attenuation fatty-appearing liver with focal sparing near the contracted gallbladder. GALLBLADDER AND BILE DUCTS: Contracted gallbladder, no obvious stones or inflammation. No gallbladder distention or wall edema. No intra- or extrahepatic biliary ductal dilation. PANCREAS: Unremarkable. No focal cystic or solid mass. SPLEEN: Unremarkable. Normal size without focal cystic or solid mass. ADRENALS: Unremarkable. No nodules. KIDNEYS AND URETERS: Unremarkable. Normal renal size and position. No hydronephrosis. STOMACH AND BOWEL: Oral contrast reached mid to distal small bowel loops, no evidence of obstruction. Moderate stool in most of the proximal two thirds of the colon, moderate gas in the sigmoid, minimal gas in the rectum. No focal inflammatory change. PELVIS: APPENDIX: Postoperative change at the posterior tip of the cecum consistent with appendectomy. BLADDER: Unremarkable. REPRODUCTIVE: Hysterectomy. ABDOMEN and PELVIS: INTRAPERITONEAL SPACE: Unremarkable. No ascites or other fluid collection. No free air. BONES/JOINTS: Mild posterior disc bulge disc protrusion at L5-S1 projecting roughly 5 mm posterior to the expected disc margin approaching the S1 nerve roots in the lateral recesses without displacement. No suspicious lytic or blastic abnormality. SOFT TISSUES: Unremarkable. No discrete abdominal or pelvic wall hernia. VASCULATURE: Unremarkable. Abdominal aorta is non-dilated. LYMPH NODES: Unremarkable. No enlarged lymph nodes. CT/Abdomen/Pelvis WITH Contrast IMPRESSION: Nonspecific findings. Fatty liver. Contracted gallbladder. Moderate stool in much of the colon. No evidence of significant colitis or proctitis. Hysterectomy and appendectomy. Mild posterior disc bulge-protrusion at L5-S1. Electronically Signed: Taryn Maradiaga MD at 6:00 EDT ,
== END | disposition home or self-care (01) ==
LOC: CT 18:37
PROVIDERS: PCP Internal Medicine; Visit Provider Nurse Practitioner Adult Health
DX: R19.7 Diarrhea, unspecified (principal); R10.30 Lower abdominal pain, unspecified
CPT/HCPCS: 74177; Q9967

== ENCOUNTER → 2022-04-26 | Outpatient (CLI) | payer OTHER, SELFPAY ==
[2022-04-26 12:58] LABS: Amylase 38 U/L (25-115); Lipase 168 U/L (73-393)
== END | disposition home or self-care (01) ==
LOC: BIMLAB 11:28
PROVIDERS: PCP Internal Medicine; Referring Provider Physician Assistant; Visit Provider Physician Assistant
DX: R10.9 Unspecified abdominal pain (principal)
CPT/HCPCS: 36415; 82150; 83690

== ENCOUNTER 2022-05-07 10:59 | Emergency (ER) | payer OTHER, MEDICAID, SELFPAY ==
[2022-05-07 11:00] VITALS: BP 143/91; PULSE 101; RESP 18; TEMP 36.4; O2SAT 98; BMI 30.9
--- NOTE | 2022-05-07 11:27 | EDS_ITS ---
HPI History of Present Illness Chief Complaint: Abscess Informant: patient Onset/Context/Timing Onset: Days (2) Context: Gradual Onset Timing: Continuous Quality: Dull Location: Right upper medial thigh Worsened by: Palpation, ambulation Relieved by: Nothing Narrative Narrative: Patient presents with abscess to her right proximal medial thigh that has been getting worse over the last 2 days. Patient states her pain is dull. Patient states the pain is worse with palpation and with ambulating. Patient denies any fevers or chills. Patient denies any discharge or drainage. Patient also complains of pain over her left upper first premolar area. Patient denies any discharge or drainage from this area. Patient states that pain is worse with chewing. Patient denies any nausea or vomiting. Patient denies any difficulty swallowing. [facility] Medical History Acute otitis externa of both ears Acute otitis media, left Arthritis Back problem Cervical radiculopathy Contact dermatitis Depression Easy bruising Fatty liver Fibromyalgia Gastric reflux GI problem Headache, migraine High cholesterol History of pneumonia Hypertension Injury of back Left shoulder pain Left shoulder tendinitis Liver disease Lupus POWELL (nonalcoholic steatohepatitis) Open wound Oral thrush Restless legs Seasonal allergies Smoker Thyroid disease Vaginal kushal Home Medications omeprazole 40 mg capsule,delayed release 40 mg PO BID #90 caps 12/19/20 [Rx Last Taken Unknown] Vitamin C 500 mg PO DAILY 06/29/21 [History Last Taken Unknown] Vitamin D3 4,000 iu PO DAILY 06/29/21 [History Last Taken Unknown] Zinc 50 mg PO DAILY 06/29/21 [History Last Taken Unknown] tumeric 1 ea PO DAILY 06/29/21 [History Last Taken Unknown] scopolamine base 1 mg over 3 days transdermal patch 1 patch transdermal Q3D PRN nausea and vomiting #10 ea 12/04/21 [Rx Last Taken Unknown] albuterol sulfate 90 mcg/actuation breath activated powder inhaler 2 inh inhalation Q4H PRN shortness of breath or wheezing #1 ea 03/03/22 [Rx Last Taken Unknown] gabapentin 300 mg capsule 300 mg PO BID #60 caps 03/05/22 [Rx Last Taken Unknown] sertraline 100 mg tablet 150 mg PO DAILY #90 tabs 04/26/22 [Rx Last Taken Unknown] atorvastatin 10 mg tablet 10 mg PO QHS #30 tabs 04/28/22 [Rx Last Taken Unknown] clindamycin HCl 300 mg capsule (Cleocin HCl) 300 mg PO Q6H #40 CAPSULES 05/07/22 [Rx Last Taken Unknown] Allergy/AdvReac Type Severity Reaction Status Date / Time amoxicillin trihydrate Allergy Hives Verified 04/26/22 10:40 [From Augmentin] Iodinated Contrast Media Allergy Swelling Verified 04/26/22 10:40 [DYEE] nitrofurantoin Allergy Hives Verified 04/26/22 10:40 macrocrystalline [From Macrodantin] phenazopyridine Allergy Hives Verified 04/26/22 10:40 [From Pyridium] potassium clavulanate Allergy Hives Verified 04/26/22 10:40 [From Augmentin] sulfamethoxazole Allergy Hives Verified 04/26/22 10:40 [From Bactrim] trimethoprim [From Bactrim] Allergy Hives Verified 04/26/22 10:40 STERI-STRIPS Allergy Other Uncoded 04/26/22 10:40 Family History Father Alcoholism CVA (cerebral vascular accident) Mother Cancer Melanoma Grandfather Cancer Grandmother Cancer Other Arthritis Autoimmune disorder Breast cancer Colon cancer Depression Heart disease Hypertension Liver disease Myocardial infarction Ovarian cancer Psychiatric care Thyroid disorder Uterine cancer ulcer disease Surgical History History of appendectomy History of exploratory laparotomy History of oophorectomy History of tonsillectomy Hx of section Hx of hernia repair Hx of hysterectomy Social History household members: none Smoking Status: Current every day smoker tobacco type: cigarettes alcohol intake: never substance use type: marijuana ROS ROS ED Constitutional Constitutional ED: Denies chills or fever(s) Eyes Eyes: Denies blurry vision or change in vision ENT ENT ED: Denies rhinorrhea or sore throat Cardiovascular Cardiovascular: Denies chest pain or palpitations Respiratory/Chest Respiratory/Chest: Denies cough or dyspnea Gastrointestinal Gastrointestinal: Denies nausea or vomiting Genitourinary Genitourinary ED: Denies dysuria or hematuria Musculoskeletal Musculoskeletal: Denies back pain or neck pain Integumentary Reports abscess; Denies rash Neurologic Neurologic: Denies headache(s) or weakness Allergic/Immunologic Allergic/Immunologic ED: Denies mouth swelling or urticaria EXAM Physical Exam Const Vital Signs: 05/07/22 11:00 05/07/22 11:57 Temperature 97.5 F L 97.5 F L Temperature Source Temporal Temporal Pulse Rate 101 H 101 H Respiratory Rate 18 18 Blood Pressure 143/91 H 143/91 H Blood Pressure Mean 108 108 Pulse Ox 98 98 Oxygen Delivery Method Room Air Room Air Positive well nourished, well developed and obese General Appearance ED: well developed and NAD Nutritional Appearance: obese HEENT Reports moist mucous membranes HEENT Narrative: There is a large dental carry noted over the left upper first premolar. There is some mild gingival edema around this tooth. There is no fluctuance. There is no discharge or drainage. Oral mucosa is pink and moist. Oropharynx is clear. Airway is patent. Neck is supple. Trachea is midline. There is no sublingual edema or erythema. There is no evidence of Maximino's angina. Neck supple and no JVD Resp normal respiratory effort and clear to auscultation bilaterally Cardio regular rate, regular rhythm and no murmurs GI normal to inspection, nondistended, normoactive bowel sounds and non-tender Palpation: soft Extremity normal to inspection General Extremety ED: Negative for edema or tenderness General Extremity: Negative for edema Neuro oriented x3, CN's II-XII intact bilaterally and no sensory deficits noted Sensorium / Orientation: alert Motor Exam: strength 5/5 throughout Psych mental status grossly normal Skin Skin Narrative: There is a tender indurated area over the right upper medial thigh. There is some mild fluctuance. There is no active discharge or drainage. There is some mild erythema and warmth. MDM MDM MDM Narrative Medical decision making narrative: The area was cleaned with chlorhexidine prep. The area was anesthetized with 1% plain lidocaine locally. A small cruciate incision was made using an 11 blade scalpel. A small amount of purulent drainage was expressed. The wound was left open. Bacitracin dressing was applied. Patient tolerated the procedure well. Patient was instructed to use warm compresses. Patient was given a dose of clindamycin here. Patient was given a prescription for clindamycin. Patient was instructed to follow-up with her primary care physician in 5 to 7 days. Patient understood and was agreeable with the plan. All questions were answered. Procedures Other Procedures Procedure(s): The area was cleaned with chlorhexidine prep. The area was anesthetized with 1% plain lidocaine locally. A small cruciate incision was mad e using an 11 blade scalpel. A small amount of purulent drainage was expressed. The wound was left open. Bacitracin dressing was applied. Patient tolerated the procedure well. Discharge Plan Triage Chief Complaint: Abscess ED Provider: Dwain Bazzi Dx/Rx/DC Orders Clinical Impression: Abscess of skin or subcutaneous tissue, Infected dental caries Instructions: ED Abscess Incision And Drainage, ED Dental Cavity Prescriptions: New clindamycin HCl [Cleocin HCl] 300 mg capsule 300 mg PO Q6H Qty: 40 0RF No Action omeprazole 40 mg capsule,delayed release(DR/EC) 40 mg PO BID Qty: 90 1RF tumeric 1 ea PO DAILY Vitamin C 500 mg PO DAILY Vitamin D3 4,000 iu PO DAILY Zinc 50 mg PO DAILY scopolamine base 1 mg over 3 days patch 3 day 1 patch transdermal Q3D PRN (Reason: nausea and vomiting) Qty: 10 1RF albuterol sulfate 90 mcg/actuation aerosol powdr breath activated 2 inh inhalation Q4H PRN (Reason: shortness of breath or wheezing) Qty: 1 0RF sertraline 100 mg tablet 150 mg PO DAILY Qty: 90 1RF gabapentin 300 mg capsule 300 mg PO BID Qty: 60 2RF atorvastatin 10 mg tablet 10 mg PO QHS Qty: 30 1RF Primary Care Provider: Neymar Mayo Referrals: Neymar Mayo MD [Primary Care Provider] - 5-7 Days Dentist,Your [STAFF PHYSICIAN] - 5-7 Days Disposition Disposition: Home, Self Care
[2022-05-07] MEDS: Clindamycin HCl 150 MG Capsule 300 MG PO (11:55)
[2022-05-07] MEDS: Lidocaine 1% (20 ml mdv) 20 ML Vial INFILT (11:55)
[2022-05-07 11:57] VITALS: BP 143/91; PULSE 101; RESP 18; TEMP 36.4; O2SAT 98
== END 2022-05-07 13:37 | disposition home or self-care (01) ==
PROVIDERS: Emergency Provider Emergency Medicine; PCP Internal Medicine; Visit Provider Emergency Medicine
DX: L02.415 Cutaneous abscess of right lower limb (principal); M32.9 Systemic lupus erythematosus, unspecified; F32.A Depression, unspecified; M79.7 Fibromyalgia; K21.9 Gastro-esophageal reflux disease without esophagitis; I10 Essential (primary) hypertension; E78.00 Pure hypercholesterolemia, unspecified; K75.81 Nonalcoholic steatohepatitis (NASH); E07.9 Disorder of thyroid, unspecified; M54.12 Radiculopathy, cervical region; Z79.899 Other long term (current) drug therapy; F17.210 Nicotine dependence, cigarettes, uncomplicated; E66.9 Obesity, unspecified; K04.7 Periapical abscess without sinus; Z68.30 Body mass index [BMI] 30.0-30.9, adult
CPT/HCPCS: 10060; 99282

== ENCOUNTER 2022-06-07 10:44 | Day surgery (SDC) | payer OTHER, MEDICAID, SELFPAY ==
[2022-06-07] VITALS (8 sets, daily range): BP systolic 103–128; BP diastolic 76–87; PULSE 65–90; RESP 16–18; TEMP 36.2–36.7; O2SAT 91–96; BMI 30.6
--- NOTE | 2022-06-07 | EGD_PTH ---
PATIENT: FELIX RAITA LOC: [facility] U#:[id number] AGE/SX: 47/F ROOM: RE06/07/[address]: Dr. Tushar Martino DO : 1975 BED: DIS: 06/07/2022 SPEC #: [id number] RECD: 06/07/22 13:38 STATUS: CRISTHIAN NAHID #: [id number] HERNÁN: 06/07/22 00:[address]: Tushar Martino DEPT: SURGICAL PATHOLOGY RECD BY: Matt Haro ENTERED: 06/08/22 10:19 SP TYPE: EGD BIOPSY OT DR: Dr. Neymar Mayo MD Tissues: A - Duodenum, NOS B - Esophageal mucous membrane C - Ileum, NOS D - COLON BIOPSY Procedures: Special Stain Group II Surgery Specimen Level IV Alcian Blue/PAS (control) HEADER OPERATION: Colonoscopy, EGD ([facility] [place]), biopsy PRE-OP DIAGNOSIS: Bloody diarrhea, lower abdominal pain, elevated C-reactive protein TISSUE SUBMITTED: A ? Duodenum biopsy, B ? Distal esophagus biopsy, C ? Terminal ileum biopsy, D ? Random colonic biopsy MICROSCOPIC DIAGNOSIS A. Duodenum, biopsy: Fragments of duodenal mucosa with mild Geo gland hyperplasia. B. Distal esophagus, biopsy: Fragments of gastroesophageal mucosa with chronic inflammation. Intestinal metaplasia (goblet cell metaplasia) not identified. See comment. C. Terminal ileum, biopsy: Fragments of small intestinal mucosa, no pathologic diagnosis. D. Colon, random biopsy: Fragments of colonic mucosa, no pathologic diagnosis. SJ:jesus 06/09/2022 COMMENT B. Alcian blue/PAS stain with matched control is used in the evaluation of the specimen. The specimen predominantly consists of gastric mucosa. MICROSCOPIC DESCRIPTION Slides are reviewed. GROSS DESCRIPTION A - Received in fixative is one container labeled with the patient's name and designated duodenum biopsy. The specimen consists of two irregular fragments of light waite soft tissue that in aggregate measure 0.8 x 0.2 x 0.1 cm. The specimen is totally submitted in one cassette. B - Received in fixative is one container labeled with the patient's name and designated distal esophagus biopsy. The specimen consists of two irregular fragments of light waite soft tissue that in aggregate measure 0.6 x 0.3 x 0.1 cm. The specimen is totally submitted in one cassette. C - Received in fixative is one container labeled with the patient's name and designated terminal ileum biopsy. The specimen consists of multiple irregular fragments of light waite soft tissue that in aggregate measure 1 x 0.4 x 0.1 cm. The specimen is totally submitted in one cassette. D - Received in fixative is one container labeled with the patient's name and designated random colonic biopsy. The specimen consists of multiple irregular fragments of light waite soft tissue that in aggregate measure 1.5 x 0.5 x 0.1 cm. The specimen is totally submitted in one cassette. / SJ:rg 06/08/2022 TC:3 CPT: 01235 x4, [id number]
[2022-06-07] MEDS: Lactated Ringers 1,000 ML 15 ML IV (11:34)
--- NOTE | 2022-06-07 12:55 | HP.PCM_ITS ---
History and Physical Date of Admission: 06/07/22 FELIX ARITA, is a 46 F who presents to the office today for worsening acid reflux, nausea, bloody diarrhea, abdominal pain, bloating. She states she is miserable, feels depressed about her health, very worried. Acid refluxing up into her mouth, thinks it is causing sores. Having difficulty swallowing, even saliva, concerned she will choke. No food sticking in esophagus. Acid reflux worsened when she did a prednisone taper for a non-GI issue. She showed me a photo of blood clots that she had passed per rectum. She has multiple episodes per day of bloody diarrhea. Has abdominal bloating which is getting worse, is very uncomfortable. Has lower abdominal pain, feels like it's intestinal pain; also has chronic RUQ pain which she attributes to hepatomegaly. The lower abdominal pain never abates, makes it hard to sleep, severity varies, can be worse after eating. No relief of any symptoms with sucralfate, dicyclomine, hyoscyamine. Some relief of nausea with scopolamine patch. She takes omeprazole 40 mg daily. 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 Esophageal wall thickening consistent with esophagitis. Stool throughout colon. Liver biopsy 09.28.21 findings consistent with chronic steatohepatitis with inflammation confined to portal areas with focal minimal lobular involvement. Consistent with chronic hepatitis, grade 1, stage 1.? Hepatitis bloodwork 12.10.19 were negative ROS Const Constitutional: Positive for fatigue ENT ENT: Positive for difficulty swallowing Cardio Cardiology: Positive for leg pain with exertion Gastro GI: Positive for abdominal pain, bloating, change in bowel habits, diarrhea, heartburn, difficulty swallowing, excessive flatus, Blood in stool, nausea/dyspepsia and vomiting; No belching, change in stool character, coffee ground emesis, constipation, cramping, feeling full early, incontinent of stools, Vomiting blood/hematemesis, loose stools, Black,tarry stools, pain with swallowing or other Musc Musculoskeletal: Positive for muscle cramps, muscle weakness, numbness, stiffness, tingling, Arthritis, restless legs, leg pain at night and leg pain with exertion; No joint pain Skin Skin: No yellowing of the eye or itchy eyes Neuro Neurology: Positive for numbness, tingling and restless legs Psych Psychiatric: Positive for anxiety and Positive for depression Endo Endocrine: Positive for fatigue Aller/Imm Allergy/Immunologic: No itchy eyes Nam/Lymp Hematologic/Lymphatic: Positive for easy bleeding and easy bruising Exam Const General: uncomfortable, well developed, well groomed and anxious Eyes Conjunctivae: conjunctivae normal Sclera: sclerae normal Resp Effort & Inspection: normal respiratory effort GI Inspection: distended Palpation: soft, no hepatosplenomegaly, no masses and tender in the epigastrum, in the LLQ, in the RLQ, in the LUQ and in the RUQ Skin General: no jaundice Quality Reporting Tobacco Screening ([facility]) Smoking Status: Current every day smoker Assessment and Plan Assessment and Plan (1) Bloody diarrhea: ?Status:?Acute (2) Abdominal pain, lower: ?Status:?Acute (3) Elevated C-reactive protein (CRP): ?Status:?Acute ? ? ? Orders:?Orders: ? Comprehensive Metabolic Profil 02/04/22 R19.7 ? ? CRP 02/04/22 R19.7 ? ? LDH 02/04/22 R19.7 ? ? CBC W/Diff, Automated 02/04/22 R19.7 ? ? Erythrocyte Sed Rate 02/04/22 R19.7 ? ? [facility] Comprehensive Panel 02/04/22 R19.7 ? ? Calprotectin, Stool 02/04/22 R19.7 ? ? Stool Lactoferrin/WBC 02/04/22 R19.7 ? ? ANCA 02/04/22 R19.7 ? ? Celiac Disease Profile 02/04/22 R19.7 ? ? CDIFF (PCR) 02/04/22 R19.7 ? ? Giardia Lamblia, Stool EIA 02/04/22 R19.7 ? ? Abdomen/Pelvis WITH Contrast 02/04/22 R19.7, R10.30 ? ? Miscellaneous Lab Procedure 02/04/22 R19.7, R10.30 ?Plan - Becca Rivera [employer], [employer]-C: 46-year-old female with GI concerns which began in fall 2020.? Endoscopy had been scheduled back in 07/2021, patient canceled that appointment.? We have continued to treat her GI symptoms.? She continues to have significant acid reflux, abdominal pain, abdominal bloating, and multiple episodes of bloody diarrhea per day.? Nausea is adequately managed with scopolamine patch.? She is scheduled for EGD and colonoscopy.? In the meantime we will update CT, needs prep due to allergy.? Biochemical w/o, stool tests. Rx gabapentin, start with HS dose since she is frustrated by not sleeping due to pain, can increase to bid, she tolerated this medication previously for fibromyalgia.? She already has follow-up scheduled after her endoscopy. Plan Details Other Medications: ?New: ? prednisone ?take 50 mg by mouth 13 hours before, 7 hours before, and [address] scan. Also take diphenhydramine (Benedryl) 50 mg by mouth [address] scan[address] 3 tabs 0RF ? ? ? gabapentin 300 mg? PO BID 60 caps 0RF ?Discontinued: ? bisacodyl ?? take as directed for bowel prep ?? Discontinued Reason:? Order Completed 5 mg? PO ONCE 4 tabs 0RF ? ? ? polyethylene glycol 3350 (Miralax) ?? take as directed for bowel prep ?? Discontinued Reason:? Order Completed 17 grams? PO DAILY 238 grams 0RF ? ? ? prednisone ?? 4 tablets daily for 3 days, then 3 tablets daily for 3 days, then 2 tablets daily for 3 days, then 1 tablet daily for 3 days ?? Discontinued Reason:? Order Completed 10 mg? PO DAILY 30 tabs 0RF ? ? ? hydrocortisone acetate ?? Discontinued Reason:? Pt no longer taking 30 mg? WI BID PRN 12 ea 2RF itching ? ? ? colestipol ?? take two tabs in the morning and one tab in the evening. ?? Discontinued Reason:? Pt no longer taking 1 g? PO BID 90 tabs 2RF ? ? ? hyoscyamine sulfate ?? Discontinued Reason:? Pt no longer taking 0.125 mg? PO BID-QID 60 tabs 0RF dyspepsia ? ? ? amoxicillin ?? Discontinued Reason:? Order Completed 500 mg? PO TID 30 tabs 0RF ? ? ? hydrocodone-acetaminophen 5-325 mg ?? Discontinued Reason:? Pt no longer taking 1 TAB? PO Q6H PRN 3 days PRN 10 TAB LETS 0RF Pain K04.01, K04.7, S02.5XXA ? I have re-examined the patient. There are no clinical changes since date of exam.
--- NOTE | 2022-06-07 13:35 | OP.EGD_ITS ---
Patient Name: Kat Roman Procedure Date: 06/07/2022 12:48 PM Date of : 1975 Age: 47 Procedure: Upper GI endoscopy Indications: Epigastric abdominal pain, Functional Dyspepsia, Failure to respond to medical treatment Providers: Tushar Martino DO Referring MD: Neymar Mayo MD Medicines: Monitored Anesthesia Care Patient Profile: This is a 47 year old female. Refer to note in patient chart for documentation of history and physical. Patient has symptoms of chronic abdominal cramping and chronic epigastric abdominal pain. Complications: No immediate complications. Procedure: Pre-Anesthesia Assessment: - Prior to the procedure, a History and Physical was performed, and patient medications and allergies were reviewed. The patient is competent. The risks and benefits of the procedure and the sedation options and risks were discussed with the patient. All questions were answered and informed consent was obtained. Patient identification and proposed procedure were verified by the physician in the pre-procedure area. Mental Status Examination: alert and oriented. Airway Examination: normal oropharyngeal airway and neck mobility. Respiratory Examination: clear to auscultation. CV Examination: normal. Prophylactic Antibiotics: The patient does not require prophylactic antibiotics. Prior Anticoagulants: The patient has taken no previous anticoagulant or antiplatelet agents. ASA Grade Assessment: II - A patient with mild systemic disease. After reviewing the risks and benefits, the patient was deemed in satisfactory condition to undergo the procedure. The anesthesia plan was to use monitored anesthesia care (MAC). Immediately prior to administration of medications, the patient was re-assessed for adequacy to receive sedatives. The heart rate, respiratory rate, oxygen saturations, blood pressure, adequacy of pulmonary ventilation, and response to care were monitored throughout the procedure. The physical status of the patient was re-assessed after the procedure. After obtaining informed consent, the endoscope was passed under direct vision. Throughout the procedure, the patient's blood pressure, pulse, and oxygen saturations were monitored continuously. The colonoscope was introduced through the mouth, and advanced to the second part of duodenum. The upper GI endoscopy was accomplished without difficulty. The patient tolerated the procedure well. Scope In: 1:02:11 PM Scope Out: 1:05:50 PM Total Procedure Duration Time 0 hours 3 minutes 39 seconds Findings: The Z-line was irregular and was found 37 cm from the incisors. Biopsies were taken with a cold forceps for histology. Verification of patient identification for the specimen was done. Estimated blood loss was minimal. A small hiatal hernia was present. Patchy mildly erythematous mucosa without bleeding was found in the gastric body. Biopsies were taken with a cold forceps for histology. Verification of patient identification for the specimen was done. Estimated blood loss was minimal. Patchy mildly erythematous mucosa without active bleeding and with no stigmata of bleeding was found in the first portion of the duodenum and in the second portion of the duodenum. Biopsies were taken with a cold forceps for histology. Verification of patient identification for the specimen was done. Estimated blood loss was minimal. Impression: - Z-line irregular, 37 cm from the incisors. Biopsied. - Small hiatal hernia. - Erythematous mucosa in the gastric body. Biopsied. - Erythematous duodenopathy. Biopsied. Recommendation: - Written discharge instructions were provided to the patient. - The signs and symptoms of potential delayed complications were discussed with the patient. - Patient has a contact number available for emergencies. - Return to normal activities tomorrow. - Resume previous diet. - Continue present medications. - Await pathology results. Procedure Code(s): --- Professional --- 05338, Esophagogastroduodenoscopy, flexible, transoral; with biopsy, single or multiple CPT copyright 2017 [employer]. All rights reserved. The codes documented in this report are preliminary and upon salvage engineer review may be revised to meet current compliance requirements. Tushar Martino DO 06/07/2022 1:35:19 PM This report has been signed electronically. Number of Addenda: 0 Note Initiated On: 06/07/2022 12:48 PM
--- NOTE | 2022-06-07 13:36 | OP.CCLET_ITS ---
06/07/2022 Neymar Mayo MD [address] [place] [address] [place] [address] Re : Upper GI endoscopy procedure for Kat Roman Dear Dr. Mayo This procedure was performed on Tuesday, June 07, 2022. My impressions and recommendations are as follows: Impressions : - Z-line irregular, 37 cm from the incisors. Biopsied. - Small hiatal hernia. - Erythematous mucosa in the gastric body. Biopsied. - Erythematous duodenopathy. Biopsied. Recommendations : - Written discharge instructions were provided to the patient. - The signs and symptoms of potential delayed complications were discussed with the patient. - Patient has a contact number available for emergencies. - Return to normal activities tomorrow. - Resume previous diet. - Continue present medications. - Await pathology results. My findings are described in the full procedure note, which is enclosed. If I can be of further assistance, please feel free to contact me at . Sincerely, Tushar Martino, 06/07/2022 1:35:19 PM This report has been signed electronically.
--- NOTE | 2022-06-07 13:40 | OP.COLON_ITS ---
Patient Name: Kat Roman Procedure Date: 06/07/2022 1:06 PM Date of : 1975 Age: 47 Procedure: Colonoscopy Indications: Abdominal pain in the left lower quadrant, Hematochezia Providers: Tushar Martino DO Referring MD: Neymar Mayo MD Medicines: Monitored Anesthesia Care Patient Profile: This is a 47 year old female. Refer to note in patient chart for documentation of history and physical. Patient has symptoms of chronic abdominal cramping and chronic epigastric abdominal pain. Last Colonoscopy: more than 3 years ago. Complications: No immediate complications. Procedure: Pre-Anesthesia Assessment: - Prior to the procedure, a History and Physical was performed, and patient medications and allergies were reviewed. The patient is competent. The risks and benefits of the procedure and the sedation options and risks were discussed with the patient. All questions were answered and informed consent was obtained. Patient identification and proposed procedure were verified by the physician in the pre-procedure area. Mental Status Examination: alert and oriented. Airway Examination: normal oropharyngeal airway and neck mobility. Respiratory Examination: clear to auscultation. CV Examination: normal. Prophylactic Antibiotics: The patient does not require prophylactic antibiotics. Prior Anticoagulants: The patient has taken no previous anticoagulant or antiplatelet agents. ASA Grade Assessment: II - A patient with mild systemic disease. After reviewing the risks and benefits, the patient was deemed in satisfactory condition to undergo the procedure. The anesthesia plan was to use monitored anesthesia care (MAC). Immediately prior to administration of medications, the patient was re-assessed for adequacy to receive sedatives. The heart rate, respiratory rate, oxygen saturations, blood pressure, adequacy of pulmonary ventilation, and response to care were monitored throughout the procedure. The physical status of the patient was re-assessed after the procedure. After I obtained informed consent, the scope was passed under direct vision. Throughout the procedure, the patient's blood pressure, pulse, and oxygen saturations were monitored continuously. The colonoscope was introduced through the anus and advanced to the terminal ileum. The colonoscopy was performed without difficulty. The patient tolerated the procedure well. The quality of the bowel preparation was fair. Scope In: 1:08:31 PM Scope Withdrawal Time 0 hours 8 minutes 23 seconds Scope Out: 1:21:58 PM Total Procedure Duration Time 0 hours 13 minutes 27 seconds Findings: An anal fissure was found on perianal exam. Non-bleeding external and internal hemorrhoids were found during retroflexion. The hemorrhoids were mild. The perianal exam was abnormal. Two small-mouthed diverticula were found in the recto-sigmoid colon and sigmoid colon. An area of mildly congested mucosa was found in the descending colon, at the hepatic flexure and in the cecum. Biopsies were taken with a cold forceps for histology. Verification of patient identification for the specimen was done. Estimated blood loss was minimal. A patchy area of the terminal ileum was congested. Biopsies were taken with a cold forceps for histology. Verification of patient identification for the specimen was done. Estimated blood loss was minimal. Impression: - Preparation of the colon was fair. - Anal fissure found on perianal exam. - Non-bleeding external and internal hemorrhoids. - Abnormal perianal exam. - Diverticulosis in the recto-sigmoid colon and in the sigmoid colon. - Congested mucosa in the descending colon, at the hepatic flexure and in the cecum. Biopsied. - Congested mucosa in the terminal ileum. Biopsied. Recommendation: - Discharge patient to home. - Resume previous diet. - Continue present medications. - Await pathology results. - Repeat colonoscopy in 5 years for surveillance based on pathology results. Procedure Code(s): --- Professional --- 72018, Colonoscopy, flexible; with biopsy, single or multiple CPT copyright 2017 [employer]. All rights reserved. The codes documented in this report are preliminary and upon ordnance equipment worker review may be revised to meet current compliance requirements. Tushar Martino DO 06/07/2022 1:39:44 PM This report has been signed electronically. Number of Addenda: 0 Note Initiated On: 06/07/2022 1:06 PM
--- NOTE | 2022-06-07 13:40 | OP.CCLET_ITS ---
06/07/2022 Neymar Mayo MD [address] [place] [address] [place] [address] Re : Colonoscopy procedure for Kat Roman Dear Dr. Mayo This procedure was performed on Tuesday, June 07, 2022. My impressions and recommendations are as follows: Impressions : - Preparation of the colon was fair. - Anal fissure found on perianal exam. - Non-bleeding external and internal hemorrhoids. - Abnormal perianal exam. - Diverticulosis in the recto-sigmoid colon and in the sigmoid colon. - Congested mucosa in the descending colon, at the hepatic flexure and in the cecum. Biopsied. - Congested mucosa in the terminal ileum. Biopsied. Recommendations : - Discharge patient to home. - Resume previous diet. - Continue present medications. - Await pathology results. - Repeat colonoscopy in 5 years for surveillance based on pathology results. My findings are described in the full procedure note, which is enclosed. If I can be of further assistance, please feel free to contact me at . Sincerely, Tushar Martino, 06/07/2022 1:39:44 PM This report has been signed electronically.
== END 2022-06-07 14:26 | disposition home or self-care (01) ==
LOC: EN 10:45 → AC 10:46
PROVIDERS: PCP Internal Medicine; Referring Provider Internal Medicine; Visit Provider Internal Medicine Gastroenterology
PROC: 0DJD8ZZ Inspection of Lower Intestinal Tract, Via Natural or Artificial Opening Endoscopic (ICD-10-PCS; CPT 45378; principal; 2022-06-07 12:25)
DX: K21.00 Gastro-esophageal reflux disease with esophagitis, without bleeding (principal); M32.9 Systemic lupus erythematosus, unspecified; K44.9 Diaphragmatic hernia without obstruction or gangrene; K63.89 Other specified diseases of intestine; K60.2 Anal fissure, unspecified; K57.30 Diverticulosis of large intestine without perforation or abscess without bleeding; K64.4 Residual hemorrhoidal skin tags; K64.8 Other hemorrhoids; K75.81 Nonalcoholic steatohepatitis (NASH); F32.A Depression, unspecified; R79.82 Elevated C-reactive protein (CRP); M79.7 Fibromyalgia; F17.210 Nicotine dependence, cigarettes, uncomplicated; M19.90 Unspecified osteoarthritis, unspecified site; Z79.899 Other long term (current) drug therapy
CPT/HCPCS: 45380; 43239; 88305; 88313; J7120; J2405

== ENCOUNTER 2022-06-08 14:10 | Emergency (ER) | payer OTHER, MEDICAID, SELFPAY ==
[2022-06-08 14:11] VITALS: BP 123/77; PULSE 114; RESP 16; TEMP 36.9; O2SAT 99; BMI 31.2
--- NOTE | 2022-06-08 15:31 | CT_ITS ---
STUDY: CT Abdomen And Pelvis W/ Contrast Injection 06/08/2022 6:05 PM REASON FOR EXAM: Female, 47 years old. ABDOMINAL PAIN abd pain -- IV PO Contrast TECHNIQUE: Transaxial images were obtained with oral contrast, and IV 100mL [id number]-300 intravenous contrast. Individualized dose optimization techniques were used for this CT. COMPARISON: None. FINDINGS: The visualized lung bases are unremarkable. The visualized portions of the heart are within normal limits. Unremarkable liver. Unremarkable gallbladder and extrahepatic biliary system. Unremarkable spleen. Unremarkable pancreas. Unremarkable bilateral adrenal glands. No acute findings of the right kidney. No acute findings of the left kidney. Unremarkable visualized stomach. Unremarkable small intestine. Unremarkable colon. There are surgical clips in the region of the appendix consistent with a prior appendectomy. There are no acute findings of the abdominal aorta. Unremarkable inferior vena cava. Subcentimeter mesenteric lymph nodes. Unremarkable urinary bladder. There is absence of the uterus consistent with a prior hysterectomy. There is an umbilical hernia containing fat. Unremarkable osseous structures. CT/Abdomen/Pelvis WITH Contrast IMPRESSION: (NOT LISTED IN ORDER OF SIGNIFICANCE) There are no acute findings. Specifically a rectal abnormality is not seen. Other findings as above. Electronically Signed: Zachariah Main MD at 18:10 EDT ,
--- NOTE | 2022-06-08 15:34 | EDS_ITS ---
HPI History of Present Illness Chief Complaint: Fever Detail of Chief Complaint: Abdominal pain Informant: patient Narrative Narrative: Patient had EGD and colonoscopy performed yesterday by Dr. Martino. She had multiple biopsies taken and a fissure repaired. Patient states she woke at 3 AM this morning with a temperature of 100 and increased pain. She took ibuprofen. Pain has continued to progress throughout the day and temperature has been up to 100 degrees. She called her friend's office who encouraged her to come to the emergency room. [facility] Medical History (Updated 06/08/22 @ 18:[address] Charity Curran MD) Anal fissure Arthritis Cervical radiculopathy Contact dermatitis Depression Fatty liver Fibromyalgia Gastric reflux GI problem Headache, migraine High cholesterol History of pneumonia History of stress test Hypertension Injury of back Left shoulder pain Left shoulder tendinitis Liver disease Lupus POWELL (nonalcoholic steatohepatitis) Oral thrush Rectal prolapse Restless legs Smoker Vaginal kushal Home Medications omeprazole 40 mg capsule,delayed release 40 mg PO BID #90 caps 12/19/20 [Rx Last Taken Unknown] Vitamin C 500 mg PO DAILY 06/29/21 [History Last Taken Unknown] Vitamin D3 4,000 iu PO DAILY 06/29/21 [History Last Taken Unknown] tumeric 1 ea PO DAILY 06/29/21 [History Last Taken Unknown] scopolamine base 1 mg over 3 days transdermal patch 1 patch transdermal Q3D PRN nausea and vomiting #10 ea 12/04/21 [Rx Last Taken Unknown] albuterol sulfate 90 mcg/actuation breath activated powder inhaler 2 inh inhalation Q4H PRN shortness of breath or wheezing #1 ea 03/03/22 [Rx Last Taken Unknown] sertraline 100 mg tablet 150 mg PO DAILY #90 tabs 04/26/22 [Rx Last Taken Unknown] atorvastatin 10 mg tablet 10 mg PO QHS #30 tabs 04/28/22 [Rx Last Taken Unknown] peg 3350-electrolytes 236 gram-22.74 gram-6.74 gram-5.86 gram solution (Golytely) 240 ml PO Q10M #4,000 mL 05/31/22 [Rx Last Taken Unknown] gabapentin 300 mg capsule 300 mg PO BID #180 caps 06/01/22 [Rx Last Taken Unknown] hydrocodone-acetaminophen 5-325mg 5mg-325mg 1 tab PO Q6H PRN pain 3 days #10 tabs 06/08/22 [Rx Last Taken Unknown] Allergy/AdvReac Type Severity Reaction Status Date / Time amoxicillin trihydrate Allergy Hives Verified 06/08/22 14:11 [From Augmentin] Iodinated Contrast Media Allergy Swelling Verified 06/08/22 14:11 [DYEE] nitrofurantoin Allergy Hives Verified 06/08/22 14:11 macrocrystalline [From Macrodantin] phenazopyridine Allergy Hives Verified 06/08/22 14:11 [From Pyridium] potassium clavulanate Allergy Hives Verified 06/08/22 14:11 [From Augmentin] sulfamethoxazole Allergy Hives Verified 06/08/22 14:11 [From Bactrim] trimethoprim [From Bactrim] Allergy Hives Verified 06/08/22 14:11 STERI-STRIPS Allergy Other Uncoded 06/08/22 14:11 Family History Father Alcoholism CVA (cerebral vascular accident) Mother Cancer Melanoma Grandfather Cancer Grandmother Cancer Other Arthritis Autoimmune disorder Breast cancer Colon cancer Depression Heart disease Hypertension Liver disease Myocardial infarction Ovarian cancer Psychiatric care Thyroid disorder Uterine cancer ulcer disease Surgical History History of appendectomy History of exploratory laparotomy History of oophorectomy History of tonsillectomy Hx of section Hx of hernia repair Hx of hysterectomy Social History household members: none Smoking Status: Current every day smoker tobacco type: cigarettes alcohol intake: never substance use type: marijuana ROS ROS ED Constitutional Constitutional ED: Reports fever(s); Denies chills Eyes Eyes: Denies change in vision or discharge from eye(s) ENT ENT ED: Denies discharge from eye(s), rhinorrhea or sore throat Cardiovascular Cardiovascular: Denies chest pain or palpitations Respiratory/Chest Respiratory/Chest: Denies cough or dyspnea Gastrointestinal Gastrointestinal: Reports abdominal pain; Denies diarrhea, nausea or vomiting Genitourinary Genitourinary ED: Denies difficulty urinating or dysuria Musculoskeletal Musculoskeletal: Denies back pain or extremity pain Integumentary Denies Abrasions or rash Neurologic Neurologic: Denies headache(s) or weakness Psychiatric Psychiatric: Reports anxiety Allergic/Immunologic Allergic/Immunologic ED: Denies lip swelling or urticaria EXAM Physical Exam Const Vital Signs: 06/08/22 14:11 06/08/22 16:16 06/08/22 16:53 Temperature 98.4 F Temperature Source Temporal Pulse Rate 114 H 86 Respiratory Rate 16 16 Respiratory Effort Normal Respiratory Pattern Normal Blood Pressure 123/77 H 130/76 H Blood Pressure Mean 92 94 Pulse Ox 99 99 Oxygen Delivery Method Room Air Room Air Positive well nourished and well developed General Appearance ED: well developed HEENT Reports normocephalic and head/scalp atraumatic Eyes PERRL and EOMs intact bilaterally Neck supple Chest Wall inspection of chest normal and palpation of chest normal Resp normal respiratory effort and clear to auscultation bilaterally Cardio regular rate and regular rhythm GI GI Narrative: Diffuse abdominal tenderness palpation. Hypoactive bowel sounds. Palpation: soft Extremity normal to inspection Neuro oriented x3 and no sensory deficits noted Sensorium / Orientation: alert Motor Exam: strength 5/5 throughout Psych Mood & Affect: anxious and tearful Skin no rashes or lesions noted MDM MDM MDM Narrative Medical decision making narrative: Patient was given morphine and Zofran for pain and nausea. Lab work obtained along with CT scan of the abdomen and pelvis. Lab Data Attestation: I reviewed the patient's lab results. Labs: Laboratory Results - last 24 hr 06/08/22 06/08/22 06/08/22 15:50 15:50 17:00 WBC 9.5 RBC 4.63 Hgb 14.4 Hct 43.2 MCV 93.3 MCH 31.1 MCHC 33.3 RDW Std Deviation 45.4 H RDW Coeff of Sak[place] 13.4 Plt Count 202 MPV 11.5 Immature Gran % (Auto) 0.300 Neut % (Auto) 62.2 Lymph % (Auto) 29.7 [place] % (Auto) 6.1 Eos % (Auto) 1.2 Baso % (Auto) 0.5 Absolute Neuts (auto) 5.9 Absolute Lymphs (auto) 2.81 Nucleated RBC % 0 Sodium 142 Potassium 3.4 L Chloride 111 H Carbon Dioxide 26.0 Anion Gap 5 BUN 7 Creatinine 0.91 Estim Creat Clear Calc 67.41 Est GFR (MDRD) Af Amer 86 Est GFR (MDRD) Non-Af 71 BUN/Creatinine Ratio 7.7 L Glucose 114 H Calcium 9.3 Total Bilirubin 0.30 Direct Bilirubin 0.09 AST 36 ALT 84 H Alkaline Phosphatase 86 Total Protein 7.5 Albumin 3.9 Globulin 3.6 Urine Color Straw Urine Clarity Clear Urine pH 7.0 Ur Specific [place] 1.010 Urine Protein Negative Urine Glucose (UA) Normal Urine Ketones Negative Urine Occult Blood Negative Urine Nitrite Negative Urine Bilirubin Negative Urine Urobilinogen Normal Ur Leukocyte Esterase 25 H Urine RBC 0-5 SEEN Urine WBC 0-5 SEEN Ur Squamous Epith Cells 0-5 SEEN Urine Bacteria 1+ Urine Mucus 0 SEEN Radiography Diagnostic Testing: Clinical Impression(s) from Imaging Studies Abdomen/Pelvis CT 06/08/22 15:31 IMPRESSION: (NOT LISTED IN ORDER OF SIGNIFICANCE) There are no acute findings. Specifically a rectal abnormality is not seen. Other findings as above. Electronically Signed: Zachariah Main MD at 18:10 EDT Reading Location ID and State: [facility] / [place] , Service [place] , Treatment and Re-Evaluation Narrative: CBC and chemistry studies unremarkable. Urinalysis normal. CT of the abdomen pelvis reveals no acute findings. I spoke with Dr. Martino and notified him of the patient's test results. She will be treated with [place] for pain. Return instructions provided. Discharge Plan Triage Chief Complaint: Fever ED Provider: Charity Curran Dx/Rx/DC Orders Clinical Impression: Abdominal pain Instructions: ED Abdominal Pain Unkn Cause Fem Prescriptions: New hydrocodone-acetaminophen 5-325 mg tablet 1 tab PO Q6H PRN (Reason: pain) 3 Days Qty: 10 0RF No Action omeprazole 40 mg capsule,delayed release(DR/EC) 40 mg PO BID Qty: 90 1RF tumeric 1 ea PO DAILY Vitamin C 500 mg PO DAILY Vitamin D3 4,000 iu PO DAILY scopolamine base 1 mg over 3 days patch 3 day 1 patch transdermal Q3D PRN (Reason: nausea and vomiting) Qty: 10 1RF albuterol sulfate 90 mcg/actuation aerosol powdr breath activated 2 inh inhalation Q4H PRN (Reason: shortness of breath or wheezing) Qty: 1 0RF sertraline 100 mg tablet 150 mg PO DAILY Qty: 90 1RF atorvastatin 10 mg tablet 10 mg PO QHS Qty: 30 1RF peg 3350-electrolytes [Golytely] 236-22.74-6.74 -5.86 gram recon soln 240 ml PO Q10M Qty: 4000 0RF Rx Instructions: until fecal effluent is clear gabapentin 300 mg capsule 300 mg PO BID Qty: 180 3RF Primary Care Provider: Neymar Mayo Referrals: Neymar Mayo MD [Primary Care Provider] - Friend,DO Tushar [Med Staff - Active Staff] - 1-2 Weeks Disposition Disposition: Home, Self Care
[2022-06-08] MEDS: 0.9% Normal Saline 1,000 ML 150 ML IV (16:00)
[2022-06-08] MEDS: MethylPREDNISolone 125 MG/2 ML Vial 60 MG IV (16:01)
[2022-06-08] MEDS: Ondansetron 4 MG/2 ML Vial IV ×2 (16:03→16:49)
[2022-06-08] MEDS: Morphine 4 MG/ML Syringe IV ×2 (16:04→16:49)
[2022-06-08 16:05] LABS: Absolute Lymphocyte Count 2.81 X10^3/uL (0.83-4.51); Absolute Neutrophil Count 5.9 X10^3/uL (2.0-7.7); Basophil# 0.05 X10^3/uL; Basophil% 0.5 % (0-1); Eosinophil# 0.11 X10^3/uL; Eosinophils% 1.2 % (0-5); Hematocrit 43.2 % (37-47); Hemoglobin 14.4 g/dL (12.0-15.0); Lymphocyte # 2.81 X10^3/ul (0.83-4.51); Lymphocyte % 29.7 % (19-41); Mean Corp Hgb Conc 33.3 g/dL (32-36); Mean Corpuscular Hgb 31.1 pg (27.0-32.0); Mean Corpuscular Volume 93.3 fL (81-99); Mean Platelet Vol. 11.5 fl (6.2-12.0); Monocyte# 0.58 X10^3/uL; Monocyte% 6.1 % (0-10); NRBC Flagged by Analyzer 0 % (0-5); Neutrophil # 5.87 X10^3/uL (2.7-7.7); Neutrophil % 62.2 % (47-70); Platelet Count 202 K/mm3 (150-450); RBC Distribution Width CV 13.4 % (11.6-14.6); RBC Distribution Width SD 45.4 fl (35.1-43.9); Red Blood Count 4.63 M/mm3 (4.2-5.4); White Blood Count 9.5 K/mm3 (4.4-11.0)
[2022-06-08] MEDS: DiphenhydrAMINE 50 MG/ML Syringe 25 MG IV (16:07)
[2022-06-08 16:29] LABS: AST(SGOT) 36 U/L (15-37); Alanine Aminotransfer ALT/SGPT 84 U/L (13-56); Albumin, Serum 3.9 g/dL (3.2-5.0); Alkaline Phosphatase 86 U/L (45-117); Anion Gap 5 (5-15); BUN 7 mg/dL (7-18); BUN/Creat Ratio 7.7 RATIO (10-20); Bilirubin, Direct 0.09 mg/dL (0.00-0.30); Calcium,Total 9.3 mg/dL (8.5-10.1); Chloride 111 mmol/L (98-107); Creatinine, Serum 0.91 mg/dL (0.55-1.02); EST Glomerular Filtration Rate 71 mL/min (>60); Est Glom Filt Rate - Afr Amer 86 mL/min (>60); Estimated Creatinine Clearance 67.41 ml/min; Globulin 3.6 g/dL (2.2-4.2); Glucose 114 mg/dL (74-106); Potassium 3.4 mmol/L (3.5-5.1); Protein, Total 7.5 g/dL (6.4-8.2); Sodium Level 142 mmol/L (136-145)
[2022-06-08 16:53] VITALS: BP 130/76; PULSE 86; RESP 16; O2SAT 99
[2022-06-08 17:20] LABS: Mucous, Urine 0 SEEN /hpf (<or=2+)
[2022-06-08 17:23] LABS: Color, Urine Straw (Yellow); Glucose, Dipstick Normal (Normal); Ketone-Dipstick Negative (Negative); Leukocyte Esterase-Dipstick 25 /ul (Negative); Nitrite-Dipstick Negative (Negative); Occult Blood-Urine Negative /ul (Negative); Protein-Dipstick Negative (Negative); Urine Bilirubin Dipstick Negative (Negative); Urine Clarity Clear (Clear); Urine Urobilinogen Normal (Normal)
[2022-06-08 17:40] LABS: Bacteria 1+ /hpf (None Seen); Red Blood Cells-Urine 0-5 SEEN /hpf (0-5); Squamous Epithelial Cells - UA 0-5 SEEN /hpf (5-10); White Blood Cells 0-5 SEEN /hpf (0-5)
== END 2022-06-08 19:30 | disposition home or self-care (01) ==
PROVIDERS: Emergency Provider Emergency Medicine; PCP Internal Medicine; Visit Provider Emergency Medicine
DX: R10.9 Unspecified abdominal pain (principal); M32.9 Systemic lupus erythematosus, unspecified; R50.9 Fever, unspecified; E78.00 Pure hypercholesterolemia, unspecified; I10 Essential (primary) hypertension; Z98.890 Other specified postprocedural states; M79.7 Fibromyalgia; K60.2 Anal fissure, unspecified; K21.9 Gastro-esophageal reflux disease without esophagitis; M19.90 Unspecified osteoarthritis, unspecified site; K75.81 Nonalcoholic steatohepatitis (NASH); Z79.899 Other long term (current) drug therapy
CPT/HCPCS: 74177; 80048; 80076; 81001; 85025; 87040; 96374; 96375; 96376; 99283; J7030; Q9967; A4216; J2405

== ENCOUNTER 2022-07-27 17:36 | Emergency (ER) | payer OTHER, MEDICAID, SELFPAY ==
[2022-07-27 17:38] VITALS: BP 138/115; PULSE 100; RESP 19; TEMP 36.3; O2SAT 99; BMI 30.9
--- NOTE | 2022-07-27 17:59 | EDS_ITS ---
HPI History of Present Illness Chief Complaint: Allergic Reaction Informant: patient Onset/Context/Timing Onset: Today Context: Gradual Onset Current Severity: Moderate Maximum Severity: Moderate Narrative Narrative: Patient presents with allergic reaction to nuts. She has an allergy to tree nuts. She got a chicken salad sandwich but did not have any nuts listed in the ingredients. After she ate it she began to break out and believes it was walnuts in the sandwich. She complains of burning sensation to her skin all over. She denies shortness of breath. She does not feel she is wheezing. She took 25 mg of p.o. Benadryl and 40 mg of p.o. Pepcid prior to evaluation. [facility] Medical History Anal fissure Anxiety and depression Arthritis Cervical radiculopathy Contact dermatitis Depression Fatty liver Fibromyalgia Gastric reflux GI problem Headache, migraine 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 High cholesterol History of pneumonia History of stress test Hyperlipidemia Hypertension Injury of back Left shoulder pain Left shoulder tendinitis Liver disease Lupus Menopausal hot flushes POWELL (nonalcoholic steatohepatitis) Oral thrush Rectal prolapse Restless legs Smoker Vaginal kushal Home Medications omeprazole 40 mg capsule,delayed release 40 mg PO BID #90 caps 12/19/20 [Rx Last Taken Unknown] Vitamin C 500 mg PO DAILY 06/29/21 [History Last Taken Unknown] Vitamin D3 4,000 iu PO DAILY 06/29/21 [History Last Taken Unknown] tumeric 1 ea PO DAILY 06/29/21 [History Last Taken Unknown] scopolamine base 1 mg over 3 days transdermal patch 1 patch transdermal Q3D PRN nausea and vomiting #10 ea 12/04/21 [Rx Last Taken Unknown] albuterol sulfate 90 mcg/actuation breath activated powder inhaler 2 inh inhalation Q4H PRN shortness of breath or wheezing #1 ea 03/03/22 [Rx Last Taken Unknown] peg 3350-electrolytes 236 gram-22.74 gram-6.74 gram-5.86 gram solution (Golytely) 240 ml PO Q10M #4,000 mL 05/31/22 [Rx Last Taken Unknown] gabapentin 300 mg capsule 300 mg PO BID #180 caps 06/01/22 [Rx Last Taken Unknown] atorvastatin 20 mg tablet 20 mg PO QHS #90 tabs 06/28/22 [Rx Last Taken Unknown] buspirone 5 mg tablet 5 mg PO BID #60 tabs 06/28/22 [Rx Last Taken Unknown] paroxetine HCl 40 mg tablet 40 mg PO DAILY #30 tabs 06/28/22 [Rx Last Taken Unknown] prednisone 20 mg tablet 40 mg PO DAILY #8 tabs 07/27/22 [Rx Last Taken Unknown] Allergy/AdvReac Type Severity Reaction Status Date / Time amoxicillin trihydrate Allergy Hives Verified 07/27/22 17:39 [From Augmentin] Iodinated Contrast Media Allergy Swelling Verified 07/27/22 17:39 [DYEE] nitrofurantoin Allergy Hives Verified 07/27/22 17:39 macrocrystalline [From Macrodantin] phenazopyridine Allergy Hives Verified 07/27/22 17:39 [From Pyridium] potassium clavulanate Allergy Hives Verified 07/27/22 17:39 [From Augmentin] sulfamethoxazole Allergy Hives Verified 07/27/22 17:39 [From Bactrim] tree nut Allergy Hives Verified 07/27/22 17:39 trimethoprim [From Bactrim] Allergy Hives Verified 07/27/22 17:39 STERI-STRIPS Allergy Other Uncoded 07/27/22 17:39 Family History Father Alcoholism CVA (cerebral vascular accident) Mother Cancer Melanoma Grandfather Cancer Grandmother Cancer Other Arthritis Autoimmune disorder Breast cancer Colon cancer Depression Heart disease Hypertension Liver disease Myocardial infarction Ovarian cancer Psychiatric care Thyroid disorder Uterine cancer ulcer disease Surgical History History of appendectomy History of exploratory laparotomy History of oophorectomy History of tonsillectomy Hx of section Hx of hernia repair Hx of hysterectomy Social History household members: none Smoking Status: Current every day smoker tobacco type: cigarettes alcohol intake: never substance use type: marijuana ROS ROS ED Constitutional Constitutional ED: Denies chills or fever(s) Eyes Eyes: Denies change in vision or discharge from eye(s) ENT ENT ED: Denies discharge from eye(s), rhinorrhea or sore throat Cardiovascular Cardiovascular: Denies chest pain or palpitations Respiratory/Chest Respiratory/Chest: Denies cough or dyspnea Gastrointestinal Gastrointestinal: Denies abdominal pain, nausea or vomiting Musculoskeletal Musculoskeletal: Denies back pain or extremity pain Integumentary Reports rash; Denies Abrasions Neurologic Neurologic: Denies headache(s) or weakness Psychiatric Psychiatric: Denies anxiety or depression Allergic/Immunologic Allergic/Immunologic ED: Reports urticaria; Denies lip swelling or mouth swelling EXAM Physical Exam Narrative Exam Narrative: Space with a strong voice and tolerating secretions well. Const Vital Signs: 07/27/22 17:38 07/27/22 18:53 Temperature 97.3 F L Temperature Source Temporal Pulse Rate 100 81 Respiratory Rate 19 H 18 Blood Pressure 138/115 H Blood Pressure Mean 122 Pulse Ox 99 94 Oxygen Delivery Method Room Air Room Air Positive well nourished and well developed General Appearance ED: well developed HEENT Reports normocephalic and head/scalp atraumatic Eyes PERRL and EOMs intact bilaterally Neck supple Chest Wall inspection of chest normal and palpation of chest normal Resp normal respiratory effort and clear to auscultation bilaterally Cardio regular rate and regular rhythm GI non-tender Auscultation: hypoactive bowel sounds Palpation: soft Back/Spine no CVA tenderness Extremity normal to inspection Neuro oriented x3 and no sensory deficits noted Sensorium / Orientation: alert Motor Exam: strength 5/5 throughout Psych mental status grossly normal Skin Skin Narrative: Mild generalized erythema. MDM MDM MDM Narrative Medical decision making narrative: Patient is placed on cardiac monitor technician. IV Benadryl and Solu-Medrol given. She had taken appropriate dose of Pepcid prior to evaluation. Treatment and Re-Evaluation Narrative: Patient was observed for period of 2 hours. She feels much improved and has had no further symptoms. Discharge Plan Triage Chief Complaint: Allergic Reaction ED Provider: Charity Curran Dx/Rx/DC Orders Clinical Impression: Allergic reaction Instructions: ED General Allergic Reactions Prescriptions: New prednisone 20 mg tablet 40 mg PO DAILY Qty: 8 0RF No Action omeprazole 40 mg capsule,delayed release(DR/EC) 40 mg PO BID Qty: 90 1RF tumeric 1 ea PO DAILY Vitamin C 500 mg PO DAILY Vitamin D3 4,000 iu PO DAILY scopolamine base 1 mg over 3 days patch 3 day 1 patch transdermal Q3D PRN (Reason: nausea and vomiting) Qty: 10 1RF albuterol sulfate 90 mcg/actuation aerosol powdr breath activated 2 inh inhalation Q4H PRN (Reason: shortness of breath or wheezing) Qty: 1 0RF atorvastatin 20 mg tablet 20 mg PO QHS Qty: 90 1RF paroxetine HCl 40 mg tablet 40 mg PO DAILY Qty: 30 1RF Rx Instructions: Take 1/2 tablet for 1 week then increase to 1 tablet. buspirone 5 mg tablet 5 mg PO BID Qty: 60 1RF peg 3350-electrolytes [Golytely] 236-22.74-6.74 -5.86 gram recon soln 240 ml PO Q10M Qty: 4000 0RF Rx Instructions: until fecal effluent is clear gabapentin 300 mg capsule 300 mg PO BID Qty: 180 3RF Primary Care Provider: Neymar Mayo Referrals: Neymar Mayo MD [Primary Care Provider] - As Needed Disposition Disposition: Home, Self Care
[2022-07-27] MEDS: MethylPREDNISolone 125 MG/2 ML Vial IV (18:04)
[2022-07-27] MEDS: DiphenhydrAMINE 50 MG/ML Syringe 25 MG IV (18:04)
[2022-07-27] MEDS: 0.9% Normal Saline 1,000 ML 999 ML IV (18:25)
[2022-07-27 18:53] VITALS: PULSE 81; RESP 18; O2SAT 94
[2022-07-27 20:49] VITALS: BP 124/63; PULSE 72; RESP 18; O2SAT 96
== END 2022-07-27 20:55 | disposition home or self-care (01) ==
PROVIDERS: Emergency Provider Emergency Medicine; PCP Internal Medicine; Visit Provider Emergency Medicine
DX: T78.40XA Allergy, unspecified, initial encounter (principal); E78.00 Pure hypercholesterolemia, unspecified; F17.210 Nicotine dependence, cigarettes, uncomplicated; F12.90 Cannabis use, unspecified, uncomplicated; F41.9 Anxiety disorder, unspecified; F32.A Depression, unspecified; K76.0 Fatty (change of) liver, not elsewhere classified; K21.9 Gastro-esophageal reflux disease without esophagitis; Z79.899 Other long term (current) drug therapy; X58.XXXA Exposure to other specified factors, initial encounter
CPT/HCPCS: 96374; 96375; 99283; J7030; A4216

== ENCOUNTER 2022-07-28 00:31 | Emergency (ER) | payer OTHER, MEDICAID, SELFPAY ==
[2022-07-28 00:32] VITALS: BP 173/91; PULSE 97; RESP 22; TEMP 36.8; O2SAT 98; BMI 33.3
--- NOTE | 2022-07-28 01:08 | RAD_ITS ---
STUDY: X-RAY CHEST REASON FOR EXAM: Female, 47 years old. cp/sob TECHNIQUE: AP portable. 1:18 AM COMPARISON: 07/29/2021. FINDINGS: LUNGS: No consolidation. No pneumothorax. MEDIASTINUM: Unremarkable. CARDIAC SILHOUETTE: Not enlarged. BONES AND SOFT TISSUES: No acute abnormalities. RAD/Chest 1 View (Portable) IMPRESSION: No evidence of active intrathoracic disease. Electronically Signed: Lynn Oliver MD at 1:54 EST ,
[2022-07-28 01:32] VITALS: BP 133/77; PULSE 92; RESP 16; O2SAT 98
[2022-07-28] MEDS: Epi Pen (EQUIV) 0.3 MG Syringe IM (01:39)
--- NOTE | 2022-07-28 02:20 | ED.VIS.CHEST ---
HPI History of Present Illness Chief Complaint: Chest Pain Informant: patient Onset/Context/Timing Onset: Hours (1-2) Activity at onset: gradual and onset Timing: Continuous Quality: Positive for Tightness Location: Substernal Current Severity: Severe Maximum Severity: Severe Worsened By: Nothing Relieved By: Nothing Associated Symptoms: Positive for Dyspnea, Palpitations and - (throat tightness); Negative for Nausea, Vomiting, Diaphoresis, Cough, Fever or Lightheadedness Narrative Narrative: Patient accidentally ate some pecans earlier, which were in a sandwich that she bought here at the hospital that did not have them listed as an ingredient; she is allergic to nuts. She was seen here and was treated for symptoms including feeling hot all over, some throat tightness, she was given Benadryl, Pepcid, Solu-Medrol. She went home and was feeling sleepy from the Benadryl, drinking water, she gradually developed a bifrontal headache and chest tightness a while later that has progressed. She also felt a couple of palpitations that were not persistent, they felt like a skipped and a thump. This happened a couple times. She denies any lightheadedness or near syncope/syncope. No fevers. She has had a little dyspnea with the chest tightness. She has not an asthmatic. She denies any other new symptoms such as swelling in her extremities, hives, pruritus. No history of anaphylactic reactions from tree nuts in the past but she has had reactions that are more mild. She took ibuprofen 600 mg for the headache prior to coming here. [facility] Medical History Anal fissure Anxiety and depression Arthritis Cervical radiculopathy Contact dermatitis Depression Fatty liver Fibromyalgia Gastric reflux GI problem Headache, migraine 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 High cholesterol History of pneumonia History of stress test Hyperlipidemia Hypertension Injury of back Left shoulder pain Left shoulder tendinitis Liver disease Lupus Menopausal hot flushes POWELL (nonalcoholic steatohepatitis) Oral thrush Rectal prolapse Restless legs Smoker Vaginal kushal Home Medications omeprazole 40 mg capsule,delayed release 40 mg PO BID #90 caps 12/19/20 [Rx Last Taken Unknown] Vitamin C 500 mg PO DAILY 06/29/21 [History Last Taken Unknown] Vitamin D3 4,000 iu PO DAILY 06/29/21 [History Last Taken Unknown] tumeric 1 ea PO DAILY 06/29/21 [History Last Taken Unknown] scopolamine base 1 mg over 3 days transdermal patch 1 patch transdermal Q3D PRN nausea and vomiting #10 ea 12/04/21 [Rx Last Taken Unknown] albuterol sulfate 90 mcg/actuation breath activated powder inhaler 2 inh inhalation Q4H PRN shortness of breath or wheezing #1 ea 03/03/22 [Rx Last Taken Unknown] peg 3350-electrolytes 236 gram-22.74 gram-6.74 gram-5.86 gram solution (Golytely) 240 ml PO Q10M #4,000 mL 05/31/22 [Rx Last Taken Unknown] gabapentin 300 mg capsule 300 mg PO BID #180 caps 06/01/22 [Rx Last Taken Unknown] atorvastatin 20 mg tablet 20 mg PO QHS #90 tabs 06/28/22 [Rx Last Taken Unknown] buspirone 5 mg tablet 5 mg PO BID #60 tabs 06/28/22 [Rx Last Taken Unknown] paroxetine HCl 40 mg tablet 40 mg PO DAILY #30 tabs 06/28/22 [Rx Last Taken Unknown] prednisone 20 mg tablet 40 mg PO DAILY #8 tabs 07/27/22 [Rx Last Taken Unknown] epinephrine 0.3 mg/0.3 mL injection, auto-injector (EpiPen 2-Tahir) 0.3 mg (0.3 mL) IM Q4H PRN anaphylaxis #2 ea 07/28/22 [Rx Last Taken Unknown] Allergy/AdvReac Type Severity Reaction Status Date / Time amoxicillin trihydrate Allergy Hives Verified 07/28/22 01:32 [From Augmentin] Iodinated Contrast Media Allergy Swelling Verified 07/28/22 01:32 [DYEE] nitrofurantoin Allergy Hives Verified 07/28/22 01:32 macrocrystalline [From Macrodantin] phenazopyridine Allergy Hives Verified 07/28/22 01:32 [From Pyridium] potassium clavulanate Allergy Hives Verified 07/28/22 01:32 [From Augmentin] sulfamethoxazole Allergy Hives Verified 07/28/22 01:32 [From Bactrim] tree nut Allergy Hives Verified 07/28/22 01:32 trimethoprim [From Bactrim] Allergy Hives Verified 07/28/22 01:32 STERI-STRIPS Allergy Other Uncoded 07/28/22 01:32 Family History Father Alcoholism CVA (cerebral vascular accident) Mother Cancer Melanoma Grandfather Cancer Grandmother Cancer Other Arthritis Autoimmune disorder Breast cancer Colon cancer Depression Heart disease Hypertension Liver disease Myocardial infarction Ovarian cancer Psychiatric care Thyroid disorder Uterine cancer ulcer disease Surgical History History of appendectomy History of exploratory laparotomy History of oophorectomy History of tonsillectomy Hx of section Hx of hernia repair Hx of hysterectomy Social History household members: none Smoking Status: Current every day smoker tobacco type: cigarettes alcohol intake: never substance use type: marijuana ROS ROS ED Constitutional Constitutional ED: Denies chills or fever(s) Eyes Eyes: Denies change in vision or diplopia ENT ENT ED: Reports throat swelling; Denies rhinorrhea or sore throat Cardiovascular Cardiovascular: Reports chest pain and palpitations Respiratory/Chest Respiratory/Chest: Reports dyspnea; Denies cough Gastrointestinal Gastrointestinal: Denies abdominal pain, diarrhea, nausea or vomiting Genitourinary Genitourinary ED: Denies dysuria or hematuria Musculoskeletal Musculoskeletal: Denies back pain or neck pain Integumentary Denies abscess or rash Neurologic Neurologic: Reports headache(s); Denies paresthesias or weakness Psychiatric Psychiatric: Reports anxiety; Denies suicidal thoughts EXAM Physical Exam Const Vital Signs: 07/28/22 00:32 07/28/22 01:32 07/28/22 01:53 Temperature 98.2 F Temperature Source Oral Pulse Rate 97 92 Respiratory Rate 22 H 16 Respiratory Effort Normal Non-Labored Blood Pressure 173/91 H 133/77 H Blood Pressure Mean 118 95 Pulse Ox 98 98 Oxygen Delivery Method Room Air Room Air Positive well nourished and well developed General Appearance ED: well developed and NAD HEENT Reports moist mucous membranes normocephalic and atraumatic Eyes PERRL and EOMs intact bilaterally Neck full ROM and supple Resp normal respiratory effort and clear to auscultation bilaterally Cardio regular rate, regular rhythm and no murmurs GI non-tender and non-distended Auscultation: normoactive bowel sounds Palpation: soft Back/Spine no CVA tenderness General Back: other FROM Extremity normal to inspection General Extremety ED: Negative for edema, pulses abnormal or tenderness General Extremity: Negative for edema or pulses abnormal Neuro oriented x3, CN's II-XII intact bilaterally and no sensory deficits noted Sensorium / Orientation: awake and alert Motor Exam: strength 5/5 throughout Psych mental status grossly normal Mood & Affect: anxious Skin no rashes or lesions noted and no wounds MDM MDM MDM Narrative Medical decision making narrative: And considering the more likely event that the patient is having an anaphylactoid reaction to the tree nuts, that was suppressed with the medication she received earlier partially/temporarily, I initially treated her with an EpiPen injection, 0.3 mg. This completely resolved her chest tightness and dyspnea, although she had some mild side effects from the injection which are expected such as tremulousness and feeling a little anxious and agitated. Her blood pressure came down as a result, and her headache felt better, and she was observed for a while about an hour after the epinephrine was given. I advised waiting a little longer, she preferred to go home to rest, which I am fine with given her clinical and hemodynamic stability, on the terms that she waits until she fills the epinephrine pen prescription here prior to going home which she was comfortable doing. We discussed using them for recurrent symptoms rather than Benadryl since I think this is an anaphylactoid reaction. We discussed reasons to return. Radiography Diagnostic Testing: Clinical Impression(s) from Imaging Studies Chest X-Ray 07/28/22 01:08 IMPRESSION: No evidence of active intrathoracic disease. 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 Direct Patient Care at Bedside Discharge Plan Triage Chief Complaint: Chest Pain ED Provider: Andrew Preston Dx/Rx/DC Orders Clinical Impression: Anaphylactoid reaction due to food, Chest pain, unspecified Instructions: ED Food Allergy, ED Using an Injection Pen Prescriptions: New epinephrine [EpiPen 2-Tahir] 0.3 mg/0.3 mL auto-injector 0.3 mg IM Q4H PRN (Reason: anaphylaxis) Qty: 2 0RF No Action omeprazole 40 mg capsule,delayed release(DR/EC) 40 mg PO BID Qty: 90 1RF tumeric 1 ea PO DAILY Vitamin C 500 mg PO DAILY Vitamin D3 4,000 iu PO DAILY scopolamine base 1 mg over 3 days patch 3 day 1 patch transdermal Q3D PRN (Reason: nausea and vomiting) Qty: 10 1RF albuterol sulfate 90 mcg/actuation aerosol powdr breath activated 2 inh inhalation Q4H PRN (Reason: shortness of breath or wheezing) Qty: 1 0RF atorvastatin 20 mg tablet 20 mg PO QHS Qty: 90 1RF paroxetine HCl 40 mg tablet 40 mg PO DAILY Qty: 30 1RF Rx Instructions: Take 1/2 tablet for 1 week then increase to 1 tablet. buspirone 5 mg tablet 5 mg PO BID Qty: 60 1RF prednisone 20 mg tablet 40 mg PO DAILY Qty: 8 0RF peg 3350-electrolytes [Golytely] 236-22.74-6.74 -5.86 gram recon soln 240 ml PO Q10M Qty: 4000 0RF Rx Instructions: until fecal effluent is clear gabapentin 300 mg capsule 300 mg PO BID Qty: 180 3RF Primary Care Provider: Neymar Mayo Referrals: Neymar Mayo MD [Primary Care Provider] - As Needed Disposition Disposition: Home, Self Care
[2022-07-28 03:06] VITALS: PULSE 90; RESP 16; O2SAT 99
== END 2022-07-28 03:06 | disposition home or self-care (01) ==
PROVIDERS: Emergency Provider Emergency Medicine; PCP Internal Medicine; Visit Provider Emergency Medicine
DX: T78.00XA Anaphylactic reaction due to unspecified food, initial encounter (principal); R07.9 Chest pain, unspecified; I10 Essential (primary) hypertension; E78.5 Hyperlipidemia, unspecified; R06.00 Dyspnea, unspecified; F17.210 Nicotine dependence, cigarettes, uncomplicated; X58.XXXA Exposure to other specified factors, initial encounter
CPT/HCPCS: 71045; 93005; 99282; A4216

== ENCOUNTER 2022-09-26 18:07 | Emergency (ER) | payer OTHER, MEDICAID, SELFPAY ==
[2022-09-26 18:08] VITALS: BP 151/80; PULSE 95; RESP 16; TEMP 35.7; O2SAT 99; BMI 31.2
--- NOTE | 2022-09-26 18:34 | RAD_ITS ---
STUDY: X-RAY - LEFT SHOULDER REASON FOR EXAM: Female, 47 years old. Follow-up walking up stairs. Injury to left shoulder. Pain runs down the left arm with numbness and tingling of fingers. TECHNIQUE: 2 view(s) of the shoulder. COMPARISON: None. FINDINGS: Normal glenohumeral articulation. Normal acromioclavicular joint. Normal acromion. There is no acute fracture, dislocation or destructive osseous pathology. Normal humeral head and visualized proximal humerus. The soft tissue structures are unremarkable. Normal visualized pulmonary apex. RAD/Shoulder min 2 Views IMPRESSION: Normal x-ray examination of the left shoulder. Electronically Signed: Haider Black DO at 19:18 EST ,
--- NOTE | 2022-09-26 18:34 | CT_ITS ---
STUDY: CT BRAIN WITHOUT CONTRAST REASON FOR EXAM: Female, 47 years old. fall/trauma RADIATION DOSAGE (If Supplied By Facility): CTDIvol = ( 44.99 ) mGy, DLP = ( 829.85 ) mGycm TECHNIQUE: Transaxial CT imaging of the brain was performed without administration of intravenous contrast material. Individualized dose optimization techniques were used for this CT. COMPARISON: CT head 01/01/2021. FINDINGS: Normal soft tissue structures. Normal calvarium. Normal size ventricles and extra-axial spaces for the patient''s age. Normal white matter tracts of the cerebral hemispheres. Normal basal ganglia and thalami. Normal brainstem. Normal cerebellum. There is no intracranial hemorrhage. There are no findings of an acute ischemic infarction. Normal visualized paranasal sinuses. CT/Brain/Head without Contrast IMPRESSION: Normal unenhanced CT scan of the brain. Electronically Signed: Sherley Magallanes MD at 19:29 EST Reading Location ID and State: [id number] / Tel , Service support ,
--- NOTE | 2022-09-26 18:37 | EDS_ITS ---
HPI HPI - Fall History of Present Illness Chief Complaint: Fall Informant: patient Occured/Mechanism Occurred: Today Mechanism/Context: Yes same level fall and Yes slip Narrative: Slipped on wet floor, falling to her left shoulder, as well as her left temporal head Narrative Narrative: Patient had a mechanical fall after slipping on wet floor. She was inside. She mainly injured her left shoulder, the pain radiates down to the elbow and of the lateral aspect of her neck, she also hit the left side of her head. She states she was dazed but did not lose consciousness, she has had no nausea or vomiting, but she has some mild blurry vision and photophobia as well as a headache now. She denies any other injury. She has been ambulatory. [id number]. [facility] Medical History Anal fissure Anxiety and depression Arthritis Cervical radiculopathy Contact dermatitis Depression Fatty liver Fibromyalgia Gastric reflux GI problem Headache, migraine 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 High cholesterol History of pneumonia History of stress test Hyperlipidemia Hypertension Injury of back Left shoulder pain Left shoulder tendinitis Liver disease Lupus Menopausal hot flushes POWELL (nonalcoholic steatohepatitis) Oral thrush Rectal prolapse Restless legs Smoker Vaginal kushal Home Medications omeprazole 40 mg capsule,delayed release 40 mg PO BID #90 caps 12/19/20 [Rx Last Taken Unknown] Vitamin C 500 mg PO DAILY 06/29/21 [History Last Taken Unknown] atorvastatin 20 mg tablet 20 mg PO QHS #90 tabs 06/28/22 [Rx Last Taken Unknown] epinephrine 0.3 mg/0.3 mL injection, auto-injector (EpiPen 2-Tahir) 0.3 mg (0.3 mL) IM Q4H PRN anaphylaxis #2 ea 07/28/22 [Rx Last Taken Unknown] amlodipine 5 mg tablet 5 mg PO DAILY #30 tabs 09/14/22 [Rx Last Taken Unknown] buspirone 10 mg tablet 10 mg PO BID #60 tabs 09/14/22 [Rx Last Taken Unknown] hydroxyzine HCl 25 mg tablet 25 mg PO QHS Anxiety #5 tabs 09/14/22 [Rx Last Taken Unknown] multivitamin 1 tab PO DAILY 09/14/22 [History Last Taken Unknown] paroxetine HCl 40 mg tablet 40 mg PO DAILY #60 tabs 09/14/22 [Rx Last Taken Unknown] ibuprofen 600 mg tablet 600 mg PO Q8H PRN PRN pain #16 TABLETS 09/26/22 [Rx Last Taken Unknown] Allergy/AdvReac Type Severity Reaction Status Date / Time amoxicillin trihydrate Allergy Hives Verified 07/28/22 01:32 [From Augmentin] Iodinated Contrast Media Allergy Swelling Verified 07/28/22 01:32 [DYEE] nitrofurantoin Allergy Hives Verified 07/28/22 01:32 macrocrystalline [From Macrodantin] phenazopyridine Allergy Hives Verified 07/28/22 01:32 [From Pyridium] potassium clavulanate Allergy Hives Verified 07/28/22 01:32 [From Augmentin] sulfamethoxazole Allergy Hives Verified 07/28/22 01:32 [From Bactrim] tree nut Allergy Hives Verified 07/28/22 01:32 trimethoprim [From Bactrim] Allergy Hives Verified 07/28/22 01:32 gabapentin Allergy Intermediate Pain in Uncoded 09/14/22 09:05 joints STERI-STRIPS Allergy Other Uncoded 07/28/22 01:32 Family History Father Alcoholism CVA (cerebral vascular accident) Mother Cancer Melanoma Grandfather Cancer Grandmother Cancer Other Arthritis Autoimmune disorder Breast cancer Colon cancer Depression Heart disease Hypertension Liver disease Myocardial infarction Ovarian cancer Psychiatric care Thyroid disorder Uterine cancer ulcer disease Surgical History History of appendectomy History of exploratory laparotomy History of oophorectomy History of tonsillectomy Hx of section Hx of hernia repair Hx of hysterectomy Social History household members: none Smoking Status: Current every day smoker tobacco type: cigarettes alcohol intake: never substance use type: marijuana ROS ROS ED Constitutional Constitutional ED: Denies chills or fever(s) Eyes Eyes: Reports blurry vision and photophobia; Denies diplopia ENT ENT ED: Denies ear pain, epistaxis, facial pain or rhinorrhea Cardiovascular Cardiovascular: Denies chest pain or palpitations Respiratory/Chest Respiratory/Chest: Denies cough or dyspnea Gastrointestinal Gastrointestinal: Denies abdominal pain, diarrhea, melena, nausea or vomiting Genitourinary Genitourinary ED: Denies dysuria or hematuria Musculoskeletal Musculoskeletal: Reports extremity pain and neck pain; Denies back pain Integumentary Denies abscess, Abrasions, laceration or rash Neurologic Neurologic: Reports headache(s); Denies confusion, paresthesias or weakness EXAM Physical Exam Const Vital Signs: 09/26/22 18:08 09/26/22 18:53 Temperature 96.2 F L Temperature Source Temporal Pulse Rate 95 Respiratory Rate 16 Respiratory Effort Normal Non-Labored Respiratory Depth Normal Respiratory Pattern Normal Blood Pressure 151/80 H Blood Pressure Mean 103 Pulse Ox 99 Oxygen Delivery Method Room Air Room Air Positive well nourished and well developed General Appearance ED: well developed and NAD HEENT Reports TM's clear and nasal mucous membranes and turbinates normal HEENT Narrative: Tender left temporal scalp without hematoma or obvious signs of trauma. No vanessa le sign. No CSF otorhinorrhea. No hemotympanum. No facial trauma/tenderness. atraumatic Face and Sinus: Negative for facial tenderness Tympanic Membrane ED: Yes TM's clear Eyes PERRL and EOMs intact bilaterally Visual Acuity: other Other Details: no entrapment or pain with extraocular mo vements Neck full ROM and supple Neck Narrative: Mild tenderness lateral soft tissues of the neck in the scalene and sternocleidomastoid area, there is no posterior neck tenderness including midline, no step-off, no limitations with regards to range of motion. General: tenderness Chest Wall inspection of chest normal and palpation of chest normal Chest: symmetrical chest wall rise; Negative for crepitus or tenderness Resp normal respiratory effort and clear to auscultation bilaterally Percussion: other equal BS bilat Cardio no murmurs Rate: regular rate Rhythm: regular rhythm Back/Spine normal ROM Cervical Spine: Negative for cervical spine tenderness Thoracic Spine / Upper Back: Negative for thoracic spinal tenderness Lumbar Spine / Lower Back: Negative for lumbar spinal tenderness Extremity full ROM Extremity Narrative: Tender diffusely around the left shoulder girdle including the left proximal humerus, acromion, clavicle lateral third, and the acromioclavicular joint. Limited range of motion due to pain, no deformities. Tender all the way down the humerus to the elbow and including bony prominences of the elbow. Limited range of motion of the elbow due to pain. Nontender distal to the left elbow. General Extremety ED: Yes tenderness Neuro oriented x3, CN's II-XII intact bilaterally, moves all extremities, no focal motor deficits and no sensory deficits noted Neuro Narrative: Subjective paresthesias in the left index and middle finger, no objective loss of sensation and cap refill. Adonis Coma Scale: document GCS findings Spontaneous Obeys Commands Oriented 15 Sensorium / Orientation: awake and alert Psych mental status grossly normal and thought process normal Skin no wounds Lesions: no lesions Rashes: no rashes MDM MDM MDM Narrative Medical decision making narrative: Three-view x-ray series of left shoulder negative on my interpretation, 2 view x-ray series of the left humerus negative on my interpretation, and I reviewed the images of the CT head which appear to be normal. My interpretation of the CT agrees with that of the radiologist. Radiology in agreement that the x-rays are normal as well. Patient is having pain throughout the left shoulder girdle. Differential here includes rotator cuff injury, traumatic bursitis, grade 1 acromioclavicular injury. Treatment for these for now would be symptom control, anti-inflammatories, ice as needed, rest, and a sling which was given to her. We discussed range of motion exercises to do if she is staying in the sling the majority of the day which she does not intend to do. If she does not have sympt oms resolving or improving after 1 to 2 weeks I recommend follow-up with orthopedic she is comfortable with that plan. Radiography Diagnostic Testing: Clinical Impression(s) from Imaging Studies Brain CT 09/26/22 18:34 IMPRESSION: Normal unenhanced CT scan of the brain. Electronically Signed: Sherley Magallanes MD at 19:29 EST Reading Location ID and State: [id number] / Tel , Service support , Shoulder X-Ray 09/26/22 18:34 IMPRESSION: Normal x-ray examination of the left shoulder. Electronically Signed: Haider Black DO at 19:18 EST , Humerus X-Ray 09/26/22 18:55 IMPRESSION: Negative. Electronically Signed: Sherley Magallanes MD at 19:48 EST Reading Location ID and State: [id number] / Tel , Service support , Discharge Plan Triage Chief Complaint: Fall ED Provider: Andrew Preston Dx/Rx/DC Orders Clinical Impression: Injury of left shoulder, Closed head injury, Fall from slipping on wet surface Instructions: ED Sprain AC Joint, ED Shoulder Impingement Syndrome Prescriptions: New ibuprofen 600 mg tablet 600 mg PO Q8H PRN PRN (Reason: pain) Qty: 16 0RF No Action omeprazole 40 mg capsule,delayed release(DR/EC) 40 mg PO BID Qty: 90 1RF Vitamin C 500 mg PO DAILY atorvastatin 20 mg tablet 20 mg PO QHS Qty: 90 1RF multivitamin Tablet 1 tab PO DAILY paroxetine HCl 40 mg tablet 40 mg PO DAILY Qty: 60 1RF buspirone 10 mg tablet 10 mg PO BID Qty: 60 1RF amlodipine 5 mg tablet 5 mg PO DAILY Qty: 30 1RF hydroxyzine HCl 25 mg tablet 25 mg PO QHS Qty: 5 0RF epinephrine [EpiPen 2-Tahir] 0.3 mg/0.3 mL auto-injector 0.3 mg IM Q4H PRN (Reason: anaphylaxis) Qty: 2 0RF Primary Care Provider: Neymar Mayo Referrals: Neymar Mayo MD [Primary Care Provider] - Scott Varela MD [Med Staff - Active Staff] - 10-14 Days if not better Disposition Disposition: Home, Self Care
--- NOTE | 2022-09-26 18:55 | RAD_ITS ---
INDICATION: fall/injury EXAMINATION/TECHNIQUE: X-RAY - LEFT XR Humerus Min 2 Views 2 VIEWS COMPARISON: None. FINDINGS: SOFT TISSUES: No soft tissue swelling or gas. No radiopaque foreign body. BONES/JOINTS: No acute fracture or subluxation.. Normal alignment. Preservation of the joint space.. No sclerotic or destructive changes observed. RAD/Humerus min 2 Views IMPRESSION: Negative. Electronically Signed: Sherley Magallnaes MD at 19:48 EST Reading Location ID and State: [id number] / Tel , Service support ,
[2022-09-26] MEDS: HYDROcodone Bitartrate/Apap 5/325 Tablet PO (19:03)
[2022-09-26] MEDS: Ibuprofen 600 MG Tablet PO (20:07)
== END 2022-09-26 20:27 | disposition home or self-care (01) ==
PROVIDERS: Emergency Provider Emergency Medicine; PCP Internal Medicine; Visit Provider Emergency Medicine
DX: S09.90XA Unspecified injury of head, initial encounter (principal); I10 Essential (primary) hypertension; S49.92XA Unspecified injury of left shoulder and upper arm, initial encounter; W01.198A Fall on same level from slipping, tripping and stumbling with subsequent striking against other object, initial encounter; M19.90 Unspecified osteoarthritis, unspecified site; L93.2 Other local lupus erythematosus; F17.210 Nicotine dependence, cigarettes, uncomplicated; R20.2 Paresthesia of skin; Z79.899 Other long term (current) drug therapy
CPT/HCPCS: 70450; 73030; 73060; 99284

== ENCOUNTER 2022-10-19 19:19 | Emergency (ER) | payer BC, MEDICAID, SELFPAY ==
[2022-10-19 19:20] VITALS: BP 160/83; PULSE 89; RESP 16; TEMP 36.6; O2SAT 99; BMI 33.4
--- NOTE | 2022-10-19 19:57 | EDS_ITS ---
HPI History of Present Illness Chief Complaint: Dental Informant: patient Onset/Context/Timing Onset: Weeks (1) Context: Gradual Onset Timing: Continuous Quality: Throbbing Location: Left upper molar and premolar area Worsened by: Chewing and air Associated Symptoms Assocated Symptom - Dental: jaw swelling, face swelling, cold sensitivity and hot sensitivity; Negative for fever Narrative Narrative: Patient presents with left upper dental pain that has been getting worse over the past week. Patient states she went to an urgent care and they prescribed her clindamycin. Patient states she has been taking 300 mg 3 times daily. Patient states the pain is getting worse. Patient states she has been taking ibuprofen with no improvement. Patient describes her pain as throbbing. Patient states the pain is over the left upper molar area. Patient admits to some swelling of her jaw and face. Patient also admits to hot and cold sensitivity. [facility] Medical History Anal fissure Anxiety and depression Arthritis Cervical radiculopathy Contact dermatitis Depression Fatty liver Fibromyalgia Gastric reflux GI problem Headache, migraine 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 High cholesterol History of pneumonia History of stress test Hyperlipidemia Hypertension Injury of back Left shoulder pain Left shoulder tendinitis Liver disease Lupus Menopausal hot flushes POWELL (nonalcoholic steatohepatitis) Oral thrush Rectal prolapse Restless legs Smoker Vaginal kushal Home Medications omeprazole 40 mg capsule,delayed release 40 mg PO BID #90 caps 12/19/20 [Rx Last Taken Unknown] Vitamin C 500 mg PO DAILY 06/29/21 [History Last Taken Unknown] atorvastatin 20 mg tablet 20 mg PO QHS #90 tabs 06/28/22 [Rx Last Taken Unknown] epinephrine 0.3 mg/0.3 mL injection, auto-injector (EpiPen 2-Tahir) 0.3 mg (0.3 mL) IM Q4H PRN anaphylaxis #2 ea 07/28/22 [Rx Last Taken Unknown] amlodipine 5 mg tablet 5 mg PO DAILY #30 tabs 09/14/22 [Rx Last Taken Unknown] buspirone 10 mg tablet 10 mg PO BID #60 tabs 09/14/22 [Rx Last Taken Unknown] hydroxyzine HCl 25 mg tablet 25 mg PO QHS Anxiety #5 tabs 09/14/22 [Rx Last Taken Unknown] multivitamin 1 tab PO DAILY 09/14/22 [History Last Taken Unknown] paroxetine HCl 40 mg tablet 40 mg PO DAILY #60 tabs 09/14/22 [Rx Last Taken Unknown] ibuprofen 600 mg tablet 600 mg PO Q8H PRN PRN pain #16 TABLETS 09/26/22 [Rx Last Taken Unknown] doxycycline monohydrate 100 mg capsule 100 mg PO BID #20 CAPSULES 10/19/22 [Rx Last Taken Unknown] hydrocodone-acetaminophen 5-325mg 5mg-325mg 1 tab PO Q6H PRN PRN Pain 3 days #10 TABLETS 10/19/22 [Rx Last Taken Unknown] Allergy/AdvReac Type Severity Reaction Status Date / Time amoxicillin trihydrate Allergy Hives Verified 10/19/22 19:23 [From Augmentin] Iodinated Contrast Media Allergy Swelling Verified 10/19/22 19:23 [DYEE] nitrofurantoin Allergy Hives Verified 10/19/22 19:23 macrocrystalline [From Macrodantin] phenazopyridine Allergy Hives Verified 10/19/22 19:23 [From Pyridium] potassium clavulanate Allergy Hives Verified 10/19/22 19:23 [From Augmentin] sulfamethoxazole Allergy Hives Verified 10/19/22 19:23 [From Bactrim] tree nut Allergy Hives Verified 10/19/22 19:23 trimethoprim [From Bactrim] Allergy Hives Verified 10/19/22 19:23 gabapentin Allergy Intermediate Pain in Uncoded 10/19/22 19:23 joints STERI-STRIPS Allergy Other Uncoded 10/19/22 19:23 Family History Father Alcoholism CVA (cerebral vascular accident) Mother Cancer Melanoma Grandfather Cancer Grandmother Cancer Other Arthritis Autoimmune disorder Breast cancer Colon cancer Depression Heart disease Hypertension Liver disease Myocardial infarction Ovarian cancer Psychiatric care Thyroid disorder Uterine cancer ulcer disease Surgical History History of appendectomy History of exploratory laparotomy History of oophorectomy History of tonsillectomy Hx of section Hx of hernia repair Hx of hysterectomy Social History household members: none Smoking Status: Current every day smoker tobacco type: cigarettes alcohol intake: never substance use type: marijuana ROS ROS ED Constitutional Constitutional ED: Denies chills or fever(s) Eyes Eyes: Denies blurry vision or change in vision ENT ENT ED: Reports rhinorrhea; Denies sore throat Cardiovascular Cardiovascular: Denies chest pain or palpitations Respiratory/Chest Respiratory/Chest: Denies cough or dyspnea Gastrointestinal Gastrointestinal: Denies nausea or vomiting Genitourinary Genitourinary ED: Denies dysuria or hematuria Musculoskeletal Musculoskeletal: Reports neck pain; Denies back pain Integumentary Denies abscess or rash Neurologic Neurologic: Denies headache(s) or weakness Allergic/Immunologic Allergic/Immunologic ED: Denies mouth swelling or urticaria EXAM Physical Exam Const Vital Signs: 10/19/22 19:20 Temperature 97.9 F Temperature Source Temporal Pulse Rate 89 Respiratory Rate 16 Blood Pressure 160/83 H Blood Pressure Mean 108 Pulse Ox 99 Oxygen Delivery Method Room Air Positive well nourished, well developed and obese General Appearance ED: well developed and NAD Nutritional Appearance: obese HEENT Mouth ED: Yes lips normal and Yes tongue normal Mouth: lips normal and tongue normal Teeth and Gingiva: caries and gingiva abnormal Positive for gingival edema; Negative for purulent d/c from gingiva Throat: posterior oropharynx normal Neck supple and no JVD General: Negative for anterior neck swelling or submandibular swelling Neuro oriented x3, CN's II-XII intact bilaterally, moves all extremities, no focal motor deficits and no sensory deficits noted Sensorium / Orientation: alert Motor Exam: strength 5/5 throughout Psych mental status grossly normal MDM MDM MDM Narrative Medical decision making narrative: Patient will be given a dose of Arverne and doxycycline here. Patient will be instructed to stop taking her clindamycin. Patient was given a prescription for doxycycline. Patient was given a dental referral list. Patient states she has called multiple dentists in the area and has not been able to get into see 1. Patient states she was able to find a dentist that takes her insurance but they are booking into December. Patient was instructed to continue Tylenol and ibuprofen as needed for pain. Patient was given a prescription for a short course of Arverne. Patient was instructed return if worse in any way. Patient understood and was agreeable with the plan. All questions were answered. Discharge Plan Triage Chief Complaint: Dental ED Provider: Dwain Bazzi Dx/Rx/DC Orders Clinical Impression: Infected dental caries, Obesity (BMI 30.0-34.9) Prescriptions: New hydrocodone-acetaminophen [hydrocodone-acetaminophen] 5-325 mg tablet 1 tab PO Q6H PRN PRN (Reason: Pain) 3 Days Qty: 10 0RF doxycycline monohydrate 100 mg capsule 100 mg PO BID Qty: 20 0RF No Action omeprazole 40 mg capsule,delayed release(DR/EC) 40 mg PO BID Qty: 90 1RF Vitamin C 500 mg PO DAILY atorvastatin 20 mg tablet 20 mg PO QHS Qty: 90 1RF multivitamin Tablet 1 tab PO DAILY paroxetine HCl 40 mg tablet 40 mg PO DAILY Qty: 60 1RF buspirone 10 mg tablet 10 mg PO BID Qty: 60 1RF amlodipine 5 mg tablet 5 mg PO DAILY Qty: 30 1RF hydroxyzine HCl 25 mg tablet 25 mg PO QHS Qty: 5 0RF epinephrine [EpiPen 2-Tahir] 0.3 mg/0.3 mL auto-injector 0.3 mg IM Q4H PRN (Reason: anaphylaxis) Qty: 2 0RF ibuprofen 600 mg tablet 600 mg PO Q8H PRN PRN (Reason: pain) Qty: 16 0RF Primary Care Provider: Neymar Mayo Referrals: Neymar Mayo MD [Primary Care Provider] - 3-5 Days Disposition Disposition: Home, Self Care
[2022-10-19] MEDS: Doxycycline 100 MG CAPSULE PO (20:16)
[2022-10-19] MEDS: HYDROcodone Bitartrate/Apap 5/325 Tablet PO (20:16)
== END 2022-10-19 20:57 | disposition home or self-care (01) ==
LOC: ED 20:12
PROVIDERS: Emergency Provider Emergency Medicine; PCP Internal Medicine; Visit Provider Emergency Medicine
DX: K02.9 Dental caries, unspecified (principal); E78.00 Pure hypercholesterolemia, unspecified; I10 Essential (primary) hypertension; E66.9 Obesity, unspecified; Z79.899 Other long term (current) drug therapy
CPT/HCPCS: 99283

== ENCOUNTER 2022-11-11 11:39 | Emergency (ER) | payer BC, MEDICAID, SELFPAY ==
[2022-11-11 11:40] VITALS: BP 159/97; PULSE 95; RESP 18; TEMP 35.8; O2SAT 100
[2022-11-11 12:22] VITALS: BMI 33.7
--- NOTE | 2022-11-11 12:35 | EDS_ITS ---
HPI <GONZALO Mei - Last Filed: 11/11/22 15:19> History of Present Illness Chief Complaint: Upper Extremity Injury Narrative Narrative: Patient presenting today with pain in her left elbow that she has had for the past 3 weeks. She states that the pain is worsening and as of 2 days ago it began radiating pain, numbness, tingling, and a burning sensation into her L 1-4 fingers. Patient states that she does a lot of repetitive hand and arm movement s at work. 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 She has been taking ibuprofen and applying arthritis creams with no relief. She has noticed that her right elbow has also been slightly painful, but she does not have any of the radiating symptoms. PFS <GONZALO Mei - Last Filed: 11/11/22 15:19> [facility] Medical History Anal fissure Anxiety and depression Arthritis Cervical radiculopathy Contact dermatitis Depression Fatty liver Fibromyalgia Gastric reflux GI problem Headache, migraine 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 High cholesterol History of pneumonia History of stress test Hyperlipidemia Hypertension Injury of back Left shoulder pain Left shoulder tendinitis Liver disease Lupus Menopausal hot flushes POWELL (nonalcoholic steatohepatitis) Oral thrush Physical exam, pre-employment Rectal prolapse Restless legs Smoker Vaginal kushal Home Medications omeprazole 40 mg capsule,delayed release 40 mg PO BID #90 caps 12/19/20 [Rx Last Taken Unknown] Vitamin C 500 mg PO DAILY 06/29/21 [History Last Taken Unknown] atorvastatin 20 mg tablet 20 mg PO QHS #90 tabs 06/28/22 [Rx Last Taken Unknown] epinephrine 0.3 mg/0.3 mL injection, auto-injector (EpiPen 2-Tahir) 0.3 mg (0.3 mL) IM Q4H PRN anaphylaxis #2 ea 07/28/22 [Rx Last Taken Unknown] amlodipine 5 mg tablet 5 mg PO DAILY #30 tabs 09/14/22 [Rx Last Taken Unknown] buspirone 10 mg tablet 10 mg PO BID #60 tabs 09/14/22 [Rx Last Taken Unknown] hydroxyzine HCl 25 mg tablet 25 mg PO QHS Anxiety #5 tabs 09/14/22 [Rx Last Taken Unknown] multivitamin 1 tab PO DAILY 09/14/22 [History Last Taken Unknown] paroxetine HCl 40 mg tablet 40 mg PO DAILY #60 tabs 09/14/22 [Rx Last Taken Unknown] ibuprofen 600 mg tablet 600 mg PO Q8H PRN PRN pain #16 TABLETS 09/26/22 [Rx Last Taken Unknown] doxycycline monohydrate 100 mg capsule 100 mg PO BID #20 CAPSULES 10/19/22 [Rx Last Taken Unknown] hydrocodone-acetaminophen 5-325mg 5mg-325mg 1 tab PO Q6H PRN PRN Pain 3 days #10 TABLETS 10/19/22 [Rx Last Taken Unknown] oxycodone-acetaminophen 5 mg-325 mg tablet (Percocet) 1 tab PO Q8H PRN pain 3 days #7 tabs 11/11/22 [Rx Last Taken Unknown] prednisone 20 mg tablet 40 mg PO DAILY 5 days #10 tabs 11/11/22 [Rx Last Taken Unknown] Allergy/AdvReac Type Severity Reaction Status Date / Time amoxicillin trihydrate Allergy Hives Verified 11/11/22 11:43 [From Augmentin] Iodinated Contrast Media Allergy Swelling Verified 11/11/22 11:43 [DYEE] nitrofurantoin Allergy Hives Verified 11/11/22 11:43 macrocrystalline [From Macrodantin] phenazopyridine Allergy Hives Verified 11/11/22 11:43 [From Pyridium] potassium clavulanate Allergy Hives Verified 11/11/22 11:43 [From Augmentin] sulfamethoxazole Allergy Hives Verified 11/11/22 11:43 [From Bactrim] tree nut Allergy Hives Verified 11/11/22 11:43 trimethoprim [From Bactrim] Allergy Hives Verified 11/11/22 11:43 gabapentin Allergy Intermediate Pain in Uncoded 11/11/22 11:43 joints STERI-STRIPS Allergy Other Uncoded 11/11/22 11:43 Family History Father Alcoholism CVA (cerebral vascular accident) Mother Cancer Melanoma Grandfather Cancer Grandmother Cancer Other Arthritis Autoimmune disorder Breast cancer Colon cancer Depression Heart disease Hypertension Liver disease Myocardial infarction Ovarian cancer Psychiatric care Thyroid disorder Uterine cancer ulcer disease Family History no significant family his Surgical History History of appendectomy History of exploratory laparotomy History of oophorectomy History of tonsillectomy Hx of section Hx of hernia repair Hx of hysterectomy Social History household members: none Smoking Status: Current every day smoker tobacco type: cigarettes alcohol intake: never substance use type: marijuana ROS <GONZALO Mei - Last Filed: 11/11/22 15:19> ROS ED Constitutional Constitutional ED: Denies chills, fever(s) or sweats Eyes Eyes: Denies blurry vision or diplopia Cardiovascular Cardiovascular: Denies chest pain or palpitations Respiratory/Chest Respiratory/Chest: Denies cough, dyspnea, tachypnea or wheezing Gastrointestinal Gastrointestinal: Denies abdominal pain, nausea or vomiting Musculoskeletal Musculoskeletal: Reports arthralgias and myalgias; Denies back pain or neck pain Integumentary Denies abscess, Abrasions or rash Neurologic Neurologic: Reports paresthesias; Denies confusion or dizziness EXAM <GONZALO Mei - Last Filed: 11/11/22 15:19> Physical Exam Const Vital Signs: 11/11/22 11:40 11/11/22 12:22 Temperature 96.5 F L Temperature Source Temporal Pulse Rate 95 Respiratory Rate 18 Blood Pressure 159/97 H Blood Pressure Mean 117 Pulse Ox 100 Oxygen Delivery Method Room Air Room Air Positive well nourished, well developed and no apparent distress General Appearance ED: well developed HEENT Reports normocephalic and head/scalp atraumatic Mouth ED: Yes moist mucous membranes normal Eyes PERRL and EOMs intact bilaterally Neck full ROM and supple Chest Wall inspection of chest normal Resp normal respiratory effort and clear to auscultation bilaterally Cardio regular rate and regular rhythm GI soft to palpation, non-tender, non-distended and no masses Back/Spine normal ROM and normal to inspection Extremity normal to inspection Extremity Narrative: Radial pulses 2+ and equal bilaterally, neurovascularly intact in the extremities, good capillary refill, tenderness to palpation to the left elbow. Full range of motion in the left elbow. Neuro oriented x3, CN's II-XII intact bilaterally, moves all extremities, no focal motor deficits and no sensory deficits noted Sensorium / Orientation: awake and alert Psych mental status grossly normal and thought process normal Skin no rashes or lesions noted and no wounds MDM <GONZALO Mei - Last Filed: 11/11/22 15:19> [facility] Narrative Medical decision making narrative: Patient presenting today with pain in her elbow that she has had for the past few weeks but has acutely worsened over the past 2 days. She does have radiation of tingling, burning, numbness into her 1-4 fingers. I have considered cubital tunnel syndrome, tennis elbow, golfer's elbow, elbow fracture/location. she does have tenderness to palpation along the lateral epicondyle, making tennis elbow most likely. X-ray obtained to rule out fracture or dislocation and is negative for any abnormality. She has been given pain control here and has been given a short dose of steroids for home. She has been told to take anti-inflammatories and follow-up with her PCP. She will be discharged home in stable condition and is comfortable with plan. Radiography Chest X-Ray - ED: Read by ED Physician and Read by Radiologist <Dr. Aquilino Ruiz MD - Last Filed: 11/11/22 15:26> [facility] Treatment and Re-Evaluation Narrative: I have personally performed a face to face assessment of the patient and have reviewed the ZANDER Note. I performed a substantive portion of the visit including all aspects of the following. My aguilar findings include: History: Patient is having some pain at the left elbow off-and-on for 3 weeks but is now gotten constant. She has tried pery-dms-kbsialr meds but just not helping. She is also getting some tingling in her hand but mostly the back of her hand and mostly overlying the thumb index and middle finger. She denies any trauma or fall. She is right-hand dominant. Exam: Patient has tenderness over the extensor muscle group in the lateral epicondylar area consistent with a tennis elbow. 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 When I tap on the medial aspect over the ulnar nerve, she has some pain but it really does not cause radicular symptoms. When she describes where she gets tingling it seems more in a radial distribution. There is no erythema or warmth. No sign of infection at all. Medical Decision Making: We will do an x-ray of this area. This is looking for any markedly abnormal bony growth or other acute finding. There is no sign of DVT or vascular insufficiency. She has excellent pulses, capillary refill and Yogi's test. Her sensation is intact but she describes some paresthesias in the radial nerve distribution. I think she will benefit from steroids and a few pills of something for pain. We discussed just resting her arm such as in a sling but only for a few minutes off and on. I think if she puts her hand in a sling all the time it will actually worsen this. She cannot tolerate a compressive band for lateral epicondylitis. Discharge Plan Triage Chief Complaint: Upper Extremity Injury ED Midlevel Provider: Edle Upton ED Provider: Aquilino Ruiz Dx/Rx/DC Orders Clinical Impression: Left tennis elbow Instructions: ED Tennis Elbow Prescriptions: New prednisone 20 mg tablet 40 mg PO DAILY 5 Days Qty: 10 0RF oxycodone-acetaminophen [Percocet] 5-325 mg tablet 1 tab PO Q8H PRN (Reason: pain) 3 Days Qty: 7 0RF No Action omeprazole 40 mg capsule,delayed release(DR/EC) 40 mg PO BID Qty: 90 1RF Vitamin C 500 mg PO DAILY atorvastatin 20 mg tablet 20 mg PO QHS Qty: 90 1RF multivitamin Tablet 1 tab PO DAILY paroxetine HCl 40 mg tablet 40 mg PO DAILY Qty: 60 1RF buspirone 10 mg tablet 10 mg PO BID Qty: 60 1RF amlodipine 5 mg tablet 5 mg PO DAILY Qty: 30 1RF hydroxyzine HCl 25 mg tablet 25 mg PO QHS Qty: 5 0RF epinephrine [EpiPen 2-Tahir] 0.3 mg/0.3 mL auto-injector 0.3 mg IM Q4H PRN (Reason: anaphylaxis) Qty: 2 0RF ibuprofen 600 mg tablet 600 mg PO Q8H PRN PRN (Reason: pain) Qty: 16 0RF hydrocodone-acetaminophen [hydrocodone-acetaminophen] 5-325 mg tablet 1 tab PO Q6H PRN PRN (Reason: Pain) 3 Days Qty: 10 0RF doxycycline monohydrate 100 mg capsule 100 mg PO BID Qty: 20 0RF Stand Alone Forms: ED Work / School Excuse Primary Care Provider: Neymar Mayo Referrals: Oleghe,Efewongbe, MD [Primary Care Provider] - 5-7 Days Activity Restrictions/Additional Instructions: Rest the elbow, apply ice several times a day for the next few days. You can take naproxen or ibuprofen to help with the inflammation. Disposition Disposition: Home, Self Care Discharge Date/Time: 11/11/22 14:17
--- NOTE | 2022-11-11 13:27 | RAD_ITS ---
STUDY: X-RAY - LEFT ELBOW REASON FOR EXAM: Female, 47 years old. Pain TECHNIQUE: 3 view(s) of the elbow. COMPARISON: None. FINDINGS: Normal visualized humerus, radius and ulna. Normal radiocapitellar and ulnotrochlear articulations. The soft tissue structures are unremarkable. RAD/Elbow min 3 Views IMPRESSION: Normal x-ray examination of the elbow. Electronically Signed: Boyd Dave MD at 13:38 EDT ,
[2022-11-11] MEDS: HYDROcodone Bitartrate/Apap 5/325 Tablet PO (13:37)
== END 2022-11-11 14:17 | disposition home or self-care (01) ==
PROVIDERS: Emergency Provider Emergency Medicine; PCP Internal Medicine; Visit Provider Emergency Medicine
DX: M77.12 Lateral epicondylitis, left elbow (principal); E78.00 Pure hypercholesterolemia, unspecified; I10 Essential (primary) hypertension; Z79.899 Other long term (current) drug therapy; F41.8 Other specified anxiety disorders; Z79.1 Long term (current) use of non-steroidal anti-inflammatories (NSAID); F17.210 Nicotine dependence, cigarettes, uncomplicated; X58.XXXA Exposure to other specified factors, initial encounter
CPT/HCPCS: 73080; 99283

== ENCOUNTER 2023-01-29 12:11 | Emergency (ER) | payer BC, MEDICAID, SELFPAY ==
[2023-01-29 12:12] VITALS: BP 186/100; PULSE 98; RESP 14; TEMP 36.7; O2SAT 99; BMI 33.5
--- NOTE | 2023-01-29 12:19 | RAD_ITS ---
INDICATION: chest tightness EXAMINATION/TECHNIQUE: X-RAY - XR Chest 2 Views COMPARISON: July 28, 2022 FINDINGS: LINES/DEVICES: None. LUNGS: No consolidation, edema or effusion. No pneumothorax. MEDIASTINUM AND CARDIOVASCULAR STRUCTURES: Cardiac silhouette not enlarged. Central airways and mediastinal contour are unremarkable. BONES AND SOFT TISSUES: Unremarkable. RAD/Chest PA and Lateral IMPRESSION: No radiographic evidence of acute cardiopulmonary disease. Electronically Signed: Chantell Hardy MD at 12:50 EDT ,
[2023-01-29 12:21] VITALS: BP 120/71; PULSE 87; RESP 17; O2SAT 99
--- NOTE | 2023-01-29 12:21 | ED.VIS.CHEST ---
HPI History of Present Illness Chief Complaint: Chest Pain Detail of Chief Complaint: Chest tightness radiating to back Informant: patient Onset/Context/Timing Onset: Hours (1/2-hour prior to presentation while driving car) Activity at onset: sudden Timing: Continuous Quality: Positive for Pressure Location: Substernal Current Severity: Mild Maximum Severity: Moderate Worsened By: Nothing Relieved By: Nothing Associated Symptoms: Positive for Diaphoresis and Dyspnea; Negative for Nausea, Vomiting, Cough, Fever, Lightheadedness, Acid Reflux or Palpitations Narrative Narrative: Patient is a 47-year-old woman with history of hyperlipidemia, depression, nonalcoholic Stata hepatitis, fibromyalgia and hypertension who presents because of midsternal chest pressure radiating through to her back. She reported shortness of breath walking up the incline to come to the emergency department. She has similar episode recently and attributed to anxiety since her son was recently killed in a motorcycle accident. She denies history of PE nor does she have any risk factors. She is not on hormonal therapy. Recently she has reported intolerance to greasy and fried foods. There is family history cholelithiasis. She does have history of reflux/hiatal hernia. Denies black or maroon-colored stool She denies leg pain, swelling discoloration. She denies recent respiratory infection. Prior Similar Symptoms: No Recent Illness/Hospitalization: No CVD Risk Factors: Positive for Hypertension, Hypercholesterolemia and Family History 1' </=55 (Mother had triple bypass surgery at the age of 44. Father of a stroke age 54.); Negative for Diabetes PE Risk Factors: Negative for Recent Travel/Surgery, Recent Immobilization, Prior DVT or PE, Cancer or OCP + Smoking + >/=35 TAD Risk Factors: Positive for Hypertension; Negative for Marfan's Syndrome or Family History [facility] Medical History Anal fissure Anxiety and depression Arthritis Cervical radiculopathy Contact dermatitis Depression Fatty liver Fibromyalgia Gastric reflux GI problem Headache, migraine 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 High cholesterol History of pneumonia History of stress test Hyperlipidemia Hypertension Injury of back Left carpal tunnel syndrome Left shoulder pain Left shoulder tendinitis Liver disease Lupus MDD (major depressive disorder) Menopausal hot flushes POWELL (nonalcoholic steatohepatitis) Oral thrush Panic disorder Physical exam, pre-employment Rectal prolapse Restless legs Smoker Vaginal kushal Home Medications omeprazole 40 mg capsule,delayed release 40 mg PO BID #90 caps 12/19/20 [Rx Last Taken Unknown] Vitamin C 500 mg PO DAILY 06/29/21 [History Last Taken Unknown] epinephrine 0.3 mg/0.3 mL injection, auto-injector (EpiPen 2-Tahir) 0.3 mg (0.3 mL) IM Q4H PRN anaphylaxis #2 ea 07/28/22 [Rx Last Taken Unknown] multivitamin 1 tab PO DAILY 09/14/22 [History Last Taken Unknown] paroxetine HCl 40 mg tablet 40 mg PO DAILY #60 tabs 09/14/22 [Rx Last Taken Unknown] ibuprofen 600 mg tablet 600 mg PO Q8H PRN PRN pain #16 TABLETS 09/26/22 [Rx Last Taken Unknown] buspirone 15 mg tablet 15 mg PO BID #60 tabs 12/02/22 [Rx Last Taken Unknown] lorazepam 0.5 mg tablet 0.5 mg PO BID PRN anxiety #60 tabs 12/02/22 [Rx Last Taken Unknown] Allergy/AdvReac Type Severity Reaction Status Date / Time shellfish derived Allergy Severe Anaphylaxis Verified 01/13/23 10:24 tree nut Allergy Severe Anaphylaxis Verified 01/13/23 10:24 adhesive Allergy NEEDS Verified 12/14/22 14:16 FOLLOW-UP amoxicillin trihydrate Allergy Hives Verified 12/02/22 09:59 [From Augmentin] Iodinated Contrast Media Allergy Swelling Verified 12/02/22 09:59 [DYEE] nitrofurantoin Allergy Hives Verified 12/02/22 09:59 macrocrystalline [From Macrodantin] phenazopyridine Allergy Hives Verified 12/02/22 09:59 [From Pyridium] potassium clavulanate Allergy Hives Verified 12/02/22 09:59 [From Augmentin] sulfamethoxazole Allergy Hives Verified 12/02/22 09:59 [From Bactrim] trimethoprim [From Bactrim] Allergy Hives Verified 12/02/22 09:59 Family History Father Alcoholism CVA (cerebral vascular accident) Mother Cancer Melanoma Grandfather Cancer Grandmother Cancer Other Arthritis Autoimmune disorder Breast cancer Colon cancer Depression Heart disease Hypertension Liver disease Myocardial infarction Ovarian cancer Psychiatric care Thyroid disorder Uterine cancer ulcer disease Surgical History History of appendectomy History of exploratory laparotomy History of oophorectomy History of tonsillectomy Hx of section Hx of hernia repair Hx of hysterectomy Social History household members: none Smoking Status: Current every day smoker tobacco type: cigarettes alcohol intake: never substance use type: does not use ROS ROS ED Constitutional Constitutional ED: Denies chills, fever(s), subjective, sweats or weight loss Eyes Eyes: Reports none; Denies blurry vision or change in vision ENT ENT ED: Denies ear pain, rhinorrhea or sore throat Cardiovascular Cardiovascular: Reports as per HPI; Denies orthopnea or paroxysmal nocturnal dyspnea Respiratory/Chest Respiratory/Chest: Reports dyspnea on exertion; Denies cough, dyspnea, orthopnea or paroxysmal nocturnal dyspnea Gastrointestinal Gastrointestinal: Denies abdominal pain, constipation, diarrhea, melena, nausea or vomiting Genitourinary Genitourinary ED: Denies dysuria, hematuria or urinary frequency Musculoskeletal Musculoskeletal: Reports back pain; Denies arthralgias, myalgias or neck pain Integumentary Denies rash Neurologic Neurologic: Denies headache(s) or paresthesias Psychiatric Psychiatric: Denies anxiety or depression Endocrine Endocrinology: Denies cold intolerance or heat intolerance Hematologic/Lymphatic Hematologic/Lymphatic: Denies easy bleeding or easy bruising EXAM Physical Exam Const Vital Signs: 01/29/23 12:12 01/29/23 12:16 01/29/23 12:21 Temperature 98.0 F Temperature Source Temporal Pulse Rate 98 87 Respiratory Rate 14 17 Respiratory Effort Normal Blood Pressure 186/100 H 120/71 Blood Pressure Mean 128 87 Pulse Ox 99 99 Oxygen Delivery Method Room Air Room Air 01/29/23 12:44 01/29/23 13:28 Temperature Temperature Source Pulse Rate 101 H 92 Respiratory Rate 12 23 H Respiratory Effort Blood Pressure 153/103 H 148/88 H Blood Pressure Mean 119 108 Pulse Ox 99 Oxygen Delivery Method Room Air Positive well nourished, well developed and obese Constitutional Narrative: Patient appears anxious and is tearful. General Appearance ED: well developed; Negative for pallor Nutritional Appearance: obese HEENT Reports moist mucous membranes HEENT Narrative: Conjunctive is pink. Ears are normal. normocephalic and atraumatic Eyes PERRL and EOMs intact bilaterally General Eye ED: Negative for pale conjunctiva or scleral icterus Neck no lymphadenopathy, supple and no JVD Chest Wall inspection of chest normal and palpation of chest normal Resp normal respiratory effort and clear to auscultation bilaterally Cardio regular rate, S1 normal heart sound, S2 normal heart sound and no murmurs GI soft to palpation, non-distended and no masses; Negative for non-tender or hepatosplenomegaly GI Narrative: Bowel sounds are diminished. There is tenderness in the right upper quadrant epigastric area. Back/Spine no CVA tenderness Extremity normal to inspection Extremity Narrative: There is no asymmetry, swelling, discoloration, leg vein distention, palpable cords or tenderness along the distribution of the deep venous system. General Extremety ED: Negative for edema or pulses abnormal General Extremity: Negative for edema or pulses abnormal Neuro oriented x3, CN's II-XII intact bilaterally and no sensory deficits noted Sensorium / Orientation: awake and alert Psych Mood & Affect: depressed and tearful Skin no rashes or lesions noted and no wounds General Skin Exam: Negative for jaundice or pallor Heart Score History: Slightly/Non-Suspicious ECG: Normal Age: </= 45 years Risk Factors: >/= 3 Risk Factors or History of CAD Troponin: </= Normal Limit Score: 2 MDM MDM MDM Narrative Medical decision making narrative: D-dimer was not obtained since she is PERC negative. Need to evaluate for cardiac versus noncardiac etiology. EKG, chest x-ray for blood work was obtained including troponin and 2-hour delta troponin. Chest x-ray was obtained to evaluate for pneumothorax, hemothorax, CHF, widened mediastinum etc. EKG to evaluate for acute ischemic changes. Lab Data Attestation: I reviewed the patient's lab results. Lab results narrative: CBC is unremarkable. Basic Arina panel reveals a creatinine of 1.07 with a GFR of 59. First troponin is 4. Second opponent is 3. Delta is -1. With second troponin less than 4 based on algorithm for high-sensitivity troponin there is no concern for cardiac etiology. Suspect this is due to anxiety. Labs: Laboratory Results - last 24 hr 01/29/23 01/29/23 01/29/23 12:20 12:20 14:37 WBC 10.4 RBC 4.63 Hgb 14.5 Hct 44.9 MCV 97.0 MCH 31.3 MCHC 32.3 RDW Std Deviation 49.1 H RDW Coeff of Sakina 13.6 Plt Count 271 MPV 11.4 Immature Gran % (Auto) 0.400 Neut % (Auto) 54.3 Lymph % (Auto) 38.0 Carter % (Auto) 5.5 Eos % (Auto) 1.0 Baso % (Auto) 0.8 Absolute Neuts (auto) 5.6 Absolute Lymphs (auto) 3.94 Nucleated RBC % 0 Sodium 141 Potassium 4.0 Chloride 108 H Carbon Dioxide 23.0 Anion Gap 10 BUN 13 Creatinine 1.07 H Estim Creat Clear Calc 54.92 Est GFR (MDRD) Af Amer 71 Est GFR (MDRD) Non-Af 59 L BUN/Creatinine Ratio 12.1 Glucose 139 H Calcium 9.2 Total Bilirubin 0.50 AST 26 ALT 57 H Alkaline Phosphatase 90 Troponin I High Sens 4 3 Total Protein 7.4 Albumin 4.0 Globulin 3.4 Albumin/Globulin Ratio 1.2 Lipase 47 Radiography Diagnostic Testing: Clinical Impression(s) from Imaging Studies Chest X-Ray 01/29/23 12:19 IMPRESSION: No radiographic evidence of acute cardiopulmonary disease. Electronically Signed: Chantell Hardy MD at 12:50 EDT , Rhythm Strip Rhythm Strip: Sinus Rhythm Rate: 98 Ectopy: None EKG Initial EKG: Attestation: I personally reviewed and interpreted this EKG as follows: Interpretation: Sinus Rhythm (88 and is normal. GA interval is 158 ms. Cures duration 80 ms. QT duration 342 ms. [place] is normal.) Discharge Plan Triage Chief Complaint: Chest Pain Other Complaint: Shortness of Breath ED Provider: Cosmo Richards Dx/Rx/DC Orders Clinical Impression: Non-cardiac chest pain, Anxiety and depression, Dyspnea, History of hypertension, Hx of hypercholesterolemia Instructions: ED Chest Pain, Noncardiac Prescriptions: No Action omeprazole 40 mg capsule,delayed release(DR/EC) 40 mg PO BID Qty: 90 1RF Vitamin C 500 mg PO DAILY multivitamin Tablet 1 tab PO DAILY paroxetine HCl 40 mg tablet 40 mg PO DAILY Qty: 60 1RF lorazepam 0.5 mg tablet 0.5 mg PO BID PRN (Reason: anxiety) Qty: 60 2RF buspirone 15 mg tablet 15 mg PO BID Qty: 60 1RF epinephrine [EpiPen 2-Tahir] 0.3 mg/0.3 mL auto-injector 0.3 mg IM Q4H PRN (Reason: anaphylaxis) Qty: 2 0RF ibuprofen 600 mg tablet 600 mg PO Q8H PRN PRN (Reason: pain) Qty: 16 0RF Primary Care Provider: Neymar Mayo Referrals: Neymar Mayo MD [Primary Care Provider] - As Needed Disposition Disposition: Home, Self Care
[2023-01-29 12:35] LABS: Absolute Lymphocyte Count 3.94 X10^3/uL (0.83-4.51); Absolute Neutrophil Count 5.6 X10^3/uL (2.0-7.7); Basophil# 0.08 X10^3/uL; Basophil% 0.8 % (0-1); Hematocrit 44.9 % (37-47); Hemoglobin 14.5 g/dL (12.0-15.0); Lymphocyte # 3.94 X10^3/ul (0.83-4.51); Mean Corp Hgb Conc 32.3 g/dL (32-36); Mean Corpuscular Hgb 31.3 pg (27.0-32.0); Mean Platelet Vol. 11.4 fl (6.2-12.0); Monocyte# 0.57 X10^3/uL; Monocyte% 5.5 % (0-10); NRBC Flagged by Analyzer 0 % (0-5); Neutrophil # 5.63 X10^3/uL (2.7-7.7); Neutrophil % 54.3 % (47-70); Platelet Count 271 K/mm3 (150-450); RBC Distribution Width CV 13.6 % (11.6-14.6); RBC Distribution Width SD 49.1 fl (35.1-43.9); Red Blood Count 4.63 M/mm3 (4.2-5.4); White Blood Count 10.4 K/mm3 (4.4-11.0)
[2023-01-29 12:44] VITALS: BP 153/103; PULSE 101; RESP 12; O2SAT 99
[2023-01-29 12:45] LABS: ALB/GLOB Ratio 1.2 RATIO (0.9-2.4); AST(SGOT) 26 U/L (15-37); Alanine Aminotransfer ALT/SGPT 57 U/L (13-56); Alkaline Phosphatase 90 U/L (45-117); Anion Gap 10 (5-15); BUN 13 mg/dL (7-18); BUN/Creat Ratio 12.1 RATIO (10-20); Calcium,Total 9.2 mg/dL (8.5-10.1); Chloride 108 mmol/L (98-107); Creatinine, Serum 1.07 mg/dL (0.55-1.02); EST Glomerular Filtration Rate 59 mL/min (>60); Est Glom Filt Rate - Afr Amer 71 mL/min (>60); Estimated Creatinine Clearance 54.92 ml/min; Globulin 3.4 g/dL (2.2-4.2); Glucose 139 mg/dL (74-106); Lipase 47 U/L (13-75); Protein, Total 7.4 g/dL (6.4-8.2); Sodium Level 141 mmol/L (136-145); Troponin-I HS (w/2H Reflex) 4 pg/mL (3.0-54.0)
[2023-01-29] MEDS: LORazepam 2 MG/ML Syringe 0.5 MG IV (12:54)
[2023-01-29 13:28] VITALS: BP 148/88; PULSE 92; RESP 23
--- NOTE | 2023-01-29 13:34 | EKG12_ITS ---
Test Reason : CP Blood Pressure : / mmHG Vent. Rate : 088 BPM Atrial Rate : 088 BPM P-R Int : 158 ms QRS Dur : 080 ms QT Int : 342 ms P-R-T Axes : 055 049 027 degrees QTc Int : 413 ms Normal sinus rhythm Normal ECG Confirmed by KATHIA MELGAR, GASTON ([id number]), technical writer and editor DOUGLAS MCCRAY ([id number]) on 02/01/2023 8:36:50 AM Referred By: Confirmed By:GASTON BAE MD
[2023-01-29 14:25] LABS: Reflex Troponin-HS? (from REC) Y
[2023-01-29 15:47] LABS: Troponin-I HS 3 pg/mL (3.0-54.0)
[2023-01-29 16:09] VITALS: PULSE 86; RESP 16; O2SAT 100
[2023-01-29 16:10] VITALS: RESP 16
== END 2023-01-29 16:11 | disposition home or self-care (01) ==
PROVIDERS: Emergency Provider Emergency Medicine; PCP Internal Medicine; Visit Provider Emergency Medicine
DX: R07.89 Other chest pain (principal); I10 Essential (primary) hypertension; F32.A Depression, unspecified; E78.00 Pure hypercholesterolemia, unspecified; F41.9 Anxiety disorder, unspecified; R06.00 Dyspnea, unspecified; K21.9 Gastro-esophageal reflux disease without esophagitis; Z79.899 Other long term (current) drug therapy; Z79.1 Long term (current) use of non-steroidal anti-inflammatories (NSAID); Z90.49 Acquired absence of other specified parts of digestive tract; Z90.710 Acquired absence of both cervix and uterus; F17.210 Nicotine dependence, cigarettes, uncomplicated
CPT/HCPCS: 71046; 80053; 83690; 84484; 85025; 93005; 96374; 99283; A4216

== ENCOUNTER 2023-02-09 11:21 | Emergency (ER) | payer BC, MEDICAID, SELFPAY ==
[2023-02-09 11:22] VITALS: BP 150/99; PULSE 99; RESP 18; TEMP 35.9; O2SAT 100; BMI 32.1
[2023-02-09 11:47] LABS: Absolute Lymphocyte Count 3.11 X10^3/uL (0.83-4.51); Basophil# 0.06 X10^3/uL; Basophil% 0.8 % (0-1); Eosinophil# 0.14 X10^3/uL; Eosinophils% 1.8 % (0-5); Hemoglobin 15.1 g/dL (12.0-15.0); Lymphocyte # 3.11 X10^3/ul (0.83-4.51); Lymphocyte % 39.5 % (19-41); Mean Corp Hgb Conc 32.1 g/dL (32-36); Mean Corpuscular Hgb 31.7 pg (27.0-32.0); Mean Corpuscular Volume 98.5 fL (81-99); Monocyte# 0.58 X10^3/uL; Monocyte% 7.4 % (0-10); NRBC Flagged by Analyzer 0 % (0-5); Neutrophil # 3.97 X10^3/uL (2.7-7.7); Neutrophil % 50.2 % (47-70); Platelet Count 230 K/mm3 (150-450); RBC Distribution Width CV 13.2 % (11.6-14.6); RBC Distribution Width SD 48.6 fl (35.1-43.9); Red Blood Count 4.77 M/mm3 (4.2-5.4); White Blood Count 7.9 K/mm3 (4.4-11.0)
--- NOTE | 2023-02-09 12:01 | US_ITS ---
INDICATION: Right upper quadrant pain. EXAMINATION: Ultrasound US Abdomen Limited ) right upper quadrant) TECHNIQUE: Gomez scale and color doppler imaging was performed of the right upper quadrant. COMPARISON: CT of the abdomen and pelvis dated June 08, 2022 FINDINGS: LIVER: Liver is diffusely echogenic consistent with fatty infiltration. No focal hepatic lesion. There is no free fluid. GALLBLADDER AND BILIARY TREE: The gallbladder is within normal limits. There is no gallbladder wall thickening. No shadowing gallstone or pericholecystic fluid. The proximal common bile duct measures 3.8 mm, which is within normal limits for the patient''s age. Songraphic Cleveland''s sign: Negative. PANCREAS: No focal abnormality is demonstrated in the pancreas. No pancreatic ductal dilatation. RIGHT KIDNEY: The right kidney measures 10.6 cm in length and is within normal limits. US/Gallbladder IMPRESSION: Fatty infiltration of the liver. Electronically Signed: Chantell Hardy MD at 13:18 EDT ,
--- NOTE | 2023-02-09 12:02 | EDS_ITS ---
HPI HPI - GI History of Present Illness Chief Complaint: Abd Pain Narrative Narrative: 47-year-old female with right upper quadrant pain which started this morning. She states she has had abdominal surgeries including 2 C-sections, hernia repair, appendectomy, hysterectomy, exploratory laparotomy. Patient states she does have a gallbladder. She has not been able to eat or drink today because he is vomiting. She feels chills but is not feverish. No urinary or vaginal complaints. No constipation or diarrhea. PFSH PFSH Medical History Anal fissure Anxiety and depression Arthritis Cervical radiculopathy Contact dermatitis Depression Fatty liver Fibromyalgia Gastric reflux GI problem Headache, migraine 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 High cholesterol History of pneumonia History of stress test Hyperlipidemia Hypertension Injury of back Left carpal tunnel syndrome Left shoulder pain Left shoulder tendinitis Liver disease Lupus MDD (major depressive disorder) Menopausal hot flushes POWELL (nonalcoholic steatohepatitis) Oral thrush Panic disorder Physical exam, pre-employment Rectal prolapse Restless legs Smoker Vaginal kushal Home Medications omeprazole 40 mg capsule,delayed release 40 mg PO BID #90 caps 12/19/20 [Rx Last Taken Unknown] Vitamin C 500 mg PO DAILY 06/29/21 [History Last Taken Unknown] epinephrine 0.3 mg/0.3 mL injection, auto-injector (EpiPen 2-Tahir) 0.3 mg (0.3 mL) IM Q4H PRN anaphylaxis #2 ea 07/28/22 [Rx Last Taken Unknown] multivitamin 1 tab PO DAILY 09/14/22 [History Last Taken Unknown] paroxetine HCl 40 mg tablet 40 mg PO DAILY #60 tabs 09/14/22 [Rx Last Taken Unknown] ibuprofen 600 mg tablet 600 mg PO Q8H PRN PRN pain #16 TABLETS 09/26/22 [Rx Last Taken Unknown] buspirone 15 mg tablet 15 mg PO BID #60 tabs 12/02/22 [Rx Last Taken Unknown] lorazepam 1 mg tablet 1 mg PO TID PRN anxiety 30 days #90 tabs 01/31/23 [Rx Last Taken Unknown] Allergy/AdvReac Type Severity Reaction Status Date / Time shellfish derived Allergy Severe Anaphylaxis Verified 02/09/23 11:24 tree nut Allergy Severe Anaphylaxis Verified 02/09/23 11:24 adhesive Allergy NEEDS Verified 02/09/23 11:24 FOLLOW-UP amoxicillin trihydrate Allergy Hives Verified 02/09/23 11:24 [From Augmentin] Iodinated Contrast Media Allergy Swelling Verified 02/09/23 11:24 [DYEE] nitrofurantoin Allergy Hives Verified 02/09/23 11:24 macrocrystalline [From Macrodantin] phenazopyridine Allergy Hives Verified 02/09/23 11:24 [From Pyridium] potassium clavulanate Allergy Hives Verified 02/09/23 11:24 [From Augmentin] sulfamethoxazole Allergy Hives Verified 02/09/23 11:24 [From Bactrim] trimethoprim [From Bactrim] Allergy Hives Verified 02/09/23 11:24 Family History Father Alcoholism CVA (cerebral vascular accident) Mother Cancer Melanoma Grandfather Cancer Grandmother Cancer Other Arthritis Autoimmune disorder Breast cancer Colon cancer Depression Heart disease Hypertension Liver disease Myocardial infarction Ovarian cancer Psychiatric care Thyroid disorder Uterine cancer ulcer disease Surgical History History of appendectomy History of exploratory laparotomy History of oophorectomy History of tonsillectomy Hx of section Hx of hernia repair Hx of hysterectomy Social History household members: none Smoking Status: Current every day smoker tobacco type: cigarettes alcohol intake: never substance use type: does not use ROS ROS ED Constitutional Constitutional ED: Denies chills, fever(s) or sweats Eyes Eyes: Denies blurry vision or change in vision ENT ENT ED: Denies ear pain or sore throat Cardiovascular Cardiovascular: Denies chest pain, palpitations or racing heartbeat Respiratory/Chest Respiratory/Chest: Denies cough, dyspnea or sputum Gastrointestinal Gastrointestinal: Reports abdominal pain, nausea and vomiting; Denies constipation or diarrhea Genitourinary Genitourinary ED: Denies dysuria, hematuria or urinary frequency Musculoskeletal Musculoskeletal: Denies arthralgias, myalgias or neck pain Integumentary Denies abscess, Abrasions or rash Neurologic Neurologic: Denies headache(s), paresthesias or weakness Psychiatric Psychiatric: Denies anxiety, depression, suicidal ideation or suicidal thoughts Endocrine Endocrinology: Denies polydipsia or polyuria EXAM Physical Exam Const Vital Signs: 02/09/23 11:22 02/09/23 14:40 02/09/23 16:08 Temperature 96.7 F L Temperature Source Temporal Pulse Rate 99 68 Respiratory Rate 18 18 16 Blood Pressure 150/99 H 143/84 H Blood Pressure Mean 116 103 Pulse Ox 100 98 Oxygen Delivery Method Room Air Room Air Positive well nourished General Appearance ED: NAD; Negative for pallor HEENT normocephalic and atraumatic Eyes PERRL and EOMs intact bilaterally General Eye ED: Negative for scleral icterus Resp normal respiratory effort Auscultation: Negative for rales or rhonchi Cardio regular rate and regular rhythm GI Palpation: tender RUQ and Cleveland's sign Neuro CN's II-XII intact bilaterally and moves all extremities Sensorium / Orientation: alert Motor Exam: strength 5/5 throughout Psych mental status grossly normal and thought process normal Skin General Skin Exam: Negative for jaundice or pallor MDM MDM MDM Narrative Medical decision making narrative: Patient presenting with right upper quadrant pain. States started acutely this morning. She does have a Cleveland sign on examination. Otherwise her vital signs are stable she is afebrile. Differential at this point includes cholelithiasis, acute cholecystitis acute choledocholithiasis, gastritis, duodenal ulcer, peptic ulcer disease, small bowel obstruction, colitis, dehydration, electrolyte abnormality, anemia. CBC was obtained to assess white blood cell count, hemoglobin, platelets, differential. CMP for liver function, renal function, electrolytes. Lipase to assess for pancreatitis. Patient given morphine 4 mg IV as well as Zofran 4 mg. He was given a liter normal saline. Lab work ultimately is unremarkable and her CBC and CMP are normal. Lipase is negative. Right upper quadrant ultrasound was negative. Patient requested more pain medication was given a second dose of morphine. I obtained a CT of the abdomen pelvis with IV contrast although the patient had to be premedicated because she has an allergy to contrast dye which causes swelling. Patient tolerated this well. There was a delay in the CT read due to radiology. Patient requested more pain medication and she was given 0.5 mg of Dilaudid. Her pain is now very much improved. Her CT came back negative for acute findings. All of this was discussed with her and she feels comfortable at this point being discharged maria e e. I will have her follow-up with primary care provider and her previous surgeon. Impression: 1. abdominal pain Lab Data Labs: Laboratory Results - last 24 hr 02/09/23 02/09/23 11:37 11:37 WBC 7.9 RBC 4.77 Hgb 15.1 H Hct 47.0 MCV 98.5 MCH 31.7 MCHC 32.1 RDW Std Deviation 48.6 H RDW Coeff of Sakina 13.2 Plt Count 230 MPV 11.0 Immature Gran % (Auto) 0.300 Neut % (Auto) 50.2 Lymph % (Auto) 39.5 [place] % (Auto) 7.4 Eos % (Auto) 1.8 Baso % (Auto) 0.8 Absolute Neuts (auto) 4.0 Absolute Lymphs (auto) 3.11 Nucleated RBC % 0 Sodium 140 Potassium 4.0 Chloride 110 H Carbon Dioxide 24.0 Anion Gap 6 BUN 10 Creatinine 0.89 Estim Creat Clear Calc 66.03 Est GFR (MDRD) Af Amer 88 Est GFR (MDRD) Non-Af 73 BUN/Creatinine Ratio 11.3 Glucose 98 Calcium 9.1 Total Bilirubin 0.50 Direct Bilirubin 0.17 AST 21 ALT 50 Alkaline Phosphatase 79 Total Protein 7.2 Albumin 3.9 Globulin 3.3 Lipase 28 Radiography Diagnostic Testing: Clinical Impression(s) from Imaging Studies Gallbladder Ultrasound 02/09/23 12:01 IMPRESSION: Fatty infiltration of the liver. Electronically Signed: Chantell Hardy MD at 13:18 EDT , Abdomen/Pelvis CT 02/09/23 14:25 IMPRESSION: No definite acute or significant abnormality seen. Electronically Signed: Garfield Christine MD at 17:16 EDT , Discharge Plan Triage Chief Complaint: Abd Pain ED Provider: Emerson Haney Dx/Rx/DC Orders Instructions: ED Abdominal Pain Unkn Cause Fem Prescriptions: No Action omeprazole 40 mg capsule,delayed release(DR/EC) 40 mg PO BID Qty: 90 1RF Vitamin C 500 mg PO DAILY multivitamin Tablet 1 tab PO DAILY paroxetine HCl 40 mg tablet 40 mg PO DAILY Qty: 60 1RF buspirone 15 mg tablet 15 mg PO BID Qty: 60 1RF lorazepam 1 mg tablet 1 mg PO TID PRN (Reason: anxiety) 30 Days Qty: 90 0RF epinephrine [EpiPen 2-Tahir] 0.3 mg/0.3 mL auto-injector 0.3 mg IM Q4H PRN (Reason: anaphylaxis) Qty: 2 0RF ibuprofen 600 mg tablet 600 mg PO Q8H PRN PRN (Reason: pain) Qty: 16 0RF Primary Care Provider: Neymar Mayo Referrals: Neymar Mayo MD [Primary Care Provider] - Disposition Disposition: Home, Self Care Discharge Date/Time: 02/09/23 17:22
[2023-02-09 12:06] LABS: AST(SGOT) 21 U/L (15-37); Alanine Aminotransfer ALT/SGPT 50 U/L (13-56); Albumin, Serum 3.9 g/dL (3.2-5.0); Alkaline Phosphatase 79 U/L (45-117); Anion Gap 6 (5-15); BUN 10 mg/dL (7-18); BUN/Creat Ratio 11.3 RATIO (10-20); Bilirubin, Direct 0.17 mg/dL (0.00-0.30); Calcium,Total 9.1 mg/dL (8.5-10.1); Chloride 110 mmol/L (98-107); Creatinine, Serum 0.89 mg/dL (0.55-1.02); EST Glomerular Filtration Rate 73 mL/min (>60); Est Glom Filt Rate - Afr Amer 88 mL/min (>60); Estimated Creatinine Clearance 66.03 ml/min; Globulin 3.3 g/dL (2.2-4.2); Glucose 98 mg/dL (74-106); Lipase 28 U/L (13-75); Protein, Total 7.2 g/dL (6.4-8.2); Sodium Level 140 mmol/L (136-145)
[2023-02-09] MEDS: 0.9% Normal Saline 1,000 ML 999 ML IV (12:13)
[2023-02-09] MEDS: Morphine 4 MG/ML Syringe IV ×2 (12:14→13:41)
[2023-02-09] MEDS: Ondansetron 4 MG/2 ML Vial IV (12:14)
--- NOTE | 2023-02-09 14:25 | CT_ITS ---
STUDY: CT ABDOMEN AND PELVIS WITH CONTRAST REASON FOR EXAM: Female, 47 years old. abdominal pain RADIATION DOSAGE (If Supplied By Facility): CTDIvol = ( 15.28 ) mGy, DLP = ( 865.30 ) mGycm TECHNIQUE: Transaxial images were obtained from the dome of the diaphragm to the symphysis pubis without oral contrast. IV 100mL Isovue-300 was administered. Sagittal and coronal images were reconstructed. Individualized dose optimization techniques were used for this CT. COMPARISON: 06/08/2022. FINDINGS: The visualized lung bases are unremarkable. The visualized portions of the heart are within normal limits. Normal liver. Normal gallbladder and extrahepatic biliary system. Normal spleen. Normal pancreas. Normal bilateral adrenal glands. Normal right kidney. Normal left kidney. Evaluation of the GI tract is limited by absence of oral contrast. Cannot exclude stomach wall thickening. No dilated loops of bowel or evidence for obstruction. Cannot exclude segmental thickening of the [place] of the small or large bowel. Cannot exclude enteritis or colitis. Moderate diffuse fecal retention. There is evidence of previous appendectomy. Normal abdominal aorta. Normal inferior vena cava. Normal retroperitoneum. Normal urinary bladder. There is absence of the uterus consistent with a prior hysterectomy. Normal abdominal wall. Normal osseous structures. CT/Abdomen/Pelvis W IV Cont ONLY IMPRESSION: No definite acute or significant abnormality seen. Electronically Signed: Garfield Christine MD at 17:16 EDT ,
[2023-02-09] MEDS: MethylPREDNISolone 125 MG/2 ML Vial IV (14:37)
[2023-02-09] MEDS: DiphenhydrAMINE 50 MG/ML Syringe IV (14:37)
[2023-02-09 14:40] VITALS: BP 143/84; PULSE 68; RESP 18; O2SAT 98
[2023-02-09] MEDS: HYDROmorphone 0.5 MG/0.5 ML SYRINGE IV (15:45)
[2023-02-09 16:08] VITALS: RESP 16
== END 2023-02-09 17:22 | disposition home or self-care (01) ==
PROVIDERS: Emergency Provider Student in an Organized Health Care Education/Training Program; PCP Internal Medicine; Visit Provider Student in an Organized Health Care Education/Training Program
DX: R10.11 Right upper quadrant pain (principal); I10 Essential (primary) hypertension; E78.00 Pure hypercholesterolemia, unspecified; K21.9 Gastro-esophageal reflux disease without esophagitis; Z79.899 Other long term (current) drug therapy; F41.8 Other specified anxiety disorders; Z79.1 Long term (current) use of non-steroidal anti-inflammatories (NSAID); Z90.49 Acquired absence of other specified parts of digestive tract; Z90.710 Acquired absence of both cervix and uterus; F17.210 Nicotine dependence, cigarettes, uncomplicated
CPT/HCPCS: 74177; 76705; 80048; 80076; 83690; 85025; 96361; 96374; 96375; 96376; 99283; J7030; Q9967; A4216; J2405

== ENCOUNTER 2023-03-02 15:43 | Emergency (ER) | payer BC, MEDICAID, SELFPAY ==
[2023-03-02 15:44] VITALS: BP 116/84; PULSE 113; RESP 18; TEMP 35.9; O2SAT 98; BMI 32.9
[2023-03-02 16:38] LABS: Absolute Lymphocyte Count 3.03 X10^3/uL (0.83-4.51); Absolute Neutrophil Count 4.2 X10^3/uL (2.0-7.7); Basophil# 0.06 X10^3/uL; Basophil% 0.7 % (0-1); Eosinophil# 0.19 X10^3/uL; Eosinophils% 2.4 % (0-5); Hematocrit 41.9 % (37-47); Hemoglobin 14.7 g/dL (12.0-15.0); Lymphocyte # 3.03 X10^3/ul (0.83-4.51); Lymphocyte % 37.5 % (19-41); Mean Corp Hgb Conc 35.1 g/dL (32-36); Mean Corpuscular Hgb 32.8 pg (27.0-32.0); Mean Corpuscular Volume 93.5 fL (81-99); Mean Platelet Vol. 11.2 fl (6.2-12.0); Monocyte# 0.58 X10^3/uL; Monocyte% 7.2 % (0-10); NRBC Flagged by Analyzer 0 % (0-5); Neutrophil # 4.19 X10^3/uL (2.7-7.7); Platelet Count 218 K/mm3 (150-450); RBC Distribution Width CV 12.9 % (11.6-14.6); RBC Distribution Width SD 44.8 fl (35.1-43.9); Red Blood Count 4.48 M/mm3 (4.2-5.4); White Blood Count 8.1 K/mm3 (4.4-11.0)
--- NOTE | 2023-03-02 16:38 | EDS_ITS ---
HPI History of Present Illness Chief Complaint: Abd Pain PFSH PFS Medical History Anal fissure Anxiety and depression Arthritis Cervical radiculopathy Contact dermatitis Depression Fatty liver Fibromyalgia Gastric reflux GI problem Headache, migraine 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 High cholesterol History of pneumonia History of stress test Hyperlipidemia Hypertension Injury of back Left carpal tunnel syndrome Left shoulder pain Left shoulder tendinitis Liver disease Lupus MDD (major depressive disorder) Menopausal hot flushes ROWAN (nonalcoholic steatohepatitis) Oral thrush Panic disorder Physical exam, pre-employment Rectal prolapse Restless legs Smoker Vaginal kushal Home Medications omeprazole 40 mg capsule,delayed release 40 mg PO BID #90 caps 12/19/20 [Rx Last Taken Unknown] Vitamin C 500 mg PO DAILY 06/29/21 [History Last Taken Unknown] epinephrine 0.3 mg/0.3 mL injection, auto-injector (EpiPen 2-Tahir) 0.3 mg (0.3 mL) IM Q4H PRN anaphylaxis #2 ea 07/28/22 [Rx Last Taken Unknown] multivitamin 1 tab PO DAILY 09/14/22 [History Last Taken Unknown] ibuprofen 600 mg tablet 600 mg PO Q8H PRN PRN pain #16 TABLETS 09/26/22 [Rx Last Taken Unknown] buspirone 15 mg tablet 15 mg PO BID #60 tabs 12/02/22 [Rx Last Taken Unknown] paroxetine HCl 40 mg tablet 40 mg PO DAILY #60 tabs 02/10/23 [Rx Last Taken Unknown] Allergy/AdvReac Type Severity Reaction Status Date / Time shellfish derived Allergy Severe Anaphylaxis Verified 03/02/23 15:46 tree nut Allergy Severe Anaphylaxis Verified 03/02/23 15:46 adhesive Allergy NEEDS Verified 03/02/23 15:46 FOLLOW-UP amoxicillin trihydrate Allergy Hives Verified 03/02/23 15:46 [From Augmentin] Iodinated Contrast Media Allergy Swelling Verified 03/02/23 15:46 [DYEE] nitrofurantoin Allergy Hives Verified 03/02/23 15:46 macrocrystalline [From Macrodantin] phenazopyridine Allergy Hives Verified 03/02/23 15:46 [From Pyridium] potassium clavulanate Allergy Hives Verified 03/02/23 15:46 [From Augmentin] sulfamethoxazole Allergy Hives Verified 03/02/23 15:46 [From Bactrim] trimethoprim [From Bactrim] Allergy Hives Verified 03/02/23 15:46 Family History Father Alcoholism CVA (cerebral vascular accident) Mother Cancer Melanoma Grandfather Cancer Grandmother Cancer Other Arthritis Autoimmune disorder Breast cancer Colon cancer Depression Heart disease Hypertension Liver disease Myocardial infarction Ovarian cancer Psychiatric care Thyroid disorder Uterine cancer ulcer disease Surgical History History of appendectomy History of exploratory laparotomy History of oophorectomy History of tonsillectomy Hx of section Hx of hernia repair Hx of hysterectomy Social History household members: none Smoking Status: Current every day smoker tobacco type: cigarettes alcohol intake: never substance use type: does not use EXAM Physical Exam Const Vital Signs: 03/02/23 15:44 03/02/23 18:59 Temperature 96.7 F L Temperature Source Temporal Pulse Rate 113 H Respiratory Rate 18 18 Blood Pressure 116/84 H Blood Pressure Mean 94 Pulse Ox 98 Oxygen Delivery Method Room Air MDM MDM MDM Narrative Medical decision making narrative: HISTORY OF PRESENT ILLNESS: 48-year-old female here with abdominal pain nausea concerned about blood clots in her stool this morning. She states she had 1 day of left lower quad abdominal pain. Notes some blood in her stool earlier today. No urinary symptoms. No vaginal bleeding or discharge. No vomiting but notes nausea. No fevers. No recent trauma. Notes history of multiple abdominal surgeries. Last bowel was today. REVIEW OF SYSTEMS: Pertinent positives: Abdominal pain, blood in the stool Pertinent negatives: Chest pain, shortness of breath, syncope, urinary complaint PHYSICAL EXAM: Nursing triage notes reviewed, Vital signs reviewed Constitutional: please see mdm HENT: MMM Eyes: Pupils equal round and reactive to light, Extraocular muscles intact Neck: No stridor, no JVD, full neck ROM Lungs: Clear to auscultation, No wheezing or rales. No increased work of breathing, no conversational dyspnea, no accessory muscle use, no nasal flaring. No respiratory distress noted Heart: Regular rate and rhythm, No murmurs, No rubs and No gallops, 2+ distal pulses (radial, femoral, posterior tibial) in all extremities Abdomen: Soft, there is left lower quadrant tenderness, no obvious hernia there is no rigidity, rebound or guarding, no obvious peritoneal signs, no palpable pulsatile abdominal masses, no auscultated abdominal bruit : No CVAT Rectal: Performed real estate development manager in the room. No obvious rectal prolapse. No obvious melena or hematochezia Extremities: No edema Neuro: No focal neurological deficits, cranial nerves II through XII intact, 5/5 strength in all extremities. Intact sensation to light touch in all extremities, 2+ reflexes bilateral patella tendons. Normal gait. No ataxia. Skin: No rash or lesions noted MEDICAL DECISION MAKING: Chief Complaint: Abdominal pain External records reviewed: [No blood thinners, CT scan of the abdomen pelvis from 02/09/2023 shows no acute abnormality. Right upper quadrant ultrasound was negative at this time as Factors affecting care: Panic disorder, hyperlipidemia, ischemic colitis, anxiety depression, hyperlipidemia, prior myalgia, hypertension, Rowan Social determinants of health: None History obtained from others: none Consults: None ALL IMAGES (IF OBTAINED) HAVE BEEN PERSONALLY REVIEWED AND INTERPRETED BY MYSELF. Urine test is negative Urinalysis shows no evidence of urinary inflammation suggestive of UTI CBC without leukocytosis, severe anemia, no thrombocytopenia. CMP without evidence of acute kidney injury, significant electrolyte abnormality, anion gap, no evidence hepatobiliary pathology. Lipase is wnl indicating no pancreatic inflammation. MDM Narrative: Patient was hemodynamically stable, afebrile, nontoxic-appearing slightly tachycardic abdominal exam exam at left lower quadrant TTP but no rebound or guarding or peritoneal signs. I considered the following differential diagnosis: Concern for diverticulitis wa s pyelonephritis versus nephrolithiasis. I obtained a CT scan abdomen pelvis, labs including lipase urine urine . Gave IV narcotics, 1 L normal saline kept n.p.o. and Zofran for symptomatic control. Images were remarkable for no evidence of systemic inflammation, anemia, Hemoccult test is negative. Rectal exam without rectal prolapse. CT without acute surgical pathology. No clear life-limiting etiology could be ascertained. Patient is appropriate discharge home with close outpatient GI follow-up. The patient and/or family, caregivers express understanding. The patient and/or family, caregivers agrees with the plan. Total critical care time today provided was at least 0 minutes. This excludes separately billable procedures. Critical care time (if documented) is secondary to the patient having high probability of clinically significant/life threatening deterioration in the patient's condition which required my urgent intervention. Shared decision making: I will have a discussion with the patient and or visitors regarding risk/benefits of further testing or admission. They will be made aware of of the risk/benefits inherent in this decision they will be given the opportunity to voice understanding. Lab Data Attestation: I reviewed the patient's lab results. Labs: Laboratory Results - last 24 hr 03/02/23 03/02/23 16:25 16:45 WBC 8.1 RBC 4.48 Hgb 14.7 Hct 41.9 MCV 93.5 MCH 32.8 H MCHC 35.1 RDW Std Deviation 44.8 H RDW Coeff of [place] 12.9 Plt Count 218 MPV 11.2 Immature Gran % (Auto) 0.200 Neut % (Auto) 52.0 Lymph % (Auto) 37.5 [place] % (Auto) 7.2 Eos % (Auto) 2.4 Baso % (Auto) 0.7 Absolute Neuts (auto) 4.2 Absolute Lymphs (auto) 3.03 Nucleated RBC % 0 Sodium 140 Potassium 4.0 Chloride 110 H Carbon Dioxide 26.0 Anion Gap 4 L BUN 11 Creatinine 0.90 Estim Creat Clear Calc 64.61 Est GFR (MDRD) Af Amer 87 Est GFR (MDRD) Non-Af 72 BUN/Creatinine Ratio 12.2 Glucose 96 Calcium 8.9 Total Bilirubin 0.30 AST 23 ALT 47 Alkaline Phosphatase 80 Total Protein 7.1 Albumin 3.7 Globulin 3.4 Albumin/Globulin Ratio 1.1 Lipase 38 Urine Color Yellow Urine Clarity Sl. Cloudy Urine pH 7.0 Ur Specific [place] 1.010 Urine Protein Negative Urine Glucose (UA) Normal Urine Ketones Negative Urine Occult Blood Negative Urine Nitrite Negative Urine Bilirubin Negative Urine Urobilinogen 1 H Ur Leukocyte Esterase 25 H Urine RBC 0-5 SEEN Urine WBC 0-5 SEEN Ur Squamous Epith Cells 0-5 SEEN Urine Bacteria 0 SEEN Urine Mucus 0 SEEN Urine Test Negative Radiography Diagnostic Testing: Clinical Impression(s) from Imaging Studies Abdomen/Pelvis CT 03/02/23 17:24 IMPRESSION: Right upper quadrant ventral hernia containing fat. Electronically Signed: Zachariah Main MD at 18:20 EDT , Discharge Plan Triage Chief Complaint: Abd Pain Other Complaint: GI Bleed ED Provider: Juarez Mendez Dx/Rx/DC Orders Clinical Impression: Abdominal pain, left lower quadrant Instructions: Abdominal Pain Prescriptions: No Action omeprazole 40 mg capsule,delayed release(DR/EC) 40 mg PO BID Qty: 90 1RF Vitamin C 500 mg PO DAILY multivitamin Tablet 1 tab PO DAILY buspirone 15 mg tablet 15 mg PO BID Qty: 60 1RF epinephrine [EpiPen 2-Tahir] 0.3 mg/0.3 mL auto-injector 0.3 mg IM Q4H PRN (Reason: anaphylaxis) Qty: 2 0RF ibuprofen 600 mg tablet 600 mg PO Q8H PRN PRN (Reason: pain) Qty: 16 0RF paroxetine HCl 40 mg tablet 40 mg PO DAILY Qty: 60 1RF Primary Care Provider: Neymar Mayo Referrals: Tushar Martino, [Med Staff - Active Staff] - Activity Restrictions/Additional Instructions: Thank you for trusting us with your care today! Please take Tylenol (2 pills, 650 mg), ibuprofen (2 pills, 400 mg) every 6 hours as needed for pain and fever control. Please return to the emergency department if your symptoms change or worsen. Please follow with your primary care physician for further outpatient evaluation and management. Disposition Disposition: Home, Self Care
[2023-03-02 16:53] LABS: ALB/GLOB Ratio 1.1 RATIO (0.9-2.4); AST(SGOT) 23 U/L (15-37); Alanine Aminotransfer ALT/SGPT 47 U/L (13-56); Albumin, Serum 3.7 g/dL (3.2-5.0); Alkaline Phosphatase 80 U/L (45-117); Anion Gap 4 (5-15); BUN 11 mg/dL (7-18); BUN/Creat Ratio 12.2 RATIO (10-20); Calcium,Total 8.9 mg/dL (8.5-10.1); Chloride 110 mmol/L (98-107); EST Glomerular Filtration Rate 72 mL/min (>60); Est Glom Filt Rate - Afr Amer 87 mL/min (>60); Estimated Creatinine Clearance 64.61 ml/min; Globulin 3.4 g/dL (2.2-4.2); Glucose 96 mg/dL (74-106); Protein, Total 7.1 g/dL (6.4-8.2); Sodium Level 140 mmol/L (136-145)
[2023-03-02 16:55] LABS: Bacteria 0 SEEN /hpf (None Seen); Mucous, Urine 0 SEEN /hpf (<or=2+)
[2023-03-02 17:00] LABS: Color, Urine Yellow (Yellow); Glucose, Dipstick Normal (Normal); Ketone-Dipstick Negative (Negative); Leukocyte Esterase-Dipstick 25 /ul (Negative); Nitrite-Dipstick Negative (Negative); Occult Blood-Urine Negative /ul (Negative); Protein-Dipstick Negative (Negative); Urine Bilirubin Dipstick Negative (Negative); Urine Clarity Sl. Cloudy (Clear); Urine Urobilinogen 1 mg/dl (Normal)
[2023-03-02 17:03] LABS: Internal QC Validated? YES +Cl - CLEAR BKGD; Pregnancy, Urine Negative Negative
[2023-03-02 17:03] LABS: Lipase 38 U/L (13-75)
[2023-03-02 17:19] LABS: Red Blood Cells-Urine 0-5 SEEN /hpf (0-5); Squamous Epithelial Cells - UA 0-5 SEEN /hpf (5-10); White Blood Cells 0-5 SEEN /hpf (0-5)
--- NOTE | 2023-03-02 17:24 | CT_ITS ---
EXAM: CT ABDOMEN AND PELVIS WITHOUT INTRAVENOUS CONTRAST CLINICAL INDICATION: LLQ abdominal pain TECHNIQUE: Helically acquired images were obtained of the abdomen and pelvis without intravenous contrast. This CT exam was performed using one or more of the following dose reduction techniques: automated exposure control, adjustment of the mA and/or kV according to patient size, and/or use of iterative reconstruction technique. RADIATION DOSE: CTDIvol = 9.31 mGy, DLP = 437.37 mGy-cm COMPARISON: 6.14.23 FINDINGS: LOWER THORAX: Unremarkable. Lung bases are clear. No cardiomegaly. No significant pericardial effusion. ABDOMEN: LIVER: Unremarkable. Homogeneous. GALLBLADDER AND BILE DUCTS: Unremarkable. No calcified gallstones. No gallbladder distention or wall edema. No intra- or extrahepatic biliary ductal dilation. PANCREAS: Unremarkable. No focal cystic mass. SPLEEN: Unremarkable. Normal size without focal cystic or solid mass. ADRENALS: Unremarkable. No nodules. KIDNEYS AND URETERS: Unremarkable. Normal renal size and position. No hydronephrosis. STOMACH AND BOWEL: Unremarkable. No stomach or bowel distention. No focal inflammatory change. PELVIS: APPENDIX: Appendectomy changes. BLADDER: Unremarkable. REPRODUCTIVE: The uterus is not visualized and is most likely surgically absent. ABDOMEN and PELVIS: INTRAPERITONEAL SPACE: Unremarkable. No ascites or other fluid collection. No free air. BONES/JOINTS: Unremarkable. No suspicious lytic or blastic abnormality. SOFT TISSUES: Right upper quadrant ventral hernia containing fat. VASCULATURE: Unremarkable. Abdominal aorta is non-dilated. LYMPH NODES: Unremarkable. No enlarged lymph nodes. CT/Abdomen/Pelvis without Cont IMPRESSION: Right upper quadrant ventral hernia containing fat. Electronically Signed: Zachariah Main MD at 18:20 EDT Reading Location ID and State: [facility] / [place] , Service support ,
[2023-03-02] MEDS: 0.9% Normal Saline 1,000 ML 1000 ML IV (17:30)
[2023-03-02] MEDS: Morphine 4 MG/ML Syringe IV (17:30)
[2023-03-02] MEDS: Ondansetron 4 MG/2 ML Vial IV (17:30)
[2023-03-02 18:59] VITALS: RESP 18
== END 2023-03-02 20:04 | disposition home or self-care (01) ==
PROVIDERS: Emergency Provider Emergency Medicine; PCP Internal Medicine; Visit Provider Emergency Medicine
DX: R10.32 Left lower quadrant pain (principal); R11.0 Nausea; E78.00 Pure hypercholesterolemia, unspecified; I10 Essential (primary) hypertension; K21.9 Gastro-esophageal reflux disease without esophagitis; F41.8 Other specified anxiety disorders; Z79.899 Other long term (current) drug therapy; Z90.49 Acquired absence of other specified parts of digestive tract; Z90.710 Acquired absence of both cervix and uterus; F17.210 Nicotine dependence, cigarettes, uncomplicated
CPT/HCPCS: 74176; 80053; 81001; 81025; 82274; 83690; 85025; 96361; 96374; 96375; 99283; J7030; A4216; J2405

== ENCOUNTER 2023-04-27 15:25 | Observation (INO) | payer MEDICAID, SELFPAY ==
[2023-04-27] VITALS (10 sets, daily range): BP systolic 120–162; BP diastolic 64–100; PULSE 70–94; RESP 16–18; TEMP 35.5–36.9; O2SAT 92–100; BMI 33.9; BMI 32.5
--- NOTE | 2023-04-27 15:53 | NURSING ---
STROKE ALERT CALLED
--- NOTE | 2023-04-27 15:54 | EKG12_ITS ---
Test Reason : SOB Blood Pressure : / mmHG Vent. Rate : 101 BPM Atrial Rate : 101 BPM P-R Int : 156 ms QRS Dur : 076 ms QT Int : 328 ms P-R-T Axes : 051 061 052 degrees QTc Int : 425 ms Sinus tachycardia Otherwise normal ECG Confirmed by KATHIA MELGAR, GASTON ([id number]), copy editor GLORY HERNANDEZ ([id number]) on 05/06/2023 11:24:17 AM Referred By: Confirmed By:GASTON BAE MD
--- NOTE | 2023-04-27 15:54 | CT_ITS ---
We are attempting to reach an attending provider to discuss findings. An addendum with communication details will be sent when the communication is complete. EXAMINATION : Head CT w/out contrast HISTORY : Neuro deficit, acute, stroke suspected COMPARISON : None. TECHNIQUE : Multiple contiguous axial images were obtained from the skull base to the vertex without intravenous contrast. A radiation dose optimization technique was used for this scan. FINDINGS : The ventricles and sulci are normal in size. There is no evidence for acute intracranial hemorrhage, mass effect, or midline shift. There is no extra-axial fluid collection. There is normal greer-white differentiation, without CT evidence of acute ischemia or infarct. The skull base and calvarium are unremarkable. The orbits are unremarkable. The paranasal sinuses are clear. The mastoid air cells are well-aerated. The soft tissues are unremarkable. CT/STROKE Brain/Head without Cont IMPRESSION: No acute intracranial abnormality. Electronically Signed: Dhruv Wisdom MD at 16:07 EDT ,
--- NOTE | 2023-04-27 15:54 | CT_ITS ---
We are attempting to reach an attending provider to discuss findings. An addendum with communication details will be sent when the communication is complete. EXAM: CT ANGIOGRAPHY HEAD AND NECK WITH INTRAVENOUS CONTRAST CLINICAL INDICATION: Neuro deficit, acute, stroke suspected TECHNIQUE: [place] [facility] [place]/head and neck CT angiography protocol performed with intravenous contrast. This CT exam was performed using one or more of the following dose reduction techniques: automated exposure control, adjustment of the mA and/or kV according to patient size, and/or use of iterative reconstruction technique. MIP reconstructed images were created and reviewed. CONTRAST: IV 100mL [id number] COMPARISON: No relevant prior studies available. FINDINGS: HEAD: RIGHT ANTERIOR CEREBRAL ARTERY: Unremarkable. No significant stenosis at the visualized segments. Anterior communicating artery is present. No aneurysm. RIGHT MIDDLE CEREBRAL ARTERY: Unremarkable. No significant stenosis at the visualized segments. No aneurysm. RIGHT POSTERIOR CEREBRAL ARTERY: Unremarkable. No occlusion or significant stenosis. No aneurysm. RIGHT INTRACRANIAL INTERNAL CAROTID ARTERY: Unremarkable. No significant stenosis. No dissection or occlusion. RIGHT INTRACRANIAL VERTEBRAL ARTERY: Unremarkable. No significant stenosis. No dissection or occlusion. LEFT ANTERIOR CEREBRAL ARTERY: Unremarkable. No significant stenosis at the visualized segments. No aneurysm. LEFT MIDDLE CEREBRAL ARTERY: Unremarkable. No significant stenosis at the visualized segments. No aneurysm. LEFT POSTERIOR CEREBRAL ARTERY: Unremarkable. No occlusion or significant stenosis. No aneurysm. LEFT INTRACRANIAL INTERNAL CAROTID ARTERY: Unremarkable. No significant stenosis. No dissection or occlusion. LEFT INTRACRANIAL VERTEBRAL ARTERY: Unremarkable. No significant stenosis. No dissection or occlusion. BASILAR ARTERY: Unremarkable. No significant stenosis. No aneurysm. OTHER VASCULATURE: No vascular malformation. NECK: RIGHT COMMON CAROTID ARTERY: Unremarkable. No significant stenosis. No dissection or occlusion. RIGHT EXTRACRANIAL INTERNAL CAROTID ARTERY: Unremarkable. No significant stenosis. No dissection or occlusion. RIGHT EXTERNAL CAROTID ARTERY: Unremarkable. No occlusion. RIGHT EXTRACRANIAL VERTEBRAL ARTERY: Unremarkable. No significant stenosis. No dissection or occlusion. LEFT COMMON CAROTID ARTERY: Unremarkable. No significant stenosis. No dissection or occlusion. LEFT EXTRACRANIAL INTERNAL CAROTID ARTERY: Unremarkable. No significant stenosis. No dissection or occlusion. LEFT EXTERNAL CAROTID ARTERY: Unremarkable. No occlusion. LEFT EXTRACRANIAL VERTEBRAL ARTERY: Unremarkable. No significant stenosis. No dissection or occlusion. BRACHIOCEPHALIC AND SUBCLAVIAN ARTERIES: Unremarkable as visualized. No occlusion or significant stenosis. LUNG APICES: Unremarkable as visualized. HEAD and NECK: BONES/JOINTS: Unremarkable. No discrete lytic or blastic abnormalities. SOFT TISSUES: Unremarkable. CAROTID STENOSIS REFERENCE USING NASCET CRITERIA: % ICA stenosis = (1 - narrowest ICA diameter/diameter of distal cervical ICA) x 100. Mild - <50% stenosis. Moderate - 50-69% stenosis. Severe - 70-94% stenosis. Near occlusion - 95-99% stenosis. Occluded - 100% stenosis. CT/STROKE CTA Head AND Neck W/Con IMPRESSION: Negative CTA carotid and CTA brain. Electronically Signed: Benny Li MD at 17:41 EDT ,
--- NOTE | 2023-04-27 15:57 | ED.VIS.STROK ---
HPI History of Present Illness Chief Complaint: Chest Other Narrative Narrative: 48-year-old female multiple medical problems and multiple allergies presents with right arm weakness that began at approximately 230. She states that she was at work, and then began having numbness of her right arm. She was unable to hold anything in her right arm. Upon arrival to the ED, she states that she started having left-sided head pain, and problems with her right leg. She also thinks that she may be having problems finding her words. This all began while she was at work and seems to have worsened for her. Past medical history does not use PTSD, panic disorder, fibromyalgia, and hypertension. She had cervical radiculopathy in the past according to her problem list as well. [facility] Medical History Anal fissure Anxiety and depression Arthritis Cervical radiculopathy Contact dermatitis Depression Fatty liver Fibromyalgia Gastric reflux GI problem Headache, migraine 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 High cholesterol History of pneumonia History of stress test Hyperlipidemia Hypertension Injury of back Left carpal tunnel syndrome Left shoulder pain Left shoulder tendinitis Liver disease Lupus MDD (major depressive disorder) Menopausal hot flushes POWELL (nonalcoholic steatohepatitis) Oral thrush Panic disorder Physical exam, pre-employment PTSD (post-traumatic stress disorder) Rectal prolapse Restless legs Smoker Vaginal kushal Home Medications omeprazole 40 mg capsule,delayed release 40 mg PO BID #90 caps 12/19/20 [Rx Last Taken Unknown] epinephrine 0.3 mg/0.3 mL injection, auto-injector (EpiPen 2-Tahir) 0.3 mg (0.3 mL) IM Q4H PRN anaphylaxis #2 ea 07/28/22 [Rx Last Taken Unknown] multivitamin 1 tab PO DAILY 09/14/22 [History Last Taken Unknown] ibuprofen 600 mg tablet 600 mg PO Q8H PRN PRN pain #16 TABLETS 09/26/22 [Rx Last Taken Unknown] paroxetine HCl 40 mg tablet 40 mg PO DAILY #60 tabs 02/10/23 [Rx Last Taken Unknown] gabapentin 300 mg capsule See Rx Instructions PO .COMPLEX #150 caps 04/21/23 [Rx Last Taken Unknown] buspirone 15 mg tablet See Rx Instructions .Route .COMPLEX #60 tabs 04/25/23 [Rx Last Taken Unknown] Allergy/AdvReac Type Severity Reaction Status Date / Time shellfish derived Allergy Severe Anaphylaxis Verified 04/27/23 15:26 tree nut Allergy Severe Anaphylaxis Verified 04/27/23 15:26 adhesive Allergy NEEDS Verified 04/27/23 15:26 FOLLOW-UP amoxicillin trihydrate Allergy Hives Verified 04/27/23 15:26 [From Augmentin] Iodinated Contrast Media Allergy Swelling Verified 04/27/23 15:26 [DYEE] nitrofurantoin Allergy Hives Verified 04/27/23 15:26 macrocrystalline [From Macrodantin] phenazopyridine Allergy Hives Verified 04/27/23 15:26 [From Pyridium] potassium clavulanate Allergy Hives Verified 04/27/23 15:26 [From Augmentin] sulfamethoxazole Allergy Hives Verified 04/27/23 15:26 [From Bactrim] trimethoprim [From Bactrim] Allergy Hives Verified 04/27/23 15:26 Family History Father Alcoholism CVA (cerebral vascular accident) Mother Cancer Melanoma Grandfather Cancer Grandmother Cancer Other Arthritis Autoimmune disorder Breast cancer Colon cancer Depression Heart disease Hypertension Liver disease Myocardial infarction Ovarian cancer Psychiatric care Thyroid disorder Uterine cancer ulcer disease Surgical History History of appendectomy History of exploratory laparotomy History of oophorectomy History of tonsillectomy Hx of section Hx of hernia repair Hx of hysterectomy Social History household members: none Smoking Status: Current every day smoker tobacco type: cigarettes alcohol intake: never substance use type: does not use ROS ROS ED ROS Narrative Constitutional: No fever, no chills. HEENT: No sore throat. No neck pain. No loss of vision. No rhinorrhea. Cardiovascular: Questionable chest pain. No palpitations. No pedal edema. Respiratory: No cough, no shortness of breath. Abdominal: No abdominal pain. No nausea. No vomiting. Genitourinary: No dysuria. No hematuria. Musculoskeletal: No myalgias. No arthralgias. Neurologic: Left-sided headaches. No dizziness. No lightheadedness. Right upper and lower extremity weakness and numbness. Difficulty finding words. Skin: No rash. No change in color. Psychiatric: No depression. No anxiety. EXAM Physical Exam Narrative Exam Narrative: Afebrile. Vital signs noted. HEENT: Normocephalic. Atraumatic. PERRL, EOMI. Neck soft and supple. No point tenderness or step off. Cardiovascular: Regular rate and rhythm. No murmurs, rubs, or gallops appreciated. Respiratory: No tachypnea. Lungs clear to auscultation bilaterally. Gastrointestinal: Abdomen soft, nontender, with normoactive bowel sounds. No rebound or guarding. Neurological: Awake. Alert. Nonfocal, nonlateralizing. NIH stroke scale is essentially 5, for slight pronator drift of her right upper extremity, weakness of her right lower extremity as she could not hold it up for 10 seconds, intermittently she developed a slight aphasia when asked to repeat words, and decreased sensation of her right upper and lower extremity. Skin: No rash. Normal color. No pallor. Musculoskeletal: No pedal edema. Full range of motion extremities. Const Vital Signs: 04/27/23 15:26 04/27/23 16:02 04/27/23 15:54 Temperature 96 F L Temperature Source Temporal Pulse Rate 94 85 Respiratory Rate 18 17 Blood Pressure 148/92 H 162/86 H Blood Pressure Mean 110 111 Pulse Ox 100 98 Oxygen Delivery Method Room Air Room Air Room Air 04/27/23 16:30 04/27/23 17:00 04/27/23 17:30 Temperature Temperature Source Pulse Rate 81 75 76 Respiratory Rate 16 18 16 Blood Pressure 149/83 H 141/81 H 139/100 H Blood Pressure Mean 105 101 113 Pulse Ox 100 94 96 Oxygen Delivery Method Room Air Room Air Room Air 04/27/23 18:00 04/27/23 18:30 04/27/23 18:30 Temperature 97.1 F L Temperature Source Temporal Pulse Rate 70 70 74 Respiratory Rate 17 17 17 Blood Pressure 139/87 H 139/87 H 144/77 H Blood Pressure Mean 104 104 99 Pulse Ox 94 94 95 Oxygen Delivery Method Room Air Room Air Room Air MDM MDM MDM Narrative Medical decision making narrative: Stroke team was called after examination in the emergency department. She has a dye allergy/iodine allergy. Benadryl and methylprednisolone zone were ordered and she will be sent back for CTA after medication. I reviewed her laboratory work, she has normal white count of 8.8, hemoglobin normal at 14.4, hematocrit 44.8, normal platelet count of 247. BMP was reviewed and she has normal sodium of 138, potassium normal at 4.1, chloride slightly elevated at 108 which I think is nonspecific, normal BUN of 15 and normal creatinine of 0.76. High-sensitivity troponin is normal at 4, [id number] glucose normal at 101. EKG was obtained and interpreted by myself as normal sinus rhythm at 88 bpm without ectopy or acute ST changes. No STEMI. I received a call from the radiologist regarding the CT of the brain without contrast. There is no acute process. I reviewed the radiology report as well. In discussion with the neurologist, her symptoms are ever-changing as he noted that she had a facial droop intermittently, while she did not have one upon my examination. Given her right-sided weakness on examination, neurology suggested that she be offered TNK. This was not administered as the patient declined receiving the medication after she was told of the risk-benefit ratio, and possibility of intracranial or GI hemorrhage. I reviewed the radiology report regarding the CTA of the head and neck which also shows no large vessel occlusion. I then discussed the patient with Dr. Roca for observation on the PCU for her neurological/strokelike symptoms. Disposition is assigned to observation. Patient is in stable condition. History & Record Review Discussion w/independent historian: Patient Additional record(s) reviewed:: Prior ED visit and Prior labs Lab Data Attestation: I reviewed the patient's lab results. Labs: Laboratory Results - last 24 hr 04/27/23 04/27/23 16:00 16:02 WBC 8.8 RBC 4.62 Hgb 14.4 Hct 44.8 MCV 97.0 MCH 31.2 MCHC 32.1 RDW Std Deviation 47.7 H RDW Coeff of Sakina 13.4 Plt Count 247 MPV 11.8 Immature Gran % (Auto) 0.700 Neut % (Auto) 40.0 L Lymph % (Auto) 46.0 H Cross % (Auto) 9.1 Eos % (Auto) 3.1 Baso % (Auto) 1.1 H Absolute Neuts (auto) 3.5 Absolute Lymphs (auto) 4.04 Nucleated RBC % 0 PT 13.1 INR 1.0 APTT 31.6 Sodium 138 Potassium 4.1 Chloride 108 H Carbon Dioxide 24.0 Anion Gap 6 BUN 15 Creatinine 0.76 Estim Creat Clear Calc 76.51 Est GFR (MDRD) Af Amer 105 Est GFR (MDRD) Non-Af 87 BUN/Creatinine Ratio 19.7 Glucose 94 Calcium 9.3 Troponin I High Sens 4 POC Glucose 101 Radiography Diagnostic Testing: Clinical Impression(s) from Imaging Studies Brain CT 04/27/23 15:54 IMPRESSION: No acute intracranial abnormality. Electronically Signed: Dhruv Wisdom MD at 16:07 EDT , ADDENDUM: 04/27/23 1616 IMPRESSION: No acute intracranial abnormality. N.B. : The above Results were Read Back by Dhruv Wisdom MD to Will Delgadillo MD, and understanding confirmed on 04/27/2023 16:09:31 (ET). Electronically Signed: Dhruv Wisdom MD at 16:07 EDT , Head/Neck CTA 04/27/23 15:54 IMPRESSION: Negative CTA carotid and CTA brain. Electronically Signed: Benny Li MD at 17:41 EDT , ADDENDUM: 04/27/23 1750 IMPRESSION: Negative CTA carotid and CTA brain. N.B. : The above Results were Read Back by Benny Li MD to Will Delgadillo MD, and understanding confirmed on 04/27/2023 17:44:58 (ET). Electronically Signed: Benny Li MD at 17:41 EDT , Chest X-Ray 04/27/23 16:14 IMPRESSION: No acute radiographic abnormalities. Electronically Signed: Dhruv Wisdom MD at 16:52 EDT , Management Discussion w/another healthcare provider: Hospitalist, Therapeutic Support Staff (Teleneurologist) and Radiologist Discharge Plan Dx/Rx/DC Orders Clinical Impression: TIA (transient ischemic attack), Mild aphasia, Anxiety and depression, Right sided weakness, Hypertension Disposition Disposition: Acute Care Hospital [facility] Discharge Date/Time: 04/27/23 18:54
--- NOTE | 2023-04-27 16:00 | NURSING ---
FACESHEET FAXED TO [facility]
[2023-04-27] MEDS: MethylPREDNISolone 125 MG/2 ML Vial 80 MG IV (16:09)
[2023-04-27] MEDS: DiphenhydrAMINE 50 MG/ML Syringe 25 MG IV (16:09)
--- NOTE | 2023-04-27 16:12 | CM.ED ---
Social Work Note Referral Source: Stroke Alert Referral Reason: emotional support SW responded to stroke alert, no family/friends at bedside. SW remains available if additional needs arise. Cyndy Hernandez MSW, VAN
--- NOTE | 2023-04-27 16:12 | CHAPLAIN ---
Type of Pastoral Visit ___ Initial Visit ___ Follow-up Visit ___ On-call Visit ___ General Patient Visit ___ Spiritual Assessment ___ Family Conference ___ Bereavement _x__ Rapid Response ___ Code Blue ___ Other (describe below) Pastoral Care Referral From ___ Patient ___ Family ___ Nurse ___ Physician ___ Pattern Marking Supervisor ___ Transfer Worker _x__ Other (describe below) Sacrament/Intervention ___ Active listening ___ Anointing ___ Baptist ___ Bereavement ___ Communion ___ Jess exploration ___ ___ Life review _x__ Prayer ___ Reconciliation ___ Sacrament of Sick _x__ Supportive presence ___ Wedding ___ Other (describe below) Pastoral Comments stroke alert called for patient who walked into ED; pt was taken to CT but when returned, this fitness floor attendant introduced self and offer of support and prayer
--- NOTE | 2023-04-27 16:14 | RAD_ITS ---
INDICATION: Neuro deficit, acute, stroke suspected EXAMINATION/TECHNIQUE: X-RAY - XR Chest 1 View COMPARISON: 01/29/2023. FINDINGS: The lungs are clear. The cardiomediastinal silhouette is unremarkable. No pleural effusion or pneumothorax. No acute osseous abnormalities. RAD/Chest 1 View IMPRESSION: No acute radiographic abnormalities. Electronically Signed: Dhruv Wisdom MD at 16:52 EDT ,
[2023-04-27 16:16] LABS: Absolute Lymphocyte Count 4.04 X10^3/uL (0.83-4.51); Absolute Neutrophil Count 3.5 X10^3/uL (2.0-7.7); Basophil% 1.1 % (0-1); Eosinophil# 0.27 X10^3/uL; Eosinophils% 3.1 % (0-5); Hematocrit 44.8 % (37-47); Hemoglobin 14.4 g/dL (12.0-15.0); Lymphocyte # 4.04 X10^3/ul (0.83-4.51); Mean Corp Hgb Conc 32.1 g/dL (32-36); Mean Corpuscular Hgb 31.2 pg (27.0-32.0); Mean Platelet Vol. 11.8 fl (6.2-12.0); Monocyte% 9.1 % (0-10); NRBC Flagged by Analyzer 0 % (0-5); Neutrophil # 3.52 X10^3/uL (2.7-7.7); Platelet Count 247 K/mm3 (150-450); RBC Distribution Width CV 13.4 % (11.6-14.6); RBC Distribution Width SD 47.7 fl (35.1-43.9); Red Blood Count 4.62 M/mm3 (4.2-5.4); White Blood Count 8.8 K/mm3 (4.4-11.0)
[2023-04-27 16:23] LABS: Bedside Glucose 101 mg/dL (74-106)
[2023-04-27 16:25] LABS: Prothrombin Time (Protime)PT. 13.1 SECONDS (11.7-14.9)
[2023-04-27 16:26] LABS: Partial Thromboplast Time 31.6 Seconds (24.1-36.2)
[2023-04-27 16:30] LABS: Anion Gap 6 (5-15); BUN 15 mg/dL (7-18); BUN/Creat Ratio 19.7 RATIO (10-20); Calcium,Total 9.3 mg/dL (8.5-10.1); Chloride 108 mmol/L (98-107); Creatinine, Serum 0.76 mg/dL (0.55-1.02); EST Glomerular Filtration Rate 87 mL/min (>60); Est Glom Filt Rate - Afr Amer 105 mL/min (>60); Estimated Creatinine Clearance 76.51 ml/min; Glucose 94 mg/dL (74-106); Potassium 4.1 mmol/L (3.5-5.1); Sodium Level 138 mmol/L (136-145); Troponin-I HS 4 pg/mL (3.0-54.0)
--- NOTE | 2023-04-27 18:47 | PCM.HP.STD ---
[facility] - General General Date of Admission: 04/27/23 HPI Narrative FELIX ARITA, is a 48 F who presents to the hospital with a TIA versus CVA versus conversion disorder. She developed some symptoms that were consistent with what could be a TIA versus a stroke with right upper extremity numbness and then she developed right lower extremity weakness then she developed a left-sided headache and then she developed numbness under her right eye, and then she had a dysarthria with facial droop on the neurologist evaluation but not on anyone else's evaluation and then she stated that she had some chest pressure with a normal EKG and normal troponin. She states that all of her symptoms are improving and her chest pressure has resolved but she still has some right upper extremity numbness and right lower extremity weakness. He does not have a history of migraines but states that the symptoms started before the headache. [facility] Medical History Anal fissure Anxiety and depression Arthritis Cervical radiculopathy Contact dermatitis Depression Fatty liver Fibromyalgia Gastric reflux GI problem Headache, migraine 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 High cholesterol History of pneumonia History of stress test Hyperlipidemia Hypertension Injury of back Left carpal tunnel syndrome Left shoulder pain Left shoulder tendinitis Liver disease Lupus MDD (major depressive disorder) Menopausal hot flushes POWELL (nonalcoholic steatohepatitis) Oral thrush Panic disorder Physical exam, pre-employment PTSD (post-traumatic stress disorder) Rectal prolapse Restless legs Smoker Vaginal kushal Home Medications omeprazole 40 mg capsule,delayed release 40 mg PO BID #90 caps 12/19/20 [Rx Last Taken Unknown] epinephrine 0.3 mg/0.3 mL injection, auto-injector (EpiPen 2-Tahir) 0.3 mg (0.3 mL) IM Q4H PRN anaphylaxis #2 ea 07/28/22 [Rx Last Taken Unknown] multivitamin 1 tab PO DAILY 09/14/22 [History Last Taken Unknown] ibuprofen 600 mg tablet 600 mg PO Q8H PRN PRN pain #16 TABLETS 09/26/22 [Rx Last Taken Unknown] paroxetine HCl 40 mg tablet 40 mg PO DAILY #60 tabs 02/10/23 [Rx Last Taken Unknown] gabapentin 300 mg capsule See Rx Instructions PO .COMPLEX #150 caps 04/21/23 [Rx Last Taken Unknown] buspirone 15 mg tablet See Rx Instructions .Route .COMPLEX #60 tabs 04/25/23 [Rx Last Taken Unknown] Allergy/AdvReac Type Severity Reaction Status Date / Time shellfish derived Allergy Severe Anaphylaxis Verified 04/27/23 15:26 tree nut Allergy Severe Anaphylaxis Verified 04/27/23 15:26 adhesive Allergy NEEDS Verified 04/27/23 15:26 FOLLOW-UP amoxicillin trihydrate Allergy Hives Verified 04/27/23 15:26 [From Augmentin] Iodinated Contrast Media Allergy Swelling Verified 04/27/23 15:26 [DYEE] nitrofurantoin Allergy Hives Verified 04/27/23 15:26 macrocrystalline [From Macrodantin] phenazopyridine Allergy Hives Verified 04/27/23 15:26 [From Pyridium] potassium clavulanate Allergy Hives Verified 04/27/23 15:26 [From Augmentin] sulfamethoxazole Allergy Hives Verified 04/27/23 15:26 [From Bactrim] trimethoprim [From Bactrim] Allergy Hives Verified 04/27/23 15:26 Family History Father Alcoholism CVA (cerebral vascular accident) Mother Cancer Melanoma Grandfather Cancer Grandmother Cancer Other Arthritis Autoimmune disorder Breast cancer Colon cancer Depression Heart disease Hypertension Liver disease Myocardial infarction Ovarian cancer Psychiatric care Thyroid disorder Uterine cancer ulcer disease Surgical History History of appendectomy History of exploratory laparotomy History of oophorectomy History of tonsillectomy Hx of section Hx of hernia repair Hx of hysterectomy Social History household members: none Smoking Status: Current every day smoker tobacco type: cigarettes alcohol intake: never substance use type: does not use ROS Constitutional Constitutional: Denies chills, fatigue, fever(s) or malaise Eyes Eyes: Denies blurry vision ENT HEENT: Denies headache(s) or nasal discharge Cardiovascular Cardiovascular: Denies chest pain, dyspnea on exertion or syncope Respiratory/Chest Respiratory/Chest: Denies cough, shortness of breath at rest or shortness of breath with exertion Gastrointestinal Gastrointestinal: Denies constipation, diarrhea, nausea or vomiting Genitourinary Genitourinary: Denies dysuria Neurologic Neurologic: Reports focal weakness, headache(s) and numbness; Denies tremor(s) Psychiatric Psychiatric: Denies anxiety or depression Vital Signs Vital Signs Vital Signs: 04/27/23 15:26 04/27/23 16:02 04/27/23 15:54 Temperature 96 F L Temperature Source Temporal Pulse Rate 94 85 Respiratory Rate 18 17 Blood Pressure 148/92 H 162/86 H Blood Pressure Mean 110 111 Pulse Ox 100 98 Oxygen Delivery Method Room Air Room Air Room Air 04/27/23 16:30 04/27/23 17:00 04/27/23 17:30 Temperature Temperature Source Pulse Rate 81 75 76 Respiratory Rate 16 18 16 Blood Pressure 149/83 H 141/81 H 139/100 H Blood Pressure Mean 105 101 113 Pulse Ox 100 94 96 Oxygen Delivery Method Room Air Room Air Room Air 04/27/23 18:00 04/27/23 18:30 04/27/23 18:30 Temperature 97.1 F L Temperature Source Temporal Pulse Rate 70 70 74 Respiratory Rate 17 17 17 Blood Pressure 139/87 H 139/87 H 144/77 H Blood Pressure Mean 104 104 99 Pulse Ox 94 94 95 Oxygen Delivery Method Room Air Room Air Room Air Weight Weight: 191 lb 5.78 oz Body Mass Index (BMI) 33.9 Physical Exam Narrative General: Alert, Oriented x3, Cooperative, No apparent distress HEENT: Atraumatic, PERRLA, EOMI, Normocephalic Oral: Moist Mucosa Neck: Supple, No JVD Lungs: Clear to auscultation, Normal air movement, No rhonchi, No wheeze, No rales Cardiovascular: Regular rate, Regular Rhythm, Normal S1, Normal S2, No murmurs Abdomen: Soft, Non Tender, Non-Distended, No Hepato-splenomegaly Extremities: No edema, Capillary Refill Less than 3 Seconds Skin: No rashes, No breakdown Musculoskeletal: No Tenderness to Palpation of Joints or Extremities Neurological: No facial droop, there is decreased sensation on the right upper extremity. No apparent drift when right upper right lower extremity are lifted to position though she does demonstrate some weakness against gravity to lift them on her own. Psych/Mental Status: Normal Affect, Appropriate Results Lab / Micro Data 04/27/23 16:00 04/27/23 16:00 Labs: Laboratory Results - last 24 hr 04/27/23 16:00: WBC 8.8, RBC 4.62, Hgb 14.4, Hct 44.8, MCV 97.0, MCH 31.2, MCHC 32.1, RDW Std Deviation 47.7 H, RDW Coeff of Sakina 13.4, Plt Count 247, MPV 11.8, Immature Gran % (Auto) 0.700, Neut % (Auto) 40.0 L, Lymph % (Auto) 46.0 H, [place] % (Auto) 9.1, Eos % (Auto) 3.1, Baso % (Auto) 1.1 H, Absolute Neuts (auto) 3.5, Absolute Lymphs (auto) 4.04, Nucleated RBC % 0, PT 13.1, INR 1.0, APTT 31.6, Sodium 138, Potassium 4.1, Chloride 108 H, Carbon Dioxide 24.0, Anion Gap 6, BUN 15, Creatinine 0.76, Estim Creat Clear Calc 76.51, Est GFR (MDRD) Af Amer 105, Est GFR (MDRD) Non-Af 87, BUN/Creatinine Ratio 19.7, Glucose 94, Calcium 9.3, Troponin I High Sens 4 04/27/23 16:02: POC Glucose [address] 04/27/23 15:54 IMPRESSION: No acute intracranial abnormality. Electronically Signed: Dhruv Wisdom MD at 16:07 EDT , ADDENDUM: 04/27/23 1616 IMPRESSION: No acute intracranial abnormality. N.B. : The above Results were Read Back by Dhruv Wisdom MD to Will Delgadillo MD, and understanding confirmed on 04/27/2023 16:09:31 (ET). Electronically Signed: Dhruv Wisdom MD at 16:07 EDT , Head/Neck CTA 04/27/23 15:54 IMPRESSION: Negative CTA carotid and CTA brain. Electronically Signed: Benny Li MD at 17:41 EDT , ADDENDUM: 04/27/23 1750 IMPRESSION: Negative CTA carotid and CTA brain. N.B. : The above Results were Read Back by Benny Li MD to Will Delgadillo MD, and understanding confirmed on 04/27/2023 17:44:58 (ET). Electronically Signed: Benny Li MD at 17:41 EDT , Chest X-Ray 04/27/23 16:14 IMPRESSION: No acute radiographic abnormalities. Electronically Signed: Dhruv Wisdom MD at 16:52 EDT , Assessment & Plan Assessment/Plan (1) TIA (transient ischemic attack): PLAN: Plan 1. TIA versus CVA ? Possible conversion disorder as expressed by the neurologist and discussion with the ED physician ? We will proceed with stroke work-up with [facility] as well as an MRI and echo in the morning ? CT of the brain was negative for any intracranial hemorrhage, she does state that her father in his 40s from a hemorrhagic stroke ? PT/OT 2. Anxiety/depression ? Stable ? We will continue with her home medications 3. GERD ? Stable ? Continue with her home medications DVT: Ambulation Charges/Coding Visit Charges Inpatient E&M: 57370 Init Hosp L2
--- NOTE | 2023-04-27 19:10 | NURSING ---
Hand off [facility] with FIGURE CLERK done
--- NOTE | 2023-04-27 19:33 | ECHOCS_ITS ---
Reason For Study: TIA/CVA Procedure This was a 2D Doppler, Color Flow transthoracic echocardiogram. The study was technically difficult. Contrast injection was performed. Exam performed portable in patient room. Left Ventricle Normal LV size. The estimated ejection fraction is 70 %. No evidence for diastolic dysfunction. No regional wall motion abnormalities noted. Right Ventricle Normal RV size. Normal systolic function. Atria Normal left atrium. Normal right atrium. No doppler evidence for ASD. Bubble contrast study negative for right to left interatrial shunt. Mitral Valve There is no mitral valve stenosis. No mitral valve insufficiency. Tricuspid Valve There is no tricuspid stenosis. Unable to estimate RV systolic pressure due to inadequate jet, pulmonary artery pressure probably normal. Aortic Valve Trisinus/trileaflet aortic valve. There is no aortic stenosis. No aortic valve insufficiency. Pulmonic Valve There is no pulmonic valvular stenosis. No pulmonic valve insufficiency. Great Vessels Normal aortic root. Pericardium/Pleural No pericardial effusion. Medication Diluted definity 1.5ml given slow IV push to enhance endocardial definition. Performed a rapid injection of agitated mix of 9 cc saline and 1cc air to assess for atrial septal defect. MMode/2D Measurements & Calculations LVIDd: 4.1 cm IVSd: 1.1 cm Ao root diam: 2.4 cm LVIDs: 3.0 cm LVPWd: 1.0 cm LA dimension: 3.8 cm FS: 27.8 % LAV(MOD-bp): 33.5 ml LVAd ap4: 29.1 cm2 SV(MOD-sp4): 59.4 ml LAV(MOD-bp) Indexed: 18.0 ml/m2 LVLd ap4: 7.8 cm LAV(MOD-sp2): 31.0 ml EDV(MOD-sp4): 88.7 ml LAV(MOD-sp4): 32.6 ml EDV(sp4-el): 92.7 ml LVAs ap4: 14.1 cm2 LVLs ap4: 5.7 cm ESV(MOD-sp4): 29.2 ml ESV(sp4-el): 29.6 ml EF(MOD-sp4): 67.0 % EF(sp4-el): 68.1 % SV(sp4-el): 63.1 ml LA A4 area: 14.5 cm2 RA A4 area: 10.5 cm2 TAPSE: 2.0 cm Time Measurements MV dec time: 0.23 sec Doppler Measurements & Calculations MV E max lex: 69.5 cm/sec Lat Peak E' Lex: 9.8 cm/sec Med Peak E' Lex: 11.4 cm/sec MV A max lex: 77.4 cm/sec E/E' lat: 7.1 E/E' med: 6.1 MV E/A: 0.90 MV V2 max: 103.9 cm/sec MV P1/2t max lex: 105.2 cm/sec Ao V2 max: 143.4 cm/sec MV max P.3 mmHg MV P1/2t: 86.1 msec Ao max P.2 mmHg MV V2 mean: 55.1 cm/sec Ao V2 mean: 94.0 cm/sec MV mean P.5 mmHg MV dec slope: 357.8 cm/sec2 Ao mean P.1 mmHg MV V2 VTI: 24.5 cm MVA(P1/2t): 2.6 cm2 Ao V2 VTI: 29.4 cm AV (velocity ratio): 1.00 LV V1 max: 132.2 cm/sec PA V2 max: 107.1 cm/sec LV V1 max P.0 mmHg PA V2 mean: 76.5 cm/sec LV V1 mean P.9 mmHg LV V1 mean: 93.6 cm/sec LV V1 VTI: 29.3 cm ECHO/Echo Complete W/ Contrast Interpretation Summary The estimated ejection fraction is 70 %. No evidence for diastolic dysfunction. Ordering Physician: Mateo Roca Referring Physician: Neymar Mayo Performed By: Naveen Del Real RCS
--- NOTE | 2023-04-27 19:33 | MRI_ITS ---
STUDY: MRI BRAIN WITHOUT CONTRAST REASON FOR EXAM: Female, 48 years old. CVA, rt side numbness, change in speach, blurry vision- now subsided -- unable to remove earring TECHNIQUE: Standardized multiplanar fat and water weighted pulse sequences were obtained. COMPARISON: CT brain April 27, 2023. FINDINGS: Normal size of the ventricles and extra-axial spaces for the patient''s age. Normal white matter tracts of the supratentorial brain. There is no evidence for recent intracranial ischemia or other cause of cytotoxic edema on diffusion weighted imaging (DWI). Normal T2* images of the brain without demonstrated susceptibility artifact. There is no demonstrated hemosiderin stain. Normal bilateral basal ganglia. Normal thalami. There is no extra-axial fluid accumulation. Normal flow voids within the major intracranial circulation suggesting patency by spin echo criteria. Normal sella turcica, pituitary gland, infundibular stalk, optic chiasm and hypothalamus. Normal tectal plate and pineal gland. Normal midbrain, cyn and medulla. Normal cerebellum. Normal basal cisterns. Normal bilateral temporal bones. Normal bilateral internal auditory canals. Orbits are within normal limits. Underpneumatized frontal sinuses. Other paranasal sinuses are clear. Normal calvarium and skull base. Normal visualized upper cervical spine. MRI/Brain without Contrast IMPRESSION: Normal unenhanced MRI of the brain. Electronically Signed: Dakota Chapman DO at 22:32 EDT ,
[2023-04-27] MEDS: Atorvastatin Calcium 80 MG Tablet PO (22:15)
[2023-04-27] MEDS: Gabapentin 300 MG Capsule 900 MG PO (22:15)
[2023-04-27] MEDS: Pantoprazole Sodium 40 MG Tablet PO (22:15)
[2023-04-28 00:16] VITALS: BMI 32.5
[2023-04-28 04:00] VITALS: BP 111/60; PULSE 77; RESP 16; TEMP 36.8; O2SAT 93
[2023-04-28 05:47] LABS: Basophil# 0.02 X10^3/uL; Basophil% 0.2 % (0-1); Hemoglobin 14.2 g/dL (12.0-15.0); Lymphocyte % 12.6 % (19-41); Mean Corpuscular Hgb 31.9 pg (27.0-32.0); Mean Corpuscular Volume 96.6 fL (81-99); Mean Platelet Vol. 12.1 fl (6.2-12.0); Monocyte% 2.5 % (0-10); NRBC Flagged by Analyzer 0 % (0-5); Neutrophil # 10.01 X10^3/uL (2.7-7.7); Neutrophil % 84.2 % (47-70); Platelet Count 241 K/mm3 (150-450); RBC Distribution Width SD 46.1 fl (35.1-43.9); Red Blood Count 4.45 M/mm3 (4.2-5.4); White Blood Count 11.9 K/mm3 (4.4-11.0)
[2023-04-28 06:39] LABS: Anion Gap 4 (5-15); BUN 15 mg/dL (7-18); BUN/Creat Ratio 19.5 RATIO (10-20); Calcium,Total 9.1 mg/dL (8.5-10.1); Chloride 110 mmol/L (98-107); Cholesterol 304 mg/dL (200); Creatinine, Serum 0.77 mg/dL (0.55-1.02); EST Glomerular Filtration Rate 86 mL/min (>60); Est Glom Filt Rate - Afr Amer 104 mL/min (>60); Estimated Creatinine Clearance 75.52 ml/min; Glucose 171 mg/dL (74-106); High Density Lipoprotein 52 mg/dL; Potassium 4.4 mmol/L (3.5-5.1); Sodium Level 139 mmol/L (136-145); Triglycerides 112 mg/dL; Very Low Density Lipoprotein 22 mg/dL (5-40)
[2023-04-28 07:22] VITALS: O2SAT 91
[2023-04-28 09:00] VITALS: BP 127/64; PULSE 76; RESP 18; TEMP 36.7; O2SAT 95
[2023-04-28] MEDS: Gabapentin 300 MG Capsule PO ×2 (09:07→16:58)
[2023-04-28] MEDS: Paroxetine 20 MG Tablet 40 MG PO (09:07)
[2023-04-28] MEDS: Pantoprazole Sodium 40 MG Tablet PO (09:07)
[2023-04-28] MEDS: busPIRone 15 MG TABLET PO (09:07)
[2023-04-28] MEDS: Aspirin 81 MG TAB.CHEW PO (09:07)
[2023-04-28] MEDS: Ibuprofen 600 MG Tablet PO (13:53)
[2023-04-28 14:58] VITALS: BMI 32.5
--- NOTE | 2023-04-28 15:00 | PCM.PN.HOSP ---
Reason for Visit Reason for Visit: Diagnoses Transient cerebral ischemic attack, unspecified (04/27/23) Subjective Subjective Starting at a slight headache but has no further neurologic complaints, has been having some cramping in her right calf muscle that improved with heat Objective Data Objective Data Vital Signs: Vital Signs Temp Pulse Resp BP Pulse Ox O2 Del Method 98.1 F 76 18 127/64 H 95 Room Air 04/28/23 09:00 04/28/23 09:00 04/28/23 09:00 04/28/23 09:00 04/28/23 09:00 04/28/23 14:10 Oxygen Delivery Method Room Air Weight: 83.3 kg Body Mass Index (BMI) 32.5 Intake & Output: Intake and Output for Last 24 Hours 04/26/23 04/27/23 04/28/23 23:59 23:59 23:59 Intake Total 500 / 500 Output Total 0 / 0 Balance 500 / 500 Lab / Micro Data 04/28/23 05:07 04/28/23 05:07 Labs: Laboratory Results - last 24 hr 04/27/23 16:00: WBC 8.8, RBC 4.62, Hgb 14.4, Hct 44.8, MCV 97.0, MCH 31.2, MCHC 32.1, RDW Std Deviation 47.7 H, RDW Coeff of Sakina 13.4, Plt Count 247, MPV 11.8, Immature Gran % (Auto) 0.700, Neut % (Auto) 40.0 L, Lymph % (Auto) 46.0 H, [place] % (Auto) 9.1, Eos % (Auto) 3.1, Baso % (Auto) 1.1 H, Absolute Neuts (auto) 3.5, Absolute Lymphs (auto) 4.04, Nucleated RBC % 0, PT 13.1, INR 1.0, APTT 31.6, Sodium 138, Potassium 4.1, Chloride 108 H, Carbon Dioxide 24.0, Anion Gap 6, BUN 15, Creatinine 0.76, Estim Creat Clear Calc 76.51, Est GFR (MDRD) Af Amer 105, Est GFR (MDRD) Non-Af 87, BUN/Creatinine Ratio 19.7, Glucose 94, Calcium 9.3, Troponin I High Sens 4 04/27/23 16:02: POC Glucose 101 04/28/23 05:07: WBC 11.9 H, RBC 4.45, Hgb 14.2, Hct 43.0, MCV 96.6, MCH 31.9, MCHC 33.0, RDW Std Deviation 46.1 H, RDW Coeff of Sakina 13.0, Plt Count 241, MPV 12.1 H, Immature Gran % (Auto) 0.500, Neut % (Auto) 84.2 H, Lymph % (Auto) 12.6 L, [place] % (Auto) 2.5, Eos % (Auto) 0.0, Baso % (Auto) 0.2, Absolute Neuts (auto) 10.0 H, Absolute Lymphs (auto) 1.50, Nucleated RBC % 0, Sodium 139, Potassium 4.4, Chloride 110 H, Carbon Dioxide 25.0, Anion Gap 4 L, BUN 15, Creatinine 0.77, Estim Creat Clear Calc 75.52, Est GFR (MDRD) Af Amer 104, Est GFR (MDRD) Non-Af 86, BUN/Creatinine Ratio 19.5, Glucose 171 H, Calcium 9.1, Triglycerides 112, Cholesterol 304 H, LDL Cholesterol 230 H, VLDL Cholesterol 22, HDL Cholesterol 52 Radiography Diagnostic Testing: Radiology Impression Brain CT 04/27/23 15:54 IMPRESSION: No acute intracranial abnormality. Electronically Signed: Dhruv Wisdom MD at 16:07 EDT , ADDENDUM: 04/27/23 1616 IMPRESSION: No acute intracranial abnormality. N.B. : The above Results were Read Back by Dhruv Wisdom MD to Will Delgadillo MD, and understanding confirmed on 04/27/2023 16:09:31 (ET). Electronically Signed: Dhruv Wisdom MD at 16:07 EDT , Head/Neck CTA 04/27/23 15:54 IMPRESSION: Negative CTA carotid and CTA brain. Electronically Signed: Benny Li MD at 17:41 EDT , ADDENDUM: 04/27/23 1750 IMPRESSION: Negative CTA carotid and CTA brain. N.B. : The above Results were Read Back by Benny Li MD to Will Delgadillo MD, and understanding confirmed on 04/27/2023 17:44:58 (ET). Electronically Signed: Benny Li MD at 17:41 EDT , Chest X-Ray 04/27/23 16:14 IMPRESSION: No acute radiographic abnormalities. Electronically Signed: Dhruv Wisdom MD at 16:52 EDT , Brain MRI 04/27/23 19:33 IMPRESSION: Normal unenhanced MRI of the brain. Electronically Signed: Dakota Chapman DO at 22:32 EDT , Echocardiogram 04/27/23 19:33 Interpretation Summary The estimated ejection fraction is 70 %. No evidence for diastolic dysfunction. Ordering Physician: Mateo Roca Referring Physician: Neymar Mayo Performed By: Naveen Del Real RCS Physical Exam Narrative General: Alert, oriented, no apparent distress HEENT: Atraumatic, normocephalic Eyes: Anicteric, normal conjunctiva, extraocular movements grossly intact Neck: Supple Respiratory: Clear to auscultation bilaterally, normal respiratory effort Cardiovascular: Regular rate and rhythm GI: Soft, nontender, nondistended Extremities: No edema Musculoskeletal: Moving all extremities Neuro: No overt focal neurological deficits Skin: No rashes appreciated Psych: Cooperative Assessment & Plan Assessment/Plan (1) TIA (transient ischemic attack): PLAN: Plan 1. Neurologic complaints ? Possible conversion disorder as expressed by the neurologist and discussion with the ED physician ? We will proceed with stroke work-up with [facility] as well as an MRI and echo in the morning ? CT of the brain was negative for any intracranial hemorrhage, she does state that her father in his 40s from a hemorrhagic stroke ? PT/OT -04/28: MRI and echo unremarkable, symptoms completely resolved, TIA versus conversion versus migraine, neurology renotified, appreciate recommendations. Likely discharge if no further work-up needed 2. Anxiety/depression ? Stable ? We will continue with her home medications 3. GERD ? Stable ? Continue with her home medications DVT: Ambulation Charges/Coding Visit Charges Inpatient E&M: 34516 Subs Hosp L1
[2023-04-28 15:13] VITALS: BP 149/63; PULSE 81; RESP 18; TEMP 36.7; O2SAT 95
[2023-04-28 15:24] VITALS: BMI 32.5
--- NOTE | 2023-04-28 17:10 | DS.PCM_ITS ---
Providers Date of Admission: 04/27/23 Date of Discharge: 04/28/23 Primary Care Physician: Dr. Neymar Mayo MD Reason For Visit: Abnormal neurological complaints Diagnosis Discharge Diagnosis (1) Neurologic abnormality: Status: Acute Code(s): R29.818 - Other symptoms and signs involving the nervous system Plan #Neurologic complaints- multiple neurologic complaints, TIA vs migraine vs conversion d/o #Anxiety/depression #GERD Medications at Discharge Home Medications omeprazole 40 mg capsule,delayed release 40 mg PO BID #90 caps 12/19/20 epinephrine 0.3 mg/0.3 mL injection, auto-injector (EpiPen 2-Tahir) 0.3 mg (0.3 mL) IM Q4H PRN anaphylaxis #2 ea 07/28/22 multivitamin 1 tab PO DAILY 09/14/22 ibuprofen 600 mg tablet 600 mg PO Q8H PRN PRN pain #16 TABLETS 09/26/22 paroxetine HCl 40 mg tablet 40 mg PO DAILY #60 tabs 02/10/23 gabapentin 300 mg capsule See Rx Instructions PO .COMPLEX #150 caps 04/21/23 buspirone 15 mg tablet See Rx Instructions .Route .COMPLEX #60 tabs 04/25/23 aspirin 81 mg chewable tablet 81 mg PO BREAKFAST 30 days #30 tabs 04/28/23 atorvastatin 40 mg tablet 40 mg PO QHS #30 tabs 04/28/23 Hospital Course Procedures Transthoracic echo Summary of Care Provided Minutes Spent on Discharge: 35 Hospital Course: Per HPI: FELIX ARITA, is a 48 F who presents to the hospital with a TIA versus CVA versus conversion disorder. She developed some symptoms that were consistent with what could be a TIA versus a stroke with right upper extremity numbness and then she developed right lower extremity weakness then she developed a left-sided headache and then she developed numbness under her right eye, and then she had a dysarthria with facial droop on the neurologist evaluation but not on anyone else's evaluation and then she stated that she had some chest pressure with a normal EKG and normal troponin. She states that all of her symptoms are improving and her chest pressure has resolved but she still has some right upper extremity numbness and right lower extremity weakness. He does not have a history of migraines but states that the symptoms started before the headache. INTERVAL HISTORY: MRI and echocardiogram unremarkable, symptoms completely resolved. Neurology contacted for updated recommendations and they did not feel they needed to see the patient, they recommended statin if indicated based on her lipid profile, an 81 mg aspirin and follow-up with neurology. Discharge instructions as follows: -Please take an 81 mg aspirin daily and due to high cholesterol you will also be discharged on atorvastatin 40 mg which will be sent to your preferred pharmacy on file -Please follow-up with neurology upon discharge, please call Dr. Guevara's office upon discharge to schedule an establish care appointment for your neurological symptoms (ph [phone]) -Please call your primary care provider's office upon discharge to schedule a hospital follow up within 1 week. -For any concerning signs or symptoms please call 911 or proceed to the nearest emergency department Physical Exam Narrative General: Alert, oriented, no apparent distress HEENT: Atraumatic, normocephalic Eyes: Anicteric, normal conjunctiva, extraocular movements grossly intact Neck: Supple Respiratory: Clear to auscultation bilaterally, normal respiratory effort Cardiovascular: Regular rate and rhythm GI: Soft, nontender, nondistended Extremities: No edema Musculoskeletal: Moving all extremities Neuro: No overt focal neurological deficits Skin: No rashes appreciated Psych: Cooperative Weight / BMI Weight Weight: 83.3 kg Body Mass Index (BMI) 32.5 ABG / Lab / Microbiology Data 04/28/23 05:07 04/28/23 05:07 Laboratory: Laboratory Results - last 24 hr 04/28/23 05:07: WBC 11.9 H, RBC 4.45, Hgb 14.2, Hct 43.0, MCV 96.6, MCH 31.9, MCHC 33.0, RDW Std Deviation 46.1 H, RDW Coeff of Sakina 13.0, Plt Count 241, MPV 12.1 H, Immature Gran % (Auto) 0.500, Neut % (Auto) 84.2 H, Lymph % (Auto) 12.6 L, [place] % (Auto) 2.5, Eos % (Auto) 0.0, Baso % (Auto) 0.2, Absolute Neuts (auto) 10.0 H, Absolute Lymphs (auto) 1.50, Nucleated RBC % 0, Sodium 139, Potassium 4.4, Chloride 110 H, Carbon Dioxide 25.0, Anion Gap 4 L, BUN 15, Creatinine 0.77, Estim Creat Clear Calc 75.52, Est GFR (MDRD) Af Amer 104, Est GFR (MDRD) Non-Af 86, BUN/Creatinine Ratio 19.5, Glucose 171 H, Calcium 9.1, Triglycerides 112, Cholesterol 304 H, LDL Cholesterol 230 H, VLDL Cholesterol 22, HDL Cholesterol 52 Radiography Diagnostic Testing: Radiology Impression Head/Neck CTA 04/27/23 15:54 IMPRESSION: Negative CTA carotid and CTA brain. Electronically Signed: Benny Li MD at 17:41 EDT , ADDENDUM: 04/27/23 1750 IMPRESSION: Negative CTA carotid and CTA brain. N.B. : The above Results were Read Back by Benny Li MD to Will Delgadillo MD, and understanding confirmed on 04/27/2023 17:44:58 (ET). Electronically Signed: Benny Li MD at 17:41 EDT , Brain MRI 04/27/23 19:33 IMPRESSION: Normal unenhanced MRI of the brain. Electronically Signed: Dakota Chapman DO at 22:32 EDT , Echocardiogram 04/27/23 19:33 Interpretation Summary The estimated ejection fraction is 70 %. No evidence for diastolic dysfunction. Ordering Physician: Mateo Roca Referring Physician: Neymar Mayo Performed By: Naveen Del Real RCS D/C Instructions Discharge Diet: Low fat / Low cholesterol Meaningful Use Info Meaningful Use Diagnoses (Choose all that apply): None applicable Discharge Plan Admission Admit Date/Time: 04/27/23 18:37 Primary Reason for Your Visit: Neurologic abnormalities Attending Provider: Jeanette Clifton Primary Care Provider: Neymar Mayo Consulting Providers: Mateo Roca Instructions Patient Instructions: Journaling for Mental Health, [place] to Managing Stress Additional Instructions / Restrictions: DISCHARGE INSTRUCTIONS PLEASE READ *Please take this with you to your next doctors appointment* -Please take an 81 mg aspirin daily and due to high cholesterol you will also be discharged on atorvastatin 40 mg which will be sent to your preferred pharmacy on file -Please follow-up with neurology upon discharge, please call Dr. Guevara's office upon discharge to schedule an establish care appointment for your neurological symptoms ) -Please call your primary care provider's office upon discharge to schedule a hospital follow up within 1 week. -For any concerning signs or symptoms please call 911 or proceed to the nearest emergency department Discharge Orders/Prescriptions Prescriptions: New aspirin 81 mg Tablet,Chewable 81 mg PO BREAKFAST 30 Days Qty: 30 0RF atorvastatin 40 mg tablet 40 mg PO QHS Qty: 30 0RF Continued omeprazole 40 mg capsule,delayed release(DR/EC) 40 mg PO BID Qty: 90 1RF multivitamin Tablet 1 tab PO DAILY epinephrine [EpiPen 2-Tahir] 0.3 mg/0.3 mL auto-injector 0.3 mg IM Q4H PRN (Reason: anaphylaxis) Qty: 2 0RF ibuprofen 600 mg tablet 600 mg PO Q8H PRN PRN (Reason: pain) Qty: 16 0RF paroxetine HCl 40 mg tablet 40 mg PO DAILY Qty: 60 1RF gabapentin 300 mg capsule See Rx Instructions PO .COMPLEX Qty: 150 2RF Rx Instructions: 300 mg PO qAM and qPM and 900 mg PO qHS buspirone 15 mg tablet See Rx Instructions .ROUTE .COMPLEX Qty: 60 2RF Dose Instruction: TAKE 1 TABLET BY MOUTH TWICE DAILY Rx Instructions: TAKE 1 TABLET BY MOUTH TWICE DAILY Referrals / Follow Up: Neymar Mayo MD [Primary Care Provider] - Within 1 Week Zhen Guevara MD [Non-Staff -Ordering Privileges] - ( -Please follow-up with neurology upon discharge, please call Dr. Guevara's office upon discharge to schedule an establish care appointment for your recent neurological symptoms (ph [phone])) Disposition Disposition (needs filled in before D/C Order can be placed): Home, Self Care Charges/Coding Visit Charges Inpatient E&M: 39879 Disch Hosp >30min
--- NOTE | 2023-05-03 10:19 | NURSING ---
rn cm phone call made. spoke with patient. patient feels better than entrance to the hospital has no issues complaints or questions strata 3 lace 11
== END 2023-04-28 17:08 | disposition home or self-care (01) ==
LOC: ED 16:23 → PCU 18:52
PROVIDERS: Admitting Provider Family Medicine; Emergency Provider Emergency Medicine; PCP Internal Medicine; Visit Provider Internal Medicine
DX: R29.818 Other symptoms and signs involving the nervous system (principal); I10 Essential (primary) hypertension; F41.9 Anxiety disorder, unspecified; E78.00 Pure hypercholesterolemia, unspecified; R47.01 Aphasia; R51.9 Headache, unspecified; F32.9 Major depressive disorder, single episode, unspecified; M62.81 Muscle weakness (generalized); R47.1 Dysarthria and anarthria; R53.1 Weakness; R20.0 Anesthesia of skin; K21.9 Gastro-esophageal reflux disease without esophagitis; M79.7 Fibromyalgia; K75.81 Nonalcoholic steatohepatitis (NASH); Z79.899 Other long term (current) drug therapy; F17.210 Nicotine dependence, cigarettes, uncomplicated; R29.810 Facial weakness; R07.89 Other chest pain
CPT/HCPCS: 36415; 70450; 70496; 70498; 70551; 71045; 80048; 80061; 82962; 84484; 85025; 85610; 85730; 93005; 93306; 94762; 96374; 96375; 97802; 99221; 99285; 99406; Q9957; Q9967; A4216; C8929; G0378

== ENCOUNTER 2023-05-03 19:37 | Emergency (ER) | payer BC, MEDICAID, SELFPAY ==
[2023-05-03 19:38] VITALS: BP 134/94; PULSE 114; RESP 16; TEMP 36.4; O2SAT 99; BMI 31.8
[2023-05-03] MEDS: 0.9% Normal Saline 1,000 ML 999 ML IV (20:45)
[2023-05-03 21:07] LABS: Absolute Neutrophil Count 6.1 X10^3/uL (2.0-7.7); Basophil% 0.8 % (0-1); Eosinophil# 0.26 X10^3/uL; Eosinophils% 2.1 % (0-5); Hemoglobin 14.1 g/dL (12.0-15.0); Mean Corp Hgb Conc 32.8 g/dL (32-36); Mean Corpuscular Hgb 31.5 pg (27.0-32.0); Mean Platelet Vol. 11.8 fl (6.2-12.0); Monocyte# 0.97 X10^3/uL; NRBC Flagged by Analyzer 0 % (0-5); Neutrophil # 6.05 X10^3/uL (2.7-7.7); Neutrophil % 50.1 % (47-70); Platelet Count 237 K/mm3 (150-450); RBC Distribution Width CV 13.2 % (11.6-14.6); RBC Distribution Width SD 46.9 fl (35.1-43.9); Red Blood Count 4.48 M/mm3 (4.2-5.4); White Blood Count 12.1 K/mm3 (4.4-11.0)
[2023-05-03 21:29] LABS: ALB/GLOB Ratio 1.2 RATIO (0.9-2.4); AST(SGOT) 22 U/L (15-37); Alanine Aminotransfer ALT/SGPT 51 U/L (13-56); Albumin, Serum 3.9 g/dL (3.2-5.0); Alkaline Phosphatase 86 U/L (45-117); Anion Gap 7 (5-15); BUN 13 mg/dL (7-18); BUN/Creat Ratio 13.2 RATIO (10-20); Calcium,Total 9.1 mg/dL (8.5-10.1); Chloride 109 mmol/L (98-107); Creatinine, Serum 0.98 mg/dL (0.55-1.02); EST Glomerular Filtration Rate 65 mL/min (>60); Est Glom Filt Rate - Afr Amer 78 mL/min (>60); Estimated Creatinine Clearance 59.34 ml/min; Globulin 3.2 g/dL (2.2-4.2); Glucose 105 mg/dL (74-106); Potassium 3.7 mmol/L (3.5-5.1); Protein, Total 7.1 g/dL (6.4-8.2); Sodium Level 140 mmol/L (136-145); Troponin-I HS 9 pg/mL (3.0-54.0)
[2023-05-03 22:00] VITALS: RESP 16
--- NOTE | 2023-05-03 22:23 | EDS_ITS ---
HPI History of Present Illness Chief Complaint: Palpitations Narrative Narrative: Patient presents with palpitations. She is complaint says chest pain but patient has minimal chest pain. She was having some slight chest discomfort and noticed that her heart rate at work was 150. This was on her Apple watch. The Apple watch specifically did not say that it was atrial fibrillation and she paid attention to this. She has no back pain or tearing sensation. She is now back to normal. There is no pleuritic component no lower extremity edema or calf pain. [facility] Medical History Anal fissure Anxiety and depression Arthritis Cervical radiculopathy Contact dermatitis Depression Fatty liver Fibromyalgia Gastric reflux GI problem Headache, migraine 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 High cholesterol History of pneumonia History of stress test Hyperlipidemia Hypertension Injury of back Left carpal tunnel syndrome Left shoulder pain Left shoulder tendinitis Liver disease Lupus MDD (major depressive disorder) Menopausal hot flushes POWELL (nonalcoholic steatohepatitis) Oral thrush Panic disorder Physical exam, pre-employment PTSD (post-traumatic stress disorder) Rectal prolapse Restless legs Smoker Vaginal kushal Home Medications omeprazole 40 mg capsule,delayed release 40 mg PO BID #90 caps 12/19/20 [Rx Last Taken Unknown] epinephrine 0.3 mg/0.3 mL injection, auto-injector (EpiPen 2-Tahir) 0.3 mg (0.3 mL) IM Q4H PRN anaphylaxis #2 ea 07/28/22 [Rx Last Taken Unknown] multivitamin 1 tab PO DAILY 09/14/22 [History Last Taken Unknown] ibuprofen 600 mg tablet 600 mg PO Q8H PRN PRN pain #16 TABLETS 09/26/22 [Rx Last Taken Unknown] paroxetine HCl 40 mg tablet 40 mg PO DAILY #60 tabs 02/10/23 [Rx Last Taken Unknown] gabapentin 300 mg capsule See Rx Instructions PO .COMPLEX #150 caps 04/21/23 [Rx Last Taken Unknown] buspirone 15 mg tablet See Rx Instructions .Route .COMPLEX #60 tabs 04/25/23 [Rx Last Taken Unknown] aspirin 81 mg chewable tablet 81 mg PO BREAKFAST 30 days #30 tabs 04/28/23 [Rx Last Taken Unknown] atorvastatin 40 mg tablet 40 mg PO QHS #30 tabs 04/28/23 [Rx Last Taken Unknown] Allergy/AdvReac Type Severity Reaction Status Date / Time shellfish derived Allergy Severe Anaphylaxis Verified 04/27/23 15:26 tree nut Allergy Severe Anaphylaxis Verified 04/27/23 15:26 adhesive Allergy NEEDS Verified 04/27/23 15:26 FOLLOW-UP amoxicillin trihydrate Allergy Hives Verified 04/27/23 15:26 [From Augmentin] Iodinated Contrast Media Allergy Swelling Verified 04/27/23 15:26 [DYEE] nitrofurantoin Allergy Hives Verified 04/27/23 15:26 macrocrystalline [From Macrodantin] phenazopyridine Allergy Hives Verified 04/27/23 15:26 [From Pyridium] potassium clavulanate Allergy Hives Verified 04/27/23 15:26 [From Augmentin] sulfamethoxazole Allergy Hives Verified 04/27/23 15:26 [From Bactrim] trimethoprim [From Bactrim] Allergy Hives Verified 04/27/23 15:26 Family History Father Alcoholism CVA (cerebral vascular accident) Mother Cancer Melanoma Grandfather Cancer Grandmother Cancer Other Arthritis Autoimmune disorder Breast cancer Colon cancer Depression Heart disease Hypertension Liver disease Myocardial infarction Ovarian cancer Psychiatric care Thyroid disorder Uterine cancer ulcer disease Surgical History History of appendectomy History of exploratory laparotomy History of oophorectomy History of tonsillectomy Hx of section Hx of hernia repair Hx of hysterectomy Social History household members: none Smoking Status: Current every day smoker tobacco type: cigarettes alcohol intake: never substance use type: does not use ROS ROS ED ROS Narrative Past medical history: Reviewed, possible past TIA however the MRI was negative Medications: Reviewed Social history: Noncontributory Review of systems: General: No fever Eyes: No visual changes ENT: No upper airway congestion, normal voice Neck: No neck pain Cardiovascular: As in HPI Respiratory: No shortness of breath or cough Gastrointestinal: No abdominal pain, nausea vomiting or diarrhea Genitourinary: No dysuria Musculoskeletal: Denies myalgias no difficulty with ambulation Skin: No rash EXAM Physical Exam Narrative Exam Narrative: Physical exam General: Well nourished, Well developed, No Acute Distress Head: Normocephalic, Atraumatic Eyes: Conjunctiva not pale ENT: Moist mucous membranes Neck: Supple, Nontender, No lymphadenopathy Cardiovascular: Regular rate, Regular rhythm Respiratory: No distress, CTA bilaterally Abdomen: Soft, Nontender, Nondistended Back: Nontender, Normal Inspection. Negative for: CVA tenderness Extremities: Nontender, No edema Skin: Normal color, No rash Neurological: Alert, Normal Strength, Normal Sensation Psychological: Normal affect Const Vital Signs: 05/03/23 19:38 05/03/23 22:00 Temperature 97.5 F L Temperature Source Temporal Pulse Rate 114 H Respiratory Rate 16 16 Blood Pressure 134/94 H Blood Pressure Mean 107 Pulse Ox 99 Oxygen Delivery Method Room Air MDM MDM MDM Narrative Medical decision making narrative: Patient has a normal work-up including troponin. She did have a heart rate of 150 and she felt quite symptomatic per her. Based on what she is telling me Apple Watch is relatively reliable for A-fib and I did not see atrial fibrill ation. She may have had SVT that self resolved. I will follow-up with cardiology. I will place her on a Holter monitor from the emergency department. At this time there is no signs or symptoms of any other arrhythmias or electrolyte abnormalities that could cause this. Lab Data Labs: Laboratory Results - last 24 hr 05/03/23 20:42 WBC 12.1 H RBC 4.48 Hgb 14.1 Hct 43.0 MCV 96.0 MCH 31.5 MCHC 32.8 RDW Std Deviation 46.9 H RDW Coeff of Sakina 13.2 Plt Count 237 MPV 11.8 Immature Gran % (Auto) 1.000 H Neut % (Auto) 50.1 Lymph % (Auto) 38.0 [place] % (Auto) 8.0 Eos % (Auto) 2.1 Baso % (Auto) 0.8 Absolute Neuts (auto) 6.1 Absolute Lymphs (auto) 4.60 H Nucleated RBC % 0 Sodium 140 Potassium 3.7 Chloride 109 H Carbon Dioxide 24.0 Anion Gap 7 BUN 13 Creatinine 0.98 Estim Creat Clear Calc 59.34 Est GFR (MDRD) Af Amer 78 Est GFR (MDRD) Non-Af 65 BUN/Creatinine Ratio 13.2 Glucose 105 Calcium 9.1 Total Bilirubin 0.30 AST 22 ALT 51 Alkaline Phosphatase 86 Troponin I High Sens 9 Total Protein 7.1 Albumin 3.9 Globulin 3.2 Albumin/Globulin Ratio 1.2 EKG Initial EKG: Comments: Sinus rhythm with a rate of 101. Normal SD and QTc intervals. No ischemic changes Discharge Plan Triage Chief Complaint: Palpitations ED Provider: Thai Baca Dx/Rx/DC Orders Clinical Impression: Heart palpitations, Tachycardia Instructions: ED Palpitations Prescriptions: No Action omeprazole 40 mg capsule,delayed release(DR/EC) 40 mg PO BID Qty: 90 1RF multivitamin Tablet 1 tab PO DAILY epinephrine [EpiPen 2-Tahir] 0.3 mg/0.3 mL auto-injector 0.3 mg IM Q4H PRN (Reason: anaphylaxis) Qty: 2 0RF ibuprofen 600 mg tablet 600 mg PO Q8H PRN PRN (Reason: pain) Qty: 16 0RF aspirin 81 mg Tablet,Chewable 81 mg PO BREAKFAST 30 Days Qty: 30 0RF atorvastatin 40 mg tablet 40 mg PO QHS Qty: 30 0RF paroxetine HCl 40 mg tablet 40 mg PO DAILY Qty: 60 1RF gabapentin 300 mg capsule See Rx Instructions PO .COMPLEX Qty: 150 2RF Rx Instructions: 300 mg PO qAM and qPM and 900 mg PO qHS buspirone 15 mg tablet See Rx Instructions .ROUTE .COMPLEX Qty: 60 2RF Dose Instruction: TAKE 1 TABLET BY MOUTH TWICE DAILY Rx Instructions: TAKE 1 TABLET BY MOUTH TWICE DAILY Primary Care Provider: Neymar Mayo Referrals: Angus Estrella MD [Med Staff - Active Staff] - 3-5 Days Neymar Mayo MD [Primary Care Provider] - Disposition Disposition: Home, Self Care
== END 2023-05-03 22:39 | disposition home or self-care (01) ==
PROVIDERS: Emergency Provider Emergency Medicine; PCP Internal Medicine; Visit Provider Emergency Medicine
DX: R00.2 Palpitations (principal); I10 Essential (primary) hypertension; E78.00 Pure hypercholesterolemia, unspecified; K21.9 Gastro-esophageal reflux disease without esophagitis; F41.8 Other specified anxiety disorders; Z79.899 Other long term (current) drug therapy; Z79.82 Long term (current) use of aspirin; Z90.49 Acquired absence of other specified parts of digestive tract; Z90.710 Acquired absence of both cervix and uterus; F17.210 Nicotine dependence, cigarettes, uncomplicated; R00.0 Tachycardia, unspecified
CPT/HCPCS: 99281; 80053; 84484; 85025; 93005; 93225; 93226; 96360; 99282; J7030; A4216

== ENCOUNTER 2023-06-22 16:38 | Emergency (ER) | payer OTHER, SELFPAY ==
[2023-06-22 16:40] VITALS: BP 138/80; PULSE 84; RESP 18; TEMP 35.2; O2SAT 99; BMI 32.4
--- NOTE | 2023-06-22 20:02 | EDS_ITS ---
HPI History of Present Illness Chief Complaint: Back Detail of Chief Complaint: Right lower back pain with numbness of the entire RLE Informant: patient Onset/Context/Timing Onset: Hours Context: Sudden Onset Injury: lifting and twisting Timing: Continuous Quality: Dull, Aching and Throbbing Location: Lumbar, Right Leg and Left Leg Maximum Severity: Severe Worsened by: improves with Movement, Ambulation and Bending Relieved by: Nothing Associated Symptoms Associated Symptoms: Numbness (The entire right lower extremity) and - (Patient denies foot drop. Patient denies problems urinating or loss of bowel control.); Negative for Radiation to Right Leg, Radiation to Left Leg, Fever, Abdominal Pain, Dysuria, Unable to Ambulate, Unable to Transfer, Urinary Retention, Urinary Incontinence, Constipation or Fecal Incontinence Narrative Narrative: Patient is a 48-year-old woman who presents with acute onset of back pain. 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 Patient began the fall. Patient fell onto Kat and she twisted. She felt the pop in her right lower back. She states her right leg became numb. She denies bowel bladder dysfunction. Denies saddle paresthesia. Today is in obvious discomfort. She is concerned because her entire leg is numb. Prior similar symptoms: No Recent Illness/Hospitalization: No PFSH PFS Medical History Anal fissure Anxiety and depression Arthritis Cervical radiculopathy Contact dermatitis Depression Fatty liver Fibromyalgia Gastric reflux GI problem Headache, migraine 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 High cholesterol History of pneumonia History of stress test Hyperlipidemia Hypertension Injury of back Left carpal tunnel syndrome Left shoulder pain Left shoulder tendinitis Liver disease Lupus MDD (major depressive disorder) Menopausal hot flushes POWELL (nonalcoholic steatohepatitis) Oral thrush Panic disorder Physical exam, pre-employment PTSD (post-traumatic stress disorder) Rectal prolapse Restless legs Smoker Vaginal kushal Home Medications omeprazole 40 mg capsule,delayed release 40 mg PO BID #90 caps 12/19/20 [Rx Last Taken Unknown] epinephrine 0.3 mg/0.3 mL injection, auto-injector (EpiPen 2-Tahir) 0.3 mg (0.3 mL) IM Q4H PRN anaphylaxis #2 ea 07/28/22 [Rx Last Taken Unknown] multivitamin 1 tab PO DAILY 09/14/22 [History Last Taken Unknown] ibuprofen 600 mg tablet 600 mg PO Q8H PRN PRN pain #16 TABLETS 09/26/22 [Rx Last Taken Unknown] buspirone 15 mg tablet See Rx Instructions .Route .COMPLEX #60 tabs 04/25/23 [Rx Last Taken Unknown] aspirin 81 mg chewable tablet 81 mg PO BREAKFAST 30 days #30 tabs 04/28/23 [Rx Last Taken Unknown] atorvastatin 40 mg tablet 40 mg PO QHS #30 tabs 04/28/23 [Rx Last Taken Unknown] aripiprazole 5 mg tablet 5 mg PO DAILY #30 tabs 05/23/23 [Rx Last Taken Unknown] gabapentin 300 mg capsule See Rx Instructions PO .COMPLEX #150 caps 05/23/23 [Rx Last Taken Unknown] paroxetine HCl 40 mg tablet 40 mg PO DAILY #60 tabs 05/23/23 [Rx Last Taken Unknown] alprazolam 0.5 mg tablet 0.5 mg PO DAILY PRN anxiety #15 tabs 05/31/23 [Rx Last Taken Unknown] propranolol 10 mg tablet 10 mg PO TID PRN akathisia #90 tabs 05/31/23 [Rx Last Taken Unknown] naproxen 500 mg tablet 500 mg PO BID #14 tabs 06/22/23 [Rx Last Taken Unknown] oxycodone-acetaminophen 5 mg-325 mg tablet 1 tab PO Q6H PRN PRN Pain 3 days #12 TABLETS 06/22/23 [Rx Last Taken Unknown] Allergy/AdvReac Type Severity Reaction Status Date / Time shellfish derived Allergy Severe Anaphylaxis Verified 05/31/23 15:02 tree nut Allergy Severe Anaphylaxis Verified 05/31/23 15:02 adhesive Allergy NEEDS Verified 05/31/23 15:02 FOLLOW-UP amoxicillin trihydrate Allergy Hives Verified 05/31/23 15:02 [From Augmentin] Iodinated Contrast Media Allergy Swelling Verified 05/31/23 15:02 [DYEE] nitrofurantoin Allergy Hives Verified 05/31/23 15:02 macrocrystalline [From Macrodantin] phenazopyridine Allergy Hives Verified 05/31/23 15:02 [From Pyridium] potassium clavulanate Allergy Hives Verified 05/31/23 15:02 [From Augmentin] sulfamethoxazole Allergy Hives Verified 05/31/23 15:02 [From Bactrim] trimethoprim [From Bactrim] Allergy Hives Verified 05/31/23 15:02 Family History Father Alcoholism CVA (cerebral vascular accident) Mother Cancer Melanoma Grandfather Cancer Grandmother Cancer Other Arthritis Autoimmune disorder Breast cancer Colon cancer Depression Heart disease Hypertension Liver disease Myocardial infarction Ovarian cancer Psychiatric care Thyroid disorder Uterine cancer ulcer disease Surgical History History of appendectomy History of exploratory laparotomy History of oophorectomy History of tonsillectomy Hx of section Hx of hernia repair Hx of hysterectomy Social History household members: none Smoking Status: Current every day smoker tobacco type: cigarettes alcohol intake: never substance use type: does not use ROS ROS ED Constitutional Constitutional ED: Denies chills, fever(s), subjective or sweats Cardiovascular Cardiovascular: Denies chest pain, palpitations or racing heartbeat Respiratory/Chest Respiratory/Chest: Denies dyspnea or dyspnea on exertion Gastrointestinal Gastrointestinal: Denies abdominal pain, nausea or vomiting Genitourinary Genitourinary ED: Denies dysuria, hematuria or urinary frequency Musculoskeletal Musculoskeletal: Reports back pain; Denies arthralgias or myalgias Integumentary Denies rash Neurologic Neurologic: Reports paresthesias RLE Psychiatric Psychiatric: Reports anxiety Hematologic/Lymphatic Hematologic/Lymphatic: Denies easy bleeding or easy bruising EXAM Physical Exam Const Vital Signs: 06/22/23 16:40 Temperature 95.3 F L Temperature Source Temporal Pulse Rate 84 Respiratory Rate 18 Blood Pressure 138/80 H Blood Pressure Mean 99 Pulse Ox 99 Oxygen Delivery Method Room Air Positive well nourished, well developed and obese Constitutional Narrative: Obvious discomfort. She grimaces and pants when she moves. General Appearance ED: well developed; Negative for NAD Nutritional Appearance: obese HEENT Reports moist mucous membranes HEENT Narrative: Head is atraumatic and normocephalic. Ears are normal. Posterior pharynx is normal. Eyes PERRL and EOMs intact bilaterally General Eye ED: Negative for pale conjunctiva or scleral icterus Neck no lymphadenopathy, supple and no JVD Resp normal respiratory effort and clear to auscultation bilaterally Cardio regular rate, regular rhythm, S1 normal heart sound, S2 normal heart sound and no murmurs GI normal to inspection, nondistended, normoactive bowel sounds, soft to palpation, non-tender, non-distended and no masses Back/Spine normal to inspection; Negative for no thoracic nor lumbar tenderness Back/Spine Narrative: Chills intact. 5/5 strength with plantar and dorsiflexion of the foot. Altered sensation in the entire right leg. There is no numbness in the dermatomal pattern. Negative clonus. Negative Babinski sign. Cervical Spine: Negative for cervical spine tenderness Thoracic Spine / Upper Back: paraspinal muscle tenderness right Lumbar Spine / Lower Back: ROM limited and straight leg raise negative bilaterally Extremity normal to inspection and no clubbing, cyanosis or edema Extremity Narrative: DP and PT pulse are palpable. Neuro oriented x3 Sensorium / Orientation: alert Motor Exam: strength 5/5 throughout Deep Tendon Reflexes: Rt Patellar (L4): 3+, Lt Patellar (L4): 3+, Rt Ankle (S1): 3+ and Lt Ankle (S1): 3+ Deep Tendon Reflexes Back: Rt Patellar (L4): 3+, Lt Patellar (L4): 3+, Rt Ankle (S1): 3+ and Lt Ankle (S1): 3+ Plantar Reflex: Downgoing: bilateral Psych Mood & Affect: tearful Skin no rashes or lesions noted and no wounds MDM MDM MDM Narrative Medical decision making narrative: Historical standpoint this is muscular pain. Once patient's pain is under better control we will complete the examination. She was medicated with IV Toradol, morphine and Zofran. Treatment and Re-Evaluation Narrative: Back to evaluate patient at 2105 she informs she just received the medication. We will reassess in 30 minutes. Reassessed at 2135. Patient's tingling in the right lower extremity is imp roved. She is able to move more easily. There is 5/5 strength with plantar and dorsiflexion of the foot. She has 5/5 strength with knee extension. She has normal sensation over L3-S1 dermatome. DP and PT pulse are palpable. Patient's pain has decreased significantly. She was given additional dose of morphine and discharged home with appropriate pain medicine. Discharge Plan Triage Chief Complaint: Back ED Provider: Cosmo Richards Dx/Rx/DC Orders Clinical Impression: Paresthesia of right lower extremity, Acute lumbosacral myofascial strain Instructions: ED Back Sprain/Strain Prescriptions: New oxycodone-acetaminophen [oxycodone-acetaminophen] 5-325 mg tablet 1 tab PO Q6H PRN PRN (Reason: Pain) 3 Days Qty: 12 0RF naproxen 500 mg tablet 500 mg PO BID Qty: 14 0RF No Action omeprazole 40 mg capsule,delayed release(DR/EC) 40 mg PO BID Qty: 90 1RF multivitamin Tablet 1 tab PO DAILY aripiprazole 5 mg tablet 5 mg PO DAILY Qty: 30 1RF Rx Instructions: Take 1/2 tablet for 3 days the 1 tablet daily paroxetine HCl 40 mg tablet 40 mg PO DAILY Qty: 60 1RF gabapentin 300 mg capsule See Rx Instructions PO .COMPLEX Qty: 150 2RF Rx Instructions: 300 mg PO qAM and qPM and 900 mg PO qHS propranolol 10 mg tablet 10 mg PO TID PRN (Reason: akathisia) Qty: 90 0RF alprazolam 0.5 mg tablet 0.5 mg PO DAILY PRN (Reason: anxiety) Qty: 15 0RF epinephrine [EpiPen 2-Tahir] 0.3 mg/0.3 mL auto-injector 0.3 mg IM Q4H PRN (Reason: anaphylaxis) Qty: 2 0RF ibuprofen 600 mg tablet 600 mg PO Q8H PRN PRN (Reason: pain) Qty: 16 0RF aspirin 81 mg Tablet,Chewable 81 mg PO BREAKFAST 30 Days Qty: 30 0RF atorvastatin 40 mg tablet 40 mg PO QHS Qty: 30 0RF buspirone 15 mg tablet See Rx Instructions .ROUTE .COMPLEX Qty: 60 2RF Dose Instruction: TAKE 1 TABLET BY MOUTH TWICE DAILY Rx Instructions: TAKE 1 TABLET BY MOUTH TWICE DAILY Stand Alone Forms: ED Work / School Excuse Primary Care Provider: Neymar Mayo Referrals: Neymar Mayo MD [Primary Care Provider] - 1 Week if not improving Activity Restrictions/Additional Instructions: 1. Apply ice 6-10 times a day 2. Avoid activity that causes you increased pain 3. Take medication as prescribed. Disposition Disposition: Home, Self Care
[2023-06-22] MEDS: Morphine 4 MG/ML Syringe IV ×2 (20:49→22:00)
[2023-06-22] MEDS: Ketorolac 15 MG/ML Vial IV (20:49)
[2023-06-22] MEDS: Ondansetron 4 MG/2 ML Vial IV (20:49)
[2023-06-22 22:05] VITALS: BP 108/77; PULSE 62; RESP 15; O2SAT 98
== END 2023-06-22 22:09 | disposition home or self-care (01) ==
PROVIDERS: Emergency Provider Emergency Medicine; PCP Internal Medicine; Visit Provider Emergency Medicine
DX: S39.012A Strain of muscle, fascia and tendon of lower back, initial encounter (principal); I10 Essential (primary) hypertension; E78.00 Pure hypercholesterolemia, unspecified; R20.2 Paresthesia of skin; X58.XXXA Exposure to other specified factors, initial encounter; Y92.89 Other specified places as the place of occurrence of the external cause; K21.9 Gastro-esophageal reflux disease without esophagitis; F41.8 Other specified anxiety disorders; Z79.82 Long term (current) use of aspirin; Z79.899 Other long term (current) drug therapy; Z90.49 Acquired absence of other specified parts of digestive tract; Z90.710 Acquired absence of both cervix and uterus; F17.210 Nicotine dependence, cigarettes, uncomplicated
CPT/HCPCS: 96374; 96375; 96376; 99285; A4216; J2405

== ENCOUNTER → 2023-06-27 | Outpatient (CLI) | payer OTHER, SELFPAY ==
--- NOTE | 2023-06-27 16:45 | RAD_ITS ---
STUDY: X-RAY - LUMBAR SPINE REASON FOR EXAM: Female, 48 years old. lbp TECHNIQUE: 3 view(s) of the lumbar spine were obtained. COMPARISON: 06/23/2020 FINDINGS: Normal lumbar lordosis. There is no substantial scoliosis. There is a normal alignment of the vertebrae. Normal vertebral bodies and endplates. Normal disc space heights. The soft tissue structures are unremarkable. RAD/Lumbar Spine 2 or 3 Views IMPRESSION: Normal x-ray examination of the lumbar spine. Electronically Signed: Lamont Villa MD at 17:05 EDT ,
== END | disposition home or self-care (01) ==
LOC: MTRAD 16:43
PROVIDERS: PCP Internal Medicine; Referring Provider Physician Assistant; Visit Provider Physician Assistant
DX: S39.012A Strain of muscle, fascia and tendon of lower back, initial encounter (principal)
CPT/HCPCS: 72100

== ENCOUNTER 2023-07-29 16:51 | Emergency (ER) | payer MEDICAID, SELFPAY ==
[2023-07-29 16:53] VITALS: BP 129/99; PULSE 120; RESP 22; TEMP 37.2; O2SAT 98; BMI 31.5
--- NOTE | 2023-07-29 17:41 | EKG12_ITS ---
Test Reason : Blood Pressure : / mmHG Vent. Rate : 103 BPM Atrial Rate : 103 BPM P-R Int : 150 ms QRS Dur : 074 ms QT Int : 324 ms P-R-T Axes : 049 063 037 degrees QTc Int : 424 ms Sinus tachycardia Otherwise normal ECG Confirmed by KATHIA MELGAR, GASTON ([id number]), electronic news gathering editor GLORY HERNANDEZ ([id number]) on 08/01/2023 10:47:48 AM Referred By: Confirmed By:GASTON BAE MD
--- NOTE | 2023-07-29 17:42 | EX.ED.DYSGE1 ---
HPI History of Present Illness Chief Complaint: Sore Throat Detail of Chief Complaint: Sore throat, thrush, fever Informant: patient Onset/Context/Timing Onset: Weeks Narrative Narrative: Patient presents with multiple complaints. She reports having thrush for the past 3 weeks. She was initially seen at urgent care and then by her PCP. She has been given nystatin swish and swallow along with Diflucan orally. Patient states that when she swallows she feels like things get stuck in her throat. Last evening she had a fever up to 102. She had mild cough. She states overall she just does not feel well and feels very tired. [facility] Medical History Anal fissure Anxiety and depression Arthritis Cervical radiculopathy Contact dermatitis Depression Fatty liver Fibromyalgia Gastric reflux GI problem Headache, migraine 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 High cholesterol History of pneumonia History of stress test Hyperlipidemia Hypertension Injury of back Left carpal tunnel syndrome Left shoulder pain Left shoulder tendinitis Liver disease Lupus MDD (major depressive disorder) Menopausal hot flushes POWELL (nonalcoholic steatohepatitis) Oral thrush Panic disorder Physical exam, pre-employment PTSD (post-traumatic stress disorder) Rectal prolapse Restless legs Smoker Vaginal kushal Home Medications omeprazole 40 mg capsule,delayed release 40 mg PO BID #90 caps 12/19/20 [Rx Last Taken Unknown] epinephrine 0.3 mg/0.3 mL injection, auto-injector (EpiPen 2-Tahir) 0.3 mg (0.3 mL) IM Q4H PRN anaphylaxis #2 ea 07/28/22 [Rx Last Taken Unknown] multivitamin 1 tab PO DAILY 09/14/22 [History Last Taken Unknown] ibuprofen 600 mg tablet 600 mg PO Q8H PRN PRN pain #16 TABLETS 09/26/22 [Rx Last Taken Unknown] buspirone 15 mg tablet See Rx Instructions .Route .COMPLEX #60 tabs 04/25/23 [Rx Last Taken Unknown] aspirin 81 mg chewable tablet 81 mg PO BREAKFAST 30 days #30 tabs 04/28/23 [Rx Last Taken Unknown] atorvastatin 40 mg tablet 40 mg PO QHS #30 tabs 04/28/23 [Rx Last Taken Unknown] aripiprazole 5 mg tablet 5 mg PO DAILY #30 tabs 05/23/23 [Rx Last Taken Unknown] gabapentin 300 mg capsule See Rx Instructions PO .COMPLEX #150 caps 05/23/23 [Rx Last Taken Unknown] alprazolam 0.5 mg tablet 0.5 mg PO DAILY PRN anxiety #15 tabs 05/31/23 [Rx Last Taken Unknown] naproxen 500 mg tablet 500 mg PO BID #14 tabs 06/22/23 [Rx Last Taken Unknown] oxycodone-acetaminophen 5 mg-325 mg tablet 1 tab PO Q6H PRN PRN Pain 3 days #12 TABLETS 06/22/23 [Rx Last Taken Unknown] azithromycin 250 mg tablet 250 mg PO QDAY #12 tabs 07/04/23 [Rx Last Taken Unknown] benzonatate 200 mg capsule 200 mg PO TID PRN cough #20 caps 07/04/23 [Rx Last Taken Unknown] paroxetine HCl 40 mg tablet 40 mg PO DAILY #60 tabs 07/11/23 [Rx Last Taken Unknown] propranolol 10 mg tablet 10 mg PO TID PRN akathisia #30 tabs 07/13/23 [Rx Last Taken Unknown] doxycycline monohydrate 100 mg capsule 100 mg PO BID #20 CAPSULES 07/29/23 [Rx Last Taken Unknown] ondansetron 4 mg disintegrating tablet 4 mg PO Q8H PRN PRN Nausea #10 tabs 07/29/23 [Rx Last Taken Unknown] Allergy/AdvReac Type Severity Reaction Status Date / Time shellfish derived Allergy Severe Anaphylaxis Verified 07/29/23 16:53 Sulfa (Sulfonamide Allergy Severe Hives Verified 07/29/23 17:19 Antibiotics) tree nut Allergy Severe Anaphylaxis Verified 07/29/23 16:53 adhesive Allergy NEEDS Verified 07/29/23 16:53 FOLLOW-UP amoxicillin trihydrate Allergy Hives Verified 07/29/23 16:53 [From Augmentin] Iodinated Contrast Media Allergy Swelling Verified 07/29/23 16:53 [DYEE] nitrofurantoin Allergy Hives Verified 07/29/23 16:53 macrocrystalline [From Macrodantin] phenazopyridine Allergy Hives Verified 07/29/23 16:53 [From Pyridium] potassium clavulanate Allergy Hives Verified 07/29/23 16:53 [From Augmentin] sulfamethoxazole Allergy Hives Verified 07/29/23 16:53 [From Bactrim] trimethoprim [From Bactrim] Allergy Hives Verified 07/29/23 16:53 Family History Father Alcoholism CVA (cerebral vascular accident) Mother Cancer Melanoma Grandfather Cancer Grandmother Cancer Other Arthritis Autoimmune disorder Breast cancer Colon cancer Depression Heart disease Hypertension Liver disease Myocardial infarction Ovarian cancer Psychiatric care Thyroid disorder Uterine cancer ulcer disease Surgical History History of appendectomy History of exploratory laparotomy History of oophorectomy History of tonsillectomy Hx of section Hx of hernia repair Hx of hysterectomy Social History household members: none Smoking Status: Current every day smoker tobacco type: cigarettes alcohol intake: never substance use type: does not use ROS ROS ED Constitutional Constitutional ED: Reports fever(s); Denies chills Eyes Eyes: Denies change in vision or discharge from eye(s) ENT ENT ED: Reports sore throat; Denies discharge from eye(s) or rhinorrhea Cardiovascular Cardiovascular: Reports chest pain; Denies palpitations Respiratory/Chest Respiratory/Chest: Reports cough; Denies dyspnea Gastrointestinal Gastrointestinal: Reports abdominal pain; Denies diarrhea, nausea or vomiting Genitourinary Genitourinary ED: Denies dysuria Musculoskeletal Musculoskeletal: Reports myalgias; Denies back pain or extremity pain Integumentary Denies Abrasions or rash Neurologic Neurologic: Reports headache(s) and weakness Psychiatric Psychiatric: Denies anxiety or depression Allergic/Immunologic Allergic/Immunologic ED: Denies lip swelling or urticaria EXAM Physical Exam Const Vital Signs: 07/29/23 16:53 07/29/23 18:54 Temperature 99 F 98.5 F Temperature Source Temporal Oral Pulse Rate 120 H 95 Respiratory Rate 22 H 20 H Blood Pressure 129/99 H 111/80 Blood Pressure Mean 109 90 Pulse Ox 98 98 Oxygen Delivery Method Room Air Room Air Positive well nourished and well developed General Appearance ED: well developed HEENT Reports dry mucous membranes HEENT Narrative: Mild white coating to tongue, however not consistent with thrush at the time of my exam. No lesions noted on the buccal surface. Mouth ED: Yes dry mucous membranes Mouth: dry mucous membranes Eyes EOMs intact bilaterally Chest Wall inspection of chest normal and palpation of chest normal Resp normal respiratory effort and clear to auscultation bilaterally Cardio regular rhythm Rate: tachycardic GI non-tender Palpation: soft Extremity normal to inspection Neuro oriented x3 Psych Mood & Affect: anxious Skin Skin Narrative: Small area of erythema measuring approximately 3 to 4 mm in diameter along her scar on her lower abdomen. This appears to be consistent with a small area of folliculitis. 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 Swab for COVID and influenza obtained along with strep. Toradol and IV fluids given. Labwork obtained to evaluate for leukocytosis, anemia, and electrolyte derangement. Chest x-ray will be obtained to evaluate for infiltrate or cardiomegaly and soft tissue neck x-ray will be obtained to evaluate airway narrowing or deviation. History & Record Review Discussion w/independent historian: Patient Additional record(s) reviewed:: Prior inpatient record, Prior outpatient record, Prior ED visit and Prior labs Lab Data Attestation: I reviewed the patient's lab results. Labs: Laboratory Results - last 24 hr 07/29/23 17:53 WBC 12.4 H RBC 4.80 Hgb 15.5 H Hct 46.0 MCV 95.8 MCH 32.3 H MCHC 33.7 RDW Std Deviation 47.2 H RDW Coeff of Sakina 13.2 Plt Count 236 MPV 11.2 Immature Gran % (Auto) 0.400 Neut % (Auto) 58.5 Lymph % (Auto) 30.2 [place] % (Auto) 9.4 Eos % (Auto) 0.9 Baso % (Auto) 0.6 Absolute Neuts (auto) 7.3 Absolute Lymphs (auto) 3.74 Nucleated RBC % 0 Sodium 140 Potassium 3.6 Chloride 110 H Carbon Dioxide 28.0 Anion Gap 2 L BUN 10 Creatinine 0.88 Estim Creat Clear Calc 68.98 Est GFR (MDRD) Af Amer 89 Est GFR (MDRD) Non-Af 74 BUN/Creatinine Ratio 11.4 Glucose 92 Calcium 9.3 Radiography Chest X-Ray - ED: 2 View, Read by ED Physician, Normal, Heart, Lungs, Mediastinum and No Infiltrates Diagnostic Testing: Clinical Impression(s) from Imaging Studies Chest X-Ray 07/29/23 18:05 IMPRESSION: No acute radiographic abnormalities. Electronically Signed: Dhruv Wisdom MD at 20:21 EST , Soft Tissue Neck X-Ray 07/29/23 18:05 IMPRESSION: Negative. Electronically Signed: Dhruv Wisdom MD at 20:35 EST , EKG Initial EKG: Attestation: I personally reviewed and interpreted this EKG as follows: Interpretation: Sinus Tachycardia (Sinus tachycardia at 103. No acute ischemia.) Treatment and Re-Evaluation :: CBC was white count elevated at 12.4 with normal differential. This is consistent with her most recent prior values. Hemoglobin slightly concentrated at 15.5. Chemistry studies unremarkable. Two-view chest x-ray per my interpretation reveals no evidence of focal infiltrate. Radiology interpretation is reviewed and agrees. Soft tissue neck x-ray reveals no obvious airway narrowing or deviation. Radiology interpretation reviewed and agrees. EKG is sinus tachycardia with no evidence of acute ischemia. Swab for COVID and influenza is negative. Swab for strep is negative. On repeat evaluation patient resting more comfortably. Heart rate is now in the 80s. Test results are discussed with her. She does have an area of folliculitis along her prior lower abdominal scar. I will treat her with a course of doxycycline. This will also help treat any sinus congestion symptoms. I did recommend she follow-up with GI for potential scope to ensure she does not have evidence of thrush in her esophagus. Return instructions provided. Discharge Plan Triage Chief Complaint: Sore Throat ED Provider: Charity Curran Dx/Rx/DC Orders Clinical Impression: URI (upper respiratory infection), Folliculitis Instructions: ED Upper Resp Infec Abx Tx, ED Folliculitis Prescriptions: New doxycycline monohydrate 100 mg capsule 100 mg PO BID Qty: 20 0RF ondansetron 4 mg tablet,disintegrating 4 mg PO Q8H PRN PRN (Reason: Nausea) Qty: 10 0RF No Action omeprazole 40 mg capsule,delayed release(DR/EC) 40 mg PO BID Qty: 90 1RF multivitamin Tablet 1 tab PO DAILY aripiprazole 5 mg tablet 5 mg PO DAILY Qty: 30 1RF Rx Instructions: Take 1/2 tablet for 3 days the 1 tablet daily gabapentin 300 mg capsule See Rx Instructions PO .COMPLEX Qty: 150 2RF Rx Instructions: 300 mg PO qAM and qPM and 900 mg PO qHS alprazolam 0.5 mg tablet 0.5 mg PO DAILY PRN (Reason: anxiety) Qty: 15 0RF azithromycin 250 mg tablet 250 mg PO QDAY Qty: 12 0RF Rx Instructions: 2 tablets today, then 1 tablet daily on days 2 through 11 benzonatate 200 mg capsule 200 mg PO TID PRN (Reason: cough) Qty: 20 0RF propranolol 10 mg tablet 10 mg PO TID PRN (Reason: akathisia) Qty: 30 1RF epinephrine [EpiPen 2-Tahir] 0.3 mg/0.3 mL auto-injector 0.3 mg IM Q4H PRN (Reason: anaphylaxis) Qty: 2 0RF ibuprofen 600 mg tablet 600 mg PO Q8H PRN PRN (Reason: pain) Qty: 16 0RF oxycodone-acetaminophen [oxycodone-acetaminophen] 5-325 mg tablet 1 tab PO Q6H PRN PRN (Reason: Pain) 3 Days Qty: 12 0RF naproxen 500 mg tablet 500 mg PO BID Qty: 14 0RF aspirin 81 mg Tablet,Chewable 81 mg PO BREAKFAST 30 Days Qty: 30 0RF atorvastatin 40 mg tablet 40 mg PO QHS Qty: 30 0RF buspirone 15 mg tablet See Rx Instructions .ROUTE .COMPLEX Qty: 60 2RF Dose Instruction: TAKE 1 TABLET BY MOUTH TWICE DAILY Rx Instructions: TAKE 1 TABLET BY MOUTH TWICE DAILY paroxetine HCl 40 mg tablet 40 mg PO DAILY Qty: 60 1RF Primary Care Provider: Neymar Mayo Referrals: Neymar Mayo MD [Primary Care Provider] - 1-2 Weeks Tushar Martino DO [Med Staff - Active Staff] - As Needed Disposition Disposition: Home, Self Care
[2023-07-29 18:02] LABS: Absolute Lymphocyte Count 3.74 X10^3/uL (0.83-4.51); Absolute Neutrophil Count 7.3 X10^3/uL (2.0-7.7); Basophil# 0.07 X10^3/uL; Basophil% 0.6 % (0-1); Eosinophil# 0.11 X10^3/uL; Eosinophils% 0.9 % (0-5); Hemoglobin 15.5 g/dL (12.0-15.0); Lymphocyte # 3.74 X10^3/ul (0.83-4.51); Lymphocyte % 30.2 % (19-41); Mean Corp Hgb Conc 33.7 g/dL (32-36); Mean Corpuscular Hgb 32.3 pg (27.0-32.0); Mean Corpuscular Volume 95.8 fL (81-99); Mean Platelet Vol. 11.2 fl (6.2-12.0); Monocyte# 1.16 X10^3/uL; Monocyte% 9.4 % (0-10); NRBC Flagged by Analyzer 0 % (0-5); Neutrophil # 7.26 X10^3/uL (2.7-7.7); Neutrophil % 58.5 % (47-70); Platelet Count 236 K/mm3 (150-450); RBC Distribution Width CV 13.2 % (11.6-14.6); RBC Distribution Width SD 47.2 fl (35.1-43.9); White Blood Count 12.4 K/mm3 (4.4-11.0)
--- NOTE | 2023-07-29 18:05 | RAD_ITS ---
INDICATION: pain EXAMINATION/TECHNIQUE: X-RAY - XR Neck Soft Tissue COMPARISON: None. FINDINGS: SOFT TISSUES: Unremarkable. No radiopaque foreign body. EPIGLOTTIS: No pathologic thickening or enlargement. PROXIMAL AIRWAY: Grossly patent. RAD/Neck for Soft Tissue IMPRESSION: Negative. Electronically Signed: Dhruv Wisdom MD at 20:35 EST ,
--- NOTE | 2023-07-29 18:05 | RAD_ITS ---
INDICATION: pain EXAMINATION/TECHNIQUE: X-RAY - XR Chest 2 Views COMPARISON: None. FINDINGS: The lungs are clear. The cardiomediastinal silhouette is unremarkable. No pleural effusion or pneumothorax. No acute osseous abnormalities. RAD/Chest PA and Lateral IMPRESSION: No acute radiographic abnormalities. Electronically Signed: Dhruv Wisdom MD at 20:21 EST ,
[2023-07-29] MEDS: 0.9% Normal Saline (1000mL) 1,000 ML 1000 ML IV (18:12)
[2023-07-29] MEDS: Ketorolac 30 MG/ML Syringe IV (18:13)
[2023-07-29 18:17] LABS: Anion Gap 2 (5-15); BUN 10 mg/dL (7-18); BUN/Creat Ratio 11.4 RATIO (10-20); Calcium,Total 9.3 mg/dL (8.5-10.1); Chloride 110 mmol/L (98-107); Creatinine, Serum 0.88 mg/dL (0.55-1.02); EST Glomerular Filtration Rate 74 mL/min (>60); Est Glom Filt Rate - Afr Amer 89 mL/min (>60); Estimated Creatinine Clearance 68.98 ml/min; Glucose 92 mg/dL (74-106); Potassium 3.6 mmol/L (3.5-5.1); Sodium Level 140 mmol/L (136-145)
[2023-07-29 18:54] VITALS: BP 111/80; PULSE 95; RESP 20; TEMP 36.9; O2SAT 98
[2023-07-29] MEDS: 0.9% Normal Saline (1000mL) 1,000 ML 150 ML IV (18:59)
[2023-07-29 19:00] VITALS: BP 116/72; PULSE 78; RESP 16; O2SAT 95
[2023-07-29 20:49] VITALS: BP 114/72; PULSE 77; RESP 16; O2SAT 94
[2023-07-29] MEDS: Doxycycline 100 MG CAPSULE PO (20:55)
== END 2023-07-29 20:57 | disposition home or self-care (01) ==
PROVIDERS: Emergency Provider Emergency Medicine; PCP Internal Medicine; Visit Provider Emergency Medicine
DX: J06.9 Acute upper respiratory infection, unspecified (principal); I10 Essential (primary) hypertension; E78.00 Pure hypercholesterolemia, unspecified; L73.9 Follicular disorder, unspecified; K21.9 Gastro-esophageal reflux disease without esophagitis; Z79.899 Other long term (current) drug therapy; F41.8 Other specified anxiety disorders; Z79.82 Long term (current) use of aspirin; Z90.49 Acquired absence of other specified parts of digestive tract; Z90.710 Acquired absence of both cervix and uterus; F17.210 Nicotine dependence, cigarettes, uncomplicated
CPT/HCPCS: 70360; 71046; 80048; 85025; 87428; 87880; 93005; 99283; J7030

== ENCOUNTER 2023-08-30 06:28 | Emergency (ER) | payer MEDICAID, SELFPAY ==
[2023-08-30 06:29] VITALS: BP 132/90; PULSE 105; RESP 18; TEMP 35.9; O2SAT 99; BMI 32.8
[2023-08-30 06:56] LABS: Absolute Lymphocyte Count 2.64 X10^3/uL (0.83-4.51); Absolute Neutrophil Count 4.5 X10^3/uL (2.0-7.7); Basophil# 0.06 X10^3/uL; Basophil% 0.7 % (0-1); Eosinophil# 0.22 X10^3/uL; Eosinophils% 2.7 % (0-5); Hematocrit 45.8 % (37-47); Lymphocyte # 2.64 X10^3/ul (0.83-4.51); Lymphocyte % 32.4 % (19-41); Mean Corp Hgb Conc 32.8 g/dL (32-36); Mean Corpuscular Hgb 32.2 pg (27.0-32.0); Mean Corpuscular Volume 98.3 fL (81-99); Mean Platelet Vol. 10.8 fl (6.2-12.0); Monocyte% 8.6 % (0-10); NRBC Flagged by Analyzer 0 % (0-5); Neutrophil # 4.51 X10^3/uL (2.7-7.7); Neutrophil % 55.2 % (47-70); Platelet Count 231 K/mm3 (150-450); RBC Distribution Width CV 13.6 % (11.6-14.6); RBC Distribution Width SD 48.9 fl (35.1-43.9); Red Blood Count 4.66 M/mm3 (4.2-5.4); White Blood Count 8.2 K/mm3 (4.4-11.0)
--- NOTE | 2023-08-30 07:10 | CT_ITS ---
STUDY: CT ABDOMEN AND PELVIS WITHOUT CONTRAST REASON FOR EXAM: Female, 48 years old. Rectal bleeding. History of diverticulitis. RADIATION DOSAGE (If Supplied By Facility): CTDIvol = ( 12.45 ) mGy, DLP = ( 581.69 ) mGycm TECHNIQUE: Transaxial images were obtained from the dome of the diaphragm to the symphysis pubis without oral contrast, and without intravenous contrast. Sagittal and coronal images were reconstructed. Individualized dose optimization techniques were used for this CT. COMPARISON: Prior study dated: 03/02/2023 FINDINGS: Evaluation of the abdominal viscera is limited in the absence of intravenous contrast. LOWER THORAX: The visualized lung bases are clear. The visualized portions of the heart and pericardium are within normal limits. GALLBLADDER / BILE DUCTS: There are no calcified gallstones present. The common bile duct is normal in caliber. There are no calcified ductal stones. LIVER: The liver is low in density, consistent with fatty infiltration. SPLEEN: The spleen is normal in size. PANCREAS: The pancreas demonstrates an unremarkable unenhanced appearance. ADRENAL GLANDS: The adrenal glands are within normal limits. KIDNEYS / BLADDER: There are no renal or ureteral stones. There is no hydronephrosis. There are no focal renal lesions identified on this noncontrast exam. The urinary bladder is partially distended and appears grossly unremarkable. STOMACH / BOWEL: Normal visualized stomach. There is no bowel obstruction or inflammation. The patient is status post appendectomy. PERITONEUM / RETROPERITONEUM: There is no abdominal or pelvic free air, free fluid or fluid collection. There is no abnormal soft tissue mass identified. There is no abdominal or pelvic lymphadenopathy. VESSELS: The aorta is normal in caliber. The IVC is unremarkable. BONES: There are no destructive osseous lesions. SOFT TISSUES: The visualized soft tissues are within normal limits. CT/Abdomen/Pelvis without Cont IMPRESSION: No acute abdominal or pelvic pathology. Fatty liver. Electronically Signed: Scott Guan MD at 8:03 EST ,
[2023-08-30 07:11] LABS: Internal QC Validated? YES +Cl - CLEAR BKGD; Pregnancy, Serum, hCG Quali. NEGATIVE Negative
--- NOTE | 2023-08-30 07:12 | ED.VIS.GI ---
HPI HPI - GI History of Present Illness Chief Complaint: GI Bleed Informant: patient Narrative Narrative: Patient woke up at about 3 AM this morning with abdominal cramping in the lower abdomen. She moved her bowels. It was mucousy and then blood. She states she has had large clots. Not lightheaded or dizzy. No fevers or chills. She has had a colonoscopy by Dr. Martino that showed pockets by which I believe she meets diverticula. But she has never had diverticulitis. No vaginal bleeding no urinary symptoms. No other areas of bleeding. She is not on blood thinners. Patient states she has had anal fissures and hemorrhoids but this is totally different. She tells me the surgery she has had are 3 C-sections and appendectomy. I see on her chart she is also had hysterectomy. [facility] Medical History Anal fissure Anxiety and depression Arthritis Cervical radiculopathy Contact dermatitis Depression Fatty liver Fibromyalgia Gastric reflux GI problem Headache, migraine 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 High cholesterol History of pneumonia History of stress test Hyperlipidemia Hypertension Injury of back Left carpal tunnel syndrome Left shoulder pain Left shoulder tendinitis Liver disease Lupus MDD (major depressive disorder) Menopausal hot flushes POWELL (nonalcoholic steatohepatitis) Oral thrush Panic disorder Physical exam, pre-employment PTSD (post-traumatic stress disorder) Rectal prolapse Restless legs Smoker Vaginal kushal Home Medications omeprazole 40 mg capsule,delayed release 40 mg PO BID #90 caps 12/19/20 [Rx Last Taken Unknown] epinephrine 0.3 mg/0.3 mL injection, auto-injector (EpiPen 2-Tahir) 0.3 mg (0.3 mL) IM Q4H PRN anaphylaxis #2 ea 07/28/22 [Rx Last Taken Unknown] ibuprofen 600 mg tablet 600 mg PO Q8H PRN PRN pain #16 TABLETS 09/26/22 [Rx Last Taken Unknown] buspirone 15 mg tablet See Rx Instructions .Route .COMPLEX #60 tabs 04/25/23 [Rx Last Taken Unknown] aripiprazole 5 mg tablet 5 mg PO DAILY #30 tabs 05/23/23 [Rx Last Taken Unknown] gabapentin 300 mg capsule See Rx Instructions PO .COMPLEX #150 caps 05/23/23 [Rx Last Taken Unknown] alprazolam 0.5 mg tablet 0.5 mg PO DAILY PRN anxiety #15 tabs 05/31/23 [Rx Last Taken Unknown] paroxetine HCl 40 mg tablet 40 mg PO DAILY #60 tabs 07/11/23 [Rx Last Taken Unknown] propranolol 10 mg tablet 10 mg PO TID PRN akathisia #30 tabs 07/13/23 [Rx Last Taken Unknown] ondansetron 4 mg disintegrating tablet 4 mg PO Q8H PRN PRN Nausea #10 tabs 07/29/23 [Rx Last Taken Unknown] dicyclomine 10 mg capsule 10 mg PO TID PRN abdominal pain #14 caps 08/30/23 [Rx Last Taken Unknown] Allergy/AdvReac Type Severity Reaction Status Date / Time shellfish derived Allergy Severe Anaphylaxis Verified 08/30/23 06:29 Sulfa (Sulfonamide Allergy Severe Hives Verified 08/30/23 06:29 Antibiotics) tree nut Allergy Severe Anaphylaxis Verified 08/30/23 06:29 adhesive Allergy NEEDS Verified 08/30/23 06:29 FOLLOW-UP amoxicillin trihydrate Allergy Hives Verified 08/30/23 06:29 [From Augmentin] Iodinated Contrast Media Allergy Swelling Verified 08/30/23 06:29 [DYEE] nitrofurantoin Allergy Hives Verified 08/30/23 06:29 macrocrystalline [From Macrodantin] phenazopyridine Allergy Hives Verified 08/30/23 06:29 [From Pyridium] potassium clavulanate Allergy Hives Verified 08/30/23 06:29 [From Augmentin] sulfamethoxazole Allergy Hives Verified 08/30/23 06:29 [From Bactrim] trimethoprim [From Bactrim] Allergy Hives Verified 08/30/23 06:29 Family History Father Alcoholism CVA (cerebral vascular accident) Mother Cancer Melanoma Grandfather Cancer Grandmother Cancer Other Arthritis Autoimmune disorder Breast cancer Colon cancer Depression Heart disease Hypertension Liver disease Myocardial infarction Ovarian cancer Psychiatric care Thyroid disorder Uterine cancer ulcer disease Surgical History History of appendectomy History of exploratory laparotomy History of oophorectomy History of tonsillectomy Hx of section Hx of hernia repair Hx of hysterectomy Social History household members: none Smoking Status: Current every day smoker tobacco type: cigarettes alcohol intake: never substance use type: does not use ROS ROS ED ROS Narrative A complete review of systems was performed and is negative except as documented in the history of present illness. Some specific details below. Constitutional: No recent fevers or chills. EYE: No visual complaints or pain. No change in eye color. ENT: No difficulty swallowing. No swelling. No pain. No GERD symptoms although she does have a history of this. CV: No chest pain or palpitations. Respiratory: No dyspnea. No hemoptysis. No difficulty taking breaths. GI: Please see history of present illness. : No frequency dysuria or hematuria. Musculoskeletal: No recent trauma. No new pains. Skin: No rash. Nondiaphoretic. Neuro: No weakness or numbness. Endocrine: No polyuria or polydipsia. EXAM Physical Exam Narrative Exam Narrative: CONSTITUTIONAL: Patient is nontoxic in appearance. The patient looks comfortable. HEENT: No notable trauma. Mucous membranes moist. No sinus tenderness. No indication of pain with swallowing. EYES: No conjunctival injection. No proptosis. No pallor. CARDIOVASCULAR: Regular rate. Heart rate is about 80 now. Regular rhythm. No notable murmur. No JVD. RESPIRATORY: No respiratory distress. Breathing is unlabored. No wheezes. No rhonchi. No rales. No pain with a deep breath. GASTROINTESTINAL: Not distended. Bowel sounds are normal. Possible minimal lower abdominal tenderness. No guarding. No rebound. No palpable mass. No bruit. GENITOURINARY: No tenderness over the bladder. No CVA tenderness. MUSCULOSKELETAL: Atraumatic. No peripheral edema. No cord. No tenderness along the deep venous system. No asymmetry. NEUROLOGICAL: Patient is alert and appropriate. No focal deficit noted. SKIN: No noted rashes. No diaphoresis. PSYCHIATRIC: Patient is calm. Mood is appropriate. Const Vital Signs: 08/30/23 06:29 08/30/23 08:40 Temperature 96.7 F L Temperature Source Temporal Pulse Rate 105 H 87 Respiratory Rate 18 17 Blood Pressure 132/90 H Blood Pressure Mean 104 Pulse Ox 99 100 Oxygen Delivery Method Room Air MDM MDM MDM Narrative Medical decision making narrative: Rectal exam was done with nurse Alvaro in attendance. She does have some hemorrhoids but they do not look to be inflamed. There is no active bleeding at this time. Ifob was done and will be sent off. Patient CBC is overall normal. Hemoglobin is at or even above her baseline. Platelets are normal white normal. Electrolytes show minimal elevation of creatinine but BUN is at baseline at 11. Glucose is a bit elevated at 173. This needs to be followed as an outpatient as is probably part of metabolic syndrome does not need acute treatment. Liver function test are normal. Serum is negative. Lipase is normal at 30. My independent interpretation of her CT of the abdomen without contrast (this was done without contrast due to her history of significant allergy and I believe she has enough intraperitoneal adipose tissue to still allow good visualization of diverticulitis and most acute issues) shows no acute process. I see no inflammatory changes. Final reading is overall negative. Patient's urinalysis normal. Patient is getting some cramping. But she has had no further blood in about 2 hours and 45 minutes. No bowel movements. This patient is not on blood thinners, has normal vitals, normal CBC and platelets, normal CAT scan. I still think she is appropriate for discharge. She certainly could develop greater bleeding and she may end up requiring admission but hopefully this will resolve and she can follow-up as an outpatient. She will contact Dr. Martino. He is not currently on-call today. Lab Data Attestation: I reviewed the patient's lab results. Labs: Laboratory Results - last 24 hr 08/30/23 08/30/23 06:44 07:27 WBC 8.2 RBC 4.66 Hgb 15.0 Hct 45.8 MCV 98.3 MCH 32.2 H MCHC 32.8 RDW Std Deviation 48.9 H RDW Coeff of Sakina 13.6 Plt Count 231 MPV 10.8 Immature Gran % (Auto) 0.400 Neut % (Auto) 55.2 Lymph % (Auto) 32.4 [place] % (Auto) 8.6 Eos % (Auto) 2.7 Baso % (Auto) 0.7 Absolute Neuts (auto) 4.5 Absolute Lymphs (auto) 2.64 Nucleated RBC % 0 Sodium 140 Potassium 3.8 Chloride 111 H Carbon Dioxide 24.0 Anion Gap 5 BUN 11 Creatinine 1.03 H Estim Creat Clear Calc 56.46 Est GFR (MDRD) Af Amer 74 Est GFR (MDRD) Non-Af 61 BUN/Creatinine Ratio 10.7 Glucose 173 H Calcium 9.3 Total Bilirubin 0.50 AST 19 ALT 42 Alkaline Phosphatase 80 Total Protein 6.9 Albumin 3.7 Globulin 3.2 Albumin/Globulin Ratio 1.2 Lipase 30 Serum , Qual NEGATIVE Urine Color Yellow Urine Clarity Clear Urine pH 6.0 Ur Specific [place] 1.015 Urine Protein Negative Urine Glucose (UA) Normal Urine Ketones Negative Urine Occult Blood Negative Urine Nitrite Negative Urine Bilirubin Negative Urine Urobilinogen Normal Ur Leukocyte Esterase Negative Urine RBC 0 SEEN Urine WBC 0 SEEN Ur Squamous Epith Cells 0 SEEN Urine Bacteria 0 SEEN Urine Mucus 0 SEEN Radiography Diagnostic Testing: Clinical Impression(s) from Imaging Studies Abdomen/Pelvis CT 08/30/23 07:10 IMPRESSION: No acute abdominal or pelvic pathology. Fatty liver. Electronically Signed: Scott Guan MD at 8:03 EST Reading Location ID and State: [facility] / [place] Tel , Service support , Discharge Plan Triage Chief Complaint: GI Bleed ED Provider: Aquilino Ruiz Dx/Rx/DC Orders Clinical Impression: Bright red rectal bleeding, Abdominal cramping Instructions: ED Lower GI Bleeding (Stable) Prescriptions: New dicyclomine 10 mg capsule 10 mg PO TID PRN (Reason: abdominal pain) Qty: 14 0RF No Action omeprazole 40 mg capsule,delayed release(DR/EC) 40 mg PO BID Qty: 90 1RF aripiprazole 5 mg tablet 5 mg PO DAILY Qty: 30 1RF Rx Instructions: Take 1/2 tablet for 3 days the 1 tablet daily gabapentin 300 mg capsule See Rx Instructions PO .COMPLEX Qty: 150 2RF Rx Instructions: 300 mg PO qAM and qPM and 900 mg PO qHS alprazolam 0.5 mg tablet 0.5 mg PO DAILY PRN (Reason: anxiety) Qty: 15 0RF propranolol 10 mg tablet 10 mg PO TID PRN (Reason: akathisia) Qty: 30 1RF epinephrine [EpiPen 2-Tahir] 0.3 mg/0.3 mL auto-injector 0.3 mg IM Q4H PRN (Reason: anaphylaxis) Qty: 2 0RF ibuprofen 600 mg tablet 600 mg PO Q8H PRN PRN (Reason: pain) Qty: 16 0RF ondansetron 4 mg tablet,disintegrating 4 mg PO Q8H PRN PRN (Reason: Nausea) Qty: 10 0RF buspirone 15 mg tablet See Rx Instructions .ROUTE .COMPLEX Qty: 60 2RF Dose Instruction: TAKE 1 TABLET BY MOUTH TWICE DAILY Rx Instructions: TAKE 1 TABLET BY MOUTH TWICE DAILY paroxetine HCl 40 mg tablet 40 mg PO DAILY Qty: 60 1RF Stand Alone Forms: ED Work / School Excuse Primary Care Provider: Neymar Mayo Referrals: Neymar Mayo MD [Primary Care Provider] - As Needed Friend,DO Tushar [Med Staff - Active Staff] - As soon as possible Disposition Disposition: Home, Self Care
[2023-08-30] MEDS: Morphine 4 MG/ML Syringe IV (07:19)
[2023-08-30] MEDS: Ondansetron 4 MG/2 ML Vial IV (07:19)
[2023-08-30 07:22] LABS: ALB/GLOB Ratio 1.2 RATIO (0.9-2.4); AST(SGOT) 19 U/L (15-37); Alanine Aminotransfer ALT/SGPT 42 U/L (13-56); Albumin, Serum 3.7 g/dL (3.2-5.0); Alkaline Phosphatase 80 U/L (45-117); Anion Gap 5 (5-15); BUN 11 mg/dL (7-18); BUN/Creat Ratio 10.7 RATIO (10-20); Calcium,Total 9.3 mg/dL (8.5-10.1); Chloride 111 mmol/L (98-107); Creatinine, Serum 1.03 mg/dL (0.55-1.02); EST Glomerular Filtration Rate 61 mL/min (>60); Est Glom Filt Rate - Afr Amer 74 mL/min (>60); Estimated Creatinine Clearance 56.46 ml/min; Globulin 3.2 g/dL (2.2-4.2); Glucose 173 mg/dL (74-106); Potassium 3.8 mmol/L (3.5-5.1); Protein, Total 6.9 g/dL (6.4-8.2); Sodium Level 140 mmol/L (136-145)
[2023-08-30 07:31] LABS: Lipase 30 U/L (13-75)
[2023-08-30 07:35] LABS: Bacteria 0 SEEN /hpf (None Seen); Mucous, Urine 0 SEEN /hpf (<or=2+); Red Blood Cells-Urine 0 SEEN /hpf (0-5); Squamous Epithelial Cells - UA 0 SEEN /hpf (5-10); White Blood Cells 0 SEEN /hpf (0-5)
[2023-08-30 07:37] LABS: Color, Urine Yellow (Yellow); Glucose, Dipstick Normal (Normal); Ketone-Dipstick Negative (Negative); Leukocyte Esterase-Dipstick Negative /ul (Negative); Nitrite-Dipstick Negative (Negative); Occult Blood-Urine Negative /ul (Negative); Protein-Dipstick Negative (Negative); Specific Gravity, Urine 1.015 (1.002-1.030); Urine Bilirubin Dipstick Negative (Negative); Urine Clarity Clear (Clear); Urine Urobilinogen Normal (Normal)
--- OUTSIDE RECORDS SUMMARY | 2023-08-30 07:38 | XMS RPT_ITS | CCD ---
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 Name Role Phone STAOLIVIA, SURESH JEREMIAH Unavailable Unavailab le TOURLAS, GAUTAM Unavailable Unavailabl e STADNICK, SURESH JEREMIAH Unavailable Unavailab le TOURLAS, GAUTAM Unavailable Unavailabl e TOURLAS, GAUTAM Unavailable Unavailabl e MICHELLE BARKLEY Unavailable Unavailable TOURLAS, GAUTAM Unavailable Unavailabl e STADNICK, SURESH JEREMIAH Unavailable Unavailab le TOURLAS, GAUTAM Unavailable Unavailabl e Stadnick, Suresh S Unavailable Unavailable Stadnick, Suresh S Unavailable Unavailable Tourlas, Gautam Unavailable Unavailabl e Jenaro French Unavailable Unavailable Jenaro French Unavailable Unavailable Chuck Long Unavailable Unavailable Tourlas, Gautam Unavailable Unavailabl e Janessa Prater Unavailable Unavailable [facility] Unavailable Unavailable Ivanauskas, Saulius Unavailable Unavailable Ivanauskas, Saulius Unavailable Unavailable [facility] Unavailable Unavailable Jentes Evangelist P Unavailable Unavailable Jentes Evangelist P Unavailable Unavailable [facility] Unavailable Unavailable Tourlas, Gautam Unavailable Unavailabl e [facility] Unavailable Unavailable [facility] Unavailable Unavailable Vamsi, Andrés Unavailable Unavailable Vamsi, Andrés Unavailable Unavailable Vamsi, Andrés Unavailable Unavailable Vamsi, Andrés Unavailable Unavailable Tourlas, Gautam Unavailable Unavailabl Chuck Ibarra Unavailable Unavailable Tourlas, Gautam Unavailable Unavailabl Chuck Ibarra Unavailable Unavailable Chuck Long Unavailable Unavailable Chuck Long Unavailable Unavailable Tourlas, Gautam Unavailable Unavailabl e Chuck Long R Unavailable Unavailable Tourlas, Gautam Unavailable Unavailabl e Tourlas, Gautam Unavailable Unavailabl e Giovanni, Alan W Unavailable Unavailable [place], Alan W Unavailable Unavailable Tourlas, Gautam Unavailable Unavailabl e Ivanauskas, Saulius Unavailable Unavailable Ivanauskas, Saulius Unavailable Unavailable Tourlas, Gautam Unavailable Unavailabl e Tourlas, Gautam Unavailable Unavailabl e Tourlas, Gautam Unavailable Unavailabl e Tourlas, Gautam Unavailable Unavailabl e Tourlas, Gautam Unavailable Unavailabl e Tourlas, Gautam Unavailable Unavailabl e Tourlas, Gautam Unavailable Unavailabl e Tourlas, Gautam Unavailable Unavailabl e Tourlas, Gautam Unavailable Unavailabl e Tourlas, Gautam Unavailable Unavailabl e Tourlas, Gautam Unavailable Unavailabl e Tourlas, Gautam Unavailable Unavailabl e French, Jenaro Unavailable Unavailable French, Jenaro Unavailable Unavailable Tourlas, Gautam Unavailable Unavailabl e Tourlas, Gautam Unavailable Unavailabl e Tourlas, Gautam Unavailable Unavailabl e Tourlas, Gautam Unavailable Unavailabl e Rings, Varun Unavailable Unavailable Rings, Varun Unavailable Unavailable Tourlas, Gautam Unavailable Unavailabl e Tourlas, Gautam Unavailable Unavailabl e Tourlas, Gautam Unavailable Unavailabl e Tourlas, Gautam Unavailable Unavailabl e Tourlas, Gautam Unavailable Unavailabl e Tourlas, Gautam Unavailable Unavailabl e Tourlas, Gautam Unavailable Unavailabl e Tourlas, Gautam Unavailable Unavailabl e Tourlas, Gautam Unavailable Unavailabl e Tourlas, Gautam Unavailable Unavailabl e Tourlas, Gautam Unavailable Unavailabl e Tourlas, Gautam Unavailable Unavailabl e Tourlas, Gautam Unavailable Unavailabl e Sokari, Telemate Unavailable Unavailable Sokari, Telemate Unavailable Unavailable Janessa Prater Unavailable Unavailable Tourlas, Gautam Unavailable Unavailabl e Moi, Janessa L Unavailable Unavailable Tourlas, Gautam Unavailable Unavailabl e Tourlas, Gautam Unavailable Unavailabl e Furness, Anselmo T Unavailable Unavailable Tourlas, Gautam Unavailable Unavailabl e BRUNO, NORA T Unavailable Unavailable BRUNO, NORA T Unavailable Unavailable Furness, Anselmo T Unavailable Unavailable Chiki Coelho Unavailable Unavailable OLEGHE, EFEWONGBE B Primary Care Unavailable JANAY CLAROS Attending Unava ilable OLEGHE, EFEWONGBE B Primary Care Unavailable SARAH ROA Attending Unavailable OLEGHE, EFEWONGBE B Primary Care Unavailable WILL LUZ Attending Unavailable OLEGHE, EFEWONGBE B Primary Care Unavailable BJORN MARIE Attending Unavailable OLEGHE, EFEWONGBE B Primary Care Unavailable JANAY CLAROS Attending Unava ilable OLEGHE, EFEWONGBE B Primary Care Unavailable OLEGHE, EFEWONGBE B Primary Care Unavailable SHELIA YANES Attending Unavailable OLEGHE, EFEWONGBE B Primary Care Unavailable SHELIA YANES Referring Unavailable Allergies Allergy Classification Reported Allergen(s) Allergy Type Date of Onset Reaction(s) Facility (4 sources) cetirizine; Translations: [CETIRIZINE] Drug Allergy [facility] Repository (3 sources) ibuprofen; Translations: [IBUPROFEN] Drug Allergy 12-04-19 [facility] Repository (4 sources) iodine; Translations: [IODINE] Drug Allergy 12-04-19 [facility] Repository (2 sources) NSAIDs; Translations: [NSAIDS (NON-STEROIDAL ANTI-INFLAMMATORY DRUG)] Propensity to adverse reactions to drug (disorder) 12-04-19 [facility] Repository (4 sources) phenazopyridine; Translations: [PHENAZOPYRIDINE] Drug Allergy [facility] Repository (4 sources) pseudoephedrine; Translations: [PSEUDOEPHEDRINE HCL] Drug Allergy [facility] Repository (4 sources) sulfamethoxazole / trimethoprim; Translations: [SULFAMETHOXAZOLE-TR IMETHOPRIM] Drug Allergy 12-04-19 [facility] Repository (2 sources) IODINATED CONTRAST- ORAL AND IV DYE; Translations: [IODINATED CONTRAST- ORAL AND IV DYE] Propensity to adverse reactions to drug (disorder) 02-25-20 [facility] Repository (1 source) cetirizine; Translations: [ZyrTEC] [facility] Contrast media; Translations: [Contrast Dye] Propensity to adverse reactions to drug (disorder) [facility] Repository (1 source) phenazopyridine; Translations: [Pyridium] [facility]) pseudoephedrine; Translations: [Sudafed] [facility] source) sulfamethoxazole / trimethoprim; Translations: [Bactrim] Drug Allergy [facility] Repository (3 sources) Phenazopyridine; Translations: [PHENAZOPYRIDINE HCL] Drug Allergy 03-21-20 07 [facility] Repository (3 sources) AMOXICILLIN-POT CLAVULANATE; Translations: [AMOXICILLIN-POT CLAVULANATE] Propensity to adverse reactions to drug (disorder) 07-19-20 05 [facility] Repository (3 sources) NITROFURANTOIN MACROCRYSTALLINE; Translations: [NITROFURANTOIN MACROCRYSTALLINE] Propensity to adverse reactions to drug (disorder) 07-19-20 05 [facility] Repository (3 sources) OTHER; Translations: [OTHER] Propensity to adverse reactions (disorder) 06-14-20 06 [facility] Repository (1 source) Contrast media allergy to substance QM-Ffjntpn-Xg stake SJW DO Work Phone: (1 source) Ibuprofen Drug Allergy XC-Kvizqzy-Hh stake SJW DO Work Phone: (1 source) Phenazopyridine Drug Allergy LB-Gvkahul-Y e stake SJW DO Work Phone: (1 source) Sulfamethoxazole / Trimethoprim Drug Allergy YK-Kovthzv-On stake SJW DO Work Phone: (2 sources) gabapentin; Translations: [GABAPENTIN] Drug Allergy 10-14-19 [facility] Repository (2 sources) Shellfish; Translations: [SHELLFISH DERIVED] Propensity to adverse reactions to drug (disorder) 03-01-20 [facility] Repository (2 sources) tree nut, unspecified; Translations: [TREE NUTS] Propensity to adverse reactions to drug (disorder) 08-27-20 [facility] Repository (2 sources) IODINATED CONTRAST MEDIA; Translations: [IODINATED CONTRAST MEDIA] Propensity to adverse reactions to drug (disorder) 02-25-20 [facility] Repository Medications Completed/Discontinued Medications Medication Drug Class(es) Dates Sig (Normalized) Sig (Original) Percocet TABS (1 source) Opioid Agonist Percocet TABS Refills: 0 Active amoxicillin 500 mg oral capsule (1 source) Penicillin-class Antibacterial Amoxicillin 500 MG Oral Capsule Refills: 0 Active clonazePAM 1 mg oral tablet (1 source) Benzodiazepine Start: 06-26-2016 clonazePAM 1 MG Oral Tablet Quantity: 30 Refills: 0 Start : 26-Jun-2016 Active sertraline 100 mg oral tablet (2 sources) Serotonin Reuptake Inhibitor Start: 08-12-2016 Sertraline HCl - 100 MG Oral Tablet Quantity: 30 Refills: 0 Start : 12-Aug-2016 Active Problems Active Problems Problem Classification Problem Date Documented Da te Episodic/Chronic Disorders of teeth and jaw (1 source) Periapical abscess without sinus; Translations: [Dental abscess] Onset: 01-23-2023 Episodic Mood disorders (1 source) Depressive disorder; Translations: [Depression] Chronic Other gastrointestinal disorders (1 source) Constipation, unspecified; Translations: [Constipation, unspecified] Onset: 08-03-2018 Episodic Other liver diseases (1 source) Fatty (change of) liver, not elsewhere classified; Translations: [Fatty liver] Onset: 08-27-2022 Chronic Other screening for suspected conditions (not mental disorders or infectious disease) (1 source) Encounter for screening mammogram for malignant neoplasm of breast; Translations: [Encounter for screening mammogram for malignant neoplasm of breast] Onset: 08-17-2023 Episodic Systemic lupus erythematosus and connective tissue disorders (2 sources) Systemic lupus erythematosus, unspecified; Translations: [Systemic lupus erythematosus, unspecified] Onset: 02-24-2017 Chronic Unclassified (1 source) L knee pain Onset: 01-01-2023 Viral infection (1 source) COVID-19; Translations: [COVID] Onset: 03-01-2022 Past or Other Problems Problem Classification Problem Date Documented Da te Episodic/Chronic Abdominal pain (5 sources) Unspecified abdominal pain; Translations: [Pain in female pelvis] Onset: 08-03-2018 Episodic Genitourinary symptoms and ill-defined conditions (1 source) Dysuria; Translations: [Dysuria] Episodic Malaise and fatigue (1 source) Weakness; Translations: [General weakness] Onset: 03-01-2022 Episodic Medical examination/evaluation (2 sources) Encounter for general adult medical examination without abnormal findings; Translations: [Encounter for general adult medical examination without abnormal findings] Onset: 02-24-2017 Episodic Nonspecific chest pain (1 source) Chest pain, unspecified; Translations: [Chest pain, unspecified type] Onset: 03-01-2022 Episodic Other connective tissue disease (1 source) H/O: back problem; Translations: [History of low back pain] Episodic Other nutritional; endocrine; and metabolic disorders (1 source) History of hypercholesterolemi a; Translations: [History of hypercholesterolemi a] Episodic Residual codes; unclassified (1 source) Localized edema; Translations: [Bilateral lower extremity edema] Onset: 08-27-2022 Episodic Spondylosis; intervertebral disc disorders; other back problems (1 source) Lumbar radiculopathy; Translations: [Right lumbar radiculopathy] Episodic Results Test Name Value Interpretation Reference Range Facil ity Encounters Encounter Date Encounter Type Care Provider Facility Start: 08-17-2023 End: 08-17-2023 ambulatory [facility] Facility:[facility] Start: 01-23-2023 End: 01-23-2023 Emergency department patient visit [facility] Facility:[facility] Start: 01-01-2023 Emergency department patient visit [facility] Facility:[facility] Start: 10-14-2022 End: 10-15-2022 Emergency department patient visit [facility] Facility:[facility] Start: 08-27-2022 End: 08-28-2022 Emergency department patient visit [facility] Facility:[facility] Start: 03-28-2022 End: 03-28-2022 Emergency department patient visit [facility] Facility:[facility] Start: 03-01-2022 End: 03-01-2022 Emergency department patient visit JORGECASSIA ALVARADO Facility:[facility] Start: 08-09-2018 End: 08-09-2018 Patient encounter procedure NORA Mcclure [facility] Start: 02-07-2018 End: 02-07-2018 Patient encounter Anselmo Marks Facility:[facility] Start: 01-10-2018 End: 01-10-2018 Patient encounter Gautam Tourlas Facility:[facility] Start: 12-19-2017 End: 12-20-2017 Patient encounter Janessa Prater Facility:[facility] Start: 11-08-2017 End: 11-09-2017 Emergency department patient visit Gautam Tourlas Facility:[facility] Start: 11-04-2017 End: 11-04-2017 Patient encounter Gautam Tourlas Facility:[facility] Start: 10-21-2017 End: 10-21-2017 Patient encounter Gautam Tourlas Facility:[facility] Start: 10-13-2017 End: 10-14-2017 Patient encounter Gautam Tourlas Facility:[facility] Start: 10-04-2017 End: 10-04-2017 Patient encounter Gautam Tourlas Facility:[facility] Start: 09-24-2017 End: 09-24-2017 Patient encounter Chuck Long Facility:[facility] Start: 09-13-2017 End: 09-14-2017 Patient encounter Gautam Tourlas Facility:[facility] Start: 09-08-2017 End: 09-09-2017 Patient encounter Gautam Tourlas Facility:[facility] Start: 09-06-2017 End: 09-06-2017 Emergency department patient visit Gautam Tourlas Facility:[facility] Start: 09-06-2017 End: 09-06-2017 Patient encounter Gautam Tourlas Facility:[facility] Start: 08-31-2017 End: 08-31-2017 Emergency department patient visit Gautam Tourlas Facility:[facility] Start: 08-16-2017 End: 08-16-2017 Patient encounter Gautam Tourlas Facility:[facility] Start: 08-10-2017 End: 08-11-2017 Patient encounter Gautam Tourlas Facility:[facility] Start: 08-10-2017 End: 08-11-2017 Patient encounter Gautam Mcmullen Facility:[facility] Start: 08-03-2017 End: 08-03-2017 Emergency department patient visit Gautam Mcmullen Facility:[facility] Start: 07-05-2017 End: 07-05-2017 Emergency department patient visit Gautam Mcmullen Facility:[facility] Start: 06-27-2017 End: 06-28-2017 Patient encounter Chuck Long Facility:[facility] Start: 06-23-2017 End: 06-24-2017 Patient encounter Evangelist Dunlap Facility:[facility] Start: 06-20-2017 End: 06-21-2017 Patient encounter Andrés Agustin Facility:[facility] Start: 06-18-2017 End: 06-19-2017 Emergency department patient [facility] Facility:[facility] Start: 05-21-2017 End: 05-21-2017 Emergency department patient visit Nelson Raul Facility:[facility] Start: 05-19-2017 End: 05-19-2017 Patient encounter Janessa Prater Facility:[facility] Start: 04-07-2017 End: 04-07-2017 Patient encounter Chuck Long Facility:[facility] Start: 03-28-2017 End: 03-28-2017 [facility] Start: 03-02-2017 Ambulatory SURESH [place] [facility] Start: 02-25-2017 Ambulatory MICHELLE FILIPPO [facility] Start: 02-24-2017 End: 02-24-2017 Ambulatory SURESH [place] [facility] Start: 02-24-2017 [facility] Start: 02-24-2017 End: 02-24-2017 Ambulatory [facility] Procedures Date Procedure Procedure Detail Performing Clinician section Anselmo Fur ness Hernia repair Anselmo Furnes s Hysterectomy Anselmo Furness Tonsillectomy Anselmodavid Ragland s Payers Date Payer Category Payer Medicaid [id number] 2021 Unknown [id number] 2017 Unknown 2016 Medicaid [id number] Social History Date Type Detail Facility NEGATED: Highlighted row - - [facility]W DO Work Phone: Functional Status Date Assessment Result Facility NEGATED: Highlighted row Functional performance Functional status health issues are not documented Disease [facility] SJW DO Work Phone: Mental Status Date Assessment Result Facility NEGATED: Highlighted row Cognitive function [Interpretation] Cognitive status health issues are not documented Disease LG-[facility] SJW DO Work Phone: Progress note 08-17-2023 Note Date & Type Note Facility 08-17-2023 Note HNO ID: [id number] Author: Shelia Yanes MD Service: ? Author Type: Physician Type: Progress Notes Filed: 08/17/2023 10:25 AM Note Text: Kat is a 48 year old who presents for an annual gynecologic exam with complaints, states I am a mess . Notes c/s scar hurts inside and out. Started 2 months ago and getting worse. Hot flashes and vaginal dryness Menses: n/a s/p hysterectomy. 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 Comments: Sexual Activity: Yes; Male; hysterectomy Contraception: Tubal Ligation, Surgical PAST MEDICAL HISTORY Diagnosis Date Acne Vulgaris: Grade IV Nodulocystic--scarring 08/28/2009 Adjustment disorder with depressed mood Allergic rhinitis, cause unspecified 03/02/2006 Depressive disorder Fibromyalgia Myalgia and myositis, unspecified POWELL (nonalcoholic steatohepatitis) 12/27/2019 Other and unspecified hyperlipidemia 2004 Other chronic cystitis 09/20/2005 Palpitations 07/19/2005 Shingles 01/26/2020 Systemic lupus erythematosus (HCC) Thyroid nodule Thyroiditis, unspecified 2000 had PP thyroiditis / hyperthyroidism, treated with radioactive iodine, was on Synthroid for a while, but recent TSH's are normal off of meds Tobacco abuse PAST SURGICAL HISTORY Procedure Laterality Date ADENOIDECTOMY PRIMARY Adenoidectomy APPENDECTOMY 06/19/2018 lysis of adhesions and appendectomy [facility] BIOPSY OF BREAST 09/09/2010 U/S Core biopsy left breast DELIVERY ONLY , low cervical DELIVERY ONLY , low cervical DELIVERY ONLY , low cervical SECTION HX COLONOSCOPY 2014 COLONOSCOPY FLX DX W/COLLJ SPEC WHEN PFRMD 01/08/16 Colonoscopy (MAC) COLONOSCOPY FLX DX W/COLLJ SPEC WHEN PFRMD 08/09/2018 Colonoscopy, normal biopsies DANDC DIAG AND/OR THERAP, NOT OB 2012 w/ ablation ESOPHAGOGASTRODUODENOSCOPY TRANSORAL DIAGNOSTIC 01/08/16 EGD (MAC) ESOPHAGOGASTRODUODENOSCOPY TRANSORAL DIAGNOSTIC 08/09/2018 EGD HYSTERECTOMY HX 2014 Dr Harris- both ovaries remain LAPAROSCOPY W/RMVL ADNEXAL STRUCTURES left LSO< extensive adhesions, may have left some ovarian tissue on colon/sidewall LIG/TRNSXJ FLP TUBE ABDL/VAG APPR UNI/BI Tubal ligation RPR UMBILICAL HRNA 5 YRS/> REDUCIBLE 2007 TONSILLECTOMY PRIMARY/SECONDARY Tonsillectomy FAMILY HISTORY Problem Relation Age of Onset Heart Mother Cancer Mother skin Coronary Artery Disease Mother Psychiatry Mother Hypertension Father Stroke Father Alcohol/Drug Father Cancer Maternal Grandmother lung / brain Breast Cancer Maternal Grandmother Colon Cancer Maternal Grandfather Heart Paternal Grandfather other (MULTIPLE SCLEROSIS) Maternal Aunt Breast Cancer Other MGM AND MGGM - in their 40's Colon Cancer Other MGF - in his 60's SOCIAL HISTORY Social History Tobacco Use Smoking status: Every Day Packs/day: 0.50 Years: 17.00 Additional pack years: 0.00 Total pack years: 8.50 Types: Cigarettes Smokeless tobacco: Never Tobacco comments: less than 1/2 pack/day Vaping Use Vaping Use: Never used Substance Use Topics Alcohol use: No Drug use: No REVIEW OF SYSTEMS Abdomen: No abdominal pain, nausea, vomiting, diarrhea, or constipation. No bloating, early satiety, indigestion, or increased flatulence. Bladder: No dysuria, gross hematuria, urinary frequency, urinary urgency, or incontinence. Breast: No breast lumps, nipple d/c, overlying skin changes, redness or skin retraction. Allergies and current medication updated:Yes EXAM: BP 136/82 Ht 5' 4 (1.63m) Wt 184 lb (83.5kg) LMP 04/07/2012 BMI 31.57 kg/(m2). GENERAL: pleasant, female in no apparent distress HEENT: Normocephalic, atraumatic, mucus membranes moist, and no lesions NECK: Supple, full range of motion, no adenopathy, and thyroid normal DERMATOLOGY: Normal, without lesions, non-icteric, and non-hirsute BREAST: soft, non-tender, symmetric, no dominant mass, normal nipple-areolar complex, no lymphadenopathy, and no nipple discharge CHEST: Normal inspiratory effort ABDOMEN: soft, no hernia, no masses, rebound Absent, guarding Present, and pannus moderate, tender diffusely lower abdomen PELVIC: external genitalia normal, normal Bartholin's glands, urethra, Weldona's glands, no vulvar lesions, good vaginal support, physiologic discharge present, normal appearing perineal body and perianal region, cervix surgically absent, pain at cuff and over levators BIMANUAL: no adnexal masses, uterus surgically absent, and diffuse tenderness RECTOVAGINAL: deferred. NEURO: alert and oriented x3,exam grossly (more content not included)... [facility] Progress note 08-17-2023 Note Date & Type Note Facility 08-17-2023 Note HNO ID: [id number] Author: Samantha Gilman Mammo Tech Service: ? Author Type: Computer Technical Support Specialist Type: Progress Notes Filed: 08/17/2023 9:33 AM Note Text: Radiology Service Progress Note PATIENT NAME: Kat Roman DATE OF SERVICE: August 17, 2023 TIME: 9:09 AM PATIENT IDENTITY VERIFICATION COMPLETED USING TWO (2) IDENTIFIERS: Name and Date of confirmed by patient verbally. FALL SCREENING: Has the patient had 2 falls in the last year or 1 fall with injury or currently using an Ambulatory Assistive Device (Walker, Cane, Wheelchair, Crutches, etc.)? No PATIENT GENDER DATA: Female. status: : No status: NO. PATIENT RELEVANT IMPLANT DATA REVIEWED: Not Applicable RADIOLOGY DEPARTMENT: Mammography PERIPHERAL IV DATA: Not applicable SIGNED BY: Hannah Velazco Tech August 17, 2023 9:09 AM [facility] Summary Purpose Family History No Family History Records Found Mother Name Dates Details Family history of cardiac di sorder(V17.49, Z82.49) Status:Active Father Name Dates Details Family history of Status:Active Family history of hypertensi on(V17.49, Z82.49) Status:Active Family history of cerebrovas cular accident (CVA)(V17.1, Z82.3) Status:Active Advance Directives No Advanced Directives Records FoundNo Advanced Directives Records FoundNo Advanced Directives Records FoundNo Advanced Directives Records FoundNo Advanced Directives Records FoundNo Advanced Directives Records FoundNo Advanced Directives Records FoundNo Advanced Directives Records FoundNo Advanced Directives Records Found Additional Source Comments INFORMATION SOURCE (unrecogn ized section and content) DATE CREATED AUTHOR AUTHOR'S ORGANIZ ATION 02/22/2018 [facility] DATE CREATED AUTHOR AUTHOR'S ORGANIZ ATION 02/22/2018 [facility] DATE CREATED AUTHOR AUTHOR'S ORGANIZ ATION 03/27/2018 [facility] DATE CREATED AUTHOR AUTHOR'S ORGANIZ ATION 08/12/2018 [facility] DATE CREATED AUTHOR AUTHOR'S ORGANIZ ATION 08/20/2020 [facility] DATE CREATED AUTHOR AUTHOR'S ORGANIZ ATION 11/11/2020 [facility] DATE CREATED AUTHOR AUTHOR'S ORGANIZ ATION 02/27/2023 [facility] DATE CREATED AUTHOR AUTHOR'S ORGANIZ ATION 08/24/2023 [facility] FOR RECORDS PERTAINING TO PATIENTS WHO ARE OR HAVE BEEN ENROLLED IN A CHEMICAL DEPENDENCY/SUBSTANCEABUSE PROGRAM, SOME INFORMATION MAY BE OMITTED. This clinical summary was aggregated from multiple sources. Caution should be exercised in using it in the provision of clinical care. This summary normalizes information from multiple sources, and as a consequence, information in this document may materially change the coding, format and clinical context of patient data. In addition, data may be omitted in some cases. CLINICAL DECISIONS SHOULD BE BASED ON THE PRIMARY CLINICAL RECORDS. [facility] Primary Data [facility]. provides no warranty or guarantee of the accuracy or completeness of information in this document.
[2023-08-30 08:40] VITALS: PULSE 87; RESP 17; O2SAT 100
[2023-08-30] MEDS: Dicyclomine 20 MG/2 ML Vial IM (09:30)
== END 2023-08-30 09:49 | disposition home or self-care (01) ==
PROVIDERS: Emergency Provider Emergency Medicine; PCP Internal Medicine; Visit Provider Emergency Medicine
DX: R10.9 Unspecified abdominal pain (principal); K64.9 Unspecified hemorrhoids; Z90.49 Acquired absence of other specified parts of digestive tract; Z90.710 Acquired absence of both cervix and uterus; E78.00 Pure hypercholesterolemia, unspecified; I10 Essential (primary) hypertension; K21.9 Gastro-esophageal reflux disease without esophagitis; F41.8 Other specified anxiety disorders; Z79.899 Other long term (current) drug therapy; F17.210 Nicotine dependence, cigarettes, uncomplicated; K62.5 Hemorrhage of anus and rectum
CPT/HCPCS: 74176; 80053; 81001; 82274; 83690; 84703; 85025; 96372; 96374; 96375; 99283; A4216; J2405

== ENCOUNTER 2023-12-26 13:22 | Emergency (ER) | payer MEDICAID, SELFPAY ==
[2023-12-26 13:23] VITALS: BP 162/116; BP 177/105; PULSE 110; PULSE 118; RESP 18; RESP 20; TEMP 37.2; O2SAT 97; BMI 32.4
--- NOTE | 2023-12-26 13:37 | EX.ED.DYSGE1 ---
HPI History of Present Illness Chief Complaint: Headache Detail of Chief Complaint: Headache and not feeling well Narrative Narrative: Patient presents to the emergency department with complaint of a headache and not feeling well. She states that she has had slight rash for the last 3 days on her anterior chest. Last night she had a fever up to 102.3. She denies cough or sore throat. She denies urinary symptoms. Patient has history of a TIA last year. No history of migraines. She does complain a little bit of photophobia and nausea. Complains of pain to the right side of her head only in her right jaw. She has some discomfort in her right arm. Denies sick contacts. Denies cough. Denies abdominal pain. Patient has history of hypertension and high cholesterol as well as history of Rowan. Patient states that her father had a stroke in his 40s. She is concerned she may be having a stroke. She is also telling me that she had an episode last year where they thought she may be having a stroke when she was admitted to the hospital but the MRI did not show any abnormalities [facility] Medical History Anal fissure Anxiety and depression Arthritis Cervical radiculopathy Contact dermatitis Depression Fatty liver Fibromyalgia Gastric reflux GI problem Headache, migraine 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 High cholesterol History of pneumonia History of stress test Hyperlipidemia Hypertension Impingement of left shoulder Injury of back Left carpal tunnel syndrome Left shoulder pain Left shoulder tendinitis Left tennis elbow Liver disease Lupus MDD (major depressive disorder) Menopausal hot flushes ROWAN (nonalcoholic steatohepatitis) Oral thrush Panic disorder Physical exam, pre-employment PTSD (post-traumatic stress disorder) Rectal prolapse Restless legs Smoker Vaginal kushal Home Medications omeprazole 40 mg capsule,delayed release 40 mg PO BID #90 caps 12/19/20 [Rx Last Taken Unknown] epinephrine 0.3 mg/0.3 mL injection, auto-injector (EpiPen 2-Tahir) 0.3 mg (0.3 mL) IM Q4H PRN anaphylaxis #2 ea 07/28/22 [Rx Last Taken Unknown] ibuprofen 600 mg tablet 600 mg PO Q8H PRN PRN pain #16 TABLETS 09/26/22 [Rx Last Taken Unknown] propranolol 10 mg tablet 10 mg PO TID PRN akathisia #30 tabs 07/13/23 [Rx Last Taken Unknown] ondansetron 4 mg disintegrating tablet 4 mg PO Q8H PRN PRN Nausea #10 tabs 07/29/23 [Rx Last Taken Unknown] dicyclomine 10 mg capsule 10 mg PO TID PRN abdominal pain #14 caps 08/30/23 [Rx Last Taken Unknown] meloxicam 7.5 mg tablet 7.5 mg PO DAILY pain #30 tabs 09/20/23 [Rx Last Taken Unknown] prednisone 5 mg tablets in a dose pack See Rx Instructions PO PER PKG DIR pain #21 tabs 09/20/23 [Rx Last Taken Unknown] paroxetine HCl 30 mg tablet 30 mg PO DAILY 30 days #30 tabs 11/02/23 [Rx Last Taken Unknown] alprazolam 0.5 mg tablet 0.5 mg PO DAILY PRN anxiety #15 tabs 12/21/23 [Rx Last Taken Unknown] buspirone 15 mg tablet See Rx Instructions .Route .COMPLEX #60 tabs 12/21/23 [Rx Last Taken Unknown] gabapentin 300 mg capsule See Rx Instructions PO .COMPLEX #150 caps 12/21/23 [Rx Last Taken Unknown] prazosin 1 mg capsule 1 mg PO QHS #30 caps 12/21/23 [Rx Last Taken Unknown] Allergy/AdvReac Type Severity Reaction Status Date / Time shellfish derived Allergy Severe Anaphylaxis Verified 12/26/23 13:23 Sulfa (Sulfonamide Allergy Severe Hives Verified 12/26/23 13:23 Antibiotics) tree nut Allergy Severe Anaphylaxis Verified 12/26/23 13:23 adhesive Allergy NEEDS Verified 12/26/23 13:23 FOLLOW-UP amoxicillin trihydrate Allergy Hives Verified 12/26/23 13:23 [From Augmentin] Iodinated Contrast Media Allergy Swelling Verified 12/26/23 13:23 [DYEE] nitrofurantoin Allergy Hives Verified 12/26/23 13:23 macrocrystalline [From Macrodantin] phenazopyridine Allergy Hives Verified 12/26/23 13:23 [From Pyridium] potassium clavulanate Allergy Hives Verified 12/26/23 13:23 [From Augmentin] sulfamethoxazole Allergy Hives Verified 12/26/23 13:23 [From Bactrim] trimethoprim [From Bactrim] Allergy Hives Verified 12/26/23 13:23 Family History Father Alcoholism CVA (cerebral vascular accident) Mother Cancer Melanoma Grandfather Cancer Grandmother Cancer Other Arthritis Autoimmune disorder Breast cancer Colon cancer Depression Heart disease Hypertension Liver disease Myocardial infarction Ovarian cancer Psychiatric care Thyroid disorder Uterine cancer ulcer disease Surgical History History of appendectomy History of exploratory laparotomy History of oophorectomy History of tonsillectomy Hx of section Hx of hernia repair Hx of hysterectomy Social History household members: none Smoking Status: Current every day smoker tobacco type: cigarettes alcohol intake: never substance use type: does not use ROS ROS ED Review of Systems ROS Unobtainable: other Constitutional Constitutional ED: Reports fever(s) and lethargy; Denies chills, sweats or weight loss Eyes Eyes: Denies blurry vision, change in vision or diplopia ENT ENT ED: Denies rhinorrhea or sore throat Cardiovascular Cardiovascular: Denies chest pain, orthopnea or racing heartbeat Respiratory/Chest Respiratory/Chest: Denies cough, dyspnea, dyspnea on exertion, orthopnea or sputum Gastrointestinal Gastrointestinal: Denies abdominal pain, diarrhea, nausea or vomiting Genitourinary Genitourinary ED: Denies dysuria, hematuria or urinary frequency Musculoskeletal Musculoskeletal: Denies arthralgias, back pain, myalgias or neck pain Integumentary Denies abscess, Abrasions or rash Neurologic Neurologic: Reports headache(s); Denies weakness Psychiatric Psychiatric: Denies anxiety, depression or suicidal thoughts Endocrine Endocrinology: Denies polydipsia, polyphagia or polyuria Hematologic/Lymphatic Hematologic/Lymphatic: Denies easy bleeding, easy bruising or lymphadenopathy Allergic/Immunologic Allergic/Immunologic ED: Denies mouth swelling, tongue swelling or urticaria EXAM Physical Exam Const Vital Signs: 12/26/23 13:23 12/26/23 13:23 12/26/23 14:30 Temperature 99 F Temperature Source Temporal Pulse Rate 118 H 110 H 76 Respiratory Rate 20 H 18 16 Blood Pressure 177/105 H 162/116 H 138/87 H Blood Pressure Mean 129 131 104 Pulse Ox 97 97 91 Oxygen Delivery Method Room Air Room Air Room Air Positive well nourished and well developed General Appearance ED: well developed and NAD HEENT Reports TM's clear and moist mucous membranes normocephalic and atraumatic; Negative for trauma or tenderness Tympanic Membrane ED: Yes TM's clear Eyes PERRL and EOMs intact bilaterally General Eye ED: Negative for pale conjunctiva or scleral icterus Neck no lymphadenopathy, supple and no JVD General: Negative for tenderness Chest Wall inspection of chest normal and palpation of chest normal Chest: Negative for tenderness Resp normal respiratory effort and clear to auscultation bilaterally Effort and Inspection: Negative for respiratory distress or pain with movement Auscultation: Negative for rhonchi, wheezes or diminished lung sounds Cardio regular rate, regular rhythm, S1 normal heart sound, S2 normal heart sound and no murmurs Peripheral Pulses: pulses 2+ throughout GI normal to inspection, nondistended, normoactive bowel sounds, soft to palpation, non-tender, non-distended and no masses Back/Spine no CVA tenderness and no thoracic nor lumbar tenderness Extremity normal to inspection General Extremety ED: Negative for edema General Extremity: Negative for edema Neuro oriented x3, CN's II-XII intact bilaterally, no sensory deficits noted and gait normal Sensorium / Orientation: awake, alert, oriented to person, oriented to place and oriented to time Motor Exam: strength 5/5 throughout and strength abnormal Psych mental status grossly normal Skin no rashes or lesions noted and no wounds MDM MDM MDM Narrative Medical decision making narrative: Patient presents the emergency department with multiple complaints of rash x 3 days and headache that started today and fever up to 102 last evening. Clinically she looks well and is nontoxic-appearing. IV line established. She was medicated with Reglan, Benadryl, and Toradol and had good improvement in her headache with that. CBC with differential recommend 10.2 with hemoglobin 15 and platelet count of 225. Chemistries unremarkable. Urinalysis was normal. COVID flu and RSV testing was negative. This point we will discharge to home. I suspect possibly a viral syndrome. Also given the complaint of the headache with nausea and some photophobia suspect possibility of a migraine. Fever however not explained with this. Patient advised to follow-up with her primary care physician within next 3 to 5 days. She is to return if worsening headache, or condition worsening with Lab Data Attestation: I reviewed the patient's lab results. Labs: Laboratory Results - last 24 hr 12/26/23 12/26/23 13:45 14:10 WBC 10.2 RBC 4.85 Hgb 15.0 Hct 44.9 MCV 92.6 MCH 30.9 MCHC 33.4 RDW Std Deviation 43.5 RDW Coeff of Sakina 12.7 Plt Count 225 MPV 12.2 H Immature Gran % (Auto) 0.400 Neut % (Auto) 74.8 H Lymph % (Auto) 20.8 Cassia % (Auto) 3.7 Eos % (Auto) 0.0 Baso % (Auto) 0.3 Absolute Neuts (auto) 7.7 Absolute Lymphs (auto) 2.13 Nucleated RBC % 0 Sodium 140 Potassium 4.0 Chloride 108 H Carbon Dioxide 26.0 Anion Gap 6 BUN 6 L Creatinine 0.76 Estim Creat Clear Calc 94.38 Est GFR (MDRD) Af Amer 104 Est GFR (MDRD) Non-Af 86 BUN/Creatinine Ratio 7.8 L Glucose 106 Calcium 9.7 Urine Color Yellow Urine Clarity Clear Urine pH 7.0 Ur Specific Fay 1.010 Urine Protein Negative Urine Glucose (UA) Normal Urine Ketones Negative Urine Occult Blood Negative Urine Nitrite Negative Urine Bilirubin Negative Urine Urobilinogen Normal Ur Leukocyte Esterase Negative Urine RBC 0 SEEN Urine WBC 0-5 SEEN Ur Squamous Epith Cells 0-5 SEEN Urine Bacteria 0 SEEN Urine Mucus 0 SEEN Discharge Plan Triage Chief Complaint: Headache ED Provider: Robin Alex Dx/Rx/DC Orders Clinical Impression: Acute viral syndrome, Rash, Headache, migraine Instructions: ED, Migraine (Classical), ED Viral Syndrome (Adult), ED Viral Exanthem Rash (Adult) Prescriptions: No Action omeprazole 40 mg capsule,delayed release(DR/EC) 40 mg PO BID Qty: 90 1RF propranolol 10 mg tablet 10 mg PO TID PRN (Reason: akathisia) Qty: 30 1RF paroxetine HCl 30 mg tablet 30 mg PO DAILY 30 Days Qty: 30 2RF meloxicam 7.5 mg tablet 7.5 mg PO DAILY MDD 2 Qty: 30 0RF prednisone 5 mg tablets,dose pack See Rx Instructions PO PER PKG DIR Qty: 21 0RF Rx Instructions: PO PER PKG DIR gabapentin 300 mg capsule See Rx Instructions PO .COMPLEX Qty: 150 2RF Rx Instructions: 300 mg PO qAM and qPM and 900 mg PO qHS buspirone 15 mg tablet See Rx Instructions .ROUTE .COMPLEX Qty: 60 2RF Dose Instruction: TAKE 1 TABLET BY MOUTH TWICE DAILY Rx Instructions: TAKE 1 TABLET BY MOUTH TWICE DAILY prazosin 1 mg capsule 1 mg PO QHS Qty: 30 2RF alprazolam 0.5 mg tablet 0.5 mg PO DAILY PRN (Reason: anxiety) Qty: 15 0RF epinephrine [EpiPen 2-Tahir] 0.3 mg/0.3 mL auto-injector 0.3 mg IM Q4H PRN (Reason: anaphylaxis) Qty: 2 0RF ibuprofen 600 mg tablet 600 mg PO Q8H PRN PRN (Reason: pain) Qty: 16 0RF dicyclomine 10 mg capsule 10 mg PO TID PRN (Reason: abdominal pain) Qty: 14 0RF ondansetron 4 mg tablet,disintegrating 4 mg PO Q8H PRN PRN (Reason: Nausea) Qty: 10 0RF Primary Care Provider: Neymar Mayo Referrals: Neymar Mayo MD [Primary Care Provider] - 3-5 Days Disposition Disposition: Home, Self Care
[2023-12-26] MEDS: Metoclopramide 10 MG/2 ML Vial IV (13:51)
[2023-12-26] MEDS: DiphenhydrAMINE 50 MG/ML Syringe 25 MG IV (13:51)
[2023-12-26] MEDS: Ketorolac 30 MG/ML Syringe IV (13:51)
[2023-12-26] MEDS: 0.9% Normal Saline (1000mL) 1,000 ML 1000 ML IV (13:51)
[2023-12-26 14:02] LABS: Absolute Lymphocyte Count 2.13 X10^3/uL (0.83-4.51); Absolute Neutrophil Count 7.7 X10^3/uL (2.0-7.7); Basophil# 0.03 X10^3/uL; Basophil% 0.3 % (0-1); Hematocrit 44.9 % (37-47); Lymphocyte # 2.13 X10^3/ul (0.83-4.51); Lymphocyte % 20.8 % (19-41); Mean Corp Hgb Conc 33.4 g/dL (32-36); Mean Corpuscular Hgb 30.9 pg (27.0-32.0); Mean Corpuscular Volume 92.6 fL (81-99); Mean Platelet Vol. 12.2 fl (6.2-12.0); Monocyte# 0.38 X10^3/uL; Monocyte% 3.7 % (0-10); NRBC Flagged by Analyzer 0 % (0-5); Neutrophil # 7.66 X10^3/uL (2.7-7.7); Neutrophil % 74.8 % (47-70); Platelet Count 225 K/mm3 (150-450); RBC Distribution Width CV 12.7 % (11.6-14.6); RBC Distribution Width SD 43.5 fl (35.1-43.9); Red Blood Count 4.85 M/mm3 (4.2-5.4); White Blood Count 10.2 K/mm3 (4.4-11.0)
[2023-12-26 14:13] LABS: Anion Gap 6 (5-15); BUN 6 mg/dL (7-18); BUN/Creat Ratio 7.8 RATIO (10-20); Calcium,Total 9.7 mg/dL (8.5-10.1); Chloride 108 mmol/L (98-107); Creatinine, Serum 0.76 mg/dL (0.55-1.02); EST Glomerular Filtration Rate 86 mL/min (>60); Est Glom Filt Rate - Afr Amer 104 mL/min (>60); Estimated Creatinine Clearance 94.38 ml/min; Glucose 106 mg/dL (74-106); Sodium Level 140 mmol/L (136-145)
[2023-12-26 14:16] LABS: Bacteria 0 SEEN /hpf (None Seen); Mucous, Urine 0 SEEN /hpf (<or=2+); Red Blood Cells-Urine 0 SEEN /hpf (0-5)
[2023-12-26 14:19] LABS: Color, Urine Yellow (Yellow); Glucose, Dipstick Normal (Normal); Ketone-Dipstick Negative (Negative); Leukocyte Esterase-Dipstick Negative /ul (Negative); Nitrite-Dipstick Negative (Negative); Occult Blood-Urine Negative /ul (Negative); Protein-Dipstick Negative (Negative); Urine Bilirubin Dipstick Negative (Negative); Urine Clarity Clear (Clear); Urine Urobilinogen Normal (Normal)
[2023-12-26 14:30] VITALS: BP 138/87; PULSE 76; RESP 16; O2SAT 91
[2023-12-26 14:30] LABS: Squamous Epithelial Cells - UA 0-5 SEEN /hpf (5-10); White Blood Cells 0-5 SEEN /hpf (0-5)
[2023-12-26 15:20] VITALS: BP 145/88; PULSE 88; RESP 16; TEMP 36.1; O2SAT 97
== END 2023-12-26 15:24 | disposition home or self-care (01) ==
PROVIDERS: Emergency Provider Emergency Medicine; PCP Internal Medicine; Visit Provider Emergency Medicine
DX: B34.9 Viral infection, unspecified (principal); R21 Rash and other nonspecific skin eruption; G43.909 Migraine, unspecified, not intractable, without status migrainosus; I10 Essential (primary) hypertension; R50.9 Fever, unspecified; Z86.73 Personal history of transient ischemic attack (TIA), and cerebral infarction without residual deficits; E78.00 Pure hypercholesterolemia, unspecified; K21.9 Gastro-esophageal reflux disease without esophagitis; Z79.899 Other long term (current) drug therapy; M19.90 Unspecified osteoarthritis, unspecified site; F41.8 Other specified anxiety disorders; F43.10 Post-traumatic stress disorder, unspecified; Z90.49 Acquired absence of other specified parts of digestive tract; Z90.710 Acquired absence of both cervix and uterus; F17.210 Nicotine dependence, cigarettes, uncomplicated
CPT/HCPCS: 80048; 81001; 85025; 87631; 96361; 96374; 96375; 99283; J7030; A4216

== ENCOUNTER 2024-02-04 17:09 | Emergency (ER) | payer MEDICAID, SELFPAY ==
[2024-02-04 17:09] VITALS: BP 136/88; PULSE 94; RESP 14; TEMP 35.9; O2SAT 99; BMI 33.3
--- NOTE | 2024-02-04 17:22 | ED.VIS.CHEST ---
HPI History of Present Illness Chief Complaint: Palpitations Detail of Chief Complaint: Palpitations and chest pain Informant: patient Narrative Narrative: Patient presents to the emergency department with complaint of racing heart that started while she was at work today. Patient sat down and looked at her watch and noted her heart rate was 140. She states that she had her blood pressure checked and it was in the normal range. She started having some chest discomfort. Initially this all started feeling like her heart was pounding. She was not doing any strenuous activity at the time. She denies recent travel or surgery. She does have history of anxiety but this does not feel like anxiety to her. No prior history of PE or DVT. Patient describes some tightness in her chest. She has family history with significant heart disease and that her mom started having stents and heart trouble in her late 30s. Patient has history of cholesterol and history of TIA as well as POWELL and history of lupus. [facility] Medical History (Updated 02/04/24 @ 18:[address] Robin Alex, DO) Blurred vision, right eye Allergic dermatitis Impingement of left shoulder PTSD (post-traumatic stress disorder) Left carpal tunnel syndrome MDD (major depressive disorder) Panic disorder Left tennis elbow Physical exam, pre-employment 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 Menopausal hot flushes Hyperlipidemia Anxiety and depression Rectal prolapse Anal fissure History of stress test Vaginal kushal Oral thrush Left shoulder pain Left shoulder tendinitis Cervical radiculopathy Contact dermatitis Depression Fatty liver High cholesterol Injury of back Restless legs Gastric reflux Smoker POWELL (nonalcoholic steatohepatitis) Hypertension Fibromyalgia History of pneumonia Lupus Liver disease Headache, migraine GI problem Arthritis Home Medications ?Medication ?Instructions ?Recorded ?Last Taken ?Type omeprazole 40 mg capsule,delayed 40 mg PO BID #90 caps 12/19/20 Unknown Rx release epinephrine 0.3 mg/0.3 mL 0.3 mg (0.3 mL) IM Q4H PRN 07/28/22 Unknown Rx injection, auto-injector (EpiPen anaphylaxis #2 ea 2-Tahir) ibuprofen 600 mg tablet 600 mg PO Q8H PRN PRN pain #16 09/26/22 Unknown Rx TABLETS propranolol 10 mg tablet 10 mg PO TID PRN akathisia #30 tabs 07/13/23 Unknown Rx ondansetron 4 mg disintegrating 4 mg PO Q8H PRN PRN Nausea #10 tabs 07/29/23 Unknown Rx tablet dicyclomine 10 mg capsule 10 mg PO TID PRN abdominal pain 08/30/23 Unknown Rx #14 caps meloxicam 7.5 mg tablet 7.5 mg PO DAILY pain #30 tabs 09/20/23 Unknown Rx prednisone 5 mg tablets in a dose See Rx Instructions PO PER PKG DIR 09/20/23 Unknown Rx pack pain #21 tabs paroxetine HCl 30 mg tablet 30 mg PO DAILY 30 days #30 tabs 11/02/23 Unknown Rx buspirone 15 mg tablet See Rx Instructions .Route 12/21/23 Unknown Rx .COMPLEX #60 tabs gabapentin 300 mg capsule See Rx Instructions PO .COMPLEX 12/21/23 Unknown Rx #150 caps prazosin 1 mg capsule 1 mg PO QHS #30 caps 12/21/23 Unknown Rx alprazolam 0.5 mg tablet 0.5 mg PO DAILY PRN anxiety #15 01/18/24 Unknown Rx tabs Allergy/AdvReac Type Severity Reaction Status Date / Time shellfish derived Allergy Severe Anaphylaxis Verified 01/31/24 12:05 Sulfa (Sulfonamide Allergy Severe Hives Verified 01/31/24 12:05 Antibiotics) tree nut Allergy Severe Anaphylaxis Verified 01/31/24 12:05 adhesive Allergy NEEDS Verified 01/31/24 12:05 FOLLOW-UP amoxicillin trihydrate (From Allergy Hives Verified 01/31/24 12:05 Augmentin) Iodinated Contrast Media Allergy Swelling Verified 01/31/24 12:05 (DYEE) nitrofurantoin Allergy Hives Verified 01/31/24 12:05 macrocrystalline (From Macrodantin) phenazopyridine (From Allergy Hives Verified 01/31/24 12:05 Pyridium) potassium clavulanate (From Allergy Hives Verified 01/31/24 12:05 Augmentin) sulfamethoxazole (From Allergy Hives Verified 01/31/24 12:05 Bactrim) trimethoprim (From Bactrim) Allergy Hives Verified 01/31/24 12:05 Family History Father Alcoholism CVA (cerebral vascular accident) Mother Cancer Melanoma Grandfather Cancer Grandmother Cancer Other Arthritis Autoimmune disorder Breast cancer Colon cancer Depression Heart disease Hypertension Liver disease Myocardial infarction Ovarian cancer Psychiatric care Thyroid disorder Uterine cancer ulcer disease Surgical History History of appendectomy History of oophorectomy History of exploratory laparotomy History of tonsillectomy Hx of hysterectomy Hx of hernia repair Hx of section Social History household members: none Smoking Status: Current every day smoker tobacco type: cigarettes alcohol intake: never substance use type: does not use ROS ROS ED Review of Systems ROS Unobtainable: other Constitutional Constitutional ED: Reports lethargy; Denies chills, fever(s), sweats or weight loss Eyes Eyes: Denies blurry vision, change in vision or diplopia ENT ENT ED: Denies rhinorrhea or sore throat Cardiovascular Cardiovascular: Reports chest pain, palpitations and racing heartbeat; Denies orthopnea Respiratory/Chest Respiratory/Chest: Denies cough, dyspnea, dyspnea on exertion, orthopnea or sputum Gastrointestinal Gastrointestinal: Denies abdominal pain, diarrhea, nausea or vomiting Genitourinary Genitourinary ED: Denies dysuria, hematuria or urinary frequency Musculoskeletal Musculoskeletal: Denies arthralgias, back pain, myalgias or neck pain Integumentary Denies abscess, Abrasions or rash Neurologic Neurologic: Denies headache(s) or weakness Psychiatric Psychiatric: Denies anxiety, depression or suicidal thoughts Endocrine Endocrinology: Denies polydipsia, polyphagia or polyuria Hematologic/Lymphatic Hematologic/Lymphatic: Denies easy bleeding, easy bruising or lymphadenopathy Allergic/Immunologic Allergic/Immunologic ED: Denies mouth swelling, tongue swelling or urticaria EXAM Physical Exam Const Vital Signs: 02/04/24 17:09 02/04/24 17:21 02/04/24 18:15 Temperature 96.6 F L Temperature Source Tympanic Pulse Rate 94 92 Respiratory Rate 14 23 H Blood Pressure 136/88 H 121/82 H Blood Pressure [Lying] Blood Pressure [Sitting (for 1 minute prior to obtaining)] Blood Pressure [Standing (for 1 minute prior to obtaining)] Blood Pressure Mean 104 95 Blood Pressure Mean [Lying] Blood Pressure Mean [Sitting (for 1 minute prior to obtaining)] Blood Pressure Mean [Standing (for 1 minute prior to obtaining)] Pulse Ox 99 93 Oxygen Delivery Method Room Air Room Air Room Air 02/04/24 18:19 Temperature Temperature Source Pulse Rate Respiratory Rate Blood Pressure Blood Pressure [Lying] 121/82 H Blood Pressure [Sitting (for 1 minute prior to obtaining)] 123/78 H Blood Pressure [Standing (for 1 minute prior to obtaining)] 110/75 Blood Pressure Mean Blood Pressure Mean [Lying] 95 Blood Pressure Mean [Sitting (for 1 minute prior to obtaining)] 93 Blood Pressure Mean [Standing (for 1 minute prior to obtaining)] 86 Pulse Ox Oxygen Delivery Method Positive well nourished and well developed General Appearance ED: well developed and NAD HEENT Reports TM's clear and moist mucous membranes normocephalic and atraumatic; Negative for trauma or tenderness Tympanic Membrane ED: Yes TM's clear Eyes PERRL and EOMs intact bilaterally General Eye ED: Negative for pale conjunctiva or scleral icterus Neck no lymphadenopathy, supple and no JVD General: Negative for tenderness Chest Wall inspection of chest normal and palpation of chest normal Chest: Negative for tenderness Resp normal respiratory effort and clear to auscultation bilaterally Effort and Inspection: Negative for respiratory distress or pain with movement Auscultation: Negative for rhonchi, wheezes or diminished lung sounds Cardio regular rate, regular rhythm, S1 normal heart sound, S2 normal heart sound and no murmurs Peripheral Pulses: pulses 2+ throughout GI normal to inspection, nondistended, normoactive bowel sounds, soft to palpation, non-tender, non-distended and no masses Back/Spine no CVA tenderness and no thoracic nor lumbar tenderness Extremity normal to inspection General Extremety ED: Negative for edema General Extremity: Negative for edema Neuro oriented x3, CN's II-XII intact bilaterally, no sensory deficits noted and gait normal Sensorium / Orientation: awake, alert, oriented to person, oriented to place and oriented to time Motor Exam: strength 5/5 throughout and strength abnormal Psych mental status grossly normal Skin no rashes or lesions noted and no wounds Heart Score History: Slightly/Non-Suspicious ECG: Normal Age: >45 - <65 years Risk Factors: 1 or 2 Risk Factors Troponin: </= Normal Limit Score: 2 MDM MDM MDM Narrative Medical decision making narrative: Patient presents with racing heart and palpitations. She had some chest discomfort. In the differential would be acute coronary syndrome versus PE versus anxiety versus dehydration or other etiology. IV line established. EKG obtained showed a sinus rhythm with rate of 96 bpm with no acute ST segment changes. CBC with differential showed a white count of 8.8 with hemoglobin 15 and platelet count of 234. Chemistries unremarkable. Troponin was 4. TSH normal at 2.83. Chest x-ray unremarkable. Orthostatic vital signs were negative. Heart rate with standing only went up into the 80s. Recommended obtaining a delta troponin although my suspicion for acute coronary syndrome is low patient does not want to have it done and would like to be discharged. Also discussed about possibly applying a Holter monitor however she states that she would prefer to follow-up with her primary care physician and if symptoms worsen she knows to come back. Lab Data Attestation: I reviewed the patient's lab results. Labs: Laboratory Results - last 24 hr 02/04/24 17:15 WBC 8.8 RBC 4.79 Hgb 15.2 H Hct 45.4 MCV 94.8 MCH 31.7 MCHC 33.5 RDW Std Deviation 45.3 H RDW Coeff of Sakina 13.0 Plt Count 234 MPV 12.0 Immature Gran % (Auto) 0.300 Neut % (Auto) 46.1 L Lymph % (Auto) 43.8 H Gillespie % (Auto) 7.7 Eos % (Auto) 1.3 Baso % (Auto) 0.8 Absolute Neuts (auto) 4.0 Absolute Lymphs (auto) 3.85 Nucleated RBC % 0 D-Dimer Quant (PE/DVT) 0.43 Sodium 139 Potassium 3.9 Chloride 108 H Carbon Dioxide 24.0 Anion Gap 7 BUN 11 Creatinine 0.96 Estim Creat Clear Calc 75.88 Est GFR (MDRD) Af Amer 81 Est GFR (MDRD) Non-Af 67 BUN/Creatinine Ratio 11.5 Glucose 86 Calcium 10.0 Troponin I High Sens 4 TSH 2.83 Radiography Diagnostic Testing: Clinical Impression(s) from Imaging Studies Chest X-Ray 02/04/24 17:26 IMPRESSION: Normal x-ray examination of the chest. Electronically Signed: Juan Luis Church MD at 17:52 EDT , 1 view chest x-ray obtained interpreted by myself as no evidence of infiltrate or pneumothorax or acute disease process. Radiology in agreement. EKG Initial EKG: Attestation: I personally reviewed and interpreted this EKG as follows: Comments: Sinus rhythm with ventricular rate of 96 bpm with no acute ST segment changes Discharge Plan Triage Chief Complaint: Palpitations ED Provider: Robin Alex Dx/Rx/DC Orders Clinical Impression: Palpitations, Chest pain Instructions: ED Chest Pain, Uncertain Cause, ED Palpitations Prescriptions: No Action omeprazole 40 mg capsule,delayed release(DR/EC) 40 mg PO BID Qty: 90 1RF propranolol 10 mg tablet 10 mg PO TID PRN (Reason: akathisia) Qty: 30 1RF paroxetine HCl 30 mg tablet 30 mg PO DAILY 30 Days Qty: 30 2RF meloxicam 7.5 mg tablet 7.5 mg PO DAILY MDD 2 Qty: 30 0RF prednisone 5 mg tablets,dose pack See Rx Instructions PO PER PKG DIR Qty: 21 0RF Rx Instructions: PO PER PKG DIR gabapentin 300 mg capsule See Rx Instructions PO .COMPLEX Qty: 150 2RF Rx Instructions: 300 mg PO qAM and qPM and 900 mg PO qHS buspirone 15 mg tablet See Rx Instructions .ROUTE .COMPLEX Qty: 60 2RF Dose Instruction: TAKE 1 TABLET BY MOUTH TWICE DAILY Rx Instructions: TAKE 1 TABLET BY MOUTH TWICE DAILY prazosin 1 mg capsule 1 mg PO QHS Qty: 30 2RF epinephrine [EpiPen 2-Tahir] 0.3 mg/0.3 mL auto-injector 0.3 mg IM Q4H PRN (Reason: anaphylaxis) Qty: 2 0RF ibuprofen 600 mg tablet 600 mg PO Q8H PRN PRN (Reason: pain) Qty: 16 0RF dicyclomine 10 mg capsule 10 mg PO TID PRN (Reason: abdominal pain) Qty: 14 0RF ondansetron 4 mg tablet,disintegrating 4 mg PO Q8H PRN PRN (Reason: Nausea) Qty: 10 0RF alprazolam 0.5 mg tablet 0.5 mg PO DAILY PRN (Reason: anxiety) Qty: 15 1RF Primary Care Provider: Neymar Mayo Referrals: Neymar Mayo MD [Primary Care Provider] - 3-5 Days Print Language: Citizen Of [place] Disposition Disposition: Home, Self Care
[2024-02-04] MEDS: Aspirin 81 MG TAB.CHEW 324 MG PO (17:26)
--- NOTE | 2024-02-04 17:26 | RAD_ITS ---
STUDY: X-RAY CHEST REASON FOR EXAM: Female, 48 years old. chest pain TECHNIQUE: AP portable COMPARISON: July 29, 2023 FINDINGS: The lungs are clear and expanded. There is no demonstrated pleural abnormality. Normal size heart. Normal mediastinum and alan. Normal visualized pulmonary arteries. Normal visualized aortic arch and descending thoracic aorta. Normal visualized thoracic spine. Normal visualized ribs, clavicles, and shoulders. There is no demonstrated abnormality of the visualized soft tissue structures of the upper abdomen. RAD/Chest 1 View (Portable) IMPRESSION: Normal x-ray examination of the chest. Electronically Signed: Juan Luis Church MD at 17:52 EDT ,
--- NOTE | 2024-02-04 17:30 | EKG12_ITS ---
Test Reason : PALPS Blood Pressure : / mmHG Vent. Rate : 096 BPM Atrial Rate : 096 BPM P-R Int : 152 ms QRS Dur : 078 ms QT Int : 344 ms P-R-T Axes : 056 054 032 degrees QTc Int : 434 ms Normal sinus rhythm Normal ECG Confirmed by KATHIA MELGAR, GASTON ([id number]), primer expeditor and drier GLORY HERNANDEZ ([id number]) on 02/06/2024 9:51:24 AM Referred By: MANISH/SOPHIE Confirmed By:GASTON BAE MD
[2024-02-04 17:31] LABS: Absolute Lymphocyte Count 3.85 X10^3/uL (0.83-4.51); Basophil# 0.07 X10^3/uL; Basophil% 0.8 % (0-1); Eosinophil# 0.11 X10^3/uL; Eosinophils% 1.3 % (0-5); Hematocrit 45.4 % (37-47); Hemoglobin 15.2 g/dL (12.0-15.0); Lymphocyte # 3.85 X10^3/ul (0.83-4.51); Lymphocyte % 43.8 % (19-41); Mean Corp Hgb Conc 33.5 g/dL (32-36); Mean Corpuscular Hgb 31.7 pg (27.0-32.0); Mean Corpuscular Volume 94.8 fL (81-99); Monocyte# 0.68 X10^3/uL; Monocyte% 7.7 % (0-10); NRBC Flagged by Analyzer 0 % (0-5); Neutrophil # 4.04 X10^3/uL (2.7-7.7); Neutrophil % 46.1 % (47-70); Platelet Count 234 K/mm3 (150-450); RBC Distribution Width SD 45.3 fl (35.1-43.9); Red Blood Count 4.79 M/mm3 (4.2-5.4); White Blood Count 8.8 K/mm3 (4.4-11.0)
[2024-02-04] MEDS: 0.9% Normal Saline (1000mL) 1,000 ML 150 ML IV (17:32)
[2024-02-04 17:47] LABS: D-Dimer Quantitative (DVT/PE) 0.43 FEU/ug/m (0.27-0.49)
[2024-02-04 18:01] LABS: Anion Gap 7 (5-15); BUN 11 mg/dL (7-18); BUN/Creat Ratio 11.5 RATIO (10-20); Chloride 108 mmol/L (98-107); Creatinine, Serum 0.96 mg/dL (0.55-1.02); EST Glomerular Filtration Rate 67 mL/min (>60); Est Glom Filt Rate - Afr Amer 81 mL/min (>60); Estimated Creatinine Clearance 75.88 ml/min; Glucose 86 mg/dL (74-106); Potassium 3.9 mmol/L (3.5-5.1); Sodium Level 139 mmol/L (136-145); Thyroid Stim Hormone (TSH) 2.83 uIU/mL (0.358-3.74); Troponin-I HS (w/2H Reflex) 4 pg/mL (3.0-54.0)
[2024-02-04 18:15] VITALS: BP 121/82; PULSE 92; RESP 23; O2SAT 93
[2024-02-04 18:19] VITALS: BP 110/75; BP 121/82; BP 123/78
[2024-02-04 18:58] VITALS: BP 135/86; PULSE 82; RESP 16; TEMP 36.6; O2SAT 99
[2024-02-04 19:26] LABS: Reflex Troponin-HS? (from REC) Y
== END 2024-02-04 19:01 | disposition home or self-care (01) ==
PROVIDERS: Emergency Provider Emergency Medicine; PCP Internal Medicine; Visit Provider Emergency Medicine
DX: R07.9 Chest pain, unspecified (principal); R00.2 Palpitations; E78.00 Pure hypercholesterolemia, unspecified; Z86.73 Personal history of transient ischemic attack (TIA), and cerebral infarction without residual deficits; I10 Essential (primary) hypertension; K21.9 Gastro-esophageal reflux disease without esophagitis; F32.A Depression, unspecified; Z90.49 Acquired absence of other specified parts of digestive tract; Z90.710 Acquired absence of both cervix and uterus; F17.210 Nicotine dependence, cigarettes, uncomplicated
CPT/HCPCS: 71045; 80048; 84443; 84484; 85025; 85379; 93005; 96360; 99284; J7030; A4216

== ENCOUNTER → 2024-02-07 | Outpatient (CLI) | payer MEDICAID, SELFPAY ==
[2024-02-07 15:40] LABS: Bacteria 0 SEEN /hpf (None Seen); Mucous, Urine 0 SEEN /hpf (<or=2+); Red Blood Cells-Urine 0 SEEN /hpf (0-5); White Blood Cells 0 SEEN /hpf (0-5)
[2024-02-07 17:41] LABS: Erythrocyte Sedimentation Rate 15 mm/hr (0-30)
[2024-02-07 18:03] LABS: Color, Urine Yellow (Yellow); Glucose, Dipstick Normal (Normal); Ketone-Dipstick Negative (Negative); Leukocyte Esterase-Dipstick Negative /ul (Negative); Nitrite-Dipstick Negative (Negative); Occult Blood-Urine Negative /ul (Negative); Protein-Dipstick Negative (Negative); Urine Bilirubin Dipstick Negative (Negative); Urine Clarity Clear (Clear); Urine Urobilinogen Normal (Normal); Urine pH 6.5 (5.0 - 8.0)
[2024-02-07 18:26] LABS: CRP < 2.90 mg/L (0.0-3.0)
[2024-02-07 19:00] LABS: Squamous Epithelial Cells - UA 5-10 SEEN /hpf (5-10)
[2024-02-09 13:08] LABS: ANTINUCLEAR ANTIBODIES DIRECT Negative (Negative)
[2024-02-09 17:07] LABS: Dilute Prothrombin Time (dPT) 37.4 sec (0.0-47.6); Dilute Russell Viper Venom 40.6 sec (0.0-47.0); Interpretation Comment: (.); PTT-LA 42.7 sec (0.0-43.5); Thrombin Time 19.3 sec (0.0-23.0); dPT Confirm Ratio 1.15 Ratio (0.00-1.34)
== END | disposition home or self-care (01) ==
LOC: MTLAB 15:38
PROVIDERS: PCP Internal Medicine; Referring Provider Nurse Practitioner; Visit Provider Nurse Practitioner
DX: M25.50 Pain in unspecified joint (principal)
CPT/HCPCS: 86225; 86235 ×5; 36415; 81001; 85652; 86038; 86140

== ENCOUNTER 2024-02-27 12:48 | Emergency (ER) | payer MEDICAID, SELFPAY ==
[2024-02-27 12:48] VITALS: BP 161/89; PULSE 112; RESP 18; TEMP 36.4; O2SAT 98; BMI 33.0
[2024-02-27] MEDS: Clindamycin HCl 150 MG Capsule 300 MG PO (14:00)
[2024-02-27] MEDS: Bupivacaine 0.5%/Epi 1.8 ML Syringe INFILT (14:00)
--- NOTE | 2024-02-27 14:27 | EDS_ITS ---
HPI History of Present Illness Chief Complaint: Dental Informant: patient Narrative Narrative: Patient is a 48-year-old female presenting with 1 day of right lower dental pain. Patient states she is generalized and when she felt her remaining right lower molar cracked. She had significant pain there. She describes it is Labor pain in her tooth. States making her feel like she wants to jump out of her skin. She is been taking ibuprofen regularly with no help. She denies any difficulty swallowing. Does smoke cigarettes but has not smoked today because of her dental pain. Called her dentist and has an appointment on the but was told to come in to be evaluated before that. No other complaints or concerns reported at this time. 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 Menopausal hot flushes Hyperlipidemia Anxiety and depression Rectal prolapse Anal fissure History of stress test Vaginal kushal Oral thrush Left shoulder pain Left shoulder tendinitis Cervical radiculopathy Contact dermatitis Depression Fatty liver High cholesterol Injury of back Restless legs Gastric reflux Smoker POWELL (nonalcoholic steatohepatitis) Hypertension Fibromyalgia History of pneumonia Lupus Liver disease Headache, migraine GI problem Arthritis Home Medications ?Medication ?Instructions ?Recorded ?Last Taken ?Type epinephrine 0.3 mg/0.3 mL 0.3 mg (0.3 mL) IM Q4H PRN 07/28/22 Unknown Rx injection, auto-injector (EpiPen anaphylaxis #2 ea 2-Tahir) ibuprofen 600 mg tablet 600 mg PO Q8H PRN PRN pain #16 09/26/22 Unknown Rx TABLETS propranolol 10 mg tablet 10 mg PO TID PRN akathisia #30 tabs 07/13/23 Unknown Rx dicyclomine 10 mg capsule 10 mg PO TID PRN abdominal pain 08/30/23 Unknown Rx #14 caps paroxetine HCl 30 mg tablet 30 mg PO DAILY 30 days #30 tabs 11/02/23 Unknown Rx buspirone 15 mg tablet See Rx Instructions .Route 12/21/23 Unknown Rx .COMPLEX #60 tabs prazosin 1 mg capsule 1 mg PO QHS #30 caps 12/21/23 Unknown Rx pantoprazole 40 mg tablet,delayed 40 mg PO DAILY #30 tabs 02/07/24 Unknown Rx release (Protonix) gabapentin 300 mg capsule See Rx Instructions PO .COMPLEX 02/09/24 Unknown Rx #150 caps alprazolam 0.5 mg tablet 0.5 mg PO DAILY PRN anxiety #30 02/16/24 Unknown Rx tabs amlodipine 2.5 mg tablet 2.5 mg PO DAILY #60 tabs 02/21/24 Unknown Rx fluconazole 150 mg tablet 150 mg PO Q3D 2 doses #2 tabs 02/21/24 Unknown Rx clindamycin HCl 150 mg capsule 300 mg (2 x 150 mg) PO 4X/DAY #80 02/27/24 Unknown Rx CAPSULES hydrocodone-acetaminophen 5-325mg 1 tab PO Q8H PRN Pain 3 days #10 02/27/24 Unknown Rx 5mg-325mg TABLETS Allergy/AdvReac Type Severity Reaction Status Date / Time shellfish derived Allergy Severe Anaphylaxis Verified 02/27/24 12:50 Sulfa (Sulfonamide Allergy Severe Hives Verified 02/27/24 12:50 Antibiotics) tree nut Allergy Severe Anaphylaxis Verified 02/27/24 12:50 adhesive Allergy NEEDS Verified 02/27/24 12:50 FOLLOW-UP amoxicillin trihydrate (From Allergy Hives Verified 02/27/24 12:50 Augmentin) Iodinated Contrast Media Allergy Swelling Verified 02/27/24 12:50 (DYEE) nitrofurantoin Allergy Hives Verified 02/27/24 12:50 macrocrystalline (From Macrodantin) phenazopyridine (From Allergy Hives Verified 02/27/24 12:50 Pyridium) potassium clavulanate (From Allergy Hives Verified 02/27/24 12:50 Augmentin) sulfamethoxazole (From Allergy Hives Verified 02/27/24 12:50 Bactrim) trimethoprim (From Bactrim) Allergy Hives Verified 02/27/24 12:50 Family History Father Alcoholism CVA (cerebral vascular accident) Mother Cancer Melanoma Grandfather Cancer Grandmother Cancer Other Arthritis Autoimmune disorder Breast cancer Colon cancer Depression Heart disease Hypertension Liver disease Myocardial infarction Ovarian cancer Psychiatric care Thyroid disorder Uterine cancer ulcer disease Surgical History History of appendectomy History of oophorectomy History of exploratory laparotomy History of tonsillectomy Hx of hysterectomy Hx of hernia repair Hx of section Social History household members: none Smoking Status: Current every day smoker tobacco type: cigarettes alcohol intake: never substance use type: does not use ROS ROS ED Constitutional Constitutional ED: Denies chills or fever(s) Eyes Eyes: Denies change in vision ENT ENT ED: Reports ear pain right and other Details: Right-sided dental pain Gastrointestinal Gastrointestinal: Denies nausea or vomiting Integumentary Denies rash Neurologic Neurologic: Reports headache(s) Hematologic/Lymphatic Hematologic/Lymphatic: Denies easy bleeding or easy bruising EXAM Physical Exam Const Vital Signs: 02/27/24 12:48 Temperature 97.6 F L Temperature Source Temporal Pulse Rate 112 H Respiratory Rate 18 Blood Pressure 161/89 H Blood Pressure Mean 113 Pulse Ox 98 Oxygen Delivery Method Room Air Positive well nourished and well developed General Appearance ED: well developed and NAD HEENT Reports TM's clear HEENT Narrative: Overall poor dentition with multiple missing and carried teeth Negative for trauma Face and Sinus: sinuses nontender Tympanic Membrane ED: Yes TM's clear Mouth ED: Yes lips normal and Yes tongue normal Mouth: lips normal and tongue normal Teeth and Gingiva: abnormal tooth and associated gingiva Positive for tenderness, associated gingival edema, enamel fractured and other (Remaining right lower molar); Negative for associated gingival fluctuance Neck no lymphadenopathy and supple Chest Wall inspection of chest normal Resp normal respiratory effort Cardio regular rate and regular rhythm Neuro oriented x3 Sensorium / Orientation: alert Motor Exam: Negative for general weakness Psych mental status grossly normal MDM MDM MDM Narrative Medical decision making narrative: Patient is evaluated for worsening right lower dental pain. She has a carried right molar that does appear to have a piece of enamel broken off. There is some associated gingival swelling but no obvious fluctuance or abscess appreciated. Patient started on clindamycin as she has document allergy to Bactrim and penicillins (she only tells me about an allergy to Bactrim). She is given first dose in the emergency room. Inferior alveolar block is performed for pain control and patient has good relief of. I will prescribe a short course of [place] for pain control until the antibiotics can kick in. Patient is agreeable to plan of care. She will also continue take NSAIDs. Given return precaution. Has outpatient dental follow-up. At this time she does not have findings consistent with Maximino angina or more severe dental infection. Procedures Other Procedures Procedure(s): Dental block Inferior alveolar block- right Marcaine used with dental syringe. Anatomical landmarks identified. Initially aspirated to ensure no blood return. 1.8 mL injected. Patient had good analgesia with no immediate complications. Discharge Plan Triage Chief Complaint: Dental ED Provider: Chela Conte Dx/Rx/DC Orders Clinical Impression: Pain, dental Instructions: ED Dental Pain Prescriptions: New clindamycin HCl 150 mg capsule 300 mg PO 4X/DAY Qty: 80 0RF hydrocodone-acetaminophen 5-325 mg tablet 1 tab PO Q8H PRN (Reason: Pain) 3 Days Qty: 10 0RF No Action propranolol 10 mg tablet 10 mg PO TID PRN (Reason: akathisia) Qty: 30 1RF paroxetine HCl 30 mg tablet 30 mg PO DAILY 30 Days Qty: 30 2RF buspirone 15 mg tablet See Rx Instructions .ROUTE .COMPLEX Qty: 60 2RF Dose Instruction: TAKE 1 TABLET BY MOUTH TWICE DAILY Rx Instructions: TAKE 1 TABLET BY MOUTH TWICE DAILY prazosin 1 mg capsule 1 mg PO QHS Qty: 30 2RF pantoprazole [Protonix] 40 mg tablet,delayed release (DR/EC) 40 mg PO DAILY Qty: 30 0RF fluconazole 150 mg tablet 150 mg PO Q3D Qty: 2 0RF Rx Instructions: may repeat second dose 72 hrs after first dose if symptoms persist amlodipine 2.5 mg tablet 2.5 mg PO DAILY Qty: 60 0RF epinephrine [EpiPen 2-Tahir] 0.3 mg/0.3 mL auto-injector 0.3 mg IM Q4H PRN (Reason: anaphylaxis) Qty: 2 0RF ibuprofen 600 mg tablet 600 mg PO Q8H PRN PRN (Reason: pain) Qty: 16 0RF dicyclomine 10 mg capsule 10 mg PO TID PRN (Reason: abdominal pain) Qty: 14 0RF gabapentin 300 mg capsule See Rx Instructions PO .COMPLEX Qty: 150 2RF Rx Instructions: 300 mg PO qAM and qPM and 900 mg PO qHS alprazolam 0.5 mg tablet 0.5 mg PO DAILY PRN (Reason: anxiety) Qty: 30 0RF Primary Care Provider: Neymar Mayo Referrals: Neymar Mayo MD [Primary Care Provider] - Activity Restrictions/Additional Instructions: Follow-up with your dentist. You may continue takes up to 600 mg (3 tablets) of ibuprofen every 6 hours for pain as well. Print Language: Rwandan Disposition Disposition: Home, Self Care
== END 2024-02-27 14:53 | disposition home or self-care (01) ==
PROVIDERS: Emergency Provider Emergency Medicine; PCP Internal Medicine; Visit Provider Emergency Medicine
DX: K08.89 Other specified disorders of teeth and supporting structures (principal); E78.00 Pure hypercholesterolemia, unspecified; I10 Essential (primary) hypertension; F17.210 Nicotine dependence, cigarettes, uncomplicated; Z79.899 Other long term (current) drug therapy; F32.9 Major depressive disorder, single episode, unspecified; F41.9 Anxiety disorder, unspecified; K21.9 Gastro-esophageal reflux disease without esophagitis; Z90.49 Acquired absence of other specified parts of digestive tract; Z90.710 Acquired absence of both cervix and uterus
CPT/HCPCS: 64999; 99283

== ENCOUNTER 2024-03-07 13:24 | Emergency (ER) | payer MEDICAID, SELFPAY ==
[2024-03-07 13:24] VITALS: BP 150/81; PULSE 108; RESP 20; TEMP 36.1; O2SAT 99; BMI 33.2
--- NOTE | 2024-03-07 14:41 | ED.VIS.DENTA ---
HPI History of Present Illness Chief Complaint: Dental Informant: patient Onset/Context/Timing Onset: Weeks (2) Context: Gradual Onset Timing: Continuous Quality: Sharp Location: Right lower premolar and molar Worsened by: Eating, drinking Relieved by: - (Nothing) Associated Symptoms Assocated Symptom - Dental: jaw swelling, face swelling, cold sensitivity and hot sensitivity; Negative for fever Narrative Narrative: Patient presents with right lower dental pain that has been getting progressively worse over the past 2 weeks. Patient states she is on Keflex currently. Patient states her pain is mainly over the right lower first premolar and second molar. Patient states her pain is worse with eating and drinking. Patient describes her pain as sharp. Patient states she has been taking ibuprofen with no improvement. Patient admits to some swelling of her jaw and face. Patient also admits to hot and cold sensitivity. Patient states she currently has a dental appointment on 03/26/2024. 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 Menopausal hot flushes Hyperlipidemia Anxiety and depression Rectal prolapse Anal fissure History of stress test Vaginal kushal Oral thrush Left shoulder pain Left shoulder tendinitis Cervical radiculopathy Contact dermatitis Depression Fatty liver High cholesterol Injury of back Restless legs Gastric reflux Smoker POWELL (nonalcoholic steatohepatitis) Hypertension Fibromyalgia History of pneumonia Lupus Liver disease Headache, migraine GI problem Arthritis Home Medications ?Medication ?Instructions ?Recorded ?Last Taken ?Type epinephrine 0.3 mg/0.3 mL 0.3 mg (0.3 mL) IM Q4H PRN 07/28/22 Unknown Rx injection, auto-injector (EpiPen anaphylaxis #2 ea 2-Tahir) ibuprofen 600 mg tablet 600 mg PO Q8H PRN PRN pain #16 09/26/22 Unknown Rx TABLETS propranolol 10 mg tablet 10 mg PO TID PRN akathisia #30 tabs 07/13/23 Unknown Rx dicyclomine 10 mg capsule 10 mg PO TID PRN abdominal pain 08/30/23 Unknown Rx #14 caps pantoprazole 40 mg tablet,delayed 40 mg PO DAILY #30 tabs 02/07/24 Unknown Rx release (Protonix) gabapentin 300 mg capsule See Rx Instructions PO .COMPLEX 02/09/24 Unknown Rx #150 caps amlodipine 2.5 mg tablet 2.5 mg PO DAILY #60 tabs 02/21/24 Unknown Rx fluconazole 150 mg tablet 150 mg PO Q3D 2 doses #2 tabs 02/21/24 Unknown Rx clindamycin HCl 150 mg capsule 300 mg (2 x 150 mg) PO 4X/DAY #80 02/27/24 Unknown Rx CAPSULES hydrocodone-acetaminophen 5-325mg 1 tab PO Q8H PRN Pain 3 days #10 02/27/24 Unknown Rx 5mg-325mg TABLETS buspirone 15 mg tablet See Rx Instructions .Route 02/28/24 Unknown Rx .COMPLEX #60 tabs paroxetine HCl 30 mg tablet 30 mg PO DAILY 30 days #30 tabs 02/28/24 Unknown Rx prazosin 1 mg capsule 1 mg PO QHS #30 caps 02/28/24 Unknown Rx zolpidem 5 mg tablet 5 mg PO QHS PRN insomnia 30 days 02/28/24 Unknown Rx #30 tabs clindamycin HCl 300 mg capsule 300 mg PO Q6H #40 CAPSULES 03/07/24 Unknown Rx (Cleocin HCl) tramadol 50 mg tablet 50 mg PO Q6H PRN PRN Pain 3 days 03/07/24 Unknown Rx #12 tabs Allergy/AdvReac Type Severity Reaction Status Date / Time shellfish derived Allergy Severe Anaphylaxis Verified 03/07/24 13:26 Sulfa (Sulfonamide Allergy Severe Hives Verified 03/07/24 13:26 Antibiotics) tree nut Allergy Severe Anaphylaxis Verified 03/07/24 13:26 adhesive Allergy NEEDS Verified 03/07/24 13:26 FOLLOW-UP amoxicillin trihydrate (From Allergy Hives Verified 03/07/24 13:26 Augmentin) Iodinated Contrast Media Allergy Swelling Verified 03/07/24 13:26 (DYEE) nitrofurantoin Allergy Hives Verified 03/07/24 13:26 macrocrystalline (From Macrodantin) phenazopyridine (From Allergy Hives Verified 03/07/24 13:26 Pyridium) potassium clavulanate (From Allergy Hives Verified 03/07/24 13:26 Augmentin) sulfamethoxazole (From Allergy Hives Verified 03/07/24 13:26 Bactrim) trimethoprim (From Bactrim) Allergy Hives Verified 03/07/24 13:26 Family History Father Alcoholism CVA (cerebral vascular accident) Mother Cancer Melanoma Grandfather Cancer Grandmother Cancer Other Arthritis Autoimmune disorder Breast cancer Colon cancer Depression Heart disease Hypertension Liver disease Myocardial infarction Ovarian cancer Psychiatric care Thyroid disorder Uterine cancer ulcer disease Surgical History History of appendectomy History of oophorectomy History of exploratory laparotomy History of tonsillectomy Hx of hysterectomy Hx of hernia repair Hx of section Social History household members: none Smoking Status: Current every day smoker tobacco type: cigarettes alcohol intake: never substance use type: does not use ROS ROS ED Constitutional Constitutional ED: Reports sweats; Denies chills or fever(s) Eyes Eyes: Denies blurry vision or change in vision ENT ENT ED: Denies rhinorrhea or sore throat Cardiovascular Cardiovascular: Denies chest pain or palpitations Respiratory/Chest Respiratory/Chest: Denies cough or dyspnea Gastrointestinal Gastrointestinal: Reports nausea; Denies vomiting Genitourinary Genitourinary ED: Denies dysuria or hematuria Musculoskeletal Musculoskeletal: Reports neck pain; Denies back pain Integumentary Denies abscess or rash Neurologic Neurologic: Reports headache(s); Denies weakness Allergic/Immunologic Allergic/Immunologic ED: Denies mouth swelling or urticaria EXAM Physical Exam Const Vital Signs: 03/07/24 13:24 Temperature 96.9 F L Temperature Source Temporal Pulse Rate 108 H Respiratory Rate 20 H Blood Pressure 150/81 H Blood Pressure Mean 104 Pulse Ox 99 Oxygen Delivery Method Room Air Positive well nourished and well developed General Appearance ED: well developed and NAD HEENT Mouth ED: Yes oral and palatal mucosa normal, Yes lips normal and Yes tongue normal Mouth: oral and palatal mucosa normal, lips normal and tongue normal Teeth and Gingiva: abnormal tooth and associated gingiva Positive for tenderness and associated gingival edema, caries and gingiva abnormal Positive for gingival edema Throat: posterior oropharynx normal Neck supple and no JVD General: Negative for anterior neck swelling or submandibular swelling Neuro oriented x3, CN's II-XII intact bilaterally, moves all extremities, no focal motor deficits and no sensory deficits noted Sensorium / Orientation: alert Motor Exam: strength 5/5 throughout Psych mental status grossly normal MDM MDM MDM Narrative Medical decision making narrative: Patient was advised that this is most likely infected dental caries. Patient was instructed to stop taking the Keflex. Patient was given a prescription for clindamycin. Patient was given a prescription for a short course of tramadol. Patient was instructed to follow-up with her dentist in 5 to 7 days. Patient was instructed to return if worse in any way. Patient understood and was agreeable with the plan. All questions were answered. Discharge Plan Triage Chief Complaint: Dental ED Provider: Dwain Bazzi Dx/Rx/DC Orders Clinical Impression: Infected dental caries Instructions: ED Dental Pain, ED Dental Cavity Prescriptions: New clindamycin HCl [Cleocin HCl] 300 mg capsule 300 mg PO Q6H Qty: 40 0RF tramadol 50 mg tablet 50 mg PO Q6H PRN PRN (Reason: Pain) 3 Days Qty: 12 0RF No Action propranolol 10 mg tablet 10 mg PO TID PRN (Reason: akathisia) Qty: 30 1RF zolpidem 5 mg tablet 5 mg PO QHS PRN (Reason: insomnia) 30 Days Qty: 30 1RF buspirone 15 mg tablet See Rx Instructions .ROUTE .COMPLEX Qty: 60 2RF Dose Instruction: TAKE 1 TABLET BY MOUTH TWICE DAILY Rx Instructions: TAKE 1 TABLET BY MOUTH TWICE DAILY paroxetine HCl 30 mg tablet 30 mg PO DAILY 30 Days Qty: 30 2RF prazosin 1 mg capsule 1 mg PO QHS Qty: 30 2RF pantoprazole [Protonix] 40 mg tablet,delayed release (DR/EC) 40 mg PO DAILY Qty: 30 0RF fluconazole 150 mg tablet 150 mg PO Q3D Qty: 2 0RF Rx Instructions: may repeat second dose 72 hrs after first dose if symptoms persist amlodipine 2.5 mg tablet 2.5 mg PO DAILY Qty: 60 0RF epinephrine [EpiPen 2-Tahir] 0.3 mg/0.3 mL auto-injector 0.3 mg IM Q4H PRN (Reason: anaphylaxis) Qty: 2 0RF ibuprofen 600 mg tablet 600 mg PO Q8H PRN PRN (Reason: pain) Qty: 16 0RF dicyclomine 10 mg capsule 10 mg PO TID PRN (Reason: abdominal pain) Qty: 14 0RF clindamycin HCl 150 mg capsule 300 mg PO 4X/DAY Qty: 80 0RF hydrocodone-acetaminophen 5-325 mg tablet 1 tab PO Q8H PRN (Reason: Pain) 3 Days Qty: 10 0RF gabapentin 300 mg capsule See Rx Instructions PO .COMPLEX Qty: 150 2RF Rx Instructions: 300 mg PO qAM and qPM and 900 mg PO qHS Primary Care Provider: Neymar Mayo Referrals: Neymar Mayo MD [Primary Care Provider] - Dentist,Your [STAFF PHYSICIAN] - As soon as possible Activity Restrictions/Additional Instructions: Stop taking the Keflex. Take your prescription for clindamycin as prescribed until gone. Print Language: Dutch Disposition Disposition: Home, Self Care
[2024-03-07 14:59] VITALS: BP 142/75; PULSE 85; RESP 16; TEMP 36.2; O2SAT 98
== END 2024-03-07 15:01 | disposition home or self-care (01) ==
PROVIDERS: Emergency Provider Emergency Medicine; PCP Internal Medicine; Visit Provider Emergency Medicine
DX: K02.9 Dental caries, unspecified (principal); E78.00 Pure hypercholesterolemia, unspecified; I10 Essential (primary) hypertension; K21.9 Gastro-esophageal reflux disease without esophagitis; F41.8 Other specified anxiety disorders; Z90.49 Acquired absence of other specified parts of digestive tract; Z90.710 Acquired absence of both cervix and uterus; F17.210 Nicotine dependence, cigarettes, uncomplicated
CPT/HCPCS: 99282

== ENCOUNTER → 2024-03-30 | Outpatient (CLI) | payer MEDICAID, SELFPAY ==
--- NOTE | 2024-03-30 11:30 | RAD_ITS ---
STUDY: X-RAY - RIGHT KNEE REASON FOR EXAM: Female, 49 years old. Right knee pain. TECHNIQUE: 4 views of the right knee. COMPARISON: None. FINDINGS: Normal visualized distal femur. Normal visualized proximal tibia and fibula. Normal proximal tibiofibular articulation. There is no demonstrated fracture. Normal medial femorotibial compartment. Normal lateral femorotibial compartment. Normal patellofemoral articulation. There is a small knee joint effusion. The soft tissue structures are unremarkable. RAD/Knee 4 or More Views IMPRESSION: Small right knee joint effusion. No demonstrated fracture. Electronically Signed: Rico Sánchez MD at 12:10 EDT ,
[2024-03-30 12:20] LABS: Erythrocyte Sedimentation Rate 7 mm/hr (0-30)
[2024-03-30 12:37] LABS: BNP,B-Type NATRIURETIC PEPTIDE 4.9 pg/mL (0-100)
[2024-03-30 12:44] LABS: CRP < 2.90 mg/L (0.0-3.0)
[2024-03-30 12:56] LABS: D-Dimer Quantitative (DVT/PE) < 0.27 FEU/ug/m (0.27-0.49)
[2024-04-02 15:08] LABS: Cytoplasmic Ab (C-ANCA) <1:20 titer (Neg:<1:20); Lyme Scn Total Ab w/Rflx Negative (Negative); Perinuclear Ab (P-ANCA) <1:20 titer (Neg:<1:20)
== END | disposition home or self-care (01) ==
LOC: MTLAB 11:28
PROVIDERS: PCP Internal Medicine; Referring Provider Nurse Practitioner; Visit Provider Nurse Practitioner
DX: M25.50 Pain in unspecified joint (principal); R07.1 Chest pain on breathing; M25.461 Effusion, right knee
CPT/HCPCS: 36415; 73564; 83880; 85379; 85652; 86140; 86256; 86618

== ENCOUNTER → 2024-04-20 | Outpatient (CLI) | payer MEDICAID, SELFPAY ==
--- NOTE | 2024-04-20 14:38 | RAD_ITS ---
STUDY: X-RAY - RIGHT KNEE REASON FOR EXAM: Female, 49 years old. Knee strain TECHNIQUE: 3 view(s) of the knee. COMPARISON: Comparison is made with prior study dated March 30, 2024. FINDINGS: Normal visualized distal femur. Normal visualized proximal tibia and fibula. Normal proximal tibiofibular articulation. Normal medial femorotibial compartment. Normal lateral femorotibial compartment. Normal patellofemoral articulation. Small joint effusion. RAD/Knee 3 Views IMPRESSION: Small joint effusion. Electronically Signed: Joe Guaman MD at 14:55 EDT ,
== END | disposition home or self-care (01) ==
LOC: MTRAD 14:38
PROVIDERS: PCP Nurse Practitioner; Referring Provider Physician Assistant Surgical; Visit Provider Physician Assistant Surgical
DX: S86.919A Strain of unspecified muscle(s) and tendon(s) at lower leg level, unspecified leg, initial encounter (principal)
CPT/HCPCS: 73562

== ENCOUNTER 2024-04-22 15:52 | Emergency (ER) | payer MEDICAID, SELFPAY ==
[2024-04-22 15:56] VITALS: BP 139/79; PULSE 122; RESP 18; TEMP 36.4; O2SAT 98
[2024-04-22 15:59] VITALS: BMI 32.8
[2024-04-22] MEDS: predniSONE 20 MG Tablet 40 MG PO (16:35)
[2024-04-22] MEDS: oxyCODONE 5 MG Tablet PO (16:35)
--- NOTE | 2024-04-22 16:56 | EDS_ITS ---
HPI History of Present Illness Chief Complaint: Lower Extremity Injury Informant: patient Narrative Narrative: Presents with knee injury occurring 3 days ago at work. 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 She was able to finish her job due to having 1.5 hours left. Next day pain was increasing. [facility] for [facility] 2 days ago. She is x-rays were done and negative. She was given work restrictions. She was told to use naproxen. She states they will try to approve an MRI however it can be delayed for approval. She was told to go to ED if pain worsens. There is been no new injuries. Pain worsened today even having a knee brace. She states since then pain behind her thigh and running down her calf to her foot. No back pain. No loss of bowel or bladder control. Denies history of similar. She did report she sees orthopedist Dr. Llanos for her left upper extremity. 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 Menopausal hot flushes Hyperlipidemia Anxiety and depression Rectal prolapse Anal fissure History of stress test Vaginal kushal Oral thrush Left shoulder pain Left shoulder tendinitis Cervical radiculopathy Contact dermatitis Depression Fatty liver High cholesterol Injury of back Restless legs Gastric reflux Smoker POWELL (nonalcoholic steatohepatitis) Hypertension Fibromyalgia History of pneumonia Lupus Liver disease Headache, migraine GI problem Arthritis Home Medications ?Medication ?Instructions ?Recorded ?Last Taken ?Type epinephrine 0.3 mg/0.3 mL 0.3 mg (0.3 mL) IM Q4H PRN 07/28/22 Unknown Rx injection, auto-injector (EpiPen anaphylaxis #2 ea 2-Tahir) ibuprofen 600 mg tablet 600 mg PO Q8H PRN PRN pain #16 09/26/22 Unknown Rx TABLETS gabapentin 300 mg capsule See Rx Instructions PO .COMPLEX 02/09/24 Unknown Rx #150 caps amlodipine 2.5 mg tablet 2.5 mg PO DAILY #60 tabs 06/25/24 Unknown Rx buspirone 15 mg tablet See Rx Instructions .Route 02/28/24 Unknown Rx .COMPLEX #60 tabs paroxetine HCl 30 mg tablet 30 mg PO DAILY 30 days #30 tabs 02/28/24 Unknown Rx prazosin 1 mg capsule 1 mg PO QHS #30 caps 02/28/24 Unknown Rx pantoprazole 40 mg tablet,delayed 40 mg PO DAILY #30 tabs 03/08/24 Unknown Rx release (Protonix) alprazolam 1 mg tablet 1 mg PO DAILY PRN anxiety #30 tabs 03/15/24 Unknown Rx quetiapine 50 mg tablet 50 mg PO QHS #30 tabs 03/15/24 Unknown Rx naproxen 500 mg tablet,delayed 500 mg PO BID PRN pain #30 tabs 04/20/24 Unknown Rx release (EC-Naproxen) oxycodone-acetaminophen 5 mg-325 1 tab PO Q6H PRN PRN Pain 3 days 04/22/24 Unknown Rx mg tablet #12 TABLETS prednisone 20 mg tablet 40 mg (2 x 20 mg) PO DAILY #12 04/22/24 Unknown Rx TABLETS Allergy/AdvReac Type Severity Reaction Status Date / Time shellfish derived Allergy Severe Anaphylaxis Verified 04/22/24 15:55 Sulfa (Sulfonamide Allergy Severe Hives Verified 04/22/24 15:55 Antibiotics) tree nut Allergy Severe Anaphylaxis Verified 04/22/24 15:55 adhesive Allergy NEEDS Verified 04/22/24 15:55 FOLLOW-UP amoxicillin trihydrate (From Allergy Hives Verified 04/22/24 15:55 Augmentin) Iodinated Contrast Media Allergy Swelling Verified 04/22/24 15:55 (DYEE) nitrofurantoin Allergy Hives Verified 04/22/24 15:55 macrocrystalline (From Macrodantin) phenazopyridine (From Allergy Hives Verified 04/22/24 15:55 Pyridium) potassium clavulanate (From Allergy Hives Verified 04/22/24 15:55 Augmentin) sulfamethoxazole (From Allergy Hives Verified 04/22/24 15:55 Bactrim) trimethoprim (From Bactrim) Allergy Hives Verified 04/22/24 15:55 Family History Father Alcoholism CVA (cerebral vascular accident) Mother Cancer Melanoma Grandfather Cancer Grandmother Cancer Other Arthritis Autoimmune disorder Breast cancer Colon cancer Depression Heart disease Hypertension Liver disease Myocardial infarction Ovarian cancer Psychiatric care Thyroid disorder Uterine cancer ulcer disease Surgical History History of appendectomy History of oophorectomy History of exploratory laparotomy History of tonsillectomy Hx of hysterectomy Hx of hernia repair Hx of section Social History household members: none Smoking Status: Current every day smoker tobacco type: cigarettes alcohol intake: never substance use type: does not use ROS ROS ED Constitutional Constitutional ED: Denies chills, fever(s) or sweats Eyes Eyes: Denies change in vision ENT ENT ED: Denies dysphagia or sore throat Cardiovascular Cardiovascular: Denies chest pain, leg edema, palpitations or racing heartbeat Respiratory/Chest Respiratory/Chest: Denies cough, dyspnea or dyspnea on exertion Gastrointestinal Gastrointestinal: Denies abdominal pain, diarrhea, nausea or vomiting Genitourinary Genitourinary ED: Denies dysuria, hematuria or urinary frequency Musculoskeletal Musculoskeletal: Reports extremity pain; Denies back pain or neck pain Integumentary Denies rash or wounds Neurologic Neurologic: Denies headache(s), paresthesias or weakness EXAM Physical Exam Const Vital Signs: 04/22/24 15:56 04/22/24 16:59 Temperature 97.6 F L 97 F L Temperature Source Temporal Pulse Rate 122 H 95 Respiratory Rate 18 19 H Blood Pressure 139/79 H 176/82 H Blood Pressure Mean 99 113 Pulse Ox 98 96 Oxygen Delivery Method Room Air Positive well nourished and well developed Constitutional Narrative: Nontoxic, uncomfortable. General Appearance ED: well developed HEENT Reports moist mucous membranes normocephalic and atraumatic Eyes EOMs intact bilaterally and conjunctivae normal General Eye ED: Yes normal appearance of both eyes Neck no lymphadenopathy and supple General: Negative for tenderness Chest Wall Chest: Negative for tenderness Resp normal respiratory effort and normal air movement Effort and Inspection: symmetric chest movement; Negative for respiratory distress Cardio regular rate, regular rhythm and no murmurs Peripheral Pulses: pulses 2+ throughout GI normal to inspection, nondistended, normoactive bowel sounds and non-tender Palpation: Negative for guarding or rebound tenderness present Back/Spine no CVA tenderness and no thoracic nor lumbar tenderness Back/Spine Narrative: Straight leg test negative bilaterally. Extremity Extremity Narrative: Right lower extremity: Negative logroll. Knee extensor mechanism intact. There was medial supra patellar swelling. No deformities. Negative varus and valgus. No leg tenderness soft compartments neuro vas intact distally. General Extremety ED: Yes tenderness; Negative for edema General Extremity: Negative for edema Neuro oriented x3 and no sensory deficits noted Sensorium / Orientation: awake and alert Skin no rashes or lesions noted and no wounds MDM MDM MDM Narrative Medical decision making narrative: Interventions / MDM: Differential diagnosis: Internal derangement right knee, sciatica Diagnosis considered but do not suspect: No cauda equina symptoms. My EKG interpretation: N/A Imaging independently reviewed and interpreted by myself: N/A External documents reviewed: N/A Test considered but not ordered:N/A ED course: Patient still has residual swelling of the knee states was more significant last couple days. She had increasing pain. There is been no new injuries. With her history of sudden pop and swelling concerns for ligamentous injury internally. She also has sciatica symptoms with radicular pain. She is not a diabetic. She started on oxycodone and prednisone. Knee immobilizer provided to help with comfort and stability. A walker to help with mobilization and stability. She does follow an orthopedist Dr. Llanos, she will call to see if her orthopedist will manage her injury being work-related. She has work restrictions from occupational health for sitting position at this time. She will continue her NSAIDs. All questions were answered. Re-evaluation: stable Disposition discussed with patient/family/significant other: Patient Case discussed with consulting clinician: N/A This note was generated with [employer] dictation software. It may contain incorrect words, spelling, and punctuation that were not noted in checking the note before signing. Discharge Plan Triage Chief Complaint: Lower Extremity Injury ED Provider: Jose Alberto Wen Dx/Rx/DC Orders Clinical Impression: Acute traumatic internal derangement of right knee, Right sided sciatica Instructions: ED Knee Pain of Uncertain Cause, ED Sciatica Prescriptions: New oxycodone-acetaminophen 5-325 mg tablet 1 tab PO Q6H PRN PRN (Reason: Pain) 3 Days Qty: 12 0RF prednisone 20 mg tablet 40 mg PO DAILY Qty: 12 0RF No Action buspirone 15 mg tablet See Rx Instructions .ROUTE .COMPLEX Qty: 60 2RF Dose Instruction: TAKE 1 TABLET BY MOUTH TWICE DAILY Rx Instructions: TAKE 1 TABLET BY MOUTH TWICE DAILY paroxetine HCl 30 mg tablet 30 mg PO DAILY 30 Days Qty: 30 2RF prazosin 1 mg capsule 1 mg PO QHS Qty: 30 2RF amlodipine 2.5 mg tablet 2.5 mg PO DAILY Qty: 60 0RF alprazolam 1 mg tablet 1 mg PO DAILY PRN (Reason: anxiety) Qty: 30 0RF quetiapine 50 mg tablet 50 mg PO QHS Qty: 30 2RF naproxen [EC-Naproxen] 500 mg tablet,delayed release (DR/EC) 500 mg PO BID PRN (Reason: pain) Qty: 30 0RF epinephrine [EpiPen 2-Tahir] 0.3 mg/0.3 mL auto-injector 0.3 mg IM Q4H PRN (Reason: anaphylaxis) Qty: 2 0RF ibuprofen 600 mg tablet 600 mg PO Q8H PRN PRN (Reason: pain) Qty: 16 0RF gabapentin 300 mg capsule See Rx Instructions PO .COMPLEX Qty: 150 2RF Rx Instructions: 300 mg PO qAM and qPM and 900 mg PO qHS pantoprazole [Protonix] 40 mg tablet,delayed release (DR/EC) 40 mg PO DAILY Qty: 30 1RF Primary Care Provider: Dilia Santos Referrals: Sukhdev Llanos MD [Med Staff - Active Staff] - 3-5 Days Dilia Santos D[facility]KER-C [Primary Care Provider] - Activity Restrictions/Additional Instructions: There is history likely of possible ligamentous injuries to internal knee. Reported x-ray from occupational health was negative. Knee immobilizer to help with comfort and pain. Use a walker for stability. Continue naproxen may use oxycodone as prescribed. Follow-up with your orthopedist Dr. Llanos, make sure the office aware work-related injury. Print Language: Kinyarwanda Disposition Disposition: Home, Self Care Discharge Date/Time: 04/22/24 16:59
[2024-04-22 16:59] VITALS: BP 176/82; PULSE 95; RESP 19; TEMP 36.1; O2SAT 96
== END 2024-04-22 16:59 | disposition home or self-care (01) ==
PROVIDERS: Emergency Provider Emergency Medicine; PCP Nurse Practitioner; Visit Provider Emergency Medicine
DX: M23.91 Unspecified internal derangement of right knee (principal); I10 Essential (primary) hypertension; E78.00 Pure hypercholesterolemia, unspecified; M54.31 Sciatica, right side; X50.0XXA Overexertion from strenuous movement or load, initial encounter; Y93.89 Activity, other specified; Y92.89 Other specified places as the place of occurrence of the external cause; Z79.899 Other long term (current) drug therapy; F41.8 Other specified anxiety disorders; K21.9 Gastro-esophageal reflux disease without esophagitis; Z90.49 Acquired absence of other specified parts of digestive tract; Z90.710 Acquired absence of both cervix and uterus; F17.210 Nicotine dependence, cigarettes, uncomplicated
CPT/HCPCS: 99283

== ENCOUNTER 2024-04-28 14:42 | Emergency (ER) | payer OTHER, MEDICAID, SELFPAY ==
[2024-04-28 14:43] VITALS: BP 132/85; PULSE 113; RESP 16; TEMP 36.2; O2SAT 99; BMI 31.7
--- NOTE | 2024-04-28 16:05 | ED.VIS.LOWEX ---
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 Has been using naproxen. Was seen in the clinic. Repleted and x-ray was negative. She has follow-up with them May 13. This is currently under Worker's Comp. claim. She denies any other prior knee history or knee surgery in the past. Today she was getting out of her shower her knee, locked up she fell landing on her right knee causing more pain. Denies other injuries. Chief Complaint: Lower Extremity Injury Informant: patient Occured/Mechanism Mechanism/Context: Yes injury and Yes blunt trauma Onset/Context/Timing Onset: Today and - (Fell on it today. Injured it 1 week ago at work.) Context: Sudden Onset Quality of Pain: Sharp Current Severity: Moderate Maximum Severity: Moderate Associated Symptoms Associated Symptoms: Negative for Parasthesia, Weakness or Loss of Funtion Narrative Narrative: 49-year-old female with right knee injury 8 days ago at work. No prior surgery. And then reinjured it today. And fell on it today. 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 Menopausal hot flushes Hyperlipidemia Anxiety and depression Rectal prolapse Anal fissure History of stress test Vaginal kushal Oral thrush Left shoulder pain Left shoulder tendinitis Cervical radiculopathy Contact dermatitis Depression Fatty liver High cholesterol Injury of back Restless legs Gastric reflux Smoker POWELL (nonalcoholic steatohepatitis) Hypertension Fibromyalgia History of pneumonia Lupus Liver disease Headache, migraine GI problem Arthritis Home Medications ?Medication ?Instructions ?Recorded ?Last Taken ?Type epinephrine 0.3 mg/0.3 mL 0.3 mg (0.3 mL) IM Q4H PRN 07/28/22 Unknown Rx injection, auto-injector (EpiPen anaphylaxis #2 ea 2-Tahir) ibuprofen 600 mg tablet 600 mg PO Q8H PRN PRN pain #16 09/26/22 Unknown Rx TABLETS gabapentin 300 mg capsule See Rx Instructions PO .COMPLEX 02/09/24 Unknown Rx #150 caps buspirone 15 mg tablet See Rx Instructions .Route 02/28/24 Unknown Rx .COMPLEX #60 tabs paroxetine HCl 30 mg tablet 30 mg PO DAILY 30 days #30 tabs 02/28/24 Unknown Rx prazosin 1 mg capsule 1 mg PO QHS #30 caps 02/28/24 Unknown Rx pantoprazole 40 mg tablet,delayed 40 mg PO DAILY #30 tabs 03/08/24 Unknown Rx release (Protonix) quetiapine 50 mg tablet 50 mg PO QHS #30 tabs 03/15/24 Unknown Rx naproxen 500 mg tablet,delayed 500 mg PO BID PRN pain #30 tabs 04/20/24 Unknown Rx release (EC-Naproxen) oxycodone-acetaminophen 5 mg-325 1 tab PO Q6H PRN PRN Pain 3 days 04/22/24 Unknown Rx mg tablet #12 TABLETS prednisone 20 mg tablet 40 mg (2 x 20 mg) PO DAILY #12 04/22/24 Unknown Rx TABLETS alprazolam 1 mg tablet 1 mg PO DAILY PRN anxiety #30 tabs 04/24/24 Unknown Rx amlodipine 2.5 mg tablet 2.5 mg PO DAILY #90 tabs 04/27/24 Unknown Rx Allergy/AdvReac Type Severity Reaction Status Date / Time shellfish derived Allergy Severe Anaphylaxis Verified 04/28/24 14:43 Sulfa (Sulfonamide Allergy Severe Hives Verified 04/28/24 14:43 Antibiotics) tree nut Allergy Severe Anaphylaxis Verified 04/28/24 14:43 adhesive Allergy NEEDS Verified 04/28/24 14:43 FOLLOW-UP amoxicillin trihydrate (From Allergy Hives Verified 04/28/24 14:43 Augmentin) Iodinated Contrast Media Allergy Swelling Verified 04/28/24 14:43 (DYEE) nitrofurantoin Allergy Hives Verified 04/28/24 14:43 macrocrystalline (From Macrodantin) phenazopyridine (From Allergy Hives Verified 04/28/24 14:43 Pyridium) potassium clavulanate (From Allergy Hives Verified 04/28/24 14:43 Augmentin) sulfamethoxazole (From Allergy Hives Verified 04/28/24 14:43 Bactrim) trimethoprim (From Bactrim) Allergy Hives Verified 04/28/24 14:43 Family History Father Alcoholism CVA (cerebral vascular accident) Mother Cancer Melanoma Grandfather Cancer Grandmother Cancer Other Arthritis Autoimmune disorder Breast cancer Colon cancer Depression Heart disease Hypertension Liver disease Myocardial infarction Ovarian cancer Psychiatric care Thyroid disorder Uterine cancer ulcer disease Surgical History History of appendectomy History of oophorectomy History of exploratory laparotomy History of tonsillectomy Hx of hysterectomy Hx of hernia repair Hx of section Social History household members: none Smoking Status: Current every day smoker tobacco type: cigarettes alcohol intake: never substance use type: does not use ROS ROS ED ROS Narrative Denies recent illness. Constitutional Constitutional ED: Denies chills or fever(s) Eyes Eyes: Denies blurry vision ENT ENT ED: Denies ear pain Cardiovascular Cardiovascular: Denies chest pain Respiratory/Chest Respiratory/Chest: Denies cough or dyspnea Gastrointestinal Gastrointestinal: Denies abdominal pain Genitourinary Genitourinary ED: Denies dysuria or hematuria Musculoskeletal Musculoskeletal: Denies arthralgias or back pain Integumentary Denies abscess or Abrasions Neurologic Neurologic: Denies headache(s) Psychiatric Psychiatric: Denies anxiety Endocrine Endocrinology: Denies polydipsia Hematologic/Lymphatic Hematologic/Lymphatic: Denies easy bleeding or easy bruising Allergic/Immunologic Allergic/Immunologic ED: Denies mouth swelling or tongue swelling EXAM Physical Exam Narrative Exam Narrative: Well-appearing 49-year-old female complaining of right knee pain. Tearful. H EENT exam unremarkable atraumatic. Neck nontender. Back nontender. Lungs clear to auscultation bilaterally. Heart regular rhythm rate about 110 no murmur. Chest wall and ribs nontender. Abdomen soft nontender. Moving all 4 extremities. Right hip, ankle and foot nontender. Normal DP pulse. Normal dorsi plantarflexion. She has mild swelling to her right knee. The small effusion. She does have diffuse tenderness. No bony deformity. She is able to do flexion extension. Her quadriceps patellar and infrapatellar tendon appear to be intact as do the MCL and LCL as do the ACL and PCL. No bony deformity. Const Vital Signs: 04/28/24 14:43 Temperature 97.1 F L Temperature Source Temporal Pulse Rate 113 H Respiratory Rate 16 Blood Pressure 132/85 H Blood Pressure Mean 100 Pulse Ox 99 Oxygen Delivery Method Room Air Positive well nourished and well developed; Negative for cachectic, contractures or unkempt General Appearance ED: well developed and NAD; Negative for unkempt, cachectic or contractures Nutritional Appearance: Negative for cachectic HEENT Reports moist mucous membranes normocephalic and atraumatic; Negative for trauma or tenderness Eyes General Eye ED: Negative for other Neck full ROM and supple Thyroid: Negative for tender Lymph Lymphatic: Negative for other Chest Wall inspection of chest normal and palpation of chest normal Chest: Negative for other Resp normal respiratory effort, no retractions and clear to auscultation bilaterally Effort and Inspection: Negative for pain with movement Auscultation: Negative for rales, rhonchi, wheezes or diminished lung sounds Cardio regular rhythm, S1 normal heart sound, S2 normal heart sound and no murmurs; Negative for regular rate Rate: tachycardic GI non-tender, non-distended and no masses Inspection: Negative for abdominal distention Auscultation: normoactive bowel sounds Palpation: soft; Negative for tender, guarding or rebound tenderness present Back/Spine no CVA tenderness General Back: Negative for CVA tenderness Cervical Spine: Negative for cervical spine tenderness Thoracic Spine / Upper Back: Negative for thoracic spinal tenderness Lumbar Spine / Lower Back: Negative for lumbar spinal tenderness Extremity Negative for normal to inspection or full ROM Extremity Narrative: Right knee mild swelling. No gross bony deformity. No redness or warmth. Able to do flexion 180 degrees of extension but flexion is uncomfortable. Ligaments and tendons appear to be intact. Small effusion. General Extremety ED: Yes weight-bearing difficulty; Negative for cyanosis General Extremity: weight-bearing difficulty; Negative for cyanosis Neuro oriented x3, CN's II-XII intact bilaterally, moves all extremities and no sensory deficits noted Sensorium / Orientation: alert, oriented to person, oriented to place and oriented to time; Negative for orientation impaired, confused, lethargic or stuporous Motor Exam: strength 5/5 throughout Psych mental status grossly normal Appearance: Negative for unkempt Skin no wounds Lesions: no lesions Trauma: Negative for abrasion, laceration or puncture MDM MDM MDM Narrative Medical decision making narrative: Presenting female right knee injury at work a week ago and then again today with a blunt injury. We given [place] for pain. X-ray being obtained. History & Record Review Discussion w/independent historian: Patient Additional record(s) reviewed:: Prior inpatient record, Prior outpatient record, Prior ED visit and Prior labs Radiography Diagnostic Testing: Knee x-ray, 3 views, interpreted by myself shows no bony abnormality. Small effusion. No fracture or dislocation. Discharge Plan Triage Chief Complaint: Lower Extremity Injury ED Provider: Kei Hernandes Dx/Rx/DC Orders Clinical Impression: Knee sprain Instructions: ED Knee Sprain Prescriptions: No Action buspirone 15 mg tablet See Rx Instructions .ROUTE .COMPLEX Qty: 60 2RF Dose Instruction: TAKE 1 TABLET BY MOUTH TWICE DAILY Rx Instructions: TAKE 1 TABLET BY MOUTH TWICE DAILY paroxetine HCl 30 mg tablet 30 mg PO DAILY 30 Days Qty: 30 2RF prazosin 1 mg capsule 1 mg PO QHS Qty: 30 2RF quetiapine 50 mg tablet 50 mg PO QHS Qty: 30 2RF naproxen [EC-Naproxen] 500 mg tablet,delayed release (DR/EC) 500 mg PO BID PRN (Reason: pain) Qty: 30 0RF epinephrine [EpiPen 2-Tahir] 0.3 mg/0.3 mL auto-injector 0.3 mg IM Q4H PRN (Reason: anaphylaxis) Qty: 2 0RF ibuprofen 600 mg tablet 600 mg PO Q8H PRN PRN (Reason: pain) Qty: 16 0RF oxycodone-acetaminophen 5-325 mg tablet 1 tab PO Q6H PRN PRN (Reason: Pain) 3 Days Qty: 12 0RF prednisone 20 mg tablet 40 mg PO DAILY Qty: 12 0RF gabapentin 300 mg capsule See Rx Instructions PO .COMPLEX Qty: 150 2RF Rx Instructions: 300 mg PO qAM and qPM and 900 mg PO qHS pantoprazole [Protonix] 40 mg tablet,delayed release (DR/EC) 40 mg PO DAILY Qty: 30 1RF alprazolam 1 mg tablet 1 mg PO DAILY PRN (Reason: anxiety) Qty: 30 0RF amlodipine 2.5 mg tablet 2.5 mg PO DAILY Qty: 90 1RF Primary Care Provider: Dilia Santos Referrals: Bill Powell MD [Med Staff - Active Staff] - 1 Week if not improving Dilia Santos NP-C [Primary Care Provider] - Activity Restrictions/Additional Instructions: Ice to the knee to decrease pain and swelling. Motrin for pain and inflammation and Tylenol for pain. Follow-up with a local orthopedic physician for further evaluation. Print Language: Serbian Disposition Disposition: Home, Self Care
--- NOTE | 2024-04-28 16:15 | RAD_ITS ---
INDICATION: FALL, PAIN EXAMINATION/TECHNIQUE: X-RAY - RIGHT XR Knee 3 Views 3 VIEWS COMPARISON: Right knee x-rays 04/20/2024 FINDINGS: BONES: No fracture demonstrated. JOINTS: No dislocation. SOFT TISSUES: Small joint effusion. RAD/Knee 3 Views IMPRESSION: No evidence of fracture. Small joint effusion. Electronically Signed: Lynn Oliver MD at 16:27 EDT ,
[2024-04-28] MEDS: HYDROcodone Bitartrate/Apap 5/325 Tablet PO (16:34)
[2024-04-28 16:36] VITALS: BP 143/88; PULSE 82; RESP 16; TEMP 36.6; O2SAT 99
== END 2024-04-28 16:36 | disposition home or self-care (01) ==
PROVIDERS: Emergency Provider Emergency Medicine; PCP Nurse Practitioner; Visit Provider Emergency Medicine
DX: S83.91XA Sprain of unspecified site of right knee, initial encounter (principal); I10 Essential (primary) hypertension; E78.00 Pure hypercholesterolemia, unspecified; X58.XXXA Exposure to other specified factors, initial encounter; Y99.0 Civilian activity done for income or pay; Y92.89 Other specified places as the place of occurrence of the external cause; F41.8 Other specified anxiety disorders; Z79.899 Other long term (current) drug therapy; K21.9 Gastro-esophageal reflux disease without esophagitis; Z90.49 Acquired absence of other specified parts of digestive tract; Z90.710 Acquired absence of both cervix and uterus
CPT/HCPCS: 73562; 99282

== ENCOUNTER → 2024-05-07 | Outpatient (CLI) | payer OTHER, SELFPAY ==
--- NOTE | 2024-05-07 10:15 | MRI_ITS ---
STUDY: MRI RIGHT KNEE REASON FOR EXAM: Female, 49 years old. Right knee injury x 3 weeks. Sharp pains radiates down right leg. No surgery. TECHNIQUE: Standardized fat and water weighted pulse sequences were obtained in all 3 orthogonal planes. COMPARISON: Right knee radiographs dated 04/28/2024. FINDINGS: Normal medial meniscus. Normal hyaline cartilage of the medial femorotibial compartment. Normal medial femoral condyle and tibial plateau. There is a minimal grade I MCL sprain with periligamentous edema (coronal T2 series 8 images 16-18). Normal distal semimembranosus, gracilis and semitendinosus tendons. Normal lateral meniscus. Normal hyaline cartilage of the lateral femorotibial compartment. Normal lateral femoral condyle and tibial plateau. Normal proximal tibiofibular articulation. Normal lateral collateral (fibular) ligament. Normal popliteus tendon. Normal biceps femoris tendon. Normal anterior cruciate ligament (ACL). Normal posterior cruciate ligament (PCL). Normal congruent patellofemoral articulation. Normal hyaline cartilage of the patellofemoral compartment. Normal medial and lateral patellar retinaculum. Normal quadriceps tendon. Normal patellar tendon. Normal Hoffa''s fat pad. There is a moderate volume joint effusion. There is no popliteal cyst. There is mild subcutaneous soft tissue edema along the anteromedial aspect of the knee. The otherwise visualized osseous structures are unremarkable. MRI/Lower Ext Joint Only (Routine) IMPRESSION: Minimal grade I MCL sprain. Moderate joint effusion. Mild subcutaneous soft tissue edema along the anteromedial aspect of the knee. No discrete meniscal tear. Electronically Signed: Rico Sánchez MD at 14:49 EDT ,
== END | disposition home or self-care (01) ==
LOC: MRI 10:13
PROVIDERS: PCP Nurse Practitioner; Referring Provider Orthopaedic Surgery Sports Medicine; Visit Provider Orthopaedic Surgery Sports Medicine
DX: S83.91XA Sprain of unspecified site of right knee, initial encounter (principal)
CPT/HCPCS: 73721

== ENCOUNTER 2024-06-12 15:48 | Emergency (ER) | payer MEDICAID, SELFPAY ==
[2024-06-12 15:49] VITALS: BP 165/87; PULSE 126; RESP 15; TEMP 36.7; O2SAT 97; BMI 31.6
--- NOTE | 2024-06-12 16:44 | EDS_ITS ---
HPI History of Present Illness Chief Complaint: Dental Informant: patient Narrative Narrative: 49-year-old female presenting to the emergency room with dental pain. Patient states that she has been having significant pain in her posterior molar. She notes some swelling and tenderness. She states this time it actually hurts. She denies any fevers. She has been unsuccessful in securing immediate dental evaluation but states she has 1 upcoming but not for several weeks. 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 Menopausal hot flushes Hyperlipidemia Anxiety and depression Rectal prolapse Anal fissure History of stress test Vaginal kushal Oral thrush Left shoulder pain Left shoulder tendinitis Cervical radiculopathy Contact dermatitis Depression Fatty liver High cholesterol Injury of back Restless legs Gastric reflux Smoker POWELL (nonalcoholic steatohepatitis) Hypertension Fibromyalgia History of pneumonia Lupus Liver disease Headache, migraine GI problem Arthritis Home Medications ?Medication ?Instructions ?Recorded ?Last Taken ?Type epinephrine 0.3 mg/0.3 mL 0.3 mg (0.3 mL) IM Q4H PRN 07/28/22 Unknown Rx injection, auto-injector (EpiPen anaphylaxis #2 ea 2-Tahir) ibuprofen 600 mg tablet 600 mg PO Q8H PRN PRN pain #16 09/26/22 Unknown Rx TABLETS prazosin 1 mg capsule 1 mg PO QHS #30 caps 02/28/24 Unknown Rx naproxen 500 mg tablet,delayed 500 mg PO BID PRN pain #30 tabs 04/20/24 Unknown Rx release (EC-Naproxen) oxycodone-acetaminophen 5 mg-325 1 tab PO Q6H PRN PRN Pain 3 days 04/22/24 Unknown Rx mg tablet #12 TABLETS prednisone 20 mg tablet 40 mg (2 x 20 mg) PO DAILY #12 04/22/24 Unknown Rx TABLETS amlodipine 2.5 mg tablet 2.5 mg PO DAILY #90 tabs 04/27/24 Unknown Rx pantoprazole 40 mg tablet,delayed 40 mg PO DAILY #30 tabs 05/10/24 Unknown Rx release (Protonix) gabapentin 300 mg capsule See Rx Instructions PO .COMPLEX 05/15/24 Unknown Rx #150 caps alprazolam 1 mg tablet 1 mg PO DAILY PRN anxiety #30 tabs 06/05/24 Unknown Rx buspirone 15 mg tablet See Rx Instructions .Route 06/05/24 Unknown Rx .COMPLEX #60 tabs cariprazine 1.5 mg capsule 1.5 mg PO DAILY #30 caps 06/05/24 Unknown Rx paroxetine HCl 30 mg tablet 30 mg PO DAILY 30 days #30 tabs 06/05/24 Unknown Rx clindamycin HCl 300 mg capsule 300 mg PO Q6H #40 CAPSULES 06/12/24 Unknown Rx (Cleocin HCl) ibuprofen 600 mg tablet 600 mg PO Q6H PRN PRN pain #20 06/12/24 Unknown Rx TABLETS propranolol 10 mg tablet 10 mg PO BID PRN akathisia #60 tabs 06/12/24 Unknown Rx tramadol 50 mg tablet 50 mg PO Q6H PRN PRN Pain 3 days 06/12/24 Unknown Rx #12 tabs Allergy/AdvReac Type Severity Reaction Status Date / Time shellfish derived Allergy Severe Anaphylaxis Verified 06/08/24 08:48 Sulfa (Sulfonamide Allergy Severe Hives Verified 06/08/24 08:48 Antibiotics) tree nut Allergy Severe Anaphylaxis Verified 06/08/24 08:48 adhesive Allergy NEEDS Verified 06/08/24 08:48 FOLLOW-UP amoxicillin trihydrate (From Allergy Hives Verified 06/08/24 08:48 Augmentin) Iodinated Contrast Media Allergy Swelling Verified 06/08/24 08:48 (DYEE) nitrofurantoin Allergy Hives Verified 06/08/24 08:48 macrocrystalline (From Macrodantin) phenazopyridine (From Allergy Hives Verified 06/08/24 08:48 Pyridium) potassium clavulanate (From Allergy Hives Verified 06/08/24 08:48 Augmentin) sulfamethoxazole (From Allergy Hives Verified 06/08/24 08:48 Bactrim) trimethoprim (From Bactrim) Allergy Hives Verified 06/08/24 08:48 Family History Father Alcoholism CVA (cerebral vascular accident) Mother Cancer Melanoma Grandfather Cancer Grandmother Cancer Other Arthritis Autoimmune disorder Breast cancer Colon cancer Depression Heart disease Hypertension Liver disease Myocardial infarction Ovarian cancer Psychiatric care Thyroid disorder Uterine cancer ulcer disease Surgical History History of appendectomy History of oophorectomy History of exploratory laparotomy History of tonsillectomy Hx of hysterectomy Hx of hernia repair Hx of section Social History household members: none Smoking Status: Current every day smoker tobacco type: cigarettes alcohol intake: never substance use type: does not use ROS ROS ED Constitutional Constitutional ED: Denies chills, fever(s) or weight loss Eyes Eyes: Denies change in vision or diplopia ENT ENT ED: Reports other Details: See history of present illness ; Denies ear pain, rhinorrhea or sore throat Cardiovascular Cardiovascular: Denies chest pain, orthopnea, palpitations or racing heartbeat Respiratory/Chest Respiratory/Chest: Denies cough, dyspnea or orthopnea Gastrointestinal Gastrointestinal: Denies abdominal pain, diarrhea, nausea or vomiting Genitourinary Genitourinary ED: Denies dysuria, hematuria or urinary frequency Musculoskeletal Musculoskeletal: Denies arthralgias or myalgias Integumentary Denies abscess or rash Neurologic Neurologic: Denies headache(s) or weakness Psychiatric Psychiatric: Denies anxiety, depression, suicidal ideation or suicidal thoughts Endocrine Endocrinology: Denies polydipsia, polyphagia or polyuria Allergic/Immunologic Allergic/Immunologic ED: Denies mouth swelling, tongue swelling or urticaria EXAM Physical Exam Const Vital Signs: 06/12/24 15:49 Temperature 98.1 F Temperature Source Oral Pulse Rate 126 H Respiratory Rate 15 Blood Pressure 165/87 H Blood Pressure Mean 113 Pulse Ox 97 Oxygen Delivery Method Room Air Positive well nourished and well developed General Appearance ED: well developed HEENT Reports normocephalic, head/scalp atraumatic and moist mucous membranes HEENT Narrative: Right posterior most molar demonstrates swelling along the gumline but no focal abscess. Tenderness and tooth percussion. There is obvious dental caries. No trismus. No floor the mouth swelling. No overlying facial swelling or erythema. Eyes PERRL and EOMs intact bilaterally Neck no lymphadenopathy, supple and no JVD Resp normal respiratory effort and clear to auscultation bilaterally Cardio regular rate, regular rhythm and no murmurs GI normal to inspection, nondistended, normoactive bowel sounds and non-tender Palpation: soft Back/Spine no CVA tenderness and normal ROM Extremity normal to inspection General Extremety ED: Negative for edema General Extremity: Negative for edema Neuro oriented x3 and CN's II-XII intact bilaterally Sensorium / Orientation: alert Motor Exam: strength 5/5 throughout Psych mental status grossly normal Mood & Affect: Negative for depressed or tearful Skin no rashes or lesions noted and no wounds MDM MDM MDM Narrative Medical decision making narrative: Differential diagnosis includes but not limited to ANUG gingivitis Maximino's angina dental abscess dental caries malingering Patient to be started on antibiotics and I can write for some pain medication. I did do an [facility] report. Patient utilizes the emergency department frequently for pain related complaints. I wrote for a short course of Ultram. Would recommend continuing to call around to dental clinics to see when she can get in earliest. History & Record Review Discussion w/independent historian: Patient Discharge Plan Triage Chief Complaint: Dental ED Provider: Casey Banuelos Dx/Rx/DC Orders Clinical Impression: Pain, dental, Dental cavity Instructions: ED Dental Pain Prescriptions: New clindamycin HCl [Cleocin HCl] 300 mg capsule 300 mg PO Q6H Qty: 40 0RF ibuprofen 600 mg tablet 600 mg PO Q6H PRN PRN (Reason: pain) Qty: 20 0RF tramadol 50 mg tablet 50 mg PO Q6H PRN PRN (Reason: Pain) 3 Days Qty: 12 0RF No Action prazosin 1 mg capsule 1 mg PO QHS Qty: 30 2RF cariprazine 1.5 mg capsule 1.5 mg PO DAILY Qty: 30 1RF buspirone 15 mg tablet See Rx Instructions .ROUTE .COMPLEX Qty: 60 2RF Dose Instruction: TAKE 1 TABLET BY MOUTH TWICE DAILY Rx Instructions: TAKE 1 TABLET BY MOUTH TWICE DAILY paroxetine HCl 30 mg tablet 30 mg PO DAILY 30 Days Qty: 30 2RF alprazolam 1 mg tablet 1 mg PO DAILY PRN (Reason: anxiety) Qty: 30 0RF naproxen [EC-Naproxen] 500 mg tablet,delayed release (DR/EC) 500 mg PO BID PRN (Reason: pain) Qty: 30 0RF epinephrine [EpiPen 2-Tahir] 0.3 mg/0.3 mL auto-injector 0.3 mg IM Q4H PRN (Reason: anaphylaxis) Qty: 2 0RF ibuprofen 600 mg tablet 600 mg PO Q8H PRN PRN (Reason: pain) Qty: 16 0RF oxycodone-acetaminophen 5-325 mg tablet 1 tab PO Q6H PRN PRN (Reason: Pain) 3 Days Qty: 12 0RF prednisone 20 mg tablet 40 mg PO DAILY Qty: 12 0RF amlodipine 2.5 mg tablet 2.5 mg PO DAILY Qty: 90 1RF pantoprazole [Protonix] 40 mg tablet,delayed release (DR/EC) 40 mg PO DAILY Qty: 30 1RF gabapentin 300 mg capsule See Rx Instructions PO .COMPLEX Qty: 150 2RF Rx Instructions: 300 mg PO qAM and qPM and 900 mg PO qHS propranolol 10 mg tablet 10 mg PO BID PRN (Reason: akathisia) Qty: 60 0RF Primary Care Provider: Dilia Santos Referrals: Dilia Santos, SURGICAL TERRITORY MANAGER-C [Primary Care Provider] - Print Language: [place] Disposition Disposition: Home, Self Care Discharge Date/Time: 06/12/24 16:26
== END 2024-06-12 16:26 | disposition home or self-care (01) ==
LOC: ED 16:12
PROVIDERS: Emergency Provider Emergency Medicine; PCP Nurse Practitioner; Visit Provider Emergency Medicine
DX: K08.89 Other specified disorders of teeth and supporting structures (principal); K02.9 Dental caries, unspecified; I10 Essential (primary) hypertension; E78.00 Pure hypercholesterolemia, unspecified; F17.210 Nicotine dependence, cigarettes, uncomplicated; Z79.899 Other long term (current) drug therapy
CPT/HCPCS: 99282

== ENCOUNTER 2024-08-24 12:53 | Day surgery (SDC) | payer MEDICAID, SELFPAY ==
[2024-08-14 10:08] LABS: Vitamin D,25 Hydroxy 20.1 ng/mL
[2024-08-14 10:10] LABS: Hemoglobin A1c 5.5 % (3.8-5.6)
[2024-08-15 20:07] LABS: Cotinine Screen Urine Positive ng/mL (Cutoff=300)
--- NOTE | 2024-08-17 08:33 | PAT.ANESEVAL ---
Pre-Assessment Diagnosis/Proposed Procedure Planned Operative Procedure(s): (R) Destruction of benign lesion one through fourteen, Destruction of benign lesion + fifteen with surgical skin graft site prep and application of skin graft substitute. 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 When Was Last Pacemaker Check QUESTION #4 FULL TEXT: You/Your Family Experience fever (hyperthermia) with Anesthesia Last Oral Intake Last Oral intake: Last Oral Intake NPO since Meds taken in AM with sips of water? Meds patient instructed to take am of surgery PONV PONV - crossbow maker: PONV - crossbow maker Female Yes 08/16/24 10:36 HX of Motion Sickness No 08/16/24 10:36 HX of N/V After Surgery Yes 08/16/24 10:36 Non-Smoker No 08/16/24 10:36 Duration of Surgery greater Yes 08/16/24 10:36 than 60 minutes Number of Risk Factors 3 08/16/24 10:36 PONV Score Moderate Risk 08/16/24 10:36 Height & Weight Height & Weight: Anesthesia: Height & Weight Height 5 ft 4 in 06/12/24 15:49 Respiratory Assessment Respiratory Assessment - crossbow maker: Respiratory Tract Infection Hx - crossbow maker Hx Respiratory Tract Infection No 08/16/24 10:36 STOP Sleep Apnea STOP Sleep Apnea - crossbow maker: STOP Sleep Apnea - crossbow maker Hx Hypertension Yes: CONTROLLED WITH MED 08/16/24 10:36 Hx Sleep Apnea No 08/16/24 10:36 CPAP No 04/20/24 14:32 BIPAP No 04/20/24 14:32 Do you snore loudly (louder Yes 08/16/24 10:36 than talking or can be heard Do you often feel tired/ No 08/16/24 10:36 fatigued/ sleepy during daytime? Has anyone observed you stop No 08/16/24 10:36 breathing during sleep? STOP Results Positive 08/16/24 10:36 QUESTION #5 FULL TEXT : Do you snore loudly (louder than talking or can be heard through closed doors)? 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 Specify any problems Hx of Preganancy in last 3 N/A 08/16/24 10:36 Months Nurse Filling Out Transfusion NBUCHER 08/16/24 10:36 & Questions: Date: 08/16/24 08/16/24 10:36 Time: 10:38 08/16/24 10:36 Patient unable to answer at this time (ie. confused, unrespo /Reproduction History /Reproductive History - crossbow maker: /Reproductive Hx- crossbow maker Hx Now No 08/16/24 10:36 Gestational Age (in weeks): EDC: Hx Hx Para Hx Section SAB No 08/16/24 10:36 [facility] Medical History (Updated 08/16/24 @ 10:44 by Bridget Drake) Wears glasses Anxiety Open wound History of hiatal hernia GERD (gastroesophageal reflux disease) History of echocardiogram Blurred vision, right eye Allergic dermatitis Impingement of left shoulder PTSD (post-traumatic stress disorder) Left carpal tunnel syndrome MDD (major depressive disorder) Panic disorder Left tennis elbow Physical exam, pre-employment 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 Menopausal hot flushes Hyperlipidemia Anxiety and depression Rectal prolapse Anal fissure Vaginal kushal Oral thrush Left shoulder pain Left shoulder tendinitis Cervical radiculopathy Contact dermatitis Depression Fatty liver High cholesterol Injury of back Restless legs Gastric reflux Smoker POWELL (nonalcoholic steatohepatitis) Hypertension Fibromyalgia History of pneumonia Lupus Liver disease Headache, migraine GI problem Arthritis Home Medications ?Medication ?Instructions ?Recorded ?Last Taken ?Type epinephrine 0.3 mg/0.3 mL 0.3 mg (0.3 mL) IM Q4H PRN 07/28/22 Unknown Rx injection, auto-injector (EpiPen anaphylaxis #2 ea 2-Tahir) ibuprofen 600 mg tablet 600 mg PO Q8H PRN PRN pain #16 09/26/22 Unknown Rx TABLETS prazosin 1 mg capsule 1 mg PO QHS #30 caps 02/28/24 Unknown Rx naproxen 500 mg tablet,delayed 500 mg PO BID PRN pain #30 tabs 04/20/24 Unknown Rx release (EC-Naproxen) pantoprazole 40 mg tablet,delayed 40 mg PO DAILY #90 tabs 07/11/24 Unknown Rx release (Protonix) alprazolam 1 mg tablet 1 mg PO DAILY PRN anxiety #30 tabs 08/08/24 Unknown Rx buspirone 15 mg tablet See Rx Instructions .Route 08/08/24 Unknown Rx .COMPLEX #60 tabs cariprazine 1.5 mg capsule 1.5 mg PO DAILY #30 caps 08/08/24 Unknown Rx gabapentin 300 mg capsule See Rx Instructions PO .COMPLEX 08/08/24 Unknown Rx #150 caps paroxetine HCl 30 mg tablet 30 mg PO DAILY 30 days #30 tabs 08/08/24 Unknown Rx propranolol 10 mg tablet 10 mg PO BID PRN akathisia #60 tabs 08/08/24 Unknown Rx amlodipine 2.5 mg tablet 2.5 mg PO DAILY #90 tabs 08/15/24 Unknown Rx Allergy/AdvReac Type Severity Reaction Status Date / Time shellfish derived Allergy Severe Anaphylaxis Verified 08/16/24 10:33 Sulfa (Sulfonamide Allergy Severe Hives Verified 08/16/24 10:33 Antibiotics) tree nut Allergy Severe Anaphylaxis Verified 08/16/24 10:33 adhesive Allergy NEEDS Verified 08/16/24 10:33 FOLLOW-UP amoxicillin trihydrate (From Allergy Hives Verified 08/16/24 10:33 Augmentin) Iodinated Contrast Media Allergy Swelling Verified 08/16/24 10:33 (DYEE) nitrofurantoin Allergy Hives Verified 08/16/24 10:33 macrocrystalline (From Macrodantin) phenazopyridine (From Allergy Hives Verified 08/16/24 10:33 Pyridium) potassium clavulanate (From Allergy Hives Verified 08/16/24 10:33 Augmentin) sulfamethoxazole (From Allergy Hives Verified 08/16/24 10:33 Bactrim) trimethoprim (From Bactrim) Allergy Hives Verified 08/16/24 10:33 Acrylic Acid and Acrylates AdvReac Severe Other Verified 08/16/24 10:33 (steri-strips (acrylate)) Family History Father Alcoholism CVA (cerebral vascular accident) Mother Cancer Melanoma Grandfather Cancer Grandmother Cancer Other Arthritis Autoimmune disorder Breast cancer Colon cancer Depression Heart disease Hypertension Liver disease Myocardial infarction Ovarian cancer Psychiatric care Thyroid disorder Uterine cancer ulcer disease Surgical History (Updated 08/16/24 @ 10:44 by Bridget Drake) History of colonoscopy History of esophagogastroduodenoscopy (EGD) History of appendectomy History of oophorectomy History of exploratory laparotomy History of tonsillectomy Hx of hysterectomy Hx of hernia repair Hx of section Social History household members: none Smoking Status: Current every day smoker tobacco type: cigarettes alcohol intake: never substance use type: does not use Audit: Pertinent Findings Pertinent Findings EKG Perinent findings: 2016 normal EKG rate 96 bpm Echo (EF%) pertinent findings: EF 70% - 04/17/2023 Recommendation Anesthesia Recommendation Anesthesia recommendation: OPTIMIZED for anesthesia
[2024-08-24] VITALS (7 sets, daily range): BP systolic 117–132; BP diastolic 73–88; PULSE 90–109; RESP 16–18; TEMP 36.2–36.4; O2SAT 93–96; BMI 31.4
[2024-08-24] MEDS: 0.9% Normal Saline (1000mL) 1,000 ML 15 ML IV (13:28)
--- NOTE | 2024-08-24 13:33 | PRE.ANES_ITS ---
ASA Classification* ASA Classification ASA Classification: 2 Assessment & Plan Anesthesia* Anesthesia Assessment Anesthesia Assessment: Discussed sedation and/or anesthesia options, risks, benefits, and alternatives with patient/parents/legal guardian/POA. Questions invited. The patient/parents/legal guardian/POA seems to understand and agrees to proceed with anesthesia plan. Reviewed the physical assessment, medical history, allergy history and patient home medications list prior to surgery/procedure/anesthetic and documented any changes. Performed airway and anesthesia risk assessments. Anesthesia Type Anesthesia Type: General and Block Anesthesia Focused Assessment* Temperature: 97.4 F Pulse Rate: 109 Blood Pressure: 132/88 Respiratory Rate: 16 Pulse Ox: 96 Airway Assessment Mouth opens: >3 cm Mallampati Score: II Focused Labs Anesthesia Preop lab: CBC WBC 8.8 K/mm3 (4.4-11.0) 02/04/24 17:15 RBC 4.79 M/mm3 (4.2-5.4) 02/04/24 17:15 Hgb 15.2 g/dL (12.0-15.0) H 02/04/24 17:15 Hct 45.4 % (37-47) 02/04/24 17:15 Plt Count 234 K/mm3 (150-450) 02/04/24 17:15 CHEMISTRY Potassium 3.9 mmol/L (3.5-5.1) 02/04/24 17:15 Sodium 139 mmol/L (136-145) 02/04/24 17:15 Phosphorus 3.0 mg/dL (2.5-4.9) 04/26/22 11:35 BUN 11 mg/dL (7-18) 02/04/24 17:15 Creatinine 0.96 mg/dL (0.55-1.02) 02/04/24 17:15 Glucose 86 mg/dL (74-106) 02/04/24 17:15 POC Glucose 101 mg/dL (74-106) 04/27/23 16:02 TSH 2.83 uIU/mL (0.358-3.74) 02/04/24 17:15 COAG PT 13.1 SECONDS (11.7-14.9) 04/27/23 16:00 Urine Test Negative Negative 03/02/23 16:45 Tst Clinic Negative 03/17/21 06:36 Pre-Assessment Diagnosis/Proposed Procedure Planned Operative Procedure(s): (R) Destruction of benign lesion one through fou rteen, Destruction of benign lesion + fifteen with surgical skin graft site prep and application of skin graft substitute. Anesthesia History Anesthesia History - social media manager: Anesthesia History - social media manager Hx Hospitalization No 08/16/24 10:36 Any Problems With Anesthesia Yes: PONV 08/16/24 10:36 Cholinesterase deficiency No 08/16/24 10:36 You/Your Family Experience No 08/16/24 10:36 fever (hyperthermia) with Relationship Recent Exposure to Contagious No 08/24/24 13:17 Disease Does patient have nerve No 08/16/24 10:36 stimulator Patient instructed to have device shut off --Does patient have Pacemaker No 08/24/24 13:17 or ICD? When Was Last Pacemaker Check QUESTION #4 FULL TEXT: You/Your Family Experience fever (hyperthermia) with Anesthesia Last Oral Intake Last Oral intake: Last Oral Intake NPO since 08:00 08/24/24 13:17 Meds taken in AM with sips of Yes 08/24/24 13:17 water? Meds patient instructed to take am of surgery PONV PONV - social media manager: PONV - social media manager Female Yes 08/16/24 10:36 HX of Motion Sickness No 08/16/24 10:36 HX of N/V After Surgery Yes 08/16/24 10:36 Non-Smoker No 08/16/24 10:36 Duration of Surgery greater Yes 08/16/24 10:36 than 60 minutes Number of Risk Factors 3 08/16/24 10:36 PONV Score Moderate Risk 08/16/24 10:36 Height & Weight Height & Weight: Anesthesia: Height & Weight Height 5 ft 4 in 08/24/24 13:17 Weight: 83 kg 08/24/24 13:17 Body Mass Index (BMI) 31.4 08/24/24 13:17 Respiratory Assessment Respiratory Assessment - social media manager: Respiratory Tract Infection Hx - social media manager Hx Respiratory Tract Infection No 08/16/24 10:36 STOP Sleep Apnea STOP Sleep Apnea - social media manager: STOP Sleep Apnea - social media manager Hx Hypertension Yes: CONTROLLED WITH MED 08/16/24 10:36 Hx Sleep Apnea No 08/16/24 10:36 CPAP No 04/20/24 14:32 BIPAP No 04/20/24 14:32 Do you snore loudly (louder Yes 08/16/24 10:36 than talking or can be heard Do you often feel tired/ No 08/16/24 10:36 fatigued/ sleepy during daytime? Has anyone observed you stop No 08/16/24 10:36 breathing during sleep? STOP Results Positive 08/16/24 10:36 QUESTION #5 FULL TEXT : Do you snore loudly (louder than talking or can be heard through closed doors)? Tobacco Use History Tobacco Use History - social media manager: Tobacco Use History - social media manager Tobacco Use Cigarettes 04/20/24 14:32 Smoking Status Current every day smoker 08/16/24 10:36 Hx Tobacco Use Yes 08/16/24 10:36 Years Smoking Packs Smoked per Day 0.5 08/16/24 10:36 Smoking Cessation Date was within the last 15 years Hx Smoking Cessation Date Hx Smoking Cessation No 08/16/24 10:36 Counseling Hematologic Medial History Hematologic Hx - social media manager: Hematologic Medical Hx - director of marketing communications Hx of Blood Transfusion No 08/16/24 10:36 Hx of Transfusion in last 3 No 08/16/24 10:36 Months Date of Last Transfusion (if within last 3 months) Ever experience any problems No 08/16/24 10:36 with transfusion(s)? Specify any problems Hx of Preganancy in last 3 N/A 08/16/24 10:36 Months Nurse Filling Out Transfusion NBUCHER 08/16/24 10:36 & Questions: Date: 08/16/24 08/16/24 10:36 Time: 10:38 08/16/24 10:36 Patient unable to answer at this time (ie. confused, unrespo /Reproduction History /Reproductive History - social media manager: /Reproductive Hx- social media manager Hx Now No 08/16/24 10:36 Gestational Age (in weeks): EDC: Hx Hx Para Hx Section SAB No 08/16/24 10:36 Active Medications Active Medications: Current Medications Generic Name Dose Route Start Last Admin Trade Name Freq PRN Reason Stop Dose Admin Clindamycin Phosphate 900 mg in 50 mls @ 75 mls/hr 08/24/24 14:30 Cleocin IV 08/24/24 15:09 PREOP ONE Sodium Chloride 1,000 mls @ 15 mls/hr 08/24/24 13:05 08/24/24 13:28 IV 08/30/24 02:24 15 mls/hr .Q48H LB Administration Protocol [facility] Medical History Wears glasses Anxiety Open wound History of hiatal hernia GERD (gastroesophageal reflux disease) History of echocardiogram Blurred vision, right eye Allergic dermatitis Impingement of left shoulder PTSD (post-traumatic stress disorder) Left carpal tunnel syndrome MDD (major depressive disorder) Panic disorder Left tennis elbow Physical exam, 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-employment 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 Menopausal hot flushes Hyperlipidemia Anxiety and depression Rectal prolapse Anal fissure Vaginal kushal Oral thrush Left shoulder pain Left shoulder tendinitis Cervical radiculopathy Contact dermatitis Depression Fatty liver High cholesterol Injury of back Restless legs Gastric reflux Smoker POWELL (nonalcoholic steatohepatitis) Hypertension Fibromyalgia History of pneumonia Lupus Liver disease Headache, migraine GI problem Arthritis Home Medications ?Medication ?Instructions ?Recorded ?Last Taken ?Type epinephrine 0.3 mg/0.3 mL 0.3 mg (0.3 mL) IM Q4H PRN 07/28/22 Unknown Rx injection, auto-injector (EpiPen anaphylaxis #2 ea 2-Tahir) ibuprofen 600 mg tablet 600 mg PO Q8H PRN PRN pain #16 09/26/22 Unknown Rx TABLETS prazosin 1 mg capsule 1 mg PO QHS #30 caps 02/28/24 Unknown Rx naproxen 500 mg tablet,delayed 500 mg PO BID PRN pain #30 tabs 04/20/24 Unknown Rx release (EC-Naproxen) pantoprazole 40 mg tablet,delayed 40 mg PO DAILY #90 tabs 07/11/24 08/24/24 Rx release (Protonix) alprazolam 1 mg tablet 1 mg PO DAILY PRN anxiety #30 tabs 08/08/24 08/24/24 Rx buspirone 15 mg tablet See Rx Instructions .Route 08/08/24 Unknown Rx .COMPLEX #60 tabs cariprazine 1.5 mg capsule 1.5 mg PO DAILY #30 caps 08/08/24 Unknown Rx gabapentin 300 mg capsule See Rx Instructions PO .COMPLEX 08/08/24 08/24/24 Rx #150 caps paroxetine HCl 30 mg tablet 30 mg PO DAILY 30 days #30 tabs 08/08/24 Unknown Rx propranolol 10 mg tablet 10 mg PO BID PRN akathisia #60 tabs 08/08/24 Unknown Rx amlodipine 2.5 mg tablet 2.5 mg PO DAILY #90 tabs 08/15/24 Unknown Rx Allergy/AdvReac Type Severity Reaction Status Date / Time shellfish derived Allergy Severe Anaphylaxis Verified 08/24/24 13:16 Sulfa (Sulfonamide Allergy Severe Hives Verified 08/24/24 13:16 Antibiotics) tree nut Allergy Severe Anaphylaxis Verified 08/24/24 13:16 adhesive Allergy NEEDS Verified 08/24/24 13:16 FOLLOW-UP amoxicillin trihydrate (From Allergy Hives Verified 08/24/24 13:16 Augmentin) Iodinated Contrast Media Allergy Swelling Verified 08/24/24 13:16 (DYEE) nitrofurantoin Allergy Hives Verified 08/24/24 13:16 macrocrystalline (From Macrodantin) phenazopyridine (From Allergy Hives Verified 08/24/24 13:16 Pyridium) potassium clavulanate (From Allergy Hives Verified 08/24/24 13:16 Augmentin) sulfamethoxazole (From Allergy Hives Verified 08/24/24 13:16 Bactrim) trimethoprim (From Bactrim) Allergy Hives Verified 08/24/24 13:16 Acrylic Acid and Acrylates AdvReac Severe Other Verified 08/24/24 13:16 (steri-strips (acrylate)) Family History Father Alcoholism CVA (cerebral vascular accident) Mother Cancer Melanoma Grandfather Cancer Grandmother Cancer Other Arthritis Autoimmune disorder Breast cancer Colon cancer Depression Heart disease Hypertension Liver disease Myocardial infarction Ovarian cancer Psychiatric care Thyroid disorder Uterine cancer ulcer disease Surgical History History of colonoscopy History of esophagogastroduodenoscopy (EGD) History of appendectomy History of oophorectomy History of exploratory laparotomy History of tonsillectomy Hx of hysterectomy Hx of hernia repair Hx of section Social History household members: none Smoking Status: Current every day smoker tobacco type: cigarettes alcohol intake: never substance use type: does not use Review of Systems (Anesthesia) ROS Narrative System reviewed and no additional complaints, except as documented.
--- NOTE | 2024-08-24 14:30 | WART_PTH ---
PATIENT: FELIX ARITA LOC: [facility] – [place] U#:[id number] AGE/SX: 49/F ROOM: RE08/24/[address]: Dr. Michael Madera DPM : 1975 BED: DIS: 08/24/2024 SPEC #: [id number] RECD: 08/24/24 17:49 STATUS: CRISTHIAN NAHID #: [id number] HERNÁN: 08/24/24 14:[address]: Michael Madera DEPT: SURGICAL PATHOLOGY RECD BY: Jordan Jimenez ENTERED: 08/27/24 09:29 SP TYPE: Wart RHEA DR: Dilia Santos, LION-Jovani Tissues: Epidermis Procedures: Surgery Specimen Level IV HEADER OPERATION: Destruction of benign lesion one through fourteen PRE-OP DIAGNOSIS: Right foot pain, plantar verruca right foot TISSUE SUBMITTED: Plantar wart right foot MICROSCOPIC DIAGNOSIS Plantar wart right foot, excision: Verruca vulgaris. 08/28/2024 MICROSCOPIC DESCRIPTION Slides are reviewed. GROSS DESCRIPTION Received in fixative is one container labeled with the patient's name and designated Plantar wart right foot. The specimen consists of a waite-white skin ellipse measuring 4.7 x 4.0cm and up to 0.5cm in thickness. Also present in the container is a piece of waite-white skin measuring 1.5 x 0.1cm and up to 0.4cm in thickness. The entire specimen is submitted in nine cassettes. Cassette 1 contains the detached piece of tissue. ALEKSANDR. 08/27/2024 TC:1 CPT:11750
--- NOTE | 2024-08-24 14:49 | OP.PCM_ITS ---
Problems Associated Problem List Diagnoses (1) Pain in right foot: (2) Plantar wart: Operative Report (Standard) Operative Information Date of Procedure: 08/24/24 Pre-Operative Diagnosis: 1. Pain, Right Foot 2. Plantar warts, Right Foot Post-Operative Diagnosis: 1. Pain, Right Foot 2. Plantar warts, Right Foot Surgery/Procedure Performed: 1. Destruction of benign skin lesion 1 through 14 2. Destruction of benign skin lesion +15 concrete pile driver operator: Yes Aerodynamics Engineer: Renny Hardin PGY2 Tasks completed by medical assisting program director: Opening and Removing tissue Type of Anesthesia: General and Local RN Documented Start/Stop Times: Operation Date: 08/24/24 14:30 Case Time Into Pre-Op 08/24/24 13:04 Anesthesia Start 08/24/24 15:06 Into Room 08/24/24 15:06 Procedure Start 08/24/24 15:22 Procedure End 08/24/24 15:38 Anesthesia End 08/24/24 15:42 Out of Room 08/24/24 15:42 Into Recovery 08/24/24 15:45 Into Phase II Recovery 08/24/24 16:00 Out of Recovery 08/24/24 16:00 Out of Phase II 08/24/24 17:05 Procedure Start Time: 15:22 Procedure Stop Time: 15:38 Select all DRAINS/GRAFTS/IMPLANTS that apply: None Special Medications: Per anesthesia Estimated Blood Loss: 30 mL Fluids Replaced: Per anesthesia Specimen collected: Yes Description of specimen(s) removed: Plantar wart, right foot sent to pathology Description of surgery: Indications For Operation: Ms Roman is a 49-year-old female who was admitted to [facility] for a right foot surgery consisting of destruction of benign skin lesion 1 through 14 and destruction of benign skin lesion +15 to the right lower extremity. Patient was seen in private office for multiple treatments for her warts and due to the delayed recovery the patient had elected to move forward with removal of the warts in the operating room. Risk benefits were discussed with the patient great detail. Chart reviewed consent signed. Due to delayed healing and removal of the warts to the heel of the right lower extremity was deemed necessary at this time to take patient to operating room performed above procedure to help cure her of her plantar warts and help relieve her constant pain.. The nature of the problem, anticipated procedures, postop recovery/ convalences and risk/complications include but not limited to infection, wound healing complications, digital amputation, hypertrophic scarring, numbness, tingling, chronic pain, CRPS, over and under correction, recurrence of deformity, DVT and or PE and the need for further surgery have been discussed in great detail with the patient. All questions have been answered to the patient's satisfaction. There are no guarantees given as to the outcome of the procedure. Description of Procedure: Under mild sedation, the patient was brought into the operating room and placed on the operating table in supine position. Once the patient was under general anesthesia with regional mask airway, the right lower extremity was blocked using approximately 20 cc 0.5% Marcaine plain. Next, a well-padded calf tourniquet was applied to the right lower extremity. Next, the right lower extremity was prepped and draped in normal aseptic manner. Next, a timeout was then undertaken verifying the correct patient, extremity, visibility of preoperative markings, availability of the equipment. Next, attention was directed to the right lower extremity. Using a 4 inch Esmarch, right lower extremity was exsanguinated and elevated to 60 degrees for 1 minute. Procedure #1: Destruction of benign skin lesion 1?14 (CPT code: 35935) /Procedure #2 destruction benign skin lesion +15 (CPT code: 76119) Next, attention was directed to the right lower extremity at the level of the heel where the plantar warts were present. There showed greater than 15 warts to the plantar right heel. Using a sterile skin marker the incision was marked out encompassing all the plantar warts and some healthy tissue to allow for a clean margin once destruction of benign skin lesion was performed. Using a #15 blade a full-thickness tissue down to subcutaneous tissue was performed along the incision. Using pickups and continued sharp dissection, the plantar warts were removed in total and passed the back table to be sent off for pathology. The removed warts were inspected and showed no evidence of deep penetration through the subcutaneous tissue. The subcutaneous tissue in the right heel was also inspected show no evidence of plantar warts at the time of the operation. At this time the right tourniquet was deflated and reperfusion was noted instantly to the right lower extremity. All bleeders were ligated and cauterized as necessary. Right heel was flushed with cold amounts of normal saline. Gelfoam was packed in the defect. The right heel was dressed with Betadine soaked Adaptic, 4 x 4's, dry sterile dressing ABD and a single-layer Naidu compression bandage was donned to the right lower extremity. The patient tolerated the procedure and anesthesia well and apparent satisfactory condition and was transported to the PACU for further monitoring prior to discharge home. Vital signs stable and vascular status intact to all digits bilateral. Post Operative Plan: Weightbearing: No weightbearing to right lower extremity with crutches. Full weightbearing to the left lower extremity. Antibiotics: 2 g Ancef Ivey: None Dressing: Gelfoam, Betadine soaked Adaptic, dry sterile dressing and a single- layer Naidu compression bandage right lower extremity. Pain Medication: Percocet 5/325 Follow-up: Patient will follow-up 1 week in private office. Surgical Findings: 1. Complete removal of right heel plantar warts. Complications Complications: No Admit VTE Documentation VTE Present on Admission: No VTE Mechan Device Prophylaxis: SCD's VTE Pharm Prophylaxis ordered?: No
[2024-08-24] MEDS: Clindamycin 900 MG/50 ML BAG 75 MG IV (15:06)
[2024-08-24] MEDS: Bupivacaine 0.5% PF 10 ML VIAL (15:15)
--- NOTE | 2024-08-24 15:49 | PCM.POST.ANE ---
Anesthesia: Postop Eval I Current Vital Signs Temperature: 97.5 F Pulse Rate: 95 Blood Pressure: 125/83 Respiratory Rate: 18 Pulse Ox: 94 Oxygen Delivery Method: Room Air Assessment Airway patent: Yes Spontaneous unlabored respirations: Yes Mental status: Awake and Calm nausea: No Vomiting: No Anesthesia Complication: No Fluid Hydration Crystalloid volume administer (ml): 600 Total IV fluid infused: 600 Progress Note Anesthesia document: Postop Eval 1 completed: Yes
[2024-08-24] MEDS: Ketorolac 30 MG/ML Syringe IV (15:58)
--- NOTE | 2024-08-24 16:41 | POSTOPAN2_ITS ---
Anesthesia Postop Eval I Sum Postop Eval Completion status Anesthesia document: Postop Eval 1 completed: Yes Anesthesia Postop Eval I Summary Anesthesia Postop Eval I Summary: Anesthesia Postop Eval I: Assessment Summary Airway patent Yes 08/24/24 15:50 [email or web address] Spontaneous unlabored Yes 08/24/24 15:50 [email or web address] [email or web address] respirations Mental status Awake,Calm 08/24/24 15:50 [email or web address] nausea No 08/24/24 15:50 [email or web address] [email or web address] Vomiting No 08/24/24 15:50 [email or web address] Anesthesia Postop Eval I: Fluid Summary Crystalloid volume administer 600 08/24/24 15:50 [email or web address] (ml) Colloids volume administered ( ml) Blood Product volume administered (ml) Total IV fluid infused 600 08/24/24 15:50 [email or web address] Anesthesia Postop Eval I: Summary Notes Anesthesia Complication No 08/24/24 15:50 BROADCAST [email or web address] Anesthesia Complication Comment: Post-operative progress note Anesthesia: Postop Eval II Evaluation Mental status: Awake and Calm Pain Level: 1 nausea: No Vomiting: No Complications Anesthesia Complication: No
--- NOTE | 2024-08-24 16:41 | PCM.POSTANE2 ---
Anesthesia Postop Eval I Sum Postop Eval Completion status Anesthesia document: Postop Eval 1 completed: Yes Anesthesia Postop Eval I Summary Anesthesia Postop Eval I Summary: Anesthesia Postop Eval I: Assessment Summary Airway patent Yes 08/24/24 15:50 [email or web address] Spontaneous unlabored Yes 08/24/24 15:50 [email or web address] respirations Mental status Awake,Calm 08/24/24 15:50 [email or web address] nausea No 08/24/24 15:50 [email or web address] Vomiting No 08/24/24 15:50 [email or web address] Anesthesia Postop Eval I: Fluid Summary Crystalloid volume administer 600 08/24/24 15:50 [email or web address] (ml) Colloids volume administered ( ml) Blood Product volume administered (ml) Total IV fluid infused 600 08/24/24 15:50 [email or web address] Anesthesia Postop Eval I: Summary Notes Anesthesia Complication No 08/24/24 15:50 [email or web address] Anesthesia Complication Comment: Post-operative progress note Anesthesia: Postop Eval II Evaluation Mental status: Awake and Calm Pain Level: 1 nausea: No Vomiting: No Complications Anesthesia Complication: No
[2024-08-24] MEDS: oxyCODONE 5 MG Tablet PO (16:42)
== END 2024-08-24 17:05 | disposition home or self-care (01) ==
LOC: SDC 12:54 → AC 12:55
PROVIDERS: PCP Nurse Practitioner; Referring Provider Podiatrist Foot & Ankle Surgery; Visit Provider Podiatrist Foot & Ankle Surgery
PROC: (CPT 17111; principal; 2024-08-24 14:15)
DX: B07.0 Plantar wart (principal); M79.671 Pain in right foot; F32.A Depression, unspecified; F41.9 Anxiety disorder, unspecified; F17.210 Nicotine dependence, cigarettes, uncomplicated; Z79.899 Other long term (current) drug therapy
CPT/HCPCS: 17111; 64445; 36415; 80307; 82306; 83036; 88305; J2405

== ENCOUNTER → 2025-01-22 | Outpatient (CLI) | payer MEDICAID, SELFPAY ==
[2025-01-22 12:24] LABS: Absolute Lymphocyte Count 3.24 X10^3/uL (0.83-4.51); Absolute Neutrophil Count 2.9 X10^3/uL (2.0-7.7); Basophil# 0.07 X10^3/uL; Eosinophil# 0.15 X10^3/uL; Eosinophils% 2.2 % (0-5); Hemoglobin 16.4 g/dL (12.0-15.0); Lymphocyte # 3.24 X10^3/ul (0.83-4.51); Lymphocyte % 46.8 % (19-41); Mean Corp Hgb Conc 32.8 g/dL (32-36); Mean Corpuscular Hgb 32.2 pg (27.0-32.0); Mean Platelet Vol. 12.6 fl (6.2-12.0); Monocyte# 0.57 X10^3/uL; Monocyte% 8.2 % (0-10); NRBC Flagged by Analyzer 0 % (0-5); Neutrophil # 2.89 X10^3/uL (2.7-7.7); Neutrophil % 41.7 % (47-70); Platelet Count 230 K/mm3 (150-450); RBC Distribution Width CV 13.4 % (11.6-14.6); RBC Distribution Width SD 49.2 fl (35.1-43.9); White Blood Count 6.9 K/mm3 (4.4-11.0)
[2025-01-22 13:04] LABS: ALB/GLOB Ratio 1.5 RATIO (0.9-2.4); AST(SGOT) 45 U/L (<=31); Alanine Aminotransfer ALT/SGPT 88 U/L (<=34); Albumin, Serum 4.2 g/dL (3.5-5.0); Alkaline Phosphatase 99 U/L (35-104); Anion Gap 12 (5-15); BUN 9 mg/dL (4-19); BUN/Creat Ratio 12.2 RATIO (10-20); Calcium,Total 9.7 mg/dL (7.6-11.0); Carbon Dioxide 22.2 mmol/L (21.0-32.0); Chloride 108 mmol/L (98-108); Cholesterol 280 mg/dL (<=200); Creatinine, Serum 0.76 mg/dL (0.70-1.20); EST Glomerular Filtration Rate 97 (>60); Globulin 2.9 g/dL (2.2-4.2); Glucose 88 mg/dL (70-99); High Density Lipoprotein 60 mg/dL; Low Density Lipoprotein Calc. 192 mg/dL; Potassium 4.2 mmol/L (3.3-5.1); Protein, Total 7.1 g/dL (5.9-8.4); Sodium Level 142 mmol/L (133-145); Total Bilirubin 0.41 mg/dL (0.00-1.30); Triglycerides 139 mg/dL; Very Low Density Lipoprotein 28 mg/dL (5-40); Vitamin D,25 Hydroxy 31.4 ng/mL (30-100); cholesterol:hdl ratio screen 4.68
[2025-01-24 12:08] LABS: CCP IgG Antibodies 6 units (0-19)
== END | disposition home or self-care (01) ==
LOC: BIMLAB 08:26
PROVIDERS: PCP Internal Medicine; Referring Provider Internal Medicine; Visit Provider Internal Medicine
DX: M25.50 Pain in unspecified joint (principal); E78.2 Mixed hyperlipidemia; E55.9 Vitamin D deficiency, unspecified
CPT/HCPCS: 36415; 80053; 80061; 82306; 85025; 86200

== ENCOUNTER 2025-01-29 17:03 | Emergency (ER) | payer MEDICAID, SELFPAY ==
[2025-01-29 17:04] VITALS: BP 138/85; PULSE 99; RESP 18; TEMP 36.2; O2SAT 99; BMI 31.4
--- NOTE | 2025-01-29 17:26 | EX.ED.DYSGE1 ---
HPI History of Present Illness Chief Complaint: Edema Narrative Narrative: 49-year-old female presents with abdominal pain and swelling/distention that she has had for the last 24 hours. She relays history that in 2019 she was diagnosed with a fatty liver. In 2021 she had a liver biopsy and was diagnosed with POWELL/cirrhosis. She does not drink alcohol. She states that she is having problems with her liver today. She developed right upper quadrant abdominal pain and diarrhea as well as abdominal distention and swelling. She was at work at the time, she states that she was able to drive to [facility] where she had an ultrasound and was told that she has an enlarged liver. She states that her labs were abnormal as well. She states that she called her primary care provider, Dr. Rao, and was told to come to the emergency department because she was having so much pain, and the abdominal distention as well. She denies any exacerbating or alleviating factors. She did have nausea and vomiting today as well. [facility] Medical History Left tennis elbow Tear of medial collateral ligament of right knee Bloody diarrhea COVID-19 Wears glasses Anxiety Open wound History of hiatal hernia GERD (gastroesophageal reflux disease) History of echocardiogram Blurred vision, right eye Allergic dermatitis Impingement of left shoulder PTSD (post-traumatic stress disorder) Left carpal tunnel syndrome MDD (major depressive disorder) Panic disorder Physical exam, pre-employment Menopausal hot flushes Hyperlipidemia Rectal prolapse Anal fissure Vaginal kushal Oral thrush Left shoulder pain Cervical radiculopathy Contact dermatitis Depression Fatty liver Injury of back Restless legs Gastric reflux Smoker POWELL (nonalcoholic steatohepatitis) Hypertension Fibromyalgia History of pneumonia Lupus Headache, migraine Arthritis Home Medications ?Medication ?Instructions ?Recorded ?Last Taken ?Type epinephrine 0.3 mg/0.3 mL 0.3 mg (0.3 mL) IM Q4H PRN 07/28/22 Unknown Rx injection, auto-injector (EpiPen anaphylaxis #2 ea 2-Tahir) amlodipine 2.5 mg tablet 2.5 mg PO DAILY #90 tabs 08/15/24 01/29/25 Rx propranolol 10 mg tablet 10 mg PO BID PRN akathisia #60 tabs 10/19/24 01/29/25 Rx gabapentin 300 mg capsule See Rx Instructions PO .COMPLEX 11/26/24 01/29/25 Rx #150 caps vilazodone 20 mg tablet 20 mg PO DAILY #90 tabs 12/05/24 01/29/25 Rx alprazolam 1 mg tablet 1 mg PO DAILY PRN anxiety #30 tabs 12/20/24 Unknown Rx pantoprazole 40 mg tablet,delayed 40 mg PO DAILY #90 tabs 01/22/25 01/29/25 Rx release (Protonix) melatonin 5 mg capsule 5 mg PO QHS 01/29/25 01/28/25 History Allergy/AdvReac Type Severity Reaction Status Date / Time shellfish derived Allergy Severe Anaphylaxis Verified 01/29/25 17:04 Sulfa (Sulfonamide Allergy Severe Hives Verified 01/29/25 17:04 Antibiotics) tree nut Allergy Severe Anaphylaxis Verified 01/29/25 17:04 adhesive Allergy NEEDS Verified 01/29/25 17:04 FOLLOW-UP Iodinated Contrast Media Allergy Swelling Verified 01/29/25 17:04 (DYEE) nitrofurantoin Allergy Hives Verified 01/29/25 17:04 macrocrystalline (From Macrodantin) phenazopyridine (From Allergy Hives Verified 01/29/25 17:04 Pyridium) sulfamethoxazole (From Allergy Hives Verified 01/29/25 17:04 Bactrim) trimethoprim (From Bactrim) Allergy Hives Verified 01/29/25 17:04 Acrylic Acid and Acrylates AdvReac Severe Other Verified 01/29/25 17:04 (steri-strips (acrylate)) Family History Father Alcoholism CVA (cerebral vascular accident), Onset Age: 40 hemorrhagic stroke Mother Cancer Melanoma Heart disease Grandfather Colon cancer Grandmother Cancer lung and brain Other Arthritis Autoimmune disorder Breast cancer Depression Hypertension Liver disease Myocardial infarction Ovarian cancer Psychiatric care Thyroid disorder Uterine cancer ulcer disease Surgical History H/O skin graft S/P foot surgery History of colonoscopy History of esophagogastroduodenoscopy (EGD) History of appendectomy History of oophorectomy History of exploratory laparotomy History of tonsillectomy Hx of hysterectomy Hx of hernia repair Hx of section Social History adopted: No household members: family number of children: 3 current occupational status: employed current occupation: [employer] home pets and animals: No sexually active: No Smoking Status: Current every day smoker tobacco type: cigarettes Tobacco: How many years used: 30 quit status: considering quitting alcohol intake: never substance use type: does not use caffeine: Yes (4) Type: coffee and tea frequency: daily do you feel safe at home: Yes ROS ROS ED ROS Narrative Review of systems positive for nausea and vomiting, right upper quadrant abdominal pain radiating to back. Positive abdominal swelling and distention. No exacerbating or alleviating factors. Denies dysuria or hematuria. Positive diarrhea today as well. EXAM Physical Exam Narrative Exam Narrative: Afebrile. Vital signs noted. Nontoxic-appearing. Cardiovascular examination reveals a regular rate and rhythm. Lungs are clear to auscultation bilaterally. Abdomen is soft with mild distention, positive bowel sounds. Mild tenderness to palpation in right upper quadrant. No rebound or guarding. Neurological examination nonfocal, nonlateralizing. Positive anxiety. Const Vital Signs: 01/29/25 17:04 01/29/25 17:22 Temperature 97.2 F L Temperature Source Temporal Pulse Rate 99 Respiratory Rate 18 Respiratory Effort Normal Respiratory Pattern Normal Blood Pressure 138/85 H Blood Pressure Mean 102 Pulse Ox 99 Oxygen Delivery Method Room Air MDM MDM MDM Narrative Medical decision making narrative: Differential diagnosis includes but not limited to liver failure with ascites versus acute cholecystitis versus diverticulitis. I have low suspicion for acute appendicitis. She may have partial small bowel obstruction as well as she has had history of hysterectomy. Comprehensive workup was pursued. She states she already had an ultrasound which did not show cholecystitis today as she was released from an outside facility. CBC, CMP, and lipase will be obtained as well as CT imaging without contrast secondary to allergy to iodinated contrast media. She was given morphine and ondansetron for analgesia. I reviewed her laboratory work and she has normal white count of 8.3 with hemoglobin 15.0, hematocrit 43.2, platelet count normal at 202. CMP is remarkable for CO2 low at 20.8 which I think is nonspecific, glucose of 124 but normal anion gap of 13. While she has slightly elevated LFTs with an AST of 49 and an ALT of 82, alk phos is normal at 96. When compared to prior laboratories, her AST and ALT are not elevated significantly in comparison. Lipase normal at 29 so I doubt pancreatitis. I reviewed the radiology report of the CT of the abdomen and pelvis which shows no acute process. Gallbladder is unremarkable. She does have hepatomegaly at 19 cm. Upon repeat examination, she is resting comfortably on the cot. I feel she can be discharged safely home with follow-up to her primary care provider as she may need referral to a video editing internship. Patient is motivated for discharge. Return instructions to the emergency department were reviewed. Disposition is discharged home in stable condition. History & Record Review Discussion w/independent historian: Patient Lab Data Attestation: I reviewed the patient's lab results. Labs: Laboratory Results - last 24 hr 01/29/25 17:33 WBC 8.3 RBC 4.54 Hgb 15.0 Hct 43.2 MCV 95.2 MCH 33.0 H MCHC 34.7 RDW Std Deviation 46.9 H RDW Coeff of Sakina 13.2 Plt Count 202 MPV 12.5 H Immature Gran % (Auto) 0.100 Neut % (Auto) 44.0 L Lymph % (Auto) 46.7 H [place] % (Auto) 6.7 Eos % (Auto) 1.8 Baso % (Auto) 0.7 Absolute Neuts (auto) 3.7 Absolute Lymphs (auto) 3.89 Nucleated RBC % 0 Sodium 141 Potassium 3.7 Chloride 107 Carbon Dioxide 20.8 L Anion Gap 13 BUN 12 Creatinine 0.88 Estim Creat Clear Calc 82.35 Est GFR (MDRD) Non-Af 82 BUN/Creatinine Ratio 13.5 Glucose 124 H Calcium 9.4 Total Bilirubin 0.28 AST 49 H ALT 82 H Alkaline Phosphatase 96 Total Protein 6.5 Albumin 4.1 Globulin 2.4 Albumin/Globulin Ratio 1.7 Lipase 29 Radiography Diagnostic Testing: Clinical Impression(s) from Imaging Studies Abdomen/Pelvis CT 01/29/25 17:50 IMPRESSION: No acute intra-abdominal process. Reading Location: [facility] Discharge Plan Triage Chief Complaint: Edema Other Complaint: Abn Labs ED Provider: Will Delgadillo Dx/Rx/DC Orders Clinical Impression: Abdominal pain, Elevated LFTs, Hepatomegaly Instructions: ED Abdominal Pain Unkn Cause Fem Prescriptions: No Action vilazodone 20 mg tablet 20 mg PO DAILY Qty: 90 1RF epinephrine [EpiPen 2-Tahir] 0.3 mg/0.3 mL auto-injector 0.3 mg IM Q4H PRN (Reason: anaphylaxis) Qty: 2 0RF melatonin 5 mg capsule 5 mg PO QHS amlodipine 2.5 mg tablet 2.5 mg PO DAILY Qty: 90 1RF propranolol 10 mg tablet 10 mg PO BID PRN (Reason: akathisia) Qty: 60 2RF gabapentin 300 mg capsule See Rx Instructions PO .COMPLEX Qty: 150 2RF Rx Instructions: 300 mg PO qAM and qPM and 900 mg PO qHS alprazolam 1 mg tablet 1 mg PO DAILY PRN (Reason: anxiety) Qty: 30 0RF Patient Comments: PT STATES ONLY TAKES HALF PRN pantoprazole [Protonix] 40 mg tablet,delayed release (DR/EC) 40 mg PO DAILY Qty: 90 0RF Primary Care Provider: Blanca Rao Referrals: Blanca Rao MD [Primary Care Provider] - As soon as possible Activity Restrictions/Additional Instructions: Follow-up with your primary care provider. You may need to see a video editing internship regarding your hepatomegaly. This is in conjunction with your slightly elevated LFTs. Return with new or worsening symptoms. Print Language: Tajik Disposition Disposition: Home, Self Care
[2025-01-29] MEDS: Morphine 4 MG/ML Syringe IV (17:35)
[2025-01-29] MEDS: Ondansetron 4 MG/2 ML Vial IV (17:35)
--- NOTE | 2025-01-29 17:50 | CT_ITS ---
PROCEDURE: ABDOMEN/PELVIS WITHOUT CONT 01/29/2025 REASON FOR EXAM: PAIN TECHNIQUE: Abdomen and pelvis CT without intravenous contrast. Noncontrast technique limits evaluation of the abdominal and pelvic viscera. Coronal and Sagittal reconstruction series were provided. One or more dose reduction techniques were used (e.g., Automated exposure control, adjustment of the mA and/or kV according to patient size, use of iterative reconstruction technique). PATIENT PREPARATION: Per protocol ORAL CONTRAST TYPE: None. COMPARISON: 08/30/2023 FINDINGS: Limited sections of the lung bases demonstrate no focal pulmonary mass. The liver, spleen, pancreas, both kidneys, and both adrenal glands demonstrate no acute findings. Hepatomegaly to 19 cm. The gallbladder is unremarkable. The stomach is distended with residue. The aorta and IVC demonstrate no acute findings. Mild atherosclerosis of the abdominal vasculature. There is no free air, free fluid or intestinal obstruction. The small bowel loops are not dilated. The appendix appears surgically removed No bowel obstruction. The pelvic structures are intact. There is no solid pelvic mass. The urinary bladder is partially distended. Visualized osseous structures demonstrate no acute abnormality. CT/Abdomen/Pelvis without Cont IMPRESSION: No acute intra-abdominal process. Reading Location: [id number]
[2025-01-29 18:10] LABS: Absolute Lymphocyte Count 3.89 X10^3/uL (0.83-4.51); Absolute Neutrophil Count 3.7 X10^3/uL (2.0-7.7); Basophil# 0.06 X10^3/uL; Basophil% 0.7 % (0-1); Eosinophil# 0.15 X10^3/uL; Eosinophils% 1.8 % (0-5); Hematocrit 43.2 % (37-47); Lymphocyte # 3.89 X10^3/ul (0.83-4.51); Lymphocyte % 46.7 % (19-41); Mean Corp Hgb Conc 34.7 g/dL (32-36); Mean Corpuscular Volume 95.2 fL (81-99); Mean Platelet Vol. 12.5 fl (6.2-12.0); Monocyte# 0.56 X10^3/uL; Monocyte% 6.7 % (0-10); NRBC Flagged by Analyzer 0 % (0-5); Neutrophil # 3.66 X10^3/uL (2.7-7.7); Platelet Count 202 K/mm3 (150-450); RBC Distribution Width CV 13.2 % (11.6-14.6); RBC Distribution Width SD 46.9 fl (35.1-43.9); Red Blood Count 4.54 M/mm3 (4.2-5.4); White Blood Count 8.3 K/mm3 (4.4-11.0)
[2025-01-29 18:12] LABS: ALB/GLOB Ratio 1.7 RATIO (0.9-2.4); AST(SGOT) 49 U/L (<=31); Alanine Aminotransfer ALT/SGPT 82 U/L (<=34); Albumin, Serum 4.1 g/dL (3.5-5.0); Alkaline Phosphatase 96 U/L (35-104); Anion Gap 13 (5-15); BUN 12 mg/dL (4-19); BUN/Creat Ratio 13.5 RATIO (10-20); Calcium,Total 9.4 mg/dL (7.6-11.0); Carbon Dioxide 20.8 mmol/L (21.0-32.0); Chloride 107 mmol/L (98-108); Creatinine, Serum 0.88 mg/dL (0.70-1.20); EST Glomerular Filtration Rate 82 (>60); Estimated Creatinine Clearance 82.35 ml/min (50-250); Globulin 2.4 g/dL (2.2-4.2); Glucose 124 mg/dL (70-99); Lipase 29 U/L (13-75); Potassium 3.7 mmol/L (3.3-5.1); Protein, Total 6.5 g/dL (5.9-8.4); Sodium Level 141 mmol/L (133-145); Total Bilirubin 0.28 mg/dL (0.00-1.30)
[2025-01-29 18:39] VITALS: BP 138/85; PULSE 99; RESP 18; TEMP 36.2; O2SAT 99
== END 2025-01-29 18:44 | disposition home or self-care (01) ==
PROVIDERS: Emergency Provider Emergency Medicine; PCP Internal Medicine; Visit Provider Emergency Medicine
DX: R10.11 Right upper quadrant pain (principal); R19.7 Diarrhea, unspecified; R60.9 Edema, unspecified; R79.89 Other specified abnormal findings of blood chemistry; I10 Essential (primary) hypertension; E78.5 Hyperlipidemia, unspecified; R16.0 Hepatomegaly, not elsewhere classified; R14.0 Abdominal distension (gaseous); K75.81 Nonalcoholic steatohepatitis (NASH); R11.2 Nausea with vomiting, unspecified; F17.210 Nicotine dependence, cigarettes, uncomplicated; Z79.899 Other long term (current) drug therapy
CPT/HCPCS: 74176; 80053; 83690; 85025; 96374; 96375; 99283; A4216; J2405

== ENCOUNTER → 2025-02-12 | Outpatient (CLI) | payer MEDICAID, SELFPAY ==
--- NOTE | 2025-02-12 12:10 | US_ITS ---
PROCEDURE: THYROID 02/12/2025 REASON FOR EXAM: THYROID TENDERNESS TECHNIQUE: THYROID COMPARISON: None FINDINGS: Right thyroid lobe size: 4.1 x 1.1 x 1.2 cm Left thyroid lobe size: 4.2 x 1.6 x 1.4 cm Isthmus: 0.3 cm Background parenchymal echotexture is homogeneous. Nodules: None US/Thyroid IMPRESSION: Normal thyroid ultrasound. RECOMMENDATION: Based on most suspicious nodule. Nodule size = largest diameter Only evaluate nodule if =>5 mm. Growth > 20% in 2 dimensions = worsening. Follow up to 4 nodules. Recommend biopsy for no more than 2 nodules. [facility]
--- NOTE | 2025-02-12 12:14 | BI_ITS ---
EXAM: SCRN MAMM (CAD)W/ENOC BILAT DATE: 02/12/2025 CLINICAL HISTORY: F, Age 49 y/o , SCREENING Grandmother with breast cancer. Aunt with breast cancer. BREAST CANCER RISK ASSESSMENT: Not assessed. TECHNIQUE: Bilateral screening digital breast tomosynthesis with 2D and 3D images. Computer aided detection. COMPARISON: Prior exam(s) dated August 17, 2023.. FINDINGS: TISSUE DENSITY: The breast tissue is composed of scattered areas of fibroglandular density. Bilateral Breast Mammographic Findings: No significant masses, calcifications or other abnormalities are identified. No suspicious masses, areas of developing architectural distortion, or suspicious calcifications. There has been no significant interval change. BI/SCRN MAMM (CAD)W/ENOC BILAT IMPRESSION: Stable examination OVERALL FINAL ASSESSMENT BI-RADS 1: NEGATIVE. RECOMMEND ANNUAL MAMMOGRAPHIC SCREENING. RECOMMENDATION: Routine annual follow-up in 1 Year A letter with findings and recommendations will be mailed to the patient. Reading Location: [place] [id number]
[2025-02-12 14:56] LABS: Absolute Lymphocyte Count 3.53 X10^3/uL (0.83-4.51); Absolute Neutrophil Count 4.1 X10^3/uL (2.0-7.7); Basophil% 1.2 % (0-1); Eosinophil# 0.15 X10^3/uL; Eosinophils% 1.8 % (0-5); Hemoglobin 15.7 g/dL (12.0-15.0); Lymphocyte # 3.53 X10^3/ul (0.83-4.51); Lymphocyte % 41.3 % (19-41); Mean Corp Hgb Conc 33.4 g/dL (32-36); Mean Corpuscular Volume 95.7 fL (81-99); Mean Platelet Vol. 12.4 fl (6.2-12.0); Monocyte# 0.61 X10^3/uL; Monocyte% 7.1 % (0-10); NRBC Flagged by Analyzer 0 % (0-5); Neutrophil # 4.13 X10^3/uL (2.7-7.7); Neutrophil % 48.4 % (47-70); Platelet Count 212 K/mm3 (150-450); RBC Distribution Width SD 46.2 fl (35.1-43.9); Red Blood Count 4.91 M/mm3 (4.2-5.4); White Blood Count 8.5 K/mm3 (4.4-11.0)
[2025-02-12 15:50] LABS: Erythrocyte Sedimentation Rate 19 mm/hr (0-30)
[2025-02-12 16:56] LABS: ALB/GLOB Ratio 1.7 RATIO (0.9-2.4); AST(SGOT) 76 U/L (<=31); Alanine Aminotransfer ALT/SGPT 116 U/L (<=34); Albumin, Serum 4.4 g/dL (3.5-5.0); Alkaline Phosphatase 98 U/L (35-104); Anion Gap 13 (5-15); BUN 9 mg/dL (4-19); BUN/Creat Ratio 11.6 RATIO (10-20); Calcium,Total 9.7 mg/dL (7.6-11.0); Carbon Dioxide 22.2 mmol/L (21.0-32.0); Chloride 107 mmol/L (98-108); Creatinine, Serum 0.75 mg/dL (0.70-1.20); EST Glomerular Filtration Rate 98 (>60); Globulin 2.7 g/dL (2.2-4.2); Glucose 78 mg/dL (70-99); Potassium 4.2 mmol/L (3.3-5.1); Protein, Total 7.1 g/dL (5.9-8.4); Sodium Level 142 mmol/L (133-145); Total Bilirubin 0.58 mg/dL (0.00-1.30)
[2025-02-14 05:07] LABS: HEPATITIS B SURFACE AG Negative (Negative); Hep C Antibodies Non Reactive (Non Reactive); Hepatitis A IgM Antibody Negative (Negative); Hepatitis B Core AB IgM Negative (Negative)
== END | disposition home or self-care (01) ==
PROVIDERS: PCP Internal Medicine; Referring Provider Internal Medicine; Visit Provider Internal Medicine
DX: Z12.31 Encounter for screening mammogram for malignant neoplasm of breast (principal); R74.8 Abnormal levels of other serum enzymes; R10.11 Right upper quadrant pain; E07.89 Other specified disorders of thyroid
CPT/HCPCS: 36415; 76536; 77063; 77067; 80053; 80074; 85025; 85652

== ENCOUNTER 2025-05-15 12:30 | Emergency (ER) | payer MEDICAID, SELFPAY ==
[2025-05-15 12:31] VITALS: BP 152/84; PULSE 99; RESP 19; TEMP 36.6; O2SAT 99; BMI 31.7
--- NOTE | 2025-05-15 12:55 | EDS_ITS ---
HPI HPI - GI History of Present Illness Chief Complaint: Abd Pain Detail of Chief Complaint: Abdominal pain Informant: patient Abdominal Pain/Flank Pain Current Severity: 06/07 Narrative Narrative: Patient presents with abdominal pain that started around 6 AM this morning. She complains of nausea. She did try to eat an apple and then developed more pain. Pains in the right upper abdomen and radiating through to her back. She denies fevers. She has not had pain like this before. She does have history of POWELL. She has had prior appendectomy and hysterectomy. She denies fevers. She denies urinary symptoms. No history of kidney stones. [facility] Medical History Left tennis elbow Tear of medial collateral ligament of right knee Bloody diarrhea COVID-19 Wears glasses Anxiety Open wound History of hiatal hernia GERD (gastroesophageal reflux disease) History of echocardiogram Blurred vision, right eye Allergic dermatitis Impingement of left shoulder PTSD (post-traumatic stress disorder) Left carpal tunnel syndrome MDD (major depressive disorder) Panic disorder Physical exam, pre-employment Menopausal hot flushes Hyperlipidemia Rectal prolapse Anal fissure Vaginal kushal Oral thrush Left shoulder pain Cervical radiculopathy Contact dermatitis Depression Fatty liver Injury of back Restless legs Gastric reflux Smoker POWELL (nonalcoholic steatohepatitis) Hypertension Fibromyalgia History of pneumonia Lupus Headache, migraine Arthritis Home Medications ?Medication ?Instructions ?Recorded ?Last Taken ?Type epinephrine 0.3 mg/0.3 mL 0.3 mg (0.3 mL) IM Q4H PRN 1 09/27/21 Unknown Rx injection, auto-injector (EpiPen anaphylaxis #2 ea 2-Tahir) melatonin 5 mg capsule 5 mg PO QHS 01/29/25 5 History amlodipine 2.5 mg tablet 2.5 mg PO DAILY #90 tabs 06/22 Unknown Rx pantoprazole 40 mg tablet,delayed 40 mg PO DAILY #90 t abs 04/22/25 Unknown Rx release (Protonix) alprazolam 1 mg tablet 1 mg PO DAILY PRN anxiety #3 0 tabs 05/09/25 Unknown Rx gabapentin 300 mg capsule See Rx Instructions PO .COMP REGINO 90 05/09/25 Unknown Rx days #450 caps propranolol 10 mg tablet 10 mg PO BID PRN anxiety #18 0 tabs 05/09/25 Unknown Rx sertraline 100 mg tablet 100 mg PO DAILY 90 days #90 tabs 05/09/25 Unknown Rx Allergy/AdvReac Type Severity Reaction Status Date / Time shellfish derived Allergy Severe Anaphylaxis Verified 05/15/25 12:33 Sulfa (Sulfonamide Allergy Severe Hives Verified 05/15/25 12:33 Antibiotics) tree nut Allergy Severe Anaphylaxis Verified 05/15/25 12:33 adhesive Allergy NEEDS Verified 05/15/25 12:33 FOLLOW-UP Iodinated Contrast Media Allergy Swelling Verified 05/15/25 12:33 (DYEE) nitrofurantoin Allergy Hives Verified 05/15/25 12:33 macrocrystalline (From Macrodantin) phenazopyridine (From Allergy Hives Verified 05/15/25 12:33 Pyridium) sulfamethoxazole (From Allergy Hives Verified 05/15/25 12:33 Bactrim) trimethoprim (From Bactrim) Allergy Hives Verified 05/15/25 12:33 Acrylic Acid and Acrylates AdvReac Severe Other Verified 05/15/25 12:33 (steri-strips (acrylate)) Family History Father Alcoholism CVA (cerebral vascular accident), Onset Age: 40 hemorrhagic stroke Mother Cancer Melanoma Heart disease Grandfather Colon cancer Grandmother Cancer lung and brain Other Arthritis Autoimmune disorder Breast cancer Depression Hypertension Liver disease Myocardial infarction Ovarian cancer Psychiatric care Thyroid disorder Uterine cancer ulcer disease Surgical History H/O skin graft S/P foot surgery History of colonoscopy History of esophagogastroduodenoscopy (EGD) History of appendectomy History of oophorectomy History of exploratory laparotomy History of tonsillectomy Hx of hysterectomy Hx of hernia repair Hx of section Social History adopted: No household members: family number of children: 3 current occupational status: employed current occupation: [employer] home pets and animals: No sexually active: No Smoking Status: Current every day smoker tobacco type: cigarettes Tobacco: How many years used: 30 quit status: considering quitting alcohol intake: never substance use type: does not use caffeine: Yes (4) Type: coffee and tea frequency: daily do you feel safe at home: Yes ROS ROS ED Review of Systems ROS Unobtainable: other Constitutional Constitutional ED: Reports lethargy; Denies chills, fever(s), sweats or weight loss Eyes Eyes: Denies blurry vision, change in vision or diplopia ENT ENT ED: Denies rhinorrhea or sore throat Cardiovascular Cardiovascular: Reports racing heartbeat; Denies chest pain or orthopnea Respiratory/Chest Respiratory/Chest: Denies cough, dyspnea, dyspnea on exertion, orthopnea or sputum Gastrointestinal Gastrointestinal: Reports abdominal pain and nausea; Denies diarrhea or vomiting Genitourinary Genitourinary ED: Denies dysuria, hematuria or urinary frequency Musculoskeletal Musculoskeletal: Denies arthralgias, back pain, myalgias or neck pain Integumentary Denies abscess, Abrasions or rash Neurologic Neurologic: Denies headache(s) or weakness Psychiatric Psychiatric: Denies anxiety, depression or suicidal thoughts Endocrine Endocrinology: Denies polydipsia, polyphagia or polyuria Hematologic/Lymphatic Hematologic/Lymphatic: Denies easy bleeding, easy bruising or lymphadenopathy Allergic/Immunologic Allergic/Immunologic ED: Denies mouth swelling, tongue swelling or urticaria EXAM Physical Exam Const Vital Signs: 05/15/25 12:31 Temperature 97.9 F Temperature Source Oral Pulse Rate 99 Respiratory Rate 19 H Blood Pressure 152/84 H Blood Pressure Mean 106 Pulse Ox 99 Oxygen Delivery Method Room Air Positive well nourished and well developed General Appearance ED: well developed and NAD HEENT Reports TM's clear and moist mucous membranes normocephalic and atraumatic; Negative for trauma or tenderness Tympanic Membrane ED: Yes TM's clear Eyes PERRL and EOMs intact bilaterally General Eye ED: Negative for pale conjunctiva or scleral icterus Neck no lymphadenopathy, supple and no JVD General: Negative for tenderness Chest Wall inspection of chest normal and palpation of chest normal Chest: Negative for tenderness Resp normal respiratory effort and clear to auscultation bilaterally Effort and Inspection: Negative for respiratory distress or pain with movement Auscultation: Negative for rhonchi, wheezes or diminished lung sounds Cardio regular rate, regular rhythm, S1 normal heart sound, S2 normal heart sound and no murmurs Peripheral Pulses: pulses 2+ throughout GI normal to inspection, nondistended, normoactive bowel sounds, soft to palpation, non-distended and no masses GI Narrative: Tenderness palpation over right upper quadrant with guarding. Positive [place] sign. No rigidity or peritoneal signs. Back/Spine no CVA tenderness and no thoracic nor lumbar tenderness Extremity normal to inspection General Extremety ED: Negative for edema General Extremity: Negative for edema Neuro oriented x3, CN's II-XII intact bilaterally, no sensory deficits noted and gait normal Sensorium / Orientation: awake, alert, oriented to person, oriented to place and oriented to time Motor Exam: strength 5/5 throughout and strength abnormal Psych mental status grossly normal Skin no rashes or lesions noted and no wounds MDM MDM MDM Narrative Medical decision making narrative: Patient presents with right upper quadrant abdominal pain that started this morning and gradually worsened. Nausea. In the differential would be gallbladder disease versus kidney stone versus other acute intra-abdominal process such as bowel obstruction or bowel perforation. IV line will be established. Labs will be obtained. Will obtain a gallbladder ultrasound to evaluate further. CBC with differential white count 8.0 with hemoglobin 14.7 and platelet count of 203. Chemistries unremarkable. LFTs show slight elevation in the AST at 84 and ALT was 119. Alk phos was normal at 92. Total bilirubin was normal. Lactate normal at 1.1. Urinalysis unremarkable. Gallbladder ultrasound showed fatty liver otherwise no acute process. Patient was medicated with Dilaudid and Zofran and had to be remedicated after ultrasound as she had more pain. At this time we will premedicate with Solu- Medrol and Benadryl as she has allergy to IV dye and will obtain a CT scan of the abdomen pelvis with IV contrast to evaluate further and look for other causes of her abdominal pain. Care of patient turned over to evening physician awaiting CT results and final disposition. Lab Data Attestation: I reviewed the patient's lab results. Labs: Laboratory Results - last 24 hr 05/15/25 13:15 WBC 8.0 RBC 4.65 Hgb 14.7 Hct 43.3 MCV 93.1 MCH 31.6 MCHC 33.9 RDW Std Deviation 43.3 RDW Coeff of Sakina 12.6 Plt Count 203 MPV 12.5 H Immature Gran % (Auto) 0.300 Neut % (Auto) 39.9 L Lymph % (Auto) 48.6 H [place] % (Auto) 8.2 Eos % (Auto) 2.1 Baso % (Auto) 0.9 Absolute Neuts (auto) 3.2 Absolute Lymphs (auto) 3.87 Nucleated RBC % 0 Sodium 141 Potassium 4.0 Chloride 106 Carbon Dioxide 22.6 Anion Gap 13 BUN 9 Creatinine 0.83 Estim Creat Clear Calc 86.87 Est GFR (MDRD) Non-Af 87 BUN/Creatinine Ratio 10.5 Glucose 85 Lactic Acid 1.1 Calcium 9.6 Total Bilirubin 0.50 AST 84 H ALT 119 H Alkaline Phosphatase 92 Total Protein 6.8 Albumin 4.4 Globulin 2.4 Albumin/Globulin Ratio 1.8 Lipase 37 Urine Color Yellow Urine Clarity Clear Urine pH 6.5 Ur Specific [place] 1.010 Urine Protein Negative Urine Glucose (UA) Normal Urine Ketones Negative Urine Occult Blood Negative Urine Nitrite Negative Urine Bilirubin Negative Urine Urobilinogen Normal Ur Leukocyte Esterase Negative Urine RBC 0 SEEN Urine WBC 0 SEEN Ur Squamous Epith Cells 0-5 SEEN Urine Bacteria 0 SEEN Urine Mucus 0 SEEN Radiography Diagnostic Testing: Clinical Impression(s) from Imaging Studies Gallbladder Ultrasound 05/15/25 12:55 IMPRESSION: Mild hepatomegaly and diffuse fatty infiltration of the liver. Focal fatty sparing along the gallbladder fossa. Reading Location: [place] [id number] Discharge Plan Triage Chief Complaint: Abd Pain ED Provider: Robin Alex Dx/Rx/DC Orders Clinical Impression: Abdominal pain Prescriptions: No Action sertraline 100 mg tablet 100 mg PO DAILY 90 Days Qty: 90 1RF propranolol 10 mg tablet 10 mg PO BID PRN (Reason: anxiety) Qty: 180 1RF gabapentin 300 mg capsule See Rx Instructions PO .COMPLEX 90 Days Qty: 450 1RF Rx Instructions: 300 mg PO qAM and qPM and 900 mg PO qHS alprazolam 1 mg tablet 1 mg PO DAILY PRN (Reason: anxiety) Qty: 30 2RF Patient Comments: PT STATES ONLY TAKES HALF PRN epinephrine [EpiPen 2-Tahir] 0.3 mg/0.3 mL auto-injector 0.3 mg IM Q4H PRN (Reason: anaphylaxis) Qty: 2 0RF melatonin 5 mg capsule 5 mg PO QHS amlodipine 2.5 mg tablet 2.5 mg PO DAILY Qty: 90 0RF pantoprazole [Protonix] 40 mg tablet,delayed release (DR/EC) 40 mg PO DAILY Qty: 90 0RF Primary Care Provider: Blanca Rao Referrals: Blanca Rao MD [Primary Care Provider, Internal Medicine] Print Language: Turkish
--- NOTE | 2025-05-15 12:55 | US_ITS ---
PROCEDURE: GALLBLADDER 05/15/2025 REASON FOR EXAM: Right upper quadrant pain. TECHNIQUE: Procedure Code: USGB Modality: US Procedure: GALLBLADDER COMPARISON: None FINDINGS: Liver: Diffusely echogenic suggesting fatty infiltration. Mild hepatomegaly. The liver measures 18 cm. Findings suggestive of focal fatty sparing adjacent to the gallbladder lumen. Gallbladder: No stones, sludge, wall thickening or tenderness. Common bile duct: Normal measuring 5.1 mm . Pancreas: Normal Other: Visualized portions of the right kidney are unremarkable. No right upper quadrant ascites. US/Gallbladder IMPRESSION: Mild hepatomegaly and diffuse fatty infiltration of the liver. Focal fatty sparing along the gallbladder fossa. Reading Location: [place] [id number]
[2025-05-15] MEDS: 0.9% Normal Saline (1000mL) 1,000 ML 125 ML IV (13:10)
[2025-05-15 13:25] LABS: Mucous, Urine 0 SEEN /hpf (<or=2+); Red Blood Cells-Urine 0 SEEN /hpf (0-5)
[2025-05-15 13:29] LABS: Color, Urine Yellow (Yellow); Glucose, Dipstick Normal (Normal); Ketone-Dipstick Negative (Negative); Leukocyte Esterase-Dipstick Negative /ul (Negative); Nitrite-Dipstick Negative (Negative); Occult Blood-Urine Negative /ul (Negative); Protein-Dipstick Negative (Negative); Specific Gravity, Urine 1.010 (1.002-1.030); Urine Bilirubin Dipstick Negative (Negative)
[2025-05-15 13:31] LABS: Hematocrit 43.3 % (37-47); Hemoglobin 14.7 g/dL (12.0-15.0); Immature Granulocytes Count 0.020 X10^3/uL (0.0-0.0); Mean Corp Hgb Conc 33.9 g/dL (32-36); Mean Corpuscular Volume 93.1 fL (81-99); Mean Platelet Vol. 12.5 fl (6.2-12.0); NRBC Flagged by Analyzer 0 % (0-5); Platelet Count 203 K/mm3 (150-450); RBC Distribution Width CV 12.6 % (11.6-14.6); RBC Distribution Width SD 43.3 fl (35.1-43.9); Red Blood Count 4.65 M/mm3 (4.2-5.4); White Blood Count 8.0 K/mm3 (4.4-11.0)
[2025-05-15 13:34] LABS: Squamous Epithelial Cells - UA 0-5 SEEN /hpf (5-10)
[2025-05-15 13:55] LABS: AST(SGOT) 84 U/L (<=31); Alanine Aminotransfer ALT/SGPT 119 U/L (<=34); Albumin, Serum 4.4 g/dL (3.5-5.0); Alkaline Phosphatase 92 U/L (35-104); Anion Gap 13 (5-15); BUN 9 mg/dL (4-19); BUN/Creat Ratio 10.5 RATIO (10-20); Calcium,Total 9.6 mg/dL (7.6-11.0); Carbon Dioxide 22.6 mmol/L (21.0-32.0); Chloride 106 mmol/L (98-108); Estimated Creatinine Clearance 86.87 ml/min (50-250); Globulin 2.4 g/dL (2.2-4.2); Glucose 85 mg/dL (70-99); Lipase 37 U/L (13-75); Potassium 4.0 mmol/L (3.3-5.1)
[2025-05-15] MEDS: DiphenhydrAMINE 50 MG/ML Syringe 25 MG IV (14:56)
[2025-05-15 14:59] VITALS: BP 118/59; PULSE 75; RESP 16; O2SAT 100
[2025-05-15 16:00] VITALS: BP 101/56; PULSE 65; RESP 16; O2SAT 93
--- NOTE | 2025-05-15 16:08 | CT_ITS ---
PROCEDURE: ABDOMEN/PELVIS W IV CONT ONLY 05/15/2025 REASON FOR EXAM: RIGHT UPPER ABDOMINAL PAIN TECHNIQUE: Procedure Code: [id number] Modality: CT Procedure: ABDOMEN/PELVIS W IV CONT ONLY Coronal and Sagittal reconstruction series were provided. CONTRAST: Isovue 370 VOLUME: 96 mL One or more dose reduction techniques were used (e.g., Automated exposure control, adjustment of the mA and/or kV according to patient size, use of iterative reconstruction technique. RADIATION DOSE SUMMARY: CTDlvol: 15.0 mGy DLP: 798.19 mGycm COMPARISON: CT abdomen and pelvis 01/29/2025. FINDINGS: Lung bases: Dependent changes in the posterior lungs. Liver: Liver steatosis. Gallbladder: Unremarkable. Spleen: Unremarkable. Pancreas: Unremarkable. Adrenals: Unremarkable. Kidneys: Unremarkable. No hydronephrosis. No nephrolithiasis. Bladder: Unremarkable. Reproductive Organs: Unremarkable. Bowel: No bowel obstruction. No bowel obstruction. Appendix: Unremarkable. Lymph nodes: No lymphadenopathy. Vasculature: No aneurysm. Atherosclerotic calcifications. Peritoneum / Retroperitoneum: No free air or free fluid. Bones: No acute bony abnormalities. CT/Abdomen/Pelvis W IV Cont ONLY IMPRESSION: No acute abdominopelvic abnormalities. Reading Location: [id number]
[2025-05-15 17:50] VITALS: BP 101/61; PULSE 70; RESP 16; TEMP 36.6; O2SAT 95
== END 2025-05-15 18:16 | disposition home or self-care (01) ==
PROVIDERS: Emergency Provider Emergency Medicine; PCP Internal Medicine; Visit Provider Emergency Medicine
DX: R10.11 Right upper quadrant pain (principal); R11.0 Nausea; I10 Essential (primary) hypertension; F17.210 Nicotine dependence, cigarettes, uncomplicated; E78.5 Hyperlipidemia, unspecified; Z90.710 Acquired absence of both cervix and uterus; Z90.49 Acquired absence of other specified parts of digestive tract; Z79.899 Other long term (current) drug therapy; F41.9 Anxiety disorder, unspecified; K21.9 Gastro-esophageal reflux disease without esophagitis; F32.A Depression, unspecified
CPT/HCPCS: 74177; 76705; 80053; 81001; 83605; 83690; 85025; 96361; 96374; 96375; 96376; 99283; Q9967; A4216; J2405